=== PATIENT | male | born 1945 | race Caucasian/White ===

== ENCOUNTER → 2018-02-12 08:30 | Outpatient (CLI) | payer MEDICARE, OTHER, SELFPAY ==
--- NOTE | 2018-02-12 | ASPOS_PTH ---
PATIENT: LIZZETTE BURGER LOC: [facility] U#:[id number] AGE/SX: 79/M ROOM: RE02/12/[address]: Dr. Marito Estevez MD : 1945 BED: DIS: SPEC #: [id number] RECD: 02/12/18 12:09 STATUS: MARKUS JESUS #: [id number] RYLAND: 02/12/18 00:[address]: Marito Estevez DEPT: CYTOLOGY RECD BY: Jose Fuentes ENTERED: 02/12/18 12:09 SP TYPE: ASP HERE OTHR DR: Dr. Lisa Cardenas MD Tissues: Postauricular region Procedures: Special Stain Group II Surgery Specimen Level IV Diff Quik Stain (control) Cell Block Cytology Other Fine Needle Asp on Site HEADER OPERATION: FNA left post auricular mass PRE-OP DIAGNOSIS: Left post auricular mass TISSUE SUBMITTED: Left post auricular mass, smear and cell block for cytology DIAGNOSIS CYTOLOGY Left posterior auricular mass, FNA (smears and cell block): Negative for malignant cells. See cytology study and comment. SJ:francesca 02/13/18 COMMENT The specimen is evaluated at the time of FNA by Dr. Tirado. Immediate Evaluation: Negative for malignant cells. Fibrofatty tissue and rare macrophages present. Correlation with clinical, radiologic findings and appropriate follow up are necessary. Rebiopsy is suggested if clinically indicated. CYTOLOGY STUDY Slides are reviewed. The specimen is paucicellular and consists of a minute fragment of fibrofatty tissue and rare macrophages and lymphocytes. The cell block is acellular. CYTOLOGY GROSS Received is 0.1 ml of goetz fluid labeled with the patient's name, and designated left post auricular mass. Two imprints are made from the submitted fluid and the rest is added to CytoLyt for cell block preparation. Submitted for cytology study. / AM:francesca 02/12/18 TC: Cannot code CPT: 11429, 37391, 13695, 21543
== END ==
PROVIDERS: Family Provider Internal Medicine; PCP Internal Medicine; Visit Provider Otolaryngology
DX: H61.192 Noninfective disorders of pinna, left ear (principal)
CPT/HCPCS: 10021; 88161; 88305; 88313

== ENCOUNTER 2018-06-05 10:46 | Emergency (ER) | payer MEDICARE, OTHER, SELFPAY ==
[2018-06-05 10:47] VITALS: BP 142/79; PULSE 58; RESP 18; TEMP 36.5; O2SAT 96; BMI 34.4
[2018-06-05 10:57] VITALS: BP 135/97; PULSE 56; RESP 14; O2SAT 95
--- NOTE | 2018-06-05 11:37 | EKG12_ITS ---
Test Reason : CP Blood Pressure : / mmHG Vent. Rate : 055 BPM Atrial Rate : 055 BPM P-R Int : 158 ms QRS Dur : 102 ms QT Int : 428 ms P-R-T Axes : 040 -17 -07 degrees QTc Int : 409 ms Sinus bradycardia Otherwise normal ECG Confirmed by AMALIA RAMIREZ, YAMILE ([id number]), telegraph editor FELICE LERNER ([id number]) on 06/09/2018 3:21:26 PM Referred By: PETRONA Confirmed By:YAMILE HOLLAND MD
--- NOTE | 2018-06-05 11:37 | RAD_ITS ---
STUDY: X-RAY CHEST REASON FOR EXAM: Male, 72 years old. Chest pain for 4 days TECHNIQUE: Single AP portable view of the chest. COMPARISON: December 14, 2016 FINDINGS: There remains mild elevation the right hemidiaphragm, nonspecific and stable. Minimal hypoventilatory changes noted at the right lung base otherwise lungs are clear. There is no demonstrated pleural abnormality. Normal size heart. Normal mediastinum and jr. Normal visualized pulmonary arteries. Mild atherosclerosis of the aortic arch noted. Normal visualized thoracic spine. Normal visualized ribs, clavicles, and shoulders. There is no demonstrated abnormality of the visualized soft tissue structures of the upper abdomen. RAD/Chest 1 View (Portable) IMPRESSION: No acute intrathoracic process. Stable appearance of the chest. Electronically Signed: Zohra Rey MD at 12:41 EDT , Service support ,
--- NOTE | 2018-06-05 11:56 | ED.DCSUM_ITS ---
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 He also indicates he is burping quite a bit. Indicates he had a prior negative cardiac stress test echo and other cardiac tests he was told at one time he might require an ablation to control the tachycardia but since being on the flecainide is been controlled he has had no fever no cough no history of DC PE or DVT wanted to explain the patient's been under considerable stress recently because of the sale of the [employer] he has been eating and drinking well bowel bladder habits been normal review of systems otherwise negative Physical Examination: [] Vital signs are within normal range see the nursing chart he is awake and alert he is resting comforting the bed head neck chest unremarkable the lungs are clear the heart tones are normal the abdomen soft nontender upper lower extremities unremarkable pulses are symmetric neurologically he is awake moving all 4 Test Results: [] Emergency Department Course and Treatment: [] The patient's EKG shows a sinus rhythm nothing acute, all of his labs are generally unremarkable see those reports, his creatinine is about 1.4 he had creatinines in that range in the past, on reevaluation he is remained stable vital signs remained stable and we discussed inpatient versus outpatient management he indicates he is been admitted before he understands the concept of occult cardiac disease sudden etc. is in the room with him, however he does not wish to be admitted he would prefer to go home and be managed as an outpatient, I spoke with Dr. Anaya his retail customer service representative we discussed all the above in detail by Dr. Anaya reports the patient had a prior negative cardiac cath, and an negative prior cardiac stress test, Dr. Anaya asked the patient call for an appointment and he would see him for close outpatient follow-up and otherwise he is to continue his regimen and notify Dr. Anaya or return for any changes Treatment Plan: [] Disposition: [] Home stable Impression: [] Nonspecific sense of chest discomfort, history of PVCs, history of A. fib This note was generated with [employer] software. It may contain incorrect words, spelling, and punctuation that were not noted in review of the chart prior to signing ED Disposition - Plan for ED Patient: Chief Complaint: Chest Pain Referrals: Lisa Cardenas MD [Primary Care Provider] -
[2018-06-05] MEDS: Aspirin 81 MG TAB.CHEW 324 MG PO (11:57)
[2018-06-05 11:58] VITALS: BP 153/101; PULSE 61; RESP 24; O2SAT 94
[2018-06-05 12:02] LABS: Absolute Lymphocyte Count 1.27 X10^3/ul (0.83-4.51); Absolute Neutrophil Count 4.7 X10^3/uL (2.0-7.7); Basophil# 0.04 X10^3/uL; Basophil% 0.5 % (0-1); Eosinophil# 0.48 X10^3/uL; Eosinophils% 6.6 % (0-5); Hematocrit 41.9 % (40-54); Hemoglobin 13.2 g/dl (13.0-16.5); Lymphocyte # 1.27 X10^3/ul (4.0); Lymphocyte % 17.4 % (19-41); Mean Corp Hgb Conc 31.5 g/gl (32-36); Mean Corpuscular Hgb 29.3 pg (27.0-32.0); Mean Corpuscular Volume 92.9 fL (80-94); Mean Platelet Vol. 10.3 fl (6.2-12.0); Monocyte# 0.81 X10^3/uL; Monocyte% 11.1 % (0-10); Neutrophil % 64.4 % (47-70); Platelet Count 223 K/mm3 (150-450); RBC Distribution Width SD 47.6 fl (35.1-43.9); Red Blood Count 4.51 M/mm3 (4.6-6.2); White Blood Count 7.3 K/mm3 (4.4-11.0)
[2018-06-05 12:03] LABS: POSITIVE COUNT NO; POSITIVE DIFFERENTIAL NO; POSITIVE MORPHOLOGY NO
[2018-06-05 12:13] LABS: Anion Gap 5 (5-15); BUN 24 mg/dL (7-18); BUN/Creat Ratio 16.1 RATIO (10-20); Calcium,Total 9.2 mg/dL (8.5-10.1); Chloride 106 mmol/L (98-107); Creatinine, Serum 1.49 mg/dL (0.70-1.30); EST Glomerular Filtration Rate 50 mL/min (>60); Est Glom Filt Rate - Afr Amer 60 mL/min (>60); Estimated Creatinine Clearance 47.63 ml/min; Glucose 109 mg/dL (74-106); Potassium 4.2 mmol/L (3.5-5.1); Sodium Level 141 mmol/L (136-145)
--- NOTE | 2018-06-05 12:57 | ED.DEP ---
ED Disposition - Plan for ED Patient: Chief Complaint: Chest Pain Instructions: ED Chest Pain Atypical Unkn Cause Referrals: Lisa Cardenas MD [Primary Care Provider] - Additional Instructions: Please call Dr. Anaya for follow-up appointment return for change in symptoms
[2018-06-05 13:14] VITALS: BP 135/78; PULSE 56; RESP 19; O2SAT 93
== END 2018-06-05 13:24 | disposition home or self-care (01) ==
LOC: ED 11:59
PROVIDERS: Emergency Provider Emergency Medicine; Family Provider Internal Medicine; PCP Internal Medicine
DX: R07.89 Other chest pain (principal); I49.3 Ventricular premature depolarization; I48.91 Unspecified atrial fibrillation; Z79.899 Other long term (current) drug therapy
CPT/HCPCS: 71045; 80048; 84484; 85025; 93005; 99285; A4216; J2405

== ENCOUNTER 2018-10-02 16:50 | Emergency (ER) | payer MEDICARE, OTHER, SELFPAY ==
[2018-10-02 16:50] VITALS: BP 152/91; PULSE 61; RESP 14; TEMP 36.4; O2SAT 95; BMI 35.2
--- NOTE | 2018-10-02 19:05 | CT_ITS ---
STUDY: CT BRAIN WITHOUT CONTRAST REASON FOR EXAM: Male, 72 years old. Fall RADIATION DOSAGE (If Supplied By Facility): CTDIvol = ( 44.99 ) mGy, DLP = ( 815.79 ) mGycm TECHNIQUE: Transaxial CT imaging of the brain was performed without administration of intravenous contrast material. Individualized dose optimization techniques were used for this CT. COMPARISON: None. FINDINGS: Normal soft tissue structures. Normal calvarium. Normal size ventricles and extra-axial spaces for the patient's age. Bilateral white matter microangiopathic ischemic changes of the cerebral hemispheres. Possible old lacunar infarcts or prominent perivascular spaces of the basal ganglia. Normal thalami. Normal brainstem. Normal cerebellum. There is no intracranial hemorrhage. There are no findings of an acute ischemic infarction. Normal visualized paranasal sinuses. CT/Brain/Head without Contrast IMPRESSION: Age-related and chronic changes of the brain. Electronically Signed: John Campos DO at 20:24 EST Tel [phone], Service support ,
--- NOTE | 2018-10-02 19:05 | CT_ITS ---
STUDY: CT CERVICAL SPINE WITHOUT CONTRAST REASON FOR EXAM: Male, 72 years old. Fall. RADIATION DOSAGE (If Supplied By Facility): CTDIvol = ( 30.17 ) mGy, DLP = ( 741.38 ) mGycm TECHNIQUE: High resolution transaxial imaging was performed without contrast material. Sagittal and coronal images were reconstructed. Individualized dose optimization techniques were used for this CT. COMPARISON: None FINDINGS: Normal craniovertebral junction. There are degenerative changes of the anterior atlantoaxial articulation. Normal odontoid process. There is loss of the normal cervical lordosis. There is multilevel degenerative disc disease and facet hypertrophy. C2-3: There is facet hypertrophy associated with narrowing of the left intervertebral neuroforamina. C3-4: There is fusion of the vertebral bodies. There is a posterior disc osteophyte causing stenosis of the central canal and bilateral narrowing of the neuroforamina. C4-5: There is a posterior disc osteophyte causing stenosis of the central canal and bilateral narrowing of the neuroforamina. C5-6: There is a posterior disc osteophyte causing stenosis of the central canal and bilateral narrowing of the neuroforamina. C6-7: There is a posterior disc osteophyte causing stenosis of the central canal and bilateral narrowing of the neuroforamina. C7-T1: There is a posterior disc osteophyte causing stenosis of the central canal and bilateral narrowing of the neuroforamina. Normal visualized soft tissue structures. CT/Spine Cervical without Contras IMPRESSION: Multilevel degenerative changes, as described above. Electronically Signed: Trena Gallardo MD at 20:21 EST Tel , Service support ,
--- NOTE | 2018-10-02 19:10 | ED.DCSUM_ITS ---
- ER Visit Summary Date of Service: 10/02/18 Chief Complaint: Fall History of Present Illness: The patient is a 72 M presenting after fall x2. Patient had a fall 2 weeks ago at a gas station when he tripped over the gas hose and fell forward hitting his chin. He did not lose consciousness. 1 week ago he slipped on ice and fell hitting the back of his head. He did not lose consciousness with this fall either. He is not on anticoagulants. He complains of right rib pain. His was concerned today because he did not remember making his bed. They are currently staying with friends. has noticed other problems with memory over the past week. Denies numbness or weakness. Denies vision or speech changes. Denies other complaints. Physical Examination: Vitals are stable. Patient is afebrile. Alert no acute distress. HEENT exam is unremarkable. Neck is supple. Mild diffuse tenderness with no step-off Lungs are clear and equal bilaterally. Right lateral chest wall tenderness with no crepitus Heart is regular rate and rhythm. Abdomen is soft nontender nondistended. No rebound or guarding. Extremities are unremarkable. Skin is warm and dry. No focal neurologic deficit. NIH 0 Remainder of exam is unremarkable. Emergency Department Course and Treatment: CT head and neck show no acute process. Right rib series shows RIBS: Acute right fourth and fifth rib fractures. CHEST: No acute cardiopulmonary process. Patient is given an incentive spirometer. He declined pain medication. He is resting comfortably on reevaluation. He has no further symptoms. He is advised to follow-up with his primary care physician. Advised return to ED if worsening complaints. Disposition: Discharge home Impression: Closed head injury, right fourth and fifth rib fracture This note was generated with [employer] dictation software. It may contain incorrect words, spelling, and punctuation that were not noted in review of the chart prior to signing ED Disposition - Plan for ED Patient: Instructions: ED Concussion, ED Fx Rib Referrals: Lisa Cardenas MD [Primary Care Provider] -
[2018-10-02 19:28] VITALS: BP 150/90; PULSE 55; RESP 18; O2SAT 93
--- NOTE | 2018-10-02 19:50 | RAD_ITS ---
STUDY: X-RAY - UNILATERAL RIBS ( RIGHT ) WITH CHEST REASON FOR EXAM: Male, 72 years old. Fall TECHNIQUE - RIBS: 4 view(s) of the ribs. TECHNIQUE - CHEST: PA COMPARISON: June 05, 2018 FINDINGS - RIBS: There are acute right lateral third and fourth rib fractures. FINDINGS - CHEST: The lungs are clear and expanded. There is no demonstrated pleural abnormality. Normal size heart. Normal mediastinum and jr. Normal visualized pulmonary arteries. There is atherosclerotic calcification of the aortic arch. Normal visualized thoracic spine. There is no demonstrated abnormality of the visualized soft tissue structures of the upper abdomen. RAD/Ribs Uni Min 3V w/PA Chest IMPRESSION: RIBS: Acute right fourth and fifth rib fractures. CHEST: No acute cardiopulmonary process. Electronically Signed: Trena Gallardo MD at 20:34 EST Tel , Service support ,
[2018-10-02 20:59] VITALS: BP 176/102; PULSE 58; RESP 16; O2SAT 97
--- NOTE | 2018-10-02 20:59 | ED.DEP ---
ED Disposition - Plan for ED Patient: Instructions: ED Concussion, ED Fx Rib Referrals: Lisa Cardenas MD [Primary Care Provider] -
== END 2018-10-02 21:18 | disposition home or self-care (01) ==
LOC: ED 19:13
PROVIDERS: Emergency Provider Emergency Medicine; Family Provider Internal Medicine; PCP Internal Medicine
DX: S22.41XA Multiple fractures of ribs, right side, initial encounter for closed fracture (principal); S09.90XA Unspecified injury of head, initial encounter; E11.9 Type 2 diabetes mellitus without complications; I10 Essential (primary) hypertension; E78.00 Pure hypercholesterolemia, unspecified; K21.9 Gastro-esophageal reflux disease without esophagitis; I48.91 Unspecified atrial fibrillation; Z79.82 Long term (current) use of aspirin; Z79.84 Long term (current) use of oral hypoglycemic drugs; Z79.899 Other long term (current) drug therapy; W00.0XXA Fall on same level due to ice and snow, initial encounter; Y93.89 Activity, other specified; Y92.89 Other specified places as the place of occurrence of the external cause; Y99.8 Other external cause status
CPT/HCPCS: 70450; 71101; 72125; 99282

== ENCOUNTER → 2020-06-20 10:53 | Outpatient (CLI) | payer MEDICARE, OTHER, SELFPAY ==
--- NOTE | 2020-06-20 10:53 | LYMN_PTH ---
PATIENT: LIZZETTE BURGER LOC: [facility] U#:[id number] AGE/SX: 79/M ROOM: RE06/20/[address]: Dr. Marito Estevez MD : 1945 BED: DIS: SPEC #: [id number] RECD: 06/20/20 14:59 STATUS: MARKUS JESUS #: [id number] RYLAND: 06/20/20 10:[address]: Marito Estevez DEPT: SURGICAL PATHOLOGY RECD BY: Sudha Watkins ENTERED: 06/21/20 09:38 SP TYPE: LYMPH NODE OTHR DR: Dr. 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 SJ:francesca 06/22/20 COMMENT The specimen is evaluated at the time of touch imprint by Dr. Eason. Immediate Evaluation = Paucicellular specimen. Significant number of lymphocytes are not seen. Case has been reviewed in consultation with Dr. iTrado who concurs with the above diagnosis. IDC:AM MICROSCOPIC DESCRIPTION Slides are reviewed. GROSS DESCRIPTION Received in saline is one container labeled with the patient's name and designated excision left neck mass. The specimen consists of an ovoid piece of goetz soft tissue measuring 1 x 1 x 0.5 cm. A section is saved for flow cytometry study, if needed. Two touch imprints are prepared. The entire specimen is submitted in one cassette. / AC:francecsa 06/21/20 TC:1 CPT: 76119, 98462
== END ==
PROVIDERS: PCP Internal Medicine; Referring Provider Otolaryngology; Visit Provider Otolaryngology
DX: R22.1 Localized swelling, mass and lump, neck (principal)
CPT/HCPCS: 88304; 88305; 88313

== ENCOUNTER 2020-08-23 11:25 | Emergency (ER) | payer MEDICARE, OTHER, SELFPAY ==
[2020-08-23 11:26] VITALS: BP 102/41; PULSE 162; RESP 20; TEMP 36.4; O2SAT 96; BMI 34.0
--- NOTE | 2020-08-23 11:46 | EKG12_ITS ---
Test Reason : IRREGULAR RYTHMN Blood Pressure : / mmHG Vent. Rate : 161 BPM Atrial Rate : 138 BPM P-R Int : 000 ms QRS Dur : 088 ms QT Int : 298 ms P-R-T Axes : 000 006 -54 degrees QTc Int : 487 ms Supraventricular tachycardia Marked ST abnormality, possible inferolateral subendocardial injury Abnormal ECG Confirmed by TYRONE RAMIREZ, HARLEEN ([id number]), news editor ANTONIA CHEN ([id number]) on 08/29/2020 9:20:54 AM Referred By: SHAWN Confirmed By:MAMI HANSEN MD
--- NOTE | 2020-08-23 11:50 | RAD_ITS ---
STUDY: X-RAY CHEST REASON FOR EXAM: Male, 74 years old. CHEST PAIN TECHNIQUE: Single AP portable view of the chest. COMPARISON: None. FINDINGS: The lungs are clear and expanded. There is no demonstrated pleural abnormality. Normal size heart. Normal mediastinum and jr. Normal visualized pulmonary arteries. Normal visualized aortic arch and descending thoracic aorta. Normal visualized thoracic spine. There is degenerative osteoarthritis of the bilateral shoulders. There is no demonstrated abnormality of the visualized soft tissue structures of the upper abdomen. RAD/Chest 1 View (Portable) IMPRESSION: Normal x-ray examination of the chest. Electronically Signed: Tavares Fuentes, at 12:25 EST Tel , Service support ,
[2020-08-23 11:51] VITALS: BP 181/110; PULSE 78; RESP 22; O2SAT 92
--- NOTE | 2020-08-23 11:53 | ED.DCSUM_ITS ---
History of Present Illness Chief Complaint: Palpitations Informant: Patient Narrative: Patient is a 74-year-old male who presents to the emergency department for generally not feeling well and feeling gassy. He states that he was out walking around whenever this hit him. He had 2 episodes like this on [place] but they resolved after taking an extra dose of his flecainide. He does have a distant history of atrial fibrillation. Is not on any anticoagulation now. Is only on baby aspirin. No history of heart attacks, DVT/PE. Denies any recent illness. He does not have any chest pain, shortness of breath or heart palpitations. Denies any abdominal pain or nausea/vomiting. He denies smoking history. Past Medical History - Allergies and Home Meds Allergies/Adverse Reactions: Allergies naproxen [From Naprosyn] Adverse Reaction (Verified 08/23/20 11:26) Nausea Primary Care Physician: Lisa Cardenas MD [Primary Care Provider] - Prior records reviewed: Yes Past Medical History: - - Hypertension, hyperlipidemia, asthma, A. fib Surgical History: cataract, tonsillectomy, - - Surgery for anal fissure. Smoking Status: Never smoker - Family History Maternal Family History: Reports: No pertinent history Paternal Family History: Reports: No pertinent history Review of Systems All systems negative except as indicated General: Reports: Malaise. Denies: Chills, Fever, Sweats Eyes: Denies: Visual changes - bilaterally, Diplopia ENT: Denies: Rhinorrhea, Sore throat Cardiovascular: Denies: Chest pain, Palpitations Respiratory: Denies: Dyspnea, Cough, Dyspnea on exertion Gastrointestinal: Denies: Abdominal pain, Nausea, Vomiting, Diarrhea Musculoskeletal: Denies: Back pain, Extremity Pain Skin: Denies: Rash, Wounds Neurological: Denies: Headache, Weakness, Numbness Physical Exam Vital Signs/Narrative: Vital Signs Temp Pulse Resp BP Pulse Ox 08/23/20 11:51 78 22 H 181/110 H 92 08/23/20 11:26 97.5 F L 162 H 20 H 102/41 L 96 Inital Vital Signs reviewed: Yes - Severe tachycardia General: Well nourished, Well developed, - - He does appear in mild distress Head: Normocephalic, Atraumatic Eyes: Perrl, EOMI ENT: Moist mucous membranes, No rhinorrhea Neck: Supple, Nontender Cardiovascular: Regular rhythm, No murmurs, Tachycardia Respiratory: No distress, CTA bilaterally, Chest nontender Abdomen: Soft, Nontender, Nondistended, Normal bowel sounds Back: Nontender, Normal Inspection Extremities: Nontender, No edema. Negative for: Calf Tenderness Skin: Normal color, No rash Neurological: Alert, Oriented x3, Cranial nerves II-XII grossly intact, Normal Strength, Normal Sensation Psychological: Normal affect, Normal Mood Diagnostic/Tx/Re-eval - EKG Initial EKG Interpretation: - - Rate of 161 bpm and SVT. Normal intervals. Normal axis. No significant ST elevations or depressions. Follow-up EKG Interpretation: - - Rate of 76 bpm and normal sinus rhythm. Normal intervals. Normal axis. No ST elevations or depressions. No T wave abnormalities. - Medical Decision Making Patient presents to the emergency department for generally not feeling well and felt gassy that he could belch. Upon arrival to the emergency department he was found to have a heart rate in the 160s. He was also hypotensive with maps in the low 60s. We did initially attempt to perform a vagal maneuver with carotid massage. This did not make any difference. We did help patient up to pads for potential cardioversion if blood pressure continued to drop. Adenosine was getting ready to be pushed. Patient had normal saline starting to be instilled. At that time he did convert to a normal sinus rhythm and blood pressure actually became hypertensive at that point. Lab work sent off and repeat EKG obtained. Will check chest x-ray. Patient's lab work-up did not reveal a significant acute abnormality. His magnesium was mildly low so this was replaced. His creatinine appears to be at baseline. I did contact his marketing sales representative and they recommended increase his metoprolol from 25 mg daily to 25 mg twice daily. We are going to follow-up with him as an outpatient otherwise. He has only seen the patient one other time and was not exactly sure why the patient has been on flecainide this entire time. He does want him to continue his normal dose of this at this time though. Patient was observed on the monitor and did have some PACs but otherwise did not convert back out of sinus rhythm. His blood pressure has been stable. He does feel much better and is comfortable going home at this time. Will discharge home in stable condition. Strict return precautions were discussed with him. He understands and is agreeable this plan. All questions were answered. ED Disposition - Plan for ED Patient: Disposition: Home or Assisted Living Diagnosis: SVT (supraventricular tachycardia) Instructions: ED About Arrhythmias Prescriptions: Metoprolol Tartrate 25 mg PO BID 30 Days #60 tab Prescription Printed Referrals: Lisa Cardenas MD [Primary Care Provider] - Additional Instructions: Please call your marketing sales representative office today to schedule appointment within the next week. Also increase your metoprolol to 25 mg twice a day
--- NOTE | 2020-08-23 11:53 | EKG12_ITS ---
Test Reason : REPEAT Blood Pressure : / mmHG Vent. Rate : 076 BPM Atrial Rate : 076 BPM P-R Int : 164 ms QRS Dur : 094 ms QT Int : 384 ms P-R-T Axes : 035 -10 003 degrees QTc Int : 432 ms Normal sinus rhythm Normal ECG Confirmed by TYRONE RAMIREZ, HARLEEN ([id number]), mapping editor FELICE LERNER ([id number]) on 08/30/2020 4:13:51 PM Referred By: MAURICIO Confirmed By:MAMI HANSEN MD
[2020-08-23 11:56] LABS: Absolute Lymphocyte Count 1.37 X10^3/uL (0.83-4.51); Absolute Neutrophil Count 5.9 X10^3/uL (2.0-7.7); Basophil# 0.06 X10^3/uL; Basophil% 0.7 % (0-1); Eosinophil# 0.43 X10^3/uL; Hematocrit 50.4 % (40-54); Lymphocyte # 1.37 X10^3/ul (4.0); Lymphocyte % 15.8 % (19-41); Mean Corp Hgb Conc 31.7 g/dL (32-36); Mean Corpuscular Hgb 30.5 pg (27.0-32.0); Mean Platelet Vol. 10.9 fl (6.2-12.0); Monocyte# 0.91 X10^3/uL; Monocyte% 10.5 % (0-10); NRBC Flagged by Analyzer 0 % (0-5); Neutrophil # 5.88 X10^3/uL (2.7-7.7); Neutrophil % 67.8 % (47-70); Platelet Count 238 K/mm3 (150-450); RBC Distribution Width CV 13.9 % (11.6-14.6); Red Blood Count 5.25 M/mm3 (4.6-6.2); White Blood Count 8.7 K/mm3 (4.4-11.0)
[2020-08-23 12:11] LABS: Anion Gap 6 (5-15); BUN 21 mg/dL (7-18); BUN/Creat Ratio 13.3 RATIO (10-20); Calcium,Total 9.5 mg/dL (8.5-10.1); Chloride 105 mmol/L (98-107); Creatinine, Serum 1.58 mg/dL (0.70-1.30); EST Glomerular Filtration Rate 46 mL/min (>60); Est Glom Filt Rate - Afr Amer 56 mL/min (>60); Estimated Creatinine Clearance 42.26 ml/min; Glucose 154 mg/dL (74-106); Magnesium 1.5 mg/dL (1.6-2.6); Potassium 3.8 mmol/L (3.5-5.1); Sodium Level 139 mmol/L (136-145)
[2020-08-23] MEDS: 0.9% Normal Saline 1,000 ML 999 ML IV (12:30)
[2020-08-23 14:00] VITALS: BP 135/86; PULSE 66; RESP 18; O2SAT 96
[2020-08-23 15:00] VITALS: BP 136/92; PULSE 63
== END 2020-08-23 15:03 | disposition home or self-care (01) ==
PROVIDERS: Emergency Provider Emergency Medicine; PCP Internal Medicine
DX: I47.1 Supraventricular tachycardia (principal)
CPT/HCPCS: 71045; 80048; 83735; 84484; 85025; 93005; 99284; J7030; A4216; J0153

== ENCOUNTER 2021-08-25 09:49 | Emergency (ER) | payer MEDICARE, OTHER, SELFPAY ==
[2021-08-25] VITALS (11 sets, daily range): BP systolic 110–153; BP diastolic 60–104; PULSE 83–136; RESP 18–25; TEMP 36.6; O2SAT 92–95; BMI 37.1
--- NOTE | 2021-08-25 10:13 | EKG12_ITS ---
Test Reason : AFIB Blood Pressure : / mmHG Vent. Rate : 137 BPM Atrial Rate : 141 BPM P-R Int : 000 ms QRS Dur : 098 ms QT Int : 306 ms P-R-T Axes : 000 -07 -28 degrees QTc Int : 462 ms Atrial fibrillation with premature ventricular or aberrantly conducted complexes Nonspecific ST abnormality Abnormal ECG Confirmed by RIO RAMIREZ, CHATO ([id number]), state editor SHERRELL GRADY ([id number]) on 08/30/2021 9:55:45 AM Referred By: CESAR Confirmed By:CHATO PATE MD
[2021-08-25 10:23] LABS: Absolute Lymphocyte Count 1.58 X10^3/uL (0.83-4.51); Absolute Neutrophil Count 4.5 X10^3/uL (2.0-7.7); Basophil# 0.08 X10^3/uL; Basophil% 1.1 % (0-1); Eosinophil# 0.42 X10^3/uL; Eosinophils% 5.7 % (0-5); Hematocrit 47.4 % (40-54); Hemoglobin 15.6 g/dL (13.0-16.5); Lymphocyte # 1.58 X10^3/ul (0.83-4.51); Lymphocyte % 21.3 % (19-41); Mean Corp Hgb Conc 32.9 g/dL (32-36); Mean Corpuscular Hgb 30.8 pg (27.0-32.0); Mean Corpuscular Volume 93.5 fL (80-94); Mean Platelet Vol. 10.6 fl (6.2-12.0); Monocyte% 10.8 % (0-10); NRBC Flagged by Analyzer 0 % (0-5); Neutrophil # 4.54 X10^3/uL (2.7-7.7); Platelet Count 251 K/mm3 (150-450); RBC Distribution Width CV 13.2 % (11.6-14.6); Red Blood Count 5.07 M/mm3 (4.6-6.2); White Blood Count 7.4 K/mm3 (4.4-11.0)
[2021-08-25] MEDS: dilTIAZem 25 MG/5 ML Vial 10 MG IV BOLUS ×2 (10:33→12:05)
--- NOTE | 2021-08-25 10:33 | EDS_ITS ---
HPI History of Present Illness Chief Complaint: Palpitations Narrative Narrative: 75-year-old male with history of atrial fibrillation presenting with palpitations. He states this started about 7 AM. Patient states that he is on flecainide 50 mg, metoprolol tartrate 25 mg p.o. twice daily. He states that his arcgis developer told him in the past if he has breakthrough atrial fibrillation that he should take an extra dose of the flecainide which he did. His first dose was at about 8:00. A second dose was about 840. Patient denies any chest pain or shortness of breath. He has no leg swelling. He is not had fever, chills, cough. Patient states that he is not on anticoagulation for his atrial fibrillation. Patient relates that his last breakthrough was years ago and he states he was given magnesium. His arcgis developer stated that his magnesium was not low enough to cause of breakthrough atrial fibrillation however he does state that his heart rate got better with magnesium. Patient states that he is not anticoagulated with his atrial fibrillation. [facility] Medical History Afib Anal fissure Diabetes GERD (gastroesophageal reflux disease) High blood cholesterol Hypertension Home Medications Centrum Silver 1 ea PO DAILY 07/24/13 [History Last Taken 12/14/16 07:00] aspirin 81 mg PO DAILY@0800 07/24/13 [History Last Taken 12/14/16 07:00] lisinopril 20 mg PO DAILY 07/24/13 [History Last Taken 12/14/16 07:00] metformin 1,000 mg PO BIDCM 07/24/13 [History Last Taken 12/14/16 07:00] metoprolol tartrate 25 mg PO BID 07/24/13 [History Last Taken 12/14/16 07:00] tamsulosin 0.4 mg PO BID 07/24/13 [History Last Taken 12/14/16 07:00] biotin 5 mg PO DAILY 12/14/16 [History Last Taken Unknown] flecainide 50 mg PO BID 12/14/16 [History Last Taken Unknown] pravastatin [Pravachol] 40 mg PO QHS 12/14/16 [History Last Taken Unknown] pantoprazole 40 mg PO DAILY #30 tablet 12/15/16 [Rx Last Taken Unknown] coenzyme Q10 200 mg PO DAILY 10/02/18 [History Last Taken Unknown] apixaban [Eliquis] 5 mg PO BID #74 tab 08/25/21 [Rx Last Taken Unknown] fluticasone furoate-vilanterol [Breo Ellipta] 1 inh INHALATION DAILY 08/25/21 [History Last Taken Unknown] levalbuterol tartrate [Xopenex HFA] 1 puff INHALATION Q6H 08/25/21 [History Last Taken Unknown] magnesium oxide 400 mg PO BID #60 tab 08/25/21 [Rx Last Taken Unknown] metoprolol tartrate 75 mg PO BID #60 tab 08/25/21 [Rx Last Taken Unknown] Allergy/AdvReac Type Severity Reaction Status Date / Time naproxen [From Naprosyn] AdvReac Nausea Verified 08/25/21 09:57 Surgical History Hx of tonsillectomy Social History Smoking Status: Never smoker ROS ROS ED Constitutional Constitutional ED: Denies chills or fever(s) Eyes Eyes: Denies blurry vision or change in vision ENT ENT ED: Denies rhinorrhea or sore throat Cardiovascular Cardiovascular: Reports palpitations and racing heartbeat; Denies chest pain Respiratory/Chest Respiratory/Chest: Denies cough, dyspnea, dyspnea on exertion or sputum Gastrointestinal Gastrointestinal: Denies abdominal pain, nausea or vomiting Genitourinary Genitourinary ED: Denies dysuria Musculoskeletal Musculoskeletal: Denies arthralgias or myalgias Integumentary Denies Abrasions or rash Neurologic Neurologic: Denies headache(s) or paresthesias Psychiatric Psychiatric: Denies anxiety or depression EXAM Physical Exam Const Vital Signs: 08/25/21 09:51 08/25/21 10:05 08/25/21 10:36 Temperature 97.9 F Temperature Source Oral Pulse Rate 133 H Respiratory Rate 25 H Respiratory Effort Normal Non-Labored Respiratory Pattern Normal Blood Pressure 153/104 H Blood Pressure Mean 120 Pulse Ox 95 95 Oxygen Delivery Method Room Air Room Air 08/25/21 10:50 08/25/21 12:07 08/25/21 13:05 Temperature Temperature Source Pulse Rate 118 H 136 H 128 H Respiratory Rate 18 23 H 20 H Respiratory Effort Respiratory Pattern Blood Pressure 144/102 H 149/96 H 141/90 H Blood Pressure Mean 116 113 107 Pulse Ox 93 93 95 Oxygen Delivery Method Room Air Room Air Room Air 08/25/21 14:02 08/25/21 14:26 08/25/21 15:01 Temperature Temperature Source Pulse Rate 129 H 97 99 Respiratory Rate 18 19 H 18 Respiratory Effort Respiratory Pattern Blood Pressure 133/89 H 133/89 H 110/60 Blood Pressure Mean 103 103 76 Pulse Ox 94 93 94 Oxygen Delivery Method Room Air Room Air Room Air 08/25/21 16:01 08/25/21 17:22 08/25/21 17:53 Temperature Temperature Source Pulse Rate 83 120 H 113 H Respiratory Rate 24 H 21 H Respiratory Effort Respiratory Pattern Blood Pressure 126/76 H 115/95 H 115/82 H Blood Pressure Mean 92 101 Pulse Ox 92 94 94 Oxygen Delivery Method Room Air Room Air Positive well nourished General Appearance ED: NAD; Negative for pallor HEENT Reports moist mucous membranes normocephalic and atraumatic Eyes PERRL and EOMs intact bilaterally General Eye ED: Negative for pale conjunctiva or scleral icterus Neck no lymphadenopathy and supple Resp normal respiratory effort Effort and Inspection: respiratory distress Cardio Rate: tachycardic Rhythm: abnormal rhythm irregularly irregular GI normal to inspection, nondistended, normoactive bowel sounds Extremity General Extremety ED: Negative for edema or tenderness General Extremity: Negative for edema Neuro oriented x3 Sensorium / Orientation: awake and alert Psych mental status grossly normal Skin General Skin Exam: Negative for jaundice or pallor MDM MDM MDM Narrative Medical decision making narrative: At the time of my evaluation the patient is noted to have runs of sinus rhythm alternating with what looks like atrial fibrillation on the monitor. He has taken an extra dose of his flecainide prior to arrival and this is about 2 hours ago. The patient's states that his heart rate was around 180 at home and is now down to 1 15-1 30s. It does look as though the medication is possibly starting to work. I will give him 10 mg dose of Cardizem IV. Patient did not respond fully and was given a second dose of Cardizem 10 mg IV at which point his heart rate came down to 90. His lab work-up currently shows that his CBC and BMP are normal. High-sensitivity troponin is 17. BNP slightly elevated at 101.5 however chest x-ray my interpretation shows no acute cardiopulmonary process and there is no sign of CHF. Magnesium is normal at 1.9. Patient came tachycardic and was given a dose of Cardizem 20 mg IV. I spoke with Dr. Salter regarding his medications to try to get him home because I cannot contact his arcgis developer because they are not in office and there is nobody route contractor. She did recommend giving him 75 mg of metoprolol tartrate here in the ED. She also recommended giving him magnesium to the IV 4 g. Patient is also recommended to start 75 mg metoprolol tartrate twice daily as well as start Eliquis 5 mg p.o. twice daily. It is recommended that he hold his flecainide for now. He will follow-up with his arcgis developer on Saturday. His heart rate is now stable. All instructions discussed with family and him. They understand. They are given return precautions. Impression: 1. A. fib with RVR Lab Data Attestation: I reviewed the patient's lab results. Labs: Laboratory Results - last 24 hr 08/25/21 08/25/21 08/25/21 09:40 09:40 09:40 WBC 7.4 RBC 5.07 Hgb 15.6 Hct 47.4 MCV 93.5 MCH 30.8 MCHC 32.9 RDW Std Deviation 45.0 H RDW Coeff of Justice 13.2 Plt Count 251 MPV 10.6 Immature Gran % (Auto) 0.100 Neut % (Auto) 61.0 Lymph % (Auto) 21.3 [place] % (Auto) 10.8 H Eos % (Auto) 5.7 H Baso % (Auto) 1.1 H Absolute Neuts (auto) 4.5 Absolute Lymphs (auto) 1.58 Nucleated RBC % 0 Sodium 141 Potassium 3.8 Chloride 105 Carbon Dioxide 31.0 Anion Gap 5 BUN 21 H Creatinine 1.26 Estim Creat Clear Calc 52.21 Est GFR (MDRD) Af Amer 72 Est GFR (MDRD) Non-Af 60 BUN/Creatinine Ratio 16.7 Glucose 227 H Calcium 9.6 Magnesium Troponin I High Sens 17 B-Natriuretic Peptide 101.5 H 08/25/21 09:40 WBC RBC Hgb Hct MCV MCH MCHC RDW Std Deviation RDW Coeff of Justice Plt Count MPV Immature Gran % (Auto) Neut % (Auto) Lymph % (Auto) [place] % (Auto) Eos % (Auto) Baso % (Auto) Absolute Neuts (auto) Absolute Lymphs (auto) Nucleated RBC % Sodium Potassium Chloride Carbon Dioxide Anion Gap BUN Creatinine Estim Creat Clear Calc Est GFR (MDRD) Af Amer Est GFR (MDRD) Non-Af BUN/Creatinine Ratio Glucose Calcium Magnesium 1.9 Troponin I High Sens B-Natriuretic Peptide Radiography Diagnostic Testing: Clinical Impression(s) from Imaging Studies Chest X-Ray 08/25/21 10:34 IMPRESSION: Nonacute portable x-ray examination of the chest. Electronically Signed: Julius Hutson MD (Brooks) at 10:44 EST , Service support , Discharge Plan Triage Chief Complaint: Palpitations ED Provider: Jeff Jiménez Dx/Rx/DC Orders Instructions: ED AFIB Prescriptions: New metoprolol tartrate 75 mg tablet 75 mg PO BID Qty: 60 RF: 0 Eliquis 5 mg tablet 5 mg PO BID Qty: 74 RF: 0 magnesium oxide 400 mg magnesium tablet 400 mg PO BID Qty: 60 RF: 0 No Action lisinopril 20 MG tablet 20 mg PO DAILY RF: 0 tamsulosin 0.4 MG capsule 0.4 mg PO BID RF: 0 metformin 1,000 MG tablet 1,000 mg PO BIDCM RF: 0 metoprolol tartrate 50 MG tablet 25 mg PO BID RF: 0 aspirin 81 MG tablet,chewable 81 mg PO DAILY@0800 RF: 0 Centrum Silver 1 EACH tablet 1 ea PO DAILY RF: 0 biotin 5 MG capsule 5 mg PO DAILY RF: 0 flecainide 100 MG tablet 50 mg PO BID RF: 0 pravastatin [Pravachol] 20 MG tablet 40 mg PO QHS RF: 0 pantoprazole 40 MG tablet 40 mg PO DAILY Qty: 30 RF: 0 coenzyme Q10 50 MG tablet,chewable 200 mg PO DAILY RF: 0 levalbuterol tartrate [Xopenex HFA] 45 mcg/actuation Hfa Aerosol Inhaler 1 puff INHALATION Q6H RF: 0 Breo Ellipta 100-25 mcg/dose Blister With Device 1 inh INHALATION DAILY RF: 0 Primary Care Provider: Lisa Cardenas Referrals: Lisa Cardenas MD [Primary Care Provider] - Disposition Disposition: Home, Self Care Discharge Date/Time: 08/25/21 17:54
--- NOTE | 2021-08-25 10:34 | RAD_ITS ---
STUDY: X-RAY CHEST REASON FOR EXAM: Male, 75 years old. chest pain TECHNIQUE: AP COMPARISON: 08/23/2020 FINDINGS: Lungs are underexpanded with mild elevation of the right hemidiaphragm. No airspace consolidation. There is no demonstrated pleural abnormality. Normal size heart. Normal mediastinum and jr. Normal visualized pulmonary arteries. There is atherosclerotic calcification of the aortic arch with tortuosity. No acute bony process. There is no demonstrated abnormality of the visualized soft tissue structures of the upper abdomen. RAD/Chest 1 View (Portable) IMPRESSION: Nonacute portable x-ray examination of the chest. Electronically Signed: Julius Hutson MD (Brooks) at 10:44 EST , Service support ,
[2021-08-25 10:36] LABS: Anion Gap 5 (5-15); BUN 21 mg/dL (7-18); BUN/Creat Ratio 16.7 RATIO (10-20); Calcium,Total 9.6 mg/dL (8.5-10.1); Chloride 105 mmol/L (98-107); Creatinine, Serum 1.26 mg/dL (0.70-1.30); EST Glomerular Filtration Rate 60 mL/min (>60); Est Glom Filt Rate - Afr Amer 72 mL/min (>60); Estimated Creatinine Clearance 52.21 ml/min; Glucose 227 mg/dL (74-106); Potassium 3.8 mmol/L (3.5-5.1); Sodium Level 141 mmol/L (136-145); Troponin-I HS 17 pg/mL (3.0-78.0)
[2021-08-25 10:43] LABS: BNP,B-Type NATRIURETIC PEPTIDE 101.5 pg/mL (0-100)
[2021-08-25 11:09] LABS: Magnesium 1.9 mg/dL (1.6-2.6)
[2021-08-25] MEDS: dilTIAZem 25 MG/5 ML Vial 20 MG IV BOLUS (13:03)
[2021-08-25] MEDS: Metoprolol Tartrate 25 MG Tablet 75 MG PO (13:52)
[2021-08-25] MEDS: Magnesium Sulfate 4gm/100mL 4 GM/100 ML IV.SOLN. IV (13:53)
--- NOTE | 2021-08-25 16:13 | PCM.CONS.C ---
HPI Consult Data Date of Consult: 08/26/21 HPI Narrative HPI Narrative: LIZZETTE BURGER, is a 75 M who presents COUNT INCLUDES [facility] Medical History Afib Anal fissure Diabetes GERD (gastroesophageal reflux disease) High blood cholesterol Hypertension Home Medications Centrum Silver 1 ea PO DAILY 07/24/13 [History Last Taken 12/14/16 07:00] aspirin 81 mg PO DAILY@0800 07/24/13 [History Last Taken 12/14/16 07:00] lisinopril 20 mg PO DAILY 07/24/13 [History Last Taken 12/14/16 07:00] metformin 1,000 mg PO BIDCM 07/24/13 [History Last Taken 12/14/16 07:00] metoprolol tartrate 25 mg PO BID 07/24/13 [History Last Taken 12/14/16 07:00] tamsulosin 0.4 mg PO BID 07/24/13 [History Last Taken 12/14/16 07:00] biotin 5 mg PO DAILY 12/14/16 [History Last Taken Unknown] flecainide 50 mg PO BID 12/14/16 [History Last Taken Unknown] pravastatin [Pravachol] 40 mg PO QHS 12/14/16 [History Last Taken Unknown] pantoprazole 40 mg PO DAILY #30 tablet 12/15/16 [Rx Last Taken Unknown] coenzyme Q10 200 mg PO DAILY 10/02/18 [History Last Taken Unknown] apixaban [Eliquis] 5 mg PO BID #74 tab 08/25/21 [Rx Last Taken Unknown] fluticasone furoate-vilanterol [Breo Ellipta] 1 inh INHALATION DAILY 08/25/21 [History Last Taken Unknown] levalbuterol tartrate [Xopenex HFA] 1 puff INHALATION Q6H 08/25/21 [History Last Taken Unknown] magnesium oxide 400 mg PO BID #60 tab 08/25/21 [Rx Last Taken Unknown] metoprolol tartrate 75 mg PO BID #60 tab 08/25/21 [Rx Last Taken Unknown] Allergy/AdvReac Type Severity Reaction Status Date / Time naproxen [From Naprosyn] AdvReac Nausea Verified 08/25/21 09:57 Surgical History Hx of tonsillectomy Social History Smoking Status: Never smoker Objective Data Vital Signs: Vital Signs Temp Pulse Resp BP Pulse Ox 97.9 F 83 24 H 126/76 H 92 08/25/21 09:51 08/25/21 16:01 08/25/21 16:01 08/25/21 16:01 08/25/21 16:01 Oxygen Delivery Method Room Air Weight: 251 lb 8.759 oz Body Mass Index (BMI) 37.1 Lab / Micro Data Result Diagrams: 08/25/21 09:40 08/25/21 09:40 Labs: Laboratory Results - last 24 hr 08/25/21 09:40: WBC 7.4, RBC 5.07, Hgb 15.6, Hct 47.4, MCV 93.5, MCH 30.8, MCHC 32.9, RDW Std Deviation 45.0 H, RDW Coeff of Justice 13.2, Plt Count 251, MPV 10.6, Immature Gran % (Auto) 0.100, Neut % (Auto) 61.0, Lymph % (Auto) 21.3, [place] % (Auto) 10.8 H, Eos % (Auto) 5.7 H, Baso % (Auto) 1.1 H, Absolute Neuts (auto) 4.5, Absolute Lymphs (auto) 1.58, Nucleated RBC % 0 08/25/21 09:40: Sodium 141, Potassium 3.8, Chloride 105, Carbon Dioxide 31.0, Anion Gap 5, BUN 21 H, Creatinine 1.26, Estim Creat Clear Calc 52.21, Est GFR (MDRD) Af Amer 72, Est GFR (MDRD) Non-Af 60, BUN/Creatinine Ratio 16.7, Glucose 227 H, Calcium 9.6, Troponin I High Sens 17 08/25/21 09:40: B-Natriuretic Peptide 101.5 H 08/25/21 09:40: Magnesium 1.9 Cardiology Labs/Tests 08/25/21 09:40: WBC 7.4, RBC 5.07, Hgb 15.6, Hct 47.4, MCV 93.5, MCH 30.8, MCHC 32.9, Plt Count 251, MPV 10.6, Immature Gran % (Auto) 0.100, Neut % (Auto) 61.0, Lymph % (Auto) 21.3, [place] % (Auto) 10.8 H, Eos % (Auto) 5.7 H, Baso % (Auto) 1.1 H, Absolute Neuts (auto) 4.5, Nucleated RBC % 0 08/25/21 09:40: Sodium 141, Potassium 3.8, Chloride 105, Carbon Dioxide 31.0, Anion Gap 5, BUN 21 H, Creatinine 1.26, Est GFR (MDRD) Af Amer 72, Est GFR (MDRD) Non-Af 60, BUN/Creatinine Ratio 16.7, Glucose 227 H, Calcium 9.6 08/25/21 09:40: B-Natriuretic Peptide 101.5 H 08/25/21 09:40: Magnesium 1.9 Rhythm: EKG: ECHO: Stress Test: Cardiac Cath: PCI: CT Surgery: Holter monitor: EPS: PPM: CXR: Chest CT Scan: Radiography Diagnostic Testing: Radiology Impression Chest X-Ray 08/25/21 10:34 IMPRESSION: Nonacute portable x-ray examination of the chest. Electronically Signed: Julius Hutson MD (Brooks) at 10:44 EST , Service support ,
--- NOTE | 2021-08-25 16:23 | PCM.CONS.C ---
HPI Consult Data Date of Consult: 08/26/21 HPI Narrative HPI Narrative: LIZZETTE BURGER, is a 75 M who presents to the emergency department with symptomatic atrial fibrillation with rapid ventricular rate. He does have a history of atrial fibrillation dating back several years, with infrequent spells, and reports that the last symptomatic episode was in July 2020 at which time he came to the emergency department. Prior EKGs in the system have shown both atrial fibrillation with rapid ventricular rate as well as sinus rhythm and sinus bradycardia. He does not report any chest pressure tightness or heaviness no lightheadedness presyncope or syncope. No bleeding diathesis no recent travel or trauma no fever chills or cough no orthopnea PND or lower extremity edema. Based on his age of 75, hypertension and diabetes his [id number] score is 3. He remains on high risk medication flecainide. The emergency department MD felt that patient may have had sinus beats in between. The duration that I spent with him I did not see any sinus rhythm, and EKG shows atrial fibrillation with rapid ventricular rate. Laboratory data reviewed, magnesium is on the low side. Patient says that he was on anticoagulation which was discontinued because of the very infrequent nature of his atrial fibrillation. He does report diagnosis of TIA dating back several years. Details not available. On physical examination he is alert oriented x3 speaking in full sentences blood pressure is in the 1 teens systolic heart rate is anywhere between 80s and 110s. Patient has received 75 mg of p.o. metoprolol and some IV diltiazem in the emergency department. Oxygen saturation is 98% on room air I appreciate no jugular venous distention no carotid bruit lungs are clear heart sounds are irregularly irregular without murmur rub or gallop abdomen is soft and nontender extremities show no edema distal pulses are palpable 2+ out of 4 plus neurologically he has no gross cranial nerve deficits and moves all extremities. Skin shows no petechia or rash. Musculoskeletal no major deformities identified. Laboratory data reviewed. Chest x-ray reviewed. Assessment: 1. Symptomatic atrial fibrillation with rapid ventricular rate. Patient reports that he does have a watch that documents his heart rate, frequently heart rates are in the 60s to 80s range, today he noticed that his heart rate was in the 140s. 2. Chads 2 vascular score of at least 3 3. Patient remains on high risk medication flecainide 4. History of obstructive sleep apnea. 5. Increased BMI 6. Hypomagnesemia. 7. Nuclear perfusion imaging study Sethiscan Myoview 2017-no ischemia preserved LV systolic function 8. Prior Holter monitors have shown supraventricular and ventricular premature beats. Recommendations: 1. Extensive discussion of atrial fibrillation and management strategies. 2. Patient is recommended to be on anticoagulation, he does not report any bleeding diathesis. 3. Options of anticoagulation discussed-warfarin versus newer agents. We have opted for Eliquis. 4. Rationale for anticoagulation and the risk of bleeding with anticoagulation also discussed. 5. Would prefer to avoid hospitalization if rate can be controlled, close outpatient follow-up and additional work-up and treatment per primary manager biologics Dr. Mccullough. 6. Increase metoprolol titrate to 50 mg p.o. 3 times daily, hold if heart rate is less than or equal to 60 7. Hold flecainide 8. Will need additional cardiac work-up and close follow-up, with primary cardiology 9. Patient is encouraged to make an appointment early next week for cardiology follow-up 10. IV magnesium sulfate 4 g today 11. Magnesium oxide 400 mg p.o. twice daily, may cut back to 400 mg daily if diarrhea occurs. 12. If symptoms recur, patient is encouraged to reseek emergent medical attention. You for the opportunity to be involved in patient's care, please do not hesitate to call if further questions arise, Sincerely, Bharati Salter MD [facility] Medical History Afib Anal fissure Diabetes GERD (gastroesophageal reflux disease) High blood cholesterol Hypertension Home Medications Centrum Silver 1 ea PO DAILY 07/24/13 [History Last Taken 12/14/16 07:00] aspirin 81 mg PO DAILY@0800 07/24/13 [History Last Taken 12/14/16 07:00] lisinopril 20 mg PO DAILY 07/24/13 [History Last Taken 12/14/16 07:00] metformin 1,000 mg PO BIDCM 07/24/13 [History Last Taken 12/14/16 07:00] metoprolol tartrate 25 mg PO BID 07/24/13 [History Last Taken 12/14/16 07:00] tamsulosin 0.4 mg PO BID 07/24/13 [History Last Taken 12/14/16 07:00] biotin 5 mg PO DAILY 12/14/16 [History Last Taken Unknown] flecainide 50 mg PO BID 12/14/16 [History Last Taken Unknown] pravastatin [Pravachol] 40 mg PO QHS 12/14/16 [History Last Taken Unknown] pantoprazole 40 mg PO DAILY #30 tablet 12/15/16 [Rx Last Taken Unknown] coenzyme Q10 200 mg PO DAILY 10/02/18 [History Last Taken Unknown] apixaban [Eliquis] 5 mg PO BID #74 tab 08/25/21 [Rx Last Taken Unknown] fluticasone furoate-vilanterol [Breo Ellipta] 1 inh INHALATION DAILY 08/25/21 [History Last Taken Unknown] levalbuterol tartrate [Xopenex HFA] 1 puff INHALATION Q6H 08/25/21 [History Last Taken Unknown] magnesium oxide 400 mg PO BID #60 tab 08/25/21 [Rx Last Taken Unknown] metoprolol tartrate 75 mg PO BID #60 tab 08/25/21 [Rx Last Taken Unknown] Allergy/AdvReac Type Severity Reaction Status Date / Time naproxen [From Naprosyn] AdvReac Nausea Verified 08/25/21 09:57 Surgical History Hx of tonsillectomy Social History Smoking Status: Never smoker Risk Stratification Risk Stratification Applicable: No Charges/Coding Visit Charges Office Visits / Consults: 37091 OP Consult L4 Objective Data Vital Signs: Vital Signs Temp Pulse Resp BP Pulse Ox 97.9 F 83 24 H 126/76 H 92 08/25/21 09:51 08/25/21 16:01 08/25/21 16:01 08/25/21 16:01 08/25/21 16:01 Oxygen Delivery Method Room Air Weight: 251 lb 8.759 oz Body Mass Index (BMI) 37.1 Lab / Micro Data Result Diagrams: 08/25/21 09:40 08/25/21 09:40 Labs: Laboratory Results - last 24 hr 08/25/21 09:40: WBC 7.4, RBC 5.07, Hgb 15.6, Hct 47.4, MCV 93.5, MCH 30.8, MCHC 32.9, RDW Std Deviation 45.0 H, RDW Coeff of Justice 13.2, Plt Count 251, MPV 10.6, Immature Gran % (Auto) 0.100, Neut % (Auto) 61.0, Lymph % (Auto) 21.3, [place] % (Auto) 10.8 H, Eos % (Auto) 5.7 H, Baso % (Auto) 1.1 H, Absolute Neuts (auto) 4.5, Absolute Lymphs (auto) 1.58, Nucleated RBC % 0 08/25/21 09:40: Sodium 141, Potassium 3.8, Chloride 105, Carbon Dioxide 31.0, Anion Gap 5, BUN 21 H, Creatinine 1.26, Estim Creat Clear Calc 52.21, Est GFR (MDRD) Af Amer 72, Est GFR (MDRD) Non-Af 60, BUN/Creatinine Ratio 16.7, Glucose 227 H, Calcium 9.6, Troponin I High Sens 17 08/25/21 09:40: B-Natriuretic Peptide 101.5 H 08/25/21 09:40: Magnesium 1.9 Cardiology Labs/Tests 08/25/21 09:40: WBC 7.4, RBC 5.07, Hgb 15.6, Hct 47.4, MCV 93.5, MCH 30.8, MCHC 32.9, Plt Count 251, MPV 10.6, Immature Gran % (Auto) 0.100, Neut % (Auto) 61.0, Lymph % (Auto) 21.3, [place] % (Auto) 10.8 H, Eos % (Auto) 5.7 H, Baso % (Auto) 1.1 H, Absolute Neuts (auto) 4.5, Nucleated RBC % 0 08/25/21 09:40: Sodium 141, Potassium 3.8, Chloride 105, Carbon Dioxide 31.0, Anion Gap 5, BUN 21 H, Creatinine 1.26, Est GFR (MDRD) Af Amer 72, Est GFR (MDRD) Non-Af 60, BUN/Creatinine Ratio 16.7, Glucose 227 H, Calcium 9.6 08/25/21 09:40: B-Natriuretic Peptide 101.5 H 08/25/21 09:40: Magnesium 1.9 Rhythm: EKG: ECHO: Stress Test: Cardiac Cath: PCI: CT Surgery: Holter monitor: EPS: PPM: CXR: Chest CT Scan: Radiography Diagnostic Testing: Radiology Impression Chest X-Ray 08/25/21 10:34 IMPRESSION: Nonacute portable x-ray examination of the chest. Electronically Signed: Julius Hutson MD (Brooks) at 10:44 EST , Service support ,
[2021-08-25] MEDS: APIXABAN 5 MG TABLET PO (16:39)
== END 2021-08-25 17:54 | disposition home or self-care (01) ==
PROVIDERS: Emergency Provider Student in an Organized Health Care Education/Training Program; PCP Internal Medicine
DX: I48.20 Chronic atrial fibrillation, unspecified (principal); K21.9 Gastro-esophageal reflux disease without esophagitis; E11.9 Type 2 diabetes mellitus without complications; I10 Essential (primary) hypertension; Z79.51 Long term (current) use of inhaled steroids; Z79.82 Long term (current) use of aspirin; Z79.84 Long term (current) use of oral hypoglycemic drugs; Z79.899 Other long term (current) drug therapy
CPT/HCPCS: 71045; 80048; 83735; 83880; 84484; 85025; 93005; 96374; 96376; 99285; A4216

== ENCOUNTER 2022-07-02 16:21 | Emergency (ER) | payer MEDICARE, OTHER, SELFPAY ==
[2022-07-02 16:22] VITALS: BP 165/90; PULSE 57; RESP 18; TEMP 36.4; O2SAT 94; BMI 35.4
--- NOTE | 2022-07-02 16:34 | EKG12_ITS ---
Test Reason : CP Blood Pressure : / mmHG Vent. Rate : 059 BPM Atrial Rate : 059 BPM P-R Int : 162 ms QRS Dur : 096 ms QT Int : 406 ms P-R-T Axes : 050 -04 010 degrees QTc Int : 401 ms Sinus bradycardia with occasional Premature ventricular complexes Low voltage QRS (Limb Leads) Confirmed by RIO RAMIREZ, CHATO ([id number]), supervising film or videotape editor ANTONIA CHEN ([id number]) on 07/04/2022 11:08:13 AM Referred By: SHAWN Confirmed By:CHATO PATE MD
--- NOTE | 2022-07-02 16:45 | RAD_ITS ---
STUDY: XR Chest 1 View 07/02/2022 4:50 PM REASON FOR EXAM: Male, 76 years old. CHEST PAIN chest pain COMPARISON: 08/25/2021 TECHNIQUE: XR Chest 1 View FINDINGS: There is no demonstrated pleural abnormality. Normal heart size. Normal mediastinum. Normal jr. Prominent appearing increased interstitial lung markings. Normal visualized pulmonary arteries. There is atherosclerotic calcification of the aortic arch with tortuosity. There are diffuse degenerative changes of the visualized thoracic spine. There is degenerative osteoarthritis of the bilateral shoulders. There is no demonstrated abnormality of the visualized soft tissue structures of the upper abdomen. RAD/Chest 1 View (Portable) IMPRESSION: There are no acute findings. Electronically Signed: Chano Juarez MD at 17:04 EST ,
[2022-07-02 16:46] LABS: Absolute Lymphocyte Count 1.61 X10^3/uL (0.83-4.51); Absolute Neutrophil Count 5.1 X10^3/uL (2.0-7.7); Basophil# 0.06 X10^3/uL; Basophil% 0.7 % (0-1); Eosinophils% 6.2 % (0-5); Hematocrit 43.8 % (40-54); Hemoglobin 14.1 g/dL (13.0-16.5); Lymphocyte # 1.61 X10^3/ul (0.83-4.51); Mean Corp Hgb Conc 32.2 g/dL (32-36); Mean Corpuscular Hgb 30.2 pg (27.0-32.0); Mean Corpuscular Volume 93.8 fL (80-94); Mean Platelet Vol. 10.5 fl (6.2-12.0); Monocyte# 0.78 X10^3/uL; Monocyte% 9.7 % (0-10); NRBC Flagged by Analyzer 0 % (0-5); Neutrophil # 5.08 X10^3/uL (2.7-7.7); Neutrophil % 63.2 % (47-70); Platelet Count 194 K/mm3 (150-450); RBC Distribution Width CV 13.4 % (11.6-14.6); RBC Distribution Width SD 45.6 fl (35.1-43.9); Red Blood Count 4.67 M/mm3 (4.6-6.2); White Blood Count 8.1 K/mm3 (4.4-11.0)
[2022-07-02 17:04] LABS: Anion Gap 4 (5-15); BUN 21 mg/dL (7-18); BUN/Creat Ratio 15.9 RATIO (10-20); Calcium,Total 9.5 mg/dL (8.5-10.1); Chloride 108 mmol/L (98-107); Creatinine, Serum 1.32 mg/dL (0.70-1.30); EST Glomerular Filtration Rate 56 mL/min (>60); Est Glom Filt Rate - Afr Amer 68 mL/min (>60); Glucose 131 mg/dL (74-106); Potassium 4.3 mmol/L (3.5-5.1); Sodium Level 142 mmol/L (136-145); Troponin-I HS (w/2H Reflex) 20 pg/mL (3.0-78.0)
--- NOTE | 2022-07-02 17:32 | EDS_ITS ---
HPI History of Present Illness Chief Complaint: Chest Pain Narrative Narrative: Patient presenting with palpitations for the last couple of days. He states twice a day. He wears an apple watch and said his heart rate is only been in the 50s. He does not have any chest pain. He states he used to be on Eliquis but has been off this since August. Initially he was started on this in the hospital when he was out of rhythm. He followed up with Dr. Jiménez who recommended that he discontinue this. He states Dr. Jiménez told him that he would know if he was in A. fib because he has been it 4 times. If he has concern he is in A. fib he is to start his Eliquis again and make an ap pointment. Patient has not started his Eliquis because his heart rate has not been fast and he does not feel he is in atrial fibrillation. He is not describing any lightheaded or dizziness. Pain is not having chest pain. Does not feel short of breath. Of note patient COVID-positive on June 26. He states he is basically recovered from this. He was out walking the dog today without any difficulty. Patient states the biggest symptom he had was a cough. Does not describe any fever or chills. He does not have any nausea or vomiting. He states he feels otherwise well. [facility] Medical History Afib Anal fissure Diabetes GERD (gastroesophageal reflux disease) High blood cholesterol Hypertension Home Medications aspirin 81 mg chewable tablet 81 mg PO DAILY@0800 07/24/13 [History Last Taken 12/14/16 07:00] lisinopril 20 mg tablet 20 mg PO DAILY 07/24/13 [History Last Taken 12/14/16 07:00] metformin 1,000 mg tablet 1,000 mg PO BIDCM 07/24/13 [History Last Taken 12/14/16 07:00] metoprolol tartrate 50 mg tablet 25 mg PO BID 07/24/13 [History Last Taken 12/14/16 07:00] eewycizy-brx-sjdqc acid 0.4 mg-lycopene 300 mcg-lutein 250 mcg tablet (Centrum Silver) 1 ea PO DAILY 07/24/13 [History Last Taken 12/14/16 07:00] tamsulosin 0.4 mg capsule 0.4 mg PO BID 07/24/13 [History Last Taken 12/14/16 07:00] biotin 5 mg capsule 5 mg PO DAILY 12/14/16 [History Last Taken Unknown] flecainide 100 mg tablet 50 mg PO BID 12/14/16 [History Last Taken Unknown] pravastatin 20 mg tablet (Pravachol) 40 mg PO QHS 12/14/16 [History Last Taken Unknown] pantoprazole 40 mg tablet,delayed release 40 mg PO DAILY ##30 12/15/16 [Rx Last Taken Unknown] coenzyme Q10 50 mg chewable tablet 200 mg PO DAILY supplement 10/02/18 [History Last Taken Unknown] apixaban 5 mg tablet (Eliquis) 5 mg PO BID #74 tabs 08/25/21 [Rx Last Taken Unknown] fluticasone furoate 100 mcg-vilanterol 25 mcg/dose inhalation powder (Breo Ellipta) 1 inh inhalation DAILY 08/25/21 [History Last Taken Unknown] levalbuterol tartrate 45 mcg/actuation aerosol inhaler (Xopenex HFA) 1 puff inhalation Q6H 08/25/21 [History Last Taken Unknown] magnesium oxide 400 mg PO BID #60 tabs 08/25/21 [Rx Last Taken Unknown] metoprolol tartrate 75 mg tablet 75 mg PO BID #60 tabs 08/25/21 [Rx Last Taken Unknown] Allergy/AdvReac Type Severity Reaction Status Date / Time naproxen [From Naprosyn] AdvReac Nausea Verified 07/02/22 16:24 Surgical History Hx of tonsillectomy Social History Smoking Status: Never smoker ROS ROS ED Constitutional Constitutional ED: Denies chills or fever(s) Eyes Eyes: Denies change in vision or diplopia ENT ENT ED: Denies rhinorrhea or sore throat Cardiovascular Cardiovascular: Reports palpitations Respiratory/Chest Respiratory/Chest: Denies cough or dyspnea Gastrointestinal Gastrointestinal: Denies abdominal pain or constipation Genitourinary Genitourinary ED: Denies dysuria or hematuria Musculoskeletal Musculoskeletal: Denies arthralgias or back pain Integumentary Denies abscess or Abrasions Neurologic Neurologic: Denies headache(s) or paresthesias Psychiatric Psychiatric: Denies anxiety or depression EXAM Physical Exam Const Vital Signs: 07/02/22 16:22 07/02/22 16:28 07/02/22 16:42 Temperature 97.6 F L Temperature Source Temporal Pulse Rate 57 L Respiratory Rate 18 Respiratory Effort Normal Non-Labored Blood Pressure 165/90 H Blood Pressure Mean 115 Pulse Ox 94 Oxygen Delivery Method Room Air Room Air Positive well nourished General Appearance ED: NAD HEENT Reports moist mucous membranes Negative for trauma or tenderness Eyes Negative for PERRL or EOMs intact bilaterally Neck no lymphadenopathy and supple Chest Wall inspection of chest normal and palpation of chest normal Resp normal respiratory effort Cardio regular rate and regular rhythm GI normal to inspection, nondistended, normoactive bowel sounds Back/Spine no CVA tenderness Neuro oriented x3 and CN's II-XII intact bilaterally Motor Exam: strength 5/5 throughout Psych mental status grossly normal Skin no rashes or lesions noted General Skin Exam: elasticity normal MDM MDM MDM Narrative Medical decision making narrative: 76-year-old male presenting with palpitations. He is convinced he is has not been in A. fib as his heart rate is only been in the 50s. He has not restarted his Eliquis because of this. Patient denies any sort of chest pain or shortness of breath. Patient recovered from COVID was diagnosed on June 26. He states he feels well. He is eating and drinking normally. Is making normal urine and stool. He is able to go out and walk the dog today. He notes these palpitations come twice a day but his heart rate is never over 50s. CBC, BMP unremarkable. High-sensitivity troponin is 20 in comparison to his previous troponin of 17. His EKG on my interpretation is sinus bradycardia with a ventricular rate of 59 bpm without sign of ischemic change however there are PVCs noted. Patient counseled on findings. I recommend he speak with Dr. Jiménez about the need for anticoagulation as he does have significant risk factors with his atrial fibrillation and I think he would benefit Eliquis treatment. 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 Impression: 1. History of A. fib 2. Palpitations 3. History of COVID-19 Lab Data Labs: Laboratory Results - last 24 hr 07/02/22 07/02/22 16:30 16:30 WBC 8.1 RBC 4.67 Hgb 14.1 Hct 43.8 MCV 93.8 MCH 30.2 MCHC 32.2 RDW Std Deviation 45.6 H RDW Coeff of Justice 13.4 Plt Count 194 MPV 10.5 Immature Gran % (Auto) 0.200 Neut % (Auto) 63.2 Lymph % (Auto) 20.0 [place] % (Auto) 9.7 Eos % (Auto) 6.2 H Baso % (Auto) 0.7 Absolute Neuts (auto) 5.1 Absolute Lymphs (auto) 1.61 Nucleated RBC % 0 Sodium 142 Potassium 4.3 Chloride 108 H Carbon Dioxide 30.0 Anion Gap 4 L BUN 21 H Creatinine 1.32 H Estim Creat Clear Calc 49.10 Est GFR (MDRD) Af Amer 68 Est GFR (MDRD) Non-Af 56 L BUN/Creatinine Ratio 15.9 Glucose 131 H Calcium 9.5 Troponin I High Sens 20 Radiography Diagnostic Testing: Clinical Impression(s) from Imaging Studies Chest X-Ray 07/02/22 16:45 IMPRESSION: There are no acute findings. Electronically Signed: Chano Juarez MD at 17:04 EST Reading Location ID and State: [facility] / [place] , Service support , Discharge Plan Triage Chief Complaint: Chest Pain ED Provider: Jeff Jiménez Dx/Rx/DC Orders Instructions: ED Palpitations Prescriptions: No Action lisinopril 20 MG tablet 20 mg PO DAILY tamsulosin 0.4 MG capsule 0.4 mg PO BID metformin 1,000 MG tablet 1,000 mg PO BIDCM metoprolol tartrate 50 MG tablet 25 mg PO BID aspirin 81 MG tablet,chewable 81 mg PO DAILY@0800 Centrum Silver 1 EACH tablet 1 ea PO DAILY biotin 5 MG capsule 5 mg PO DAILY flecainide 100 MG tablet 50 mg PO BID pravastatin [Pravachol] 20 MG tablet 40 mg PO QHS pantoprazole 40 MG tablet 40 mg PO DAILY Qty: 30 0RF coenzyme Q10 50 MG tablet,chewable 200 mg PO DAILY levalbuterol tartrate [Xopenex HFA] 45 mcg/actuation Hfa Aerosol Inhaler 1 puff INHALATION Q6H Breo Ellipta 100-25 mcg/dose Blister With Device 1 inh INHALATION DAILY metoprolol tartrate 75 mg tablet 75 mg PO BID Qty: 60 0RF Eliquis 5 mg tablet 5 mg PO BID Qty: 74 0RF Rx Instructions: 10 mg twice a day for the first week. Then 5 mg twice a day. magnesium oxide 400 mg magnesium tablet 400 mg PO BID Qty: 60 0RF Primary Care Provider: Lisa Cardenas Referrals: Lisa Cardenas MD [Primary Care Provider] - Disposition Disposition: Home, Self Care
[2022-07-02 17:46] VITALS: BP 174/71; PULSE 63; RESP 16; O2SAT 96
[2022-07-02 18:44] LABS: Reflex Troponin-HS? (from REC) Y
== END 2022-07-02 17:47 | disposition home or self-care (01) ==
PROVIDERS: Emergency Provider Student in an Organized Health Care Education/Training Program; PCP Internal Medicine; Visit Provider Student in an Organized Health Care Education/Training Program
DX: R00.2 Palpitations (principal); Z86.16 Personal history of COVID-19
CPT/HCPCS: 71045; 80048; 84484; 85025; 93005; 99283; A4216

== ENCOUNTER 2022-07-08 14:28 | Emergency (ER) | payer MEDICARE, OTHER, SELFPAY ==
[2022-07-08] VITALS (11 sets, daily range): BP systolic 119–141; BP diastolic 81–101; PULSE 62–158; RESP 16–33; TEMP 36.3–36.6; O2SAT 91–95; BMI 35.1
--- NOTE | 2022-07-08 14:51 | EKG12_ITS ---
Test Reason : PALP Blood Pressure : / mmHG Vent. Rate : 138 BPM Atrial Rate : 000 BPM P-R Int : 000 ms QRS Dur : 098 ms QT Int : 274 ms P-R-T Axes : 000 010 -05 degrees QTc Int : 415 ms Atrial fibrillation with rapid ventricular response with premature ventricular or aberrantly conducte d complexes ST & T wave abnormality, consider inferior ischemia Abnormal ECG Confirmed by AMALIA RAMIREZ, YAMILE ([id number]), order editor ANTONIA CHEN ([id number]) on 07/10/2022 11:23:59 AM Referred By: YOU Confirmed By:YAMILE HOLLAND MD
--- NOTE | 2022-07-08 14:56 | EX.ED.DYSGE1 ---
HPI <MODESTO Denson - Last Filed: 07/08/22 20:15> History of Present Illness Chief Complaint: Palpitations Narrative Narrative: 76-year-old male with history of asthma, atrial fibrillation currently placed back on Eliquis 4 days ago, GERD presents to the emergency department with feeling of being in atrial fibrillation. Patient was resting at a birthday libertarian, when he developed palpitations roughly 45 minutes prior to arrival. Patient states that he can feel when he is in A. fib. He checks his watch that gives him a tracing, he was in normal sinus rhythm usually at a rate of 60-70 this morning. Patient was really placed back on his Eliquis and started Saturday evening with a total of 4 full days. Patient denies any chest pain or shortness of breath. Denies any lower extremity swelling. Patient states that he can just feel himself when he goes into atrial fibrillation. [facility] <MODESTO eDnson - Last Filed: 07/08/22 20:15> [facility] Medical History Afib Anal fissure Diabetes GERD (gastroesophageal reflux disease) High blood cholesterol Hypertension Home Medications aspirin 81 mg chewable tablet 81 mg PO DAILY@0800 07/24/13 [History Last Taken 12/14/16 07:00] lisinopril 20 mg tablet 20 mg PO DAILY 07/24/13 [History Last Taken 12/14/16 07:00] metformin 1,000 mg tablet 1,000 mg PO BIDCM 07/24/13 [History Last Taken 12/14/16 07:00] metoprolol tartrate 50 mg tablet 25 mg PO BID 07/24/13 [History Last Taken 12/14/16 07:00] vkrvkfne-vhx-lgcwc acid 0.4 mg-lycopene 300 mcg-lutein 250 mcg tablet (Centrum Silver) 1 ea PO DAILY 07/24/13 [History Last Taken 12/14/16 07:00] tamsulosin 0.4 mg capsule 0.4 mg PO BID 07/24/13 [History Last Taken 12/14/16 07:00] biotin 5 mg capsule 5 mg PO DAILY 12/14/16 [History Last Taken Unknown] flecainide 100 mg tablet 50 mg PO BID 12/14/16 [History Last Taken Unknown] pravastatin 20 mg tablet (Pravachol) 40 mg PO QHS 12/14/16 [History Last Taken Unknown] pantoprazole 40 mg tablet,delayed release 40 mg PO DAILY ##30 12/15/16 [Rx Last Taken Unknown] coenzyme Q10 50 mg chewable tablet 200 mg PO DAILY supplement 10/02/18 [History Last Taken Unknown] levalbuterol tartrate 45 mcg/actuation aerosol inhaler (Xopenex HFA) 1 puff inhalation Q6H PRN Wheezing 08/25/21 [History Last Taken Unknown] amlodipine 5 mg tablet 5 mg PO DAILY 07/08/22 [History Last Taken Unknown] apixaban 5 mg tablet (Eliquis) 10 mg PO BID 07/08/22 [History Last Taken Unknown] fluticasone furoate 200 mcg-vilanterol 25 mcg/dose inhalation powder (Breo Ellipta) 1 inh inhalation DAILY 07/08/22 [History Last Taken Unknown] magnesium oxide 400 mg PO DAILY 07/08/22 [History Last Taken Unknown] Allergy/AdvReac Type Severity Reaction Status Date / Time naproxen [From Naprosyn] AdvReac Nausea Verified 07/08/22 14:29 Surgical History Hx of tonsillectomy Social History Smoking Status: Never smoker ROS <MODESTO Denson - Last Filed: 07/08/22 20:15> ROS ED ROS Narrative Constitutional: Negative for fever, chills, weight loss, weakness Eyes: Negative for vision loss, vision change, double vision ENT: Negative for any sore throat, ear pain, congestion Cardiovascular: Negative for any chest pain, tightness. Positive for palpitations Respiratory: Negative for any cough, sputum production, hemoptysis, dyspnea, dyspnea on exertion, orthopnea Gastrointestinal: Negative for any abdominal pain, nausea, vomiting, diarrhea, constipation, blood in stool, blood in vomit : Negative for any urinary frequency, dysuria, retention, blood in urine Muscle skeletal: Negative for any muscle joint pain, stiffness, myalgias, arthralgias, neck pain, back pain Neurological: Negative for any headache, syncope, numbness or tingling, dizziness Skin: Negative for any rashes, lumps, itching, abrasions, lacerations Psychiatric: Negative for any depression, anxiety, stress, suicidal ideation, homicidal ideation Hematologic: Negative for any easy bruising, excessive bruising, easy bleeding Allergies: Negative for any eczema, hives, rash EXAM <Asim WilkinsonMODESTO tam - Last Filed: 07/08/22 20:15> Physical Exam Narrative Exam Narrative: Vital signs reviewed. Patient appears to be in atrial fibrillation, rate of 140. Patient appears to be in no respiratory distress, vital signs remained are stable. HEET: Head normocephalic atraumatic, TMs clear bilaterally. Posterior pharynx is clear, moist mucous membranes. Nares clear bilaterally. Neck: Supple with no lymphadenopathy or tenderness. No signs of meningismus, negative jolt sign. Cardiac: Irregular rate no murmurs gallops or rubs, equal peripheral pulses bilaterally. Respiratory: Lungs clear to auscultation bilaterally. No chest tenderness. Abdomen: Soft, nontender, nondistended. No abdominal bruit or pulsatile masses. No hepatosplenomegaly Extremities: No peripheral edema, no signs of gross trauma or deformity. Active full range of motion of all extremities. Neuro: Cranial nerves II through XII intact, no focal neurological deficits. Skin: Clean dry and intact with no rash, purpura, petechiae, vesicles or pustules. Backs/flank: No CVA tenderness, no midline spinal tenderness, no deformity. Psych: Normal mood and affect. No SI, HI or acute psychosis. Const Vital Signs: 07/08/22 16:30 07/08/22 19:12 07/08/22 19:37 Temperature Pulse Rate 117 H 66 Pulse Rate [1 (Initial Baseline)] 158 H Pulse Rate [2] 152 H Pulse Rate [3] 65 Respiratory Rate 22 H Respiratory Rate [1 (Initial Baseline)] 33 H Respiratory Rate [2] 24 H Respiratory Rate [3] 18 Blood Pressure 119/81 H 132/88 H Blood Pressure [1 (Initial Baseline)] 131/91 H Blood Pressure [2] 141/95 H Blood Pressure [3] 120/82 H Blood Pressure Mean 93 102 Pulse Ox 93 Oxygen Delivery Method Nasal Cannula Oxygen Delivery Method [1 (Initial Baseline)] Nasal Cannula Oxygen Delivery Method [2] Nasal Cannula Oxygen Delivery Method [3] Nasal Cannula Oxygen Flow Rate (L/min) 2 Oxygen Flow Rate (L/min) [1 (Initial Baseline)] 2 Oxygen Flow Rate (L/min) [2] 2 Oxygen Flow Rate (L/min) [3] 2 07/08/22 19:30 07/08/22 19:35 07/08/22 19:59 Temperature Pulse Rate Pulse Rate [1 (Initial Baseline)] Pulse Rate [2] Pulse Rate [3] Respiratory Rate Respiratory Rate [1 (Initial Baseline)] Respiratory Rate [2] Respiratory Rate [3] Blood Pressure Blood Pressure [1 (Initial Baseline)] Blood Pressure [2] Blood Pressure [3] Blood Pressure Mean Pulse Ox Oxygen Delivery Method Nasal Cannula Nasal Cannula Room Air Oxygen Delivery Method [1 (Initial Baseline)] Oxygen Delivery Method [2] Oxygen Delivery Method [3] Oxygen Flow Rate (L/min) 2 2 Oxygen Flow Rate (L/min) [1 (Initial Baseline)] Oxygen Flow Rate (L/min) [2] Oxygen Flow Rate (L/min) [3] 07/08/22 19:30 07/08/22 19:35 07/08/22 19:40 Temperature Pulse Rate 64 65 62 Pulse Rate [1 (Initial Baseline)] Pulse Rate [2] Pulse Rate [3] Respiratory Rate 21 H 23 H 18 Respiratory Rate [1 (Initial Baseline)] Respiratory Rate [2] Respiratory Rate [3] Blood Pressure 120/82 H 132/88 H 131/82 H Blood Pressure [1 (Initial Baseline)] Blood Pressure [2] Blood Pressure [3] Blood Pressure Mean Pulse Ox 92 93 93 Oxygen Delivery Method Nasal Cannula Nasal Cannula Oxygen Delivery Method [1 (Initial Baseline)] Oxygen Delivery Method [2] Oxygen Delivery Method [3] Oxygen Flow Rate (L/min) 2 2 Oxygen Flow Rate (L/min) [1 (Initial Baseline)] Oxygen Flow Rate (L/min) [2] Oxygen Flow Rate (L/min) [3] 07/08/22 19:15 07/08/22 20:26 Temperature 97.8 F Pulse Rate 154 H 65 Pulse Rate [1 (Initial Baseline)] Pulse Rate [2] Pulse Rate [3] Respiratory Rate 29 H 16 Respiratory Rate [1 (Initial Baseline)] Respiratory Rate [2] Respiratory Rate [3] Blood Pressure 135/84 H 127/99 H Blood Pressure [1 (Initial Baseline)] Blood Pressure [2] Blood Pressure [3] Blood Pressure Mean Pulse Ox 95 93 Oxygen Delivery Method Nasal Cannula Oxygen Delivery Method [1 (Initial Baseline)] Oxygen Delivery Method [2] Oxygen Delivery Method [3] Oxygen Flow Rate (L/min) 2 Oxygen Flow Rate (L/min) [1 (Initial Baseline)] Oxygen Flow Rate (L/min) [2] Oxygen Flow Rate (L/min) [3] <Dr. Darvin Meza MD - Last Filed: 07/09/22 16:09> Physical Exam Const Vital Signs: 07/08/22 16:30 07/08/22 19:12 07/08/22 19:37 Temperature Pulse Rate 117 H 66 Pulse Rate [1 (Initial Baseline)] 158 H Pulse Rate [2] 152 H Pulse Rate [3] 65 Respiratory Rate 22 H Respiratory Rate [1 (Initial Baseline)] 33 H Respiratory Rate [2] 24 H Respiratory Rate [3] 18 Blood Pressure 119/81 H 132/88 H Blood Pressure [1 (Initial Baseline)] 131/91 H Blood Pressure [2] 141/95 H Blood Pressure [3] 120/82 H Blood Pressure Mean 93 102 Pulse Ox 93 Oxygen Delivery Method Nasal Cannula Oxygen Delivery Method [1 (Initial Baseline)] Nasal Cannula Oxygen Delivery Method [2] Nasal Cannula Oxygen Delivery Method [3] Nasal Cannula Oxygen Flow Rate (L/min) 2 Oxygen Flow Rate (L/min) [1 (Initial Baseline)] 2 Oxygen Flow Rate (L/min) [2] 2 Oxygen Flow Rate (L/min) [3] 2 07/08/22 19:30 07/08/22 19:35 07/08/22 19:59 Temperature Pulse Rate Pulse Rate [1 (Initial Baseline)] Pulse Rate [2] Pulse Rate [3] Respiratory Rate Respiratory Rate [1 (Initial Baseline)] Respiratory Rate [2] Respiratory Rate [3] Blood Pressure Blood Pressure [1 (Initial Baseline)] Blood Pressure [2] Blood Pressure [3] Blood Pressure Mean Pulse Ox Oxygen Delivery Method Nasal Cannula Nasal Cannula Room Air Oxygen Delivery Method [1 (Initial Baseline)] Oxygen Delivery Method [2] Oxygen Delivery Method [3] Oxygen Flow Rate (L/min) 2 2 Oxygen Flow Rate (L/min) [1 (Initial Baseline)] Oxygen Flow Rate (L/min) [2] Oxygen Flow Rate (L/min) [3] 07/08/22 19:30 07/08/22 19:35 07/08/22 19:40 Temperature Pulse Rate 64 65 62 Pulse Rate [1 (Initial Baseline)] Pulse Rate [2] Pulse Rate [3] Respiratory Rate 21 H 23 H 18 Respiratory Rate [1 (Initial Baseline)] Respiratory Rate [2] Respiratory Rate [3] Blood Pressure 120/82 H 132/88 H 131/82 H Blood Pressure [1 (Initial Baseline)] Blood Pressure [2] Blood Pressure [3] Blood Pressure Mean Pulse Ox 92 93 93 Oxygen Delivery Method Nasal Cannula Nasal Cannula Oxygen Delivery Method [1 (Initial Baseline)] Oxygen Delivery Method [2] Oxygen Delivery Method [3] Oxygen Flow Rate (L/min) 2 2 Oxygen Flow Rate (L/min) [1 (Initial Baseline)] Oxygen Flow Rate (L/min) [2] Oxygen Flow Rate (L/min) [3] 07/08/22 19:15 07/08/22 20:26 Temperature 97.8 F Pulse Rate 154 H 65 Pulse Rate [1 (Initial Baseline)] Pulse Rate [2] Pulse Rate [3] Respiratory Rate 29 H 16 Respiratory Rate [1 (Initial Baseline)] Respiratory Rate [2] Respiratory Rate [3] Blood Pressure 135/84 H 127/99 H Blood Pressure [1 (Initial Baseline)] Blood Pressure [2] Blood Pressure [3] Blood Pressure Mean Pulse Ox 95 93 Oxygen Delivery Method Nasal Cannula Oxygen Delivery Method [1 (Initial Baseline)] Oxygen Delivery Method [2] Oxygen Delivery Method [3] Oxygen Flow Rate (L/min) 2 Oxygen Flow Rate (L/min) [1 (Initial Baseline)] Oxygen Flow Rate (L/min) [2] Oxygen Flow Rate (L/min) [3] <Dr. Tommy Caldwell, DO - Last Filed: 07/08/22 20:01> Physical Exam Const Vital Signs: 07/08/22 16:30 07/08/22 19:12 07/08/22 19:37 Temperature Pulse Rate 117 H 66 Pulse Rate [1 (Initial Baseline)] 158 H Pulse Rate [2] 152 H Pulse Rate [3] 65 Respiratory Rate 22 H Respiratory Rate [1 (Initial Baseline)] 33 H Respiratory Rate [2] 24 H Respiratory Rate [3] 18 Blood Pressure 119/81 H 132/88 H Blood Pressure [1 (Initial Baseline)] 131/91 H Blood Pressure [2] 141/95 H Blood Pressure [3] 120/82 H Blood Pressure Mean 93 102 Pulse Ox 93 Oxygen Delivery Method Nasal Cannula Oxygen Delivery Method [1 (Initial Baseline)] Nasal Cannula Oxygen Delivery Method [2] Nasal Cannula Oxygen Delivery Method [3] Nasal Cannula Oxygen Flow Rate (L/min) 2 Oxygen Flow Rate (L/min) [1 (Initial Baseline)] 2 Oxygen Flow Rate (L/min) [2] 2 Oxygen Flow Rate (L/min) [3] 2 07/08/22 19:30 07/08/22 19:35 07/08/22 19:59 Temperature Pulse Rate Pulse Rate [1 (Initial Baseline)] Pulse Rate [2] Pulse Rate [3] Respiratory Rate Respiratory Rate [1 (Initial Baseline)] Respiratory Rate [2] Respiratory Rate [3] Blood Pressure Blood Pressure [1 (Initial Baseline)] Blood Pressure [2] Blood Pressure [3] Blood Pressure Mean Pulse Ox Oxygen Delivery Method Nasal Cannula Nasal Cannula Room Air Oxygen Delivery Method [1 (Initial Baseline)] Oxygen Delivery Method [2] Oxygen Delivery Method [3] Oxygen Flow Rate (L/min) 2 2 Oxygen Flow Rate (L/min) [1 (Initial Baseline)] Oxygen Flow Rate (L/min) [2] Oxygen Flow Rate (L/min) [3] 07/08/22 19:30 07/08/22 19:35 07/08/22 19:40 Temperature Pulse Rate 64 65 62 Pulse Rate [1 (Initial Baseline)] Pulse Rate [2] Pulse Rate [3] Respiratory Rate 21 H 23 H 18 Respiratory Rate [1 (Initial Baseline)] Respiratory Rate [2] Respiratory Rate [3] Blood Pressure 120/82 H 132/88 H 131/82 H Blood Pressure [1 (Initial Baseline)] Blood Pressure [2] Blood Pressure [3] Blood Pressure Mean Pulse Ox 92 93 93 Oxygen Delivery Method Nasal Cannula Nasal Cannula Oxygen Delivery Method [1 (Initial Baseline)] Oxygen Delivery Method [2] Oxygen Delivery Method [3] Oxygen Flow Rate (L/min) 2 2 Oxygen Flow Rate (L/min) [1 (Initial Baseline)] Oxygen Flow Rate (L/min) [2] Oxygen Flow Rate (L/min) [3] 07/08/22 19:15 07/08/22 20:26 Temperature 97.8 F Pulse Rate 154 H 65 Pulse Rate [1 (Initial Baseline)] Pulse Rate [2] Pulse Rate [3] Respiratory Rate 29 H 16 Respiratory Rate [1 (Initial Baseline)] Respiratory Rate [2] Respiratory Rate [3] Blood Pressure 135/84 H 127/99 H Blood Pressure [1 (Initial Baseline)] Blood Pressure [2] Blood Pressure [3] Blood Pressure Mean Pulse Ox 95 93 Oxygen Delivery Method Nasal Cannula Oxygen Delivery Method [1 (Initial Baseline)] Oxygen Delivery Method [2] Oxygen Delivery Method [3] Oxygen Flow Rate (L/min) 2 Oxygen Flow Rate (L/min) [1 (Initial Baseline)] Oxygen Flow Rate (L/min) [2] Oxygen Flow Rate (L/min) [3] KIAN <MODESTO Denson - Last Filed: 07/08/22 20:15> [facility] Lab Data Labs: Laboratory Results - last 24 hr 07/08/22 07/08/22 16:04 17:09 Troponin I High Sens 23 B-Natriuretic Peptide 94.1 Radiography Diagnostic Testing: Clinical Impression(s) from Imaging Studies Chest X-Ray 07/08/22 15:45 IMPRESSION: No acute cardiopulmonary abnormality. Electronically Signed: Campos Blankenship MD at 15:54 EST , EKG Atrial fibrillation with rapid ventricular response: Attestation: I personally reviewed and interpreted this EKG as follows: Comments: Atrial fibrillation with rapid ventricular response, rate 138 bpm, QRS duration 98 ms, no acute ST elevation, no acute infarct noted. Treatment and Re-Evaluation Narrative: Patient arrives in no distress, patient presents the [place] apartment palpitations, concern for atrial fibrillation. Patient EKG does shows atrial fibrillation with rapid ventricular response, the rate was 139 at that time. Patient is bouncing anywhere between 1 20-1 40. Patient also had a pulse oxygenation around 90.Patient did have a cardiac work-up, patient is currently on Eliquis. He has been taking full 4 days of Eliquis, he is currently on the 10 mg twice a day. Because he did restart. Patient's laboratory values show normal CBC, patient had a creatinine of 1.34, this is chronic. Patient's initial troponin was 18, repeat was 23, this is negative. Patient was given 20 mg of Cardizem, this did not greatly improve his heart rate, he still was around 130. Patient's chest x-ray interpreted by ER physician shows no acute cardiopulmonary abnormality. I did speak with the patient's marriage counselor minister who recommended the patient receive Cardizem and will follow-up in the office. Due to the Cardizem not working, the patient being anticoagulated, the patient was cardioverted. Patient was cardioverted with procedural sedation, he was given 80 mg of IV propofol. Patient was shocked x1 with 200 J, patient responded well going immediately back to sinus rhythm. Patient vital signs remained stable, heart rate 65, patient's pulse ox today shows 94% room air. Patient feels much better, he is stable for discharge and will follow up with cardiology. Patient is happy with plan of care and given return precautions. <Dr. Darvin Meza MD - Last Filed: 07/09/22 16:09> [facility] Narrative Medical decision making narrative: Seen and evaluated independently and in conjunction with ICHTHYOLOGIST. Agree with notes above unless documented otherwise. Patient has an apple watch, he has been feeling PACs off and on for the past week so has been using his watch to do a 1-lead EKG/rhythm strip every day, which he did this morning showing a sinus rhythm, and subsequently flipped into A. fib and was symptomatic with it, which he usually is; the last time he did this was almost a year ago. He was off of anticoagulation due to high fall risk but restarted it incidentally 4 days ago. Has had no bleeding. No chest discomfort, near syncope, dyspnea, or any other symptoms or recent illness. On exam, heart is irregularly irregular and tachycardic, lungs are clear, he is well-appearing in no distress with no edema. Work-up negative. Patient ate a meal 3-4 hours ago, not appropriate for sedating for cardioversion right now even though otherwise, he is appropriate for cardioversion in general. Given this, we will give him Cardizem and monitor and further, and consider cardioversion if he does not convert or rate control after early 6 hours post p.o. Lab Data Attestation: I reviewed the patient's lab results. Labs: Laboratory Results - last 24 hr 07/08/22 07/08/22 16:04 17:09 Troponin I High Sens 23 B-Natriuretic Peptide 94.1 Radiography Diagnostic Testing: Clinical Impression(s) from Imaging Studies Chest X-Ray 07/08/22 15:45 IMPRESSION: No acute cardiopulmonary abnormality. Electronically Signed: Campos Blankenship MD at 15:54 EST , <Dr. Tommy Caldwell, DO - Last Filed: 07/08/22 20:01> MDM MDM Narrative Medical decision making narrative: Seen and evaluated independently and in conjunction with ICHTHYOLOGIST. Agree with notes above unless documented otherwise. Patient has an apple watch, he has been feeling PACs off and on for the past week so has been using his watch to do a 1-lead EKG/rhythm strip every day, which he did this morning showing a sinus rhythm, and subsequently flipped into A. fib and was symptomatic with it, which he usually is; the last time he did this was almost a year ago. He was off of anticoagulation due to high fall risk but restarted it incidentally 4 days ago. Has had no bleeding. No chest discomfort, near syncope, dyspnea, or any other symptoms or recent illness. On exam, heart is irregularly irregular and tachycardic, lungs are clear, he is well-appearing in no distress with no edema. Work-up negative. Patient ate a meal 3-4 hours ago, not appropriate for sedating for cardioversion right now even though otherwise, he is appropriate for cardioversion in general. Given this, we will give him Cardizem and monitor and further, and consider cardioversion if he does not convert or rate control after early 6 hours post p.o. Care of the patient was turned over to me. Patient remained in atrial fibrillation with rapid ventricular response despite Cardizem. I explained with the patient the procedure for cardioversion. Patient was informed he would be sedated for this. Patient was advised of the procedure. Patient was given the opportunity ask questions. Patient had no further questions. Patient signed informed consent. Patient was placed on continuous cardiac and pulse oximeter monitors. Patient was given a total dose of 80 mg of propofol. Patient was cardioverted with 200 J of synchronized cardioversion. Patient remained in a normal sinus rhythm after the procedure. Patient did have mild transient hypoxia into the mid 80s. This improved with oxygenation. Patient states he does have a history of sleep apnea. Patient felt better after the procedure. Patient was instructed to follow-up with his primary care physician and marriage counselor minister in 3 to 5 days. Patient understood and was agreeable with the plan. All questions were answered. Lab Data Labs: Laboratory Results - last 24 hr 07/08/22 07/08/22 16:04 17:09 Troponin I High Sens 23 B-Natriuretic Peptide 94.1 Radiography Diagnostic Testing: Clinical Impression(s) from Imaging Studies Chest X-Ray 07/08/22 15:45 IMPRESSION: No acute cardiopulmonary abnormality. Electronically Signed: Campos Blankenship MD at 15:54 EST , Discharge Plan Triage Chief Complaint: Palpitations ED Midlevel Provider: Asim Hendricks ED Provider: Darvin Meza Dx/Rx/DC Orders Clinical Impression: Atrial fibrillation with RVR, Anticoagulated Instructions: AFib Dc, AFib Prescriptions: No Action lisinopril 20 MG tablet 20 mg PO DAILY tamsulosin 0.4 MG capsule 0.4 mg PO BID metformin 1,000 MG tablet 1,000 mg PO BIDCM metoprolol tartrate 50 MG tablet 25 mg PO BID aspirin 81 MG tablet,chewable 81 mg PO DAILY@0800 Centrum Silver 1 EACH tablet 1 ea PO DAILY biotin 5 MG capsule 5 mg PO DAILY flecainide 100 MG tablet 50 mg PO BID pravastatin [Pravachol] 20 MG tablet 40 mg PO QHS pantoprazole 40 MG tablet 40 mg PO DAILY Qty: 30 0RF coenzyme Q10 50 MG tablet,chewable 200 mg PO DAILY levalbuterol tartrate [Xopenex HFA] 45 mcg/actuation Hfa Aerosol Inhaler 1 puff INHALATION Q6H PRN (Reason: Wheezing) amlodipine 5 mg tablet 5 mg PO DAILY fluticasone furoate-vilanterol [Breo Ellipta] 200-25 mcg/dose blister with device 1 inh INHALATION DAILY Label Comments: INHALE 1 INHALATION INSTRUCTED ONCE DAILY. RINSE MOUTH OUT AFTER USE. Eliquis 5 mg tablet 10 mg PO BID Rx Instructions: 10 mg twice a day for the first week. Then 5 mg twice a day. magnesium oxide 400 mg magnesium tablet 400 mg PO DAILY Primary Care Provider: Lisa Cardenas Referrals: Lisa Cardenas MD [Primary Care Provider] - Activity Restrictions/Additional Instructions: Follow-up with marriage counselor minister Disposition Disposition: Home, Self Care Discharge Date/Time: 07/08/22 20:28
[2022-07-08 15:07] LABS: Absolute Lymphocyte Count 1.51 X10^3/uL (0.83-4.51); Basophil# 0.06 X10^3/uL; Basophil% 0.7 % (0-1); Eosinophil# 0.34 X10^3/uL; Eosinophils% 3.9 % (0-5); Hematocrit 43.6 % (40-54); Hemoglobin 13.9 g/dL (13.0-16.5); Lymphocyte # 1.51 X10^3/ul (0.83-4.51); Lymphocyte % 17.5 % (19-41); Mean Corp Hgb Conc 31.9 g/dL (32-36); Mean Corpuscular Volume 94.2 fL (80-94); Mean Platelet Vol. 10.3 fl (6.2-12.0); Monocyte# 0.76 X10^3/uL; Monocyte% 8.8 % (0-10); NRBC Flagged by Analyzer 0 % (0-5); Neutrophil # 5.95 X10^3/uL (2.7-7.7); Neutrophil % 68.9 % (47-70); Platelet Count 247 K/mm3 (150-450); RBC Distribution Width CV 13.6 % (11.6-14.6); RBC Distribution Width SD 46.5 fl (35.1-43.9); Red Blood Count 4.63 M/mm3 (4.6-6.2); White Blood Count 8.6 K/mm3 (4.4-11.0)
[2022-07-08 15:16] LABS: International Normalized Ratio 1.2; Prothrombin Time (Protime)PT. 15.1 SECONDS (11.7-14.9)
--- NOTE | 2022-07-08 15:23 | NURSING ---
PAGED DR HILTON, CARDIOLOGY, [phone]
[2022-07-08 15:25] LABS: Anion Gap 7 (5-15); BUN 24 mg/dL (7-18); BUN/Creat Ratio 17.9 RATIO (10-20); Calcium,Total 9.7 mg/dL (8.5-10.1); Chloride 109 mmol/L (98-107); Creatinine, Serum 1.34 mg/dL (0.70-1.30); EST Glomerular Filtration Rate 55 mL/min (>60); Est Glom Filt Rate - Afr Amer 67 mL/min (>60); Estimated Creatinine Clearance 48.36 ml/min; Glucose 131 mg/dL (74-106); Potassium 3.9 mmol/L (3.5-5.1); Sodium Level 143 mmol/L (136-145); Troponin-I HS (w/2H Reflex) 18 pg/mL (3.0-78.0)
[2022-07-08 15:27] LABS: BNP,B-Type NATRIURETIC PEPTIDE 92.2 pg/mL (0-100)
--- NOTE | 2022-07-08 15:45 | RAD_ITS ---
EXAM: XR CHEST, 1 VIEW CLINICAL INDICATION: chest pain TECHNIQUE: Frontal view of the chest. This report was created using [employer] report generation technology. COMPARISON: XR Chest dated 07/02/2022 FINDINGS: LUNGS AND PLEURAL SPACES: Shallow inspiration. No pneumothorax. No effusion. HEART: Normal heart size. MEDIASTINUM: No mediastinal or hilar mass. BONES/JOINTS: No acute abnormality. SOFT TISSUES: Normal. RAD/Chest 1 View (Portable) IMPRESSION: No acute cardiopulmonary abnormality. Electronically Signed: Campos Blankenship MD at 15:54 EST ,
[2022-07-08] MEDS: dilTIAZem 25 MG/5 ML Vial 20 MG IV BOLUS (15:57)
[2022-07-08 16:37] LABS: BNP,B-Type NATRIURETIC PEPTIDE 94.1 pg/mL (0-100)
[2022-07-08 17:03] LABS: Reflex Troponin-HS? (from REC) Y
[2022-07-08 18:13] LABS: Troponin-I HS 23 pg/mL (3.0-78.0)
[2022-07-08] MEDS: Propofol 200 MG/20 ML Vial IV BOLUS (18:46)
== END 2022-07-08 20:28 | disposition home or self-care (01) ==
PROVIDERS: Nurse Practitioner; Emergency Provider Emergency Medicine; PCP Internal Medicine; Visit Provider Emergency Medicine
DX: I48.91 Unspecified atrial fibrillation (principal); E11.9 Type 2 diabetes mellitus without complications; I10 Essential (primary) hypertension; E78.00 Pure hypercholesterolemia, unspecified; K21.9 Gastro-esophageal reflux disease without esophagitis; Z79.01 Long term (current) use of anticoagulants; Z79.82 Long term (current) use of aspirin; Z79.899 Other long term (current) drug therapy; Z79.84 Long term (current) use of oral hypoglycemic drugs
CPT/HCPCS: 71045; 80048; 83880; 84484; 85025; 85610; 92960; 93005; 96374; 96375; 99152; 99284; A4216

== ENCOUNTER 2022-11-19 09:46 | Emergency (ER) | payer MEDICARE, OTHER, SELFPAY ==
[2022-11-19] VITALS (11 sets, daily range): BP systolic 94–137; BP diastolic 71–94; PULSE 60–128; RESP 10–24; TEMP 36.2; O2SAT 90–96; BMI 34.5
--- NOTE | 2022-11-19 09:57 | EKG12_ITS ---
Test Reason : PALP Blood Pressure : / mmHG Vent. Rate : 121 BPM Atrial Rate : 121 BPM P-R Int : 192 ms QRS Dur : 090 ms QT Int : 326 ms P-R-T Axes : 000 -27 002 degrees QTc Int : 462 ms Atrial flutter T wave abnormality, consider inferior ischemia Abnormal ECG Confirmed by AMALIA RAMIREZ, YAMILE ([id number]), senior technical editor ANTONIA CHEN ([id number]) on 11/21/2022 9:50:40 AM Referred By: RUSSELL/KEN Confirmed By:YAMILE HOLLAND MD
--- NOTE | 2022-11-19 09:57 | RAD_ITS ---
STUDY: X-RAY CHEST REASON FOR EXAM: Male, 77 years old. Chest pain TECHNIQUE: Frontal view of the chest COMPARISON: 07/08/2022 FINDINGS: The lungs are clear. There are no pleural effusions. There is no pneumothorax. The heart is normal in size. The visualized osseous structures are within normal limits. RAD/Chest 1 View (Portable) IMPRESSION: No acute thoracic pathology. Electronically Signed: Kodi Leon MD at 10:35 EDT ,
--- NOTE | 2022-11-19 10:15 | ED.VIS.CHEST ---
HPI History of Present Illness Chief Complaint: Palpitations Informant: patient Onset/Context/Timing Onset: Today and Yesterday Activity at onset: sudden Timing: Continuous Current Severity: Mild Maximum Severity: Mild Worsened By: Nothing Relieved By: Nothing Associated Symptoms: Positive for Palpitations; Negative for Nausea, Vomiting, Diaphoresis, Cough, Lightheadedness or Acid Reflux Narrative Narrative: 77-year-old male history of A-fib on beta-jose j and the blood thinner Eliquis. Also history of diabetes, hypertension. States that he has had palpitation increased heart rate since yesterday. He has an Apple Watch and said it was reading around 1 20-1 30 and thought it was A-fib. Denies any chest pain. No fever or chills. No vomiting or diarrhea. Similar episode about a month ago he came in emergency department was cardioverted at that time. Prior Similar Symptoms: Yes Recent Illness/Hospitalization: No CVD Risk Factors: Positive for Hypertension, Diabetes and Hypercholesterolemia PE Risk Factors: Negative for Recent Travel/Surgery, Recent Immobilization, Prior DVT or PE, Cancer or OCP + Smoking + >/=35 TAD Risk Factors: Negative for Marfan's Syndrome [facility] Medical History Afib Anal fissure Diabetes GERD (gastroesophageal reflux disease) High blood cholesterol Hypertension Home Medications aspirin 81 mg chewable tablet 81 mg PO DAILY@0800 07/24/13 [History Last Taken 12/14/16 07:00] lisinopril 20 mg tablet 20 mg PO DAILY 07/24/13 [History Last Taken 12/14/16 07:00] metformin 1,000 mg tablet 1,000 mg PO BIDCM 07/24/13 [History Last Taken 12/14/16 07:00] metoprolol tartrate 50 mg tablet 25 mg PO BID 07/24/13 [History Last Taken 12/14/16 07:00] vhydkulm-der-kyteb acid 0.4 mg-lycopene 300 mcg-lutein 250 mcg tablet (Centrum Silver) 1 ea PO DAILY 07/24/13 [History Last Taken 12/14/16 07:00] tamsulosin 0.4 mg capsule 0.8 mg PO DAILY 07/24/13 [History Last Taken 12/14/16 07:00] biotin 5 mg capsule 5 mg PO DAILY 12/14/16 [History Last Taken Unknown] flecainide 100 mg tablet 50 mg PO BID 12/14/16 [History Last Taken Unknown] pravastatin 20 mg tablet (Pravachol) 40 mg PO QHS 12/14/16 [History Last Taken Unknown] pantoprazole 40 mg tablet,delayed release 40 mg PO DAILY #30 TABLETS 12/15/16 [Rx Last Taken Unknown] coenzyme Q10 50 mg chewable tablet 200 mg PO DAILY supplement 10/02/18 [History Last Taken Unknown] levalbuterol tartrate 45 mcg/actuation aerosol inhaler (Xopenex HFA) 1 puff inhalation Q6H PRN Wheezing 08/25/21 [History Last Taken Unknown] amlodipine 5 mg tablet 5 mg PO DAILY 07/08/22 [History Last Taken Unknown] apixaban 5 mg tablet (Eliquis) 5 mg PO BID 07/08/22 [History Last Taken Unknown] magnesium oxide 400 mg PO DAILY 07/08/22 [History Last Taken Unknown] finasteride 5 mg tablet 5 mg PO DAILY 11/06/22 [History Last Taken Unknown] fluticasone fur. 100 mcg-umeclid 62.5 mcg-vilant 25 mcg inhalat.powder (Trelegy Ellipta) 1 inh inhalation DAILY 11/06/22 [History Last Taken Unknown] doxazosin 4 mg tablet (Cardura) 4 mg PO DAILY 11/19/22 [History Last Taken Unknown] Allergy/AdvReac Type Severity Reaction Status Date / Time adhesive AdvReac Rash Verified 11/19/22 09:50 naproxen [From Naprosyn] AdvReac Nausea Verified 11/19/22 09:50 dust mites Allergy Unknown Shortness Uncoded 11/19/22 09:50 of breath Family History Mother Colon cancer Hypertension Father Cancer prostate High cholesterol Hypertension Sister Breast cancer Surgical History Hx of colonoscopy Hx of tonsillectomy Social History Smoking Status: Never smoker ROS ROS ED ROS Narrative Palpitations. Accelerated heart rate. Review of Systems ROS Unobtainable: Denies due to encephalopathy Constitutional Constitutional ED: Denies chills, fever(s) or subjective Eyes Eyes: Reports none; Denies blurry vision ENT ENT ED: Denies ear pain, rhinorrhea or sore throat Cardiovascular Cardiovascular: Reports as per HPI, palpitations and racing heartbeat; Denies chest pain Respiratory/Chest Respiratory/Chest: Denies cough or dyspnea Gastrointestinal Gastrointestinal: Denies abdominal pain Genitourinary Genitourinary ED: Denies dysuria or hematuria Musculoskeletal Musculoskeletal: Denies arthralgias Integumentary Denies abscess Neurologic Neurologic: Denies headache(s) Psychiatric Psychiatric: Denies anxiety or depression Endocrine Endocrinology: Denies cold intolerance Hematologic/Lymphatic Hematologic/Lymphatic: Denies easy bleeding Allergic/Immunologic Allergic/Immunologic ED: Denies mouth swelling EXAM Physical Exam Narrative Exam Narrative: Well-appearing 77-year-old male. Vital signs are stable he is tachycardic on monitor 120 looks like atrial flutter. Pulse ox 95% on room air no signs hypoxia. Initial pressure 118/85. He does not look septic toxic or in any distress. at bedside. H EENT exam unremarkable. Lungs clear to auscultation. Heart tachycardic rate about 120. No murmur. Abdomen soft nontender. Moving all 4 extremities. Calves are nontender without edema or cords. Neurologically is awake and alert with no focal motor deficits. Const Vital Signs: 11/19/22 09:47 11/19/22 10:27 11/19/22 11:00 Temperature 97.1 F L Temperature Source Temporal Pulse Rate 121 H 128 H Pulse Rate [1 (Initial Baseline)] Pulse Rate [2] Pulse Rate [3] Respiratory Rate 16 24 H Respiratory Rate [1 (Initial Baseline)] Respiratory Rate [2] Respiratory Rate [3] Blood Pressure 118/85 H 111/72 Blood Pressure [1 (Initial Baseline)] Blood Pressure [2] Blood Pressure [3] Blood Pressure Mean 96 85 Pulse Ox 95 90 Oxygen Delivery Method Room Air Room Air Room Air Oxygen Delivery Method [1 (Initial Baseline)] Oxygen Delivery Method [2] Oxygen Delivery Method [3] Oxygen Flow Rate (L/min) Oxygen Flow Rate (L/min) [1 (Initial Baseline)] Oxygen Flow Rate (L/min) [2] 11/19/22 12:00 11/19/22 13:00 11/19/22 14:35 Temperature Temperature Source Pulse Rate 128 H 127 H Pulse Rate [1 (Initial Baseline)] Pulse Rate [2] Pulse Rate [3] Respiratory Rate 12 22 H Respiratory Rate [1 (Initial Baseline)] Respiratory Rate [2] Respiratory Rate [3] Blood Pressure 122/90 H 137/94 H Blood Pressure [1 (Initial Baseline)] Blood Pressure [2] Blood Pressure [3] Blood Pressure Mean 100 108 Pulse Ox 92 92 Oxygen Delivery Method Room Air Room Air Nasal Cannula Oxygen Delivery Method [1 (Initial Baseline)] Oxygen Delivery Method [2] Oxygen Delivery Method [3] Oxygen Flow Rate (L/min) 2 Oxygen Flow Rate (L/min) [1 (Initial Baseline)] Oxygen Flow Rate (L/min) [2] 11/19/22 13:36 11/19/22 14:22 11/19/22 14:30 Temperature Temperature Source Pulse Rate 123 H Pulse Rate [1 (Initial Baseline)] 111 H Pulse Rate [2] 63 Pulse Rate [3] 60 Respiratory Rate 20 H Respiratory Rate [1 (Initial Baseline)] 18 Respiratory Rate [2] 19 H Respiratory Rate [3] 20 H Blood Pressure 107/76 Blood Pressure [1 (Initial Baseline)] 106/87 H Blood Pressure [2] 120/84 H Blood Pressure [3] 110/77 Blood Pressure Mean Pulse Ox 91 Oxygen Delivery Method Room Air Nasal Cannula Oxygen Delivery Method [1 (Initial Baseline)] Nasal Cannula Oxygen Delivery Method [2] Non-Rebreather Oxygen Delivery Method [3] Non-Rebreather Oxygen Flow Rate (L/min) 5 Oxygen Flow Rate (L/min) [1 (Initial Baseline)] 5 Oxygen Flow Rate (L/min) [2] 15 11/19/22 14:40 11/19/22 14:55 Temperature Temperature Source Pulse Rate 61 Pulse Rate [1 (Initial Baseline)] Pulse Rate [2] Pulse Rate [3] Respiratory Rate 10 L Respiratory Rate [1 (Initial Baseline)] Respiratory Rate [2] Respiratory Rate [3] Blood Pressure 105/73 Blood Pressure [1 (Initial Baseline)] Blood Pressure [2] Blood Pressure [3] Blood Pressure Mean 83 Pulse Ox 93 Oxygen Delivery Method Room Air Room Air Oxygen Delivery Method [1 (Initial Baseline)] Oxygen Delivery Method [2] Oxygen Delivery Method [3] Oxygen Flow Rate (L/min) Oxygen Flow Rate (L/min) [1 (Initial Baseline)] Oxygen Flow Rate (L/min) [2] Positive well nourished and well developed; Negative for cachectic, contractures or unkempt General Appearance ED: well developed and NAD; Negative for unkempt, cachectic, contractures or pallor Nutritional Appearance: Negative for cachectic HEENT Reports moist mucous membranes normocephalic and atraumatic; Negative for trauma or tenderness Eyes PERRL and EOMs intact bilaterally General Eye ED: Negative for pale conjunctiva or scleral icterus Neck no lymphadenopathy, supple and no JVD General: Negative for tenderness Chest Wall inspection of chest normal and palpation of chest normal Chest: Negative for tenderness Resp normal respiratory effort and clear to auscultation bilaterally Effort and Inspection: Negative for respiratory distress Auscultation: Negative for rales, rhonchi or wheezes Cardio S1 normal heart sound, S2 normal heart sound and no murmurs; Negative for regular rate or regular rhythm Rate: tachycardic Rhythm: abnormal rhythm GI normal to inspection, nondistended, normoactive bowel sounds, soft to palpation, non-tender, non-distended and no masses Auscultation: Negative for hyperactive bowel sounds Palpation: Negative for splenomegaly Back/Spine no CVA tenderness and no thoracic nor lumbar tenderness General Back: Negative for CVA tenderness Cervical Spine: Negative for cervical spine tenderness Extremity normal to inspection General Extremety ED: Negative for edema General Extremity: Negative for edema Neuro oriented x3 and CN's II-XII intact bilaterally Sensorium / Orientation: awake, alert, oriented to person, oriented to place and oriented to time; Negative for confused or lethargic Motor Exam: strength 5/5 throughout Psych mental status grossly normal Appearance: Negative for unkempt Attitude: No agitated Mood & Affect: Negative for depressed, anxious or tearful Skin no rashes or lesions noted and no wounds General Skin Exam: Negative for jaundice or pallor Rashes: No rashes noted Trauma: Negative for abrasion or laceration MDM MDM MDM Narrative Medical decision making narrative: 77-year-old male with a tachycardia with a history of A-fib. On the EKG and monitor mostly atrial flutter around 120. Undergo cardiac work-up. He is on Eliquis has been taking it regularly. If we need to we may have to cardiovert him. He will initially be given a dose of Lopressor IV. Did not change his heart rate still in the mid 120s. Discussed with the patient and his he does not want additional medication at this time he would prefer to be cardioverted like he was several months ago. Patient last ate about 3 hours ago. He had cereal and a banana. He will be given propofol and cardioverted. Patient doing well at 2:48 PM. He has woken up because of sedation. His vital signs are stable. His pulse ox is 95% on oxygen. He will be observed and reevaluated for conscious sedation protocol. And when he is doing well and is calm completely out of sedation he will be discharged home. is currently present in the room. Repeat exam at 3:25 PM patient doing well. He and his are comfortable with him being discharged. His vital signs are stable. He is awake and alert. Acting appropriately. History & Record Review Discussion w/independent historian: Patient and Family Additional record(s) reviewed:: Prior inpatient record, Prior outpatient record, Prior ED visit and Prior labs Lab Data Attestation: I reviewed the patient's lab results. Lab results narrative: CBC normal. White count 8. H&H 14 and 45. Platelets 212. Electrolytes unremarkable gap of 2. BUN of 24 creatinine 1.37. Glucose 198. Troponin normal at 23. Chest x-ray chronic changes no acute process. Labs: Laboratory Results - last 24 hr 11/19/22 11/19/22 10:25 10:25 WBC 8.0 RBC 4.92 Hgb 14.6 Hct 45.6 MCV 92.7 MCH 29.7 MCHC 32.0 RDW Std Deviation 46.3 H RDW Coeff of Justice 13.6 Plt Count 212 MPV 10.4 Immature Gran % (Auto) 0.200 Neut % (Auto) 67.3 Lymph % (Auto) 14.3 L Ector % (Auto) 11.0 H Eos % (Auto) 6.2 H Baso % (Auto) 1.0 Absolute Neuts (auto) 5.4 Absolute Lymphs (auto) 1.15 Nucleated RBC % 0 Sodium 141 Potassium 4.2 Chloride 109 H Carbon Dioxide 30.0 Anion Gap 2 L BUN 24 H Creatinine 1.37 H Estim Creat Clear Calc 46.59 Est GFR (MDRD) Af Amer 65 Est GFR (MDRD) Non-Af 54 L BUN/Creatinine Ratio 17.5 Glucose 198 H Calcium 9.5 Troponin I High Sens 23 Radiography Chest X-Ray - ED: 1 View, Read by ED Physician, Read by Radiologist, Normal, Heart, Lungs, Mediastinum and Bony Structures Diagnostic Testing: Clinical Impression(s) from Imaging Studies Chest X-Ray 11/19/22 09:57 IMPRESSION: No acute thoracic pathology. Electronically Signed: Kodi Leon MD at 10:35 EDT , Chest x-ray, portable, single view interpreted both by myself and the radiologist shows no acute abnormality. Chronic changes. Normal cardiac silhouette. No fluid or effusions. Rhythm Strip Rhythm Strip: Atrial flutter Rate: 121 Ectopy: None EKG Initial EKG: Attestation: I personally reviewed and interpreted this EKG as follows: Interpretation: Atrial Flutter Comments: Atrial flutter at 121. No signs of VT or ischemia. Follow-up EKG: Attestation: I personally reviewed and interpreted this EKG as follows: Interpretation: Sinus Rhythm and No Acute Injury Pattern Comments: Post cardioversion patient has 6 normal sinus rhythm now rate is 62. He is out of A-fib. There is no acute signs of VT or ischemia. Prior EKG tracings: available for review Prior: Changed Procedures Procedural Sedation Procedural sedation for cardioversion:: Consent Signed: Yes Any Problems With Anesthesia: No You/Your family experience fever (hyperthermia) w/anesthesia: No Relationship: Patient was sedated using 60 mg IV of propofol. Under procedural sedation Sedation medication: Propofol Dose: 60 Mallampati Score: Class II ASA Classification: II Discharge Plan Triage Chief Complaint: Palpitations ED Provider: Ayo Holm Dx/Rx/DC Orders Clinical Impression: Atrial fibrillation with rapid ventricular response, History of cardioversion, Chronic anticoagulation, Diabetes Instructions: AFib Prescriptions: No Action finasteride 5 mg tablet 5 mg PO DAILY Trelegy Ellipta 100-62.5-25 mcg blister with device 1 inh inhalation DAILY lisinopril 20 MG tablet 20 mg PO DAILY tamsulosin 0.4 MG capsule 0.8 mg PO DAILY metformin 1,000 MG tablet 1,000 mg PO BIDCM metoprolol tartrate 50 MG tablet 25 mg PO BID aspirin 81 MG tablet,chewable 81 mg PO DAILY@0800 Centrum Silver 1 EACH tablet 1 ea PO DAILY biotin 5 MG capsule 5 mg PO DAILY flecainide 100 MG tablet 50 mg PO BID pravastatin [Pravachol] 20 MG tablet 40 mg PO QHS pantoprazole 40 MG tablet 40 mg PO DAILY Qty: 30 0RF coenzyme Q10 50 MG tablet,chewable 200 mg PO DAILY levalbuterol tartrate [Xopenex HFA] 45 mcg/actuation Hfa Aerosol Inhaler 1 puff INHALATION Q6H PRN (Reason: Wheezing) amlodipine 5 mg tablet 5 mg PO DAILY Eliquis 5 mg tablet 5 mg PO BID Rx Instructions: 10 mg twice a day for the first week. Then 5 mg twice a day. magnesium oxide 400 mg magnesium tablet 400 mg PO DAILY doxazosin [Cardura] 4 mg Tablet 4 mg PO DAILY Primary Care Provider: Lisa Cardenas Referrals: Lisa Cardenas MD [Primary Care Provider] - As Needed Activity Restrictions/Additional Instructions: No driving today. Follow-up with primary care provider Return if you have back in A-fib and have an accelerated heart rate. Disposition Disposition: Home, Self Care
[2022-11-19] MEDS: Metoprolol Tartrate 5 MG/5 ML Vial IV (10:27)
[2022-11-19 10:40] LABS: Absolute Lymphocyte Count 1.15 X10^3/uL (0.83-4.51); Absolute Neutrophil Count 5.4 X10^3/uL (2.0-7.7); Basophil# 0.08 X10^3/uL; Eosinophils% 6.2 % (0-5); Hematocrit 45.6 % (40-54); Hemoglobin 14.6 g/dL (13.0-16.5); Lymphocyte # 1.15 X10^3/ul (0.83-4.51); Lymphocyte % 14.3 % (19-41); Mean Corpuscular Hgb 29.7 pg (27.0-32.0); Mean Corpuscular Volume 92.7 fL (80-94); Mean Platelet Vol. 10.4 fl (6.2-12.0); Monocyte# 0.88 X10^3/uL; NRBC Flagged by Analyzer 0 % (0-5); Neutrophil % 67.3 % (47-70); Platelet Count 212 K/mm3 (150-450); RBC Distribution Width CV 13.6 % (11.6-14.6); RBC Distribution Width SD 46.3 fl (35.1-43.9); Red Blood Count 4.92 M/mm3 (4.6-6.2)
[2022-11-19 10:56] LABS: Anion Gap 2 (5-15); BUN 24 mg/dL (7-18); BUN/Creat Ratio 17.5 RATIO (10-20); Calcium,Total 9.5 mg/dL (8.5-10.1); Chloride 109 mmol/L (98-107); Creatinine, Serum 1.37 mg/dL (0.70-1.30); EST Glomerular Filtration Rate 54 mL/min (>60); Est Glom Filt Rate - Afr Amer 65 mL/min (>60); Estimated Creatinine Clearance 46.59 ml/min; Glucose 198 mg/dL (74-106); Potassium 4.2 mmol/L (3.5-5.1); Sodium Level 141 mmol/L (136-145); Troponin-I HS 23 pg/mL (3.0-78.0)
[2022-11-19] MEDS: Propofol 200 MG/20 ML Vial 60 MG IV BOLUS (14:21)
--- NOTE | 2022-11-19 14:30 | EKG12_ITS ---
Test Reason : REPEAT Blood Pressure : / mmHG Vent. Rate : 062 BPM Atrial Rate : 062 BPM P-R Int : 168 ms QRS Dur : 094 ms QT Int : 404 ms P-R-T Axes : 027 -20 -14 degrees QTc Int : 410 ms Normal sinus rhythm Nonspecific T wave abnormality Abnormal ECG Confirmed by AMALIA RAMIREZ, YAMILE ([id number]), newspaper editor ANTONIA CHEN ([id number]) on 11/21/2022 9:51:02 AM Referred By: MARGAUX Confirmed By:YAMILE HOLLAND MD
== END 2022-11-19 16:10 | disposition home or self-care (01) ==
PROVIDERS: Emergency Provider Emergency Medicine; PCP Internal Medicine; Visit Provider Emergency Medicine
DX: I48.91 Unspecified atrial fibrillation (principal); E11.9 Type 2 diabetes mellitus without complications; E78.00 Pure hypercholesterolemia, unspecified; I10 Essential (primary) hypertension; Z79.01 Long term (current) use of anticoagulants; Z79.82 Long term (current) use of aspirin; Z79.84 Long term (current) use of oral hypoglycemic drugs; Z79.899 Other long term (current) drug therapy
CPT/HCPCS: 71045; 80048; 84484; 85025; 93005; 96374; 99284; A4216

== ENCOUNTER 2022-12-21 05:52 | Day surgery (SDC) | payer MEDICARE, OTHER, SELFPAY ==
[2022-12-21] VITALS (12 sets, daily range): BP systolic 125–145; BP diastolic 66–83; PULSE 58–74; RESP 14–18; TEMP 36.4–37; O2SAT 91–94; BMI 34.4
[2022-12-21] MEDS: Lactated Ringers 1,000 ML 15 ML IV (06:31)
--- NOTE | 2022-12-21 06:53 | PCM.HP.BLA ---
History and Physical Date of Admission: 12/21/22 Visit Reasons:?COLONOSCOPY Chief Complaint: Chest pain Allergies adhesive Adverse Reaction (Verified 11/06/22 13:31) Rashnaproxen [From Naprosyn] Adverse Reaction (Verified 11/06/22 13:31) Nauseadust mites Allergy (Unknown, Uncoded 11/06/22 13:33) Shortness of breath PFSH Medical History?(Updated 11/06/22 @ 13:[address] Ronald Larsen MD) Afib Anal fissure Diabetes GERD (gastroesophageal reflux disease) High blood cholesterol Hypertension Surgical History?(Updated 11/06/22 @ 13:25 by Jud Gu) Hx of colonoscopy Hx of tonsillectomy Family History?(Updated 11/06/22 @ 13:27 by Jud Gu) Mother Colon cancer HypertensionFather Cancer ?? ? prostate High cholesterol HypertensionSister Breast cancer Social History? Smoking Status:? Never smoker HPI HPI HPI: He is [id number] gentleman.? He is here to discuss a colonoscopy.? He has a history of asthma and atrial fibrillation and gastroesophageal reflux disease.? As recently as July 08, 2022 he presented to the emergency room with palpitations was noted to be in atrial fibrillation RVR.? He underwent cardioversion.? Among his other medications he is maintained on apixaban and low-dose aspirin and pantoprazole 40 mg daily The patient has had a previous history colon polyp.? He has a family history of colon cancer in his mother and his sister and his father had prostate cancer.? He had previous polyps.? Most recent colonoscopy 2017. He has had long-term gastroesophageal reflux disease and heartburn and is on chronic Protonix.? He thinks possibly he had a very remote upper endoscopy but that was many years ago.? He denies bright red blood per rectum or melena.? No abdominal pain.? No unexpected weight loss. He does have chronic lower extremity swelling.? 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 He required cardioversion May 2022.? Subsequent to that he had some of his medications changed and he stopped drinking caffeine and has had no recurrences.? He does take his blood pressure at home.? Recently he had his amlodipine increased to 5 mg daily. ROS General General: No weight change, appetite, fatigue, colon cancer, breast cancer or weakness HEENT HEENT: No difficulty swallowing, eye injury, eye surgery, swollen glands or hoarseness Endo Endocrine: Yes diabetes mellitus; No thyroid disease, thyroid cancer, Hair loss, heat intolerance or cold intolerance Skin Skin: No rash or changing moles Breast Breast: No left breast lump, right breast lump, nipple discharge, breast pain, abnormal mammogram, abnormal US or breast enlargement Musc Musculoskeletal: Yes back problems; No arthritis, rheumatoid arthritis, gout or joint pain Cardio Cardiovascular: Yes heart disease, atrial fibrillation and high blood pressure; No murmur, pacemaker, heart attack, heart stent, palpitations, shortness of breat with exertion or chest pain Psych Psychiatric: No depression, anxiety or hearing voices Resp Respiratory: No shortness of breath, Yes sleep apnea, No cough, No COPD, Yes asthma, No emphysema and No wheezing Gastro Gastrointestinal: No abdominal pain, No nausea or vomiting, No diarrhea, No constipation, No blood in stool, Yes acid reflux, No hemorrhoids, No ulcers, No gallbladder problem and No black,tarry stools Ha Hematologic: Yes blood thinners, No blood disorders, No bleeding, No anemia and No blood clots Neuro Neurologic: No system reviewed and no additional complaints, except as documented, No as per HPI, No abnormal gait, No abnormal hearing, No abnormal movements, No abnormal speech, No behavioral changes, No burning sensations, No confusion, No convulsions, No disequilibrium, No dizziness, No localized weakness, No frequent falls, No headache(s), No lack of coordination, No loss of vision, No memory loss, No numbness, No other visual disturbances, No radicular pain, No restless legs, No sensory deficit, No syncope, No tingling, No tremor(s), No weakness and No other Exam Const General: cooperative, healthy appearing, comfortable and no acute distress Nutritional Appearance: obese HENPR Head: normal to inspection Eyes General: appearance normal, both eyes and all related structures Neck Neck: normal visual inspection Chest Chest palpation & inspection: normal inspection of the chest Resp Effort & Inspection: normal respiratory effort Auscultation: clear to auscultation bilaterally Cardio Rate: regular rate Rhythm: regular rhythm GI Inspection: normal to inspection Palpation: soft and no hepatosplenomegaly Auscultation: normal bowel sounds Other: No masses, no tenderness, no rebound or guarding Musc Cervical Spine: normal cervical lordosis Skin General: no rashes or lesions noted Neuro General: patient alert, patient awake and patient oriented x3 Extrem General: no calf tenderness Other: 1-2+ bilateral lower extremity pitting edema Psych Appearance: grossly normal Assessment and Plan Assessment and Plan (1) Personal history of colonic polyps: ?Status:?Acute (2) Family history of colon cancer in mother: ?Status:?Acute ? ? ? Orders: Orders Colonoscopy Today ? ? EGD Today ? ? Plan The patient has had chronic gastroesophageal reflux disease/heartburn and I recommend to him a esophagogastroduodenoscopy with biopsy Patient's had a personal history of colon polyps and a family history of colon cancer in his mother and sister.? I recommend a follow-up colonoscopy with possible biopsy or polypectomy as indicated.? We will have him hold his Eliquis 2 days preintervention. Because of his history of atrial fibrillation that required cardioversion we will use monitored anesthesia care.? He is aware of the technique, benefit, risks and complications and elects to schedule and proceed as noted. I appreciate the opportunity of assisting with the surgical care.? is Anju. Copy:MD Ronald Horvath M.D., F.A.C.S Patient has been cleared by cardiology to hold his anticoagulant Eliquis 2 days prior to intervention. Atrial fibrillation is controlled. History and physical has been reviewed. We will proceed with planned combined esophagogastroduodenoscopy because of reflux symptoms and colonoscopy because of personal history of colon polyps and family history of colon cancer. Ronlad Larsen M.D., F.A.C.S.
[2022-12-21 06:56] LABS: Bedside Glucose 136 mg/dL (74-106)
--- NOTE | 2022-12-21 07:00 | IMM_PTH ---
PATIENT: LIZZETTE BURGER LOC: EN U#:[id number] AGE/SX: 77/M ROOM: RE12/21/[address]: Dr. Ronald Larsen MD : 1945 BED: DIS: 12/21/2022 SPEC #: [id number] RECD: 12/21/22 14:41 STATUS: MARKUS REBrea #: [id number] [place]: 12/21/22 07:[address]: Ronald Larsen DEPT: IMMUNOHISTOCHEMISTRY RECD BY: Ana Hines ENTERED: 12/21/22 14:42 SP TYPE: IMMUNO OTHR DR: Dr. Lisa Cardenas MD Tissues: A - Stomach, NOS C - Esophagus, NOS Procedures: H Pylori (initial) P53 (initial) KI-67 (add) PHYSICIAN & INSTITUTION [place] [id number] SPECIMEN INFORMATION: Tissue Source: A ? Gastric antrum, C ? Distal esophagus Clinical Info: History of colonic polyps Specimen Number: [id number] A & C CPT code: 67531 x2, 17075 METHODOLOGY: Deparaffinized sections of prefer/formalin-fixed tissue or PAP/DQ stained slides are incubated with monoclonal/polyclonal antibodies/oligonucleotide probes. Localization is made via biotin free immunoperoxidase method. Appropriate controls are performed and reacted as expected. Results on target cell population are indicated in the following table: RESULTS: ANTIBODY / CLONE RESULT Block A H Pylori (polyclonal) negative Block C P53 (DO-7) negative, null pattern Ki-67 (30-9) positive, very low These tests were developed and their performance characteristics determined by [facility]. They may not have been cleared or approved by the U.S. Food and Drug Administration. The FDA has determined that such clearance or approval is not necessary. The above immunohistochemical/dualISH markers are ordered and reviewed by the Pathologist. INTERPRETATION: A. Gastric antrum, biopsy: Negative for Helicobacter pylori organisms. C. Distal esophagus, biopsy: Negative for dysplasia. SJ:francesca 12/25/2022
--- NOTE | 2022-12-21 07:00 | EGD_PTH ---
PATIENT: LIZZETTE BURGER LOC: EN U#:[id number] AGE/SX: 77/M ROOM: RE12/21/[address]: Dr. Ronald Larsen MD : 1945 BED: DIS: 12/21/2022 SPEC #: [id number] RECD: 12/21/22 13:25 STATUS: MRAKUS JESUS #: [id number] RY[place]: 12/21/22 07:[address]: Ronald Larsen DEPT: SURGICAL PATHOLOGY RECD BY: Maisha Ruiz ENTERED: 12/21/22 13:58 SP TYPE: EGD BIOPSY OT DR: Dr. Lisa Cardenas MD Tissues: A - Gastric mucous membrane B - Stomach, NOS C - Esophagus, NOS D - Ascending colon Procedures: Special Stain Group II Surgery Specimen Level IV Alcian Blue/PAS (control) HEADER OPERATION: Colonoscopy, EGD ([facility]) with biopsy, polypectomy, clip placement PRE-OP DIAGNOSIS: History of colonic polyps TISSUE SUBMITTED: A ? Gastric antrum biopsy, H. pylori and path, B ? Polyp greater curvature stomach biopsy, C ? Distal esophagus biopsy, E ? Polyp proximal ascending MICROSCOPIC DIAGNOSIS A. Gastric antrum, biopsy: Mild gastritis. See microscopic description and comment. B. Polyp greater curvature stomach, biopsy: Fundic gland polyp. C. Distal esophagus, biopsy: Fragments of gastroesophageal mucosa with focal intestinal metaplasia (goblet cell metaplasia), consistent with Cervantes's esophagus. Mild chronic inflammation. Negative for dysplasia. See comment. D. Polyp proximal ascending colon, polypectomy: Fragments of tubular adenoma. SJ:francesca 12/24/2022 COMMENT A. The results of immunohistochemistry for Helicobacter pylori will be reported separately ([id number]). C. Immunohistochemistry ([id number]) for P53 and Ki-67 will be performed and results will be reported separately. Alcian blue/PAS stain with matched control is used in the evaluation of the specimen. The specimen predominantly consists of squamous mucosa. MICROSCOPIC DESCRIPTION Slides are reviewed. A. The specimen shows fragments of gastric mucosa with chronic inflammatory cell infiltrates in the lamina propria consisting of lymphocytes and plasma cells, consistent with mild chronic gastritis. GROSS DESCRIPTION A - Received in fixative is one container labeled with the patient's name and designated biopsy gastric antrum. The specimen consists of one irregular fragment of light goetz soft tissue that measures 0.3 x 0.2 x 0.1 cm. The specimen is totally submitted in one cassette. B - Received in fixative is one container labeled with the patient's name and designated biopsy polyp greater curvature. The specimen consists of one irregular fragment of light goetz soft tissue that measures 0.4 x 0.3 x 0.2 cm. The specimen is totally submitted in one cassette. C - Received in fixative is one container labeled with the patient's name and designated biopsy distal esophagus. The specimen consists of multiple irregular fragments of light goetz soft tissue that in aggregate measure 0.8 x 0.3 x 0.1 cm. The specimen is totally submitted in one cassette. D - Received in fixative is one container labeled with the patient's name and designated polyp proximal ascending. The specimen consists of two irregular fragments of light goetz soft tissue that in aggregate measure 0.6 x 0.3 x 0.1 cm. The specimen is totally submitted in one cassette. / SJ:rg 12/21/2022 TC:3 CPT: 10314 x4, 81162
--- NOTE | 2022-12-21 07:58 | OP.EGD_ITS ---
Patient Name: Bill Reynoso Procedure Date: 12/21/2022 6:58 AM Date of : 1945 Age: 77 Procedure: Upper GI endoscopy Indications: Suspected esophageal reflux Providers: Ronald Larsen MD Referring MD: Ronald Larsen MD Medicines: See the Anesthesia note for documentation of the administered medications Complications: No immediate complications. Procedure: Pre-Anesthesia Assessment: - Prior to the procedure, a History and Physical was performed, and patient medications and allergies were reviewed. The patient's tolerance of previous anesthesia was also reviewed. The risks and benefits of the procedure and the sedation options and risks were discussed with the patient. All questions were answered, and informed consent was obtained. Prior Anticoagulants: The patient has taken Eliquis (apixaban), last dose was 2 days prior to procedure. ASA Grade Assessment: III - A patient with severe systemic disease. After reviewing the risks and benefits, the patient was deemed in satisfactory condition to undergo the procedure. After obtaining informed consent, the endoscope was passed under direct vision. Throughout the procedure, the patient's blood pressure, pulse, and oxygen saturations were monitored continuously. The Colonoscope was introduced through the mouth, and advanced to the second part of duodenum. The upper GI endoscopy was accomplished without difficulty. The patient tolerated the procedure well. Scope In: 7:07:57 AM Scope Out: 7:15:32 AM Total Procedure Duration Time 0 hours 7 minutes 35 seconds Findings: Esophagitis with no bleeding was found 40 cm from the incisors. Biopsies were taken with a cold forceps for histology. A small hiatal hernia was present. Diffuse mild inflammation characterized by erythema was found in the gastric antrum. Biopsies were taken with a cold forceps for histology. A few sessile polyps with no bleeding and no stigmata of recent bleeding were found on the greater curvature of the stomach. The polyp was removed with a cold biopsy forceps. Resection and retrieval were complete. The examined duodenum was normal. Impression: - Reflux esophagitis. Biopsied. - Small hiatal hernia. - Chronic gastritis. Biopsied. - A few gastric polyps. Resected and retrieved. - Normal examined duodenum. Recommendation: - Await pathology results. -Continue current medications. - Telephone my office for pathology results in 1 week. - Continue present medications. Procedure Code(s): --- Professional --- 43620, Esophagogastroduodenoscopy, flexible, transoral; with biopsy, single or multiple Diagnosis Code(s): --- Professional --- K21.0, Gastro-esophageal reflux disease with esophagitis K44.9, Diaphragmatic hernia without obstruction or gangrene K29.50, Unspecified chronic gastritis without bleeding K31.7, Polyp of stomach and duodenum CPT copyright 2017 [employer]. All rights reserved. The codes documented in this report are preliminary and upon global supply chain director review may be revised to meet current compliance requirements. Ronald Larsen MD 12/21/2022 7:58:35 AM This report has been signed electronically. Number of Addenda: 0 Note Initiated On: 12/21/2022 6:58 AM
--- NOTE | 2022-12-21 08:00 | OP.CCLET_ITS ---
12/21/2022 Lisa Cardenas [address] [id number] Re : Upper GI endoscopy procedure for Billjaz CatalanAngeles Dear Dr. Cardenas This procedure was performed on Wednesday, December 21, 2022. My impressions and recommendations are as follows: Impressions : - Reflux esophagitis. Biopsied. - Small hiatal hernia. - Chronic gastritis. Biopsied. - A few gastric polyps. Resected and retrieved. - Normal examined duodenum. Recommendations : - Await pathology results. -Continue current medications. - Telephone my office for pathology results in 1 week. - Continue present medications. My findings are described in the full procedure note, which is enclosed. If I can be of further assistance, please feel free to contact me at Doctor phone number(s): Work: . Sincerely, Ronald Larsen MD 12/21/2022 7:58:35 AM This report has been signed electronically.
--- NOTE | 2022-12-21 08:07 | OP.COLON_ITS ---
Patient Name: Bill Reynoso Procedure Date: 12/21/2022 7:16 AM Date of : 1945 Age: 77 Procedure: Colonoscopy Indications: High risk colon cancer surveillance: Personal history of colonic polyps Providers: Ronald Larsen MD Referring MD: Ronald Larsen MD Medicines: See the Anesthesia note for documentation of the administered medications Patient Profile: Last Colonoscopy: 2017. Complications: No immediate complications. Procedure: Pre-Anesthesia Assessment: - Prior to the procedure, a History and Physical was performed, and patient medications and allergies were reviewed. The patient's tolerance of previous anesthesia was also reviewed. The risks and benefits of the procedure and the sedation options and risks were discussed with the patient. All questions were answered, and informed consent was obtained. Prior Anticoagulants: The patient has taken Eliquis (apixaban), last dose was 2 days prior to procedure. ASA Grade Assessment: III - A patient with severe systemic disease. After reviewing the risks and benefits, the patient was deemed in satisfactory condition to undergo the procedure. After I obtained informed consent, the scope was passed under direct vision. Throughout the procedure, the patient's blood pressure, pulse, and oxygen saturations were monitored continuously. The Colonoscope was introduced through the anus and advanced to the cecum, identified by appendiceal orifice and ileocecal valve. The colonoscopy was technically difficult and complex due to a redundant colon, significant looping and a tortuous colon. Successful completion of the procedure was aided by applying abdominal pressure. The patient tolerated the procedure well. The quality of the bowel preparation was good. The ileocecal valve was photographed. Scope In: 7:17:51 AM Scope Withdrawal Time 0 hours 10 minutes 10 seconds Scope Out: 7:53:15 AM Total Procedure Duration Time 0 hours 35 minutes 24 seconds Findings: The digital rectal exam findings include non-thrombosed external hemorrhoids, non-thrombosed internal hemorrhoids and internal hemorrhoids that prolapse with straining, but spontaneously regress to the resting position (Grade II). A 7 mm polyp was found in the proximal ascending colon. The polyp was sessile. The polyp was removed with a hot snare. Resection and retrieval were complete. To prevent bleeding post-intervention, one hemostatic clip was successfully placed. There was no bleeding at the end of the procedure. A few diverticula were found in the sigmoid colon. The colon (entire examined portion) was significantly redundant. Advancing the scope required changing the patient to a supine position and using manual pressure. Impression: - Non-thrombosed external hemorrhoids, non-thrombosed internal hemorrhoids and internal hemorrhoids that prolapse with straining, but spontaneously regress to the resting position (Grade II) found on digital rectal exam. - One 7 mm polyp in the proximal ascending colon, removed with a hot snare. Resected and retrieved. Clip was placed. - Diverticulosis in the sigmoid colon. - Redundant colon. Recommendation: - Discharge patient to home. - Resume previous diet. - Continue present medications. - Repeat colonoscopy in 5 years for surveillance based on pathology results. - Telephone my office for pathology results in 1 week. Procedure Code(s): --- Professional --- 50155, Colonoscopy, flexible; with removal of tumor(s), polyp(s), or other lesion(s) by snare technique Diagnosis Code(s): --- Professional --- Z86.010, Personal history of colonic polyps K64.1, Second degree hemorrhoids K64.4, Residual hemorrhoidal skin tags D12.2, Benign neoplasm of ascending colon K57.30, Diverticulosis of large intestine without perforation or abscess without bleeding Q43.8, Other specified congenital malformations of intestine CPT copyright 2017 [employer]. All rights reserved. The codes documented in this report are preliminary and upon reconciling clerk review may be revised to meet current compliance requirements. Ronald Larsen MD 12/21/2022 8:06:51 AM This report has been signed electronically. Number of Addenda: 0 Note Initiated On: 12/21/2022 7:16 AM
--- NOTE | 2022-12-21 08:08 | OP.CCLET_ITS ---
12/21/2022 Lisa Cardenas [address] [id number] Re : Colonoscopy procedure for Bill Mishraler Dear Dr. Cardenas This procedure was performed on Wednesday, December 21, 2022. My impressions and recommendations are as follows: Impressions : - Non-thrombosed external hemorrhoids, non-thrombosed internal hemorrhoids and internal hemorrhoids that prolapse with straining, but spontaneously regress to the resting position (Grade II) found on digital rectal exam. - One 7 mm polyp in the proximal ascending colon, removed with a hot snare. Resected and retrieved. Clip was placed. - Diverticulosis in the sigmoid colon. - Redundant colon. Recommendations : - Discharge patient to home. - Resume previous diet. - Continue present medications. - Repeat colonoscopy in 5 years for surveillance based on pathology results. - Telephone my office for pathology results in 1 week. My findings are described in the full procedure note, which is enclosed. If I can be of further assistance, please feel free to contact me at Doctor phone number(s): Work: . Sincerely, Ronald Larsen MD 12/21/2022 8:06:51 AM This report has been signed electronically.
[2022-12-21] MEDS: Ipratropium/Albuterol Sulfate 3 ML AMPUL.NEB INHALATION (08:47)
== END 2022-12-21 09:51 | disposition home or self-care (01) ==
LOC: EN 05:52 → AC 06:26
PROVIDERS: PCP Internal Medicine; Referring Provider Surgery; Visit Provider Surgery
PROC: 0DJD8ZZ Inspection of Lower Intestinal Tract, Via Natural or Artificial Opening Endoscopic (ICD-10-PCS; CPT 45378; principal; 2022-12-21 06:55)
DX: D12.2 Benign neoplasm of ascending colon (principal); E11.9 Type 2 diabetes mellitus without complications; K64.1 Second degree hemorrhoids; K64.4 Residual hemorrhoidal skin tags; K22.70 Barrett's esophagus without dysplasia; Q43.8 Other specified congenital malformations of intestine; K29.50 Unspecified chronic gastritis without bleeding; K21.00 Gastro-esophageal reflux disease with esophagitis, without bleeding; K44.9 Diaphragmatic hernia without obstruction or gangrene; K31.7 Polyp of stomach and duodenum; E66.9 Obesity, unspecified; J45.909 Unspecified asthma, uncomplicated; E78.00 Pure hypercholesterolemia, unspecified; N40.0 Benign prostatic hyperplasia without lower urinary tract symptoms; I10 Essential (primary) hypertension; Z79.82 Long term (current) use of aspirin; Z79.899 Other long term (current) drug therapy; Z79.01 Long term (current) use of anticoagulants; Z79.84 Long term (current) use of oral hypoglycemic drugs; Z86.010 Personal history of colon polyps; Z80.0 Family history of malignant neoplasm of digestive organs; Z68.34 Body mass index [BMI] 34.0-34.9, adult
CPT/HCPCS: 45385; 43239; 82962; 88305; 88313; 88341; 88342; 94640; J7120; J2405

== ENCOUNTER 2023-10-20 10:33 | Emergency (ER) | payer MEDICARE, OTHER, SELFPAY ==
[2023-10-20 10:34] VITALS: BP 124/92; PULSE 81; RESP 18; TEMP 37.5; O2SAT 93; BMI 33.6
--- NOTE | 2023-10-20 10:46 | RAD_ITS ---
STUDY: X-RAY CHEST REASON FOR EXAM: Male, 77 years old. cough TECHNIQUE: Single AP portable view of the chest. COMPARISON: 11/19/2022 FINDINGS: Poor inspiration with some bibasilar atelectasis. 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 Normal size heart. Normal mediastinum and jr. Normal visualized pulmonary arteries. Normal visualized aortic arch and descending thoracic aorta. Normal visualized thoracic spine. Normal visualized ribs, clavicles, and shoulders. There is no demonstrated abnormality of the visualized soft tissue structures of the upper abdomen. RAD/Chest 1 View (Portable) IMPRESSION: Poor inspiration with some bibasilar atelectasis. Electronically Signed: Jose Guerrero MD at 11:22 EST ,
--- NOTE | 2023-10-20 10:48 | EDS_ITS ---
HPI History of Present Illness Chief Complaint: General Illness Narrative Narrative: 77-year-old male past medical history of diabetes, hypertension, started Jardiance recently over the last week presents with burning with urination, and chills that started today. While he started Jardiance, his blood sugars have been well-controlled around 120. He states he awoke this morning with chills. He has had a cough recently, but is almost chronic he states. He has had dysuria and burning at the beginning of urination, but denies any back pain/kidney pain. His states that she dipped his urine and was positive for nitrates. He states that everything was fine yesterday, but started getting the chills when he awoke this morning. [facility] Medical History Afib Alcohol use Anal fissure Asthma Back pain Bladder disease Cardiology follow-up encounter CPAP (continuous positive airway pressure) dependence Diabetes Dietary restriction Gastric reflux GERD (gastroesophageal reflux disease) High cholesterol History of cardioversion History of echocardiogram History of edema History of stress test Hypertension Injury of head and neck Prostate disease Wears glasses Wears hearing aid Home Medications aspirin 81 mg chewable tablet 81 mg PO DAILY@0800 07/24/13 [History Last Taken 12/18/22] metformin 1,000 mg tablet 500 mg PO BIDCM 07/24/13 [History Last Taken 12/14/16 07:00] metoprolol tartrate 50 mg tablet 25 mg PO BID 07/24/13 [History Last Taken 12/21/22] [id number]-kno-jjvgd acid 0.4 mg-lycopene 300 mcg-lutein 250 mcg tablet (Centrum Silver) 1 ea PO DAILY 07/24/13 [History Last Taken 12/14/16 07:00] tamsulosin 0.4 mg capsule 0.8 mg PO DAILY 07/24/13 [History Last Taken 12/21/22] biotin 5 mg capsule 5 mg PO DAILY 12/14/16 [History Last Taken Unknown] flecainide 100 mg tablet 50 mg PO BID 12/14/16 [History Last Taken 12/21/22] pravastatin 20 mg tablet (Pravachol) 40 mg PO QHS 12/14/16 [History Last Taken Unknown] coenzyme Q10 50 mg chewable tablet 200 mg PO DAILY supplement 10/02/18 [History Last Taken Unknown] levalbuterol tartrate 45 mcg/actuation aerosol inhaler (Xopenex HFA) 1 puff i nhalation Q6H PRN Wheezing 08/25/21 [History Last Taken Unknown] amlodipine 5 mg tablet 5 mg PO DAILY 07/08/22 [History Last Taken 12/21/22] apixaban 5 mg tablet (Eliquis) 5 mg PO BID 07/08/22 [History Last Taken 12/18/22] magnesium oxide 400 mg PO DAILY 07/08/22 [History Last Taken Unknown] finasteride 5 mg tablet 5 mg PO DAILY 11/06/22 [History Last Taken Unknown] fluticasone fur. 100 mcg-umeclid 62.5 mcg-vilant 25 mcg inhalat.powder (Trelegy Ellipta) 1 inh inhalation DAILY 11/06/22 [History Last Taken Unknown] doxazosin 4 mg tablet (Cardura) 4 mg PO QHS 11/19/22 [History Last Taken Unknown] pantoprazole 40 mg tablet,delayed release 40 mg PO BID 12/17/22 [History Last Taken 12/21/22] sucralfate 1 gram tablet (Carafate) 1 g PO BID #60 tabs 12/25/22 [Rx Last Taken Unknown] cephalexin 500 mg capsule 500 mg PO Q6 #40 CAPSULES 10/20/23 [Rx Last Taken Unknown] empagliflozin 10 mg tablet (Jardiance) 10 mg PO DAILY 10/20/23 [History Last Taken Unknown] losartan 100 mg tablet 100 mg PO DAILY 10/20/23 [History Last Taken Unknown] Allergy/AdvReac Type Severity Reaction Status Date / Time house dust mite Allergy Shortness Verified 10/20/23 10:34 of breath adhesive AdvReac Rash Verified 10/20/23 10:34 naproxen [From Naprosyn] AdvReac Nausea Verified 10/20/23 10:34 Family History Mother Colon cancer Hypertension Father Cancer prostate High cholesterol Hypertension Sister Breast cancer Surgical History Hx of colonoscopy Hx of esophagogastroduodenoscopy Hx of local excision of skin lesion Hx of tonsillectomy Social History Smoking Status: Never smoker ROS ROS ED ROS Narrative Constitutional: No fever, positive chills. HEENT: No sore throat. No neck pain. No loss of vision. No rhinorrhea. Cardiovascular: No chest pain. No palpitations. No pedal edema. Respiratory: Positive cough, no shortness of breath. Abdominal: No abdominal pain. No nausea. No vomiting. Genitourinary: Positive dysuria. No hematuria. Mild frequency. Musculoskeletal: No myalgias. No arthralgias. Neurologic: No headaches. No dizziness. No lightheadedness. Skin: No rash. No change in color. Psychiatric: No depression. No anxiety. EXAM Physical Exam Narrative Exam Narrative: Afebrile. Temperature 99.5 ?F vital signs noted. Nontoxic-appearing. HEENT: Normocephalic. Atraumatic. PERRL, EOMI. Neck soft and supple. No point tenderness or step off. Cardiovascular: Regular rate and rhythm. No murmurs, rubs, or gallops appreciated. Respiratory: No tachypnea. Lungs clear to auscultation bilaterally. Gastrointestinal: Abdomen soft, nontender, with normoactive bowel sounds. No rebound or guarding. No CVA tenderness to percussion. Neurological: Awake. Alert. Nonfocal, nonlateralizing. Skin: No rash. Normal color. No pallor. Musculoskeletal: No pedal edema. Full range of motion extremities. Const Vital Signs: 10/20/23 10:34 10/20/23 11:01 Temperature 99.5 F H Temperature Source Temporal Pulse Rate 81 Respiratory Rate 18 Respiratory Effort Normal Non-Labored Respiratory Pattern Normal Blood Pressure 124/92 H Blood Pressure Mean 102 Pulse Ox 93 Oxygen Delivery Method Room Air MDM MDM MDM Narrative Medical decision making narrative: In the differential diagnosis is COVID/influenza/RSV/urinary tract infection. Currently, I have low suspicion for sepsis as he is afebrile here and not tach ycardic. 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 Comprehensive workup was pursued. I do feel a chest x-ray is indicated and he will be swabbed for COVID. Will obtain baseline laboratories including CBC and CMP, along with urinalysis. I reviewed his laboratory work and he has slight elevation in his white count of 11.3 which I think is nonspecific, hemoglobin normal at 13.1, sodium is normal at 141, potassium normal at 3.9. BUN of 22 and creatinine 1.42 consistent with his chronic kidney disease. LFTs are grossly unremarkable. Urinalysis is positive for infection with positive nitrates and 50-100 WBCs. Urine culture was sent. Chest x-ray in 1 view interpreted by myself independently shows no evidence of pneumothorax or consolidation. I reviewed the radiology report which confirms my independent interpretation and comments on atelectasis. I do not feel that he needs pneumonia antibiotics. His respiratory swab is negative for COVID, influenza, and RSV. At this point in time, I do not feel he requires observation or admission. I feel his complicated UTI can be treated with cephalexin as there is resistance to Bactrim and the quinolones on the [facility] 2022 antibiogram. He was given his first dose here and a prescription written to take 4 times a day for the next 10 days. He will follow-up with his primary care provider regarding his diabetic medications. Return instructions to the emergency department were reviewed. Disposition is discharged home in s table condition. History & Record Review Discussion w/independent historian: Patient and Family (Spouse) Additional record(s) reviewed:: Prior ED visit Lab Data Attestation: I reviewed the patient's lab results. Labs: Laboratory Results - last 24 hr 10/20/23 10/20/23 10:40 10:51 WBC 11.3 H RBC 4.44 L Hgb 13.1 Hct 41.5 MCV 93.5 MCH 29.5 MCHC 31.6 L RDW Std Deviation 48.4 H RDW Coeff of Justice 14.1 Plt Count 192 MPV 10.5 Immature Gran % (Auto) 0.300 Neut % (Auto) 80.1 H Lymph % (Auto) 7.5 L [place] % (Auto) 9.4 Eos % (Auto) 2.3 Baso % (Auto) 0.4 Absolute Neuts (auto) 9.1 H Absolute Lymphs (auto) 0.85 Nucleated RBC % 0 Sodium 141 Potassium 3.9 Chloride 110 H Carbon Dioxide 27.0 Anion Gap 4 L BUN 22 H Creatinine 1.42 H Estim Creat Clear Calc 53.25 Est GFR (MDRD) Af Amer 62 Est GFR (MDRD) Non-Af 52 L BUN/Creatinine Ratio 15.5 Glucose 193 H Calcium 9.2 Total Bilirubin 0.70 AST 22 ALT 26 Alkaline Phosphatase 69 Total Protein 7.2 Albumin 3.8 Globulin 3.4 Albumin/Globulin Ratio 1.1 Urine Color Yellow Urine Clarity Sl. Cloudy Urine pH 7.0 Ur Specific [employer] [place] 1.005 Urine Protein 30 H Urine Glucose (UA) 1000 H Urine Ketones Negative Urine Occult Blood 25 H Urine Nitrite Positive H Urine Bilirubin Negative Urine Urobilinogen Normal Ur Leukocyte Esterase 500 H Urine RBC 0 SEEN Urine WBC 50-100 SEEN Ur Squamous Epith Cells 0 SEEN Urine Bacteria 2+ Urine Mucus 0 SEEN Radiography Diagnostic Testing: Clinical Impression(s) from Imaging Studies Chest X-Ray 10/20/23 10:46 IMPRESSION: Poor inspiration with some bibasilar atelectasis. Electronically Signed: Jose Guerrero MD at 11:22 EST , Discharge Plan Triage Chief Complaint: General Illness ED Provider: Cristian Matthews Dx/Rx/DC Orders Clinical Impression: Chills, Acute UTI Instructions: ED Bladder Infection, Male (Adult) Prescriptions: New cephalexin 500 mg capsule 500 mg PO Q6 Qty: 40 0RF No Action finasteride 5 mg tablet 5 mg PO DAILY Trelegy Ellipta 100-62.5-25 mcg blister with device 1 inh inhalation DAILY tamsulosin 0.4 MG capsule 0.8 mg PO DAILY metformin 1,000 MG tablet 500 mg PO BIDCM Patient Comments: 500 in AM , 1000 in evening metoprolol tartrate 50 MG tablet 25 mg PO BID aspirin 81 MG tablet,chewable 81 mg PO DAILY@0800 Centrum Silver 1 EACH tablet 1 ea PO DAILY biotin 5 MG capsule 5 mg PO DAILY flecainide 100 MG tablet 50 mg PO BID pravastatin [Pravachol] 20 MG tablet 40 mg PO QHS coenzyme Q10 50 MG tablet,chewable 200 mg PO DAILY levalbuterol tartrate [Xopenex HFA] 45 mcg/actuation Hfa Aerosol Inhaler 1 puff INHALATION Q6H PRN (Reason: Wheezing) amlodipine 5 mg tablet 5 mg PO DAILY Eliquis 5 mg tablet 5 mg PO BID Rx Instructions: 10 mg twice a day for the first week. Then 5 mg twice a day. magnesium oxide 400 mg magnesium tablet 400 mg PO DAILY pantoprazole 40 MG tablet,delayed release (DR/EC) 40 mg PO BID doxazosin [Cardura] 4 mg Tablet 4 mg PO QHS Jardiance 10 mg tablet 10 mg PO DAILY Patient Comments: TAKE 1 TABLET BY MOUTH ONCE DAILY IN THE MORNING losartan 100 mg tablet 100 mg PO DAILY Patient Comments: TAKE 1 TABLET BY MOUTH EVERY DAY sucralfate [Carafate] 1 gram tablet 1 g PO BID Qty: 60 3RF Primary Care Provider: Lisa Cardenas Referrals: Lisa Cardenas MD [Primary Care Provider] - 1-2 Days if not improving Activity Restrictions/Additional Instructions: Take all the antibiotic as directed. Return with sustained high fever, new or worsening symptoms. Follow-up with your primary care provider regarding your diabetic medications. Disposition Disposition: Home, Self Care Discharge Date/Time: 10/20/23 12:32
[2023-10-20] MEDS: 0.9% Normal Saline (1000mL) 1,000 ML 1000 ML IV (10:57)
[2023-10-20 10:58] LABS: Mucous, Urine 0 SEEN /hpf (<or=2+); Red Blood Cells-Urine 0 SEEN /hpf (0-5); Squamous Epithelial Cells - UA 0 SEEN /hpf (0-5)
[2023-10-20 10:59] LABS: Absolute Lymphocyte Count 0.85 X10^3/uL (0.83-4.51); Absolute Neutrophil Count 9.1 X10^3/uL (2.0-7.7); Basophil# 0.05 X10^3/uL; Basophil% 0.4 % (0-1); Eosinophil# 0.26 X10^3/uL; Eosinophils% 2.3 % (0-5); Hematocrit 41.5 % (40-54); Hemoglobin 13.1 g/dL (13.0-16.5); Lymphocyte # 0.85 X10^3/ul (0.83-4.51); Lymphocyte % 7.5 % (19-41); Mean Corp Hgb Conc 31.6 g/dL (32-36); Mean Corpuscular Hgb 29.5 pg (27.0-32.0); Mean Corpuscular Volume 93.5 fL (80-94); Mean Platelet Vol. 10.5 fl (6.2-12.0); Monocyte# 1.06 X10^3/uL; Monocyte% 9.4 % (0-10); NRBC Flagged by Analyzer 0 % (0-5); Neutrophil # 9.06 X10^3/uL (2.7-7.7); Neutrophil % 80.1 % (47-70); Platelet Count 192 K/mm3 (150-450); RBC Distribution Width CV 14.1 % (11.6-14.6); RBC Distribution Width SD 48.4 fl (35.1-43.9); Red Blood Count 4.44 M/mm3 (4.6-6.2); White Blood Count 11.3 K/mm3 (4.4-11.0)
[2023-10-20 11:09] LABS: Color, Urine Yellow (Yellow); Glucose, Dipstick 1000 mg/dl (Normal); Ketone-Dipstick Negative (Negative); Leukocyte Esterase-Dipstick 500 /ul (Negative); Nitrite-Dipstick Positive (Negative); Occult Blood-Urine 25 /ul (Negative); Protein-Dipstick 30 mg/dl (Negative); Specific Gravity, Urine 1.005 (1.002-1.030); Urine Bilirubin Dipstick Negative (Negative); Urine Clarity Sl. Cloudy (Clear); Urine Urobilinogen Normal (Normal)
[2023-10-20 11:11] LABS: Bacteria 2+ /hpf (None Seen); White Blood Cells 50-100 SEEN /hpf (0-5)
[2023-10-20 11:18] LABS: ALB/GLOB Ratio 1.1 RATIO (0.9-2.4); AST(SGOT) 22 U/L (15-37); Alanine Aminotransfer ALT/SGPT 26 U/L (16-61); Albumin, Serum 3.8 g/dL (3.2-5.0); Alkaline Phosphatase 69 U/L (45-117); Anion Gap 4 (5-15); BUN 22 mg/dL (7-18); BUN/Creat Ratio 15.5 RATIO (10-20); Calcium,Total 9.2 mg/dL (8.5-10.1); Chloride 110 mmol/L (98-107); Creatinine, Serum 1.42 mg/dL (0.70-1.30); EST Glomerular Filtration Rate 52 mL/min (>60); Est Glom Filt Rate - Afr Amer 62 mL/min (>60); Estimated Creatinine Clearance 53.25 ml/min; Globulin 3.4 g/dL (2.2-4.2); Glucose 193 mg/dL (74-106); Potassium 3.9 mmol/L (3.5-5.1); Protein, Total 7.2 g/dL (6.4-8.2); Sodium Level 141 mmol/L (136-145)
--- OUTSIDE RECORDS SUMMARY | 2023-10-20 11:28 | XMS RPT_ITS | CCD ---
Author Name Unknown Address [address] [place] [address] Organization [facility] Care Team Providers Care Superintendent Power Name Role Phone MARI, MATIAS Unavailable Unavailable MARI, MATIAS Unavailable Unavailable MARI, MATIAS Unavailable Unavailable [facility] Unavailable Unavailable MARI, MATIAS Unavailable Unavailable [facility] Unavailable Unavailable MATIAS GUERRA Unavailable Unavailable Carli Hilton MD Unavailable Theresa RAMIREZ, Jo Primary Care Provider aCrli Hilton MD Unavailable Theresa RAMIREZ, [place] Primary Care Provider Carli Hilton MD Unavailable Carli Hilton MD Unavailable Theresa RAMIREZ, [place] Primary Care Provider CARLI HILTON Attending Unavailable GANTA, JO Primary Care Unavailable Theresa RAMIREZ, [place] Primary Care Provider [phone] [place], JO Primary Care Unavailable DENNIS MADDOX Admitting Unavailable DENNIS MADDOX Attending Unavailable CYRIL FELIX Attending Unavailable GANTA, JO Primary Care Unavailable GANTA, JO Primary Care Unavailable KEIKO ALVARADO Attending Unavailable GANTA, JO Primary Care Unavailable CARLI HILTON Attending Unavailable GANTA, JO Primary Care Unavailable NAVEED TYLER Attending Unavailable GANTA, JO Primary Care Unavailable CRISTIAN CUEVAS Referring Unavailable GANTA, JO Primary Care Unavailable FITZ, LEIGHANN Referring Unavailable GANTA, JO Primary Care Unavailable DENNIS MADDOX Referring Unavailable GANTA, JO Primary Care Unavailable OLDER, LEIGHANN Referring Unavailable GANTA, JO Primary Care Unavailable GANTA, JO Primary Care Unavailable CARLI HILTON Attending Unavailable CARLI HILTON Referring Unavailable GANTA, JO Primary Care Unavailable CRISTIAN CUEVAS Attending Unavailable GANTA, JO Primary Care Unavailable OLDER, LEIGHANN Referring Unavailable GANTA, JO Primary Care Unavailable NAVEED TYLER Attending Unavailable GANTA, JO Primary Care Unavailable KANJ, SWAPNA H Referring Unavailable GANTA, JO Primary Care Unavailable MANDI WARD Attending Unavailable OLDERLEIGHANN Referring Unavailable GANTA, JO Primary Care Unavailable OLDERLEIGHANN Attending Unavailable GANTA, JO Primary Care Unavailable YANETKEVALICE M Attending Unavailable YANET, ALICE M Referring Unavailable GANTA, JO Primary Care Unavailable YANET ALICE M Referring Unavailable GANTA, JO Primary Care Unavailable OLDER, LEIGHANN Referring Unavailable GANTA, JO Primary Care Unavailable O'BASSAM, NAVIN Referring Unavailable GANTA, JO Primary Care Unavailable YANET, ALICE M Referring Unavailable GANTA, JO Primary Care Unavailable NAVEED TYLER Referring Unavailable GANTA, JO Primary Care Unavailable KANJ, MOHDANIEL H Attending Unavailable GANTA, JO Primary Care Unavailable MARIE, HAVEN A Referring Unavailable GANTA, JO Referring Unavailable GANTA, JO Primary Care Unavailable MARIE, HAVEN A Attending Unavailable GANTA, JO Primary Care Unavailable THUY VALENZUELA Referring Unavailable GANTA, JO Primary Care Unavailable YANETALICE Attending Unavailable THUY VALENZUELA Referring Unavailable GANTA, JO Primary Care Unavailable SOL CAPPS Attending Unavailable GANTA, JO Primary Care Unavailable DENNIS MADDOX Attending Unavailable GANTA, JO Primary Care Unavailable O'BASSAM, NAVIN Referring Unavailable GANTA, JO Primary Care Unavailable NAVEED TYLER Attending Unavailable GANTA, JO Primary Care Unavailable SHAISTA HOOKS Attending Unavailable GANTA, JO Primary Care Unavailable GANTA, JO Primary Care Unavailable OLDERLEIGHANN Attending Unavailable GANTA, JO Primary Care Unavailable OLDERLEIGHANN Referring Unavailable GANTA, JO Primary Care Unavailable OLDER, LEIGHANN Referring Unavailable GANTA, JO Primary Care Unavailable SOL CAPPS Referring Unavailable GANTA, JO Primary Care Unavailable DENNIS MADDOX Attending Unavailable GANTA, JO Primary Care Unavailable NAVEED TYLER Referring Unavailable GANTA, JO Primary Care Unavailable OLDERLEIGHANN Attending Unavailable GANTA, JO Primary [facility] Unavailable DENNIS MADDOX Attending Unavailable [facility] Primary [facility] Unavailable OLDER, LEIGHANN Referring Unavailable [facility] Primary Care Unavailable OLDER, LEIGHANN Attending Unavailable [facility] Primary [facility] Unavailable MANDI WARD Attending Unavailable OLDER, LEIGHANN Referring Unavailable [facility] Primary Care Unavailable OLDER, LEIGHANN Attending Unavailable [facility] Primary Care Unavailable NAVIN HERBERT Attending Unavailable [facility] Primary [facility] Unavailable ALICE HOLT Attending Unavailable ALICE HOLT Referring Unavailable [facility] Unavailable Allergies Allergy Classification Reported Allergen(s) Allergy Type Date of Onset Reaction(s) Facility (20 sources) Adhesive agent; Translations: [ADHESIVE] Propensity to adverse reactions (disorder) 0 Rash [facility] Repository (20 sources) House dust mite; Translations: [DUST MITES] Propensity to adverse reactions (disorder) 9 [facility] Repository (20 sources) naproxen; Translations: [NAPROXEN] Drug Allergy 5 GI Upset [facility] Repository (20 sources) Seasonal allergy; Translations: [SEASONAL ALLERGIES] Propensity to adverse reactions (disorder) 4 Other: See Comments [facility] Rep[facility] Medications Current Medications Medication Drug Class(es) Dates Sig (Normalized) Sig (Original) apixaban 5 mg oral tablet (20 sources) Factor Xa Inhibitor Start: 09-22-2021 End: 06-17-2024 take 1 tablet by mouth twice daily apixaban (ELIQUIS) 5 mg tab(s) Take 1 tablet by mouth twice daily. 180 tablet 3 06/18/2023 06/17/2024 Active Completed/Discontinued Medications Medication Drug Class(es) Dates Sig (Normalized) Sig (Original) acetaminophen 325 mg / oxyCODONE hydrochloride 5 mg oral tablet (17 sources) Opioid Agonist Start: 06-27-2023 take 1 tablet by mouth four times daily as needed for pain oxyCODONE-acetami nophen (PERCOCET) 5-325 mg tablet Indications: Right groin pain Take 1 tablet by mouth four times a day as needed for pain. 12 tablet 0 06/27/2023 Active Problems Active Problems Problem Classification Problem Date Documented Da te Episodic/Chronic Asthma (20 sources) Persistent asthma, well controlled; Translations: [Other asthma] Onset: 11-08-2011 Chronic Cancer of bladder (3 sources) Malignant tumor of urinary bladder; Translations: [Malignant neoplasm of bladder, unspecified] Onset: 12-27-2022 Chronic Cardiac dysrhythmias (20 sources) Paroxysmal atrial fibrillation; Translations: [Paroxysmal atrial fibrillation] Onset: 06-26-2017 06-26-2017 Chronic Chronic kidney disease (20 sources) Chronic kidney disease stage 3A ; Translations: [Stage 3a chronic kidney disease (HCC)] Onset: 12-27-2022 Chronic Chronic kidney disease (1 source) Chronic kidney disease; Translations: [Stage 3a chronic kidney disease (HCC)] Onset: 12-27-2022 Coronary atherosclerosis and other heart disease (20 sources) Coronary arteriosclerosis; Translations: [Atherosclerotic heart disease of [place] coronary artery without angina pectoris] Onset: 06-21-2023 06-21-2023 Chronic Deficiency and other anemia (3 sources) Anemia; Translations: [Anemia, unspecified] 07-08-2023 Episodic Deficiency and other anemia (1 source) Anemia, unspecified; Translations: [Anemia, unspecified type] Onset: 07-22-2023 Episodic Diabetes mellitus with complications (20 sources) Type 2 diabetes mellitus; Translations: [Type 2 diabetes mellitus with diabetic chronic kidney disease] Onset: 01-02-2023 Chronic Diabetes mellitus without complication (20 sources) Type 2 diabetes mellitus without complication; Translations: [Type 2 diabetes mellitus without complications] Onset: 06-26-2017 06-26-2017 Chronic Diabetes mellitus without complication (1 source) Diabetes mellitus without complication; Translations: [Type 2 diabetes mellitus with stage 3a chronic kidney disease, without long-term current use of insulin ([facility])] Onset: 01-02-2023 Diseases of white blood cells (1 source) 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; Translations: [Other eosinophilia] Chronic Disorders of lipid metabolism (20 sources) Hyperlipidemia; Translations: [Hyperlipidemia, unspecified] Onset: 11-28-2015 11-28-2015 Chronic Essential hypertension (20 sources) Essential hypertension; Translations: [Essential (primary) hypertension] Onset: 08-13-2020 08-13-2020 Chronic Fluid and electrolyte disorders (1 source) Sodium disorder; Translations: [Hyperosmolality and hypernatremia] Episodic Genitourinary symptoms and ill-defined conditions (18 sources) Deficient urine secretion; Translations: [Anuria and oliguria] Onset: 07-24-2023 Episodic Heart valve disorders (20 sources) Rheumatic mitral valve disease, unspecified; Translations: [Mitral valve disorders] 06-04-2005 Chronic Hyperplasia of prostate (20 sources) Benign prostatic hypertrophy with outflow obstruction; Translations: [Benign prostatic hyperplasia with lower urinary tract symptoms] Onset: 12-23-2022 Chronic Nutritional deficiencies (2 sources) Vitamin D deficiency; Translations: [Vitamin D deficiency, unspecified] Onset: 08-28-2023 08-28-2023 Chronic Osteoarthritis (1 source) Osteoarthritis of right knee joint; Translations: [Other unilateral secondary osteoarthritis of knee] 08-02-2023 Chronic Other bone disease and musculoskeletal deformities (1 source) Other specified disorders of bone density and structure, unspecified site; Translations: [Osteopenia, unspecified location] Onset: 09-06-2023 Episodic Other diseases of kidney and ureters (1 source) Abnormal renal function; Translations: [Disorder of kidney and ureter, unspecified] 10-09-2023 Episodic Other diseases of kidney and ureters (1 source) Disorder of kidney and ureter, unspecified; Translations: [Function kidney decreased] Onset: 10-09-2023 Episodic Other ear and sense organ disorders (20 sources) Sensorineural hearing loss, bilateral; Translations: [Sensorineural hearing loss, bilateral] Onset: 07-05-2017 07-05-2017 Chronic Other injuries and conditions due to external causes (5 sources) Allergic condition; Translations: [Allergy, unspecified, subsequent encounter] Episodic Other lower respiratory disease (1 source) Wheezing; Translations: [Wheezing] Episodic Other lower respiratory disease (1 source) Productive cough ; Translations: [Productive cough] Episodic Other lower respiratory disease (1 source) Dyspnea; Translations: [Dyspnea, unspecified] Episodic Other lower respiratory disease (1 source) Dyspnea, unspecified; Translations: [Dyspnea and respiratory abnormalities] Onset: 06-27-2023 Episodic Other lower respiratory disease (1 source) Other abnormalities of breathing; Translations: [Dyspnea and respiratory abnormalities] Onset: 06-27-2023 Episodic Other male genital disorders (3 sources) Male erectile dysfunction, unspecified; Translations: [Impotence of organic origin] Onset: 07-22-2023 07-08-2023 Chronic Other non-traumatic joint disorders (2 sources) Pain in right hip joint; Translations: [Pain in right hip] 05-16-2023 Episodic Other non-traumatic joint disorders (2 sources) Pain in right knee; Translations: [Pain in joint, lower leg] Onset: 08-02-2023 08-02-2023 Episodic Other nutritional; endocrine; and metabolic disorders (20 sources) Obese class I; Translations: [Obesity, unspecified] Onset: 04-03-2021 04-03-2021 Chronic Other nutritional; endocrine; and metabolic disorders (20 sources) Obese class II; Translations: [Obesity, unspecified] Onset: 12-04-2021 12-04-2021 Chronic Other nutritional; endocrine; and metabolic disorders (1 source) Aciduria; Translations: [Disorder of amino-acid metabolism, unspecified] Chronic Other screening for suspected conditions (not mental disorders or infectious disease) (2 sources) Computed tomography result abnormal; Translations: [Abnormal findings on diagnostic imaging of other specified body structures] Onset: 08-28-2023 08-28-2023 Chronic Other upper respiratory disease (20 sources) Allergic rhinitis due to house dust mite; Translations: [Other allergic rhinitis] Onset: 06-14-2022 Chronic Other upper respiratory infections (2 sources) Posterior rhinorrhea; Translations: [Postnasal drip] Episodic Residual codes; unclassified (20 sources) Obstructive sleep apnea syndrome; Translations: [Obstructive sleep apnea (adult) (pediatric)] Onset: 02-20-2012 Chronic Residual codes; unclassified (1 source) Obstructive sleep apnea (adult) (pediatric); Translations: [BROCK (obstructive sleep apnea)] Onset: 08-21-2021 Chronic Retinal detachments; defects; vascular occlusion; and retinopathy (20 sources) Central serous chorioretinopathy; 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, left eye] Onset: 08-03-2016 08-22-2021 Chronic Unclassified (1 source) Unknown / UNK(Unknown) Onset: 06-26-2017 Unclassified (1 source) Acute right-sided low back pain without sciatica; Translations: [Acute right-sided low back pain without sciatica] Onset: 05-06-2023 Viral infection (4 sources) Disease caused by 2019-nCoV; Translations: [COVID-19] Episodic Viral infection (1 source) COVID-19; Translations: [COVID-19 virus infection] Onset: 07-12-2023 Past or Other Problems Problem Classification Problem Date Documented Da te Episodic/Chronic Abdominal pain (10 sources) Right inguinal pain; Translations: [Right lower quadrant pain] Onset: 05-06-2023 05-16-2023 Episodic Allergic reactions (2 sources) Allergy to dust mite protein; Translations: [Other allergy status, other than to drugs and biological substances] Onset: 11-15-2022 Episodic Calculus of urinary tract (7 sources) Kidney stone; Translations: [Calculus of kidney] Onset: 05-06-2023 Episodic Immunizations and screening for infectious disease (3 sources) Needs influenza immunization; Translations: [Encounter for immunization] Onset: 05-29-2023 Episodic Nonspecific chest pain (20 sources) Chest pain; Translations: [Other chest pain] Onset: 08-29-2020 08-29-2020 Episodic Other diseases of kidney and ureters (20 sources) Acquired renal cystic disease; Translations: [Cyst of kidney, acquired] Onset: 11-22-2014 08-21-2021 Episodic Other diseases of kidney and ureters (1 source) Other obstructive and reflux uropathy; Translations: [BPH with urinary obstruction] Onset: 12-23-2022 Episodic Other diseases of kidney and ureters (1 source) Cyst of kidney, acquired; Translations: [Acquired cyst of kidney] Onset: 08-22-2021 Episodic Other lower respiratory disease (20 sources) Paralysis of diaphragm ; Translations: [Disorders of diaphragm] Onset: 08-03-2016 Episodic Other male genital disorders (20 sources) Pain in testicle; Translations: [Testicular pain, unspecified] Onset: 09-10-2016 09-10-2016 Episodic Other non-traumatic joint disorders (1 source) Pain in right hip; Translations: [Right hip pain] Onset: 05-16-2023 Episodic Other screening for suspected conditions (not mental disorders or infectious disease) (20 sources) Measurement finding; Translations: [Elevated prostate specific antigen [PSA]] Onset: 11-30-2015 11-30-2015 Episodic Spondylosis; intervertebral disc disorders; other back problems (20 sources) Cervical radiculopathy; Translations: [Radiculopathy, cervical region] Onset: 06-04-2014 06-04-2014 Episodic Results Test Name Value Interpretation Reference Range Facil ity Vital Signs Date Time Vital Sign Value Performing Clinician Vijay jenkins 10-09-2023 15:37-0500 Body weight 106.14 kg Leighann Older ELEVATOR TROUBLESHOOTER.HABILITATIVE INTERVENTIONIST Work Phone: [facility] 10-09-2023 15:37-0500 Diastolic blood pressure 78 mm[Hg] Leighann Older ELEVATOR TROUBLESHOOTER.HABILITATIVE INTERVENTIONIST Work Phone: [facility] 10-09-2023 15:37-0500 Heart rate 56 /min Leighann Older ELEVATOR TROUBLESHOOTER.HABILITATIVE INTERVENTIONIST Work Phone: [facility] 10-09-2023 15:37-0500 Respiratory rate 16 /min Leighann Older ELEVATOR TROUBLESHOOTER.HABILITATIVE INTERVENTIONIST Work Phone: [facility] 10-09-2023 15:37-0500 SaO2% (BldA) [Mass fraction] 92 % Leighann Older ELEVATOR TROUBLESHOOTER.HABILITATIVE INTERVENTIONIST Work Phone: [facility] 10-09-2023 15:37-0500 Systolic blood pressure 128 mm[Hg] Leighann Older ELEVATOR TROUBLESHOOTER.HABILITATIVE INTERVENTIONIST Work Phone: [facility] 08-28-2023 15:50-0500 Body weight 107.05 kg Leighann Older ELEVATOR TROUBLESHOOTER.HABILITATIVE INTERVENTIONIST Work Phone: [facility] 08-28-2023 15:50-0500 Diastolic blood pressure 62 mm[Hg] Leighann Older ELEVATOR TROUBLESHOOTER.HABILITATIVE INTERVENTIONIST Work Phone: [facility] 08-28-2023 15:50-0500 Heart rate 68 /min Leighann Older ELEVATOR TROUBLESHOOTER.HABILITATIVE INTERVENTIONIST Work Phone: [facility] 08-28-2023 15:50-0500 Respiratory rate 16 /min Leighann Older ELEVATOR TROUBLESHOOTER.HABILITATIVE INTERVENTIONIST Work Phone: [facility] 08-28-2023 15:50-0500 SaO2% (BldA) [Mass fraction] 93 % Leighann Older ELEVATOR TROUBLESHOOTER.HABILITATIVE INTERVENTIONIST Work Phone: [facility] 08-28-2023 15:50-0500 Systolic blood pressure 118 mm[Hg] Leighann Older ELEVATOR TROUBLESHOOTER.HABILITATIVE INTERVENTIONIST Work Phone: [facility] 07-29-2023 14:56-0500 Body weight 104.33 kg Carli Hilton MD Work Phone: [facility] 07-29-2023 14:56-0500 Diastolic blood pressure 83 mm[Hg] Carli Hilton MD Work Phone: [facility] 07-29-2023 14:56-0500 Heart rate 58 /min Carli Hilton MD Work Phone: [facility] 07-29-2023 14:56-0500 Respiratory rate 16 /min Carli Hilton MD Work Phone: [facility] 07-29-2023 14:56-0500 SaO2% (BldA) [Mass fraction] 94 % Carli Hilton MD Work Phone: [facility] 07-29-2023 14:56-0500 Systolic blood pressure 153 mm[Hg] Carli Hilton MD Work Phone: [facility] 07-08-2023 14:35-0500 Body height 176 cm Leighann Older ELEVATOR TROUBLESHOOTER.HABILITATIVE INTERVENTIONIST Work Phone: [facility] 07-08-2023 14:35-0500 Body weight 106.59 kg Leighann Older ELEVATOR TROUBLESHOOTER.HABILITATIVE INTERVENTIONIST Work Phone: [facility] 07-08-2023 14:35-0500 Diastolic blood pressure 82 mm[Hg] Leighann Older ELEVATOR TROUBLESHOOTER.HABILITATIVE INTERVENTIONIST Work Phone: [facility] 07-08-2023 14:35-0500 Heart rate 54 /min Leighann Older ELEVATOR TROUBLESHOOTER.HABILITATIVE INTERVENTIONIST Work Phone: [facility] 07-08-2023 14:35-0500 Respiratory rate 16 /min Leighann Older ELEVATOR TROUBLESHOOTER.HABILITATIVE INTERVENTIONIST Work Phone: [facility] 07-08-2023 14:35-0500 SaO2% (BldA) [Mass fraction] 95 % Leighann Older ELEVATOR TROUBLESHOOTER.HABILITATIVE INTERVENTIONIST Work Phone: [facility] 07-08-2023 14:35-0500 Systolic blood pressure 140 mm[Hg] Leighann Carmichael ELEVATOR TROUBLESHOOTER.HABILITATIVE INTERVENTIONIST Work Phone: [facility] 06-21-2023 14:37-0400 Body height 175.3 cm P[employer] Work Phone: [facility] 06-21-2023 14:37-0400 Body weight 106.59 kg [employer] Work Phone: [facility] 06-06-2023 14:37-0400 Body height 175.3 cm Dennis Maddox MD Work Phone: [facility] 06-06-2023 14:37-0400 Body temperature 97.59 [degF] Dennis Maddox MD Work Phone: [facility] 06-06-2023 14:37-0400 Body weight 106.78 kg Dennis Maddox MD Work Phone: [facility] 06-06-2023 14:37-0400 Diastolic blood pressure 72 mm[Hg] Dennis Maddox MD Work Phone: [facility] 06-06-2023 14:37-0400 Heart rate 60 /min Dennis Maddox MD Work Phone: [facility] 06-06-2023 14:37-0400 SaO2% (BldA) [Mass fraction] 95 % Dennis Maddox MD Work Phone: [facility] 06-06-2023 14:37-0400 Systolic blood pressure 140 mm[Hg] Dennis Maddox MD Work Phone: [facility] 05-29-2023 13:30-0400 Body weight 106.69 kg Sol Umana ELEVATOR TROUBLESHOOTER.HABILITATIVE INTERVENTIONIST Work Phone: [facility] 05-29-2023 13:30-0400 Diastolic blood pressure 58 mm[Hg] Sol Umana ELEVATOR TROUBLESHOOTER.HABILITATIVE INTERVENTIONIST Work Phone: [facility] 05-29-2023 13:30-0400 Heart rate 60 /min Sol Umana ELEVATOR TROUBLESHOOTER.HABILITATIVE INTERVENTIONIST Work Phone: [facility] 05-29-2023 13:30-0400 Respiratory rate 14 /min Sol Umana ELEVATOR TROUBLESHOOTER.HABILITATIVE INTERVENTIONIST Work Phone: [facility] 05-29-2023 13:30-0400 Systolic blood pressure 120 mm[Hg] Sol Umana ELEVATOR TROUBLESHOOTER.HABILITATIVE INTERVENTIONIST Work Phone: [facility] 05-08-2023 09:33-0400 Body weight 106.14 kg Alice Yanet PA-C Work Phone: [facility] 05-08-2023 09:33-0400 Diastolic blood pressure 82 mm[Hg] Alice Yanet PA-C Work Phone: [facility] 05-08-2023 09:33-0400 Heart rate 56 /min Alice Yanet PA-C Work Phone: [facility] 05-08-2023 09:33-0400 Respiratory rate 17 /min Alice Yanet PA-C Work Phone: [facility] 05-08-2023 09:33-0400 SaO2% (BldA) [Mass fraction] 95 % Alice Yanet PA-C Work Phone: [facility] 05-08-2023 09:33-0400 Systolic blood pressure 130 mm[Hg] Alice Yanet PA-C Work Phone: [facility] 05-08-2023 09:23-0400 Body weight 106.14 kg Pulm Wstr Work Phone: [facility] 05-03-2023 07:36-0400 Body weight 107.05 kg Leighann Older ELEVATOR TROUBLESHOOTER.HABILITATIVE INTERVENTIONIST Work Phone: [facility] 05-03-2023 07:36-0400 Diastolic blood pressure 80 mm[Hg] Leighann Older ELEVATOR TROUBLESHOOTER.HABILITATIVE INTERVENTIONIST Work Phone: [facility] 05-03-2023 07:36-0400 Heart rate 56 /min Leighann Older ELEVATOR TROUBLESHOOTER.HABILITATIVE INTERVENTIONIST Work Phone: [facility] 05-03-2023 07:36-0400 Respiratory rate 16 /min Leighann Older ELEVATOR TROUBLESHOOTER.HABILITATIVE INTERVENTIONIST Work Phone: [facility] 05-03-2023 07:36-0400 SaO2% (BldA) [Mass fraction] 94 % Leighann Older ELEVATOR TROUBLESHOOTER.HABILITATIVE INTERVENTIONIST Work Phone: [facility] 05-03-2023 07:36-0400 Systolic blood pressure 144 mm[Hg] Leighann Older ELEVATOR TROUBLESHOOTER.HABILITATIVE INTERVENTIONIST Work Phone: [facility] 03-06-2023 10:06-0400 Body weight 107.96 kg Alice Holt PA-C Work Phone: [facility] 01-28-2023 12:58-0400 Body weight 108.41 kg Carli Hilton MD Work Phone: [facility] 01-28-2023 12:58-0400 Diastolic blood pressure 68 mm[Hg] Carli Hilton MD Work Phone: [facility] 01-28-2023 12:58-0400 Heart rate 60 /min Carli Hilton MD Work Phone: [facility] 01-28-2023 12:58-0400 SaO2% (BldA) [Mass fraction] 94 % Carli Hilton MD Work Phone: [facility] 01-28-2023 12:58-0400 Systolic blood pressure 122 mm[Hg] Carli Hilton MD Work Phone: [facility] 01-02-2023 14:16-0400 Diastolic blood pressure 76 mm[Hg] Leighann Older ELEVATOR TROUBLESHOOTER.HABILITATIVE INTERVENTIONIST Work Phone: [facility] 01-02-2023 14:16-0400 Systolic blood pressure 120 mm[Hg] Leighann Older ELEVATOR TROUBLESHOOTER.HABILITATIVE INTERVENTIONIST Work Phone: [facility] 01-02-2023 13:57-0400 Body weight 108.86 kg Leighann Older ELEVATOR TROUBLESHOOTER.HABILITATIVE INTERVENTIONIST Work Phone: [facility] 01-02-2023 13:57-0400 Heart rate 56 /min Leighann Older ELEVATOR TROUBLESHOOTER.HABILITATIVE INTERVENTIONIST Work Phone: [facility] 01-02-2023 13:57-0400 Respiratory rate 16 /min Leighann Carmichael APRN.HABILITATIVE INTERVENTIONIST Work Phone: [facility] 11-15-2022 13:02-0400 Body weight 108.86 kg Alice Yanet PA-C Work Phone: [facility] 11-15-2022 13:02-0400 Diastolic blood pressure 90 mm[Hg] Alice Yanet PA-C Work Phone: [facility] 11-15-2022 13:02-0400 Heart rate 65 /min Alice Yanet PA-C Work Phone: [facility] 11-15-2022 13:02-0400 Respiratory rate 15 /min Alice Yanet PA-C Work Phone: [facility] 11-15-2022 13:02-0400 SaO2% (BldA) [Mass fraction] 94 % Alice Yanet PA-C Work Phone: [facility] 11-15-2022 13:02-0400 Systolic blood pressure 148 mm[Hg] Alice Yanet PA-C Work Phone: [facility] 11-15-2022 13:01-0400 Body weight 108.86 kg Pulm Wstr Work Phone: [facility] 10-31-2022 14:18-0500 Body weight 108.41 kg Haven Marie MD Work Phone: [facility] 10-31-2022 14:18-0500 Diastolic blood pressure 71 mm[Hg] Haven Marie MD Work Phone: [facility] 10-31-2022 14:18-0500 Heart rate 55 /min Haven Marie MD Work Phone: [facility] 10-31-2022 14:18-0500 SaO2% (BldA) [Mass fraction] 92 % Haven Marie MD Work Phone: [facility] 10-31-2022 14:18-0500 Systolic blood pressure 142 mm[Hg] Haven Marie MD Work Phone: [facility] 09-17-2022 13:46-0500 Body height 175.3 cm Thuy Valenzuela MD Work Phone: [facility] 09-17-2022 13:46-0500 Body weight 109.32 kg Thuy Valenzuela MD Work Phone: [facility] 09-17-2022 13:46-0500 Diastolic blood pressure 70 mm[Hg] Thuy Valenzuela MD Work Phone: [facility] 09-17-2022 13:46-0500 Heart rate 62 /min Thuy Valenzuela MD Work Phone: [facility] 09-17-2022 13:46-0500 Respiratory rate 14 /min Thuy Valenzuela MD Work Phone: [facility] 09-17-2022 13:46-0500 SaO2% (BldA) [Mass fraction] 95 % Thuy Valenzuela MD Work Phone: [facility] 09-17-2022 13:46-0500 Systolic blood pressure 128 mm[Hg] Thuy Valenzuela MD Work Phone: [facility] 08-02-2022 11:17-0500 Body weight 110.22 kg Haven Marie MD Work Phone: [facility] 08-02-2022 11:17-0500 Diastolic blood pressure 70 mm[Hg] Hvaen Marie MD Work Phone: [facility] 08-02-2022 11:17-0500 Heart rate 54 /min Haven Marie MD Work Phone: [facility] 08-02-2022 11:17-0500 SaO2% (BldA) [Mass fraction] 96 % Haven Marie MD Work Phone: [facility] 08-02-2022 11:17-0500 Systolic blood pressure 138 mm[Hg] Haven Marie MD Work Phone: [facility] 07-16-2022 15:07-0500 Body weight 110.22 kg Alyssia Ileana ELEVATOR TROUBLESHOOTER.HABILITATIVE INTERVENTIONIST Work Phone: [facility] 07-16-2022 15:07-0500 Diastolic blood pressure 80 mm[Hg] Alyssiajay jay Tejeda APRN.HABILITATIVE INTERVENTIONIST Work Phone: [facility] 07-16-2022 15:07-0500 Heart rate 58 /min Alyssiajay jay Tejeda APRN.HABILITATIVE INTERVENTIONIST Work Phone: [facility] 07-16-2022 15:07-0500 SaO2% (BldA) [Mass fraction] 93 % Alyssia Ileana HA.HABILITATIVE INTERVENTIONIST Work Phone: [facility] 07-16-2022 15:07-0500 Systolic blood pressure 124 mm[Hg] Alyssia Ileana HA.HABILITATIVE INTERVENTIONIST Work Phone: [facility] 06-14-2022 08:31-0400 Body height 175.3 cm Haven Marie MD Work Phone: [facility] 06-14-2022 08:31-0400 Body weight 110.68 kg Haven Marie MD Work Phone: [facility] 06-14-2022 08:31-0400 Diastolic blood pressure 78 mm[Hg] Haven Marie MD Work Phone: [facility] 06-14-2022 08:31-0400 Heart rate 57 /min Haven Marie MD Work Phone: [facility] 06-14-2022 08:31-0400 SaO2% (BldA) [Mass fraction] 94 % Haven Marie MD Work Phone: [facility] 06-14-2022 08:31-0400 Systolic blood pressure 160 mm[Hg] Haven Marie MD Work Phone: [facility] 05-03-2022 10:09-0400 Body weight 110.22 kg Alice Holt PA-C Work Phone: [facility] 05-03-2022 10:08-0400 Body weight 110.22 kg Respiratory Wstr Work Phone: [facility] 04-02-2022 13:53-0400 Body height 177.8 cm Alice Yanet PA-C Work Phone: [facility] 04-02-2022 13:53-0400 Body weight 108.86 kg Alice Yanet PA-C Work Phone: [facility] 04-02-2022 13:53-0400 Heart rate 63 /min Alice Yanet PA-C Work Phone: [facility] 04-02-2022 13:53-0400 Respiratory rate 12 /min Alice Yanet PA-C Work Phone: [facility] 04-02-2022 13:53-0400 SaO2% (BldA) [Mass fraction] 93 % Alice Yanet PA-C Work Phone: [facility] 01-02-2022 15:11-0400 Diastolic blood pressure 82 mm[Hg] Carli Hilton MD Work Phone: [facility] 01-02-2022 15:11-0400 Systolic blood pressure 148 mm[Hg] Carli Hilton MD Work Phone: [facility] 01-02-2022 14:52-0400 Body height 177.8 cm Carli Hilton MD Work Phone: [facility] 01-02-2022 14:52-0400 Body weight 110.68 kg Carli Hilton MD Work Phone: [facility] 01-02-2022 14:52-0400 Heart rate 58 /min Carli Hilton MD Work Phone: [facility] 01-02-2022 14:52-0400 SaO2% (BldA) [Mass fraction] 94 % Carli Hilton MD Work Phone: [facility] 01-01-2022 09:53-0400 Diastolic blood pressure 81 mm[Hg] Naveed Tyler MD Work Phone: [facility] 01-01-2022 09:53-0400 Heart rate 63 /min Naveed Tyler MD Work Phone: [facility] 01-01-2022 09:53-0400 Systolic blood pressure 156 mm[Hg] Naveed Tyler MD Work Phone: [facility] 12-04-2021 14:35-0400 Body weight 109.77 kg Lyle Nolasco MD Work Phone: [facility] Encounters Encounter Date Encounter Type Care Provider Facility Start: 10-15-2023 Refill Jo Rodgers Work Phone: [facility] Procedures Date Procedure Procedure Detail Performing Clinician Start: 10-10-2023 Echocardiography JO WOODS Start: 08-01-2023 Urnls dip stick/tabl et rgnt auto w/o microscopy Naveed Tyler MD Work Phone: Start: 05-29-2023 INFLUENZA VACCINE, P RSV FREE, AGE 65+ YR, HIGH DOSE, QUADRIVALENT (FLUZONE HIGH-DOSE) Sol Dong ELEVATOR TROUBLESHOOTER.HABILITATIVE INTERVENTIONIST Work Phone: Start: 05-22-2023 Us retroperitoneal r eal time w/image complete Navin PRICE-Lesly Work Phone: Start: 05-16-2023 Radex hip unilateral with pelvis 2-3 views Leighann Carmichael ELEVATOR TROUBLESHOOTER.HABILITATIVE INTERVENTIONIST Work Phone: Start: 05-08-2023 Nitric oxide gas determination Alice CRUZC Work Phone: Start: 05-03-2023 Urnls dip stick/tabl et rgnt auto w/o microscopy Leighann Carmichael ELEVATOR TROUBLESHOOTER.HABILITATIVE INTERVENTIONIST Work Phone: Start: 04-22-2023 HEARING TEST/AUDIOGRAM Mandi Yonis Ward ASHIA Work Phone: Start: 02-21-2023 Radiologic exam abdo men 3+ views Navin PRICE-Lesly Work Phone: Start: 01-08-2023 Us retroperitoneal r eal time w/image complete Naveed Tyler MD Work Phone: Start: 12-27-2022 Urnls dip stick/tabl et rgnt auto w/o microscopy Bulk Order Provider Start: 12-21-2022 Colonoscopy Naveed dos santos MD Work Phone: Start: 11-15-2022 Nitric oxide gas determination Thuy Valenzuela MD Work Phone: Start: 09-17-2022 Nitric oxide gas determination Thuy Valenzuela MD Work Phone: Start: 06-14-2022 ALLERGEN SKIN TEST-I NHALENT 18 Haven Marie MD Work Phone: Start: 06-14-2022 Intracutaneous tests w/allergenic extracts Haven Marie MD Work Phone: Start: 06-14-2022 INFLUENZA SEASONAL QUADRIVALENT HIGH DOSE AGE 65+ Haven Marie MD Work Phone: Start: 05-04-2022 Urnls dip stick/tabl et rgnt auto w/o microscopy Navin Herbert PA-C Work Phone: Start: 05-03-2022 Nitric oxide gas determination Alice Holt PA-C Work Phone: Start: 04-02-2022 Nitric oxide gas determination Alice Holt PA-C Work Phone: Start: 03-27-2022 Radiologic exam chest 2 views Leighann Carmichael APRN.HABILITATIVE INTERVENTIONIST Work Phone: Start: 03-22-2022 Us retroperitoneal r eal time w/image complete Naveed Tyler MD Work Phone: Start: 01-01-2022 Urnls dip stick/tabl et rgnt auto w/o microscopy Bulk Order Provider Start: 03-23-2021 Adult depression scr eening assessment Lyle Nolasco MD Work Phone: Start: 11-11-2017 Colonoscopy Lyle hansen MD Work Phone: Plan of Treatment Date Care Activity Detail Author Start: 12-22-2027 Colonoscopy COLONOSCOPY [facility] Start: 12-22-2027 COLORECTAL CANCER SCREENING COLORECTAL CANCER SCREENING [facility] Start: 12-22-2027 Screening for malignant neoplasm of colon [facility] Start: 10-14-2026 Urine microalbumin profile [facility] Start: 10-09-2024 Annual PCP Team Chronic Disease Visit Annual PCP Team Chronic Disease Visit [facility] Start: 10-09-2024 BP Controlled (<130/80) BP Controlled (<130/80) [facility] Start: 10-07-2024 Creatinine measurement Serum Creatinine [facility] Start: 08-29-2024 Screening for malignant neoplasm of colon Fecal Occult Blood [facility] Start: 08-28-2024 Annual PCP Team Chronic Disease Visit Annual PCP Team Chronic Disease Visit [facility] Start: 08-28-2024 BP Controlled (<130/80) BP Controlled (<130/80) [facility] Start: 08-28-2024 Complete blood count Hemoglobin/Hematocrit [facility] Start: 07-29-2024 Hepatitis B screening Urine Albumin:Creatinine Ratio [facility] Start: 07-22-2024 Hepatitis B surface antibody level LDL Cholesterol [facility] Start: 07-11-2024 End: 10-10-2024 Prostate specific Ag [Mass/volume] in Serum or Plasma PSA/PROSTSPECAG DIAG Lab Routine BPH with urinary obstruction Expected: 07/11/2024, Expires: 10/10/2024 [facility] Work Phone: Immunizations Immunization Date Immunization Notes Care Provider [place] 05-29-2023 influenza (HD-IIV4) vaccine, age 65+ yr, high dose, quadrivalent, PF (FLUZONE HIGH-DOSE) Sol Umana APRN.HABILITATIVE INTERVENTIONIST Work Phone: [facility] 06-14-2022 influenza, high-dose , quadrivalent vaccine (FLUZONE HIGH DOSE QUADRIVALENT) Haven Marie MD Work Phone: [facility] 06-14-2022 influenza virus vaccine, unspecified formulation Pulm Wstr Work Phone: [facility] 06-20-2021 influenza, high dose seasonal, preservative-free Lyle Nolasco MD Work Phone: [facility] Work Phone: 11-08-2020 COVID-19 vaccine, fu ll dose (MODERNA) Lyle Nolasco MD Work Phone: [facility] Work Phone: 10-11-2020 COVID-19 vaccine, fu ll dose (MODERNA) Lyle Nolasco MD Work Phone: [facility] Work Phone: 06-17-2020 influenza, high-dose , quadrivalent vaccine (FLUZONE HIGH DOSE QUADRIVALENT) Lyle Nolasco MD Work Phone: [facility] Work Phone: 07-06-2019 influenza, high dose seasonal, preservative-free Lyle Nolasco MD Work Phone: [facility] 06-05-2018 influenza, high dose seasonal, preservative-free Lyle Nolasco MD Work Phone: [facility] Work Phone: 06-26-2017 influenza, high dose seasonal, preservative-free Lyle Nolasco MD Work Phone: [facility] 10-14-2016 tetanus toxoid, redu edis diphtheria toxoid, and acellular pertussis vaccine, adsorbed Lyle Nolasco MD Work Phone: [facility] 05-18-2016 influenza, high dose edison, preservative-free Lyle Nolasco MD Work Phone: [facility] 02-03-2016 pneumococcal polysaccharide vaccine, 23 valent Lyle Nolasco MD Work Phone: [facility] Work Phone: 06-30-2015 influenza, high dose edison, preservative-free Lyle Nolasco MD Work Phone: [facility] Work Phone: 11-29-2014 pneumococcal conjuga te vaccine, 13 valent Lyle Nolasco MD Work Phone: [facility] 09-04-2014 pneumococcal polysaccharide vaccine, 23 valent Respiratory Wstr Work Phone: [facility] Work Phone: 06-10-2014 influenza, seasonal, injectable Lyle Nolasco MD Work Phone: [facility] Work Phone: 05-26-2013 influenza virus vaccine, unspecified formulation Lyle Nolasco MD Work Phone: [facility] 07-01-2012 influenza virus vaccine, unspecified formulation Lyle Nolasco MD Work Phone: [facility] 06-26-2011 influenza virus vaccine, unspecified formulation Lyle Nolasco MD Work Phone: [facility] 06-10-2010 influenza virus vaccine, unspecified formulation Lyle Nolasco MD Work Phone: [facility] Work Phone: 07-13-2009 influenza virus vaccine, unspecified formulation Lyle Nolasco MD Work Phone: [facility] Work Phone: 07-12-2009 zoster vaccine, live Lyle Nolasco MD Work Phone: [facility] 07-02-2008 influenza virus vaccine, unspecified formulation Lyle Nolasco MD Work Phone: [facility] Work Phone: 05-26-2008 tetanus and diphther ia toxoids, adsorbed, preservative free, for adult use (2 Lf of tetanus toxoid and 2 Lf of diphtheria toxoid) Lyle Nolasco MD Work Phone: [facility] Work Phone: 06-27-2007 influenza virus vaccine, unspecified formulation Lyle Nolasco MD Work Phone: [facility] 07-26-2006 influenza virus vaccine, unspecified formulation Lyle Nolasco MD Work Phone: [facility] 07-03-2005 influenza virus vaccine, unspecified formulation Lyle Nolasco MD Work Phone: [facility] Work Phone: 06-26-2004 pneumococcal polysaccharide vaccine, 23 valent Lyle Nolasco MD Work Phone: [facility] Work Phone: 10-25-1999 tetanus and diphther ia toxoids, not adsorbed, for adult use Lyle Nolasco MD Work Phone: [facility] Work Phone: Payers Date Payer Category Payer Private Health Insurance EHP AET NA EHP RETIREE OVER 65 / EHP CC Retiree Over 65 [id number] 2021-Present [address] [place] [address] EPO [id number] 2021 Private Health Insurance [id number] 2021 Unknown [id number] 2012 Medicare MEDICARE MEDICAR E A AND B [id number] 2012-Present [phone] [place] [address] Medicare [id number] 2012 Medicare MEDICARE MEDICAR E A AND B [id number] 2012-Present [phone] [place] [address] Medicare [id number] 2012 Medicare [id number] Medicare [id number] Social History Date Type Detail Facility Start: 04-02-2022 Tobacco smoking stat [facility] Never smoked tobacco [facility] Work Phone: Start: 12-04-2021 End: 09-25-2023 Alcohol intake Current drinker of alcohol (finding) [facility] Start: 03-23-2021 History SDOH Alcohol Frequency 3 [facility] Start: 03-23-2021 End: 06-28-2022 History SDOH Alcohol Std Drinks 1 [facility] Start: 03-29-2021 History SDOH Alcohol Comment once every 2 weeks [facility] Start: 03-23-2021 End: 06-28-2022 History SDOH Social Connections Phone 2 [facility] Start: 03-23-2021 History SDOH Social Connections Get Together 98 [facility] Start: 03-23-2021 History SDOH Financial 5 [facility] Start: 03-23-2021 Education 19 [facility] Start: 07-26-2016 End: 04-02-2022 Tobacco Comment No one in household smokes. [facility] Start: 1945 Sex Assigned At Not on file [facility] Start: 11-25-2021 End: 07-20-2022 Exposure to SARS-CoV-2 (event) Not sure [facility] Start: 02-26-2022 End: 03-21-2022 Exposure to SARS-CoV-2 (event) Unable to assess [facility] Work Phone: Start: 04-02-2022 Tobacco use and exposure Smoke less tobacco non-user [facility] Start: 03-23-2021 End: 12-27-2022 History of Social function [facility] Start: 03-23-2021 End: 12-27-2022 Social connection and isolation panel [facility] How often do you get together with friends or relatives? Patient refused [facility] Do you belong to any clubs or organizations such as zoroastrian groups, unions, fraternal or athletic groups, or school groups? No [facility] Are you now , , , , never or living with a partner? [facility] How often to you hav e a drink containing alcohol? 2-4 times a month [facility] How many standard dr inks containing alcohol do you have on a typical day? 1 or 2 [facility] How often do you hav e 6 or more drinks on 1 occasion? Never [facility] Do you feel stress - tense, restless, nervous, or anxious, or unable to sleep at night because your mind is troubled all the time - these days [OSQ] Only a little [facility] (I/We) worried wheth er (my/our) food would run out before (I/we) got money to buy more. Never true [facility] Start: 02-13-2021 Gender identity Identifies as male gender (finding) [facility] Medical Equipment Procedure Code Equipment Code Equipment Origin al Text Equipment Identifier Dates Start: 07-02-2016 End: 10-15-2023 Clinical Notes 08-06-2014 to 10-15-2023 Telephone Encounter - Anju Ellis LPN - 10/15/2023 4:53 PM ESTTelephone Encounter - Kimberley Bella - 10/15/2023 3:36 PM ESTPatient InstructionsLeighann Carmichael APRN.HABILITATIVE INTERVENTIONIST - 10/09/2023 3:51 PM EST Note Date & Type Note Facility 10-15-2023 Miscellaneous Notes Patient has been identified by name and date of : No Patient phones for refill(s): Requested Prescriptions Pending Prescriptions Disp Refills Lancets lancets 100 Each 11 Sig: Test blood sugar(s) once times daily. Dx: Type 2 DM - Controlled E11.9 Insulin: No Date of last office visit in primary care: 10/09/2023 Date of next office visit in primary care: 11/20/2023 Please advise. Thank you. Anju Ellis LPN. Patient has been identified by name and date of : Yes Requested Prescriptions Pending Prescriptions Disp Refills Lancets lancets 100 Each 11 Sig: Test blood sugar(s) once times daily. Dx: Type 2 DM - Controlled E11.9 Insulin: No RX INSTRUCTIONS: Patient aware RX will be sent to pharmacy. No need to notify patient. Kimberley Mast\ documented in this encounter [facility] 10-09-2023 Note [facility] 10-09-2023 Leighann Gomez APRN.HABILITATIVE INTERVENTIONIST - 10/09/2023 3:58 PM EST Once jardiance is started. Start decreasing amount of metformin. Take 2 pills in Am and 1 in PM. After a few weeks, if blood sugar controlled you can decrease to 1 tablet twice a day. documented in this encounter [facility] 10-09-2023 History of Present illness Narrative CC: Patient presents with: Recheck: Follow up bloodwork HPI Bill Reynoso is a 77 year old male who presents today for follow up. DIABETES MELLITUS: Mr. Reynoso denies excessive thirst or increased frequency of urination, chest pain or dyspnea , numbness, tingling or pain in extremities, new or unusual visual symptoms, low sugar/hypoglycemic reactions, weight loss/gain, lightheadedness/dizziness, and bowel changes/loose stools. Follows a diabetic diet most of the time. He is compliant with medication(s) and is tolerating med(s) without any side effects. He reports checking his glucose on a once a day schedule with sugars in the fasting 90s-120s range. Patient's last HgA1C was Hemoglobin A1C (%) Date Value 10/07/2023 6.8 07/04/2023 7.0 03/21/2021 6.9 09/29/2020 6.9 Hemoglobin A1C (POCT) (%) Date Value 09/22/2021 6.6 ) Last Ophthalmology exam was within the past 12 months CKD: GFR with recent decrease. Patient avoids ibuprofen, advil, aleve, or motrin. 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 Elevated prostate specific antigen (PSA) 11/22/2014 Family history of malignant neoplasm of gastrointestinal tract History of tear of ACL (anterior cruciate ligament) 1989 right knee Internal hemorrhoids without mention of complication Mitral valve disorders(424.0) Obstructive sleep apnea CPAP Other symptoms involving digestive system(787.99) Personal history of colonic polyps Colon polyps Snoring Unspecified essential hypertension PAST SURGICAL HISTORY Procedure Laterality Date ADENOIDECTOMY PRIMARY <AGE 14 Adenoidectomy CARDIOVERSION June 2021 CATARACT EXTRACTION HX Bilateral COLONOSCOPY FLX DX W/COLLJ SPEC WHEN PFRMD 12/21/2002 Colonoscopy COLONOSCOPY FLX DX W/COLLJ SPEC WHEN PFRMD 05/08/2007 Colonoscopy COLONOSCOPY FLX DX W/COLLJ SPEC WHEN PFRMD 06/05/2010 COLONOSCOPY FLX DX W/COLLJ SPEC WHEN PFRMD 09/07/2013 Repeat 4 years for screening COLONOSCOPY FLX DX W/COLLJ SPEC WHEN PFRMD 11/11/2017 Colonoscopy ESOPHAGOGASTRODUODENOSCOPY TRANSORAL DIAGNOSTIC 05/08/2007 EGD PAST SURGICAL HISTORY OF anal fissurectomy PAST SURGICAL HISTORY OF 2019 cyst removed behind left ear PAST SURGICAL HISTORY OF 06/2022 cardioversion REMV CATARACT EXTRACAP,INSERT LENS SIGMOIDOSCOPY FLX DX W/COLLJ SPEC BR/WA IF PFRMD 08/01/2004 Sigmoidoscopy TONSILLECTOMY PRIMARY/SECONDARY <AGE 14 Tonsillectomy ALLERGIES Adhesive, Dust Mites, and Naprosyn [Naproxen] MEDICATIONS metFORMIN ER (GLUCOPHAGE XR) 500 mg 24 hr tablet TAKE 2 TABLETS BY MOUTH TWICE DAILY BEFORE MEALS. pravastatin (PRAVACHOL) 40 mg tablet Take 1 tablet by mouth daily at bedtime. metoprolol succinate ER (TOPROL XL) 25 mg 24 hr tablet Take 0.5 tablets by mouth once daily. blood sugar diagnostic (ACCU-CHEK GUIDE TEST STRIPS) test strip Check blood sugar once daily. DX: E11.22 Insulin: No piufejbnqdk-pbcagrops-gnymfbqj (TRELEGY ELLIPTA) 200-62.5-25 mcg inhalation powder Inhale 1 Puff as instructed once daily. losartan (COZAAR) 100 mg tablet Take 1 tablet by mouth once daily. Tadalafil (CIALIS) 10 mg tablet Take 1 tablet by mouth once daily as needed. Take 1-2 hours before sexual activity. oxyCODONE-acetaminophen (PERCOCET) 5-325 mg tablet Take 1 tablet by mouth four times a day as needed for pain. (Patient not taking: Reported on 09/25/2023) apixaban (ELIQUIS) 5 mg tab(s) Take 1 tablet by mouth twice daily. sucralfate (CARAFATE) 1 gram tablet Take 1 tablet by mouth two times a day. pantoprazole DR (PROTONIX) 40 mg tablet Take 1 tablet by mouth twice daily. flecainide (TAMBOCOR) 100 mg tablet TAKE ONE TABLET BY MOUTH TWICE DAILY tamsulosin (FLOMAX) 0.4 mg TAKE 2 CAPSULES BY MOUTH EVERY DAY 1/2 HOUR AFTER SAME MEAL EVERY DAY- MAXIMUM 0.8MG DAILY finasteride (PROSCAR) 5 mg tablet Take 1 tablet by mouth once daily. amLODIPine (NORVASC) 5 mg tablet Take 1 tablet by mouth once daily. levalbuterol tartrate HFA (XOPENEX HFA) 45 mcg/actuation inhaler Inhale 1-2 Puffs as instructed every 4 hours as needed for wheezing/shortness of breath. doxazosin (CARDURA) 4 mg tablet Take 1 tablet by mouth once daily. Lancing Device with Lancets (ACCU-CHEK MULTICLIX LANCET) 1 Each once daily. Blood Glucose Control High and Low (ACCU-CHEK GUIDE L1-L2 CTRL HAYDE) soln 1 Each as needed. Lancets lancets Test blood sugar(s) once times daily. Dx: Type 2 DM - Controlled E11.9 Insulin: No CPAP AutoPAP 12-20 cmH2O, nasal mask, humidity, filters. Lifetime supplies. Dx: 327.23. Fax compliance rpt to [facility] in 6 weeks. magnesium oxide (MAG-OXIDE ORAL) Take 400 mg by mouth once daily. BIOTIN ORAL Take by mouth. (Patient not taking: Reported on 09/25/2023) COQ10, LIPOSOMAL UBIQUINOL, ORAL Take by mouth once daily. Take for two weeks then restart statin. multivitamins w-minerals/lut(CENTRUM SILVER TAB) Take one(1) tablet daily. ASPIRIN 81 MG TAB Take by mouth once daily. FAMILY HISTORY Problem Relation Age of Onset Colon Cancer Mother Hypertension Mother Cancer Father Prostate Hypertension Father Colon Cancer Sister Breast Cancer Sister Clotting Disorder No Family History Anesthesia Problems No Family History Malig Hyperthermia No Family History Social History Tobacco Use Smoking status: Never Smokeless tobacco: Never Tobacco comments: No one in household smokes. Vaping Use Vaping Use: Never used Substance Use Topics Alcohol use: Yes Alcohol/week: 1.0 - 2.0 standard drink of alcohol Types: 1 - 2 Cans of Beer (12oz) per week Comment: once every 2 weeks Drug use: No PHYSICAL EXAM BP 128/78 Pulse (!) 56 Resp 16 Wt 106.1 kg (234 lb) SpO2 92% BMI 34.56 kg/m General Appearance: well appearing, in no acute distress, alert Lungs: Lungs clear to auscultation. No wheezing, rhonchi, rales. Heart: RRR without murmur, gallop, or rubs. No ectopy Health maintenance reviewed with patient: Advance Directive Discussion due on 08/26/2023 Covid-19 Vaccine( season) due on 05/29/2024 BP Controlled (<130/80) due on 01/03/2024 HbA1C due on 04/06/2024 Dilated Retinal Exam due on 05/22/2024 Diabetic Foot Exam due on 07/08/2024 LDL Cholesterol due on 07/22/2024 Urine Albumin:Creatinine Ratio due on 07/29/2024 Annual PCP Team Chronic Disease Visit due on 08/28/2024 Hemoglobin/Hematocrit due on 08/28/2024 Serum Creatinine due on 10/07/2024 DTaP,Tdap,Td Vaccine(2 - Td or Tdap) due on 10/14/2026 Colorectal Cancer Screening due on 12/22/2027 Spirometry Completed Influenza Vaccine Completed Depression Assessment Completed RSV Vaccine Completed Hepatitis C Screening Completed Shingrix Vaccine Completed Pneumococcal Vaccine: 65+ Completed DATA REVIEWED: Most recent labs ASSESSMENT/PLAN: 1. Controlled type 2 diabetes mellitus without complication, without long-term current use of insulin (HCC) - ICD9: 250.00, ICD10: E11.9 (primary diagnosis) - Controlled with kidney function need to decrease metformin and adding jardiance - follow up in 4-6 weeks. - Blood glucose monitoring on a once daily schedule - Counseled on healthy diet and regular exercise - Discussed need for and benefit of weight loss. BMI 34.56 kg/(m^2) 2. Function kidney decreased - ICD9: 593.9, ICD10: N28.9 As above - CBC + DIFF - BASIC METABOLIC PNL 3. Anemia, unspecified type - ICD9: 285.9, ICD10: D64.9 - previously anemic after hernia repair, asymptomatic but would like to check it again. - CBC + DIFF - BASIC METABOLIC PNL Prescription instructions reviewed with patient as applicable. Potential red flag symptoms discussed with the patient. Reviewed appropriate action plan to take if red flag symptoms occur. Patient agreeable to treatment plan. Leighann Carmichael APRN.CNP documented in this encounter [facility] 09-25-2023 Note [facility] 09-25-2023 Miscellaneous Notes Pharmacist Refill Authorization Review Name: Bill Reynoso Date: 09/25/2023 Time: 12:14 PM Refill authorization request(s) received and reviewed under effective consult agreement. Upon review, did confirm that an active patient-provider relationship exists and that the prescriber is a participating physician under the consult agreement. Last office visit in this department: 08/28/2023 Leighann Carmichael APRN.CNP Last [facility] health visit in this department: 06/28/2022 Leighann Carmichael APRN.CNP Next appointment in this department: 10/09/2023 Leighann Carmichael APRN.CNP The medication(s) fall under the following categories: Category 3: Medication(s) does not qualify for pharmacist renewal due to needing a physician consult and review. Renewal request sent to provider for review. Requested Prescriptions Pending Prescriptions Disp Refills metFORMIN ER (GLUCOPHAGE XR) 500 mg 24 hr tablet 360 tablet 3 Sig: TAKE 2 TABLETS BY MOUTH TWICE DAILY BEFORE MEALS. Number of refills approved in this encounter: 0 Number of refills forwarded to provider for review: 1 Number of refills denied in this encounter: 0 Quique Green RPh documented in this encounter [facility] 09-02-2023 Note HNO ID: [id number] Author: LEIGHANN CARMICHAEL APRN.CNP Service: ? Author Type: Nurse Practitioner Type: Progress Notes Filed: 09/02/2023 12:08 Note Text: See telephone encounter Leighann Carmichael APRN.CNP [facility] 09-02-2023 Note [facility] 08-28-2023 Note [facility] 08-28-2023 Instructions Leighann Carmichael APRN.CNP - 08/28/2023 4:33 PM EST BONE MINERAL DENSITY PATIENT INSTRUCTIONS ======== Bone mineral density testing measures the amount of calcium in certain parts of your bones. This information determines how strong your bones are. The test is used to detect osteoporosis, a disease in which the bone's mineral content and density are low, increasing a person's risk of fractures. The lumbar spine (lower back) and the hip are the skeletal sites usually examined. For the test, remember that: 1. You cannot take this test if you are . 2. Eat a normal diet on the day of the test. 3. Take your medications as you normally would. 4. DO NOT take calcium supplements (such as Tums) for 24 hours before the test. 5. On the day of the test, leave valuables (jewelry or credit cards) at home. 6. The test should be performed prior to oral, rectal or IV contrast studies, or at least 7 days after any of these studies. For the test, you may be asked to wear a hospital gown. You will lie on your back, on a padded table, in a comfortable position. Generally, you can resume your usual activities immediately. documented in this encounter [facility] 08-28-2023 History of Present illness Narrative CC: Patient presents with: Recheck: Follow up, review labs HPI Bill Reynoso is a 77 year old male who presents today for routine follow up and lab review. HTN, a-fib: Mr. Reynoso indicates that he is feeling well and denies any symptoms referable to elevated blood pressure. Specifically denies headache, chest pain, palpitations, dyspnea, and peripheral edema. Patient denies any side effects of his medication(s) and is compliant with their regimen. He does check BP's away from this office with average BP's in the 140s-150s/70s range. Bill works out regularly 7 times per week with walking the dog 3-4 times a dayh. He watches his diet for sodium, low fat and low cholesterol most of the time. Last 3 Encounter BP Readings: Date: BP: 08/28/2023 118/62 07/29/2023 153/83 07/08/2023 140/82 DIABETES MELLITUS: Mr. Reynoso denies chest pain or dyspnea , numbness, tingling or pain in extremities, new or unusual visual symptoms, low sugar/hypoglycemic reactions, weight loss/gain, lightheadedness/dizziness, and bowel changes/loose stools. Follows a diabetic diet most of the time but did not follow during the holidays He is compliant with medication(s) and is tolerating med(s) without any side effects. He reports checking his glucose on a infrequent to not at all basis schedule. Patient's last HgA1C was Hemoglobin A1C (%) Date Value 07/04/2023 7.0 12/31/2022 6.9 03/21/2021 6.9 09/29/2020 6.9 Hemoglobin A1C (POCT) (%) Date Value 09/22/2021 6.6 ) Last Ophthalmology exam was within the past 6 months. Does have elevated albumin and creatinine ratio over the past 12 months. Sees multiple urologists for various urinary concerns but does not see nephrology. Consult was placed prior to this encounter. Erectile dysfuntion. Taking Cialis but still only having a partial erection which will only last for 30 minutes. Would like a consult to see a urologist that specializes in ED. Also post hernia surgery a few months back, has had ongoing anemia. reports that there was a previous report of osteopenia in a diagnostic study years ago that has not been worked up. With reviewing past studies, 2018 CT of chest showed osteopenia of the spine with no further workup with bone density. No recent fractures, last had rib fractures with fall in 2019. 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 Elevated prostate specific antigen (PSA) 11/22/2014 Family history of malignant neoplasm of gastrointestinal tract History of tear of ACL (anterior cruciate ligament) 1989 right knee Internal hemorrhoids without mention of complication Mitral valve disorders(424.0) Obstructive sleep apnea CPAP Other symptoms involving digestive system(787.99) Personal history of colonic polyps Colon polyps Snoring Unspecified essential hypertension PAST SURGICAL HISTORY Procedure Laterality Date ADENOIDECTOMY PRIMARY <AGE 14 Adenoidectomy CARDIOVERSION June 2021 CATARACT EXTRACTION HX Bilateral COLONOSCOPY FLX DX W/COLLJ SPEC WHEN PFRMD 12/21/2002 Colonoscopy COLONOSCOPY FLX DX W/COLLJ SPEC WHEN PFRMD 05/08/2007 Colonoscopy COLONOSCOPY FLX DX W/COLLJ SPEC WHEN PFRMD 06/05/2010 COLONOSCOPY FLX DX W/COLLJ SPEC WHEN PFRMD 09/07/2013 Repeat 4 years for screening COLONOSCOPY FLX DX W/COLLJ SPEC WHEN PFRMD 11/11/2017 Colonoscopy ESOPHAGOGASTRODUODENOSCOPY TRANSORAL DIAGNOSTIC 05/08/2007 EGD PAST SURGICAL HISTORY OF anal fissurectomy PAST SURGICAL HISTORY OF 2019 cyst removed behind left ear PAST SURGICAL HISTORY OF 06/2022 cardioversion REMV CATARACT EXTRACAP,INSERT LENS SIGMOIDOSCOPY FLX DX W/COLLJ SPEC BR/WA IF PFRMD 08/01/2004 Sigmoidoscopy TONSILLECTOMY PRIMARY/SECONDARY <AGE 14 Tonsillectomy ALLERGIES Adhesive, Dust Mites, and Naprosyn [Naproxen] MEDICATIONS losartan (COZAAR) 100 mg tablet Take 1 tablet by mouth once daily. Tadalafil (CIALIS) 10 mg tablet Take 1 tablet by mouth once daily as needed. Take 1-2 hours before sexual activity. metoprolol succinate ER (TOPROL XL) 25 mg 24 hr tablet Take 0.5 tablets by mouth two times a day. oxyCODONE-acetaminophen (PERCOCET) 5-325 mg tablet Take 1 tablet by mouth four times a day as needed for pain. (Patient not taking: Reported on 08/02/2023) apixaban (ELIQUIS) 5 mg tab(s) Take 1 tablet by mouth twice daily. sucralfate (CARAFATE) 1 gram tablet Take 1 tablet by mouth two times a day. pravastatin (PRAVACHOL) 40 mg tablet Take 1 tablet by mouth daily at bedtime. pantoprazole DR (PROTONIX) 40 mg tablet Take 1 tablet by mouth twice daily. flecainide (TAMBOCOR) 100 mg tablet TAKE ONE TABLET BY MOUTH TWICE DAILY tamsulosin (FLOMAX) 0.4 mg TAKE 2 CAPSULES BY MOUTH EVERY DAY 1/2 HOUR AFTER SAME MEAL EVERY DAY- MAXIMUM 0.8MG DAILY finasteride (PROSCAR) 5 mg tablet Take 1 tablet by mouth once daily. amLODIPine (NORVASC) 5 mg tablet Take 1 tablet by mouth once daily. levalbuterol tartrate HFA (XOPENEX HFA) 45 mcg/actuation inhaler Inhale 1-2 Puffs as instructed every 4 hours as needed for wheezing/shortness of breath. doxazosin (CARDURA) 4 mg tablet Take 1 tablet by mouth once daily. blood sugar diagnostic (ACCU-CHEK GUIDE TEST STRIPS) test strip Use as instructed Lancing Device with Lancets (ACCU-CHEK MULTICLIX LANCET) 1 Each once daily. Blood Glucose Control High and Low (ACCU-CHEK GUIDE L1-L2 CTRL HAYDE) soln 1 Each as needed. metFORMIN ER (GLUCOPHAGE XR) 500 mg 24 hr tablet TAKE 2 TABLETS BY MOUTH TWICE DAILY BEFORE MEALS. Lancets lancets Test blood sugar(s) once times daily. Dx: Type 2 DM - Controlled E11.9 Insulin: No nqsiutuwymt-uqnnzuuar-kwtlrkds (TRELEGY ELLIPTA) 200-62.5-25 mcg inhalation powder Inhale 1 Puff as instructed once daily. CPAP AutoPAP 12-20 cmH2O, nasal mask, humidity, filters. Lifetime supplies. Dx: 327.23. Fax compliance rpt to [facility] in 6 weeks. magnesium oxide (MAG-OXIDE ORAL) Take 400 mg by mouth once daily. BIOTIN ORAL Take by mouth. COQ10, LIPOSOMAL UBIQUINOL, ORAL Take by mouth once daily. Take for two weeks then restart statin. multivitamins w-minerals/lut(CENTRUM SILVER TAB) Take one(1) tablet daily. ASPIRIN 81 MG TAB Take by mouth once daily. FAMILY HISTORY Problem Relation Age of Onset Colon Cancer Mother Hypertension Mother Cancer Father Prostate Hypertension Father Colon Cancer Sister Breast Cancer Sister Clotting Disorder No Family History Anesthesia Problems No Family History Malig Hyperthermia No Family History Social History Tobacco Use Smoking status: Never Smokeless tobacco: Never Tobacco comments: No one in household smokes. Vaping Use Vaping Use: Never used Substance Use Topics Alcohol use: Yes Alcohol/week: 1.0 - 2.0 standard drink of alcohol Types: 1 - 2 Cans of Beer (12oz) per week Comment: once every 2 weeks Drug use: No PHYSICAL EXAM BP 118/62 Pulse 68 Resp 16 Wt 107 kg (236 lb) SpO2 93% BMI 34.56 kg/m General Appearance: well appearing, in no acute distress, alert Pysch: mood and affect broad and appropriate Eyes: conjunctiva pink and moist, no icterus, sclera white, non-injected Lungs: Lungs clear to auscultation. No wheezing, rhonchi, rales. Heart: RRR without murmur, gallop, or rubs. No ectopy Health maintenance reviewed with patient: Advance Directive Discussion due on 08/26/2023 Depression Assessment due on 08/26/2023 Covid-19 Vaccine( season) due on 05/29/2024 HbA1C due on 01/02/2024 BP Controlled (<130/80) due on 01/03/2024 Dilated Retinal Exam due on 05/22/2024 Serum Creatinine due on 07/04/2024 Diabetic Foot Exam due on 07/08/2024 Annual PCP Team Chronic Disease Visit due on 07/08/2024 LDL Cholesterol due on 07/22/2024 Urine Albumin:Creatinine Ratio due on 07/29/2024 DTaP,Tdap,Td Vaccine(2 - Td or Tdap) due on 10/14/2026 Colorectal Cancer Screening due on 12/22/2027 Spirometry Completed Influenza Vaccine Completed RSV Vaccine Completed Hepatitis C Screening Completed Shingrix Vaccine Completed Pneumococcal Vaccine: 65+ Completed DATA REVIEWED: Most recent labs ASSESSMENT/PLAN: 1. Essential hypertension - ICD9: 401.9, ICD10: I10 (primary diagnosis) - Controlled - Continue current medications - Recommend home blood pressure monitoring, to bring results to next visit - Encouraged sodium restriction, DASH or Mediterranean diet - Recommend regular aerobic exercise - BASIC METABOLIC PNL 2. CKD stage G2/A2, GFR 60-89 and albumin creatinine ratio 30-299 mg/g - ICD9: 585.2, ICD10: N18.2 - eGFR: 62 Stable - need to get diabetes better controlled Nephrology consult placed previously - CBC + DIFF - BASIC METABOLIC PNL 3. Controlled type 2 diabetes mellitus without complication, without long-term current use of insulin (HCC) - ICD9: 250.00, ICD10: E11.9 - Worsening control - patient feels his diet could improve to help control his blood sugar - Continue current medications - Counseled on healthy diet and regular exercise - Discussed need for and benefit of weight loss. BMI 34.56 kg/(m^2) - HGB A1C - BASIC METABOLIC PNL 4. Anemia, unspecified type - ICD9: 285.9, ICD10: D64.9 - will recheck - stool for occult blood ordered previously - CBC + DIFF 5. PAF (paroxysmal atrial fibrillation) (HCC) - ICD9: 427.31, ICD10: I48.0 Asymptomatic - continue with medications and recommendations by cardiology 6. Erectile dysfunction, unspecified erectile dysfunction type - ICD9: 607.84, ICD10: N52.9 - CONSULT TO UROLOGY 7. Abnormal CT scan - ICD9: 793.99, ICD10: R93.89 Will further evaluate with bone density scan - DXA - VFA ASSESS ONLY 8. Encounter for screening for osteoporosis - ICD9: V82.81, ICD10: Z13.820 - DXA - VFA ASSESS ONLY 9. Vitamin D deficiency - ICD9: 268.9, ICD10: E55.9 - VITAMIN D 25 HYDROXY Prescription instructions reviewed with patient as applicable. Potential red flag symptoms discussed with the patient. Reviewed appropriate action plan to take if red flag symptoms occur. Patient agreeable to treatment plan. Leighann Carmichael APRN.KATERINA documented in this encounter [facility] 08-02-2023 Note [facility] 08-02-2023 Note [facility] 08-02-2023 Note [facility] 08-02-2023 History of Present illness Narrative Images from the original note were not included. SERVICE DATE: August 02, 2023 PCP: Jo Woods MD Patient was self-referred. Subjective Patient ID: Gurinder is a 77 year old male. Chief Complaint: Patient presents with: Right Knee Pain: Right knee pain Right knee pain started acutely about 3 weeks ago when he was walking and felt a pop in the knee followed by sharp pain. He states that the pain has improved over the past week but thought it would be best to come in for a checkup. He has ACL deficiency in the right knee and medial compartment arthritis. PAIN EVALUATION 08/02/2023 1031 Pain Level: -- 8/10 at its worse Pain Location: Knee-Right Description: Aching Duration Amount of Time: 3 Duration Units: Weeks Frequency: Continuous Intervention/Comfort measure: Relaxation;Reposition HPI TREATMENTS PRIOR TO INITIAL CONSULT: Review of Systems ACTIVE PROBLEM LIST Mitral Valve Disorders(424.0) Paf (Paroxysmal Atrial Fibrillation) (Hcc) Essential Hypertension Type 2 Diabetes Mellitus With Stage 3a Chronic Kidney Disease, Without Long-Term Current Use of Insulin (Hcc) Asthma Brock (Obstructive Sleep Apnea) Cervical Radiculopathy Acquired Cyst of Kidney Hyperlipidemia Rising Psa Level Hemidiaphragm 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 Testicular Pain Sensorineural Hearing Loss (Snhl) of Both Ears Special Screening for Malignant Neoplasms, Colon Pvc (Premature Ventricular Contraction) Other Chest Pain Obesity, Class I, Bmi 30-34.9 Obesity, Class II, Bmi 35-39.9 Allergic Rhinitis Due to Dust Mite Bph With Urinary Obstruction Stage 3a Chronic Kidney Disease (Hcc) Coronary Artery Disease Involving [place] Coronary Artery of [place] Heart Without Angina Pectoris Asymptomatic Microscopic Hematuria 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 Elevated prostate specific antigen (PSA) 11/22/2014 Family history of malignant neoplasm of gastrointestinal tract History of tear of ACL (anterior cruciate ligament) 1989 right knee Internal hemorrhoids without mention of complication Mitral valve disorders(424.0) Obstructive sleep apnea CPAP Other symptoms involving digestive system(787.99) Personal history of colonic polyps Colon polyps Snoring Unspecified essential hypertension PAST SURGICAL HISTORY Procedure Laterality Date ADENOIDECTOMY PRIMARY <AGE 14 Adenoidectomy CARDIOVERSION June 2021 CATARACT EXTRACTION HX Bilateral COLONOSCOPY FLX DX W/COLLJ SPEC WHEN PFRMD 12/21/2002 Colonoscopy COLONOSCOPY FLX DX W/COLLJ SPEC WHEN PFRMD 05/08/2007 Colonoscopy COLONOSCOPY FLX DX W/COLLJ SPEC WHEN PFRMD 06/05/2010 COLONOSCOPY FLX DX W/COLLJ SPEC WHEN PFRMD 09/07/2013 Repeat 4 years for screening COLONOSCOPY FLX DX W/COLLJ SPEC WHEN PFRMD 11/11/2017 Colonoscopy ESOPHAGOGASTRODUODENOSCOPY TRANSORAL DIAGNOSTIC 05/08/2007 EGD PAST SURGICAL HISTORY OF anal fissurectomy PAST SURGICAL HISTORY OF 2019 cyst removed behind left ear PAST SURGICAL HISTORY OF 06/2022 cardioversion REMV CATARACT EXTRACAP,INSERT LENS SIGMOIDOSCOPY FLX DX W/COLLJ SPEC BR/WA IF PFRMD 08/01/2004 Sigmoidoscopy TONSILLECTOMY PRIMARY/SECONDARY <AGE 14 Tonsillectomy FAMILY HISTORY Problem Relation Age of Onset Colon Cancer Mother Hypertension Mother Cancer Father Prostate Hypertension Father Colon Cancer Sister Breast Cancer Sister Clotting Disorder No Family History Anesthesia Problems No Family History Malig Hyperthermia No Family History Social History Tobacco Use Smoking status: Never Smokeless tobacco: Never Tobacco comments: No one in household smokes. Vaping Use Vaping Use: Never used Substance Use Topics Alcohol use: Yes Alcohol/week: 1.0 - 2.0 standard drink of alcohol Types: 1 - 2 Cans of Beer (12oz) per week Comment: once every 2 weeks Drug use: No ALLERGIES Allergen Reactions Adhesive Rash Dust Mites Naprosyn [Naproxen] GI Upset MEDICATIONS: losartan (COZAAR) 100 mg tablet Take 1 tablet by mouth once daily. Tadalafil (CIALIS) 10 mg tablet Take 1 tablet by mouth once daily as needed. Take 1-2 hours before sexual activity. metoprolol succinate ER (TOPROL XL) 25 mg 24 hr tablet Take 0.5 tablets by mouth two times a day. apixaban (ELIQUIS) 5 mg tab(s) Take 1 tablet by mouth twice daily. sucralfate (CARAFATE) 1 gram tablet Take 1 tablet by mouth two times a day. pravastatin (PRAVACHOL) 40 mg tablet Take 1 tablet by mouth daily at bedtime. pantoprazole DR (PROTONIX) 40 mg tablet Take 1 tablet by mouth twice daily. flecainide (TAMBOCOR) 100 mg tablet TAKE ONE TABLET BY MOUTH TWICE DAILY tamsulosin (FLOMAX) 0.4 mg TAKE 2 CAPSULES BY MOUTH EVERY DAY 1/2 HOUR AFTER SAME MEAL EVERY DAY- MAXIMUM 0.8MG DAILY finasteride (PROSCAR) 5 mg tablet Take 1 tablet by mouth once daily. amLODIPine (NORVASC) 5 mg tablet Take 1 tablet by mouth once daily. levalbuterol tartrate HFA (XOPENEX HFA) 45 mcg/actuation inhaler Inhale 1-2 Puffs as instructed every 4 hours as needed for wheezing/shortness of breath. doxazosin (CARDURA) 4 mg tablet Take 1 tablet by mouth once daily. blood sugar diagnostic (ACCU-CHEK GUIDE TEST STRIPS) test strip Use as instructed Lancing Device with Lancets (ACCU-CHEK MULTICLIX LANCET) 1 Each once daily. Blood Glucose Control High and Low (ACCU-CHEK GUIDE L1-L2 CTRL HAYDE) soln 1 Each as needed. metFORMIN ER (GLUCOPHAGE XR) 500 mg 24 hr tablet TAKE 2 TABLETS BY MOUTH TWICE DAILY BEFORE MEALS. Lancets lancets Test blood sugar(s) once times daily. Dx: Type 2 DM - Controlled E11.9 Insulin: No ebkfwjivvep-kzpdgrrwv-irdhctxn (TRELEGY ELLIPTA) 200-62.5-25 mcg inhalation powder Inhale 1 Puff as instructed once daily. CPAP AutoPAP 12-20 cmH2O, nasal mask, humidity, filters. Lifetime supplies. Dx: 327.23. Fax compliance rpt to [facility] in 6 weeks. magnesium oxide (MAG-OXIDE ORAL) Take 400 mg by mouth once daily. BIOTIN ORAL Take by mouth. COQ10, LIPOSOMAL UBIQUINOL, ORAL Take by mouth once daily. Take for two weeks then restart statin. multivitamins w-minerals/lut(CENTRUM SILVER TAB) Take one(1) tablet daily. ASPIRIN 81 MG TAB Take by mouth once daily. oxyCODONE-acetaminophen (PERCOCET) 5-325 mg tablet Take 1 tablet by mouth four times a day as needed for pain. (Patient not taking: Reported on 08/02/2023) Allergies, medications, past surgical history, family history and past medical history were reviewed per this encounter. Objective Ortho Exam Alert, pleasant, no acute distress. Right knee shows no significant effusion. There is tenderness over the medial joint line with palpation. There is no pain or laxity with stress to the medial collateral ligament. There is crepitus and mild pain with Radha's test. Assessment/Plan ASSESSMENT Diagnosis No diagnosis found. Osteoarthritis right knee-cute exacerbation ACL deficiency right knee No orders found for this visit on 08/02/23. PLAN Symptoms are improving. We discussed treatment options including Pedro Luis wrap, alternating ice and heat, he is not a candidate for oral anti-inflammatory medication due to being on Eliquis and having kidney disorder, but he may try topical treatment with Voltaren gel for short periods of time if needed. FOLLOW-UP: No follow-ups on file. SIGNATURE: Cristian Choe DO PATIENT NAME: Bill Reynoso DATE: August 02, 2023 TIME: 10:56 AM Patient presents with: Right Knee Pain: Right knee pain Xray completed 08/02/2023 Patient states he was climbing a ladder about 2-3 weeks ago and felt a pop in his right knee. This knee has had a previous injury years ago with an ACL tear that was not treated. Patient has had pain in the knee ever since and has needed to use a cane occasionally for ambulation. Has been using an PEDRO LUIS wrap for stability when walking. AMB ROOMING INTAKE FLOWSHEET DATA Pain Pain Level: (810 at its worse) Pain Location: Knee-Right Description: Aching Duration Amount of Time: 3 Duration Units: Weeks Frequency: Continuous Intervention/Comfort measure: Relaxation, Reposition Makeda Pride RN documented in this encounter [facility] 08-02-2023 History of Present illness Narrative Radiology Service Progress Note PATIENT NAME: Bill Reynoso DATE OF SERVICE: August 02, 2023 TIME: 10:22 AM PATIENT IDENTITY VERIFICATION COMPLETED USING TWO (2) IDENTIFIERS: Name and Date of confirmed by patient verbally. FALL SCREENING: Has the patient had 2 falls in the last year or 1 fall with injury or currently using an Ambulatory Assistive Device (Walker, Cane, Wheelchair, Crutches, etc.)? No PATIENT GENDER DATA: Male PATIENT RELEVANT IMPLANT DATA REVIEWED: Not Applicable RADIOLOGY DEPARTMENT: General X-ray: Exam(s) Completed: Lower Extremity X-Ray(s): Knee, AP / Lat / Tunne / Merchant Right and Wt. Bearing PERIPHERAL IV DATA: Not applicable SIGNED BY: RT Olvin(R) August 02, 2023 10:22 AM documented in this encounter [facility] 08-01-2023 Note [facility] 08-01-2023 History of Present illness Narrative UNIVERSAL PROTOCOL / SAFETY CHECKLIST Procedure to be Performed: cystoscopy Sign In: A Moment of CARE was completed. Personnel directly involved with the procedure wore the appropriate PPE (Personal Protective Equipment). Patient/Surrogate Stated/Verified: PATIENT VERIFIED(optional for EMERGENT procedures): Patient name, Date of , Relevant allergies, and The intended procedure Time Out Communication: Intended patient and procedure match the source documents. Consent documented and matches the intended procedure. Correct side/site marked and visible. Fire risk assessed and interventions discussed. No implant(s) inserted. Sign Out: SIGN OUT (optional for EMERGENT procedures): All specimen containers correctly labeled. 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 Pt had pancreatitis, had imaging, CT showed pancreatitis resolved MRI 04/07: 1.3 hemorrhagic cyst R upper pole, B2F, 1.2 cm B2F, hemorrhagic cyst upper pole on L too I reviwed and cysts are complex but not susp RCC, agree with B2f Voids well on flomax, Afib (no AC), HTN, DM, Mitral valve hypertrophy, sleep apnea, anal fistula, CAD On LD ASA, COPD UA negative WE advised bmp and dedicated renal CT in 6 mo 11/06: CT with 1 cm B2 lesions in each kidney, no change, I reviewed agreed, we see in 12 mo with US Will stay on flomax, PCP follows for psa, cult neg 12/06: nocturia, we will soon to check PVR, consider adding proscar 01/06: apparently US shows mass R upper pole up to 2 cm, we see with CT in February or April 01: SCr 1.43, eGFR 49, CT all stable, B2 cysts, we see in 12 mo with bmp and US 11/07: CXR neg, US all stable, no change cysts, psa 1.32 12/09: US all stable or improved, no susp lesions, SCr 1.38, eGFR 51, psa 1.64, shelley fine, we see 2 yrs with PSA and SHELLEY 10/12: mild orchalgia, US testes neg, althouh B varicoceles, will Rx NSAI, RTC 2 yrs with US kidneys and psa 02/10, doing well, no testicular pain, shelley fine, psa 1.69, US neg 09/14: psa 1.91, shelley fine, UA neg, some LUTS, will go to flomax 0.8, we will see 12 mo with psa and US 08/14: US with mildly complex cysts, min change, 09/29/20 US fine 01/13: psa 1.79, 23% free, US 10/16, fine, all stable, increased LUTS, we put on proscar, shelley fine, PVR 8 cc Now on proscar and flomax BID, we see 12 mo with psa, reassess LUTS then 01/14, on proscar and flomax 0.8, SHELLEY fine, UA fine, PVR 78, RTC 12 mo with psa and US 03/16: US fine, some calcified cysts in kidneys and some stones in kidney, to see endourol team 12/27/22, LUTS despite flomax x 2 and proscar, will have him see bph team, consider MIS turp, pvr 64, psa 0.83 01/15: US fine, some mildly complex cysts that are stasble, small, < 2 cm 07/18: psa 1.59, mostly stable, US fine, shelley fine, UA with AMH, >25r, no W we see 12 mo with psa and shelley Recent hematuria, hx stones, for csyto, US was fine The above represents a brief summary of the patient's history as of the last clinic visit or hospitalization. Interim history: Recent radiographic studies: 06/27/2023 CXR: no abnormality Recent labs: 07/04/2023 Creatinine: 1.21, eGFR: 62 Clinical status: no change, stable Voiding status and ROS: voids well, no gross hematuria Reason for today's visit: Cysto The procedure, office cystoscopy, and risks including but not limited to bleeding and infection, were reviewed and all questions were answered. Potential benefits such as defining disease status was discussed. Alternatives reviewed. My role as the physician performing the proceedure was reviewed. In short, we discussed P/R/B/A/P, in detail, all questions answered. Patient wishes to proceed. Disease Specificity: Acuity: Chronic Anatomic Site: Kidney, Laterality: N/A Underlying Condition/Causal Agent: Primary Associated Conditions/Manifestations: N/A No change ROS or PE: no change, stable Voids: see above Cystoscopy - Normal Urethra - Normal Prostate: Moderate lateral lobes VN: open Urothelium: Normal, no evidence of tumor, CIS stone, foreign body, diverticuli, etc. Trabeculation: mild Inflammation: mild Ureteral Orifices: Normal, clear efflux bilaterally Trigone: Normal Preoperative diagnosis: hematuria Postoperative diagnosis: Same Procedure: Flexible cystoscopy Surgeon: Dr. Tyler Anesthesia: Anestacon Procedure: The patient was taken to the cystoscopy suite and placed in the dorsal lithotomy position. He was then prepped and draped in the usual manner. Lidocaine gel was placed per urethra for local anasthesia. The patient received appropriate periprocedure antibiotics. Cystoscopy was then performed using a flexible cystoscope. Sterile technique was maintained throughout. Please refer to above for specific findings during this part of the procedure. After carefully and atraumatically inspecting the urethra, prostate, VN, bladder, and UO's, the cystoscope was removed. The patient tolerated the procedure well and there were no complications. He was take for recovery in good condition. Findings: see above Complications: None EBL: None Disposition: cysto fine, few very, very small bladder stones, will observe RTC 12 mo psa as planned Naveed Tyler MD Scribe Attestation: By signing my name below, Kenneth Schmidt, attest that this documentation has been prepared under the direction and in the presence of Dr. Naveed Tyler MD. Electronically Signed:malia Rod, August 01, 2023 10:32 AM Provider Attestation: Naveed Schmidt MD, personally performed the services described in this documentation. All medical record entries made by the scribe were at my direction and in my presence. I have reviewed the chart and discharge instructions (if applicable) and agree that the record reflects my personal performance and is accurate and complete. Naveed Tyler MD August 01, 2023 2:24 PM documented in this encounter [facility] 08-01-2023 Nurse Note Actual procedure/procedure scheduled: Yes Performing provider/scheduled provider: Yes Patient was roomed in: Q9- 10 [employer] Grower offered:Patient declines Patient arrived in the room at: 1405 Patient ready for procedure: 1420 The procedure started at ( Time Only): 1420 The procedure ended at: 1422 Was the procedure delayed: No The patient left the procedure room at: 1430 Patience Vazquez RN PRE PROCEDURE ASSESSMENT- Cysto Procedure Indication: Cystoscopy Latex Allergy: No Allergies reviewed and updated. Yes Pre-Procedure Vital Signs: BP: 181/86 Pulse: 67 Heart valve replacement: No Joint replacement: No Back Office UA otained: yes PROCEDURE PREP-Cysto Patient ID with two(2)identifiers verified by: Patience Vzaquez RN Pre-Procedure Antibiotics: None taken at home nor prior to procedure Patient Prep: Betadine Scrub to perineum and placement of Sterile Drape. COMPLETED Anesthetic Given:10 cc 2% Lidocaine jelly Patience Vazquez RN UNIVERSAL PROTOCOL / SAFETY CHECKLIST Procedure to be performed: Cystoscopy Sign in Communication: Completed Time Out: Team Confirms the Correct Patient, Correct Procedure, Correct Site and Site Marking, Correct Position (if applicable). Sign Out Discussion: Completed Patience Vazquez RN POST PROCEDURE NURSE ASSESSMENT Present along with physician during procedure exam. Patience Vazquez RN Instruction sheet given and reviewed and patient verbalizes understanding: yes Post Procedure Antibiotic: none Current pain intensity is 0 on a 0-10 pain scale. Patience Vazquez RN AMBULATORY PATIENT EDUCATION THE FOLLOWING WAS EVALUATED Motivation To Learn: Interested Family/Significant Other Support: High - Very involved in pt care Cognitive Ability: Alert/Oriented Method of Instruction: Individual instruction Written instruction - handouts Verbal instruction The Following Influencing Factors Were Barriers To This Education Session: None The Following Physical Limitations Were Barriers To This Education Session: None Instruction Provided To: Patient Pedodontist Present: not applicable Discipline: Nursing Learning Topic: SURVIVAL SKILLS: Complication Prevention Symptom Management Patient Evaluation: Verbalizes understanding: Yes Supplemental Material Given: Written Material Instructed By Patience Vazquez RN In Department Urology. documented in this encounter [facility] 07-29-2023 Note [facility] 07-29-2023 History of Present illness Narrative Images from the original note were not included. [facility] SECTION OF REGIONAL CARDIOLOGY Cardiology ([facility]) [address] [facility] [id number] OUTPATIENT VISIT DATE 07/29/2023 PRIMARY CARE PHYSICIAN: JO WOODS MD [address] [place] [address] HISTORY OF PRESENT ILLNESS: Mr. Reynoso is a 77 year old gentleman with a history of paroxysmal atrial fibrillation, hypertension, dyslipidemia, diabetes ([id number]), obstructive sleep apnea and chronic kidney disease who is here for follow-up. Since his last visit, he reports only having 1 episode of atrial fibrillation which lasted approximately 10 minutes. He has not had symptoms of chest pain or pressure. He denies symptoms concerning for CHF including PND, orthopnea, or lower extremity edema. 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 Elevated prostate specific antigen (PSA) 11/22/2014 Family history of malignant neoplasm of gastrointestinal tract History of tear of ACL (anterior cruciate ligament) 1989 right knee Internal hemorrhoids without mention of complication Mitral valve disorders(424.0) Obstructive sleep apnea CPAP Other symptoms involving digestive system(787.99) Personal history of colonic polyps Colon polyps Snoring Unspecified essential hypertension PAST SURGICAL HISTORY Procedure Laterality Date ADENOIDECTOMY PRIMARY <AGE 14 Adenoidectomy CARDIOVERSION June 2021 CATARACT EXTRACTION HX Bilateral COLONOSCOPY FLX DX W/COLLJ SPEC WHEN PFRMD 12/21/2002 Colonoscopy COLONOSCOPY FLX DX W/COLLJ SPEC WHEN PFRMD 05/08/2007 Colonoscopy COLONOSCOPY FLX DX W/COLLJ SPEC WHEN PFRMD 06/05/2010 COLONOSCOPY FLX DX W/COLLJ SPEC WHEN PFRMD 09/07/2013 Repeat 4 years for screening COLONOSCOPY FLX DX W/COLLJ SPEC WHEN PFRMD 11/11/2017 Colonoscopy ESOPHAGOGASTRODUODENOSCOPY TRANSORAL DIAGNOSTIC 05/08/2007 EGD PAST SURGICAL HISTORY OF anal fissurectomy PAST SURGICAL HISTORY OF 2019 cyst removed behind left ear PAST SURGICAL HISTORY OF 06/2022 cardioversion REMV CATARACT EXTRACAP,INSERT LENS SIGMOIDOSCOPY FLX DX W/COLLJ SPEC BR/WA IF PFRMD 08/01/2004 Sigmoidoscopy TONSILLECTOMY PRIMARY/SECONDARY <AGE 14 Tonsillectomy SOCIAL HISTORY Social History Tobacco Use Smoking status: Never Smokeless tobacco: Never Tobacco comments: No one in household smokes. Vaping Use Vaping Use: Never used Substance Use Topics Alcohol use: Yes Alcohol/week: 1.0 - 2.0 standard drink of alcohol Types: 1 - 2 Cans of Beer (12oz) per week Comment: once every 2 weeks Drug use: No FAMILY HISTORY Problem Relation Age of Onset Colon Cancer Mother Hypertension Mother Cancer Father Prostate Hypertension Father Colon Cancer Sister Breast Cancer Sister Clotting Disorder No Family History Anesthesia Problems No Family History Malig Hyperthermia No Family History ALLERGIES: ALLERGIES Allergen Reactions Adhesive Rash Dust Mites Naprosyn [Naproxen] GI Upset MEDICATIONS: Tadalafil (CIALIS) 10 mg tablet^Take 1 tablet by mouth once daily as needed. Take 1-2 hours before sexual activity.^Disp: 15 tablet^Rfl: 1 metoprolol succinate ER (TOPROL XL) 25 mg 24 hr tablet^Take 0.5 tablets by mouth two times a day.^Disp: ^Rfl: 0 oxyCODONE-acetaminophen (PERCOCET) 5-325 mg tablet^Take 1 tablet by mouth four times a day as needed for pain.^Disp: 12 tablet^Rfl: 0 apixaban (ELIQUIS) 5 mg tab(s)^Take 1 tablet by mouth twice daily.^Disp: 180 tablet^Rfl: 3 sucralfate (CARAFATE) 1 gram tablet^Take 1 tablet by mouth two times a day.^Disp: 60 tablet^Rfl: 5 pravastatin (PRAVACHOL) 40 mg tablet^Take 1 tablet by mouth daily at bedtime.^Disp: 90 tablet^Rfl: [address] (PROTONIX) 40 mg tablet^Take 1 tablet by mouth twice daily.^Disp: 180 tablet^Rfl: 3 flecainide (TAMBOCOR) 100 mg tablet^TAKE ONE TABLET BY MOUTH TWICE DAILY^Disp: 180 tablet^Rfl: 3 tamsulosin (FLOMAX) 0.4 mg^TAKE 2 CAPSULES BY MOUTH EVERY DAY 1/2 HOUR AFTER SAME MEAL EVERY DAY- MAXIMUM 0.8MG DAILY^Disp: 180 capsule^Rfl: 3 finasteride (PROSCAR) 5 mg tablet^Take 1 tablet by mouth once daily.^Disp: 90 tablet^Rfl: 3 amLODIPine (NORVASC) 5 mg tablet^Take 1 tablet by mouth once daily.^Disp: 90 tablet^Rfl: 3 levalbuterol tartrate HFA (XOPENEX HFA) 45 mcg/actuation inhaler^Inhale 1-2 Puffs as instructed every 4 hours as needed for wheezing/shortness of breath.^Disp: 15 g^Rfl: 11 doxazosin (CARDURA) 4 mg tablet^Take 1 tablet by mouth once daily.^Disp: 90 tablet^Rfl: 3 lisinopril (ZESTRIL) 20 mg tablet^Take 1 tablet by mouth once daily.^Disp: 90 tablet^Rfl: 3 blood sugar diagnostic (ACCU-CHEK GUIDE TEST STRIPS) test strip^Use as instructed^Disp: 100 Strip^Rfl: 3 Lancing Device with Lancets (ACCU-CHEK MULTICLIX LANCET)^1 Each once daily.^Disp: 100 Each^Rfl: 3 Blood Glucose Control High and Low (ACCU-CHEK GUIDE L1-L2 CTRL HAYDE) soln^1 Each as needed.^Disp: 1 Each^Rfl: 3 metFORMIN ER (GLUCOPHAGE XR) 500 mg 24 hr tablet^TAKE 2 TABLETS BY MOUTH TWICE DAILY BEFORE MEALS.^Disp: 360 tablet^Rfl: 3 Lancets lancets^Test blood sugar(s) once times daily. Dx: Type 2 DM - Controlled E11.9 Insulin: No^Disp: 100 Each^Rfl: 11 ufzgfddszks-krofkdxct-exgjigjl (TRELEGY ELLIPTA) 200-62.5-25 mcg inhalation powder^Inhale 1 Puff as instructed once daily.^Disp: 180 Each^Rfl: 3 CPAP^AutoPAP 12-20 cmH2O, nasal mask, humidity, filters. Lifetime supplies. Dx: 327.23. Fax compliance rpt to [facility] in 6 weeks.^Disp: 1 Each^Rfl: 1 magnesium oxide (MAG-OXIDE ORAL)^Take 400 mg by mouth once daily.^Disp: ^Rfl: BIOTIN ORAL^Take by mouth.^Disp: ^Rfl: COQ10, LIPOSOMAL UBIQUINOL, ORAL^Take by mouth once daily. Take for two weeks then restart statin.^Disp: ^Rfl: multivitamins w-minerals/lut(CENTRUM SILVER TAB)^Take one(1) tablet daily.^Disp: ^Rfl: 0 ASPIRIN 81 MG TAB^Take by mouth once daily.^Disp: ^Rfl: 0 REVIEW OF SYSTEMS: Review of Systems Constitutional: Negative for chills, fever, malaise/fatigue and weight loss. HENT: Negative for hearing loss and sore throat. Eyes: Negative for blurred vision and double vision. Respiratory: Negative. Cardiovascular: Negative. Gastrointestinal: Negative. Genitourinary: Negative for dysuria, frequency, hematuria and urgency. Musculoskeletal: Negative. Skin: Negative. Neurological: Negative for dizziness, seizures, loss of consciousness, weakness and headaches. Endo/Heme/Allergies: Negative for environmental allergies. Does not bruise/bleed easily. Psychiatric/Behavioral: Negative for depression. PHYSICAL EXAMINATION: BP 153/83 (BP Site: Right Arm, BP Position: Sitting, BP Cuff Size: Large Adult) Pulse (!) 58 Resp 16 Wt 104.3 kg (230 lb) SpO2 94% BMI 33.68 kg/m General: Pleasant gentleman sitting appears comfortable and in no apparent distress. HEENT: Carotid upstrokes are brisk bilateral without bruits. No JVD appreciated. Pulmonary: Lungs are clear no rales, wheezes, rhonchi. Cardiovascular: Normal S1-S2 with a regular rate and rhythm. No murmurs, rubs, or gallops appreciated. Extremities: Warm, well-perfused, 1-2+ nonpitting edema lower extremities bilaterally CARDIOVASCULAR MEDICINE TESTING: Treadmill Myoview Stress 09/12/20 STRESS ECG SUMMARY: The patient's resting heart rate was 71 bpm and blood pressure was 160/92 mmHg. The patient exercised according to the Modified Mo protocol. Total exercise time was 14 minutes and 50 seconds. The maximum heart rate was 133 bpm, which is 90% predicted for age. METs achieved was 10.4. The double product achieved was 15858. Peak heart rate was 133 bpm and peak blood pressure was 180/98 mmHg. CONCLUSIONS: 1. SPECT Perfusion Study: Normal. 2. There is no scintigraphic evidence for inducible ischemia. 3. No evidence of scarred myocardium. 4. Left ventricle is normal in size. The left ventricle systolic function is normal. 5. Right ventricle is normal in size. 6. This is a low risk scan. Gated Stress FBP LVEF % 58 Zio Patch Monitor 08/29/20-09/12/20 Preliminary Findings Patient had a min HR of 43 bpm, max HR of 174 bpm, and avg HR of 56 bpm. Predominant underlying rhythm was Sinus Rhythm. 31 Supraventricular Tachycardiaruns occurred, the run with the fastest interval lasting 13 beats with a max rate of174 bpm, the longest lasting 20 beats with an avg rate of 112 bpm. Some episodesof Supraventricular Tachycardia may be possible Atrial Tachycardia with variableblock. Idioventricular Rhythm was present. Isolated SVEs were rare (<1.0%), SVECouplets were rare (<1.0%), and SVE Triplets were rare (<1.0%). Isolated VEs wereoccasional (3.3%, 38863), VE Couplets were rare (<1.0%, 2532), and VE Triplets were rare (<1.0%, 16). Ventricular Bigeminy and Trigeminy were present. Echocardiogram 04/05/2022: - Technically difficult exam due to body habitus. - Exam indication: Shortness of Breath - The left ventricle is normal in size. Left ventricular systolic function is normal. EF = 65 5% (2D biplane) Grade I left ventricular diastolic dysfunction. - The right ventricle is normal in size. Right ventricular systolic function is normal. - The left atrial cavity is moderately dilated. - There are no significant valvular abnormalities. - The visualized aorta is dilated with a maximal dimension of 4.1 cm. - Exam was compared with the prior echocardiographic exam performed on 04/26/2017. Echocardiogram 04/26/17: CONCLUSIONS: - Technically difficult exam due to body habitus. - Exam indication: Atrial fibrillation - The left ventricle is normal in size. There is moderate concentric left ventricular hypertrophy. Left ventricular systolic function is normal. EF = 60 5% (visual est.) Grade I left ventricular diastolic dysfunction. - The right ventricle is normal in size. Right ventricular systolic function is normal. - The left atrial cavity is moderately dilated. - Mild MR - Moderate AV sclerosis. - Exam was compared with the prior CC echocardiographic exam performed on 04/19/2015 (Stress). No significant change. IMPRESSION: Mr. Reynoso is a 77 year old gentleman with a history of paroxysmal atrial fibrillation who has been maintained on flecainide for many years. Recent episode of breakthrough atrial fibrillation likely secondary to his noncompliance with CPAP. He is also treated for hypertension and dyslipidemia. He presents to the office for earlier follow-up due to the development of lower extremity edema on increased dose of amlodipine only. PLAN AND RECOMMENDATIONS: 1. PAF (paroxysmal atrial fibrillation) ([facility]) - ICD9: 427.31, ICD10: I48.0 (primary diagnosis) Doing well on current dose of flecainide. He is maintained on Eliquis for stroke risk reduction. He has follow-up with electrophysiology in August 27. Essential hypertension - ICD9: 401.9, ICD10: I10 Not optimally controlled on current regimen. We will stop lisinopril and start losartan 100 mg daily. 3. Mixed hyperlipidemia - ICD9: 272.2, ICD10: E78.2 Maintained on pravastatin 40 mg daily. Fasting blood work from June 2023 was reviewed. LDL cholesterol 65 mg/dL 4. PVC (premature ventricular contraction) - ICD9: 427.69, ICD10: I49.3 Carli Hilton MD documented in this encounter [facility] 07-29-2023 Instructions Carli Hilton MD - 07/29/2023 3:11 PM EST We are changing the Lisinopril to Losartan 100 mg once per day documented in this encounter [facility] 07-25-2023 Miscellaneous Notes Pt called. Instructed to come in at 3pm. Cely Ferrera RN Patient called stating that his grandchild has a [facility] program on 07/29/2023 and it conflicts with his scheduled appointment with Dr. Hilton. Patient is wondering if there are any earlier time slots or if he could come early? He needs to be done by 4pm. Makeda Pride RN documented in this encounter [facility] 07-24-2023 Note [facility] 07-13-2023 Note [facility] 07-13-2023 History of Present illness Narrative Telemedicine Evaluation for COVID-19 Infection MyChart Zoom Video Visit was used for evaluation of this patient. I have communicated my name and active licensure. The patient's identity and physical location were verified at the time of this visit. Either the patient or their legal outside industrial sales representative has been informed of the risks and benefits of -- and alternatives to -- treatment through a remote evaluation and consents to proceed with the evaluation remotely. SUBJECTIVE Bill Reynoso is a 77 year old male who presents with 2 days of symptoms that are stable. Symptoms include: Fever (?100.4F): No or Chills: Yes feels feverish Cough: Yes Shortness of breath: No or Difficulty breathing: No Fatigue: Yes Muscle aches: No Headache: No New loss of smell or taste: No Sore throat: Yes Nasal congestion: No or Rhinorrhea: No Nausea: No or Vomiting: No Diarrhea: No OTC meds/remedies that patient has tried: fluids, rest. High risk category assessment Age > 60 years old Exposures: Sick contacts? Yes Family or close contacts with confirmed/probable COVID-19 in last 14 days? Yes OBJECTIVE Reported tactile temp. Couldn't find thermometer at home VIDEO EXAM GENERAL: Ill-appearing, but non-toxic HEENT: no conjunctival injection, pupils equal, moist mucous membranes, pharyngeal erythema noted, sinuses non-tender to self-palpation, no cervical adenopathy by self-palpation, and no exudates, uvula is midline PULMONARY: breathing comfortably on room air , no coughing noted, and no wheezing noted ASSESSMENT/PLAN (U07.1) COVID-19 virus infection (primary encounter diagnosis) 2 days of symptoms; tested positive for covid-19 this morning Pt. Has tactile temp, stable and in NAD Appears to be mildcovid-19 illness She has been vaccinated against covid-19 x 4 Risk factors for progression to severe illness includes advanced age, asthma, CAD, HTN Covid-19 pt. Information and isolation guidelines provided. Outpatient treatment options discussed Risks/benefits of treatment discussed Pt. Would like to proceed with molnupiravir and symptomatic management Follow up with PCP for persistent, worsening or new symptoms - Discussed symptom monitoring and supportive care - Red flag symptoms requiring follow up discussed Molnupiravir Eligibility and Patient Discussion [facility] Formulary Restriction Criteria: Adult outpatients 18 years and older with ALL of the following: [x] Patient has symptoms for 5 days or less [x] Not requiring hospitalization at any time for management of COVID-19 [x] Not requiring supplemental oxygen or a change in baseline supplemental oxygen [x] Not utilized for pre-exposure or post-exposure prophylaxis for prevention of COVID-19 [x] Patient is not or lactating [x] Meeting at least one of the criteria for high risk of progression to severe COVID-19: [x] Age over 65 years [] Cancer [] Chronic kidney disease [] Chronic liver disease [] Chronic lung diseases, including cystic fibrosis [] Dementia or other neurological conditions [] Diabetes (type 1 or type 2) [] Disabilities, including Down syndrome and neurodevelopmental disorders [] Heart conditions [] HIV infection [] Immunocompromised state [] Mental health conditions [] Medical related technological dependence (tracheostomy, gastrostomy, or positive pressure ventilation (not related to COVID) [] Overweight and obesity (BMI greater or equal to 25 for adults) [] Physical inactivity [] Sickle cell disease or thalassemia [] Smoking, current or former [] Solid organ or blood stem cell transplant [] Stroke or cerebrovascular disease [] Substance use disorders [] Tuberculosis [] People from racial and ethnic minority groups Criteria above are met: Yes Date of Symptom Onset: 07/11/23 Tested positive for covid today Patient received COVID vaccine: Yes / status reviewed: Females: [] Patient is not currently and there is no possibility the patient could be (select one of the following): [] test does not need to be confirmed in patients who have undergone permanent sterilization, are currently using an intrauterine system or contraceptive implant, or in whom is not possible. [] Patients not meeting conditions above: assess whether the patient is based on the first day of the last menstrual period in individuals who have regular menstrual cycles, is using reliable method of contraception correctly and consistently or have had a negative test [] A test is recommended if the individual has irregular menstrual cycles, is unsure of the first day of the last menstrual period or is not using effective contraception correctly and consistently [] Patient is not currently . is not recommended during treatment and for four days after final dose of molnupiravir. [] Females have been advised to use a reliable method of contraception correctly and consistently for the duration of treatment and for four days after the last dose of molnupiravir Males: [x] Sexually active male with partner(s) of childbearing potential has been advised to use a reliable method of contraception correctly and consistently for intercourse for the duration of treatment and for three months after the last dose of molnupiravir I have discussed the use of the investigational therapeutic, molnupiravir, for the treatment of mild to moderate COVID-19 and its use under Emergency Use Authorization with the patient. The patient was informed that molnupiravir is not an FDA approved drug and that it is authorized for use under this Emergency Use Authorization. The patient was also informed of the significant known benefits and potential risks of molnupiravir, and the extent to which such potential risks and benefits are unknown. The patient was informed that there is mandatory reporting of all medication errors and serious adverse events potentially related to molnupiravir treatment within 7 calendar days from the onset of the event and that events up to 28 days after completion of therapy need to be reported. The discussion included alternatives to receiving molnupiravir, including clinical trials, and potential the risks and benefits of those alternatives. The patient was provided electronically with the Fact Sheet for Patients, Parents and Caregivers . The patient was also instructed that in addition to the treatment with molnupiravir, he/she should continue to self-isolate and use infection control measures (e.g., wear mask, isolate, social distance, avoid sharing personal items, clean and disinfect high touch surfaces, and frequent handwashing) according to CDC guidelines. The patient stated understanding and gave verbal consent to proceeding with molnupiravir treatment. Shaista Hooks APRN.CNP July 13, 2023 12:31 PM This patient encounter involved the screening or treatment of novel coronavirus infection (COVID-19). documented in this encounter [facility] 07-13-2023 Instructions Shaista Hooks APRN.CNP - 07/13/2023 12:27 PM EST Beginning Home Isolation Isolation is used to separate people infected with SARS-CoV-2, the virus that causes COVID-19, from people who are not infected. People who are in isolation should stay home until it s safe for them to be around others. In the home, anyone sick or infected should separate themselves from others by staying in a specific sick room or area and using a separate bathroom (if available). Isolation or Quarantine: What's the difference? Quarantine keeps someone who might have been exposed to the virus away from others. Isolation keeps someone who is infected with the virus away from others, even in their home. Who needs to isolate People who have COVID-19 People who have symptoms of COVID-19 and are able to recover at home People who have no symptoms (are asymptomatic) but have tested positive for infection with SARS-CoV-2 Steps to take Stay home except to get medical care Monitor your symptoms. Stay in a separate room from other household members, if possible Use a separate bathroom, if possible Avoid contact with other members of the household and pets Don t share personal household items, like cups, towels, and utensils Wear a mask when around other people, if you are able to When to seek emergency medical attention Look for emergency warning signs* for COVID-19. If someone is showing any of these signs, seek emergency medical care immediately: Trouble breathing Persistent pain or pressure in the chest New confusion Inability to wake or stay awake Bluish lips or face *This list is not all possible symptoms. Please call your medical provider for any other symptoms that are severe or concerning to you. Call 911 or call ahead to your local emergency facility: Notify the fluoroscope operator that you are seeking care for someone who has or may have COVID-19. Ending Home Isolation - When you can be around others after you had or likely had COVID-19 When you can be around others after you had or likely had COVID-19 If You Test Positive for COVID-19 (Isolation) Everyone, regardless of vaccination status: Stay home for 5 days. Note: Day 0 is your first day of symptoms or the date of collection of a positive viral test if no symptoms. Day 1 is the first full day after symptoms developed or test specimen was collected. If you have no symptoms or your symptoms are resolving after 5 days, you can leave your house. Continue to wear a mask around others for 5 additional days. If you have a fever, continue to stay home until your fever resolves, even if it is longer than 5 days. If You Were Exposed to Someone with COVID-19 (Quarantine) If you: 1. Have been boosted OR 2. Completed the primary series of Pfizer or Moderna vaccine within the last 6 months OR 3. Completed the primary series of J&J vaccine within the last 2 months THEN: 1. Wear a mask around others for 10 days. 2. Test on day 5, if possible. If you develop symptoms get a test and stay home. If You Were Exposed to Someone with COVID-19 (Quarantine) If you: 1. Completed the primary series of Pfizer or Moderna vaccine over 6 months ago and are not boosted OR 2. Completed the primary series of J&J over 2 months ago and are not boosted OR 3. Are unvaccinated THEN: 1. Stay home for 5 days. After that continue to wear a mask around others for 5 additional days. 2. If you can't quarantine you must wear a mask for 10 days. 3. Test on day 5 if possible. If you develop symptoms get a test and stay home. I had COVID-19 or I tested positive for COVID-19 and I have a weakened immune system If you have a weakened immune system (immunocompromised) due to a health condition or medication, you might need to stay home and isolate longer than 10 days. Talk to your healthcare provider for more information. Your doctor may work with an infectious disease expert at your local health department to determine when you can be around others. How to Manage Common Symptoms Associated with COVID for Adults Fever- Fever is a temperature over 100.4 F and can occur when the body is fighting an infection. To help treat a fever: Drink plenty of fluids and stay well hydrated. Eat small amounts of easy to digest food. Rest. Your body needs rest to recover, but getting up and moving around the house frequently is a good idea. You should try to continue doing your normal daily activities (bathing, toileting, grooming, cooking), though you will probably feel tired, and need to rest often. Avoid any heavy activity or exercise, as this will increase your body temperature. Dress in light clothing and stay covered in a light sheet. Keep the room temperature cool. Take a slightly warm (not cold or cool) bath, or apply damp washcloths to the forehead and wrists. Cough- Cough is a common symptom associated with COVID and can be bothersome. To help treat a cough: Stay well hydrated. Try warm water or tea with lemon and/or honey to help soothe the cough. Use a humidifier to add moisture to the air. Try a product with menthol, like a cough drop or a rub for your chest such as Vicks, which can help reduce cough. Try cough drops. Avoid smoking and other strong odors or perfumes. Try breathing exercises to keep your lungs open and clear. Take a big deep breath through your nose and hold for 5 seconds before slowly releasing. Repeat frequently, while you are awake. Congestion- Runny nose or nasal congestion can occur with COVID. Treatment can help relieve symptoms: Try OTC nasal saline spray, or nasal saline rinse to relieve mucus congestion. Nasal strips can help keep nasal passages open, to increase airflow. Elevating your head with an extra pillow in bed can help reduce congestion. Using a humidifier can increase moisture in the air, and make breathing easier. Sore Throat- Another common symptom with COVID, can be managed at home by: Stay well hydrated. Gargle with salt water - mix teaspoon salt with 1 cup of warm water and gargle. This helps to loosen mucus in the back of the throat and may reduce discomfort. Try ice chips, popsicles or lozenges to soothe the throat. Nausea/Vomiting/Diarrhea- These are common symptoms, and staying hydrated is most important. If you are nauseous or vomiting, start with small sips of water every 10-15 minutes and increase as tolerated. You can try sucking an ice cube too. If tolerating, you can try pedialyte or Gatorade, or flat sprite or yossi-anastacio. Start slowly and increase as you are able to. Instead of meals, try smaller, more frequent snacks. Try eating bland foods like crackers, toast, rice, and applesauce. Avoid spicy, greasy or fried foods and dairy containing foods. Even if you aren't feeling hungry due to lack of smell or taste, it is important to try to take in some food when you are able. After drinking and eating, rest in an upright position for up to two hours as needed to help decrease nauseous feelings. Try closing your eyes, avoid moving and watching TV. Avoid strong odors that can make you feel more nauseated. When to seek emergency medical attention Look for emergency warning signs for COVID-19. If having any of these symptoms, seek emergency medical care immediately: Trouble breathing Persistent pain or pressure in the chest New confusion Inability to wake or stay awake Bluish lips or face *This list is not all possible symptoms. Please call your medical provider for any other symptoms that are severe or concerning to you. Fact Sheet for Patients And Caregivers Emergency Use Authorization (EUA) Of LAGEVRIO (molnupiravir) capsules For Coronavirus Disease 2019 (COVID-19) What is the most important information I should know about LAGEVRIO? LAGEVRIO may cause serious side effects, including: LAGEVRIO may cause harm to your unborn baby. It is not known if LAGEVRIO will harm your baby if you take LAGEVRIO during . LAGEVRIO is not recommended for use in . LAGEVRIO has not been studied in . LAGEVRIO was studied in animals only. When LAGEVRIO was given to animals, LAGEVRIO caused harm to their unborn babies. You and your healthcare provider may decide that you should take LAGEVRIO during if there are no other COVID-19 treatment options approved or authorized by the FDA that are accessible or clinically appropriate for you. If you and your healthcare provider decide that you should take LAGEVRIO during , you and your healthcare provider should discuss the known and potential benefits and the potential risks of taking LAGEVRIO during . For individuals who are able to become : You should use a reliable method of control (contraception) consistently and correctly during treatment with LAGEVRIO and for 4 days after the last dose of LAGEVRIO. Talk to your healthcare provider about reliable control methods. Before starting treatment with LAGEVRIO your healthcare provider may do a test to see if you are before starting treatment with LAGEVRIO. Tell your healthcare provider right away if you become or think you may be during treatment with LAGEVRIO. Registry: There is a registry for individuals who take LAGEVRIO during . The purpose of this program is to collect information about the health of you and your baby. If you are or become during treatment with LAGEVRIO, you are encouraged to report your use of LAGEVRIO during to this registry at https://covid-pr.Enuygun.com.Medalogix or . For individuals who are sexually active with partners who are able to become : It is not known if LAGEVRIO can affect sperm. While the risk is regarded as low, animal studies to fully assess the potential for LAGEVRIO to affect the babies of males treated with LAGEVRIO have not been completed. A reliable method of control (contraception) should be used consistently and correctly during treatment with LAGEVRIO and for at least 3 months after the last dose. The risk to sperm beyond 3 months is not known. Studies to understand the risk to sperm beyond 3 months are ongoing. Talk to your healthcare provider about reliable control methods. Talk to your healthcare provider if you have questions or concerns about how LAGEVRIO may affect sperm. You are being given this fact sheet because your healthcare provider believes it is necessary to provide you with LAGEVRIO for the treatment of adults with a current diagnosis of mild-tomoderate coronavirus disease 2019 (COVID-19) who are at high risk for progression to severe COVID-19, including hospitalization or , and for whom other COVID-19 treatment options approved or authorized by the FDA are not accessible or clinically appropriate. The [place] Food and Drug Administration (FDA) has issued an Emergency Use Authorization (EUA) to make LAGEVRIO available during the COVID-19 pandemic (for more details about an EUA please see What is an Emergency Use Authorization? at the end of this document). LAGEVRIO is not an FDA-approved medicine in the [place]. Read this Fact Sheet for information about LAGEVRIO. Talk to your healthcare provider about your options if you have any questions. It is your choice to take LAGEVRIO. What is COVID-19? COVID-19 is caused by a virus called a coronavirus. You can get COVID-19 through close contact with another person who has the virus. COVID-19 illnesses have ranged from very squr-dc-yszatj, including illness resulting in . While information so far suggests that most COVID-19 illness is mild, serious illness can happen and may cause some of your other medical conditions to become worse. Older people and people of all ages with severe, long lasting (chronic) medical conditions like heart disease, lung disease and diabetes, for example seem to be at higher risk of being hospitalized for COVID-19. What is LAGEVRIO? LAGEVRIO is an investigational medicine used to treat adults with a current diagnosis of mild to moderate COVID-19: who are at high risk for progression to severe COVID-19 including hospitalization or , and for whom other COVID-19 treatment options approved or authorized by the FDA are not accessible or clinically appropriate. The FDA has authorized the emergency use of LAGEVRIO for the treatment of mild-tomoderate COVID-19 in adults under an EUA. For more information on EUA, see the What is an Emergency Use Authorization (EUA)? section at the end of this Fact Sheet. LAGEVRIO is not authorized: for use in people less than 18 years of age. for prevention of COVID-19. for people needing hospitalization for COVID-19. for use for longer than 5 consecutive days. What should I tell my healthcare provider before I take LAGEVRIO? Tell your healthcare provider if you: have any allergies are or plan to breastfeed have any serious illnesses Take any medicines including prescription, eiol-gus-akjktif medicines, vitamins, and herbal products. How do I take LAGEVRIO? Take LAGEVRIO exactly as your healthcare provider tells you to take it. Take 4 capsules of LAGEVRIO every 12 hours (for example, at 8 am and at 8 pm) Take LAGEVRIO for 5 days. It is important that you complete the full 5 days of treatment with LAGEVRIO. Do not stop taking LAGEVRIO before you complete the full 5 days of treatment, even if you feel better. Take LAGEVRIO with or without food. You should stay in isolation for as long as your healthcare provider tells you to. Talk to your healthcare provider if you are not sure about how to properly isolate while you have COVID-19. Swallow LAGEVRIO capsules whole. Do not open, break, or crush the capsules. If you cannot swallow capsules whole, tell your healthcare provider. If your healthcare provider prescribes LAGEVRIO and tells you to take or give a dose through a nasogastric (NG) or orogastric (OG) tube, follow the instructions below: How to take or give a dose of LAGEVRIO through a nasogastric (NG) or orogastric (OG) feeding tube. You must have an NG or OG that is size 12 [place] (FR) or larger. If you miss a dose of LAGEVRIO: If it has been less than 10 hours since the missed dose, take it as soon as you remember. If it has been more than 10 hours since the missed dose, skip the missed dose and take your dose at the next scheduled time. Do not double the dose of LAGEVRIO to make up for a missed dose. How to take or give a dose of LAGEVRIO through a nasogastric (NG) or orogastric (OG) feeding tube: Wash your hands well with soap and water. Gather the supplies you will need to take or give the prescribed dose of LAGEVRIO. 4 LAGEVRIO capsules 1 liquid measuring cup with mL markings to measure 40 mL of room temperature water 1 clean container with a lid 1 catheter tip syringe. Your healthcare provider should tell you what size catheter tip syringe you will need to take or give a dose of LAGEVRIO. Place the needed supplies on a clean work surface. Follow your healthcare provider s instructions on how to flush the NG or OG feeding tube. Flush the NG or OG feeding tube with 5 mL of water before taking or giving a dose of LAGEVRIO. Carefully open 4 LAGEVRIO capsules, one at a time, and empty the contents into a clean container. Use the liquid measuring cup to measure 40 mL of room temperature water and add to the container containing the capsule contents. Place the lid on the container. Shake to mix the capsule contents and water well for 3 minutes. The capsule contents may not dissolve completely. Remove the lid from the container and draw up all the LAGEVRIO and water mixture into a catheter tip syringe. Give all of the mixture right away through the NG or OG feeding tube. Do not keep the mixture for future use. If any capsule contents are left in the container: Add 10 mL of water to the container, and mix to loosen any capsule contents that are left in the container. Use the catheter tip syringe to draw up all of the mixture in the container. Give the mixture through the NG or OG feeding tube. Repeat this process as needed until you no longer see any capsule contents left in the container or catheter tip syringe. Use the same catheter tip syringe to flush the NG or OG feeding tube 2 times with 5 mL of water (10mL total). Rinse the container, lid and catheter tip syringe well with clean water after use. Place on a clean paper towel until next use. What are the important possible side effects of LAGEVRIO? See, What is the most important information I should know about LAGEVRIO? Allergic Reactions. Allergic reactions can happen in people taking LAGEVRIO, even after only 1 dose. Stop taking LAGEVRIO and call your healthcare provider right away if you get any of the following symptoms of an allergic reaction: hives rapid heartbeat trouble swallowing or breathing swelling of the mouth, lips, or face throat tightness hoarseness skin rash The most common side effects of LAGEVRIO are: diarrhea nausea dizziness These are not all the possible side effects of LAGEVRIO. Not many people have taken LAGEVRIO. Serious and unexpected side effects may happen. This medicine is still being studied, so it is possible that all of the risks are not known at this time. What other treatment choices are there? Veklury (remdesivir) is FDA-approved as an intravenous (IV) infusion for the treatment of mildto-moderate COVID-19 in certain adults and children. Talk with your doctor to see if Veklury is appropriate for you. Like LAGEVRIO, FDA may also allow for the emergency use of other medicines to treat people with COVID-19. Go to https://www.fda.gov/emergency-pre hfohqpful-juf-demptolt/mcm-legalr vtqdjtazi-qri-enkthv-framework/em zqlzruo-fpo-jhcnnbpwhhrbn for more information. It is your choice to be treated or not to be treated with LAGEVRIO. Should you decide not to take it, it will not change your standard medical care. What if I am ? is not recommended during treatment with LAGEVRIO and for 4 days after the last dose of LAGEVRIO. If you are or plan to breastfeed, talk to your healthcare provider about your options and specific situation before taking LAGEVRIO. How do I report side effects with LAGEVRIO? Contact your healthcare provider if you have any side effects that bother you or do not go away. Report side effects to FDA MedWatch at www.fda.gov/medwatch or call 2-514-MOR-1144 (1261.651.8847). How should I store LAGEVRIO? Store LAGEVRIO capsules at room temperature between 68 F to 77 F (20 C to 25 C). Keep LAGEVRIO and all medicines out of the reach of children. How can I learn more about COVID-19? Ask your healthcare provider. Visit www.cdc.gov/COVID19 Contact your local or state public health department. Call [employer] at (toll free in the [place] Visit www.molnupiravir.Medalogix What Is an Emergency Use Authorization (EUA)? The [place] FDA has made LAGEVRIO available under an emergency access mechanism called an Emergency Use Authorization (EUA) The EUA is supported by a [employer] and Human Service ([facility]) declaration that circumstances exist to justify emergency use of drugs and biological products during the COVID-19 pandemic. LAGEVRIO for the treatment of adults with a current diagnosis of jqwo-gs-sswmgmys COVID-19 who are at high risk for progression to severe COVID-19, including hospitalization or , and for whom alternative COVID-19 treatment options approved or authorized by FDA are not accessible or clinically appropriate, has not undergone the same type of review as an FDAapproved product. In issuing an EUA under the COVID-19 public health emergency, the FDA has determined, among other things, that based on the total amount of scientific evidence available including data from adequate and well-controlled clinical trials, if available, it is reasonable to believe that the product may be effective for diagnosing, treating, or preventing COVID-19, or a serious or life-threatening disease or condition caused by COVID-19; that the known and potential benefits of the product, when used to diagnose, treat, or prevent such disease or condition, outweigh the known and potential risks of such product; and that there are no adequate, approved, and available alternatives. All of these criteria must be met to allow for the product to be used in the treatment of patients during the COVID-19 pandemic. The EUA for LAGEVRIO is in effect for the duration of the COVID-19 declaration justifying emergency use of LAGEVRIO, unless terminated or revoked (after which LAGEVRIO may no longer be used under the EUA). Jaren. for: [employer] [place] [address], [facility] For patent information: [email or web address] Copyright [employer] [place], [place], [place] and its affiliates. All rights reserved. [id number] Revised: September 2022 documented in this encounter [facility] 07-12-2023 Note HNO ID: [id number] Author: Shaista Hooks APRN.CNP Service: ? Author Type: Nurse Practitioner Type: Progress Notes Filed: 07/12/2023 11:00 AM Note Text: Pt. Not in WR Notification and links sent. Appointment cancelled. Shaista Hooks APRN.CNP [facility] 07-12-2023 Instructions Shaista Hooks APRN.CNP - 07/12/2023 10:57 AM EST Beginning Home Isolation Isolation is used to separate people infected with SARS-CoV-2, the virus that causes COVID-19, from people who are not infected. People who are in isolation should stay home until it s safe for them to be around others. In the home, anyone sick or infected should separate themselves from others by staying in a specific sick room or area and using a separate bathroom (if available). Isolation or Quarantine: What's the difference? Quarantine keeps someone who might have been exposed to the virus away from others. Isolation keeps someone who is infected with the virus away from others, even in their home. Who needs to isolate People who have COVID-19 People who have symptoms of COVID-19 and are able to recover at home People who have no symptoms (are asymptomatic) but have tested positive for infection with SARS-CoV-2 Steps to take Stay home except to get medical care Monitor your symptoms. Stay in a separate room from other household members, if possible Use a separate bathroom, if possible Avoid contact with other members of the household and pets Don t share personal household items, like cups, towels, and utensils Wear a mask when around other people, if you are able to When to seek emergency medical attention Look for emergency warning signs* for COVID-19. If someone is showing any of these signs, seek emergency medical care immediately: Trouble breathing Persistent pain or pressure in the chest New confusion Inability to wake or stay awake Bluish lips or face *This list is not all possible symptoms. Please call your medical provider for any other symptoms that are severe or concerning to you. Call 911 or call ahead to your local emergency facility: Notify the fluoroscope operator that you are seeking care for someone who has or may have COVID-19. Ending Home Isolation - When you can be around others after you had or likely had COVID-19 When you can be around others after you had or likely had COVID-19 If You Test Positive for COVID-19 (Isolation) Everyone, regardless of vaccination status: Stay home for 5 days. Note: Day 0 is your first day of symptoms or the date of collection of a positive viral test if no symptoms. Day 1 is the first full day after symptoms developed or test specimen was collected. If you have no symptoms or your symptoms are resolving after 5 days, you can leave your house. Continue to wear a mask around others for 5 additional days. If you have a fever, continue to stay home until your fever resolves, even if it is longer than 5 days. If You Were Exposed to Someone with COVID-19 (Quarantine) If you: 1. Have been boosted OR 2. Completed the primary series of Pfizer or Moderna vaccine within the last 6 months OR 3. Completed the primary series of J&J vaccine within the last 2 months THEN: 1. Wear a mask around others for 10 days. 2. Test on day 5, if possible. If you develop symptoms get a test and stay home. If You Were Exposed to Someone with COVID-19 (Quarantine) If you: 1. Completed the primary series of Pfizer or Moderna vaccine over 6 months ago and are not boosted OR 2. Completed the primary series of J&J over 2 months ago and are not boosted OR 3. Are unvaccinated THEN: 1. Stay home for 5 days. After that continue to wear a mask around others for 5 additional days. 2. If you can't quarantine you must wear a mask for 10 days. 3. Test on day 5 if possible. If you develop symptoms get a test and stay home. I had COVID-19 or I tested positive for COVID-19 and I have a weakened immune system If you have a weakened immune system (immunocompromised) due to a health condition or medication, you might need to stay home and isolate longer than 10 days. Talk to your healthcare provider for more information. Your doctor may work with an infectious disease expert at your local health department to determine when you can be around others. How to Manage Common Symptoms Associated with COVID for Adults Fever- Fever is a temperature over 100.4 F and can occur when the body is fighting an infection. To help treat a fever: Drink plenty of fluids and stay well hydrated. Eat small amounts of easy to digest food. Rest. Your body needs rest to recover, but getting up and moving around the house frequently is a good idea. You should try to continue doing your normal daily activities (bathing, toileting, grooming, cooking), though you will probably feel tired, and need to rest often. Avoid any heavy activity or exercise, as this will increase your body temperature. Dress in light clothing and stay covered in a light sheet. Keep the room temperature cool. Take a slightly warm (not cold or cool) bath, or apply damp washcloths to the forehead and wrists. Cough- Cough is a common symptom associated with COVID and can be bothersome. To help treat a cough: Stay well hydrated. Try warm water or tea with lemon and/or honey to help soothe the cough. Use a humidifier to add moisture to the air. Try a product with menthol, like a cough drop or a rub for your chest such as Vicks, which can help reduce cough. Try cough drops. Avoid smoking and other strong odors or perfumes. Try breathing exercises to keep your lungs open and clear. Take a big deep breath through your nose and hold for 5 seconds before slowly releasing. Repeat frequently, while you are awake. Congestion- Runny nose or nasal congestion can occur with COVID. Treatment can help relieve symptoms: Try OTC nasal saline spray, or nasal saline rinse to relieve mucus congestion. Nasal strips can help keep nasal passages open, to increase airflow. Elevating your head with an extra pillow in bed can help reduce congestion. Using a humidifier can increase moisture in the air, and make breathing easier. Sore Throat- Another common symptom with COVID, can be managed at home by: Stay well hydrated. Gargle with salt water - mix teaspoon salt with 1 cup of warm water and gargle. This helps to loosen mucus in the back of the throat and may reduce discomfort. Try ice chips, popsicles or lozenges to soothe the throat. Nausea/Vomiting/Diarrhea- These are common symptoms, and staying hydrated is most important. If you are nauseous or vomiting, start with small sips of water every 10-15 minutes and increase as tolerated. You can try sucking an ice cube too. If tolerating, you can try pedialyte or Gatorade, or flat sprite or yossi-anastacio. Start slowly and increase as you are able to. Instead of meals, try smaller, more frequent snacks. Try eating bland foods like crackers, toast, rice, and applesauce. Avoid spicy, greasy or fried foods and dairy containing foods. Even if you aren't feeling hungry due to lack of smell or taste, it is important to try to take in some food when you are able. After drinking and eating, rest in an upright position for up to two hours as needed to help decrease nauseous feelings. Try closing your eyes, avoid moving and watching TV. Avoid strong odors that can make you feel more nauseated. When to seek emergency medical attention Look for emergency warning signs for COVID-19. If having any of these symptoms, seek emergency medical care immediately: Trouble breathing Persistent pain or pressure in the chest New confusion Inability to wake or stay awake Bluish lips or face *This list is not all possible symptoms. Please call your medical provider for any other symptoms that are severe or concerning to you. documented in this encounter [facility] 07-12-2023 History of Present illness Narrative Pt. Not in WR Notification and links sent. Appointment cancelled. Shaista Hooks APRN.CNP documented in this encounter [facility] 07-12-2023 Miscellaneous Notes Prescription sent. Can review further at follow up appointment. Leighann Carmichael APRN.CNP Pt returned call and given Leighann Carmichael's information and recommendations. Pt uses [facility]. Pharmacy changed for pended med. Left message on Anju's VM to return call. Please let patient know I have heard back from his direct marketing manager and I am prescribing cialis as discussed in appointment. He does need to verify with his surgeon that there is no limitation post surgery. Where does he want the Cialis sent to? 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 Pt had pancreatitis, had imaging, CT showed pancreatitis resolved MRI 04/07: 1.3 hemorrhagic cyst R upper pole, B2F, 1.2 cm B2F, hemorrhagic cyst upper pole on L too I reviwed and cysts are complex but not susp RCC, agree with B2f Voids well on flomax, Afib (no AC), HTN, DM, Mitral valve hypertrophy, sleep apnea, anal fistula, CAD On LD ASA, COPD UA negative WE advised bmp and dedicated renal CT in 6 mo 11/06: CT with 1 cm B2 lesions in each kidney, no change, I reviewed agreed, we see in 12 mo with US Will stay on flomax, PCP follows for psa, cult neg 12/06: nocturia, we will soon to check PVR, consider adding proscar 01/06: apparently US shows mass R upper pole up to 2 cm, we see with CT in February or April 01: SCr 1.43, eGFR 49, CT all stable, B2 cysts, we see in 12 mo with bmp and US 11/07: CXR neg, US all stable, no change cysts, psa 1.32 12/09: US all stable or improved, no susp lesions, SCr 1.38, eGFR 51, psa 1.64, shelley fine, we see 2 yrs with PSA and SHELLEY 10/12: mild orchalgia, US testes neg, althouh B varicoceles, will Rx NSAI, RTC 2 yrs with US kidneys and psa 02/10, doing well, no testicular pain, shelley fine, psa 1.69, US neg 09/14: psa 1.91, shelley fine, UA neg, some LUTS, will go to flomax 0.8, we will see 12 mo with psa and US 08/14: US with mildly complex cysts, min change, 09/29/20 US fine 01/13: psa 1.79, 23% free, US 10/16, fine, all stable, increased LUTS, we put on proscar, shelley fine, PVR 8 cc Now on proscar and flomax BID, we see 12 mo with psa, reassess LUTS then 01/14, on proscar and flomax 0.8, SHELLEY fine, UA fine, PVR 78, RTC 12 mo with psa and US 03/16: US fine, some calcified cysts in kidneys and some stones in kidney, to see endourol team 12/27/22, LUTS despite flomax x 2 and proscar, will have him see bph team, consider MIS turp, pvr 64, psa 0.83 01/15: US fine, some mildly complex cysts that are stasble, small, < 2 cm We see 6 mo with psa Hx complex cyst, B2F, Hx LUTS on proscar and flomax, was to see BPH colleagues about this For psa and follouwp The above represents a brief summary of the patient's history as of the last clinic visit or hospitalization. Interim history: Recent radiographic studies: RBUS 05/22/2023 bilateral cysts Recent labs: see below Clinical status: stable, no change Voiding status and ROS: voids well, no gross hematuria Reason for today's visit: follow up ASSESSMENT & PLAN I saw and examined in detail, and discussed with MS, and agree with essential components of Hx, PE and A/P. Briefly, This is a 77 year old male who presented today in the clinic for follow up of: Hx complex cyst, B2F, Hx LUTS on proscar and flomax, was to see BPH colleagues about this US shows stable cysts PSA stable at 1.59. SHELLEY today not suspicious Plan: I spent a total of 25 minutes on the date of the service which included preparing to see the patient, [id number] patient care, completing clinical documentation, performing a medically appropriate examination, and counseling and educating the patient/family/caregiver. Will continue to monitor, psa and shelley are stable, and US fine RTC in 12 months with PSA Naveed Tyler MD DATA REVIEW IMAGING RBUS 05/22/2023 bilateral cysts LABS Creatinine Date Value Ref Range Status 07/04/2023 1.21 0.73 - 1.22 mg/dL Final 05/06/2023 1.18 0.73 - 1.22 mg/dL Final 12/31/2022 1.23 (H) 0.73 - 1.22 mg/dL Final 09/17/2022 1.26 (H) 0.73 - 1.22 mg/dL Final PSA (ng/mL) Date Value 07/04/2023 1.59 12/31/2022 0.83 03/27/2022 0.74 12/29/2020 1.79 09/24/2019 1.91 02/19/2018 1.69 12/08/2015 1.64 PSA Screening (ng/mL) Date Value 03/14/2022 1.03 = PAST MEDICAL HISTORY/COMORBIDITIES = 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 Elevated prostate specific antigen (PSA) 11/22/2014 Family history of malignant neoplasm of gastrointestinal tract History of tear of ACL (anterior cruciate ligament) 1989 right knee Internal hemorrhoids without mention of complication Mitral valve disorders(424.0) Obstructive sleep apnea CPAP Other symptoms involving digestive system(787.99) Personal history of colonic polyps Colon polyps Snoring Unspecified essential hypertension PAST SURGICAL HISTORY Procedure Laterality Date ADENOIDECTOMY PRIMARY <AGE 14 Adenoidectomy CARDIOVERSION June 2021 CATARACT EXTRACTION HX Bilateral COLONOSCOPY FLX DX W/COLLJ SPEC WHEN PFRMD 12/21/2002 Colonoscopy COLONOSCOPY FLX DX W/COLLJ SPEC WHEN PFRMD 05/08/2007 Colonoscopy COLONOSCOPY FLX DX W/COLLJ SPEC WHEN PFRMD 06/05/2010 COLONOSCOPY FLX DX W/COLLJ SPEC WHEN PFRMD 09/07/2013 Repeat 4 years for screening COLONOSCOPY FLX DX W/COLLJ SPEC WHEN PFRMD 11/11/2017 Colonoscopy ESOPHAGOGASTRODUODENOSCOPY TRANSORAL DIAGNOSTIC 05/08/2007 EGD PAST SURGICAL HISTORY OF anal fissurectomy PAST SURGICAL HISTORY OF 2018 cyst removed behind left ear PAST SURGICAL HISTORY OF 06/2022 cardioversion REMV CATARACT EXTRACAP,INSERT LENS SIGMOIDOSCOPY FLX DX W/COLLJ SPEC BR/WA IF PFRMD 08/01/2004 Sigmoidoscopy TONSILLECTOMY PRIMARY/SECONDARY <AGE 14 Tonsillectomy REVIEW OF SYSTEMS CONSTITUTIONAL: No fevers, chills, nightsweats, unintended weight loss GI: No dysphagia/odynophagia, problematic reflux, constipation, diarrhea, changes in stool habits, hematochezia, melena. : No new urinary complaints, including dysuria, gross hematuria or pyuria. INTEGUMENTARY: No new skin changes (rash, new or changing mole, new growth) All other systems were reviewed and are negative. PHYSICAL EXAM General: Well appearing, alert, in no acute distress, well-hydrated, well nourished ENT: Moist mucous membranes. Cardiovascular: Well perfused Respiratory: No respiratory distress Abdomen: Non-distended Skin: Skin color, texture, turgor normal, no suspicious rashes or lesions Neurological: Normal speech. Extremities: Extremities normal. No deformities, edema, or skin discoloration SHELLEY: not suspicious documented in this encounter [facility] documented in this encounter [facility] History of Present illness Narrative* Dennis Maddox MD - 07/10/2023 5:40 AM EST FOLLOW UP VISIT - HERNIA NAME: Bill Reynoso CLINIC NO.: [id number] DATE OF SERVICE: 07/09/2023 : 1945 REFERRING PHYSICIAN: Jo Woods MD Bill is a patient I am following for a right inguinal hernia. I performed a open right inguinal hernia repair with mesh on June 27, 2023. The patient currently notes mild incisional pulling after climbing a step ladder. his appetite has been good. he denies fever, chills or abdominal pain. he does note some improving incisional discomfort. he notes no bulges at the operative site VITALS: There were no vitals taken for this visit. On examination, the abdomen is benign. The incision is healing well without signs of infection or inflammation. There are no signs of recurrent hernia formation. Assessment IMPRESSION: status post open right inguinal hernia repair with mesh PLAN: If the patient notes any problems, he should contact me immediately. he may return to his regular activities as tolerated, with the exception of no lifting greater than 20 pounds for the next 6 weeks. Diagnoses: (R10.31) Right groin pain (primary encounter diagnosis) Return to Clinic: The patient is instructed to follow-up with me as needed. Dennis Maddox MD [facility] History of Present illness Narrative* Leighann Carmichael APRN.HABILITATIVE INTERVENTIONIST - 07/08/2023 2:48 PM EST CC: Patient presents with: F/U 6 months HPI Bill Reynoso is a 77 year old male who presents today for routine follow up. HTN HLD and A-fib: Mr. Reynoso indicates that he is feeling well and denies any symptoms referable to elevated blood pressure. Specifically denies headache, chest pain, palpitations, dyspnea, and peripheral edema. Patient denies any side effects of his medication(s) and is compliant with their regimen but did not increase his doxazosin as previously instructed. He does check BP's away from thisoffice with average BP's in the 140s/80s range. Bill works out regularly 7 times per week with walking. He watches his diet for sodium, low fat and low cholesterol most of the time. Last 3 Encounter BP Readings: Date: BP: 07/08/2023 140/82 06/27/2023 94/53 06/21/2023 106/61 Had hernia surgery 11 days ago and has had notable low heart rate was holding metoprolol after surgery but needing parameters. Was also anemic post surgery. DIABETES MELLITUS: Mr. Reynoso denies excessive thirst or increased frequency of urination, chestpain or dyspnea , numbness, tingling or pain in extremities, new or unusual visual symptoms, low sugar/hypoglycemic reactions, weight loss/gain, lightheadedness/dizziness, and bowel changes/loose stools. Follows a diabetic diet some of the time. He is compliant with medication(s) and is tolerating med(s) without any side effects. He reports checking his glucose on a infrequent to not at all basisschedule. Patient's last HgA1C was Hemoglobin A1C (%) Date Value 07/04/2023 7.0 12/31/2022 6.9 03/21/2021 6.9 09/29/2020 6.9 Hemoglobin A1C (POCT) (%) Date Value 09/22/2021 6.6 ) Was on ED medicine, rody, 20 years ago. Has noticed over the last few years is having difficulty getting an erection. Does not have a morning erection either. REVIEW OF SYSTEMS General: no fevers, no chills, no night sweats, no recurrent infections, no change in appetite, no change in energy, and no significant changes in weight Respiratory: no cough, no wheezing, no shortness of breath, no hemoptysis Cardiovascular: no chest pain, no chest pressure, no palpitations, and no swelling GI: No nausea, vomiting, or diarrhea Endocrine: no fatigue, no polyuria, no polyphagia, and no polydipsia Neurologic: No headache, weakness, numbness, tingling, dizziness, memory loss, syncope. 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 Elevated prostate specific antigen (PSA) 11/22/2014 Family history of malignant neoplasm of gastrointestinal tract History of tear of ACL (anterior cruciate ligament) 1989 right knee Internal hemorrhoids without mention of complication Mitral valve disorders(424.0) Obstructive sleep apnea CPAP Other symptoms involving digestive system(787.99) Personal history of colonic polyps Colon polyps Snoring Unspecified essential hypertension PAST SURGICAL HISTORY Procedure Laterality Date ADENOIDECTOMY PRIMARY <AGE 14 Adenoidectomy CARDIOVERSION June 2021 CATARACT EXTRACTION HX Bilateral COLONOSCOPY FLX DX W/COLLJ SPEC WHEN PFRMD 12/21/2002 Colonoscopy COLONOSCOPY FLX DX W/COLLJ SPEC WHEN PFRMD 05/08/2007 Colonoscopy COLONOSCOPY FLX DX W/COLLJ SPEC WHEN PFRMD 06/05/2010 COLONOSCOPY FLX DX W/COLLJ SPEC WHEN PFRMD 09/07/2013 Repeat 4 years for screening COLONOSCOPY FLX DX W/COLLJ SPEC WHEN PFRMD 11/11/2017 Colonoscopy ESOPHAGOGASTRODUODENOSCOPY TRANSORAL DIAGNOSTIC 05/08/2007 EGD PAST SURGICAL HISTORY OF anal fissurectomy PAST SURGICAL HISTORY OF 2019 cyst removed behind left ear PAST SURGICAL HISTORY OF 06/2022 cardioversion REMV CATARACT EXTRACAP,INSERT LENS SIGMOIDOSCOPY FLX DX W/COLLJ SPEC BR/WA IF PFRMD 08/01/2004 Sigmoidoscopy TONSILLECTOMY PRIMARY/SECONDARY <AGE 14 Tonsillectomy ALLERGIES Adhesive, Dust Mites, and Naprosyn [Naproxen] MEDICATIONS apixaban (ELIQUIS) 5 mg tab(s) Take 1 tablet by mouth twice daily. sucralfate (CARAFATE) 1 gram tablet Take 1 tablet by mouth two times a day. pravastatin (PRAVACHOL) 40 mg tablet Take 1 tablet by mouth daily at bedtime. pantoprazole DR (PROTONIX) 40 mg tablet Take 1 tablet by mouth twice daily. flecainide (TAMBOCOR) 100 mg tablet TAKE ONE TABLET BY MOUTH TWICE DAILY tamsulosin (FLOMAX) 0.4 mg TAKE 2 CAPSULES BY MOUTH EVERY DAY 1/2 HOUR AFTER SAME MEAL EVERY DAY- MAXIMUM 0.8MG DAILY finasteride (PROSCAR) 5 mg tablet Take 1 tablet by mouth once daily. amLODIPine (NORVASC) 5 mg tablet Take 1 tablet by mouth once daily. levalbuterol tartrate HFA (XOPENEX HFA) 45 mcg/actuation inhaler Inhale 1-2 Puffs as instructed every 4 hours as needed for wheezing/shortness of breath. doxazosin (CARDURA) 4 mg tablet Take 1 tablet by mouth once daily. lisinopril (ZESTRIL) 20 mg tablet Take 1 tablet by mouth once daily. metoprolol succinate ER (TOPROL XL) 25 mg 24 hr tablet Take 1 tablet by mouth twice daily. blood sugar diagnostic (ACCU-CHEK GUIDE TEST STRIPS) test strip Use as instructed Lancing Device with Lancets (ACCU-CHEK MULTICLIX LANCET) 1 Each once daily. Blood Glucose Control High and Low (ACCU-CHEK GUIDE L1-L2 CTRL HAYDE) soln 1 Each as needed. metFORMIN ER (GLUCOPHAGE XR) 500 mg 24 hr tablet TAKE 2 TABLETS BY MOUTH TWICE DAILY BEFORE MEALS. Lancets lancets Test blood sugar(s) once times daily. Dx: Type 2 DM - Controlled E11.9 Insulin: No caodhunzfoo-tjfbwjlwe-wssgqpmr (TRELEGY ELLIPTA) 200-62.5-25 mcg inhalation powder Inhale 1 Puff asinstructed once daily. CPAP AutoPAP 12-20 cmH2O, nasal mask, humidity, filters. Lifetime supplies. Dx: 327.23. Fax compliance rpt to [place] in 6 weeks. magnesium oxide (MAG-OXIDE ORAL) Take 400 mg by mouth once daily. BIOTIN ORAL Take by mouth. COQ10, LIPOSOMAL UBIQUINOL, ORAL Take by mouth once daily. Take for two weeks then restart statin. multivitamins w-minerals/lut(CENTRUM SILVER TAB) Take one(1) tablet daily. ASPIRIN 81 MG TAB Take by mouth once daily. oxyCODONE-acetaminophen (PERCOCET) 5-325 mg tablet Take 1 tablet by mouth four times a day as needed for pain. (Patient not taking: Reported on 07/08/2023) FAMILY HISTORY Problem Relation Age of Onset Colon Cancer Mother Hypertension Mother Cancer Father Prostate Hypertension Father Colon Cancer Sister Breast Cancer Sister Clotting Disorder No Family History Anesthesia Problems No Family History Malig Hyperthermia No Family History Social History Tobacco Use Smoking status: Never Smokeless tobacco: Never Tobacco comments: No one in household smokes. Vaping Use Vaping Use: Never used Substance Use Topics Alcohol use: Yes Alcohol/week: 2.5 - 5.0 standard drinks of alcohol Types: 1 - 2 Cans of Beer (12oz) per week Comment: once every 2 weeks Drug use: No PHYSICAL EXAM BP 140/82 (BP Site: Left Arm, BP Position: Sitting, BP Cuff Size: Regular Adult) Pulse (!) 54 Resp 16 Ht 176 cm (5' 9.29 ) Wt 106.6 kg (235 lb) SpO2 95% BMI 34.41 kg/m General Appearance: well appearing, in no acute distress, alert Pysch: mood and affect broad and appropriate Skin: Skin color, texture, turgor normal for age; Eyes: conjunctiva pink and moist, no icterus, sclera white, non-injected Lungs: Lungs clear to auscultation. No wheezing, rhonchi, rales. Heart: RRR without murmur, gallop, or rubs. No ectopy Abdomen: Abdomen soft, non-tender. Bowel sounds normal. No masses, organomegaly Extremities: No deformities, edema, skin discoloration, clubbing or cyanosis. Good capillary refill. Feet:Shoes and socks removed, No deformities, ulcers, calluses, normal distal pulses, sensitive to 10 gm monofilament, and vibratory perception normal Health maintenance reviewed with patient: Hepatitis B Vaccine(1 of 3 - Risk 3-dose series) Never done RSV Vaccine(1 - 1-dose 60+ series) Never done Dilated Retinal Exam due on 02/23/2023 Urine Albumin:Creatinine Ratio due on 03/14/2023 Diabetic Foot Exam due on 03/21/2023 LDL Cholesterol due on 03/27/2023 Covid-19 Vaccine( season) due on 05/29/2024 HbA1C due on 01/02/2024 BP Controlled (<130/80) due on 01/03/2024 Serum Creatinine due on 07/04/2024 Annual PCP Team Chronic Disease Visit due on 07/08/2024 DTaP,Tdap,Td Vaccine(2 - Td or Tdap) due on 10/14/2026 Colorectal Cancer Screening due on 12/22/2027 Spirometry Completed Influenza Vaccine Completed Advance Directive Discussion Completed Depression Assessment Completed Hepatitis C Screening Completed Shingrix Vaccine Completed Pneumococcal Vaccine: 65+ Completed DATA REVIEWED: Most recent labs ASSESSMENT/PLAN: 1. Type 2 diabetes mellitus with stage 3a chronic kidney disease, without long- term current use of insulin (HCC) - ICD9: 250.40, 585.3, ICD10: E11.22, N18.31 (primary diagnosis) - Worsening control - Continue current medications - no med changes at this time, patient to work on diet and healthy lifestyle changes. If no improvement at next check will need to make medication changes - Blood glucose monitoring on a once daily schedule - Counseled on healthy diet and regular exercise - Discussed need for and benefit of weight loss. BMI 34.41 kg/(m^2) - eGFR: 62 Stable - Counseled on avoiding NSAIDs, adequate hydration - ALBUMIN/CREAT RATIO RND UR 2. PAF (paroxysmal atrial fibrillation) (HCC) - ICD9: 427.31, ICD10: I48.0 - controlled and asymptomatic - continue with current medications and recommendations by cardiology - METOPROLOL SUCCINATE ER 25 MG TABLET,EXTENDED RELEASE 24 HR - TSH BLD 3. Essential hypertension - ICD9: 401.9, ICD10: I10 - Uncontrolled - Continue current medications - increase doxazosin as previously instructed and follow up in 4 weeks for re-evaluation - Recommend home blood pressure monitoring, to bring results to next visit - Encouraged sodium restriction, DASH or Mediterranean diet - Recommend regular aerobic exercise 4. Hyperlipidemia, unspecified hyperlipidemia type - ICD9: 272.4, ICD10: E78.5 - Control undetermined, due for labs - Continue current medications - Counseled on healthy diet and regular exercise - Discussed need for and benefit of weight loss. BMI 34.41 kg/(m^2) - LIPID PANEL BASIC 5. Erectile dysfunction, unspecified erectile dysfunction type - ICD9: 607.84, ICD10: N52.9 - reaching out to cardiology prior to starting cialis. Also evaluating for other cause. - TESTOSTERONE, FREE AND TOTAL - TSH BLD 6. Anemia, unspecified type - ICD9: 285.9, ICD10: D64.9 - CBC + DIFF Prescription instructions reviewed with patient as applicable. Potential red flag symptoms discussed with the patient. Reviewed appropriate action plan to take if red flag symptoms occur. Patient agreeable to treatment plan. Leighann Carmichael APRN.CNP [facility] History of Present illness Narrative* Dennis Maddox MD - 06/26/2023 1:07 PM EDT Patient noted persistent pain and bulge while I was out of town requested to be scheduled for surgery. The patient was scheduled for surgery on June 27, 2023. He called earlier this week as he wasgiven different recommendations for holding his Eliquis. Cardiology recommended 2 days, anesthesia 3 days. The patient took one of his 2 doses on Saturday and is not planning to take his doses for the next 2 days. I discussed with the patient I am comfortable following his hernia surgery. He initially planned for office visit but due to the fact that I was running late he just requested that I call him to havethis above discussion. documented in this encounterOhio[facility]23 Miscellaneous Notes* Telephone Encounter - Argelia Argueta RN - 06/25/2023 3:33 PM EDT Spoke with patient aware per Dr Hilton to hold Eliquis 48 hrs. Argelia Argueta RN Pacc resource nurse documented in this encounterOhio[facility]2023 Instructions* Patient Instructions* Jesika Carmona APRN.CNP - 06/21/2023 2:53 PM EDT PATIENT PREOPERATIVE INSTRUCTIONS Dennis Maddox MD has scheduled you for your procedure at this surgery center: [facility]: [phone] -- [address] [place] [id number]. Please read below carefully for your personalized instructions. Dietary Restrictions: - No solid food after midnight. - You may have 12 ounces of clear liquids (water, clear juices such as apple juice or gatorade, carbonated beverages, clear tea, black coffee, jello) until 2 hours before scheduled arrival at facility. Medications: Unless instructed differently below, stay on all of your medications until your surgery. If you start any new medications after today's visit, please contact your surgeon. Pre-Surgery Med Instructions Medication Instructions apixaban (ELIQUIS) 5 mg tab(s) Stop 3 days before surgery (will talk to direct marketing manager) sucralfate (CARAFATE) 1 gram tablet Do not take the day of surgery pravastatin (PRAVACHOL) 40 mg tablet Take normal dose at bedtime day prior to surgery. pantoprazole DR (PROTONIX) 40 mg tablet Take the day of surgery with a small sip of water flecainide (TAMBOCOR) 100 mg tablet Take the day of surgery with a small sip of water tamsulosin (FLOMAX) 0.4 mg Take the day of surgery with a small sip of water finasteride (PROSCAR) 5 mg tablet Take the day of surgery with a small sip of water amLODIPine (NORVASC) 5 mg tablet Take the day of surgery with a small sip of water. levalbuterol tartrate HFA (XOPENEX HFA) 45 mcg/actuation inhaler May continue medication until surgery. doxazosin (CARDURA) 4 mg tablet Take normal dose at bedtime day prior to surgery. lisinopril (ZESTRIL) 20 mg tablet Do not take for 24 hours prior to surgery metoprolol succinate ER (TOPROL XL) 25 mg 24 hr tablet Take the day of surgery with a small sip of water metFORMIN ER (GLUCOPHAGE XR) 500 mg 24 hr tablet Do not take the day of surgery oatmmnvklyh-wmmlrnxih-luqwfxam (TRELEGY ELLIPTA) 200-62.5-25 mcg inhalation powder May continue medication until surgery. magnesium oxide (MAG-OXIDE ORAL) Do not take the day of surgery BIOTIN ORAL Stop 7 days before surgery COQ10, LIPOSOMAL UBIQUINOL, ORAL Stop 7 days before surgery multivitamins w-minerals/lut(CENTRUM SILVER TAB) Stop 7 days before surgery ASPIRIN 81 MG TAB Stop 7 days before surgery If you take any medications for erectile dysfunction-Cialis (Tadalafil), Levitra, Staxyn (Vardenafil) Viagra (Sildenenafil please do not take these for 48 hours before surgery. If you start any new medications after today's visit, please contact the surgeon's office. Blood Thinning Medications: - Stop NSAIDS (Ibuprofen, Advil, Aleve, Motrin, Celebrex, Mobic, etc.) 7 days before surgery, as directed by your surgeon. - Stop Aspirin 7 days before surgery, as directed by your surgeon. - Do NOT stop aspirin or other anticoagulants without consulting with your direct marketing manager or prescribing physician. - Stop Vitamin E, ALL multi-vitamins, herbals and dietary supplements 7 days before surgery. - Stop Eliquis 3 days before surgery (will talk to direct marketing manager) Important Reminders: - If you use CPAP/BIPAP, bring the machine with you to the surgery center. - Candy, mints, and tobacco products are NOT permitted the morning of surgery. - Hearing aids, dentures and glasses may be worn the morning of surgery. - NO jewelry, body piercings, makeup, hairpins or contacts are to be worn the day of surgery. If you develop symptoms such as a fever, cold, or flu, or have other changes to your health within TWO DAYS of scheduled surgery or the morning of surgery, please contact the surgery center above. Personal Belongings: -Please have photo ID and insurance cards. -If you do not have a copy of advance directives on file with us, please bring a copy with you on the day of surgery. - Leave ALL valuables and money at home or with family members. For Outpatient Procedures: - YOU MUST HAVE A RESPONSIBLE SERVICE DELIVERY SUPERVISOR TAKE YOU HOME. A BOILER HOUSE MECHANIC OR THERMOCOUPLE TESTER CANNOT BE MADE A RESPONSIBLE SERVICE DELIVERY SUPERVISOR. - We recommend that a responsible person stays with you overnight to take care of you. - You cannot stay in a hotel alone after outpatient surgery. You will not be permitted to have yoursurgery, if you do not have someone to take care of you. Arrival Time for Surgery: - The Surgery Center or hospital where you are having surgery will call the afternoon before surgery (or Saturday for Saturday surgery) with a scheduled arrival time. - If you have not heard by 4 pm, please contact the surgery center above. Please be aware that emergency situations arise, which may delay or change your surgical time. If this happens, we will notify you as soon as possible and regret any inconvenience. If you already have an Advance Directive, please fax a copy to [phone] or email to for it to be added to your chart. If you do not have an Advance Directive, you can find the appropriate form and more information at [email or web address]. We recommend that youcomplete the Advance Directive form found on the website and bring it with you the day of your surgery. It can be witnessed and scanned into your chart that day. Jesika Carmona APRN.CNP documented in this encounterOhio[facility]2023 History and physical note * Jesika Carmona APRN.CNP - 06/21/2023 2:40 PM EDT SERVICE DATE: 06/21/2023 SERVICE TIME: 2:32 PM This is a virtual visit using [employer] Video Visit. It required patient- provider interaction for the medical decision making as documented below. I have communicated my name and active licensure. The patient's identity and physical location wereverified at the time of this visit. Either the patient or their legal outside industrial sales representative has been informed of the risks and benefits of and alternatives to treatment through a remote evaluation and consents to proceed with the evaluation remotely. Surgeon: Dennis Maddox MD Type of surgery: REPAIR INITIAL INGUINAL HERNIA = OR > AGE 5 REDUCIBLE VELMA APPROACH WITH MESH (right) Patient scheduled for surgery on 06/27/23 [facility] 5' 9 [pt reported[ (1.75m) Wt 235 lb (106.6kg) BMI 34.69 kg/(m^2). CC: Patient presents with: Anesthesia Consult HPI: Bill Reynoso is a 77 year old year old MALE with recent CPE completed on 06/06/23 located in [facility] by Dr. Dennis Maddox. Encounter reviewed with patient. Patient denies changes. PAST MEDICAL HISTORY Diagnosis Date Anal fistula Arrhythmia Asthma Atrial fibrillation (HCC) Benign neoplasm of colon Coronary artery disease Diabetes mellitus Diaphragm paralysis Disorder of eye movements [facility] left eye Elevated prostate specific antigen (PSA) 11/22/2014 Family history of malignant neoplasm of gastrointestinal tract History of tear of ACL (anterior cruciate ligament) 1989 right knee Internal hemorrhoids without mention of complication Mitral valve disorders(424.0) Obstructive sleep apnea CPAP Other symptoms involving digestive system(787.99) Personal history of colonic polyps Colon polyps Snoring Unspecified essential hypertension PAST SURGICAL HISTORY Procedure Laterality Date ADENOIDECTOMY PRIMARY <AGE 14 Adenoidectomy CARDIOVERSION June 2021 CATARACT EXTRACTION HX Bilateral COLONOSCOPY FLX DX W/COLLJ SPEC WHEN PFRMD 12/21/2002 Colonoscopy COLONOSCOPY FLX DX W/COLLJ SPEC WHEN PFRMD 05/08/2007 Colonoscopy COLONOSCOPY FLX DX W/COLLJ SPEC WHEN PFRMD 06/05/2010 COLONOSCOPY FLX DX W/COLLJ SPEC WHEN PFRMD 09/07/2013 Repeat 4 years for screening COLONOSCOPY FLX DX W/COLLJ SPEC WHEN PFRMD 11/11/2017 Colonoscopy ESOPHAGOGASTRODUODENOSCOPY TRANSORAL DIAGNOSTIC 05/08/2007 EGD PAST SURGICAL HISTORY OF anal fissurectomy PAST SURGICAL HISTORY OF 2019 cyst removed behind left ear REMV CATARACT EXTRACAP,INSERT LENS SIGMOIDOSCOPY FLX DX W/COLLJ SPEC BR/WA IF PFRMD 08/01/2004 Sigmoidoscopy TONSILLECTOMY PRIMARY/SECONDARY <AGE 14 Tonsillectomy FAMILY HISTORY Problem Relation Age of Onset Colon Cancer Mother Hypertension Mother Cancer Father Prostate Hypertension Father Colon Cancer Sister Breast Cancer Sister Social History Tobacco Use Smoking status: Never Smokeless tobacco: Never Tobacco comments: No one in household smokes. Vaping Use Vaping Use: Never used Substance Use Topics Alcohol use: Yes Alcohol/week: 2.5 - 5.0 standard drinks of alcohol Types: 1 - 2 Cans of Beer (12oz) per week Comment: once every 2 weeks Drug use: No apixaban (ELIQUIS) 5 mg tab(s)^Take 1 tablet by mouth twice daily.^Disp: 180 tablet^Rfl: 3 sucralfate (CARAFATE) 1 gram tablet^Take 1 tablet by mouth two times a day.^Disp: 60 tablet^Rfl: 5 pravastatin (PRAVACHOL) 40 mg tablet^Take 1 tablet by mouth daily at bedtime.^Disp: 90 tablet^Rfl: [address] (PROTONIX) 40 mg tablet^Take 1 tablet by mouth twice daily.^Disp: 180 tablet^Rfl: 3 flecainide (TAMBOCOR) 100 mg tablet^TAKE ONE TABLET BY MOUTH TWICE DAILY^Disp: 180 tablet^Rfl: 3 tamsulosin (FLOMAX) 0.4 mg^TAKE 2 CAPSULES BY MOUTH EVERY DAY 1/2 HOUR AFTER SAME MEAL EVERY DAY- MAXIMUM 0.8MG DAILY^Disp: 180 capsule^Rfl: 3 finasteride (PROSCAR) 5 mg tablet^Take 1 tablet by mouth once daily.^Disp: 90 tablet^Rfl: 3 amLODIPine (NORVASC) 5 mg tablet^Take 1 tablet by mouth once daily.^Disp: 90 tablet^Rfl: 3 levalbuterol tartrate HFA (XOPENEX HFA) 45 mcg/actuation inhaler^Inhale 1-2 Puffs as instructed every 4 hours as needed for wheezing/shortness of breath.^Disp: 15 g^Rfl: 11 doxazosin (CARDURA) 4 mg tablet^Take 1 tablet by mouth once daily.^Disp: 90 tablet^Rfl: 3 lisinopril (ZESTRIL) 20 mg tablet^Take 1 tablet by mouth once daily.^Disp: 90 tablet^Rfl: 3 metoprolol succinate ER (TOPROL XL) 25 mg 24 hr tablet^Take 1 tablet by mouth twice daily.^Disp: 180 tablet^Rfl: 3 metFORMIN ER (GLUCOPHAGE XR) 500 mg 24 hr tablet^TAKE 2 TABLETS BY MOUTH TWICE DAILY BEFORE MEALS.^Disp: 360 tablet^Rfl: 3 kfjultxoxqw-hseixrhxp-vcxtrjvk (TRELEGY ELLIPTA) 200-62.5-25 mcg inhalation powder^Inhale 1 Puff asinstructed once daily.^Disp: 180 Each^Rfl: 3 magnesium oxide (MAG-OXIDE ORAL)^Take 400 mg by mouth once daily.^Disp: ^Rfl: BIOTIN ORAL^Take by mouth.^Disp: ^Rfl: COQ10, LIPOSOMAL UBIQUINOL, ORAL^Take by mouth once daily. Take for two weeks then restart statin.^Disp: ^Rfl: multivitamins w-minerals/lut(CENTRUM SILVER TAB)^Take one(1) tablet daily.^Disp: ^Rfl: 0 ASPIRIN 81 MG TAB^Take by mouth once daily.^Disp: ^Rfl: 0 blood sugar diagnostic (ACCU-CHEK GUIDE TEST STRIPS) test strip^Use as instructed^Disp: 100 Strip^Rfl: 3 Lancing Device with Lancets (ACCU-CHEK MULTICLIX LANCET)^1 Each once daily.^Disp: 100 Each^Rfl: 3 Blood Glucose Control High and Low (ACCU-CHEK GUIDE L1-L2 CTRL HAYDE) soln^1 Each as needed.^Disp: 1 Each^Rfl: 3 Lancets lancets^Test blood sugar(s) once times daily. Dx: Type 2 DM - Controlled E11.9 Insulin: No^Disp: 100 Each^Rfl: 11 CPAP^AutoPAP 12-20 cmH2O, nasal mask, humidity, filters. Lifetime supplies. Dx: 327.23. 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 Hilton last OV 01/28/23 GI: No nausea, vomiting, or diarrhea +GERD : No history of dysuria, frequency or incontinence +kidney stones +CKD +BPH +kidney cysts, following with urology MUSCULOSKELETAL: Negative for joint pain or swelling, back pain or muscle pain SKIN: Negative for lesions, rash, and itching PSYCH: Negative for sleep disturbance, mood disorder and recent psychosocial stressors HEMATOLOGY/LYMPHOLOGY: Negative for prolonged bleeding, bruising easily or swollen nodes +Eliquis for afib +aspirin ENDOCRINE: Negative for cold or heat intolerance, polyuria, polydipsia and goiter +DM +prednisone in mid April for back pain NEURO: No history of headaches, syncope, paralysis, seizures or tremors VIDEO EXAM: (if completed, performed via video enabled technology) GENERAL: alert and appropriate, in no distress, well-hydrated, well nourished, and happy, smiling, interactive HEAD: normocephalic, no abnormality or lesion noted EYES: no injection and visual acuity is grossly normal EARS: hearing grossly normal OROPHARYNX: moist mucus membranes NECK: full ROM, no cervical LNs noted RESPIRATORY: breathing non-labored CHEST: equal chest rise with normal respiratory effort HEART: Capillary refill < 3 seconds in BL upper extremities NEUROLOGIC: no obvious deficit Laboratory and Testing: Lab Value Units Date High Low HB 14.3 g/dL 05/06/2023 17.0 13.0 HCT 43.8 % 05/06/2023 51.0 39.0 WBC 7.44 k/uL 05/06/2023 11.00 3.70 PLT 198 k/uL 05/06/2023 400 150 NA 143 mmol/L 05/06/2023 144 136 K 4.3 mmol/L 05/06/2023 5.1 3.7 GLUC 101 mg/dL 05/06/2023 99 74 BUN 21 mg/dL 05/06/2023 24 9 CREAT 1.18 mg/dL 05/06/2023 1.22 0.73 PTSEC No results within date range. INR No results within date range. APTT No results within date range. ALT 27 U/L 05/06/2023 54 10 AST 30 U/L 05/06/2023 40 14 TBILI 0.5 mg/dL 05/06/2023 1.3 0.2 TSH No results within date range. Lab Value Units Date High Low HCGQT No results within date range. UHCG No results within date range. HCG, BODY* No results within date range. Lab Value Units Date High Low ABORHD No results within date range. ABSCREEN No results within date range. Hemoglobin A1C (%) Date Value 12/31/2022 6.9 09/17/2022 7.2 03/14/2022 6.9 03/21/2021 6.9 09/29/2020 6.9 09/05/2020 7.1 02/23/2020 6.9 07/04/2019 7.2 Hemoglobin A1C (POCT) (%) Date Value 09/22/2021 6.6 EKG READING: Most recent EKG 09/18/21 SINUS BRADYCARDIA OTHERWISE NORMAL ECG Confirmed by JEROME TEAGUE D.O. ([id number]) on 09/28/2021 3:17:18 PM OTHER TESTS: Most recent echocardiogram: 04/05/22 CONCLUSIONS: - Technically difficult exam due to body habitus. - Exam indication: Shortness of Breath - The left ventricle is normal in size. Left ventricular systolic function is normal. EF = 65 5% (2D biplane) Grade I left ventricular diastolic dysfunction. - The right ventricle is normal in size. Right ventricular systolic function is normal. - The left atrial cavity is moderately dilated. - There are no significant valvular abnormalities. - The visualized aorta is dilated with a maximal dimension of 4.1 cm. - Exam was compared with the prior echocardiographic exam performed on 04/26/2017. Stress Test 09/12/20 CONCLUSIONS: 1. SPECT Perfusion Study: Normal. 2. There is no scintigraphic evidence for inducible ischemia. 3. No evidence of scarred myocardium. 4. Left ventricle is normal in size. The left ventricle systolic function is normal. 5. Right ventricle is normal in size. 6. This is a low risk scan. Gated Stress FBP LVEF % 58 METS: Climb a flight of stairs or walk up a hill (5.50 METs) Patient denies any chest pain or undue shortness of breath with the above physical activity. Does gardening/walking dog several times daily with no CP or SOB ASSESSMENT: Asthma Assessment: Follows with anjana urbina and uses rescue inhaler as needed, last used last week. Respirations easy and unlabored during P[facility] video visit. Essential hypertension Assessment: On lisinopril, amlodipine, and metoprolol Follows with PCP/cardiology Last 3 Encounter BP Readings: Date: BP: 06/06/2023 140/72 05/29/2023 120/58 05/08/2023 130/82 Hyperlipidemia Assessment: Controlled on statin, follows with PCP/cardiology Obesity, Class I, BMI 30-34.9 Assessment: Body mass index is 34.7 kg/m . BROCK (obstructive sleep apnea) Assessment: Pt reports compliance with CPAP PAF (paroxysmal atrial fibrillation) ([facility]) Assessment: Follows with direct marketing manager, Dr. Hilton, last OV 01/28/23. Reports compliance to medication: flecainide, metoprolol, Eliquis. On OAC: Eliquis. Denies any dizziness, syncope, palpitations, CP, SOB. Ejection Fraction - Result: 65 % Date: 04/05/2022 Time: 08:58:54 Stage 3a chronic kidney disease (HCC) Assessment: Follows with nephrology/urology. BMP Latest Ref Rng & Units 05/06/2023 12/31/2022 09/17/2022 GLUCOSE 74 - 99 mg/dL 101(H) 127(H) 108(H) BUN 9 - 24 mg/dL 21 22 21 CREATININE 0.73 - 1.22 mg/dL 1.18 1.23(H) 1.26(H) SODIUM 136 - 144 mmol/L 143 143 142 POTASSIUM 3.7 - 5.1 mmol/L 4.3 4.2 4.5 CHLORIDE 97 - 105 mmol/L 108(H) 104 104 CO2 22 - 30 mmol/L 26 29 30 ANION GAP 9 - 18 mmol/L 9 10 8(L) CALCIUM, TOTAL 8.5 - 10.2 mg/dL 9.2 10.1 9.5 eGFR >=60 mL/min/1.73m 64 61 60 EGFR- - - - - EGFR-ALL OTHER RACES . - - - Type 2 diabetes mellitus with stage 3a chronic kidney disease, without long-term current use of insulin (HCC) Assessment: Reports compliance to medication: metformin. Following with PCP. Encouraged lifestyle modifications. Hemoglobin A1C (%) Date Value 12/31/2022 6.9 09/17/2022 7.2 03/21/2021 6.9 09/29/2020 6.9 Hemoglobin A1C (POCT) (%) Date Value 09/22/2021 6.6 Coronary artery disease involving osage coronary artery of osage heart without angina pectoris Assessment: Denies any new or worsening cardiac symptoms. Follows with direct marketing manager, Dr. Hilton, last OV 01/28/23. Reports compliance to medication: metoprolol, statin, aspirin. No stents. Recent cardiac testing: most recent EKG shows sinus melvi, echo 04/16 shows EF 65%. Ejection Fraction - Result: 65 % Date: 04/05/2022 Time: 08:58:54 ANESTHESIA FINDINGS: Intubation History: No history of difficult intubation Significant Anesthesia Considerations: Slow emergence Airway Exam: General: Normal appearance Mallampati Score is CLASS II ULBT: Class II - Lower incisors can bite the upper lip below the rachana line Neck: Normal appearance and function, Distance from hyoid to mentum during neck extension is at least 3 finger breaths Mouth: Normal tongue size and Mouth opening greater than 2 finger breaths Dentition: Intact and Caps/crowns Airway History: No abnormal airway history STOP BANG Score: BROCK uses CPAP/BiPAP PLAN This patient is optimally prepared for surgery pending Eliquis holding instructions from direct marketing manager. Telephone encounter sent. CONSULTS: Patient does not require consults for optimization at this time. The Following Tests/Procedures Have Been Initiated: EKG not indicated per P[facility] protocol CBC, CMP from 05/06/23 reviewed/accepted Planned Anesthetic: Per anesthesia choice Instructions Given to Patient: Patient given verbal instructions and voices comprehension and compliance. Copy sent electronically via My Chart, email, or mobile device. I spent more than 21-40 minutes [id number] with the patient and over half the time was devoted tocounseling and/or coordination of care. This is a virtual visit. It required patient-provider interaction for the medical decision making as documented above. SIGNATURE: Jesika Carmona APRN.CNP PATIENT NAME: Bill Reynoso DATE: June 21, 2023 TIME: 2:32 PM documented in this encounterOhiohealth [facility]2023 Miscellaneous Notes* Telephone Encounter - Jesika Carmona APRN.CNP - 06/21/2023 12:01 PM EDT Good afternoon, Patient is scheduled for PACC later this afternoon prior to upcoming hernia repair scheduled 06/27/[address] Maddox at [place]. Can patient hold his Eliquis 3 days pre-op per PACC guidelines? Thank you for your time, Jesika Carmona CNP documented in this encounterOhiohealth Grady [facility] Hospital10-24-2023 Miscellaneous Notes* Telephone Encounter - Nasima Richardson RN - 06/18/2023 11:16 AM EDT Patient calls requesting refills on medication. Medication was previously ordered by Dr. Larsen after colonoscopy and EGD done at the end of November. Date of last office: 05/03/2023 Date of next office visit: 07/08/2023 Requested Prescriptions Pending Prescriptions Disp Refills sucralfate (CARAFATE) 1 gram tablet 60 tablet 5 Sig: Take 1 tablet by mouth two times a day. Date of Last Labs: 05/06/2023 Please advise. Thank you. Nasima Richardson RN. documented in this encounterOhiohealth Grady [facility] Hospital10-23-2023 Miscellaneous Notes* Telephone Encounter - Stephanie Betancourt RPh - 06/17/2023 11:14 AM EDT Pharmacist Refill Authorization Review Name: Bill Reynoso Date: 06/17/2023 Time: 11:14 AM Refill authorization request(s) received and reviewed under effective consult agreement. Upon review, could not confirm that the prescriber is a participating physician under the consult agreement. Refill request requires review by a participating provider. Stephanie Betancourt RPh documented in this encounterOhiohealth Grady [facility] Hospital10-23-2023 Miscellaneous Notes* Telephone Encounter - Stephanie Betancourt RPh - 06/17/2023 11:10 AM EDT Pharmacist Refill Authorization Review Name: Bill Reynoso Date: 06/17/2023 Time: 11:12 AM Refill authorization request(s) received and reviewed under effective consult agreement. Upon review, did confirm that an active patient-provider relationship exists and that the prescriber is a participating physician under the consult agreement. Last office visit in this department: 05/03/2023 Leighann Carmichael APRN.CNP Last distance health visit in this department: 06/28/2022 Leighann Carmichael APRN.CNP Next appointment in this department: 07/08/2023 Leighann Carmichael APRN.CNP The medication(s) fall under the following categories: Category 2: Medication(s) qualifies for limited renewal due to Labs needed--last drawn March 2022 . Prescription(s) issued as below. Requested Prescriptions Signed Prescriptions Disp Refills pravastatin (PRAVACHOL) 40 mg tablet 90 tablet 0 Sig: Take 1 tablet by mouth daily at bedtime. Authorizing Provider: LEIGHANN CARMICHAEL Ordering User: STEPHANIE BETANCOURT Number of refills approved in this encounter: 1 Number of refills forwarded to provider for review: 0 Number of refills denied in this encounter: 0 Stephanie Betancourt RPh documented in this encounterOhiohealth Grady [facility]10-14-2023 NoteHNO ID: [id number] Author: Note, Interface Service: ? Author Type: ? Type: Progress Notes Filed: 06/08/2023 2:59 AM Note Text: Epic Scheduled Downtime: 06/08/2023 1:00:00 AM to 06/08/2023 1:28:00 AMCleveland Clinic Euclid [id number] NoteSamaritan Hospital10-13-2023 History of Present illness Narrative* Dennis Maddox MD - 06/07/2023 7:12 AM EDT HISTORY AND PHYSICAL Bill Nelson [place] 1945 REFERRING PHYSICIAN: Self CHIEF COMPLAINT: Consult (Groin pain) HPI: Bill is a 77 year old male with a complaint of right inguinal pain. He notes lower back and right lower quadrant pain after being physically active cleaning and moving items at his daughter's house. He denies noting any bulges. He notes now worse discomfort bending over. He denies radicular/sciatic pain He present to the ER with these complaints on May 06. ST scan was obtained which demonstrated: IMPRESSION: 3 mm calculus left base of the bladder. No hydronephrosis. He was told this could be due to the renal stone. My review of the imaging demonstrated either a right cord lipoma or a smaller occult indirect hernia The patient notes no symptoms of bowel obstruction and denies nausea or vomiting. The patient was seen by his primary care physician who felt the patient has a hernia. Bill was referred for evaluation and treatment. The patient is being seen by me today at the request of Sol Umana my opinion and advice regarding possible right inguinal hernia. 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 Elevated prostate specific antigen (PSA) 11/22/2014 Family history of malignant neoplasm of gastrointestinal tract History of tear of ACL (anterior cruciate ligament) 1989 right knee Internal hemorrhoids without mention of complication Mitral valve disorders(424.0) Obstructive sleep apnea CPAP Other symptoms involving digestive system(787.99) Personal history of colonic polyps Colon polyps Snoring Unspecified essential hypertension PAST SURGICAL HISTORY Procedure Laterality Date ADENOIDECTOMY PRIMARY <AGE 14 Adenoidectomy CARDIOVERSION June 2021 CATARACT EXTRACTION HX Bilateral COLONOSCOPY FLX DX W/COLLJ SPEC WHEN PFRMD 12/21/2002 Colonoscopy COLONOSCOPY FLX DX W/COLLJ SPEC WHEN PFRMD 05/08/2007 Colonoscopy COLONOSCOPY FLX DX W/COLLJ SPEC WHEN PFRMD 06/05/2010 COLONOSCOPY FLX DX W/COLLJ SPEC WHEN PFRMD 09/07/2013 Repeat 4 years for screening COLONOSCOPY FLX DX W/COLLJ SPEC WHEN PFRMD 11/11/2017 Colonoscopy ESOPHAGOGASTRODUODENOSCOPY TRANSORAL DIAGNOSTIC 05/08/2007 EGD PAST SURGICAL HISTORY OF anal fissurectomy PAST SURGICAL HISTORY OF 2019 cyst removed behind left ear REMV CATARACT EXTRACAP,INSERT LENS SIGMOIDOSCOPY FLX DX W/COLLJ SPEC BR/WA IF PFRMD 08/01/2004 Sigmoidoscopy TONSILLECTOMY PRIMARY/SECONDARY <AGE 14 Tonsillectomy Current Outpatient Medications Medication Sig amLODIPine (NORVASC) 5 mg tablet Take 1 tablet by mouth once daily. apixaban (ELIQUIS) 5 mg tab(s) Take 1 tablet by mouth twice daily. ASPIRIN 81 MG TAB Take by mouth once daily. BIOTIN ORAL Take by mouth. Blood Glucose Control High and Low (ACCU-CHEK GUIDE L1-L2 CTRL HAYDE) soln 1 Each as needed. blood sugar diagnostic (ACCU-CHEK GUIDE TEST STRIPS) test strip Use as instructed COQ10, LIPOSOMAL UBIQUINOL, ORAL Take by mouth once daily. Take for two weeks then restart statin. CPAP AutoPAP 12-20 cmH2O, nasal mask, humidity, filters. Lifetime supplies. Dx: 327.23. Fax compliance rpt to [facility] in 6 weeks. doxazosin (CARDURA) 4 mg tablet Take 1 tablet by mouth once daily. finasteride (PROSCAR) 5 mg tablet Take 1 tablet by mouth once daily. flecainide (TAMBOCOR) 100 mg tablet TAKE ONE TABLET BY MOUTH TWICE DAILY dmdxgzuqogs-alulejyzw-cklyaqng (TRELEGY ELLIPTA) 200-62.5-25 mcg inhalation powder Inhale 1 Puff asinstructed once daily. Lancets lancets Test blood sugar(s) once times daily. Dx: Type 2 DM - Controlled E11.9 Insulin: No Lancing Device with Lancets (ACCU-CHEK MULTICLIX LANCET) 1 Each once daily. levalbuterol tartrate HFA (XOPENEX HFA) 45 mcg/actuation inhaler Inhale 1-2 Puffs as instructed every 4 hours as needed for wheezing/shortness of breath. lisinopril (ZESTRIL) 20 mg tablet Take 1 tablet by mouth once daily. magnesium oxide (MAG-OXIDE ORAL) Take 400 mg by mouth once daily. metFORMIN ER (GLUCOPHAGE XR) 500 mg 24 hr tablet TAKE 2 TABLETS BY MOUTH TWICE DAILY BEFORE MEALS. metoprolol succinate ER (TOPROL XL) 25 mg 24 hr tablet Take 1 tablet by mouth twice daily. multivitamins w-minerals/lut(CENTRUM SILVER TAB) Take one(1) tablet daily. pantoprazole DR (PROTONIX) 40 mg tablet Take 1 tablet by mouth twice daily. pravastatin (PRAVACHOL) 40 mg tablet Take 1 tablet by mouth daily at bedtime. sucralfate (CARAFATE) 1 gram tablet Take 1 g by mouth twice daily. tamsulosin (FLOMAX) 0.4 mg TAKE 2 CAPSULES BY MOUTH EVERY DAY 1/2 HOUR AFTER SAME MEAL EVERY DAY- MAXIMUM 0.8MG DAILY Current Facility-Administered Medications Medication Dose Route Frequency perflutren lipid microspheres 1.3 mL in NaCl (PF) 0.9% 10 mL injection (DEFINITY) INTRAVENOUS DIRECTED PRN sodium chloride 0.9 % (flush) 10 mL (BD POSIFLUSH) 10 mL INTRAVENOUS DIRECTED PRN ALLERGIES: Adhesive, Dust Mites, and Naprosyn [Naproxen] PERSONAL HISTORY: Social History Tobacco Use Smoking status: Never Smokeless tobacco: Never Tobacco comments: No one in household smokes. Vaping Use Vaping Use: Never used Substance Use Topics Alcohol use: Yes Alcohol/week: 2.5 - 5.0 standard drinks of alcohol Types: 1 - 2 Cans of Beer (12oz) per week Comment: once every 2 weeks Drug use: No FAMILY HISTORY: FAMILY HISTORY Problem Relation Age of Onset Colon Cancer Mother Hypertension Mother Cancer Father Prostate Hypertension Father Colon Cancer Sister Breast Cancer Sister REVIEW OF SYMPTOMS: The review of systems data was entered by the nurse and reviewed by me Nursing Notes: Isabella Valenzuela LPN 06/06/2023 2:45 PM Signed REVIEW OF SYSTEMS: General: The patient denies fatigue, denies weight loss, denies weight gain, denies feeling hot, and denies feelings of cold. Eyes: The patient denies glaucoma, denies eye injury/surgery, wears glasses or contacts. Ear/Nose/Throat: The patient denies allergies, denies hayfever, denies ear infections, and denies bloody noses. Cardiovascular: The patient denies chest pain, NOTES heart disease, NOTES high blood pressure,denies cardiac stent, denies prior heart attack, NOTES irregular heart beat, denies high cholesterol, denies poor circulation, denies heart failure, other cardiac issues, denies claudication, denies cold feet, denies peripheral arterial stent. Respiratory: The patient denies tuberculosis, NOTES pneumonia, NOTES frequent cough, denies pulmonary embolism, NOTES shortness of breath, and denies coughing up blood, NOTES asthma Gastrointestinal: The patient denies difficulty swallowing, NOTES acid reflux, denies ulcers, denies vomiting, denies jaundice/hepatitis, denies gallbladder problems, denies black or tarry stools, denies hemorrhoids, denies bleeding from rectum, denies diverticulitis, denies constipation, denies diarrhea, denies loss of stool control, and denies hernias. Kidney/Bladder: The patient NOTES kidney stones, denies urine infections, and denies bloody urine. Skin: The patient denies a history of skin cancer, denies bleeding/changing moles, and denies a history of skin rash. Neurologic: The patient denies a history of epilepsy/convulsions, denies headaches, denies head/spinal injuries, and denies stroke/TIA. Psychiatric: The patient denies psychiatric medications, denies depression, and denies voices, denies substance abuse. Endocrine: The patient denies thyroid disorders, NOTES diabetes, and denies hormonal problems. Hematologic: The patient denies a history of bruising, denies bleeding, and denies anemia, denies blood clots. Infections: The patient denies a history of measles and mumps, denies rheumatic fever, and denies sexually transmitted diseases. Musculoskeletal: The patient denies back pain/injury, NOTES back problems, NOTES sciatica, denies knee/foot trouble, denies arthritis, or denies gout. When was patient's last Mammogram screening? N/a Last Colonoscopy: 2021 Isabella Valenzuela LPN PHYSICAL EXAMINATION: General: The patient is 77 year old male, well nourished, well hydrated in no acute distress. The patient is oriented to time, place, and person. VITALS: Blood pressure 140/72, pulse 60, temperature 36.4 C (97.6 F), height 175.3 cm (5' 9 ), weight 106.8 kg (235 lb 6.4 oz), SpO2 95 %. Body mass index is 34.76 kg/m . HEENT: Normal cephalic, ataumatic, pupils are equally round, sclera are anicteric, mucous membranesare moist, oropharynx is clear. Neck has no masses, asymmetry or lymphadenopathy. Thyroid is unremarkable. Respiratory: Clear to auscultation and percussion. Normal respiratory excursion and pattern. Cardiac: Examination is regular rate and rhythm. Abdominal exam: Soft, nontender, with no palpable masses. No hepatosplenomegaly. No obviously clinically palpable hernias. Rectal exam: exam deferred Extremities: no clubbing, cyanosis or edema. No adenopathy. Other: LABORATORY VALUES: As Noted RADIOLOGIC STUDIES: As Noted Assessment IMPRESSION: Right groin pain, questionable small right inguinal hernia PLAN: I have asked the patient to assess for bulge in the area and come back for repeat examination in a few weeks. If we can prove hernia or his symptoms persist, my plan is to perform a open right inguinal hernia repair with mesh. The planned surgical procedure was discussed extensively with the patient. The risks, benefits, anticipated outcomes and possible complications were mentioned. Bill collier thatall hernia repair surgery has a chance of recurrence and/or chronic post operative pain. My staff has also explained the procedure in understandable terms and the patient was given the option to takeprinted material concerning the planned procedure. The patient had the opportunity to ask questionsconcerning the planned procedure. The patient freely consents to the planned procedure. Diagnoses: (R10.31) Right groin pain (primary encounter diagnosis) Anticipated CPT Code: open right inguinal hernia repair with mesh - [id number] Anticipated Anesthetic: MAC with local Patient weight: Blood pressure 140/72, pulse 60, temperature 36.4 C (97.6 F), height 175.3 cm (5' 9 ), weight 106.8 kg (235 lb 6.4 oz), SpO2 95 %. BMI: Body mass index is 34.76 kg/m . 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 Dennis Maddox MD documented in this encounterOhiohealth [facility]ady [facility]10-12-2023 Nurse Note* Isabella Valenzuela LPN - 06/06/2023 2:41 PM EDT REVIEW OF SYSTEMS: General: The patient denies fatigue, denies weight loss, denies weight gain, denies feeling hot, and denies feelings of cold. Eyes: The patient denies glaucoma, denies eye injury/surgery, wears glasses or contacts. Ear/Nose/Throat: The patient denies allergies, denies hayfever, denies ear infections, and denies bloody noses. Cardiovascular: The patient denies chest pain, NOTES heart disease, NOTES high blood pressure,denies cardiac stent, denies prior heart attack, NOTES irregular heart beat, denies high cholesterol, denies poor circulation, denies heart failure, other cardiac issues, denies claudication, denies cold feet, denies peripheral arterial stent. Respiratory: The patient denies tuberculosis, NOTES pneumonia, NOTES frequent cough, denies pulmonary embolism, NOTES shortness of breath, and denies coughing up blood, NOTES asthma Gastrointestinal: The patient denies difficulty swallowing, NOTES acid reflux, denies ulcers, denies vomiting, denies jaundice/hepatitis, denies gallbladder problems, denies black or tarry stools, denies hemorrhoids, denies bleeding from rectum, denies diverticulitis, denies constipation, denies diarrhea, denies loss of stool control, and denies hernias. Kidney/Bladder: The patient NOTES kidney stones, denies urine infections, and denies bloody urine. Skin: The patient denies a history of skin cancer, denies bleeding/changing moles, and denies a history of skin rash. Neurologic: The patient denies a history of epilepsy/convulsions, denies headaches, denies head/spinal injuries, and denies stroke/TIA. Psychiatric: The patient denies psychiatric medications, denies depression, and denies voices, denies substance abuse. Endocrine: The patient denies thyroid disorders, NOTES diabetes, and denies hormonal problems. Hematologic: The patient denies a history of bruising, denies bleeding, and denies anemia, denies blood clots. Infections: The patient denies a history of measles and mumps, denies rheumatic fever, and denies sexually transmitted diseases. Musculoskeletal: The patient denies back pain/injury, NOTES back problems, NOTES sciatica, denies knee/foot trouble, denies arthritis, or denies gout. When was patient's last Mammogram screening? N/a Last Colonoscopy: 2021 Isabella Valenzuela LPN documented in this encounterOhiohealth Grady [facility]10-05-2023 Miscellaneous Notes* Telephone Encounter - Abdulaziz Chand - 05/30/2023 10:40 AM EDT Pt is scheduled for their MSK US on 06/17 at [facility]. * Telephone Encounter - Oriana Blankenship PCNA - 05/30/2023 8:59 AM EDT Visit Type: ANY MSK Visit Length: 45, 50 OR 60 MINUTES Order Name/Protocol: US HIP RT; MEDIAL-EVAL FOR SOURCE OF RT INGUINAL PAIN. POSSIBLE MSK ISSUE Preferred Provider: N/A Comment: Please ask if the patient has ever had any prior surgery to their RT groin. If so, upgradethe visit type to an MSK1 and notate the surgical hx in the Appointment Note. Also, do not link [employer] to the appointment. An order correction was routed and is forthcoming. Location: Depending on the surgical hx, this patient can have this exam performed at any of our three locations. Slot held: N/A documented in this encounterOhiohealth Grady [facility] Hospital10-04-2023 NoteSam[facility]itan Hospital10-04-2023 Nurse Note* Marielos Santiago LPN - 05/29/2023 2:55 PM EDT Pt received flu vaccine in office today as ordered. Tolerated well. documented in this encounterOhiohealth Grady [facility] Hospital10-04-2023 History of Present illness Narrative* Sol Umana APRN.HABILITATIVE INTERVENTIONIST - 05/29/2023 2:11 PM EDT Chief Complaint Patient presents with: pain in rt groin HPI Bill Reynoso is a 77 year old male who presents here today for Above Complaints.. Gurinder is an established patient of Dr. Theresa MD. He is a new patient to me today. Concerns today... R groin pain -- X 1 month. Started with lower back and groin pain. Assumed MSK and/or sciatica pain initially. Back pain has resolved and now just groin pain. Pain worse with bending at the hips, either bending over or sitting. [facility] ED visit on 05/06 d/t these symptoms. Dx with kidney stone in bladder from CT abd/pelvis. Has been following up with urology -- urology believes kidney stone is not causing his groin pain. No concern for prostatitis from uruology per pt and . Made appointment to see general surgery next week d/t concern for hernia. X-ray hip on 05/[address] abd/pelvis in ER on 05/06 show no mass or hernia. UA 05/06 unremarkable. US kidney/bladder on 05/22 Pt denies any n/v/d/c, abd pain, or blood in stool or urine. Past medical history, appointments, medications, allergies reviewed. 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 Elevated prostate specific antigen (PSA) 11/22/2014 Family history of malignant neoplasm of gastrointestinal tract History of tear of ACL (anterior cruciate ligament) 1989 right knee Internal hemorrhoids without mention of complication Mitral valve disorders(424.0) Obstructive sleep apnea CPAP Other symptoms involving digestive system(787.99) Personal history of colonic polyps Colon polyps Snoring Unspecified essential hypertension Previous Surgical History PAST SURGICAL HISTORY Procedure Laterality Date ADENOIDECTOMY PRIMARY <AGE 14 Adenoidectomy CARDIOVERSION June 2021 CATARACT EXTRACTION HX Bilateral COLONOSCOPY FLX DX W/COLLJ SPEC WHEN PFRMD 12/21/2002 Colonoscopy COLONOSCOPY FLX DX W/COLLJ SPEC WHEN PFRMD 05/08/2007 Colonoscopy COLONOSCOPY FLX DX W/COLLJ SPEC WHEN PFRMD 06/05/2010 COLONOSCOPY FLX DX W/COLLJ SPEC WHEN PFRMD 09/07/2013 Repeat 4 years for screening COLONOSCOPY FLX DX W/COLLJ SPEC WHEN PFRMD 11/11/2017 Colonoscopy ESOPHAGOGASTRODUODENOSCOPY TRANSORAL DIAGNOSTIC 05/08/2007 EGD PAST SURGICAL HISTORY OF anal fissurectomy PAST SURGICAL HISTORY OF 2019 cyst removed behind left ear REMV CATARACT EXTRACAP,INSERT LENS SIGMOIDOSCOPY FLX DX W/COLLJ SPEC BR/WA IF PFRMD 08/01/2004 Sigmoidoscopy TONSILLECTOMY PRIMARY/SECONDARY <AGE 14 Tonsillectomy Family History FAMILY HISTORY Problem Relation Age of Onset Colon Cancer Mother Hypertension Mother Cancer Father Prostate Hypertension Father Colon Cancer Sister Breast Cancer Sister Patient Allergies ALLERGIES Allergen Reactions Adhesive Rash Dust Mites Naprosyn [Naproxen] GI Upset Current Medications Current Outpatient Medications on File Prior to Visit Medication Sig pantoprazole DR (PROTONIX) 40 mg tablet Take 1 tablet by mouth twice daily. flecainide (TAMBOCOR) 100 mg tablet TAKE ONE TABLET BY MOUTH TWICE DAILY sucralfate (CARAFATE) 1 gram tablet Take 1 g by mouth twice daily. tamsulosin (FLOMAX) 0.4 mg TAKE 2 CAPSULES BY MOUTH EVERY DAY 1/2 HOUR AFTER SAME MEAL EVERY DAY- MAXIMUM 0.8MG DAILY finasteride (PROSCAR) 5 mg tablet Take 1 tablet by mouth once daily. amLODIPine (NORVASC) 5 mg tablet Take 1 tablet by mouth once daily. levalbuterol tartrate HFA (XOPENEX HFA) 45 mcg/actuation inhaler Inhale 1-2 Puffs as instructed every 4 hours as needed for wheezing/shortness of breath. doxazosin (CARDURA) 4 mg tablet Take 1 tablet by mouth once daily. lisinopril (ZESTRIL) 20 mg tablet Take 1 tablet by mouth once daily. metoprolol succinate ER (TOPROL XL) 25 mg 24 hr tablet Take 1 tablet by mouth twice daily. blood sugar diagnostic (ACCU-CHEK GUIDE TEST STRIPS) test strip Use as instructed Lancing Device with Lancets (ACCU-CHEK MULTICLIX LANCET) 1 Each once daily. Blood Glucose Control High and Low (ACCU-CHEK GUIDE L1-L2 CTRL HAYDE) soln 1 Each as needed. metFORMIN ER (GLUCOPHAGE XR) 500 mg 24 hr tablet TAKE 2 TABLETS BY MOUTH TWICE DAILY BEFORE MEALS. Lancets lancets Test blood sugar(s) once times daily. Dx: Type 2 DM - Controlled E11.9 Insulin: No fquzjdpmgio-vyncwfxad-hicjomau (TRELEGY ELLIPTA) 200-62.5-25 mcg inhalation powder Inhale 1 Puff asinstructed once daily. apixaban (ELIQUIS) 5 mg tab(s) Take 1 tablet by mouth twice daily. pravastatin (PRAVACHOL) 40 mg tablet Take 1 tablet by mouth daily at bedtime. CPAP AutoPAP 12-20 cmH2O, nasal mask, humidity, filters. Lifetime supplies. Dx: 327.23. Fax compliance rpt to [facility] in 6 weeks. magnesium oxide (MAG-OXIDE ORAL) Take 400 mg by mouth once daily. BIOTIN ORAL Take by mouth. COQ10, LIPOSOMAL UBIQUINOL, ORAL Take by mouth once daily. Take for two weeks then restart statin. multivitamins w-minerals/lut(CENTRUM SILVER TAB) Take one(1) tablet daily. ASPIRIN 81 MG TAB Take by mouth once daily. Current Facility-Administered Medications on File Prior to Visit Medication perflutren lipid microspheres 1.3 mL in NaCl (PF) 0.9% 10 mL injection (DEFINITY) sodium chloride 0.9 % (flush) 10 mL (BD POSIFLUSH) Social History Social History Tobacco Use Smoking status: Never Smokeless tobacco: Never Tobacco comments: No one in household smokes. Vaping Use Vaping Use: Never used Substance Use Topics Alcohol use: Yes Alcohol/week: 2.5 - 5.0 standard drinks of alcohol Types: 1 - 2 Cans of Beer (12oz) per week Comment: once every 2 weeks Drug use: No REVIEW OF SYSTEMS: as above Reviewed relevant PMHx, PSHx, Social Hx, current medications and allergies. Review of Symptoms REVIEW OF SYSTEMS See HPI. EXAM: BP 120/58 (BP Site: Left Arm, BP Position: Sitting, BP Cuff Size: Large Adult) Pulse 60 Resp 14 Wt 106.7 kg (235 lb 3.2 oz) BMI 34.73 kg/m General Appearance: Well appearing, alert, in no acute distress, well-hydrated, well nourished.. Skin: Skin color, texture, turgor normal, no suspicious rashes or lesions. Head: Normocephalic, no masses, lesions, tenderness or abnormalities. Abdomen: Normal abdominal exam, Abdomen soft, non-tender. Bowel sounds normal. No masses, organomegaly, Negative CVA tenderness. Extremities: No deformities, edema, skin discoloration, clubbing or cyanosis. Good capillary refill. . Musculoskeletal: No joint swelling, deformity, or tenderness. Peripheral Pulses: Normal. Neurologic: Gait normal. Reflexes normal and symmetric. Sensation grossly intact.. Health Maintenance List Hepatitis B Vaccine(1 of 3 - Risk 3-dose series) Never done Shingrix Vaccine(2 of 3) due on 09/06/2009 Dilated Retinal Exam due on 02/23/2023 Urine Albumin:Creatinine Ratio due on 03/14/2023 Diabetic Foot Exam due on 03/21/2023 LDL Cholesterol due on 03/27/2023 Influenza Vaccine(1) due on 04/26/2023 Covid-19 Vaccine(6 - Moderna series) due on 05/29/2024 HbA1C due on 07/03/2023 Serum Creatinine due on 05/06/2024 Annual PCP Team Chronic Disease Visit due on 05/29/2024 BP Controlled (<130/80) due on 05/29/2024 DTaP,Tdap,Td Vaccine(2 - Td or Tdap) due on 10/14/2026 Colorectal Cancer Screening due on 12/22/2027 Spirometry Completed Advance Directive Discussion Completed Depression Assessment Completed Hepatitis C Screening Completed Pneumococcal Vaccine: 65+ Completed ASSESSMENT/PLAN: 1. Right inguinal pain - ICD9: 789.03, ICD10: R10.31 (primary diagnosis) Spoke with LELAND Lawton (PCP team) about plan of care. Leighann agrees with likely MSK in nature. Ordered US of pelvis/groin to further investigate prior to general surgery appointment. Discussed no concern of hernia from assessment or CT scan and unlikely diagnosis. Pt wants to continue with self-made gen surg consult as scheduled. - US PELVIS LTD 2. Encounter for immunization - ICD9: V03.89, ICD10: Z23 - INFLUENZA VACCINE, PRSV FREE, AGE 65+ YR, HIGH DOSE, QUADRIVALENT (FLUZONE HIGH-DOSE) RTO as needed. Prescription instructions reviewed with patient as applicable. Potential red flag symptoms discussed with the patient. Reviewed appropriate action plan to take if red flag symptoms occur. Patient agreeable to treatment plan. Sol Capps APRN.HABILITATIVE INTERVENTIONIST [address] [place] [address] documented in this encounterOhiohealth Grady [facility]09-29-2023 Miscellaneous Notes* Telephone Encounter - Ashlee Mathias - 05/24/2023 9:29 AM EDT Patients called and asked if Navin has reviewed the results of the US, please advise documented in this encounterOhiohealth Grady [facility]09-27-2023 Note[facility]-27-2023 History of Present illness Narrative* Alyssia Benitez RDMS - 05/22/2023 2:30 PM EDT Radiology Service Progress Note PATIENT NAME: Bill Reynoso DATE OF SERVICE: May 22, 2023 TIME: 3:13 PM PATIENT IDENTITY VERIFICATION COMPLETED USING TWO (2) IDENTIFIERS: Name and Date of confirmedby patient verbally. FALL SCREENING: Has the patient had 2 falls in the last year or 1 fall with injury or currently using an Ambulatory Assistive Device (Walker, Cane, Wheelchair, Crutches, etc.)? No PATIENT GENDER DATA: Male PATIENT RELEVANT IMPLANT DATA REVIEWED: Not Applicable RADIOLOGY DEPARTMENT: Ultrasound PERIPHERAL IV DATA: Not applicable SIGNED BY: Alyssia Benitez RDMS RVT May 22, 2023 3:13 PM documented in this encounterOhiohealth Grady [facility]09-21-2023 NoteSam[facility]09-21-2023 History of Present illness Narrative* Anaid Hensley RT(R) - 05/16/2023 2:30 PM EDT Radiology Service Progress Note PATIENT NAME: Bill Reynoso DATE OF SERVICE: May 16, 2023 TIME: 2:29 PM PATIENT IDENTITY VERIFICATION COMPLETED USING TWO (2) IDENTIFIERS: Name and Date of confirmedby patient verbally. FALL SCREENING: Has the patient had 2 falls in the last year or 1 fall with injury or currently using an Ambulatory Assistive Device (Walker, Cane, Wheelchair, Crutches, etc.)? No PATIENT GENDER DATA: Male PATIENT RELEVANT IMPLANT DATA REVIEWED: Yes RADIOLOGY DEPARTMENT: General X-ray: Exam(s) Completed: Pelvis X-Ray: Pelvis with Hip Right PERIPHERAL IV DATA: Not applicable SIGNED BY: RT Mckenna(R) May 16, 2023 2:29 PM documented in this encounterOhiohealth Grady [facility]09-21-2023 Miscellaneous Notes* Telephone Encounter - Leighann Carmichael APRN.CNP - 05/16/2023 9:20 AM EDT As the back has improved with the steroids but groin pain continuing, I agree groin pain is from the kidney stone. I did order xray as requested. Thank you Leighann Carmichael APRN.CNP * Telephone Encounter - Pedro Pablo Ma Lisseth - 05/15/2023 2:51 PM EDT Spoke with Anju, patient has 2 doses of prednisone left, patient states he didn't think it helped much. Back pain has improved but groin is still bothersome. Patient is also passing a kidney stone so possibly pain is originating from that? is asking for x ray of the hip just for documentati on. * Telephone Encounter - Leighann Carmichael APRN.CNP - 05/15/2023 2:09 PM EDT If pain is still present, we need to get an xray. How is he feeling? Thank you Leighann Carmichael APRN.CNP * Telephone Encounter - Nicki Rascon Ma - 05/10/2023 3:43 PM EDT Pt notified. He states he will keep watch on the glucose and heart. He is having right hip and groin pain. He is asking if he should get xray for the hip? Nicki Rascon Ma * Telephone Encounter - Leighann Carmichael APRN.CNP - 05/10/2023 3:26 PM EDT Yes I can but want him to closely monitor his glucose as this can increase it greatly. Prednisone can irritate your heart rhythm so need to closely monitor this as well. Also, I am ordering the last dosage of prednisone he had as I am assuming her tolerated it so hopefully won't have any cardiac side effects. I sent to [facility]. Thank you Leighann Carmichael APRN.CNP * Telephone Encounter - Ankita Leslie RN - 05/10/2023 9:27 AM EDT Patient calls to ask if provider would consider a short supply of prednisone for right back/hip/groin pain as discussed at appointment on 05/03 per patient. Patient reports no improvement in pain. ER on 05/06/[address] of abdomen was done 3 mm calculus left base of bladder noted. No hydronephrosis. Pharmacy is [facility]. Ankita Leslie RN documented in this encounterOhiohealth Grady [facility]09-13-2023 Note[facility]09-13-2023 NoteSam[facility]09-13-2023 NoteSam[facility]09-13-2023 History of Present illness Narrative* Alice Holt PA-C - 05/08/2023 9:30 AM EDT Images from the original note were not included. Patient: Bill Reynoso PCP: Jo Woods MD CC: follow up HPI: Bill Reynoso 77 year old obese male non-smoker with PMH significant for AF, CAD, BROCK on CPAP, HLD, GERD, DM, HTN and asthma. Current therapy with Trelegy ellipta 1 inhalation daily and Xopenex as needed. 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 States when he awakes he has to blow his nose several times. Flonase doesn't seem to make a difference. 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 No wheezing. Some SCHAEFER, but it does not limit his activities. He walks dogs nightly approximately 5 blocks. 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 Elevated prostate specific antigen (PSA) 11/22/2014 Family history of malignant neoplasm of gastrointestinal tract History of tear of ACL (anterior cruciate ligament) 1989 right knee Internal hemorrhoids without mention of complication Mitral valve disorders(424.0) Obstructive sleep apnea CPAP Other symptoms involving digestive system(787.99) Personal history of colonic polyps Colon polyps Snoring Unspecified essential hypertension Allergies: Adhesive Rash Dust Mites Naprosyn [Naproxen] GI Upset tiZANidine (ZANAFLEX) 4 mg tablet^Take 1 tablet by mouth every 8 hours as needed (muscle spasms).^Disp: 15 tablet^Rfl: [address] (PROTONIX) 40 mg tablet^Take 1 tablet by mouth twice daily.^Disp: 180 tablet^Rfl: 3 flecainide (TAMBOCOR) 100 mg tablet^TAKE ONE TABLET BY MOUTH TWICE DAILY^Disp: 180 tablet^Rfl: 3 sucralfate (CARAFATE) 1 gram tablet^Take 1 g by mouth twice daily.^Disp: ^Rfl: tamsulosin (FLOMAX) 0.4 mg^TAKE 2 CAPSULES BY MOUTH EVERY DAY 1/2 HOUR AFTER SAME MEAL EVERY DAY- MAXIMUM 0.8MG DAILY^Disp: 180 capsule^Rfl: 3 finasteride (PROSCAR) 5 mg tablet^Take 1 tablet by mouth once daily.^Disp: 90 tablet^Rfl: 3 amLODIPine (NORVASC) 5 mg tablet^Take 1 tablet by mouth once daily.^Disp: 90 tablet^Rfl: 3 fluticasone (FLONASE) 50 mcg/actuation nasal spray^Use 1 Ilfeld in each nostril once daily.^Disp: 16mL^Rfl: 5 (Patient taking differently: Use 1 Ilfeld in each nostril once daily as needed for cold/allergy symptoms.) levalbuterol tartrate HFA (XOPENEX HFA) 45 mcg/actuation inhaler^Inhale 1-2 Puffs as instructed every 4 hours as needed for wheezing/shortness of breath.^Disp: 15 g^Rfl: 11 doxazosin (CARDURA) 4 mg tablet^Take 1 tablet by mouth once daily.^Disp: 90 tablet^Rfl: 3 lisinopril (ZESTRIL) 20 mg tablet^Take 1 tablet by mouth once daily.^Disp: 90 tablet^Rfl: 3 metoprolol succinate ER (TOPROL XL) 25 mg 24 hr tablet^Take 1 tablet by mouth twice daily.^Disp: 180 tablet^Rfl: 3 blood sugar diagnostic (ACCU-CHEK GUIDE TEST STRIPS) test strip^Use as instructed^Disp: 100 Strip^Rfl: 3 Lancing Device with Lancets (ACCU-CHEK MULTICLIX LANCET)^1 Each once daily.^Disp: 100 Each^Rfl: 3 Blood Glucose Control High and Low (ACCU-CHEK GUIDE L1-L2 CTRL HAYDE) soln^1 Each as needed.^Disp: 1 Each^Rfl: 3 metFORMIN ER (GLUCOPHAGE XR) 500 mg 24 hr tablet^TAKE 2 TABLETS BY MOUTH TWICE DAILY BEFORE MEALS.^Disp: 360 tablet^Rfl: 3 Lancets lancets^Test blood sugar(s) once times daily. Dx: Type 2 DM - Controlled E11.9 Insulin: No^Disp: 100 Each^Rfl: 11 afmxehriqmo-aifxygkzo-qpwubvna (TRELEGY ELLIPTA) 200-62.5-25 mcg inhalation powder^Inhale 1 Puff asinstructed once daily.^Disp: 180 Each^Rfl: 3 apixaban (ELIQUIS) 5 mg tab(s)^Take 1 tablet by mouth twice daily.^Disp: 180 tablet^Rfl: 3 pravastatin (PRAVACHOL) 40 mg tablet^Take 1 tablet by mouth daily at bedtime.^Disp: 90 tablet^Rfl: 3 CPAP^AutoPAP 12-20 cmH2O, nasal mask, humidity, filters. Lifetime supplies. Dx: 896.23. Fax compliance rpt to [place] in 6 weeks.^Disp: 1 Each^Rfl: 1 magnesium oxide (MAG-OXIDE ORAL)^Take 400 mg by mouth once daily.^Disp: ^Rfl: BIOTIN ORAL^Take by mouth.^Disp: ^Rfl: COQ10, LIPOSOMAL UBIQUINOL, ORAL^Take by mouth once daily. Take for two weeks then restart statin.^Disp: ^Rfl: multivitamins w-minerals/lut(CENTRUM SILVER TAB)^Take one(1) tablet daily.^Disp: ^Rfl: 0 ASPIRIN 81 MG TAB^Take by mouth once daily.^Disp: ^Rfl: 0 Social History Tobacco Use Smoking status: Never Smokeless tobacco: Never Tobacco comments: No one in household smokes. Vaping Use Vaping Use: Never used Substance Use Topics Alcohol use: Yes Alcohol/week: 2.5 - 5.0 standard drinks of alcohol Types: 1 - 2 Cans of Beer (12oz) per week Comment: once every 2 weeks Drug use: No Family History Problem Relation Age of Onset Colon Cancer Mother Hypertension Mother Cancer Father Prostate Hypertension Father Colon Cancer Sister Breast Cancer Sister PAST SURGICAL HISTORY Procedure Laterality Date ADENOIDECTOMY PRIMARY <AGE 14 Adenoidectomy CARDIOVERSION June 2021 CATARACT EXTRACTION HX Bilateral COLONOSCOPY FLX DX W/COLLJ SPEC WHEN PFRMD 12/21/2002 Colonoscopy COLONOSCOPY FLX DX W/COLLJ SPEC WHEN PFRMD 05/08/2007 Colonoscopy COLONOSCOPY FLX DX W/COLLJ SPEC WHEN PFRMD 06/05/2010 COLONOSCOPY FLX DX W/COLLJ SPEC WHEN PFRMD 09/07/2013 Repeat 4 years for screening COLONOSCOPY FLX DX W/COLLJ SPEC WHEN PFRMD 11/11/2017 Colonoscopy ESOPHAGOGASTRODUODENOSCOPY TRANSORAL DIAGNOSTIC 05/08/2007 EGD PAST SURGICAL HISTORY OF anal fissurectomy PAST SURGICAL HISTORY OF 2019 cyst removed behind left ear REMV CATARACT EXTRACAP,INSERT LENS SIGMOIDOSCOPY FLX DX W/COLLJ SPEC BR/WA IF PFRMD 08/01/2004 Sigmoidoscopy TONSILLECTOMY PRIMARY/SECONDARY <AGE 14 Tonsillectomy I reviewed the past medical history, family history, social history and surgical history with changes noted above and updated in EMR. IMMUNIZATIONS Prevnar - 02/03/2016, 09/04/2014, 06/26/2004 Pneumovax 23 - 02/03/2016, 09/04/2014, 06/26/2014 Influenza - 06/14/2022 COVID-19 - 06/20/2022, 12/11/2021, 06/27/2021, 11/08/2020, 10/11/2020 ROS: General: No fevers, chills or night sweats. No unintended weight loss. Eyes, Ears, nose, throat: See HPI. Vision stable. Cardiac: No angina, edema, orthopnea. Resp: See HPI. GI: No heartburn, dysphagia. Musculoskeletal: No pain. Neuro: No headache, focal weakness, tremor. Skin: No rash. Otherwise negative. PHYSICAL EXAMINATION: BP 130/82 Pulse (!) 56 Resp 17 Wt 106.1 kg (234 lb) SpO2 95% BMI 34.56 kg/m Gen: No acute distress. Cooperative with examination. HEENT: Normocephalic. Sclera, conjunctiva clear. Oral hygeine and dentition good. No thrush. Resp: No stridor, accessory respiratory muscle use, supra-sternal or intercostal retractions. No wheezes, crackles. CV: Regular rythm. Heart tones normal. Radial pulses normal. Abd: Non distended. MSK: No kyphoscoliosis. Ext: Warm and well perfused. No clubbing, cyanosis, edema. Skin: No rash, ecchymoses. Neuro: Mental status normal. Affect normal. No tremor. DATA: DATA: IMPRESSION: Spirometry shows no obstruction.The reduced FVC suggests restriction. Recommend lung volumes if clinically indicated. Electronically Signed On 04-02-2022 16:21:29 EDT by Alexa Chino MD Exhaled nitric oxide (Dipesh), 05/08/2023: 20 (normal < 20). Test Date Oral Exhaled Nitric Oxide (ppb) 03/06/2023 23.0 11/15/2022 44.0 (A) 09/17/2022 24.0 05/03/2022 34.0 04/02/2022 68.0 (A) 09/17/2019 6.0 ASSESSMENT/PLAN: 1. Moderate persistent asthma without complication - ICD9: 493.90, ICD10: J45.40 (primary diagnosis) Normal Dipesh today. Continue Trelegy daily. Rinse mouth after each use to help prevent oral thrush. Xopenex HFA inhaler, 2 inhalations 10-15 minutes prior to activities associated with shortness of breath, and as needed for rescue relief of shortness of breath or wheezing, up to 4 times daily. 2. Allergy, subsequent encounter - ICD9: V58.89, ICD10: T78.40XD Discontinue Flonase secondary to ocular serous retinopathy and patient does not feel it is beneficial. Start OTC antihistamine. Dust mite precautions. Portions of this documentation were copied and pasted from previous office visit notes in order to provide a cohesive continuity of the history. The note has been reviewed and edited and updated as necessary. Alice Holt PA-C documented in this encounterOhiohealth Grady [facility]09-13-2023 Nurse Note* Dafne Fritz LPN - 05/08/2023 9:24 AM EDT Intake information documented in the prior visit with GURJIT De La Paz today. documented in this encounterOhiohealth Grady [facility] Hospital09-13-2023 Procedure note* Megha Black RPFT - 05/08/2023 9:24 AM EDTAssociated Order(s): NITRIC OXIDE, EXHALED RESPIRATORY THERAPY ORAL EXHALED NITRIC OXIDE SERVICE DATE: 05/08/2023 SERVICE TIME: 9:24 AM Oral Exhaled Nitric Oxide measurement: 20.0 (ppb) Normal: Adult 5-20 ppb, pediatric (<12 years) 5-15 ppb High Normal / Increased: Adult 20-35 ppb, pediatric (<12 years) 15-25 ppb Moderately raised exhaled Nitric Oxide may indicate underlying inflammation, but note that: Cold and influenza can raise exhaled Nitric Oxide and some patients have higher baseline exhaled Nitric Oxide levels than others. High: Adult >35 ppb, pediatric (<12 years) >25 ppb Indicative of ongoing eosinophilic inflammation. Symptomatic patient likely to respond to steroids. Possible causes (if already on steroids): Poor compliance, recent allergen exposure, steroid dose inadequate, and steroid resistance. Note that not all patients with high exhaled nitric oxide levels display symptoms. Oral Exhaled Nitric Oxide measurement (Previous Encounters) Test Date Oral Exhaled Nitric Oxide (ppb) 05/08/2023 20.0 03/06/2023 23.0 11/15/2022 44.0 (A) 09/17/2022 24.0 05/03/2022 34.0 04/02/2022 68.0 (A) 09/17/2019 6.0 NAME: GURJIT De La Paz PATIENT NAME: Bill Reynoso DATE: May 08, 2023 TIME: 9:24 AM documented in this encounterOhiohealth Grady [facility]09-13-2023 History of Present illness Narrative* Megha Black RPFT - 05/08/2023 9:21 AM EDT PULM FUNCTION SMARTBLOCK: Provider: Alice Holt PA-C Assisting Tech: Megha Black RPFT Exhaled Nitric Oxide: 1 documented in this encounterOhiohealth Grady [facility] Hospital09-11-2023 Miscellaneous Notes* Telephone Encounter - Leighann Carmichael APRN.CNP - 05/06/2023 3:56 PM EDT Noted and I agree. With his recent noted kidney stones, ER is best option for STAT imaging. Thank you Leighann Carmichael APRN.CNP * Telephone Encounter - Rachna Fernandez LPN - 05/06/2023 10:06 AM EDT Patient calling he said his right groin pain has intensified today. Patient said he is in [place] today and plans to go to [facility] ER for evaluation. Aware note is being sent to INTAKE ASSESSOR with update. documented in this encounterOhiohealth Grady [facility] Hospital09-08-2023 NoteSam[facility]09-08-2023 History of Present illness Narrative* Leighann Carmichael APRN.CNP - 05/03/2023 7:45 AM EDT CC: Patient presents with: Back Pain: Low back pain, hip pain x 4 days HPI Bill Reynoso is a 77 year old male who presents with low back pain. Woke up Saturday with pain to right lower back that radiates into groin. States he had been moving around objects at home prior to this. Describes as an ache and worsens with taking steps. Tylenol does help. Seemed better this morning but when he started walking the pain started again. Has a history of severe back spasms. Denies any injury, weakness, numbness, abdominal pain, N/V/D, blood in urine, or saddle anesthesia. Associated symptoms include none. History of small right sided kidney stone he has been seeing urology for without any concerns. Denies difficulty urinating, abdominal pain, blood in urine, or change in urination. REVIEW OF SYSTEMS General: no fevers, no chills, no night sweats, no recurrent infections, no change in appetite, no change in energy, and no significant changes in weight Respiratory: See HPI, Negative for Cough, Hemoptysis, Wheezing or Shortness of Breath Cardiovascular: Negative for: no chest pain, no chest pressure, no palpitations, and no swelling Skin: Negative for lesions, rash, and itching 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 Elevated prostate specific antigen (PSA) 11/22/2014 Family history of malignant neoplasm of gastrointestinal tract History of tear of ACL (anterior cruciate ligament) 1989 right knee Internal hemorrhoids without mention of complication Mitral valve disorders(424.0) Obstructive sleep apnea CPAP Other symptoms involving digestive system(787.99) Personal history of colonic polyps Colon polyps Snoring Unspecified essential hypertension PAST SURGICAL HISTORY Procedure Laterality Date ADENOIDECTOMY PRIMARY <AGE 14 Adenoidectomy CARDIOVERSION June 2021 CATARACT EXTRACTION HX Bilateral COLONOSCOPY FLX DX W/COLLJ SPEC WHEN PFRMD 12/21/2002 Colonoscopy COLONOSCOPY FLX DX W/COLLJ SPEC WHEN PFRMD 05/08/2007 Colonoscopy COLONOSCOPY FLX DX W/COLLJ SPEC WHEN PFRMD 06/05/2010 COLONOSCOPY FLX DX W/COLLJ SPEC WHEN PFRMD 09/07/2013 Repeat 4 years for screening COLONOSCOPY FLX DX W/COLLJ SPEC WHEN PFRMD 11/11/2017 Colonoscopy ESOPHAGOGASTRODUODENOSCOPY TRANSORAL DIAGNOSTIC 05/08/2007 EGD PAST SURGICAL HISTORY OF anal fissurectomy PAST SURGICAL HISTORY OF 2019 cyst removed behind left ear REMV CATARACT EXTRACAP,INSERT LENS SIGMOIDOSCOPY FLX DX W/COLLJ SPEC BR/WA IF PFRMD 08/01/2004 Sigmoidoscopy TONSILLECTOMY PRIMARY/SECONDARY <AGE 14 Tonsillectomy ALLERGIES Adhesive, Dust Mites, and Naprosyn [Naproxen] MEDICATIONS pantoprazole DR (PROTONIX) 40 mg tablet^Take 1 tablet by mouth twice daily.^Disp: 180 tablet^Rfl: 3 flecainide (TAMBOCOR) 100 mg tablet^TAKE ONE TABLET BY MOUTH TWICE DAILY^Disp: 180 tablet^Rfl: 3 sucralfate (CARAFATE) 1 gram tablet^Take 1 g by mouth twice daily.^Disp: ^Rfl: tamsulosin (FLOMAX) 0.4 mg^TAKE 2 CAPSULES BY MOUTH EVERY DAY 1/2 HOUR AFTER SAME MEAL EVERY DAY- MAXIMUM 0.8MG DAILY^Disp: 180 capsule^Rfl: 3 finasteride (PROSCAR) 5 mg tablet^Take 1 tablet by mouth once daily.^Disp: 90 tablet^Rfl: 3 amLODIPine (NORVASC) 5 mg tablet^Take 1 tablet by mouth once daily.^Disp: 90 tablet^Rfl: 3 fluticasone (FLONASE) 50 mcg/actuation nasal spray^Use 1 Ilfeld in each nostril once daily.^Disp: 16mL^Rfl: 5 (Patient taking differently: Use 1 Ilfeld in each nostril once daily as needed for cold/allergy symptoms.) levalbuterol tartrate HFA (XOPENEX HFA) 45 mcg/actuation inhaler^Inhale 1-2 Puffs as instructed every 4 hours as needed for wheezing/shortness of breath.^Disp: 15 g^Rfl: 11 doxazosin (CARDURA) 4 mg tablet^Take 1 tablet by mouth once daily.^Disp: 90 tablet^Rfl: 3 lisinopril (ZESTRIL) 20 mg tablet^Take 1 tablet by mouth once daily.^Disp: 90 tablet^Rfl: 3 metoprolol succinate ER (TOPROL XL) 25 mg 24 hr tablet^Take 1 tablet by mouth twice daily.^Disp: 180 tablet^Rfl: 3 blood sugar diagnostic (ACCU-CHEK GUIDE TEST STRIPS) test strip^Use as instructed^Disp: 100 Strip^Rfl: 3 Lancing Device with Lancets (ACCU-CHEK MULTICLIX LANCET)^1 Each once daily.^Disp: 100 Each^Rfl: 3 Blood Glucose Control High and Low (ACCU-CHEK GUIDE L1-L2 CTRL HAYDE) soln^1 Each as needed.^Disp: 1 Each^Rfl: 3 metFORMIN ER (GLUCOPHAGE XR) 500 mg 24 hr tablet^TAKE 2 TABLETS BY MOUTH TWICE DAILY BEFORE MEALS.^Disp: 360 tablet^Rfl: 3 Lancets lancets^Test blood sugar(s) once times daily. Dx: Type 2 DM - Controlled E11.9 Insulin: No^Disp: 100 Each^Rfl: 11 fjelrezisji-apjsazcfb-nwmtgzfx (TRELEGY ELLIPTA) 200-62.5-25 mcg inhalation powder^Inhale 1 Puff asinstructed once daily.^Disp: 180 Each^Rfl: 3 apixaban (ELIQUIS) 5 mg tab(s)^Take 1 tablet by mouth twice daily.^Disp: 180 tablet^Rfl: 3 pravastatin (PRAVACHOL) 40 mg tablet^Take 1 tablet by mouth daily at bedtime.^Disp: 90 tablet^Rfl: 3 CPAP^AutoPAP 12-20 cmH2O, nasal mask, humidity, filters. Lifetime supplies. Dx: 327.23. Fax compliance rpt to [place] in 6 weeks.^Disp: 1 Each^Rfl: 1 magnesium oxide (MAG-OXIDE ORAL)^Take 400 mg by mouth once daily.^Disp: ^Rfl: BIOTIN ORAL^Take by mouth.^Disp: ^Rfl: COQ10, LIPOSOMAL UBIQUINOL, ORAL^Take by mouth once daily. Take for two weeks then restart statin.^Disp: ^Rfl: multivitamins w-minerals/lut(CENTRUM SILVER TAB)^Take one(1) tablet daily.^Disp: ^Rfl: 0 ASPIRIN 81 MG TAB^Take by mouth once daily.^Disp: ^Rfl: 0 FAMILY HISTORY Problem Relation Age of Onset Colon Cancer Mother Hypertension Mother Cancer Father Prostate Hypertension Father Colon Cancer Sister Breast Cancer Sister Social History Tobacco Use Smoking status: Never Smokeless tobacco: Never Tobacco comments: No one in household smokes. Vaping Use Vaping Use: Never used Substance Use Topics Alcohol use: Yes Alcohol/week: 2.5 - 5.0 standard drinks of alcohol Types: 1 - 2 Cans of Beer (12oz) per week Comment: once every 2 weeks Drug use: No PHYSICAL EXAM BP 144/80 Pulse (!) 56 Resp 16 Wt 107 kg (236 lb) SpO2 94% BMI 34.85 kg/m General Appearance: well appearing, in no acute distress, alert Skin: Skin color, texture, turgor normal for age; Back: normal to inspection. nontender with palpation of spine or with palpation of paraspinal muscles. ROM: full ROM with reported pain mainly with flexion . Reflexes:2+. Muscle strength: 5/5 bilaterally. SLR: Supine - Right Negative, Left Negative Seated - Right Negative, Left Negative. Lungs: Lungs clear to auscultation. No wheezing, rhonchi, rales. Heart: RRR without murmur, gallop, or rubs. No ectopy Abdomen: Abdomen soft, non-tender. Bowel sounds normal. No masses, organomegaly, Negative CVA tenderness Extremities: No deformities, edema, skin discoloration, clubbing or cyanosis. Good capillary refill. Musculoskeletal: No joint swelling, deformity, or tenderness ASSESSMENT/PLAN: 1. Acute right-sided low back pain without sciatica - ICD9: 724.2, ICD10: M54.50 (primary diagnosis) - probable muscle strain, with history of renal disease and diabetes will not treat with NSAID or steroid at this time. - with history of kidney stones did test urine. Trace blood found but can be inaccurate finding on dip so sent for further evaluation. If no improvement in pain and blood noted on microanalysis will need further imaging - also has history of bladder cancer but no pain to bones, abnormal changes in weight at this time.If pain continues imaging may be indicated -Tizandine as ordered and low back exercises as discussed - if no improvement over the next 5-7 days follow back up and my trial small amount of prednisone and order physical therapy No alarm symptoms or exam findings. Also discussed non-medication measures with ice, heat, - go to ER for any increase pain, weakness, loss of bowel or bladder control, numbness, or any other urgent concerns. - UA DIP, URINE (POC) - URINALYSIS, WITH MICROSCOPIC 2. Hematuria, unspecified type - ICD9: 599.70, ICD10: R31.9 - with history of kidney stones - urine dip performed showing trace amount of blood, will evaluate further as this may not be accurate - URINALYSIS, WITH MICROSCOPIC - URINE CULTURE Prescription instructions reviewed with patient as applicable. Potential red flag symptoms discussed with the patient. Reviewed appropriate action plan to take if red flag symptoms occur. Patient agreeable to treatment plan. Leighann Carmichael APRN.CNP documented in this encounterOhio[facility]08-28-2023 [facility]-2023 Note[facility]08-28-2023 History of Present illness Narrative* Mandi Ward AUD - 04/22/2023 1:44 PM EDT Head [facility] Ne[facility] [place] HEARING AID CHECK Name: Bill Reynoso CCF#: [id number] Date of Service: 04/22/2023 Date of : 1945 Age: [age] year old DEVICE INFORMATION RIGHT: ReSound LINX 3D 761 SN:[id number] Special Effects Makeup Artist/Dome: tulip, 1MP LEFT: ReSound LINX 3D 761 SN: [id number] Special Effects Makeup Artist/Dome: tulip, 1MP BATTERY: 312 (brown) Fitting Date: 03/05/2018 Repair Warranty Expiration Date: 2 years Loss/Damage Expiration Date: 2 years Fitting Contract Assistant: Ofe Lamas MA, CCC-A Wax Traps: GN ReSound WaxFilter (stick) Retention: Yes Remote Support Activated: No Phone Connectivity: Yes Lambert Connectivity: Yes SUBJECTIVE ASSESSMENT Bill Reynoso, was seen today for a hearing aid check of the above device(s). Patient reportedthat he can hear sounds with his devices but speech is not clear. DEVICE CHECK Initial listening check and visual inspection revealed devices to be weak but functional. Next, thedevice(s) were cleaned and checked. The domes, wax guards, and retention lines were changed. Device(s) were brushed/vacuumed and devices run through the drying chamber. Listening check revealed improved function of the device(s). Device(s) were returned to patient who reported satisfaction with sound quality. PROGRAMMING The device(s) were programmed accordingly to address the outcome measures and patient's comments. Fitting Formula: Audiogram+ Acclimatization: 100% Volume Control: Yes Feedback Rotary Adjuster: Completed previously. Data Logging: N/a Additional programming included: Verification completed to NAL-NL2 fitting rationale. Hearing Aid Programs P1 All Around Patient was satisfied with the sound quality and fit of the devices today. VERIFICATION - REAL EAR MEASURES Measurements to account for unique size and shape of the patient's ears in hearing aid programming included: Real Ear verification. Adjustments were made based on measurement of soft (55 dB HL), medium (65 dB HL), and loud (75 dB HL) speech, as well as maximum permissible output (MPO), to ensure the most appropriate amplification is being provided. Speech Intelligibility Index (SII) Verified at 10% adaptation level using NAL-NL2 targets. RIGHT Meeting targets from 250--3000 Hz LEFT Meeting targets from 250-4000 Hz UNAIDED AIDED UNAIDED AIDED Soft (55 dB HL) 53 63 49 62 Average (65 dB HL) 61 71 64 74 Loud (75 dB HL) 69 74 74 79 The results indicated the patient will have increased access to the sounds of speech and language when using these devices. COUNSELING Device counseling was provided covering the following points: demonstrating local truck driver apps 2. Discussed age of devices and replacing them if a repair is needed. At this time devices are functioning well and we will continue to use as is. FINANCIAL COMPONENT Patient patient's insurance will be billed $100 for today's appointment fee. RECOMMENDATIONS * Use of hearing device(s) during all waking hours except when activities preclude device safety. * Schedule a hearing aid check annually or sooner if concerns arise. * Return for re-evaluation as medically indicated or sooner if change is noted. Ashia Avila, [facility] Clinical and Senior Hearing Implant Contract Assistant documented in this encounterOhiohealth Grady [facility]08-28-2023 History of Present illness Narrative* Mandi Ward AUD - 04/22/2023 1:09 PM EDT Head and Neck [place] AUDIOLOGIC EVALUATION REPORT Name: Bill Reynoso CC#: [id number] Date of Service: 04/22/2023 Date of : 1945 Age: [age] year old Referred by: Self Referred for: Evaluation of suspected change in hearing, tinnitus, or balance. Referral documented: No referral on file Patient's major complaints: Hearing loss: Noticing that with his hearing aid the volume is improved but not the clarity of speech. Tinnitus: denied Ear pain: denied Aural fullness: denied Otorrhea: denied History of ear infections: denied History of otologic surgeries: Had a bump behind his left ear removed approximately 2 years ago-benign. 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 Use lawn equipment (now use hearing protection). History of chemotherapy or radiation: denied History of head trauma: Hx of [id number] on ice, hit head no change in hearing noted. Bill Nelson Angeles was seen for a recheck audiologic evaluation. See SmartForm Audiogram for additional reported history and symptoms. Risk of Falls Documentation for over 65 years old: No history of falls reported so minimal to no risk IMPRESSIONS RIGHT EAR: Sensorineural hearing loss LEFT EAR: Sensorineural hearing loss Comparison of today's results with previous test results (07/05/2017): Today's results suggest a decrease in the right ear, Today's results reveal no significant change in the left ear AUDIOLOGIC EVALUATION Following is a brief interpretation of the obtained findings from the audiologic evaluation. Refer to the Auditory Test Record for complete audiometric results. The patient was counseled about the test findings and appropriate audiologic recommendations were made. SUMMARY: Audiogram can be viewed under Forms/Audiology/SmartForm. OTOSCOPY RIGHT EAR: Otoscopic inspection revealed ear canal was clear with an identifiable cone of light. LEFT EAR: Otoscopic inspection revealed ear canal was clear with an identifiable cone of light. TYMPANOMETRY Description of procedure: This test is an objective evaluation of middle ear function. CPT code: 07412 RIGHT EAR: Did not test. LEFT EAR: Did not test. ACOUSTIC REFLEXES Description of procedure: This test is an objective measure of auditory and facial nerve pathways. CPT code: 49856, 04308 RIGHT EAR PROBE EAR: (ipsi right stimulus ear; contralateral left stimulus ear): Acoustic Reflex Pattern Did not test Acoustic Reflex Decay (left stimulus ear): Did not test. LEFT EAR PROBE EAR: (ipsi left stimulus ear; contralateral right stimulus ear): Acoustic Reflex Pattern Did not test Acoustic Reflex Decay (right stimulus ear):Did not test. PURE TONE AUDIOMETRY AND SPEECH TESTING Description of procedure: This test is an objective evaluation hearing sensitivity via air and boneconduction and speech recognition testing. CPT code:20476 RIGHT EAR: Hearing Sensitivity: Essentially WNL through 1500 Hz sloping mild to severe SNHL Word Recognition Score: Excellent (90-100%). WRS is consistent with hearing sensitivity. Words werepresented at 65 dB HL is above (greater than or equal to 60 dB HL) intensity level for average conversational speech. The NU-6 Ordered by Difficulty Word List (10 words) was used for testing. LEFT EAR: Hearing Sensitivity: Mild SNHL rising to WNL at 1000 & 1500 Hz sloping mild to moderately severe SNHL Word Recognition Score: Excellent (90-100%). WRS is consistent with hearing sensitivity. Words werepresented at 65 dB HL which is above (greater than or equal to 60 dB HL) intensity level for average conversational speech. The NU-6 Ordered by Difficulty Word List (10 words) was used for testing. RECOMMENDATIONS * Continue medical follow-up with Jo Woods MD as needed. * The patient was counseled regarding the need to continue to monitor hearing and have regular hearing assessments. * The patient was counseled about hearing conservation and use of noise protectors. Information about hearing protection devices was provided to the patient. * The patient was counseled regarding effective communication strategies to enhance communication ability. * Continue consistent use of hearing aid technology during all waking hours. * Recommend continue with plans for a hearing aid check today following audiogram for maintenance and potential programming needs. Ashia Avila, [facility]-A Clinical and Senior Hearing Implant Contract Assistant FARRELL Abbrev- iation Definition Degree of hearing sensitivity dB range WNL within normal limits WNL 0 - 20 SNHL sensorineural hearing loss Mild 20-40 CHL conductive hearing loss Moderate 40-55 MHL mixed hearing loss Moderately-Severe 55-70 WRS word recognition score Severe 70-90 ME middle ear Profound 90 + TM tympanic membrane documented in this encounterOhiohealth [facility]ady [facility]07-12-2023 NoteSam[facility]07-12-2023 NoteSam[facility] Hospital07-12-2023 NoteSamaritan Hospital07-12-2023 History of Present illness Narrative* Alice Holt PA-C - 03/06/2023 10:30 AM EDT Images from the original note were not included. Patient: Bill Reynoso PCP: Jo Woods MD CC: asthma follow-up HPI: Bill Reynoso 77 year old obese male non-smoker with PMH significant for AF, CAD, BROCK on CPAP, HLD, GERD, DM, HTN and asthma. Current therapy with Trelegy ellipta 1 inhalation daily with Xopenex as needed. Previously on Singulair, but discontinued because he did not feel it made any difference in symptoms. Patient was previously evaluated by Dr. Marie, allergy, and instructed to take OTCanti-histamine and Flonase nasal spray on a regular basis. To follow- up as needed. Today, he reports no significant cough or sputum production. Occasional wheezing and SCHAEFER. Walks dogs nightly approximately 5 blocks. Exhaled nitric oxide improved today. Recent EGD at [facility] [place] demons trated reflux esophagitis, hiatal hernia, chronic gastritis and a few gastric polyps (I do not havepathology reports) and patient was continued on PPI and Sucralfate added twice daily. Denies refluxsymptoms. 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 Elevated prostate specific antigen (PSA) 11/22/2014 Family history of malignant neoplasm of gastrointestinal tract History of tear of ACL (anterior cruciate ligament) 1989 right knee Internal hemorrhoids without mention of complication Mitral valve disorders(424.0) Obstructive sleep apnea CPAP Other symptoms involving digestive system(787.99) Personal history of colonic polyps Colon polyps Snoring Unspecified essential hypertension Allergies: Adhesive Rash Dust Mites Naprosyn [Naproxen] GI Upset pantoprazole DR (PROTONIX) 40 mg tablet^Take 1 tablet by mouth twice daily.^Disp: 180 tablet^Rfl: 3 flecainide (TAMBOCOR) 100 mg tablet^TAKE ONE TABLET BY MOUTH TWICE DAILY^Disp: 180 tablet^Rfl: 3 sucralfate (CARAFATE) 1 gram tablet^Take 1 g by mouth twice daily.^Disp: ^Rfl: tamsulosin (FLOMAX) 0.4 mg^TAKE 2 CAPSULES BY MOUTH EVERY DAY 1/2 HOUR AFTER SAME MEAL EVERY DAY- MAXIMUM 0.8MG DAILY^Disp: 180 capsule^Rfl: 3 finasteride (PROSCAR) 5 mg tablet^Take 1 tablet by mouth once daily.^Disp: 90 tablet^Rfl: 3 amLODIPine (NORVASC) 5 mg tablet^Take 1 tablet by mouth once daily.^Disp: 90 tablet^Rfl: 3 fluticasone (FLONASE) 50 mcg/actuation nasal spray^Use 1 Ilfeld in each nostril once daily.^Disp: 16mL^Rfl: 5 (Patient taking differently: Use 1 Ilfeld in each nostril once daily as needed for cold/allergy symptoms.) levalbuterol tartrate HFA (XOPENEX HFA) 45 mcg/actuation inhaler^Inhale 1-2 Puffs as instructed every 4 hours as needed for wheezing/shortness of breath.^Disp: 15 g^Rfl: 11 doxazosin (CARDURA) 4 mg tablet^Take 1 tablet by mouth once daily.^Disp: 90 tablet^Rfl: 3 lisinopril (ZESTRIL) 20 mg tablet^Take 1 tablet by mouth once daily.^Disp: 90 tablet^Rfl: 3 metoprolol succinate ER (TOPROL XL) 25 mg 24 hr tablet^Take 1 tablet by mouth twice daily.^Disp: 180 tablet^Rfl: 3 blood sugar diagnostic (ACCU-CHEK GUIDE TEST STRIPS) test strip^Use as instructed^Disp: 100 Strip^Rfl: 3 Lancing Device with Lancets (ACCU-CHEK MULTICLIX LANCET)^1 Each once daily.^Disp: 100 Each^Rfl: 3 Blood Glucose Control High and Low (ACCU-CHEK GUIDE L1-L2 CTRL HAYDE) soln^1 Each as needed.^Disp: 1 Each^Rfl: 3 metFORMIN ER (GLUCOPHAGE XR) 500 mg 24 hr tablet^TAKE 2 TABLETS BY MOUTH TWICE DAILY BEFORE MEALS.^Disp: 360 tablet^Rfl: 3 Lancets lancets^Test blood sugar(s) once times daily. Dx: Type 2 DM - Controlled E11.9 Insulin: No^Disp: 100 Each^Rfl: 11 pnyfsvvpabl-rcjapogkz-gursjbtu (TRELEGY ELLIPTA) 200-62.5-25 mcg inhalation powder^Inhale 1 Puff asinstructed once daily.^Disp: 180 Each^Rfl: 3 apixaban (ELIQUIS) 5 mg tab(s)^Take 1 tablet by mouth twice daily.^Disp: 180 tablet^Rfl: 3 pravastatin (PRAVACHOL) 40 mg tablet^Take 1 tablet by mouth daily at bedtime.^Disp: 90 tablet^Rfl: 3 CPAP^AutoPAP 12-20 cmH2O, nasal mask, humidity, filters. Lifetime supplies. Dx: 327.23. Fax compliance rpt to [facility] in 6 weeks.^Disp: 1 Each^Rfl: 1 magnesium oxide (MAG-OXIDE ORAL)^Take 400 mg by mouth once daily.^Disp: ^Rfl: BIOTIN ORAL^Take by mouth.^Disp: ^Rfl: COQ10, LIPOSOMAL UBIQUINOL, ORAL^Take by mouth once daily. Take for two weeks then restart statin.^Disp: ^Rfl: multivitamins w-minerals/lut(CENTRUM SILVER TAB)^Take one(1) tablet daily.^Disp: ^Rfl: 0 ASPIRIN 81 MG TAB^Take by mouth once daily.^Disp: ^Rfl: 0 Social History Tobacco Use Smoking status: Never Smokeless tobacco: Never Tobacco comments: No one in household smokes. Vaping Use Vaping Use: Never used Substance Use Topics Alcohol use: Yes Alcohol/week: 2.5 - 5.0 standard drinks of alcohol Types: 1 - 2 Cans of Beer (12oz) per week Comment: once every 2 weeks Drug use: No Family History Problem Relation Age of Onset Colon Cancer Mother Hypertension Mother Cancer Father Prostate Hypertension Father Colon Cancer Sister Breast Cancer Sister PAST SURGICAL HISTORY Procedure Laterality Date ADENOIDECTOMY PRIMARY <AGE 14 Adenoidectomy CARDIOVERSION June 2021 CATARACT EXTRACTION HX Bilateral COLONOSCOPY FLX DX W/COLLJ SPEC WHEN PFRMD 12/21/2002 Colonoscopy COLONOSCOPY FLX DX W/COLLJ SPEC WHEN PFRMD 05/08/2007 Colonoscopy COLONOSCOPY FLX DX W/COLLJ SPEC WHEN PFRMD 06/05/2010 COLONOSCOPY FLX DX W/COLLJ SPEC WHEN PFRMD 09/07/2013 Repeat 4 years for screening COLONOSCOPY FLX DX W/COLLJ SPEC WHEN PFRMD 11/11/2017 Colonoscopy ESOPHAGOGASTRODUODENOSCOPY TRANSORAL DIAGNOSTIC 05/08/2007 EGD PAST SURGICAL HISTORY OF anal fissurectomy PAST SURGICAL HISTORY OF 2019 cyst removed behind left ear REMV CATARACT EXTRACAP,INSERT LENS SIGMOIDOSCOPY FLX DX W/COLLJ SPEC BR/WA IF PFRMD 08/01/2004 Sigmoidoscopy TONSILLECTOMY PRIMARY/SECONDARY <AGE 14 Tonsillectomy I reviewed the past medical history, family history, social history and surgical history with changes noted above and updated in EMR. IMMUNIZATIONS Prevnar - 02/03/2016, 09/04/2014, 06/26/2004 Pneumovax 23 - 02/03/2016, 09/04/2014, 06/26/2014 Influenza - 06/14/2022 COVID-19 - 06/20/2022, 12/11/2021, 06/27/2021, 11/08/2020, 10/11/2020 ROS: General: No fevers, chills or night sweats. Appetite good. No unintended weight loss. Eyes, Ears, nose, throat: No post nasal drip, rhinorrhea, purulent nasal discharge, epistaxis. No hoarseness. Vision stable. Cardiac: No angina, edema, orthopnea. Resp: See HPI. GI: No heartburn, dysphagia. Musculoskeletal: No pain. Neuro: No headache, focal weakness, tremor. Skin: No rash. Otherwise negative. PHYSICAL EXAMINATION: BP (P) 120/82 Pulse (!) (P) 57 Resp (P) 17 Wt 108 kg (238 lb) SpO2 (P) 95% BMI 35.15 kg/m Gen: No acute distress. Cooperative with examination. HEENT: Normocephalic. Sclera, conjunctiva clear. Oral hygeine and dentition good. No thrush. Resp: No stridor, accessory respiratory muscle use, supra-sternal or intercostal retractions. No wheezes, crackles. CV: Regular rythm. Heart tones normal. Radial pulses normal. Abd: Non distended. MSK: No kyphoscoliosis. Ext: Warm and well perfused. No clubbing, cyanosis. Trace bilateral edema. Skin: No rash, ecchymoses. Neuro: Mental status normal. Affect normal. No tremor. DATA: IMPRESSION: Spirometry shows no obstruction.The reduced FVC suggests restriction. Recommend lung volumes if clinically indicated. Electronically Signed On 04-02-2022 16:21:29 EDT by Alexa Chino MD Exhaled nitric oxide (Dipesh), 03/06/2023: 23 (normal < 20). Test Date Oral Exhaled Nitric Oxide (ppb) 11/15/2022 44.0 (A) 09/17/2022 24.0 05/03/2022 34.0 04/02/2022 68.0 (A) 09/17/2019 6.0 ASSESSMENT/PLAN: 1. Moderate persistent asthma without complication - ICD9: 493.90, ICD10: J45.40 (primary diagnosis) Improved nitric oxide today. Continue Trelegy Ellipta daily. Rinse mouth after each use to help prevent oral thrush. Xopenex HFA inhaler, 2 inhalations 10-15 minutes prior to activities associated with shortness of breath, and as needed for rescue relief of shortness of breath or wheezing, up to 4 times daily. - NITRIC OXIDE, EXHALED 2. Allergy, subsequent encounter - ICD9: V58.89, ICD10: T78.40XD Flonase daily. OTC antihistamine as needed. Dust mite precautions. Portions of this documentation were copied and pasted from previous office visit notes in order to provide a cohesive continuity of the history. The note has been reviewed and edited and updated as necessary. Alice Holt PA-C documented in this encounterOhiohealth [facility]ady [facility]06-30-2023 NoteSam[facility] Hospital06-30-2023 Instructions* Patient Instructions* Navin Herbert PA-C - 02/22/2023 11:24 AM EDT documented in this encounterOhiohealth Grady [facility] Hospital06-30-2023 History of Present illness Narrative* Navin Herbert PA-C - 02/22/2023 11:07 AM EDT Images from the original note were not included. Chief complaint: Kidney stones Bill Reynoso is a 77 year old male who presents today for kidney stone management and prevention counseling. Interval hx 05/04/22 Patient was referred by Dr. Tyler, who is following for complex renal cyst(s), due to bilateral renal stones that have been noted on various imaging studies. He does not recall having any stone passage, although the measurements appear to be smaller than previously. Patient currently: no fever, no chills, no nausea, no vomiting, no gross hematuria, and no renal colic Plan was: - Reviewed US scan(s) - bilateral renal stones, nonobstructing. - Discussed surgical and nonsurgical management options, including ESWL, URS, and observation. - Patient chooses to proceed with observation. - Patient is interested in dietary analysis from 24 hour urine test. Litholink kit ordered and willbe sent to house. Interval hx 07/20/22 Patient returns to clinic with , having completed 24-hour urine collection. - Emphasis on increasing fluid intake, decreasing sodium, decreasing animal flesh proteins, and decreasing high-oxalate foods and eat alongside calcium-rich foods - New Litholink, US and KUB in about 6 months to monitor Interval hx February 22, 2023 Patient returns to clinic having completed new Litholink and KUB/US demonstrating only small right kidney stone (left does not appear to be present). He has unintentionally been decreasing his sodiumintake. There is no height or weight on file to calculate BMI. 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 Elevated prostate specific antigen (PSA) 11/22/2014 Family history of malignant neoplasm of gastrointestinal tract History of tear of ACL (anterior cruciate ligament) 1989 right knee Internal hemorrhoids without mention of complication Mitral valve disorders(424.0) Obstructive sleep apnea CPAP Other symptoms involving digestive system(787.99) Personal history of colonic polyps Colon polyps Snoring Unspecified essential hypertension PAST SURGICAL HISTORY Procedure Laterality Date ADENOIDECTOMY PRIMARY <AGE 14 Adenoidectomy CARDIOVERSION June 2021 CATARACT EXTRACTION HX Bilateral COLONOSCOPY FLX DX W/COLLJ SPEC WHEN PFRMD 12/21/2002 Colonoscopy COLONOSCOPY FLX DX W/COLLJ SPEC WHEN PFRMD 05/08/2007 Colonoscopy COLONOSCOPY FLX DX W/COLLJ SPEC WHEN PFRMD 06/05/2010 COLONOSCOPY FLX DX W/COLLJ SPEC WHEN PFRMD 09/07/2013 Repeat 4 years for screening COLONOSCOPY FLX DX W/COLLJ SPEC WHEN PFRMD 11/11/2017 Colonoscopy ESOPHAGOGASTRODUODENOSCOPY TRANSORAL DIAGNOSTIC 05/08/2007 EGD PAST SURGICAL HISTORY OF anal fissurectomy PAST SURGICAL HISTORY OF 2019 cyst removed behind left ear REMV CATARACT EXTRACAP,INSERT LENS SIGMOIDOSCOPY FLX DX W/COLLJ SPEC BR/WA IF PFRMD 08/01/2004 Sigmoidoscopy TONSILLECTOMY PRIMARY/SECONDARY <AGE 14 Tonsillectomy Family History Problem Relation Age of Onset Colon Cancer Mother Hypertension Mother Cancer Father Prostate Hypertension Father Colon Cancer Sister Breast Cancer Sister Social History Tobacco Use Smoking status: Never Smokeless tobacco: Never Tobacco comments: No one in household smokes. Vaping Use Vaping Use: Never used Substance Use Topics Alcohol use: Yes Alcohol/week: 2.5 - 5.0 standard drinks Types: 1 - 2 Cans of Beer (12oz) per week Comment: once every 2 weeks Drug use: No Current Outpatient Medications on File Prior to Visit Medication Sig pantoprazole DR (PROTONIX) 40 mg tablet Take 1 tablet by mouth twice daily. flecainide (TAMBOCOR) 100 mg tablet TAKE ONE TABLET BY MOUTH TWICE DAILY sucralfate (CARAFATE) 1 gram tablet Take 1 g by mouth twice daily. tamsulosin (FLOMAX) 0.4 mg TAKE 2 CAPSULES BY MOUTH EVERY DAY 1/2 HOUR AFTER SAME MEAL EVERY DAY- MAXIMUM 0.8MG DAILY finasteride (PROSCAR) 5 mg tablet Take 1 tablet by mouth once daily. amLODIPine (NORVASC) 5 mg tablet Take 1 tablet by mouth once daily. fluticasone (FLONASE) 50 mcg/actuation nasal spray Use 1 Ilfeld in each nostril once daily. (Patienttaking differently: Use 1 Ilfeld in each nostril once daily as needed for cold/allergy symptoms.) levalbuterol tartrate HFA (XOPENEX HFA) 45 mcg/actuation inhaler Inhale 1-2 Puffs as instructed every 4 hours as needed for wheezing/shortness of breath. doxazosin (CARDURA) 4 mg tablet Take 1 tablet by mouth once daily. lisinopril (ZESTRIL) 20 mg tablet Take 1 tablet by mouth once daily. metoprolol succinate ER (TOPROL XL) 25 mg 24 hr tablet Take 1 tablet by mouth twice daily. blood sugar diagnostic (ACCU-CHEK GUIDE TEST STRIPS) test strip Use as instructed Lancing Device with Lancets (ACCU-CHEK MULTICLIX LANCET) 1 Each once daily. Blood Glucose Control High and Low (ACCU-CHEK GUIDE L1-L2 CTRL HAYDE) soln 1 Each as needed. Lancets lancets Test blood sugar(s) once times daily. Dx: Type 2 DM - Controlled E11.9 Insulin: No uujiikmtvju-qakwtgsnu-jxcsspxs (TRELEGY ELLIPTA) 200-62.5-25 mcg inhalation powder Inhale 1 Puff asinstructed once daily. apixaban (ELIQUIS) 5 mg tab(s) Take 1 tablet by mouth twice daily. pravastatin (PRAVACHOL) 40 mg tablet Take 1 tablet by mouth daily at bedtime. CPAP AutoPAP 12-20 cmH2O, nasal mask, humidity, filters. Lifetime supplies. Dx: 327.23. Fax compliance rpt to [facility] in 6 weeks. magnesium oxide (MAG-OXIDE ORAL) Take 400 mg by mouth once daily. BIOTIN ORAL Take by mouth. COQ10, LIPOSOMAL UBIQUINOL, ORAL Take by mouth once daily. Take for two weeks then restart statin. multivitamins w-minerals/lut(CENTRUM SILVER TAB) Take one(1) tablet daily. ASPIRIN 81 MG TAB Take by mouth once daily. metFORMIN ER (GLUCOPHAGE XR) 500 mg 24 hr tablet TAKE 2 TABLETS BY MOUTH TWICE DAILY BEFORE MEALS. Current Facility-Administered Medications on File Prior to Visit Medication perflutren lipid microspheres 1.3 mL in NaCl (PF) 0.9% 10 mL injection (DEFINITY) sodium chloride 0.9 % (flush) 10 mL (BD POSIFLUSH) ALLERGIES Allergen Reactions Adhesive Rash Dust Mites Naprosyn [Naproxen] GI Upset Appointment on 12/31/2022 Component Date Value Ref Range Status Hemoglobin A1C 12/31/2022 6.9 (A) 4.3 - 5.6 % Final [place] Diabetes Association guidelines indicate that patients with HgbA1c in the range 5.7-6.4% are at increased risk for development of diabetes, and intervention by lifestyle modification may be beneficial. HgbA1c greater or equal to 6.5% is considered diagnostic of diabetes. Estimated Average Glucose 12/31/2022 151 mg/dL Final eAG: (Estimated average glucose) is a calculated value from HgbA1c and is outside industrial sales representative of the average blood glucose level in the last 2-3 month period. Glucose 12/31/2022 127 (A) 74 - 99 mg/dL Final The [place] Diabetes Association (ADA) provides guidance for cutoff values for fasting glucose andrandom glucose. The ADA defines fasting as no caloric intake for at least 8 hours. Fasting plasma glucose results between 100 to 125 mg/dL indicate increased risk for diabetes (prediabetes). Fasting plasma glucose results greater than or equal to 126 mg/dL meet the criteria for diagnosis of diabetes. In the absence of unequivocal hyperglycemia, results should be confirmed by repeat testing. In a patient with classic symptoms of hyperglycemia or hyperglycemic crisis, random plasma glucose results greater than or equal to 200 mg/dL meet the criteria for diagnosis of diabetes. Reference: Standards of Medical Care in Diabetes 2016, [place] Diabetes Association. Diabetes Care. 2016.39(Suppl 1). BUN 12/31/2022 22 9 - 24 mg/dL Final Creatinine 12/31/2022 1.23 (A) 0.73 - 1.22 mg/dL Final Sodium 12/31/2022 143 136 - 144 mmol/L Final Potassium 12/31/2022 4.2 3.7 - 5.1 mmol/L Final Chloride 12/31/2022 104 97 - 105 mmol/L Final CO2 12/31/2022 29 22 - 30 mmol/L Final Anion Gap 12/31/2022 10 9 - 18 mmol/L Final Calcium, Total 12/31/2022 10.1 8.5 - 10.2 mg/dL Final Estimated Glomerular Filtration Ra* 12/31/2022 61 >=60 mL/min/1.73m Final Estimated Glomerular Filtration Rate (eGFR) is calculated using the 2020 CKD-EPI creatinine equation. This equation utilizes serum creatinine, sex, and age as parameters. The creatinine assay has traceable calibration to isotope dilution- mass spectrometry. Refer to KDIGO guidelines for clinical interpretation. In patients with unstable renal function, e.g. those with acute kidney injury, the eGFRmay not accurately reflect actual GFR. PSA 12/31/2022 0.83 <2.60 ng/mL Final Total PSA test methodology used is the Electrochemiluminescence Immunoassay by [employer]. Total PSA values by differing methodologies cannot be interchanged. Images: US 01/08/23: Right Kidney: -Renal length: 10.7 cm -Parenchyma: Normal echogenicity and thickness. -Collecting system: No hydronephrosis. -Calculus: 4 mm upper pole calculus -Lesion: Multiple cysts are again seen. This includes simple cysts measuring up to 3.1 cm upper pole and a mildly complex partially calcified cystic lesion measuring up to 1.6 cm which appears similar to prior study. Left Kidney: -Renal length: 11.4 cm -Parenchyma: Normal echogenicity and thickness. -Collecting system: No hydronephrosis. -Calculus: None -Lesion: Multiple cystic lesions are again seen. Simple cyst measures up to 2.6 cm RIGHT upper pole and mildly complex cyst measuring up to 1.1 cm with associated calcification is similar to prior study. Bladder: Mild diffuse urinary bladder wall thickening. 62 cc prevoid volume and 38 cc post void volume. The prostate gland is enlarged. Stone Panel/ [facility]: Assessment/Plan: N20.0 Nephrolithiasis (primary encounter diagnosis) R34 Urine volume deficient R82.992 Hyperoxaluria E72.9 Aciduria (HCC) - Emphasis on increasing fluid intake, increasing dietary citrus, decreasing high-oxalate foods andpair with calcium-rich foods, and maintaining lower sodium intake - New US and in about 1 year Reviewed recent 24 hour urine study and discussed strategies for stone prevention. Low urine volume - Recommend increasing your fluid intake to 2.5-3 L/day or 80- 100 fluid oz/day. Not only increase fluids during the day but also drink 1-2 glasses of water before bed, get up at least once through the night to urinate, and then drink another glass of water before returning to sleep. Hyperoxaluria - Recommend a low oxalate diet, adding calcium rich foods at each meal and add a vitamin B6 50-100 mg supplement daily. General stone prevention guidelines: Fluid intake - #1 reason why people form stones - not enough fluid! Recommend increasing water/fluid intake (2.5-3 L/day or 80-100 fluid oz/day), including nighttime hydration. We recommend emptying your bladder and drinking 1-2 glasses of water prior to bed, then getting up at least once during the night to empty your bladder again and drinking 1 more glass of water before returning to bed. All fluids count but water is best. [place] intake - Recommend increasing dietary citrate intake. Adding more fruits & vegetables toyour diet; in particular citrus fruits (anna/limes/lemonade/melons/tomatoes). One can add 4 oz oflemon juice diluted in 32 oz of water daily to start. If diet changes are too difficult we can presc ribe a medication, potassium citrate, that can help increase your citrate levels. Sodium intake - Recommend a low sodium diet <2000mg/d. Read food labels, choose low sodium options, avoid canned, frozen or boxed meals, eat more fresh foods, and possibly add a fish oil supplement daily (2000mg/d) Calcium intake - Recommend 2-3 servings of calcium per day. Not advisable for stone patients to restrict calcium intake as it is very important for good bone, muscle, and tissue health. Decrease soft drinks (has phosphoric acid). Protein intake: about 1 g of protein per kilo body weight per day. Patients with high urine oxalate: avoid spinach, nuts, seeds, potatoes. Foods like banana, avocado,soybean, addie, cereals are good for you. Drink enough fluids each day. If you are not producing enough urine, your health care provider will recommend you drink at least 3 liters of liquid each day. This equals about 3 quarts (about ten 10-ounce glasses). This is a great way to lower your risk of forming new stones. Remember to drink more to replace fluids lost when you sweat from exercise or in hot weather. All fluids count toward your fluid intake. But it's best to drink mostly no-calorie or low-calorie drinks. This may mean limiting sugar-sweetened or alcoholicdrinks. Knowing how much you drink during the day can help you understand how much you need to drink to produce 2.5 liters of urine. Use a household measuring cup to measure how much liquid you drink for a day or two. Drink from bottles or cans with the fluid ounces listed on the label. Keep a log, and addup the ounces at the end of the day or 24-hour period. Use this total to be sure you are reaching your daily target urine amount of at least 85 ounces (2.5 liters) of urine daily. Health care providers recommend people who form cystine stones drink more liquid than other stone formers. Usually 4 liters of liquid is advised to reduce cystine levels in your urine. Reduce the amount of salt in your diet. This tip is for people with high sodium intake and high urine calcium or cystine. Sodium can cause both urine calcium and cystine to be too high. Your health care provider may advise you to avoid foods that have a lot of salt. The Centers for Disease Control (CDC) and other health groups advise noteating more than 2,300 mg of salt per day. The following foods are high in salt and should be eatenin moderation: Cheese (all types) Most frozen foods and meats, including salty cured meats, deli meats (cold cuts), hot dogs, bratwurst and sausages Canned soups and vegetables Breads, bagels, rolls and baked goods Salty snacks, like chips and pretzels Bottled salad dressings and certain breakfast cereals Pickles and olives Casseroles, other mixed foods, pizza and lasagna Canned and bottled sauces Certain condiments, table salt and some spice blends Eat the recommended amount of calcium. If you take calcium supplements, make sure you aren't getting too much calcium. On the other hand make sure you aren't getting too little calcium either. Talk with your health care provider or dietitian about whether you need supplements. Good sources of calcium to choose from often are those low in salt. Eating calcium-rich foods or beverages with meals every day is a good habit. There are many non-dairy sources of calcium, such as calcium-fortified non-dairy milks. There are good choices, especially if you avoid dairy. You can usually get enough calcium from your diet without supplements if you eat [id number] servings of calcium-rich food. Many foods and beverages have calcium in them. Some foods and beverages that might be easy to include on a daily basis with meals are: Table of Foods Rich in Calcium Eat plenty of fruits and vegetables. Eating at least five servings of fruits and vegetables daily is recommended for all people who formkidney stones. Eating fruits and vegetables give you potassium, fiber, magnesium, antioxidants, phytate and citrate, all of which may help keep stones from forming. A serving means one piece of fruit or one potato or one cup of raw vegetables. For cooked vegetables, a serving is cup. If you are worried you may not be eating the right amount of fruits and vegetables, talk to your health care provider about what will be best for you. Eat foods with low oxalate levels. This recommendation is for patients with high urine oxalate. Eating calcium-rich foods (see table above) with meals can often control the oxalate level in your urine. Urinary oxalate is controlled because eating calcium lowers the oxalate level in your body. But if doing that does not control your urine oxalate, you may be asked to eat less of certain high-oxalate foods. Nearly all plant foods have oxalate, but a few foods contain a lot of it. These include spinach, rhubarb and almonds. It is usually not necessary to completely stop eating foods that contain oxalate. This needs to be determined individually and depends on why your oxalate levels are high in the first place. Eat less meat. If you make cystine or calcium oxalate stones and your urine uric acid is high, your health care provider may tell you to eat less animal protein. If your health care provider thinks your diet is increasing your risk for stones, he or she will tell you to eat less meat, fish, seafood, poultry, pork, briscoe, mutton and game meat than you eat now. This might mean eating these foods once or twice rather than two or three times a day, fewer times during the week, or eating smaller portions when you do eat them. The amount to limit depends on how much you eat now and how much your diet is affecting your uric acid levels. https://www.urologyhealth.org/urology-a-z/k/kidney-stones#Prevention%20of%20Futu re%20Stones RTC in 12 months w/ new and US. I spent a total of 20 minutes on the date of the service which included preparing to see the patient, [id number] patient care, completing clinical documentation, obtaining and/or reviewing separately obtained history, counseling and educating the patient/family/caregiver, ordering medications, dash ts, or procedures, and communicating results to the patient/family/caregiver. Navin Herbert PA-C documented in this encounterOhio[facility]29-[facility] History of Present illness Narrative* Little Cadet, RT(R) - 02/21/2023 10:00 AM EDT Radiology Service Progress Note PATIENT NAME: Bill Reynoso DATE OF SERVICE: February 21, 2023 TIME: 10:28 AM PATIENT IDENTITY VERIFICATION COMPLETED USING TWO (2) IDENTIFIERS: Name and Date of confirmedby patient verbally. FALL SCREENING: Has the patient had 2 falls in the last year or 1 fall with injury or currently using an Ambulatory Assistive Device (Walker, Cane, Wheelchair, Crutches, etc.)? No PATIENT GENDER DATA: Male PATIENT RELEVANT IMPLANT DATA REVIEWED: Not Applicable RADIOLOGY DEPARTMENT: General X-ray: Exam(s) Completed: Abdomen X-Ray: Abdomen with Obliques PERIPHERAL IV DATA: Not applicable SIGNED BY: RT Olvin(R) February 21, 2023 10:28 AM documented in this encounterOhiohealth [facility]06-05-2023 Note[facility]06-05-2023 Instructions* Patient Instructions* Carli Hilton MD - 01/28/2023 1:24 PM EDT We are increasing the Flecainide to 100 mg two times per day documented in this encounterOhiohealth [facility]06-05-2023 History of Present illness Narrative* Carli Hilton MD - 01/28/2023 1:00 PM EDT Images from the original note were not included. [facility] CARDIOLOGY Cardiology ([facility]) [address] [id number] OUTPATIENT VISIT DATE 01/28/2023 PRIMARY CARE PHYSICIAN: JO WOODS MD [address] [place] [address] HISTORY OF PRESENT ILLNESS: Mr. Reynoso is a 76 year old gentleman with a history of paroxysmal atrial fibrillation, hypertension, dyslipidemia, diabetes (wkd-jzeeoii-jocmryvut), obstructive sleep apnea and chronic kidney disease with a baseline creatinine 1.6 who is here for follow-up. He was seen at [facility] [place] in October for recurrent atrial flutter. He underwent cardioversion in the emergency room. He wasdischarged home. Since then, he has not had recurrent episodes of A- fib or flutter. He has mild shortness of breath on exertion which is unchanged from prior. He has not had symptoms concerning for CHF including PND, orthopnea, or lower extremity edema. He has had no further palpitations, lightheadedness, dizziness, or syncope. 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 Elevated prostate specific antigen (PSA) 11/22/2014 Family history of malignant neoplasm of gastrointestinal tract History of tear of ACL (anterior cruciate ligament) 1989 right knee Internal hemorrhoids without mention of complication Mitral valve disorders(424.0) Obstructive sleep apnea CPAP Other symptoms involving digestive system(787.99) Personal history of colonic polyps Colon polyps Snoring Unspecified essential hypertension PAST SURGICAL HISTORY Procedure Laterality Date ADENOIDECTOMY PRIMARY <AGE 14 Adenoidectomy CARDIOVERSION June 2021 CATARACT EXTRACTION HX Bilateral COLONOSCOPY FLX DX W/COLLJ SPEC WHEN PFRMD 12/21/2002 Colonoscopy COLONOSCOPY FLX DX W/COLLJ SPEC WHEN PFRMD 05/08/2007 Colonoscopy COLONOSCOPY FLX DX W/COLLJ SPEC WHEN PFRMD 06/05/2010 COLONOSCOPY FLX DX W/COLLJ SPEC WHEN PFRMD 09/07/2013 Repeat 4 years for screening COLONOSCOPY FLX DX W/COLLJ SPEC WHEN PFRMD 11/11/2017 Colonoscopy ESOPHAGOGASTRODUODENOSCOPY TRANSORAL DIAGNOSTIC 05/08/2007 EGD PAST SURGICAL HISTORY OF anal fissurectomy PAST SURGICAL HISTORY OF 2019 cyst removed behind left ear REMV CATARACT EXTRACAP,INSERT LENS SIGMOIDOSCOPY FLX DX W/COLLJ SPEC BR/WA IF PFRMD 08/01/2004 Sigmoidoscopy TONSILLECTOMY PRIMARY/SECONDARY <AGE 14 Tonsillectomy SOCIAL HISTORY Social History Tobacco Use Smoking status: Never Smokeless tobacco: Never Tobacco comments: No one in household smokes. Vaping Use Vaping Use: Never used Substance Use Topics Alcohol use: Yes Alcohol/week: 2.5 - 5.0 standard drinks Types: 1 - 2 Cans of Beer (12oz) per week Comment: once every 2 weeks Drug use: No FAMILY HISTORY Problem Relation Age of Onset Colon Cancer Mother Hypertension Mother Cancer Father Prostate Hypertension Father Colon Cancer Sister Breast Cancer Sister ALLERGIES: ALLERGIES Allergen Reactions Adhesive Rash Dust Mites Naprosyn [Naproxen] GI Upset MEDICATIONS: sucralfate (CARAFATE) 1 gram tablet^Take 1 g by mouth twice daily.^Disp: ^Rfl: tamsulosin (FLOMAX) 0.4 mg^TAKE 2 CAPSULES BY MOUTH EVERY DAY 1/2 HOUR AFTER SAME MEAL EVERY DAY- MAXIMUM 0.8MG DAILY^Disp: 180 capsule^Rfl: 3 finasteride (PROSCAR) 5 mg tablet^Take 1 tablet by mouth once daily.^Disp: 90 tablet^Rfl: [address] (PROTONIX) 40 mg tablet^Take 1 tablet by mouth once daily.^Disp: 180 tablet^Rfl: 3 (Patient taking differently: Take 40 mg by mouth twice daily.) amLODIPine (NORVASC) 5 mg tablet^Take 1 tablet by mouth once daily.^Disp: 90 tablet^Rfl: 3 fluticasone (FLONASE) 50 mcg/actuation nasal spray^Use 1 [place] in each nostril once daily.^Disp: 16mL^Rfl: 5 levalbuterol tartrate HFA (XOPENEX HFA) 45 mcg/actuation inhaler^Inhale 1-2 Puffs as instructed every 4 hours as needed for wheezing/shortness of breath.^Disp: 15 g^Rfl: 11 doxazosin (CARDURA) 4 mg tablet^Take 1 tablet by mouth once daily.^Disp: 90 tablet^Rfl: 3 lisinopril (ZESTRIL) 20 mg tablet^Take 1 tablet by mouth once daily.^Disp: 90 tablet^Rfl: 3 metoprolol succinate ER (TOPROL XL) 25 mg 24 hr tablet^Take 1 tablet by mouth twice daily.^Disp: 180 tablet^Rfl: 3 blood sugar diagnostic (ACCU-CHEK GUIDE TEST STRIPS) test strip^Use as instructed^Disp: 100 Strip^Rfl: 3 Lancing Device with Lancets (ACCU-CHEK MULTICLIX LANCET)^1 Each once daily.^Disp: 100 Each^Rfl: 3 Blood Glucose Control High and Low (ACCU-CHEK GUIDE L1-L2 CTRL HAYDE) soln^1 Each as needed.^Disp: 1 Each^Rfl: 3 metFORMIN ER (GLUCOPHAGE XR) 500 mg 24 hr tablet^TAKE 2 TABLETS BY MOUTH TWICE DAILY BEFORE MEALS.^Disp: 360 tablet^Rfl: 3 Lancets lancets^Test blood sugar(s) once times daily. Dx: Type 2 DM - Controlled E11.9 Insulin: No^Disp: 100 Each^Rfl: 11 wypsdqeykar-kwrputths-ooorcblw (TRELEGY ELLIPTA) 200-62.5-25 mcg inhalation powder^Inhale 1 Puff asinstructed once daily.^Disp: 180 Each^Rfl: 3 apixaban (ELIQUIS) 5 mg tab(s)^Take 1 tablet by mouth twice daily.^Disp: 180 tablet^Rfl: 3 flecainide (TAMBOCOR) 100 mg tablet^TAKE 1/2 TABLET BY MOUTH TWICE DAILY^Disp: 90 tablet^Rfl: 3 pravastatin (PRAVACHOL) 40 mg tablet^Take 1 tablet by mouth daily at bedtime.^Disp: 90 tablet^Rfl: 3 CPAP^AutoPAP 12-20 cmH2O, nasal mask, humidity, filters. Lifetime supplies. Dx: 327.23. Fax compliance rpt to [facility] in 6 weeks.^Disp: 1 Each^Rfl: 1 magnesium oxide (MAG-OXIDE ORAL)^Take 400 mg by mouth twice daily.^Disp: ^Rfl: BIOTIN ORAL^Take by mouth.^Disp: ^Rfl: COQ10, LIPOSOMAL UBIQUINOL, ORAL^Take by mouth once daily. Take for two weeks then restart statin.^Disp: ^Rfl: multivitamins w-minerals/lut(CENTRUM SILVER TAB)^Take one(1) tablet daily.^Disp: ^Rfl: 0 ASPIRIN 81 MG TAB^Take by mouth once daily.^Disp: ^Rfl: 0 REVIEW OF SYSTEMS: Review of Systems Constitutional: Negative for chills, fever, malaise/fatigue and weight loss. HENT: Negative for hearing loss and sore throat. Eyes: Negative for blurred vision and double vision. Respiratory: Negative. Cardiovascular: Negative. Gastrointestinal: Negative. Genitourinary: Negative for dysuria, frequency, hematuria and urgency. Musculoskeletal: Negative. Skin: Negative. Neurological: Negative for dizziness, seizures, loss of consciousness, weakness and headaches. Endo/Heme/Allergies: Negative for environmental allergies. Does not bruise/bleed easily. Psychiatric/Behavioral: Negative for depression. PHYSICAL EXAMINATION: BP 122/68 (BP Site: Right Arm, BP Position: Sitting, BP Cuff Size: Regular Adult) Pulse 60 Wt 108.4 kg (239 lb) SpO2 94% BMI 35.29 kg/m General: Pleasant gentleman sitting appears comfortable and in no apparent distress. HEENT: Carotid upstrokes are brisk bilateral without bruits. No JVD appreciated. Pulmonary: Lungs are clear no rales, wheezes, rhonchi. Cardiovascular: Normal S1-S2 with a regular rate and rhythm. No murmurs, rubs, or gallops appreciated. Extremities: Warm, well-perfused, 1-2+ nonpitting edema lower extremities bilaterally CARDIOVASCULAR MEDICINE TESTING: Treadmill Myoview Stress 09/12/20 STRESS ECG SUMMARY: The patient's resting heart rate was 71 bpm and blood pressure was 160/92 mmHg. The patient exercised according to the Modified Mo protocol. Total exercise time was 14 minutes and 50 seconds. The maximum heart rate was 133 bpm, which is 90%predicted for age. METs achieved was 10.4. The double product achieved was [address]. Peak heart rate was 133 bpm and peak blood pressure was 180/98 mmHg. CONCLUSIONS: 1. SPECT Perfusion Study: Normal. 2. There is no scintigraphic evidence for inducible ischemia. 3. No evidence of scarred myocardium. 4. Left ventricle is normal in size. The left ventricle systolic function is normal. 5. Right ventricle is normal in size. 6. This is a low risk scan. Gated Stress FBP LVEF % 58 Zio Patch Monitor 08/29/20-09/12/20 Preliminary Findings Patient had a min HR of 43 bpm, max HR of 174 bpm, and avg HR of 56 bpm. Predominant underlying rhythm was Sinus Rhythm. 31 Supraventricular Tachycardiaruns occurred, the run with the fastest interval lasting 13 beats with a max rate of174 bpm, the longest lasting 20 beats with an avg rate of 112 bpm. Some episodesof Supraventricular Tachycardia may be possible Atrial Ta chycardia with variableblock. Idioventricular Rhythm was present. Isolated SVEs were rare (<1.0%), SVECouplets were rare (<1.0%), and SVE Triplets were rare (<1.0%). Isolated VEs wereoccasional (3.3%, [id number]), VE Couplets were rare (<1.0%, 2532), and VE Triplets were rare (<1.0%, 16). Ventricular Bigeminy and Trigeminy were present. Echocardiogram 04/05/2022: - Technically difficult exam due to body habitus. - Exam indication: Shortness of Breath - The left ventricle is normal in size. Left ventricular systolic function is normal. EF = 65 5% (2D biplane) Grade I left ventricular diastolic dysfunction. - The right ventricle is normal in size. Right ventricular systolic function is normal. - The left atrial cavity is moderately dilated. - There are no significant valvular abnormalities. - The visualized aorta is dilated with a maximal dimension of 4.1 cm. - Exam was compared with the prior CC echocardiographic exam performed on 04/26/2017. Echocardiogram 04/26/17: CONCLUSIONS: - Technically difficult exam due to body habitus. - Exam indication: Atrial fibrillation - The left ventricle is normal in size. There is moderate concentric left ventricular hypertrophy. Left ventricular systolic function is normal. EF = 60 5% (visual est.) Grade I left ventricular diastolic dysfunction. - The right ventricle is normal in size. Right ventricular systolic function is normal. - The left atrial cavity is moderately dilated. - Mild MR - Moderate AV sclerosis. - Exam was compared with the prior CC echocardiographic exam performed on 04/19/2015 (Stress). No significant change. IMPRESSION: Mr. Reynoso is a 77 year old gentleman with a history of paroxysmal atrial fibrillation who has been maintained on flecainide for many years. Recent episode of breakthrough atrial fibrillation likely secondary to his noncompliance with CPAP. He is also treated for hypertension and dyslipidemia. He presents to the office for earlier follow-up due to the development of lower extremity edema on increased dose of amlodipine only. PLAN AND RECOMMENDATIONS: 1. PAF (paroxysmal atrial fibrillation) ([facility]) - ICD9: 427.31, ICD10: I48.0 (primary diagnosis) Patient had followed with electrophysiology in the past, Dr Conroy. He would like to go to the [facility] for repeat evaluation. Consultation was placed. In the meantime, I have increased his flecainide to 100 mg twice daily. Side effects were reviewed with the patient. He is maintained on Eliquis for stroke risk reduction. - FLECAINIDE 100 MG TABLET - CONSULT TO ELECTROPHYSIOLOGY 2. Essential hypertension - ICD9: 401.9, ICD10: I10 Improved control on current regimen. 3. Hyperlipidemia, unspecified hyperlipidemia type - ICD9: 272.4, ICD10: E78.5 Maintained on pravastatin 40 mg daily. Repeat fasting blood work has been ordered. 4. PVC (premature ventricular contraction) - ICD9: 427.69, ICD10: I49.3 Carli Hilton MD documented in this encounterOhiohealth [facility]05-24-2023 [facility]05-24-2023 [facility]05-16-2023 Note[facility]05-16-2023 History of Present illness Narrative* Cornelia Edwards RDMS - 01/08/2023 11:30 AM EDT Radiology Service Progress Note PATIENT NAME: Bill Reynoso DATE OF SERVICE: January 08, 2023 TIME: 1:12 PM PATIENT IDENTITY VERIFICATION COMPLETED USING TWO (2) IDENTIFIERS: Name and Date of confirmedby patient verbally. FALL SCREENING: Has the patient had 2 falls in the last year or 1 fall with injury or currently using an Ambulatory Assistive Device (Walker, Cane, Wheelchair, Crutches, etc.)? No PATIENT GENDER DATA: Male PATIENT RELEVANT IMPLANT DATA REVIEWED: Not Applicable RADIOLOGY DEPARTMENT: Ultrasound PERIPHERAL IV DATA: Not applicable SIGNED BY: Cornelia Edwadrs RDMS January 08, 2023 1:12 PM documented in this encounterOhiohealth [facility]-10-[facility]23 [facility] History of Present illness Narrative* Leihgann Carmichael, LELAND.HABILITATIVE INTERVENTIONIST - 01/02/2023 2:03 PM EDT CC: Patient presents with: Recheck: 3 month DM follow up HPI Bill Reynoso is a 77 year old male who presents today for diabetic follow up. DIABETES MELLITUS: Mr. Reynoso denies excessive thirst or increased frequency of urination, chestpain or dyspnea , numbness, tingling or pain in extremities, new or unusual visual symptoms, low sugar/hypoglycemic reactions, weight loss/gain, lightheadedness/dizziness, and bowel changes/loose stools. Follows a diabetic diet generally not very much. He is compliant with medication(s) and is tolerating med(s) without any side effects. He reports checking his glucose on a once a day schedule with sugars in the fasting 90s-140s range. Patient's last HgA1C was Hemoglobin A1C (%) Date Value 12/31/2022 6.9 09/17/2022 7.2 03/21/2021 6.9 09/29/2020 6.9 Hemoglobin A1C (POCT) (%) Date Value 09/22/2021 6.6 ) Last Ophthalmology exam was within the past 12 months. Has an appointment with retina specialist next month HTN and A-fib: Mr. Reynoso indicates that he is feeling well and denies any symptoms referable toelevated blood pressure. Specifically denies headache, chest pain, palpitations, dyspnea, and peripheral edema. Patient denies any side effects of his medication(s) and is compliant with their regimen. He does check BP's away from this office with average BP's in the 130s-160s/70s-80s range. Billworks out regularly 7 times per week with walking. He watches his diet for sodium, low fat and low cholesterol generally not very much. Last 3 Encounter BP Readings: Date: BP: 01/02/2023 130/72 120/76 11/15/2022 148/90 10/31/2022 142/71 Sees cardiology in a few weeks for routine follow up. Last cardioversion was in october. REVIEW OF SYSTEMS General: no fevers, no chills, no night sweats, no recurrent infections, no change in appetite, no change in energy, and no significant changes in weight Respiratory: no cough, no wheezing, no shortness of breath, no hemoptysis Cardiovascular: no chest pain, no chest pressure, no palpitations, and no swelling Endocrine: no polyuria, no polyphagia, and no polydipsia Neurologic: No headache, weakness, dizziness, memory loss, syncope. 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 Elevated prostate specific antigen (PSA) 11/22/2014 Family history of malignant neoplasm of gastrointestinal tract History of tear of ACL (anterior cruciate ligament) 1989 right knee Internal hemorrhoids without mention of complication Mitral valve disorders(424.0) Obstructive sleep apnea CPAP Other symptoms involving digestive system(787.99) Personal history of colonic polyps Colon polyps Snoring Unspecified essential hypertension PAST SURGICAL HISTORY Procedure Laterality Date ADENOIDECTOMY PRIMARY <AGE 14 Adenoidectomy CARDIOVERSION June 2021 CATARACT EXTRACTION HX Bilateral COLONOSCOPY FLX DX W/COLLJ SPEC WHEN PFRMD 12/21/2002 Colonoscopy COLONOSCOPY FLX DX W/COLLJ SPEC WHEN PFRMD 05/08/2007 Colonoscopy COLONOSCOPY FLX DX W/COLLJ SPEC WHEN PFRMD 06/05/2010 COLONOSCOPY FLX DX W/COLLJ SPEC WHEN PFRMD 09/07/2013 Repeat 4 years for screening COLONOSCOPY FLX DX W/COLLJ SPEC WHEN PFRMD 11/11/2017 Colonoscopy ESOPHAGOGASTRODUODENOSCOPY TRANSORAL DIAGNOSTIC 05/08/2007 EGD PAST SURGICAL HISTORY OF anal fissurectomy PAST SURGICAL HISTORY OF 2019 cyst removed behind left ear REMV CATARACT EXTRACAP,INSERT LENS SIGMOIDOSCOPY FLX DX W/COLLJ SPEC BR/WA IF PFRMD 08/01/2004 Sigmoidoscopy TONSILLECTOMY PRIMARY/SECONDARY <AGE 14 Tonsillectomy ALLERGIES Adhesive, Dust Mites, and Naprosyn [Naproxen] MEDICATIONS amLODIPine (NORVASC) 5 mg tablet^Take 1 tablet by mouth once daily.^Disp: 90 tablet^Rfl: 3 fluticasone (FLONASE) 50 mcg/actuation nasal spray^Use 1 Ilfeld in each nostril once daily.^Disp: 16mL^Rfl: 5 levalbuterol tartrate HFA (XOPENEX HFA) 45 mcg/actuation inhaler^Inhale 1-2 Puffs as instructed every 4 hours as needed for wheezing/shortness of breath.^Disp: 15 g^Rfl: 11 lisinopril (ZESTRIL) 20 mg tablet^Take 1 tablet by mouth once daily.^Disp: 90 tablet^Rfl: 3 metoprolol succinate ER (TOPROL XL) 25 mg 24 hr tablet^Take 1 tablet by mouth twice daily.^Disp: 180 tablet^Rfl: 3 metFORMIN ER (GLUCOPHAGE XR) 500 mg 24 hr tablet^TAKE 2 TABLETS BY MOUTH TWICE DAILY BEFORE MEALS.^Disp: 360 tablet^Rfl: 3 qevxjtbadyq-xbiedsorh-qfjoqllc (TRELEGY ELLIPTA) 200-62.5-25 mcg inhalation powder^Inhale 1 Puff asinstructed once daily.^Disp: 180 Each^Rfl: [address] (PROTONIX) 40 mg tablet^Take 40 mg by mouth once daily.^Disp: ^Rfl: apixaban (ELIQUIS) 5 mg tab(s)^Take 1 tablet by mouth twice daily.^Disp: 180 tablet^Rfl: 3 flecainide (TAMBOCOR) 100 mg tablet^TAKE 1/2 TABLET BY MOUTH TWICE DAILY^Disp: 90 tablet^Rfl: 3 pravastatin (PRAVACHOL) 40 mg tablet^Take 1 tablet by mouth daily at bedtime.^Disp: 90 tablet^Rfl: 3 tamsulosin (FLOMAX) 0.4 mg^TAKE 2 CAPSULES BY MOUTH EVERY DAY 1/2 HOUR AFTER SAME MEAL EVERY DAY- MAXIMUM 0.8MG DAILY^Disp: 60 capsule^Rfl: 11 finasteride (PROSCAR) 5 mg tablet^Take 1 tablet by mouth once daily.^Disp: 90 tablet^Rfl: 3 magnesium oxide (MAG-OXIDE ORAL)^Take 400 mg by mouth twice daily.^Disp: ^Rfl: BIOTIN ORAL^Take by mouth.^Disp: ^Rfl: COQ10, LIPOSOMAL UBIQUINOL, ORAL^Take by mouth once daily. Take for two weeks then restart statin.^Disp: ^Rfl: multivitamins w-minerals/lut(CENTRUM SILVER TAB)^Take one(1) tablet daily.^Disp: ^Rfl: 0 ASPIRIN 81 MG TAB^Take by mouth once daily.^Disp: ^Rfl: 0 doxazosin (CARDURA) 4 mg tablet^Take 1 tablet by mouth once daily.^Disp: 90 tablet^Rfl: 3 blood sugar diagnostic (ACCU-CHEK GUIDE TEST STRIPS) test strip^Use as instructed^Disp: 100 Strip^Rfl: 3 Lancing Device with Lancets (ACCU-CHEK MULTICLIX LANCET)^1 Each once daily.^Disp: 100 Each^Rfl: 3 Blood Glucose Control High and Low (ACCU-CHEK GUIDE L1-L2 CTRL HAYDE) soln^1 Each as needed.^Disp: 1 Each^Rfl: 3 Lancets lancets^Test blood sugar(s) once times daily. Dx: Type 2 DM - Controlled E11.9 Insulin: No^Disp: 100 Each^Rfl: 11 CPAP^AutoPAP 12-20 cmH2O, nasal mask, humidity, filters. Lifetime supplies. Dx: 327.23. Fax compliance rpt to [facility] in 6 weeks.^Disp: 1 Each^Rfl: 1 FAMILY HISTORY Problem Relation Age of Onset Colon Cancer Mother Hypertension Mother Cancer Father Prostate Hypertension Father Colon Cancer Sister Breast Cancer Sister Social History Tobacco Use Smoking status: Never Smokeless tobacco: Never Tobacco comments: No one in household smokes. Vaping Use Vaping Use: Never used Substance Use Topics Alcohol use: Yes Alcohol/week: 2.5 - 5.0 standard drinks Types: 1 - 2 Cans of Beer (12oz) per week Comment: once every 2 weeks Drug use: No PHYSICAL EXAM BP 120/76 Pulse (!) 56 Resp 16 Wt 108.9 kg (240 lb) BMI 35.44 kg/m General Appearance: well appearing, in no acute distress, alert Skin: Skin color, texture, turgor normal for age; Eyes: conjunctiva pink and moist, no icterus, sclera white, non-injected Neck: Thyroid normal size and symmetric without palpable nodules, Neck supple, No adenopathy Lymph nodes: No cervical lymphadenopathy and No supraclavicular lymphadenopathy Lungs: Lungs clear to auscultation. No wheezing, rhonchi, rales. Heart: RRR without murmur, gallop, or rubs. No ectopy Health maintenance reviewed with patient: BP CONTROLLED (<130/80) due on 09/06/2021 DEPRESSION ASSESSMENT Never done SHINGRIX VACCINE(2 of 3) due on 03/21/2023 DILATED RETINAL EXAM due on 02/23/2023 URINE ALBUMIN:CREATININE RATIO due on 03/14/2023 DIABETIC FOOT EXAM due on 03/21/2023 LDL CHOLESTEROL due on 03/27/2023 HBA1C due on 07/03/2023 ANNUAL PCP TEAM CHRONIC DISEASE VISIT due on 10/03/2023 SERUM CREATININE due on 01/01/2024 DTAP,TDAP,TD(2 - Td or Tdap) due on 10/14/2026 COLORECTAL CANCER SCREENING due on 12/22/2027 SPIROMETRY Completed INFLUENZA Completed ADVANCE DIRECTIVE DISCUSSION Completed HEPATITIS C SCREENING Completed COVID-19 VACCINE Completed PNEUMOCOCCAL: 65+ Completed DATA REVIEWED: Most recent labs ASSESSMENT/PLAN: 1. Type 2 diabetes mellitus with stage 3a chronic kidney disease, without long- term current use of insulin (HCC) - ICD9: 250.40, 585.3, ICD10: E11.22, N18.31 (primary diagnosis) - Controlled - Continue current medications - Counseled on healthy diet and regular exercise - Discussed need for and benefit of weight loss. BMI 35.44 kg/(m^2) [facility] - eGFR: Stable - Counseled on avoiding regular use of NSAIDs, adequate hydration, potential risk of IV dye - Recommend maintaining blood pressure under 130/80 - Labs ordered: - COMP METABOLIC PANEL - CBC + DIFF - HGB A1C 2. Stage 3a chronic kidney disease (HCC) - ICD9: 585.3, ICD10: N18.31 As above - COMP METABOLIC PANEL - CBC + DIFF 3. Essential hypertension - ICD9: 401.9, ICD10: I10 - good control - Continue current medication(s) - Encouraged dietary sodium restriction/DASH diet - Recommended regular aerobic exercise. - Recommend home blood pressure monitoring, to bring results in on next visit - Goal of BP <130/80 - COMP METABOLIC PANEL - CBC + DIFF - follow up in 6 months 4. PAF (paroxysmal atrial fibrillation) (HCC) - ICD9: 427.31, ICD10: I48.0 - controlled at this time. Regular rhythm in visit - on eliquis for DVT prophylaxis and metoprolol for rate control - continue with current medications and treatment as ordered by cardiology 5. Hyperlipidemia, unspecified hyperlipidemia type - ICD9: 272.4, ICD10: E78.5 - to be determined upon return of lab results - Continue current medication. - Encouraged following a low fat, low cholesterol diet. - Discussed the benefits of regular aerobic exercise and weight loss. - LIPID PANEL BASIC - COMP METABOLIC PANEL Prescription instructions reviewed with patient as applicable. Potential red flag symptoms discussed with the patient. Reviewed appropriate action plan to take if red flag symptoms occur. Patient agreeable to treatment plan. Leighann Carmichael APRN.CNP documented in this encounterOhio[facility]05-10-2023 Evaluation note* Diagnosis Type 2 diabetes mellitus with stage 3a chronic kidney disease, without long-term current use of insulin (HCC)- Primary Stage 3a chronic kidney disease (HCC) Essential hypertension Unspecified essential hypertension PAF (paroxysmal atrial fibrillation) (HCC) Atrial fibrillation Hyperlipidemia, unspecified hyperlipidemia type documented in this encounter [facility]05-04-2023 [facility]05-04-2023 History of Present illness Narrative* Naveed Tyler MD - 12/27/2022 9:00 AM EDT 12/27/22 77 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, 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67, M, [place], [place], 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 Pt had pancreatitis, had imaging, CT showed pancreatitis resolved MRI 04/07: 1.3 hemorrhagic cyst R upper pole, B2F, 1.2 cm B2F, hemorrhagic cyst upper pole on L too I reviwed and cysts are complex but not susp RCC, agree with B2f Voids well on flomax, Afib (no AC), HTN, DM, Mitral valve hypertrophy, sleep apnea, anal fistula, CAD On LD ASA, COPD UA negative WE advised bmp and dedicated renal CT in 6 mo 11/06: CT with 1 cm B2 lesions in each kidney, no change, I reviewed agreed, we see in 12 mo with US Will stay on flomax, PCP follows for psa, cult neg 12/06: nocturia, we will soon to check PVR, consider adding proscar 01/06: apparently US shows mass R upper pole up to 2 cm, we see with CT in February or April 01: SCr 1.43, eGFR 49, CT all stable, B2 cysts, we see in 12 mo with bmp and US 11/07: CXR neg, US all stable, no change cysts, psa 1.32 12/09: US all stable or improved, no susp lesions, SCr 1.38, eGFR 51, psa 1.64, shelley fine, we see 2 yrs with PSA and SHELLEY 10/12: mild orchalgia, US testes neg, althouh B varicoceles, will Rx NSAI, RTC 2 yrs with US kidneysand psa 02/10, doing well, no testicular pain, shelley fine, psa 1.69, US neg 09/14: psa 1.91, shelley fine, UA neg, some LUTS, will go to flomax 0.8, we will see 12 mo with psa and US 08/14: US with mildly complex cysts, min change, 09/29/20 US fine 01/13: psa 1.79, 23% free, US 10/16, fine, all stable, increased LUTS, we put on proscar, shelley fine, PVR 8 cc Now on proscar and flomax BID, we see 12 mo with psa, reassess LUTS then 01/14, on proscar and flomax 0.8, SHELLEY fine, UA fine, PVR 78, RTC 12 mo with psa and US 03/16: US fine, some calcified cysts in kidneys and some stones in kidney, to see endourol team Hx LUTs, on proscar and flomax, hx stones kidney, hx cyst in kidney (B2f) For followup, probably should consider PSA The above represents a brief summary of the patient's history as of the last clinic visit or hospitalization. Interim history: Recent radiographic studies: none recent Recent labs: none recent Clinical status: had cardioverson for a-fib in 06/2022 and 10/2022, on Eliquis Voiding status and ROS: has LUTS, on Flomax and Proscar, notes slow stream, and intermittent stream, patient states that symptoms have worsened over the past two months, no gross hematuria Reason for today's visit: follow up ASSESSMENT & PLAN I saw and examined in detail, and discussed with MS, and agree with essential components of Hx, PE and A/P. Briefly, This is a 77 year old male who presented today in the clinic for follow up of: Hx LUTs, on proscar and flomax, hx stones kidney, hx cyst in kidney (B2f) BPH symptoms have worsened over the last two months. On proscar and Flomax. UA pending. Last PSA 9 months ago was 0.74, stable. SHELLEY today fine Needs US for history of B2f, Scr stable at 1.26 Also, history of stones, no recent episodes or flares, follows with our stones team Plan: I spent a total of 25 minutes on the date of the service which included preparing to see the patient, [id number] patient care, completing clinical documentation, performing a medically appropriate examination, and counseling and educating the patient/family/caregiver. Check PVR, this was 64 cc Check PSA today, to have done soon ,shelley delvin Needs US for further assessment of kidney cyst Advised continue follow up with stones team Advised to see our BPH team, Alexander Gill, etc, might need to consider MIS turp RTC with me 6 mo with psa too Naveed Tyler MD DATA REVIEW LABS Creatinine Date Value Ref Range Status 09/17/2022 1.26 (H) 0.73 - 1.22 mg/dL Final 03/27/2022 1.29 (H) 0.73 - 1.22 mg/dL Final 09/18/2021 1.29 (H) 0.73 - 1.22 mg/dL Final 09/02/2020 1.25 (H) 0.73 - 1.22 mg/dL Final PSA (ng/mL) Date Value 03/27/2022 0.74 12/29/2020 1.79 09/24/2019 1.91 02/19/2018 1.69 12/08/2015 1.64 PSA Screening (ng/mL) Date Value 03/14/2022 1.03 PAST MEDICAL HISTORY/COMORBIDITIES 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 Elevated prostate specific antigen (PSA) 11/22/2014 Family history of malignant neoplasm of gastrointestinal tract History of tear of ACL (anterior cruciate ligament) 1989 right knee Internal hemorrhoids without mention of complication Mitral valve disorders(424.0) Obstructive sleep apnea CPAP Other symptoms involving digestive system(787.99) Personal history of colonic polyps Colon polyps Snoring Unspecified essential hypertension PAST SURGICAL HISTORY Procedure Laterality Date ADENOIDECTOMY PRIMARY <AGE 14 Adenoidectomy CARDIOVERSION June 2021 CATARACT EXTRACTION HX Bilateral COLONOSCOPY FLX DX W/COLLJ SPEC WHEN PFRMD 12/21/2002 Colonoscopy COLONOSCOPY FLX DX W/COLLJ SPEC WHEN PFRMD 05/08/2007 Colonoscopy COLONOSCOPY FLX DX W/COLLJ SPEC WHEN PFRMD 06/05/2010 COLONOSCOPY FLX DX W/COLLJ SPEC WHEN PFRMD 09/07/2013 Repeat 4 years for screening COLONOSCOPY FLX DX W/COLLJ SPEC WHEN PFRMD 11/11/2017 Colonoscopy ESOPHAGOGASTRODUODENOSCOPY TRANSORAL DIAGNOSTIC 05/08/2007 EGD PAST SURGICAL HISTORY OF anal fissurectomy PAST SURGICAL HISTORY OF 2019 cyst removed behind left ear REMV CATARACT EXTRACAP,INSERT LENS SIGMOIDOSCOPY FLX DX W/COLLJ SPEC BR/WA IF PFRMD 08/01/2004 Sigmoidoscopy TONSILLECTOMY PRIMARY/SECONDARY <AGE 14 Tonsillectomy No changes. REVIEW OF SYSTEMS CONSTITUTIONAL: No fevers, chills, nightsweats, unintended weight loss GI: No dysphagia/odynophagia, problematic reflux, constipation, diarrhea, changes in stool habits, hematochezia, melena. : see HPI INTEGUMENTARY: No new skin changes (rash, new or changing mole, new growth) All other systems were reviewed and are negative. PHYSICAL EXAM General: Well appearing, alert, in no acute distress, well-hydrated, well nourished ENT: Moist mucous membranes. Cardiovascular: Well perfused Respiratory: No respiratory distress Abdomen: Non-distended Skin: Skin color, texture, turgor normal, no suspicious rashes or lesions Neurological: Normal speech. Extremities: Extremities normal. No deformities, edema, or skin discoloration SHELLEY: no nodules, no firmness, no asymmetry Scribe Attestation: By signing my name below, Nasima Schmidt, attest that this documentation has been prepared under thedirection and in the presence of Dr. Naveed Tyler MD. Electronically Signed:malia Harris, December 27, 2022 9:02 AM Provider Attestation: Naveed Schmidt MD, personally performed the services described in this documentation. All medical record entries made by the pradipibe were at my direction and in my presence. I have reviewed thechart and discharge instructions (if applicable) and agree that the record reflects my personal perf ormance and is accurate and complete. Naveed Tyler MD December 27, 2022 9:31 AM documented in this encounterOhiohealth [facility]04-14-2023 Miscellaneous Notes* Telephone Encounter - Dafne Lam PEREZ - 12/07/2022 12:30 PM EDT Patient phones requesting refills as follows: Requested Prescriptions Pending Prescriptions Disp Refills fluticasone (FLONASE) 50 mcg/actuation nasal spray 16 mL 5 Sig: Use 1 Ilfeld in each nostril once daily. Please review and advise. Dafne Fritz LPN documented in this encounterOhiohealth [facility]03-23-2023 [facility]-2023 [facility]-2023 [facility]03-23-2023 History of Present illness Narrative* Alice Holt PA-C - 11/15/2022 1:30 PM EDT Patient: Bill Reynoso PCP: Jo Woods MD CC: asthma HPI: Bill Reynoso 77 year old obese male non-smoker with PMH significant for AF, CAD, BROCK on CPAP, HLD, GERD, DM, HTN and asthma. Was evaluated by Dr. Marie, allergy, and allergy skin testing positive for dust mites. Dust mite precautions instituted in home. Current therapy with Trelegy 200 and as needed Xopenex. Discontinued Singulair- patient did not notice improvement in symptoms. Continues with Flonase nasal spray and OTC antihistamines. Has had intermittent eosinophilia. Most recent outside CBC with diff showed normal eosinophil count at 3.9%. Today, patient reports he has been feeling well. Claims to be consistently compliant with prescribed maintenance Rx Trelegy. Rarely requires rescue bronchodilator use. Morning cough productive of goetz sputum. No hemoptysis. Occasional epistaxis. No chest pain. No nocturnal awakenings. Frequent wheezing after walking dog. Walks dog about 5 blocks every night. No dyspnea. Lower extremity edema, stable. Concerned with high dose steroids. Has central cirrous of left eye, which has worsened. Consistently wearing CPAP with all sleep. 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 Elevated prostate specific antigen (PSA) 11/22/2014 Family history of malignant neoplasm of gastrointestinal tract History of tear of ACL (anterior cruciate ligament) 1989 right knee Internal hemorrhoids without mention of complication Mitral valve disorders(424.0) Obstructive sleep apnea CPAP Other symptoms involving digestive system(787.99) Personal history of colonic polyps Colon polyps Snoring Unspecified essential hypertension Allergies: Adhesive Rash Dust Mites Naprosyn [Naproxen] GI Upset doxazosin (CARDURA) 4 mg tablet^Take 1 tablet by mouth once daily.^Disp: 90 tablet^Rfl: 3 lisinopril (ZESTRIL, PRINIVIL) 20 mg tablet^Take 1 tablet by mouth once daily.^Disp: 90 tablet^Rfl:3 metoprolol succinate ER (TOPROL XL) 25 mg 24 hr tablet^Take 1 tablet by mouth twice daily.^Disp: 180 tablet^Rfl: 3 blood sugar diagnostic (ACCU-CHEK GUIDE TEST STRIPS) test strip^Use as instructed^Disp: 100 Strip^Rfl: 3 Lancing Device with Lancets (ACCU-CHEK MULTICLIX LANCET)^1 Each once daily.^Disp: 100 Each^Rfl: 3 Blood Glucose Control High and Low (ACCU-CHEK GUIDE L1-L2 CTRL HAYDE) soln^1 Each as needed.^Disp: 1 Each^Rfl: 3 metFORMIN ER (GLUCOPHAGE XR) 500 mg 24 hr tablet^TAKE 2 TABLETS BY MOUTH TWICE DAILY BEFORE MEALS.^Disp: 360 tablet^Rfl: 3 Lancets lancets^Test blood sugar(s) once times daily. Dx: Type 2 DM - Controlled E11.9 Insulin: No^Disp: 100 Each^Rfl: 11 jcikwhejola-xriuyeqoh-smnatwbj (TRELEGY ELLIPTA) 200-62.5-25 mcg inhalation powder^Inhale 1 Puff asinstructed once daily.^Disp: 180 Each^Rfl: [address] (PROTONIX) 40 mg tablet^Take 40 mg by mouth once daily.^Disp: ^Rfl: apixaban (ELIQUIS) 5 mg tab(s)^Take 1 tablet by mouth twice daily.^Disp: 180 tablet^Rfl: 3 flecainide (TAMBOCOR) 100 mg tablet^TAKE 1/2 TABLET BY MOUTH TWICE DAILY^Disp: 90 tablet^Rfl: 3 fluticasone (FLONASE) 50 mcg/actuation nasal spray^SPRAY 1 SPRAY INTO EACH NOSTRIL EVERY DAY^Disp: 16 mL^Rfl: 5 (Patient taking differently: As needed) pravastatin (PRAVACHOL) 40 mg tablet^Take 1 tablet by mouth daily at bedtime.^Disp: 90 tablet^Rfl: 3 levalbuterol tartrate HFA (XOPENEX HFA) 45 mcg/actuation inhaler^Inhale 1-2 Puffs as instructed every 4 hours as needed for wheezing/shortness of breath.^Disp: 1 Inhaler^Rfl: 2 tamsulosin (FLOMAX) 0.4 mg^TAKE 2 CAPSULES BY MOUTH EVERY DAY 1/2 HOUR AFTER SAME MEAL EVERY DAY- MAXIMUM 0.8MG DAILY^Disp: 60 capsule^Rfl: 11 finasteride (PROSCAR) 5 mg tablet^Take 1 tablet by mouth once daily.^Disp: 90 tablet^Rfl: 3 amLODIPine (NORVASC) 5 mg tablet^Take 1 tablet by mouth once daily.^Disp: 90 tablet^Rfl: 3 CPAP^AutoPAP 12-20 cmH2O, nasal mask, humidity, filters. Lifetime supplies. Dx: 327.23. Fax compliance rpt to [facility] in 6 weeks.^Disp: 1 Each^Rfl: 1 magnesium oxide (MAG-OXIDE ORAL)^Take 400 mg by mouth twice daily.^Disp: ^Rfl: BIOTIN ORAL^Take by mouth.^Disp: ^Rfl: COQ10, LIPOSOMAL UBIQUINOL, ORAL^Take by mouth once daily. Take for two weeks then restart statin.^Disp: ^Rfl: multivitamins w-minerals/lut(CENTRUM SILVER TAB)^Take one(1) tablet daily.^Disp: ^Rfl: 0 ASPIRIN 81 MG TAB^Take by mouth once daily.^Disp: ^Rfl: 0 Social History Tobacco Use Smoking status: Never Smokeless tobacco: Never Tobacco comments: No one in household smokes. Vaping Use Vaping Use: Never used Substance Use Topics Alcohol use: Yes Alcohol/week: 2.5 - 5.0 standard drinks Types: 1 - 2 Cans of Beer (12oz) per week Comment: once every 2 weeks Drug use: No Family History Problem Relation Age of Onset Colon Cancer Mother Hypertension Mother Cancer Father Prostate Hypertension Father Colon Cancer Sister Breast Cancer Sister PAST SURGICAL HISTORY Procedure Laterality Date ADENOIDECTOMY PRIMARY <AGE 14 Adenoidectomy CARDIOVERSION June 2021 CATARACT EXTRACTION HX Bilateral COLONOSCOPY FLX DX W/COLLJ SPEC WHEN PFRMD 12/21/2002 Colonoscopy COLONOSCOPY FLX DX W/COLLJ SPEC WHEN PFRMD 05/08/2007 Colonoscopy COLONOSCOPY FLX DX W/COLLJ SPEC WHEN PFRMD 06/05/2010 COLONOSCOPY FLX DX W/COLLJ SPEC WHEN PFRMD 09/07/2013 Repeat 4 years for screening COLONOSCOPY FLX DX W/COLLJ SPEC WHEN PFRMD 11/11/2017 Colonoscopy ESOPHAGOGASTRODUODENOSCOPY TRANSORAL DIAGNOSTIC 05/08/2007 EGD PAST SURGICAL HISTORY OF anal fissurectomy PAST SURGICAL HISTORY OF 2019 cyst removed behind left ear REMV CATARACT EXTRACAP,INSERT LENS SIGMOIDOSCOPY FLX DX W/COLLJ SPEC BR/WA IF PFRMD 08/01/2004 Sigmoidoscopy TONSILLECTOMY PRIMARY/SECONDARY <AGE 14 Tonsillectomy I reviewed the past medical history, family history, social history and surgical history with changes noted above and updated in EMR. IMMUNIZATIONS Prevnar - 02/03/2016, 09/04/2014, 06/26/2004 Pneumovax 23 - 02/03/2016, 09/04/2014, 06/26/2014 Influenza - 06/14/2022 COVID-19 - 06/20/2022, 12/11/2021, 06/27/2021, 11/08/2020, 10/11/2020 ROS: General: Generally feels well. No fevers, chills or night sweats. Appetite good. Eyes, Ears, nose, throat: No post nasal drip, rhinorrhea, purulent nasal discharge, epistaxis. No hoarseness. Vision stable. Cardiac: No angina, edema, orthopnea. Resp: See HPI. GI: No heartburn, dysphagia. Musculoskeletal: No pain. Neuro: No headache, focal weakness, tremor. Skin: No rash. Otherwise negative. PHYSICAL EXAMINATION: BP 148/90 Pulse 65 Resp 15 Wt 108.9 kg (240 lb) SpO2 94% BMI 35.44 kg/m Gen: No acute distress. Cooperative with examination. HEENT: Normocephalic. Sclera, conjunctiva clear. Oral hygeine and dentition good. No thrush. Resp: No stridor, accessory respiratory muscle use, supra-sternal or intercostal retractions. No wheezes, crackles. CV: Regular rythm. Heart tones normal. Radial pulses normal. Abd: Non distended. MSK: No kyphoscoliosis. Ext: Warm and well perfused. No clubbing, cyanosis. Trace bilateral lower extremity edema. Skin: No rash, ecchymoses. Neuro: Mental status normal. Affect normal. No tremor. DATA: Exhaled nitric oxide (Dipesh), 11/15/2022: 44 (normal < 20). Test Date Oral Exhaled Nitric Oxide (ppb) 11/15/2022 44.0 (A) 09/17/2022 24.0 05/03/2022 34.0 04/02/2022 68.0 (A) 09/17/2019 6.0 PFT, 04/02/2022 IMPRESSION: Spirometry shows no obstruction.The reduced FVC suggests restriction. Recommend lung volumes if clinically indicated. Electronically Signed On 04-02-2022 16:21:29 EDT by Alexa Chino MD CXR, 03/27/2022 IMPRESSION: Stable chest. No acute cardiopulmonary process. COMPARISON: Comparison is made to prior chest radiograph dated 04 March 2020, 09 April 2019 and 12 August 2018. RESULT: Lines, tubes, and devices: None. 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 Lingular and bibasilar fibrotic scarring is stable. There is no focal consolidation or acute pleural process. There is no vascular redistribution to suggest pulmonary edema. Cardiomediastinal silhouette: Unchanged cardiomediastinal silhouette with mildly enlarged cardiac silhouette and calcified unfolded descending thoracic aorta. Bones/soft tissues: The bony structures are intact with degenerative change. No bony destructive process noted. Echocardiogram, 04/05/2022 CONCLUSIONS: - Technically difficult exam due to body habitus. - Exam indication: Shortness of Breath - The left ventricle is normal in size. Left ventricular systolic function is normal. EF = 65 5% (2D biplane) Grade I left ventricular diastolic dysfunction. - The right ventricle is normal in size. Right ventricular systolic function is normal. - The left atrial cavity is moderately dilated. - There are no significant valvular abnormalities. - The visualized aorta is dilated with a maximal dimension of 4.1 cm. - Exam was compared with the prior echocardiographic exam performed on 04/26/2017. SSMENT/PLAN: 1. Moderate persistent asthma without complication - ICD9: 493.90, ICD10: J45.40 (primary diagnosis) Symptomatically doing well, however, increased nitric oxide today. Will hold off decreasing maintenance therapy at this time. Xopenex HFA inhaler, 2 inhalations 10-15 minutes prior to activities associated with shortness of breath, and as needed for rescue relief of shortness of breath or wheezing, up to 4 times daily. - LEVALBUTEROL HFA 45 MCG/ACTUATION AEROSOL INHALER - NITRIC OXIDE, EXHALED 2. House dust mite allergy - ICD9: V15.09, ICD10: Z91.09 Patient and are following dust mite precautions. Alice Holt PA-C documented in this encounterOhiohealth [facility]03-23-2023 Procedure note* Megha Black RPLEONCIO - 11/15/2022 1:02 PM EDTAssociated Order(s): NITRIC OXIDE, EXHALED RESPIRATORY THERAPY ORAL EXHALED NITRIC OXIDE SERVICE DATE: 11/15/2022 SERVICE TIME: 1:02 PM Oral Exhaled Nitric Oxide measurement: 44.0 (ppb) (A) Normal: Adult 5-20 ppb, pediatric (<12 years) 5-15 ppb High Normal / Increased: Adult 20-35 ppb, pediatric (<12 years) 15-25 ppb Moderately raised exhaled Nitric Oxide may indicate underlying inflammation, but note that: Cold and influenza can raise exhaled Nitric Oxide and some patients have higher baseline exhaled Nitric Oxide levels than others. High: Adult >35 ppb, pediatric (<12 years) >25 ppb Indicative of ongoing eosinophilic inflammation. Symptomatic patient likely to respond to steroids. Possible causes (if already on steroids): Poor compliance, recent allergen exposure, steroid dose inadequate, and steroid resistance. Note that not all patients with high exhaled nitric oxide levels display symptoms. Oral Exhaled Nitric Oxide measurement (Previous Encounters) Test Date Oral Exhaled Nitric Oxide (ppb) 11/15/2022 44.0 (A) 09/17/2022 24.0 05/03/2022 34.0 04/02/2022 68.0 (A) 09/17/2019 6.0 NAME: GURJIT De La Paz PATIENT NAME: Bill Reynoso DATE: November 15, 2022 TIME: 1:02 PM documented in this encounterOhiohealth Grady [facility]03-23-2023 History of Present illness Narrative* GURJIT De La Paz - 11/15/2022 12:55 PM EDT PULM FUNCTION SMARTBLOCK: Provider: Thuy Valenzuela MD Assisting Tech: GURJIT De La Paz Exhaled Nitric Oxide: 1 documented in this encounterOhiohealth [facility]ady [facility]03-08-2023 [facility] History of Present illness Narrative* Haven Marie MD - 10/31/2022 2:30 PM EST Bill Reynoso is a 76 year old male with a history of allergic rhinitis (dust mites), moderatepersistent asthma, GERD and obstructive sleep apnea on BiPAP who presents for a follow-up visit. His last visit was 08/02/2022. His asthma symptoms have improved significantly since his last visit. He notes cough upon awakeningin the morning. He notes mild wheezing a few days per week. Denies significant chest tightness and shortness of breath. Denies treatment with systemic corticosteroids, ER visits or hospitalizations for respiratory symptoms. He discontinued use of Singulair as he found this medication ineffective. Repeat FeNO was 24 PPB on September 17, 2022. He complains of rhinorrhea worse in the mornings. He has not been using fluticasone nasal spray. He continues Protonix 40 mg daily with good control of his GERD symptoms. Dust mite precautions are in place in the home. Patient is scheduled for a follow-up visit in pulmonary medicine with a repeat FeNO on November 15, 2022. (From initial visit on 06/14/22 This is a consultation requested by Alice Holt PA-C for an allergy and immunology evaluation.My final recommendations will be communicated back to the requesting healthcare provider(s) by way of shared medical record or via [place] mail. Bill Reynoso is a 76 year old male who presents with a few month history of increased nasal and asthma symptoms. He complains of cough productive of yellow-green sputum. Cough is worse upon awakening in the morning. Also complains of wheezing. Some shortness of breath when walking his dog outdoors. Nocturnal awakenings due to respiratory symptoms 1-2 nights in the past month. Using Xopenex 1-2 times per day for acute symptoms. He uses Breo Ellipta 100-25 and Singulair daily. Denies treatment with systemic steroids for respiratory symptoms. No emergency room visits or hospitalizations for respiratory symptoms. Cold temperatures are a trigger to symptoms. C/o sneezing and clear rhinorrhea. Symptoms are perennial. He is using Flonase 1 spray to each nostril at bedtime and Singulair +/- relief. Allergy skin tests completed in this office in 2008 were positive to dust mites on intradermal testing. No prior subcutaneous allergy immunotherapy. On May 03, 2022, FeNO was 34 PPB. Spirometry, FEV1 and FVC were reduced with a normal FEV1/FVCratio. Absolute eosinophil count was 650. IgE was 460. Allergen [place] panel was negative. He has a history of obstructive sleep apnea for which he is on AutoPap. He takes Protonix 40 mg daily with good control of his GERD symptoms. Dust mite precautions are in place in the home. Denies a history of recurring or chronic rhinosinusitis. History of nasal fracture in 1971. No prior nasal or sinus surgery. In 2010, CT sinus showed rightward nasal septal deviation. Paranasal sinuses were clear.) REVIEW OF SYSTEMS: Negative for fevers, chills, night sweats and unintentional weight loss. All other review of systems negative except for those listed above. 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 Elevated prostate specific antigen (PSA) 11/22/2014 Family history of malignant neoplasm of gastrointestinal tract History of tear of ACL (anterior cruciate ligament) 1989 right knee Internal hemorrhoids without mention of complication Mitral valve disorders(424.0) Obstructive sleep apnea CPAP Other symptoms involving digestive system(787.99) Personal history of colonic polyps Colon polyps Snoring Unspecified essential hypertension MEDICATIONS: doxazosin (CARDURA) 4 mg tablet^Take 1 tablet by mouth once daily.^Disp: 90 tablet^Rfl: 3 lisinopril (ZESTRIL, PRINIVIL) 20 mg tablet^Take 1 tablet by mouth once daily.^Disp: 90 tablet^Rfl:3 metoprolol succinate ER (TOPROL XL) 25 mg 24 hr tablet^Take 1 tablet by mouth twice daily.^Disp: 180 tablet^Rfl: 3 blood sugar diagnostic (ACCU-CHEK GUIDE TEST STRIPS) test strip^Use as instructed^Disp: 100 Strip^Rfl: 3 Lancing Device with Lancets (ACCU-CHEK MULTICLIX LANCET)^1 Each once daily.^Disp: 100 Each^Rfl: 3 Blood Glucose Control High and Low (ACCU-CHEK GUIDE L1-L2 CTRL HAYDE) soln^1 Each as needed.^Disp: 1 Each^Rfl: 3 metFORMIN ER (GLUCOPHAGE XR) 500 mg 24 hr tablet^TAKE 2 TABLETS BY MOUTH TWICE DAILY BEFORE MEALS.^Disp: 360 tablet^Rfl: 3 Lancets lancets^Test blood sugar(s) once times daily. Dx: Type 2 DM - Controlled E11.9 Insulin: No^Disp: 100 Each^Rfl: 11 iczlxmzbjar-jgofwpnqv-unwwdzhw (TRELEGY ELLIPTA) 200-62.5-25 mcg inhalation powder^Inhale 1 Puff asinstructed once daily.^Disp: 180 Each^Rfl: [address] (PROTONIX) 40 mg tablet^Take 40 mg by mouth once daily.^Disp: ^Rfl: apixaban (ELIQUIS) 5 mg tab(s)^Take 1 tablet by mouth twice daily.^Disp: 180 tablet^Rfl: 3 flecainide (TAMBOCOR) 100 mg tablet^TAKE 1/2 TABLET BY MOUTH TWICE DAILY^Disp: 90 tablet^Rfl: 3 fluticasone (FLONASE) 50 mcg/actuation nasal spray^SPRAY 1 SPRAY INTO EACH NOSTRIL EVERY DAY^Disp: 16 mL^Rfl: 5 (Patient taking differently: As needed) pravastatin (PRAVACHOL) 40 mg tablet^Take 1 tablet by mouth daily at bedtime.^Disp: 90 tablet^Rfl: 3 levalbuterol tartrate HFA (XOPENEX HFA) 45 mcg/actuation inhaler^Inhale 1-2 Puffs as instructed every 4 hours as needed for wheezing/shortness of breath.^Disp: 1 Inhaler^Rfl: 2 tamsulosin (FLOMAX) 0.4 mg^TAKE 2 CAPSULES BY MOUTH EVERY DAY 1/2 HOUR AFTER SAME MEAL EVERY DAY- MAXIMUM 0.8MG DAILY^Disp: 60 capsule^Rfl: 11 finasteride (PROSCAR) 5 mg tablet^Take 1 tablet by mouth once daily.^Disp: 90 tablet^Rfl: 3 amLODIPine (NORVASC) 5 mg tablet^Take 1 tablet by mouth once daily.^Disp: 90 tablet^Rfl: 3 CPAP^AutoPAP 12-20 cmH2O, nasal mask, humidity, filters. Lifetime supplies. Dx: 314.23. Fax compliance rpt to [place] in 6 weeks.^Disp: 1 Each^Rfl: 1 magnesium oxide (MAG-OXIDE ORAL)^Take 400 mg by mouth twice daily.^Disp: ^Rfl: BIOTIN ORAL^Take by mouth.^Disp: ^Rfl: COQ10, LIPOSOMAL UBIQUINOL, ORAL^Take by mouth once daily. Take for two weeks then restart statin.^Disp: ^Rfl: multivitamins w-minerals/lut(CENTRUM SILVER TAB)^Take one(1) tablet daily.^Disp: ^Rfl: 0 ASPIRIN 81 MG TAB^Take by mouth once daily.^Disp: ^Rfl: 0 ALLERGIES: Allergies As of Date: 10/31/2022 Allergen Noted Reaction ADHESIVE 03/21/2010 Rash DUST MITES 05/04/2009 NAPROSYN [NAPROXEN] 06/04/2005 GI Upset Fully Assessed 10/03/2022 PAST SURGICAL HISTORY Procedure Laterality Date ADENOIDECTOMY PRIMARY <AGE 14 Adenoidectomy CARDIOVERSION June 2021 CATARACT EXTRACTION HX Bilateral COLONOSCOPY FLX DX W/COLLJ SPEC WHEN PFRMD 12/21/2002 Colonoscopy COLONOSCOPY FLX DX W/COLLJ SPEC WHEN PFRMD 05/08/2007 Colonoscopy COLONOSCOPY FLX DX W/COLLJ SPEC WHEN PFRMD 06/05/2010 COLONOSCOPY FLX DX W/COLLJ SPEC WHEN PFRMD 09/07/2013 Repeat 4 years for screening COLONOSCOPY FLX DX W/COLLJ SPEC WHEN PFRMD 11/11/2017 Colonoscopy ESOPHAGOGASTRODUODENOSCOPY TRANSORAL DIAGNOSTIC 05/08/2007 EGD PAST SURGICAL HISTORY OF anal fissurectomy PAST SURGICAL HISTORY OF 2019 cyst removed behind left ear REMV CATARACT EXTRACAP,INSERT LENS SIGMOIDOSCOPY FLX DX W/COLLJ SPEC BR/WA IF PFRMD 08/01/2004 Sigmoidoscopy TONSILLECTOMY PRIMARY/SECONDARY <AGE 14 Tonsillectomy FAMILY HISTORY: Allergic rhinitis:yes: daughter. Asthma: yes: daughter. Eczema: no. Cystic fibrosis: no. Immunodeficiency: no. 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 ENVIRONMENTAL HISTORY: Lives in a house Age of home: 18 months Heating: gas Woodburning fireplace in the home: no Air conditioning: Central air Basement: Dry basement Naomi: Qggp-dt-[id number] carpeting Dust mite controls: Dust mite controls are already in place. Pets in the home: 1 dogs Outdoor animals: There are no outdoor animals Tobacco smoke: No exposure in the home. Physical Exam: GENERAL APPEARANCE:Well appearing, alert, in no acute distress, well-hydrated, well nourished. HEENT: NCAT. EYES: conjunctiva and sclera normal. EARS: External ears normal. Canals clear. TM's normal. NOSE/SINUS: Nares normal. Septum midline. Mucosa normal. No drainage or sinus tenderness. THROAT: no erythema NECK:neck supple, no adenopathy HEART:RRR with normal S1 and S2 ,no murmurs, no gallops, no rubs LUNGS: Clear to auscultation bilaterally, no wheezing, rales or rhonchi EXTREMITIES:Extremities normal, No deformities, No skin discoloration, and No edema SKIN: Skin color, texture, turgor normal. No rashes or lesions. ALLERGY SKIN TESTS on 06/14/22: Negative on prick testing. Positive to dust mites on intradermal testing. ASSESSMENT/PLAN: 1.) Moderate persistent asthma Continue Trelegy Ellipta 200-62.5-25 1 inhalation once a day on a regular basis. Rinse mouth out after use. Continue Xopenex HFA inhaler with spacer 2 puffs every 4 hours as needed Continue to follow-up with pulmonary medicine. 2.) Allergic Rhinitis Aggressive environmental controls Dust mite precautions have been instituted in the home. Recommend that he use fluticasone nasal spray 1 to 2 sprays each nostril once daily on a regular basis. The patient may also take gsve-gvu-idkxuem loratidine (Claritin) 10 mg, cetirizine (Zyrtec) 10 mg, levocetirizine (xyzal) 5 mg OR fexofenadine (Leah) 180 mg once daily as needed for itching, sneezing or runny nose. 3.) Discussed medication dosage, usage, side effects, and goals of treatment in detail. 4.) Follow-up in PRN - patient will return sooner should new symptoms or problems arise. Haven Marie MD documented in this encounterOhiohealth [facility]03-08-2023 Nurse Note* Brittany Degroot RN - 10/31/2022 2:16 PM EST Patient using Trelegy inhaler Patient using xopenex about once a week. Has occasional wheezing when going outside in cold. Had Dipesh 09-17-22 with pulmonary. He has been using flonase. documented in this encounterOhiohealth [facility]02-14-2023 History of Present illness Narrative* Mimi Carson MA - 10/09/2022 10:58 AM EST POPULATION HEALTH NAVIGATION OUTREACH Action/FYI NO ANSWER MYCHART ANNUAL MEDICARE WELLNESS BP CONTROLLED (<130/80) due on 09/06/2021 COLORECTAL CANCER SCREENING due on 11/11/2022 Patient Identified by Name and : NO Outreach Outcome/Action Unable to reach patient: Phone number not valid / voicemail full [place] [employer] message sent Did you use a PCP flex slot to schedule this appointment? N/A Reason for Outreach Care Gap or Scheduling/Wellness visits Payer: Payor: MEDICARE / Plan: MEDICARE A AND B / Product Type: Medicare / Care Gap Reviewed:: Annual Wellness visit Controlling Blood Pressure Colorectal Cancer Screening Reminder: Reminder note to check Health Maintenance for items below Health Maintenance items due: BP CONTROLLED (<130/80) due on 09/06/2021 DEPRESSION ASSESSMENT Never done COLORECTAL CANCER SCREENING due on 11/11/2022 Navigation Signature: Mimi Carson MA October 09, 2022 10:58 AM documented in this encounterOhiohealth [facility]01-23-2023 Miscellaneous Notes* Telephone Encounter - Giselle Gomez LPN - 09/17/2022 7:34 PM EST Patient has been identified by name and date of : Yes Patient phones for refill(s): Requested Prescriptions Pending Prescriptions Disp Refills metFORMIN ER (GLUCOPHAGE XR) 500 mg 24 hr tablet 360 tablet 3 Sig: TAKE 2 TABLETS BY MOUTH TWICE DAILY BEFORE MEALS. Date of last office visit in primary care: 06/28/2022 6 month follow-up: 09/21/2022 Last 2 Encounter Wt Readings: Date: Wt: 09/17/2022 109.3 kg (241 lb) 09/07/2022 112.4 kg (247 lb 12.8 oz) Previous labs/tests for medication: Diabetes: Hemoglobin A1C (%) Date Value 03/14/2022 6.9 03/21/2021 6.9 09/29/2020 6.9 Hemoglobin A1C (POCT) (%) Date Value 09/22/2021 6.6 Please advise. Thank you. Giselle Gomez LPN documented in this encounterOhiohealth [facility]ady [facility]01-23-2023 Procedure note* GURJIT De La Paz - 09/17/2022 2:39 PM ESTAssociated Order(s): NITRIC OXIDE, EXHALED RESPIRATORY THERAPY ORAL EXHALED NITRIC OXIDE SERVICE DATE: 09/17/2022 SERVICE TIME: 2:39 PM Oral Exhaled Nitric Oxide measurement: 24.0 (ppb) Normal: Adult 5-20 ppb, pediatric (<12 years) 5-15 ppb High Normal / Increased: Adult 20-35 ppb, pediatric (<12 years) 15-25 ppb Moderately raised exhaled Nitric Oxide may indicate underlying inflammation, but note that: Cold and influenza can raise exhaled Nitric Oxide and some patients have higher baseline exhaled Nitric Oxide levels than others. High: Adult >35 ppb, pediatric (<12 years) >25 ppb Indicative of ongoing eosinophilic inflammation. Symptomatic patient likely to respond to steroids. Possible causes (if already on steroids): Poor compliance, recent allergen exposure, steroid dose inadequate, and steroid resistance. Note that not all patients with high exhaled nitric oxide levels display symptoms. Oral Exhaled Nitric Oxide measurement (Previous Encounters) Test Date Oral Exhaled Nitric Oxide (ppb) 09/17/2022 24.0 05/03/2022 34.0 04/02/2022 68.0 (A) 09/17/2019 6.0 NAME: GURJIT De La Paz PATIENT NAME: Bill Reynoso DATE: September 17, 2022 TIME: 2:39 PM documented in this encounterOhiohealth [facility]ady [facility]01-23-2023 History of Present illness Narrative* GURJIT De La Paz - 09/17/2022 2:38 PM EST PULM FUNCTION SMARTBLOCK: Provider: Thuy Valenzuela MD Assisting Tech: GURJIT De La Paz Exhaled Nitric Oxide: 1 documented in this encounterOhiohealth Grady [facility]01-23-2023 History of Present illness Narrative* Thuy Valenzuela MD - 09/17/2022 2:15 PM EST Images from the original note were not included. . Respiratory [place] Note Patient name: Bill Reynoso PCP: Jo Woods MD CC: Asthma HPI: Bill Reynoso 76 year old obese male non-smoker with PMH significant for AF, CAD, BROCK on CPAP, HLD, HTN and asthma, former patient of Dr. Nolasco, new to me. Current therapy with Trelegy Ellipta , albuterol as needed and Flonase nasal spray. At [facility] with OMEGA, started Singulair and orderedallergy evaluation. Negative rxn to common inhalants and common environmental allergens. Dr. Marie increased dose of Breo Ellipta to 200 ug, and continued Singulair. Still using albuterol several times a day so took a burst of steroids which completely resolved his symptoms and was well for 6 weeks.At [facility] with adz worker, changed inhaled therapy to Trelegy Ellipta and Singulair discontinued. He con tinues to have intermittent SCHAEFER and wheezing. No cough, chest pain or sputum production. No nocturnal awakenings due to asthma. Using his rescue inhaler 2-3 times a week. No obvious trigger for his asthma. Concerned about use of oral and high dose inhaled steroids since visual problem has worsened,central cirrous of left eye. Exhaled nitric oxide is better today. Recent outside CBC with differential showed normal eosinophil count at 3.9%. DATA: SERVICE DATE: 09/17/2022 SERVICE TIME: 2:39 PM Oral Exhaled Nitric Oxide measurement: 24.0 (ppb) SERVICE DATE: 05/03/2022 SERVICE TIME: 10:09 AM Oral Exhaled Nitric Oxide measurement: 34.0 (ppb) Labs: Component Ref Range & Units 4 mo ago IgE <114.0 kU/l 460.0 High Component Ref Range & Units 4 mo ago (05/03/22) Abs Eosin <0.46 k/uL 0.65 High ALLERGENS Control Negative 50%Glycerin/50%Cocas W = 0 mm F = 0 mm Cat Hair 10,000 BAU/ml W = 0 mm F = 0 mm Dog Epithelia 1:20 W = 0 mm F = 0 mm Cockroach Mix 1:20 W = 0 mm F = 0 mm Mite Df 10,000 AU/ml W = 0 mm F = 0 mm Mite Dp 10,000 AU/ml W = 0 mm F = 0 mm Alternaria Alternata 1:10 W = 0 mm F = 0 mm Aspergillus Fumigatus 1:20 W = 0 mm F = 0 mm Cladosporium sphaerospermum 1:20 W = 0 mm F = 0 mm Birch Mix 1:20 W = 0 mm F = 0 mm Maple Mix 1:20 W = 0 mm F = 0 mm Elm , Scottish 1:20 W = 0 mm F = 0 mm [place], Shagbark 1:20 W = 0 mm F = 0 mm [place], Black 1:20 W = 0 mm F = 0 mm Perennial [place] 100,00 BAU/ml W = 0 mm F = 0 mm [place] 100,000 BAU/ml W = 0 mm F = 0 mm Lambs Quarter 1:20 W = 0 mm F = 0 mm Marshelder Burweed 1:20 W = 0 mm F = 0 mm Ragweed Mix 1:20 W = 0 mm F = 0 mm Histamine, positive control (Histamine base 6mg/ml) W = 6 mm F = 10 mm INTRADERMAL MIXES Control Negative - HSA I D: W = 0 mm F = 0 mm Cat Hair 100 BAU/ml I D: W = 0 mm F = 0 mm Dog Epithelia 1:250 I D: W = 0 mm F = 0 mm Mite DF 30 AU/ml I D: W = 6 mm F = 6 mm Mite DP 30 AU/ml I D: W = 7 mm F = 10 mm Tree Mix, Eastern Tree 8 1:500 I D: W = 5 mm F = 5 mm Grasses Mix, K-O-T 1000 BAU/ml I D: W = 0 mm F = 0 mm Special Grass Mix 1000 BAU/ml I D: W = 0 mm F = 0 mm Ragweed Mix 1:500 I D: W = 0 mm F = 0 mm Special [place] Mix 1:500 I D: W = 0 mm F = 0 mm Histamine positive control (Histamine base 0.1mg/ml) I D: W = 10 mm F = 25 mm Imaging / Diagnostic Studies: DATE OF EXAM: Mar 27 2022 8:04AM [id number] - XR CHEST 2V FRONTAL/LAT / PROCEDURE REASON: multiple diagnoses CLINICAL HISTORY: Wheezing. Productive cough MQ: [id number] EXAM DATE/TIME: 03/27/2022 8:04 AM COMPARISON: Comparison is made to prior chest radiograph dated 04 March 2020, 09 April 2019 and 12 August 2018. RESULT: Lines, tubes, and devices: None. 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 Lingular and bibasilar fibrotic scarring is stable. There is no focal consolidation or acute pleural process. There is no vascular redistribution to suggest pulmonary edema. Cardiomediastinal silhouette: Unchanged cardiomediastinal silhouette with mildly enlarged cardiac silhouette and calcified unfolded descending thoracic aorta. Bones/soft tissues: The bony structures are intact with degenerative change. No bony destructive process noted. IMPRESSION: Stable chest. No acute cardiopulmonary process. I personally reviewed the images which shows eventration of diaphragm and old granulomatous disease. 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 Elevated prostate specific antigen (PSA) 11/22/2014 Family history of malignant neoplasm of gastrointestinal tract History of tear of ACL (anterior cruciate ligament) 1989 right knee Internal hemorrhoids without mention of complication Mitral valve disorders(424.0) Obstructive sleep apnea CPAP Other symptoms involving digestive system(787.99) Personal history of colonic polyps Colon polyps Snoring Unspecified essential hypertension ALLERGIES Allergen Reactions Adhesive Rash Dust Mites Naprosyn [Naproxen] GI Upset kagzqqtjnph-adozmjvkc-niwnbzbm (TRELEGY ELLIPTA) 200-62.5-25 mcg inhalation powder^Inhale 1 Puff asinstructed once daily.^Disp: 180 Each^Rfl: [address] (PROTONIX) 40 mg tablet^Take 40 mg by mouth once daily.^Disp: ^Rfl: apixaban (ELIQUIS) 5 mg tab(s)^Take 1 tablet by mouth twice daily.^Disp: 180 tablet^Rfl: 3 flecainide (TAMBOCOR) 100 mg tablet^TAKE 1/2 TABLET BY MOUTH TWICE DAILY^Disp: 90 tablet^Rfl: 3 fluticasone (FLONASE) 50 mcg/actuation nasal spray^SPRAY 1 SPRAY INTO EACH NOSTRIL EVERY DAY^Disp: 16 mL^Rfl: 5 (Patient taking differently: As needed) pravastatin (PRAVACHOL) 40 mg tablet^Take 1 tablet by mouth daily at bedtime.^Disp: 90 tablet^Rfl: 3 levalbuterol tartrate HFA (XOPENEX HFA) 45 mcg/actuation inhaler^Inhale 1-2 Puffs as instructed every 4 hours as needed for wheezing/shortness of breath.^Disp: 1 Inhaler^Rfl: 2 tamsulosin (FLOMAX) 0.4 mg^TAKE 2 CAPSULES BY MOUTH EVERY DAY 1/2 HOUR AFTER SAME MEAL EVERY DAY- MAXIMUM 0.8MG DAILY^Disp: 60 capsule^Rfl: 11 finasteride (PROSCAR) 5 mg tablet^Take 1 tablet by mouth once daily.^Disp: 90 tablet^Rfl: 3 amLODIPine (NORVASC) 5 mg tablet^Take 1 tablet by mouth once daily.^Disp: 90 tablet^Rfl: 3 doxazosin (CARDURA) 2 mg tablet^Take 1 tablet by mouth once daily.^Disp: 90 tablet^Rfl: 3 lisinopril (ZESTRIL, PRINIVIL) 20 mg tablet^Take 1 tablet by mouth once daily.^Disp: 90 tablet^Rfl:3 metoprolol succinate ER (TOPROL XL) 25 mg 24 hr tablet^Take 1 tablet by mouth twice daily.^Disp: 180 tablet^Rfl: 3 magnesium oxide (MAG-OXIDE ORAL)^Take 400 mg by mouth twice daily.^Disp: ^Rfl: metFORMIN ER (GLUCOPHAGE XR) 500 mg 24 hr tablet^TAKE 2 TABLETS BY MOUTH TWICE DAILY BEFORE MEALS.^Disp: 360 tablet^Rfl: 3 BIOTIN ORAL^Take by mouth.^Disp: ^Rfl: COQ10, LIPOSOMAL UBIQUINOL, ORAL^Take by mouth once daily. Take for two weeks then restart statin.^Disp: ^Rfl: multivitamins w-minerals/lut(CENTRUM SILVER TAB)^Take one(1) tablet daily.^Disp: ^Rfl: 0 ASPIRIN 81 MG TAB^Take by mouth once daily.^Disp: ^Rfl: 0 Lancets lancets^Test blood sugar(s) once times daily. Dx: Type 2 DM - Controlled E11.9 Insulin: No^Disp: 100 Each^Rfl: 11 CPAP^AutoPAP 12-20 cmH2O, nasal mask, humidity, filters. Lifetime supplies. Dx: 327.23. Fax compliance rpt to [place] in 6 weeks.^Disp: 1 Each^Rfl: 1 Social History Tobacco Use Smoking status: Never Smokeless tobacco: Never Tobacco comments: No one in household smokes. 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 FAMILY HISTORY Problem Relation Age of Onset Colon Cancer Mother Hypertension Mother Cancer Father Prostate Hypertension Father Colon Cancer Sister Breast Cancer Sister PAST SURGICAL HISTORY Procedure Laterality Date ADENOIDECTOMY PRIMARY <AGE 14 Adenoidectomy CARDIOVERSION June 2021 CATARACT EXTRACTION HX Bilateral COLONOSCOPY FLX DX W/COLLJ SPEC WHEN PFRMD 12/21/2002 Colonoscopy COLONOSCOPY FLX DX W/COLLJ SPEC WHEN PFRMD 05/08/2007 Colonoscopy COLONOSCOPY FLX DX W/COLLJ SPEC WHEN PFRMD 06/05/2010 COLONOSCOPY FLX DX W/COLLJ SPEC WHEN PFRMD 09/07/2013 Repeat 4 years for screening COLONOSCOPY FLX DX W/COLLJ SPEC WHEN PFRMD 11/11/2017 Colonoscopy ESOPHAGOGASTRODUODENOSCOPY TRANSORAL DIAGNOSTIC 05/08/2007 EGD PAST SURGICAL HISTORY OF anal fissurectomy PAST SURGICAL HISTORY OF 2019 cyst removed behind left ear REMV CATARACT EXTRACAP,INSERT LENS SIGMOIDOSCOPY FLX DX W/COLLJ SPEC BR/WA IF PFRMD 08/01/2004 Sigmoidoscopy TONSILLECTOMY PRIMARY/SECONDARY <AGE 14 Tonsillectomy PMH, Social history, family history and surgical history reviewed and updated in EMR REVIEW OF SYSTEMS: CONSTITUTIONAL: No fevers, chills, nightsweats, unintended weight loss HEENT: Some nasal congestion/sinus symptoms, sneezing EYES: Blurred vision CARDIOVASCULAR: No chest pain, palpitations, orthopnea, PND. Chronic edema PULM: See HPI GI: No dysphagia/odynophagia, problematic reflux INTEGUMENTARY: No new skin changes or rashes PHYSICAL EXAMINATION: BP 128/70 Pulse 62 Resp 14 Ht 5' 9 (1.75m) Wt 241 lb (109.3kg) SpO2 95% BMI 35.57 kg/(m^2). General Appearance: Obese male, NAD Skin: Skin color, texture, turgor normal, no suspicious rashes or lesions. Head: Normocephalic, no masses, lesions, tenderness or abnormalities. Eyes: Sclera, conjunctiva normal Oropharynx: No oral lesions, no thrush, no cobblestoning Neck: No JVD, no masses Lungs: not labored, normal to percussion, no wheezes or crackles Heart: RRR, no murmur. Extremities: Pitting LE edema, no clubbing Assessment/Plan: 1. Moderate persistent asthma, uncomplicated -Symptoms improved as well as exhaled nitric oxide level -Would continue high-dose Trelegy Ellipta at this point. Hold on starting biologic for his asthma -Exhaled nitric oxide level at next visit. If symptomatically continues to do well then consider decreasing dose of inhaled corticosteroid 2. Eosinophilia -Intermittent eosinophilia. No obvious allergic trigger -See #1 Thuy Valenzuela MD Respiratory [place] documented in this encounterOhio[facility] History of Present illness Narrative* Deloris Salmon [facility] - 08/02/2022 4:55 PM EST Refill Authorization Consent Bill Catalanetler was encountered by text or mychart message to obtain consent for pharmacist managed refill authorization. Patient gives consent to the authorization of prescriptions by a pharmacist. Deloris Salmon [facility] 08/02/2022 documented in this encounterOhiohealth [facility]12-08-2022 History of Present illness Narrative* Haven Marie MD - 08/02/2022 11:30 AM EST Bill Nelson Angeles is a 77 year old male with a history of allergic rhinitis (dust mites), moderatepersistent asthma, GERD and obstructive sleep apnea on BiPAP who presents for a follow-up visit. His last visit was June 14, 2022. A 5-day course of prednisone 40 mg daily was prescribed at that time. Also, Breo Ellipta 200-25 was prescribed to replace 100-25. His symptoms improved significantly up until 1 week ago. During the past week, he has noted chest congestion and some wheezing particularly upon awakening in the morning. Also notes increased asthma symptoms when walking outdoors in cold temperatures. Over the past week, he has been using Xopenex at least once per day for acute symptoms. Denies nocturnal awakenings due to respiratory symptoms. Denies treatment with systemic corticosteroids, ER visits or hospitalizations for respiratory symptoms Complains of sneezing and rhinorrhea. Using fluticasone nasal spray 1 spray each nostril once daily. He continues Protonix 40 mg daily with good control of his GERD symptoms. Dust mite precautions are in place in the home. Patient is scheduled for a follow-up visit in pulmonary medicine on September 17, 2022. (From initial visit on 06/14/22 This is a consultation requested by Alice Holt PA-C for an allergy and immunology evaluation.My final recommendations will be communicated back to the requesting healthcare provider(s) by way of shared medical record or via [place] mail. Bill Reynoso is a 76 year old male who presents with a few month history of increased nasal and asthma symptoms. He complains of cough productive of yellow-green sputum. Cough is worse upon awakening in the morning. Also complains of wheezing. Some shortness of breath when walking his dog outdoors. Nocturnal awakenings due to respiratory symptoms 1-2 nights in the past month. Using Xopenex 1-2 times per day for acute symptoms. He uses Breo Ellipta 100-25 and Singulair daily. Denies treatment with systemic steroids for respiratory symptoms. No emergency room visits or hospitalizations for respiratory symptoms. Cold temperatures are a trigger to symptoms. C/o sneezing and clear rhinorrhea. Symptoms are perennial. He is using Flonase 1 spray to each nostril at bedtime and Singulair +/- relief. Allergy skin tests completed in this office in 2008 were positive to dust mites on intradermal testing. No prior subcutaneous allergy immunotherapy. On May 03, 2022, FeNO was 34 PPB. Spirometry, FEV1 and FVC were reduced with a normal FEV1/FVCratio. Absolute eosinophil count was 650. IgE was 460. Allergen [place] panel was negative. He has a history of obstructive sleep apnea for which he is on AutoPap. He takes Protonix 40 mg daily with good control of his GERD symptoms. Dust mite precautions are in place in the home. Denies a history of recurring or chronic rhinosinusitis. History of nasal fracture in 1971. No prior nasal or sinus surgery. In 2010, CT sinus showed rightward nasal septal deviation. Paranasal sinuses were clear.) REVIEW OF SYSTEMS: Negative for fevers, chills, night sweats and unintentional weight loss. All other review of systems negative except for those listed above. PAST MEDICAL HISTORY Diagnosis Date Anal fistula Arrhythmia Asthma Atrial fibrillation (HCC) Benign neoplasm of colon Cancer (HCC) Coronary artery disease Diabetes mellitus Diaphragm paralysis Elevated prostate specific antigen (PSA) 11/22/2014 Family history of malignant neoplasm of gastrointestinal tract History of tear of ACL (anterior cruciate ligament) 1989 right knee Internal hemorrhoids without mention of complication Mitral valve disorders(424.0) Obstructive sleep apnea Other and unspecified hyperlipidemia Other symptoms involving digestive system(787.99) Personal history of colonic polyps Personal history of colonic polyps Colon polyps Snoring Unspecified essential hypertension MEDICATIONS: pantoprazole DR (PROTONIX) 40 mg tablet^Take 40 mg by mouth once daily.^Disp: ^Rfl: apixaban (ELIQUIS) 5 mg tab(s)^Take 1 tablet by mouth twice daily.^Disp: 180 tablet^Rfl: 3 ondansetron (ZOFRAN) 4 mg tablet^Take 1 tablet by mouth every 8 hours as needed for nausea/vomiting.^Disp: 30 tablet^Rfl: 2 (Patient not taking: Reported on 07/20/2022) DM-GG/aazgohd-AH-legzqtysovodm (CORICIDIN HBP DAY-NIGHT) 10-200 mg(dy)/2 -15-500 mg(nt) TCSq^Per box instructions^Disp: ^Rfl: (Patient not taking: Reported on 07/20/2022) flecainide (TAMBOCOR) 100 mg tablet^TAKE 1/2 TABLET BY MOUTH TWICE DAILY^Disp: 90 tablet^Rfl: 3 blood sugar diagnostic (ACCU-CHEK THIAGO PLUS TEST STRP) test strip^Test blood sugar once daily^Disp: 100 Strip^Rfl: 3 Blood-Glucose Meter (ACCU-CHEK THIAGO PLUS METER)^1 Each once daily.^Disp: 1 Each^Rfl: 0 Blood Glucose Control High and Low (ACCU-CHEK THIAGO CONTROL SOLN) soln^Test controls as needed. Dx:Type 2 DM - Controlled E11.9^Disp: 1 Each^Rfl: 3 fluticasone-vilanterol (BREO ELLIPTA) 200-25 mcg/dose inhaler^Inhale 1 Inhalation as instructed once daily. Rinse mouth out after use.^Disp: 3 Each^Rfl: 3 fluticasone (FLONASE) 50 mcg/actuation nasal spray^SPRAY 1 SPRAY INTO EACH NOSTRIL EVERY DAY^Disp: 16 mL^Rfl: 5 pravastatin (PRAVACHOL) 40 mg tablet^Take 1 tablet by mouth daily at bedtime.^Disp: 90 tablet^Rfl: 3 montelukast (SINGULAIR) 10 mg tablet^Take 1 tablet by mouth daily at bedtime.^Disp: 30 tablet^Rfl: 5 levalbuterol tartrate HFA (XOPENEX HFA) 45 mcg/actuation inhaler^Inhale 1-2 Puffs as instructed every 4 hours as needed for wheezing/shortness of breath.^Disp: 1 Inhaler^Rfl: 2 tamsulosin (FLOMAX) 0.4 mg^TAKE 2 CAPSULES BY MOUTH EVERY DAY 1/2 HOUR AFTER SAME MEAL EVERY DAY- MAXIMUM 0.8MG DAILY^Disp: 60 capsule^Rfl: 11 finasteride (PROSCAR) 5 mg tablet^Take 1 tablet by mouth once daily.^Disp: 90 tablet^Rfl: 3 amLODIPine (NORVASC) 5 mg tablet^Take 1 tablet by mouth once daily.^Disp: 90 tablet^Rfl: 3 doxazosin (CARDURA) 2 mg tablet^Take 1 tablet by mouth once daily.^Disp: 90 tablet^Rfl: 3 lisinopril (ZESTRIL, PRINIVIL) 20 mg tablet^Take 1 tablet by mouth once daily.^Disp: 90 tablet^Rfl:3 metoprolol succinate ER (TOPROL XL) 25 mg 24 hr tablet^Take 1 tablet by mouth twice daily.^Disp: 180 tablet^Rfl: 3 CPAP^AutoPAP 12-20 cmH2O, nasal mask, humidity, filters. Lifetime supplies. Dx: 327.23. Fax compliance rpt to [place] in 6 weeks.^Disp: 1 Each^Rfl: 1 magnesium oxide (MAG-OXIDE ORAL)^Take 400 mg by mouth twice daily.^Disp: ^Rfl: metFORMIN ER (GLUCOPHAGE XR) 500 mg 24 hr tablet^TAKE 2 TABLETS BY MOUTH TWICE DAILY BEFORE MEALS.^Disp: 360 tablet^Rfl: 3 BIOTIN ORAL^Take by mouth.^Disp: ^Rfl: COQ10, LIPOSOMAL UBIQUINOL, ORAL^Take by mouth once daily. Take for two weeks then restart statin.^Disp: ^Rfl: multivitamins w-minerals/lut(CENTRUM SILVER TAB)^Take one(1) tablet daily.^Disp: ^Rfl: 0 ASPIRIN 81 MG TAB^Take by mouth once daily.^Disp: ^Rfl: 0 ALLERGIES: Allergies As of Date: 08/02/2022 Allergen Noted Reaction ADHESIVE 03/21/2010 Rash DUST MITES 05/04/2009 NAPROSYN [NAPROXEN] 06/04/2005 GI Upset Fully Assessed 07/20/2022 PAST SURGICAL HISTORY Procedure Laterality Date ADENOIDECTOMY PRIMARY <AGE 14 Adenoidectomy CATARACT EXTRACTION HX Bilateral COLONOSCOPY FLX DX W/COLLJ SPEC WHEN PFRMD 12/21/2002 Colonoscopy COLONOSCOPY FLX DX W/COLLJ SPEC WHEN PFRMD 05/08/2007 Colonoscopy COLONOSCOPY FLX DX W/COLLJ SPEC WHEN PFRMD 06/05/2010 COLONOSCOPY FLX DX W/COLLJ SPEC WHEN PFRMD 09/07/2013 Repeat 4 years for screening COLONOSCOPY FLX DX W/COLLJ SPEC WHEN PFRMD 11/11/2017 Colonoscopy ESOPHAGOGASTRODUODENOSCOPY TRANSORAL DIAGNOSTIC 05/08/2007 EGD PAST SURGICAL HISTORY OF anal fissurectomy PAST SURGICAL HISTORY OF 2019 cyst removed behind left ear REMV CATARACT EXTRACAP,INSERT LENS SIGMOIDOSCOPY FLX DX W/COLLJ SPEC BR/WA IF PFRMD 08/01/2004 Sigmoidoscopy TONSILLECTOMY PRIMARY/SECONDARY <AGE 14 Tonsillectomy FAMILY HISTORY: Allergic rhinitis:yes: daughter. Asthma: yes: daughter. Eczema: no. Cystic fibrosis: no. Immunodeficiency: no. 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 ENVIRONMENTAL HISTORY: Lives in a house Age of home: 18 months Heating: gas Woodburning fireplace in the home: no Air conditioning: Central air Basement: Dry basement Naomi: Szfz-ow-vzbs carpeting Dust mite controls: Dust mite controls are already in place. Pets in the home: 1 dogs Outdoor animals: There are no outdoor animals Tobacco smoke: No exposure in the home. Physical Exam: GENERAL APPEARANCE:Well appearing, alert, in no acute distress, well-hydrated, well nourished. HEENT: NCAT. EYES: conjunctiva and sclera normal. EARS: External ears normal. Canals clear. TM's normal. NOSE/SINUS: Nares normal. Septum midline. Mucosa normal. No drainage or sinus tenderness. THROAT: no erythema NECK:neck supple, no adenopathy HEART:RRR with normal S1 and S2 ,no murmurs, no gallops, no rubs LUNGS: Clear to auscultation bilaterally, no wheezing, rales or rhonchi EXTREMITIES:Extremities normal, No deformities, No skin discoloration, and No edema SKIN: Skin color, texture, turgor normal. No rashes or lesions. ALLERGY SKIN TESTS on 06/14/22: Negative on prick testing. Positive to dust mites on intradermal testing. ASSESSMENT/PLAN: 1.) Moderate persistent asthma Change from Breo Ellipta 200-25 to Trelegy Ellipta 200-62.5-25 1 inhalation once a day on a regularbasis. Rinse mouth out after use. Continue Singulair 10 mg at bedtime Continue Xopenex HFA inhaler with spacer 2 puffs every 4 hours as needed Depending on clinical course, treatment a biologic may be considered. 2.) Allergic Rhinitis Aggressive environmental controls Dust mite precautions have been instituted in the home. Increase fluticasone nasal spray to 2 sprays each nostril once daily The patient may also take jcdl-pbu-wstvxln loratidine (Claritin) 10 mg, cetirizine (Zyrtec) 10 mg, levocetirizine (xyzal) 5 mg OR fexofenadine (Leah) 180 mg once daily as needed for itching, sneezing or runny nose. 2.) Discussed medication dosage, usage, side effects, and goals of treatment in detail. 3.) Follow-up in 2-3 months with repeat FeNO - patient will return sooner should new symptoms or problems arise. Haven Marie MD documented in this encounterOhio[facility]12-[facility]-2022 Nurse Note* Brittany Degroot RN - 08/02/2022 11:20 AM EST Patient took course of prednisone in May at last OV. C/o congestion in throat and wheezing in the AM over last week. Using Xopenex once daily. Using Breo and singulair as prescribed. Flonase 1 spray to each side once daily. Seeing Dr. [facility]uel[facility] in [facility] in August. documented in this encounterOhio[facility]12-05-2022 History of Present illness Narrative* Tigistcholo Meadows, AUD - 07/30/2022 3:59 PM EST Head and Neck [place] HEARING AID CHECK Name: Bill Reynoso CCF#: [id number] Date of Service: 07/30/2022 Date of : 1945 Age: [age] year old RIGHT: ReSound LINX 3D 761 SN:[id number] Special Effects Makeup Artist/Dome: tulip, 1MP LEFT: ReSound LINX 3D 761 SN: [id number] Special Effects Makeup Artist/Dome: tulip, 1MP Bill Reynoso was seen today for a routine hearing aid check. He reported he hasn't consistentlyworn his hearing aids; the last time was likely in 2019. The hearing aids seem to fall out of his ears and are a hassle with masks/glasses. He is interested in starting to wear them again. Devices were cleaned and checked: Initial listening check revealed devices were in good working condition. Microphones and receivers were vacuumed, domes/wax traps were changed, battery contacts werecleaned and devices were placed in the drying chamber for a cycle. Final listening check revealed adequate function of the devices. Receivers were changed from 2LP to 1MP on both hearing aids and tulip domes were placed on the hearing aids. The medium domes were too small, but patient has tried large open domes in the past without success. The hearing aids were then programmed to his iPhone and the ReSound lambert was installed. All settings were updated in the software and patient was informed of volume control on the hearing aids. Patient's insurance will be charged $50 for today's appointment. Recommendations: * Use of hearing devices during all waking hours except when activities preclude device safety. * Schedule a hearing aid check in 6 months or sooner if concerns arise. * Monitor hearing sensitivity annually or sooner if a change in hearing is noted. Ashia Mahoney Clinical Contract Assistant documented in this encounterOhiohealth [facility]11-25-2022 History of Present illness Narrative* Navin Herbert PA-C - 07/20/2022 2:00 PM EST Images from the original note were not included. Chief complaint: Kidney stones Bill Reynoso is a 76 year old male who presents today for kidney stone management and prevention counseling. Interval hx 05/04/22 Patient was referred by Dr. Tyler, who is following for complex renal cyst(s), due to bilateral renal stones that have been noted on various imaging studies. He does not recall having any stone passage, although the measurements appear to be smaller than previously. Patient currently: no fever, no chills, no nausea, no vomiting, no gross hematuria, and no renal colic Plan was: - Reviewed US scan(s) - bilateral renal stones, nonobstructing. - Discussed surgical and nonsurgical management options, including ESWL, URS, and observation. - Patient chooses to proceed with observation. - Patient is interested in dietary analysis from 24 hour urine test. Litholink kit ordered and willbe sent to house. Interval hx 07/20/22 Patient returns to clinic with , having completed 24-hour urine collection. There is no height or weight on file to calculate BMI. PAST MEDICAL HISTORY Diagnosis Date Anal fistula Arrhythmia Asthma Atrial fibrillation (HCC) Benign neoplasm of colon Cancer (HCC) Coronary artery disease Diabetes mellitus Diaphragm paralysis Elevated prostate specific antigen (PSA) 11/22/2014 Family history of malignant neoplasm of gastrointestinal tract History of tear of ACL (anterior cruciate ligament) 1989 right knee Internal hemorrhoids without mention of complication Mitral valve disorders(424.0) Obstructive sleep apnea Other and unspecified hyperlipidemia Other symptoms involving digestive system(787.99) Personal history of colonic polyps Personal history of colonic polyps Colon polyps Snoring Unspecified essential hypertension PAST SURGICAL HISTORY Procedure Laterality Date ADENOIDECTOMY PRIMARY <AGE 14 Adenoidectomy CATARACT EXTRACTION HX Bilateral COLONOSCOPY FLX DX W/COLLJ SPEC WHEN PFRMD 12/21/2002 Colonoscopy COLONOSCOPY FLX DX W/COLLJ SPEC WHEN PFRMD 05/08/2007 Colonoscopy COLONOSCOPY FLX DX W/COLLJ SPEC WHEN PFRMD 06/05/2010 COLONOSCOPY FLX DX W/COLLJ SPEC WHEN PFRMD 09/07/2013 Repeat 4 years for screening COLONOSCOPY FLX DX W/COLLJ SPEC WHEN PFRMD 11/11/2017 Colonoscopy ESOPHAGOGASTRODUODENOSCOPY TRANSORAL DIAGNOSTIC 05/08/2007 EGD PAST SURGICAL HISTORY OF anal fissurectomy PAST SURGICAL HISTORY OF 2019 cyst removed behind left ear REMV CATARACT EXTRACAP,INSERT LENS SIGMOIDOSCOPY FLX DX W/COLLJ SPEC BR/WA IF PFRMD 08/01/2004 Sigmoidoscopy TONSILLECTOMY PRIMARY/SECONDARY <AGE 14 Tonsillectomy Family History Problem Relation Age of Onset Colon Cancer Mother Hypertension Mother Cancer Father Prostate Hypertension Father Colon Cancer Sister Breast Cancer Sister Social History Tobacco Use Smoking status: Never Smokeless tobacco: Never Tobacco comments: No one in household smokes. Vaping Use Vaping Use: Never used Substance Use Topics Alcohol use: Yes Alcohol/week: 2.5 - 5.0 standard drinks Types: 1 - 2 Cans of Beer (12oz) per week Comment: once every 2 weeks Drug use: No Current Outpatient Medications on File Prior to Visit Medication Sig pantoprazole DR (PROTONIX) 40 mg tablet Take 40 mg by mouth once daily. apixaban (ELIQUIS) 5 mg tab(s) Take 1 tablet by mouth twice daily. ondansetron (ZOFRAN) 4 mg tablet Take 1 tablet by mouth every 8 hours as needed for nausea/vomiting. DM-GG/hvxwcey-PM-rfjggbyuzevfc (CORICIDIN HBP DAY-NIGHT) 10-200 mg(dy)/2 -15-500 mg(nt) TCSq Per box instructions flecainide (TAMBOCOR) 100 mg tablet TAKE 1/2 TABLET BY MOUTH TWICE DAILY blood sugar diagnostic (ACCU-CHEK THIAGO PLUS TEST STRP) test strip Test blood sugar once daily Blood-Glucose Meter (ACCU-CHEK THIAGO PLUS METER) 1 Each once daily. Blood Glucose Control High and Low (ACCU-CHEK THIAGO CONTROL SOLN) soln Test controls as needed. Dx:Type 2 DM - Controlled E11.9 fluticasone-vilanterol (BREO ELLIPTA) 200-25 mcg/dose inhaler Inhale 1 Inhalation as instructed once daily. Rinse mouth out after use. fluticasone (FLONASE) 50 mcg/actuation nasal spray SPRAY 1 SPRAY INTO EACH NOSTRIL EVERY DAY pravastatin (PRAVACHOL) 40 mg tablet Take 1 tablet by mouth daily at bedtime. montelukast (SINGULAIR) 10 mg tablet Take 1 tablet by mouth daily at bedtime. levalbuterol tartrate HFA (XOPENEX HFA) 45 mcg/actuation inhaler Inhale 1-2 Puffs as instructed every 4 hours as needed for wheezing/shortness of breath. tamsulosin (FLOMAX) 0.4 mg TAKE 2 CAPSULES BY MOUTH EVERY DAY 1/2 HOUR AFTER SAME MEAL EVERY DAY- MAXIMUM 0.8MG DAILY finasteride (PROSCAR) 5 mg tablet Take 1 tablet by mouth once daily. amLODIPine (NORVASC) 5 mg tablet Take 1 tablet by mouth once daily. doxazosin (CARDURA) 2 mg tablet Take 1 tablet by mouth once daily. lisinopril (ZESTRIL, PRINIVIL) 20 mg tablet Take 1 tablet by mouth once daily. metoprolol succinate ER (TOPROL XL) 25 mg 24 hr tablet Take 1 tablet by mouth twice daily. CPAP AutoPAP 12-20 cmH2O, nasal mask, humidity, filters. Lifetime supplies. Dx: 327.23. Fax compliance rpt to [facility] in 6 weeks. magnesium oxide (MAG-OXIDE ORAL) Take 400 mg by mouth twice daily. metFORMIN ER (GLUCOPHAGE XR) 500 mg 24 hr tablet TAKE 2 TABLETS BY MOUTH TWICE DAILY BEFORE MEALS. BIOTIN ORAL Take by mouth. COQ10, LIPOSOMAL UBIQUINOL, ORAL Take by mouth once daily. Take for two weeks then restart statin. multivitamins w-minerals/lut(CENTRUM SILVER TAB) Take one(1) tablet daily. ASPIRIN 81 MG TAB Take by mouth once daily. Current Facility-Administered Medications on File Prior to Visit Medication perflutren lipid microspheres 1.3 mL in NaCl (PF) 0.9% 10 mL injection (DEFINITY) sodium chloride 0.9 % (flush) 10 mL (BD POSIFLUSH) ALLERGIES Allergen Reactions Adhesive Rash Dust Mites Naprosyn [Naproxen] GI Upset Office Visit on 05/04/2022 Component Date Value Ref Range Status GLUCOSE UA (POCT) 05/04/2022 Negative Negative mg/dL Final BILIRUBIN UA (POCT) 05/04/2022 Negative Negative Final KETONE UA (POCT) 05/04/2022 Negative Negative mg/dL Final SPECIFIC GRAVITY UA (POCT) 05/04/2022 1.020 1.005 - 1.030 Final HEMOGLOBIN/BLOOD UA (POCT) 05/04/2022 Negative Negative Final PH UA (POCT) 05/04/2022 7.0 4.5 - 8.0 Final PROTEIN UA (POCT) 05/04/2022 30 (A) Negative mg/dL Final UROBILINOGEN UA (POCT) 05/04/2022 0.2 Normal E.U./dL Final NITRITE UA (POCT) 05/04/2022 Negative Negative Final LEUKOCYTES UA (POCT) 05/04/2022 Negative Negative Final COLOR UA (POCT) 05/04/2022 Yellow Final CLARITY UA (POCT) 05/04/2022 Clear Final Stone Panel/ [facility]: 24-Hour Diet Recall: B'fast: Cereal, banana, milk Lunch: ham and cheese sandwich or soup, salad, leftovers Dinner: Pizza, pasta Fluids: + water, + decaf coffee, + V8, + soda, + milk Assessment/Plan: N20.0 Nephrolithiasis (primary encounter diagnosis) R34 Urine volume deficient R82.992 Hyperoxaluria E87.0 Hypernatriuria R82.993 Hyperuricosuria - Emphasis on increasing fluid intake, decreasing sodium, decreasing animal flesh proteins, and decreasing high-oxalate foods and eat alongside calcium-rich foods - New [facility], [place] and [facility] in about 6 months to monitor Reviewed recent 24 hour urine study and discussed strategies for stone prevention. Low urine volume - Recommend increasing your fluid intake to 2.5-3 L/day or 80- 100 fluid oz/day. Not only increase fluids during the day but also drink 1-2 glasses of water before bed, get up at least once through the night to urinate, and then drink another glass of water before returning to sleep. Hyperoxaluria - Recommend a low oxalate diet, adding calcium rich foods at each meal and add a vitamin B6 50-100 mg supplement daily. Hypercalciuria - Recommend a low sodium diet <2000mg/d. Read food labels, choose low sodium options, avoid canned, frozen or boxed meals, eat more fresh foods, and add a fish oil supplement (2000 mg) daily. Hyperuricosuria - Recommend decreasing your 'flesh protein' intake (fish, chicken, beef, and pork).Decreasing portion sizes and frequency during the day can help reduce uric acid levels. A portion size is 4-6 oz/day or about the size of a deck of cards. General stone prevention guidelines: Fluid intake - #1 reason why people form stones - not enough fluid! Recommend increasing water/fluid intake (2.5-3 L/day or 80-100 fluid oz/day), including nighttime hydration. We recommend emptying your bladder and drinking 1-2 glasses of water prior to bed, then getting up at least once during the night to empty your bladder again and drinking 1 more glass of water before returning to bed. All fluids count but water is best. [place] intake - Recommend increasing dietary citrate intake. Adding more fruits & vegetables toyour diet; in particular citrus fruits (anna/limes/lemonade/melons/tomatoes). One can add 4 oz oflemon juice diluted in 32 oz of water daily to start. If diet changes are too difficult we can presc ribe a medication, potassium citrate, that can help increase your citrate levels. Sodium intake - Recommend a low sodium diet <2000mg/d. Read food labels, choose low sodium options, avoid canned, frozen or boxed meals, eat more fresh foods, and possibly add a fish oil supplement daily (2000mg/d) Calcium intake - Recommend 2-3 servings of calcium per day. Not advisable for stone patients to restrict calcium intake as it is very important for good bone, muscle, and tissue health. RTC in 6 months w/ new LL and imaging. I spent a total of 20 minutes on the date of the service which included preparing to see the patient, [id number] patient care, completing clinical documentation, obtaining and/or reviewing separately obtained history, counseling and educating the patient/family/caregiver, ordering medications, dash ts, or procedures, and communicating results to the patient/family/caregiver. Navin Herbert PA-C documented in this encounterOhiohealth [facility]11-21-2022 Instructions* Patient Instructions* Alyssia Tejeda APRN.HABILITATIVE INTERVENTIONIST - 07/16/2022 3:27 PM EST Atrial Fibrillation What is atrial fibrillation? Atrial fibrillation (also called A-fib) is a fast or irregular heartbeat that starts in the upper chambers of the heart. The abnormal heartbeat affects the ability of the heart to pump blood to the rest of the body. What is the cause? An electrical signal in your heart starts each heartbeat, causing the heart muscle to squeeze (contract). Normally, this signal starts in the upper right chamber of the heart (the right atrium) at a place called the sinus node. The signal then follows normal pathways to the upper left atrium and tothe lower chambers of the heart (the ventricles). When you have atrial fibrillation, electrical signals don t start in the normal place in the right atrium and don t travel normally. This can cause the upper chambers of the heart (atria) to beat very fast and not in a normal pattern. Common causes of heart rhythm problems are conditions that damage the heart, like coronary artery disease, heart attack, or heart failure. Problems with the heart valves are another common cause. The heart has 4 valves that open and closewith each heartbeat to help blood flow in the right direction through the heart. Other causes of atrial fibrillation include: Health problems, such as a stroke, lung disease, diabetes, overactive thyroid gland, or high blood pressure Abuse of alcohol or drugs, such as cocaine Sometimes no cause can be found. What are the symptoms? Some people don t have any symptoms. When atrial fibrillation does cause symptoms, the most common ones are: Feeling like your heart is beating too fast or too hard or skipping beats or fluttering Feeling tired or weak all the time Symptoms that are more serious include: Chest pain Trouble breathing Lightheadedness or dizziness Confusion How is it diagnosed? Your healthcare provider will ask about your symptoms and medical history and examine you. Tests may include: An ECG (also called an EKG), which measures and records your heartbeat. You may have an ECG while you are resting or while you exercise on a treadmill. You may also be asked to wear a small portable ECG monitor for a few days or sometimes a couple weeks. Blood tests An echocardiogram, which uses sound waves (ultrasound) to show the structures of the heart, like the valves How is it treated? The goal of treatment is to help the heart keep a normal rhythm. Your treatment depends on the cause of the atrial fibrillation, how often you have symptoms, and the severity of your symptoms. If you have no symptoms, or your symptoms are fairly mild, you may not need treatment. For some people atrial fibrillation lasts just a short time and the heart goes back to a normal rhythm on its own. If you keep having spells of atrial fibrillation, treatment may help keep you from having so manyspells. If a health problem like a leaky heart valve is causing the atrial fibrillation, treating the health problem may also treat the fast or irregular heartbeat. Other possible treatments are: Medicine: Your provider may prescribe medicine to slow or restore a normal heart rate and rhythm. You may also need medicine to prevent blood clots because when the heart beats irregularly, some of the blood can stay in the upper chambers too long. This makes it easier for blood clots to form, increasing your risk of having a stroke or heart attack. Electrical cardioversion: First, you will be given medicine called anesthesia to keep you from feeling pain during the procedure. Then your chest will be given an electrical shock. The electrical shock should make your heart start beating normally again. You may need medicine to keep your heart rhythm normal after this procedure. Ablation: Ablation is a procedure that uses a small tube called a catheter to deliver energy to theinside of the heart. The energy (usually radio waves) scars small areas of heart tissue. The scars block abnormal electrical pathways and help you have a normal heart rhythm. With some types of ablation treatment, you will also need a pacemaker. A pacemaker is an electronic device put under the skin of your chest to help control the heartbeat. How can I take care of myself? Take your medicines as prescribed. Keep your appointments for follow-up blood tests. Make sure your healthcare provider knows about changes in your diet or medical condition. Your provider also needs to know about all prescription and nonprescription medicines, herbs, or supplements that you are taking. Some medicines may interact with your heart medicine or increase your risk for atrial fibrillation. If you want to drink alcohol, ask your provider how much is safe for you to drink. Follow your healthcare provider's instructions. Ask your provider: ?How and when you will hear your test results ?How long it will take to recover ?What activities you should avoid and when you can return to your normal activities ?How to take care of yourself at home ?What symptoms or problems you should watch for and what to do if you have them Make sure you know when you should come back for a checkup. How can I help prevent atrial fibrillation? The best prevention is to have a heart-healthy lifestyle. Keep a healthy weight. Eat a healthy diet that is low in sodium and saturated and trans fat. Stay fit with the right kind of exercise for you. Decrease stress. Don t smoke. Limit your use of alcohol. If you have heart disease or high blood pressure, follow your healthcare provider's instructions for treatment. Developed by [employer]. Published by [employer]. Copyright 2014 [employer] and/or one of its subsidiaries. All rights reserved. documented in this encounterOhiohealth Grady [facility]11-21-2022 History of Present illness Narrative* Alyssia Tejeda APRN.CNP - 07/16/2022 3:00 PM EST Chief Complaint Patient presents with: ED Follow-up History of Present Illness: Bill Reynoso is a 76 year old male who presents for routine follow up. He has a PMhx of PAF, HTN, HLD, DM2, BROCK, CKD. He is known to Dr. Hilton, last seen in office on 01/02/2022. His accompanies him for his office visit today. He explains he tested positive for COVID on June 26. He then developed palpitations on June 30 and went to the ER was found to have a normal rhythm. He then was at a family gathering on November 13 was noted to have an elevated heart rate 140s he again presented to the ER and was found to be in A. fib and underwent a cardioversion. He was restarted on Eliquis for stroke risk reduction. He is maintained on flecainide. He states he has been doing well s tatus post cardioversion without a symptomatic recurrence of A. fib. He is able to monitor his rhythm with an apple watch and strips are presented in office today which appear that he is maintaining a normal sinus rhythm. He denies any other cardiac complaints. He walks daily with his dog and is considering joining a gym for resistance training. We reviewed cardiac risk factors and modifications.He reports taking medications as prescribed. He has been seen in consultation by EP physician at [facility]. PAST MEDICAL HISTORY Diagnosis Date Anal fistula Arrhythmia Asthma Atrial fibrillation (HCC) Benign neoplasm of colon Cancer (HCC) Coronary artery disease Diabetes mellitus Diaphragm paralysis Elevated prostate specific antigen (PSA) 11/22/2014 Family history of malignant neoplasm of gastrointestinal tract History of tear of ACL (anterior cruciate ligament) 1989 right knee Internal hemorrhoids without mention of complication Mitral valve disorders(424.0) Obstructive sleep apnea Other and unspecified hyperlipidemia Other symptoms involving digestive system(787.99) Personal history of colonic polyps Personal history of colonic polyps Colon polyps Snoring Unspecified essential hypertension PAST SURGICAL HISTORY Procedure Laterality Date ADENOIDECTOMY PRIMARY <AGE 14 Adenoidectomy CATARACT EXTRACTION HX Bilateral COLONOSCOPY FLX DX W/COLLJ SPEC WHEN PFRMD 12/21/2002 Colonoscopy COLONOSCOPY FLX DX W/COLLJ SPEC WHEN PFRMD 05/08/2007 Colonoscopy COLONOSCOPY FLX DX W/COLLJ SPEC WHEN PFRMD 06/05/2010 COLONOSCOPY FLX DX W/COLLJ SPEC WHEN PFRMD 09/07/2013 Repeat 4 years for screening COLONOSCOPY FLX DX W/COLLJ SPEC WHEN PFRMD 11/11/2017 Colonoscopy ESOPHAGOGASTRODUODENOSCOPY TRANSORAL DIAGNOSTIC 05/08/2007 EGD PAST SURGICAL HISTORY OF anal fissurectomy PAST SURGICAL HISTORY OF 2019 cyst removed behind left ear REMV CATARACT EXTRACAP,INSERT LENS SIGMOIDOSCOPY FLX DX W/COLLJ SPEC BR/WA IF PFRMD 08/01/2004 Sigmoidoscopy TONSILLECTOMY PRIMARY/SECONDARY <AGE 14 Tonsillectomy FAMILY HISTORY Problem Relation Age of Onset Colon Cancer Mother Hypertension Mother Cancer Father Prostate Hypertension Father Colon Cancer Sister Breast Cancer Sister Social History Tobacco Use Smoking status: Never Smokeless tobacco: Never Tobacco comments: No one in household smokes. Vaping Use Vaping Use: Never used Substance Use Topics Alcohol use: Yes Alcohol/week: 2.5 - 5.0 standard drinks Types: 1 - 2 Cans of Beer (12oz) per week Comment: once every 2 weeks Drug use: No ALLERGIES Allergen Reactions Adhesive Rash Dust Mites Naprosyn [Naproxen] GI Upset Medications: Current Outpatient Medications Medication Sig Dispense Refill pantoprazole DR (PROTONIX) 40 mg tablet Take 40 mg by mouth once daily. ondansetron (ZOFRAN) 4 mg tablet Take 1 tablet by mouth every 8 hours as needed for nausea/vomiting. 30 tablet 2 DM-GG/aakvecp-DU-qtuskdwtxfpro (CORICIDIN HBP DAY-NIGHT) 10-200 mg(dy)/2 -15-500 mg(nt) TCSq Per box instructions flecainide (TAMBOCOR) 100 mg tablet TAKE 1/2 TABLET BY MOUTH TWICE DAILY 90 tablet 3 blood sugar diagnostic (ACCU-CHEK THIAGO PLUS TEST STRP) test strip Test blood sugar once daily 100 Strip 3 Blood-Glucose Meter (ACCU-CHEK THIAGO PLUS METER) 1 Each once daily. 1 Each 0 Blood Glucose Control High and Low (ACCU-CHEK THIAGO CONTROL SOLN) soln Test controls as needed. Dx:Type 2 DM - Controlled E11.9 1 Each 3 fluticasone-vilanterol (BREO ELLIPTA) 200-25 mcg/dose inhaler Inhale 1 Inhalation as instructed once daily. Rinse mouth out after use. 3 Each 3 fluticasone (FLONASE) 50 mcg/actuation nasal spray SPRAY 1 SPRAY INTO EACH NOSTRIL EVERY DAY 16 mL 5 pravastatin (PRAVACHOL) 40 mg tablet Take 1 tablet by mouth daily at bedtime. 90 tablet 3 montelukast (SINGULAIR) 10 mg tablet Take 1 tablet by mouth daily at bedtime. 30 tablet 5 levalbuterol tartrate HFA (XOPENEX HFA) 45 mcg/actuation inhaler Inhale 1-2 Puffs as instructed every 4 hours as needed for wheezing/shortness of breath. 1 Inhaler 2 tamsulosin (FLOMAX) 0.4 mg TAKE 2 CAPSULES BY MOUTH EVERY DAY 1/2 HOUR AFTER SAME MEAL EVERY DAY- MAXIMUM 0.8MG DAILY 60 capsule 11 finasteride (PROSCAR) 5 mg tablet Take 1 tablet by mouth once daily. 90 tablet 3 amLODIPine (NORVASC) 5 mg tablet Take 1 tablet by mouth once daily. 90 tablet 3 doxazosin (CARDURA) 2 mg tablet Take 1 tablet by mouth once daily. 90 tablet 3 lisinopril (ZESTRIL, PRINIVIL) 20 mg tablet Take 1 tablet by mouth once daily. 90 tablet 3 metoprolol succinate ER (TOPROL XL) 25 mg 24 hr tablet Take 1 tablet by mouth twice daily. 180 tablet 3 CPAP AutoPAP 12-20 cmH2O, nasal mask, humidity, filters. Lifetime supplies. Dx: 327.23. Fax compliance rpt to [facility] in 6 weeks. 1 Each 1 magnesium oxide (MAG-OXIDE ORAL) Take 400 mg by mouth twice daily. metFORMIN ER (GLUCOPHAGE XR) 500 mg 24 hr tablet TAKE 2 TABLETS BY MOUTH TWICE DAILY BEFORE MEALS. 360 tablet 3 BIOTIN ORAL Take by mouth. COQ10, LIPOSOMAL UBIQUINOL, ORAL Take by mouth once daily. Take for two weeks then restart statin. multivitamins w-minerals/lut(CENTRUM SILVER TAB) Take one(1) tablet daily. 0 ASPIRIN 81 MG TAB Take by mouth once daily. 0 apixaban (ELIQUIS) 5 mg tab(s) Take 1 tablet by mouth twice daily. 180 tablet 3 Current Facility-Administered Medications Medication Dose Route Frequency Provider Last Rate Last Admin perflutren lipid microspheres 1.3 mL in NaCl (PF) 0.9% 10 mL injection (DEFINITY) INTRAVENOUS DIRECTED PRN Alice Holt PA-C sodium chloride 0.9 % (flush) 10 mL (BD POSIFLUSH) 10 mL INTRAVENOUS DIRECTED PRN Alice Holt PA-C Review of Systems Constitutional: Negative for chills, diaphoresis, fever, malaise/fatigue and weight loss. HENT: Negative for congestion, ear pain, nosebleeds, sinus pain and sore throat. Eyes: Negative for pain. Respiratory: Negative for cough, shortness of breath and wheezing. Cardiovascular: Negative for chest pain, palpitations and leg swelling. Gastrointestinal: Negative for abdominal pain, blood in stool and melena. Genitourinary: Negative for hematuria. Musculoskeletal: Negative for falls. Neurological: Negative for dizziness, tingling, sensory change, speech change, focal weakness, lossof consciousness, weakness and headaches. Endo/Heme/Allergies: Does not bruise/bleed easily. Psychiatric/Behavioral: Negative for depression, memory loss and suicidal ideas. The patient is notnervous/anxious and does not have insomnia. Physical Examination: Vitals:BP 124/80 Pulse 58 Wt 243 lb (110.2kg) SpO2 93% Last 2 Encounter Wt Readings: Date: Wt: 06/14/2022 244 lb (110.7 kg) 05/03/2022 243 lb (110.2 kg) Physical Exam HENT: Head: Normocephalic. Eyes: Pupils: Pupils are equal, round, and reactive to light. Cardiovascular: Rate and Rhythm: Normal rate and regular rhythm. Pulses: Radial pulses are 2+ on the right side and 2+ on the left side. Dorsalis pedis pulses are 2+ on the right side and 2+ on the left side. Heart sounds: Normal heart sounds, S1 normal and S2 normal. Pulmonary: Effort: Pulmonary effort is normal. No accessory muscle usage or respiratory distress. Breath sounds: Normal breath sounds. Abdominal: General: Bowel sounds are normal. Palpations: Abdomen is soft. Musculoskeletal: General: Normal range of motion. Cervical back: Normal range of motion. Right lower leg: No edema. Left lower leg: No edema. Skin: General: Skin is warm and dry. Neurological: Mental Status: He is alert and oriented to person, place, and time. Gait: Gait is intact. Psychiatric: Mood and Affect: Affect normal. Cognition and Memory: Memory normal. Judgment: Judgment normal. Most Recent Cardiac Testing Treadmill Myoview Stress 09/12/20 STRESS ECG SUMMARY: The patient's resting heart rate was 71 bpm and blood pressure was 160/92 mmHg. The patient exercised according to the Modified Mo protocol. Total exercise time was 14 minutes and 50 seconds. The maximum heart rate was 133 bpm, which is 90%predicted for age. METs achieved was 10.4. The double product achieved was [address]. Peak heart rate was 133 bpm and peak blood pressure was 180/98 mmHg. CONCLUSIONS: 1. SPECT Perfusion Study: Normal. 2. There is no scintigraphic evidence for inducible ischemia. 3. No evidence of scarred myocardium. 4. Left ventricle is normal in size. The left ventricle systolic function is normal. 5. Right ventricle is normal in size. 6. This is a low risk scan. Gated Stress FBP LVEF % 58 Zio Patch Monitor 08/29/20-09/12/20 Preliminary Findings Patient had a min HR of 43 bpm, max HR of 174 bpm, and avg HR of 56 bpm. Predominant underlying rhythm was Sinus Rhythm. 31 Supraventricular Tachycardiaruns occurred, the run with the fastest interval lasting 13 beats with a max rate of174 bpm, the longest lasting 20 beats with an avg rate of 112 bpm. Some episodesof Supraventricular Tachycardia may be possible Atrial Ta chycardia with variableblock. Idioventricular Rhythm was present. Isolated SVEs were rare (<1.0%), SVECouplets were rare (<1.0%), and SVE Triplets were rare (<1.0%). Isolated VEs wereoccasional (3.3%, 04171), VE Couplets were rare (<1.0%, 2532), and VE Triplets were rare (<1.0%, 16). Ventricular Bigeminy and Trigeminy were present. Echocardiogram 04/26/17: CONCLUSIONS: - Technically difficult exam due to body habitus. - Exam indication: Atrial fibrillation - The left ventricle is normal in size. There is moderate concentric left ventricular hypertrophy. Left ventricular systolic function is normal. EF = 60 5% (visual est.) Grade I left ventricular diastolic dysfunction. - The right ventricle is normal in size. Right ventricular systolic function is normal. - The left atrial cavity is moderately dilated. - Mild MR - Moderate AV sclerosis. - Exam was compared with the prior echocardiographic exam performed on 04/19/2015 (Stress). No significant change. Assessment and Plan: PAF -longstanding hx dating back 25 years. Has rare occurrences. in July 2021 after not wearing CPAP for a week and most recently again earlier June shortly after testing positive for COVID. recent event July 08 requiring cardioversion in ER. Has maintained a normal rhythm since without symptomatic recurrence. He is able to monitor his HR and rhythm at home -rate controlled today in office, continue flecainide -CHADSVASC elevated, continue Eliquis 5 mg twice daily -follow up with EP (already established) if recurrences continue and want to consider other antiarrythmic therapies or ablation HTN -124/80 -Continue current medication(s) -Encouraged dietary sodium restriction/DASH diet -Recommended regular aerobic exercise. -Recommend home blood pressure monitoring, to bring results in on next visit -Discussed need and benefit for weight loss. -Goal of BP <130/80 HLD -lipid panel 03/2022 LDL 67 -continue pravastatin DM2 -A1C 02/2022 6.9 -metformin BROCK -CPAP compliant Obesity -lifestyle modifications -encouraged a heart healthy diet, routine exercise and weight loss Follow up with Dr. Hilton in 6 months. Patient to call with any issues or concerns prior to then. Electronically signed by Alyssia Tejeda APRN.CNP on July 16, 2022, 12:44 PM documented in this encounterOhiohealth [facility]11-14-2022 Miscellaneous Notes* Telephone Encounter - Kimberley Lundy RN - 07/09/2022 10:43 AM EST Called and spoke to , Anju. Verified started Eliquis on Saturday. States sent a [employer] messageas well to provider. * Telephone Encounter - Shaunna Anglin LPN - 07/09/2022 10:05 AM EST Anju patient's called with update on patient, went to [facility] ER yesterday with A fib, was cardioverted, successfully and started xeralto again on Saturday07/04/22. Anju will send EKG via [employer] to know if patient should be doing anything else? Patient has appointment on Saturday07/16/22.Thank you. documented in this encounterOhiohealth [facility]ady [facility]11-03-2022 History of Present illness Narrative* Leighann Carmichael APRN.CNP - 06/28/2022 2:02 PM EDT This Team Access Model visit is a virtual encounter. It required patient- provider interaction for the medical decision making as documented below. Patient agrees to the visit: Yes Patient Location: [place] CC: Patient presents with: COVID HPI Bill Reynoso is a 76 year old male who is contacted today for a virtual visit. This is an established patient of Dr. Jo Woods MD. Patient is positive for COVID and was started on molnupiravir on 06/26. Has been taking as prescribed. Patient feels symptoms are improving today, but still with nagging cough sometimes productive of clear sputum. This cough is less severe and frequent, but is using benzonatate 3 times a day except only needing it once today. Pulse ox is now 93-94%. Had been having shortness of breath with exertion which is also improving. Worse day was Saturday with pulse ox in the upper 80s, chills, nausea, and just felt terrible. Today denies fever, chills, wheezing, dizziness, headaches, sore throat, sinus pressure, nausea, vomiting, fatigue, Has not needed xopenex at all this week. REVIEW OF SYSTEMS General: no fevers, no chills, no night sweats, no recurrent infections, no change in appetite, no change in energy, and no significant changes in weight Respiratory: no wheezing, no shortness of breath, no hemoptysis Cardiovascular: no chest pain, no chest pressure, no palpitations, and no swelling Neurologic: No headache, weakness, numbness, tingling,dizziness, syncope. PAST MEDICAL HISTORY Diagnosis Date Anal fistula Arrhythmia Asthma Atrial fibrillation (HCC) Benign neoplasm of colon Cancer (HCC) Coronary artery disease Diabetes mellitus Diaphragm paralysis Elevated prostate specific antigen (PSA) 11/22/2014 Family history of malignant neoplasm of gastrointestinal tract History of tear of ACL (anterior cruciate ligament) 1989 right knee Internal hemorrhoids without mention of complication Mitral valve disorders(424.0) Obstructive sleep apnea Other and unspecified hyperlipidemia Other symptoms involving digestive system(787.99) Personal history of colonic polyps Personal history of colonic polyps Colon polyps Snoring Unspecified essential hypertension PAST SURGICAL HISTORY Procedure Laterality Date ADENOIDECTOMY PRIMARY <AGE 14 Adenoidectomy CATARACT EXTRACTION HX Bilateral COLONOSCOPY FLX DX W/COLLJ SPEC WHEN PFRMD 12/21/2002 Colonoscopy COLONOSCOPY FLX DX W/COLLJ SPEC WHEN PFRMD 05/08/2007 Colonoscopy COLONOSCOPY FLX DX W/COLLJ SPEC WHEN PFRMD 06/05/2010 COLONOSCOPY FLX DX W/COLLJ SPEC WHEN PFRMD 09/07/2013 Repeat 4 years for screening COLONOSCOPY FLX DX W/COLLJ SPEC WHEN PFRMD 11/11/2017 Colonoscopy ESOPHAGOGASTRODUODENOSCOPY TRANSORAL DIAGNOSTIC 05/08/2007 EGD PAST SURGICAL HISTORY OF anal fissurectomy PAST SURGICAL HISTORY OF 2019 cyst removed behind left ear REMV CATARACT EXTRACAP,INSERT LENS SIGMOIDOSCOPY FLX DX W/COLLJ SPEC BR/WA IF PFRMD 08/01/2004 Sigmoidoscopy TONSILLECTOMY PRIMARY/SECONDARY <AGE 14 Tonsillectomy ALLERGIES Adhesive, Dust Mites, and Naprosyn [Naproxen] MEDICATIONS ondansetron (ZOFRAN) 4 mg tablet^Take 1 tablet by mouth every 8 hours as needed for nausea/vomiting.^Disp: 30 tablet^Rfl: 2 molnupiravir 200 mg capsule^Take 4 capsules by mouth twice daily for 5 days.^Disp: 40 capsule^Rfl: 0 fluticasone (FLONASE) 50 mcg/actuation nasal spray^Use 1 Ilfeld in each nostril daily at bedtime for10 days.^Disp: 9.9 mL^Rfl: 0 benzonatate (TESSALON PERLES) 100 mg capsule^Take 1-2 capsules by mouth three times daily as neededfor cough for up to 10 days.^Disp: 40 capsule^Rfl: 0 DM-GG/lzmlbik-WM-exdotunxpowwy (CORICIDIN HBP DAY-NIGHT) 10-200 mg(dy)/2 -15-500 mg(nt) TCSq^Per box instructions^Disp: ^Rfl: flecainide (TAMBOCOR) 100 mg tablet^TAKE 1/2 TABLET BY MOUTH TWICE DAILY^Disp: 90 tablet^Rfl: 3 blood sugar diagnostic (ACCU-CHEK THIAGO PLUS TEST STRP) test strip^Test blood sugar once daily^Disp: 100 Strip^Rfl: 3 Blood-Glucose Meter (ACCU-CHEK THIAGO PLUS METER)^1 Each once daily.^Disp: 1 Each^Rfl: 0 Blood Glucose Control High and Low (ACCU-CHEK THIAGO CONTROL SOLN) soln^Test controls as needed. Dx:Type 2 DM - Controlled E11.9^Disp: 1 Each^Rfl: 3 fluticasone-vilanterol (BREO ELLIPTA) 200-25 mcg/dose inhaler^Inhale 1 Inhalation as instructed once daily. Rinse mouth out after use.^Disp: 3 Each^Rfl: 3 fluticasone (FLONASE) 50 mcg/actuation nasal spray^SPRAY 1 SPRAY INTO EACH NOSTRIL EVERY DAY^Disp: 16 mL^Rfl: 5 pravastatin (PRAVACHOL) 40 mg tablet^Take 1 tablet by mouth daily at bedtime.^Disp: 90 tablet^Rfl: 3 montelukast (SINGULAIR) 10 mg tablet^Take 1 tablet by mouth daily at bedtime.^Disp: 30 tablet^Rfl: 5 levalbuterol tartrate HFA (XOPENEX HFA) 45 mcg/actuation inhaler^Inhale 1-2 Puffs as instructed every 4 hours as needed for wheezing/shortness of breath.^Disp: 1 Inhaler^Rfl: 2 tamsulosin (FLOMAX) 0.4 mg^TAKE 2 CAPSULES BY MOUTH EVERY DAY 1/2 HOUR AFTER SAME MEAL EVERY DAY- MAXIMUM 0.8MG DAILY^Disp: 60 capsule^Rfl: 11 finasteride (PROSCAR) 5 mg tablet^Take 1 tablet by mouth once daily.^Disp: 90 tablet^Rfl: 3 amLODIPine (NORVASC) 5 mg tablet^Take 1 tablet by mouth once daily.^Disp: 90 tablet^Rfl: 3 doxazosin (CARDURA) 2 mg tablet^Take 1 tablet by mouth once daily.^Disp: 90 tablet^Rfl: 3 lisinopril (ZESTRIL, PRINIVIL) 20 mg tablet^Take 1 tablet by mouth once daily.^Disp: 90 tablet^Rfl:3 metoprolol succinate ER (TOPROL XL) 25 mg 24 hr tablet^Take 1 tablet by mouth twice daily.^Disp: 180 tablet^Rfl: 3 CPAP^AutoPAP 12-20 cmH2O, nasal mask, humidity, filters. Lifetime supplies. Dx: 327.23. Fax compliance rpt to [facility] in 6 weeks.^Disp: 1 Each^Rfl: 1 magnesium oxide (MAG-OXIDE ORAL)^Take 400 mg by mouth twice daily.^Disp: ^Rfl: metFORMIN ER (GLUCOPHAGE XR) 500 mg 24 hr tablet^TAKE 2 TABLETS BY MOUTH TWICE DAILY BEFORE MEALS.^Disp: 360 tablet^Rfl: 3 BIOTIN ORAL^Take by mouth.^Disp: ^Rfl: COQ10, LIPOSOMAL UBIQUINOL, ORAL^Take by mouth once daily. Take for two weeks then restart statin.^Disp: ^Rfl: multivitamins w-minerals/lut(CENTRUM SILVER TAB)^Take one(1) tablet daily.^Disp: ^Rfl: 0 ASPIRIN 81 MG TAB^Take by mouth once daily.^Disp: ^Rfl: 0 FAMILY HISTORY Problem Relation Age of Onset Colon Cancer Mother Hypertension Mother Cancer Father Prostate Hypertension Father Colon Cancer Sister Breast Cancer Sister Social History Tobacco Use Smoking status: Never Smokeless tobacco: Never Tobacco comments: No one in household smokes. Vaping Use Vaping Use: Never used Substance Use Topics Alcohol use: Yes Alcohol/week: 2.5 - 5.0 standard drinks Types: 1 - 2 Cans of Beer (12oz) per week Comment: once every 2 weeks Drug use: No EXAM: Virtual visit completed using video, limited exam completed. GENERAL: alert and appropriate, in no distress, well-hydrated, well nourished, and happy, smiling, interactive RESPIRATORY: breathing non-labored CHEST: equal chest rise with normal respiratory effort ASSESSMENT/PLAN: 1. COVID - ICD9: 079.89, ICD10: U07.1 - much improvement on anti-viral, continue with regimen until completed - follow up if cough does not continue to improve or any other symptoms return or for any new symptoms - go to ER for shortness of breath, pulse ox less than 92%, chest pain, or any other urgent concern. Prescription instructions reviewed with patient as applicable. Potential red flag symptoms discussed with the patient. Reviewed appropriate action plan to take if red flag symptoms occur. Patient agreeable to treatment plan. During this patient visit I have spent approximately 15 minutes in counseling regarding treatment options, medications, and coordinating care. Leighann Carmichael APRN.CNP documented in this encounter[facility] Miscellaneous Notes* Telephone Encounter - Lisseth Chamorro Ma - 06/28/2022 11:17 AM EDT Patient scheduled for VV today. * Telephone Encounter - Leighann Carmichael APRN.CNP - 06/28/2022 10:19 AM EDT Currently we usually only do the monoclonal antibodies if paxlovid is not indicated, but we can further discuss this at appointment. How is his pulse ox today? How is he feeling? Thank you Leighann Carmichael APRN.KATERINA * Telephone Encounter - Ankita Leslie RN - 06/28/2022 9:57 AM EDT calls in to ask about below. Scheduled a VV for tomorrow with Leighann per request to discuss.Saturday would be last day patient could receive infusion per . Ankita Leslie RN * Telephone Encounter - Rachna Fernandez LPN - 06/27/2022 2:17 PM EDT Patient Anju calling asking her should have Monoclonal antibodies are not? The providerhe had his express care on line visit with yesterday said he should have it. Patient is taking oralantiviral rx right now. She is concerned with his SPO2 has been 88% to 89% on room air, he was siting in a recliner resting, he is not short of breath, he has cough, no fever. Please advise documented in this encounterOhio[facility]11-[facility]-2022 Instructions* Patient Instructions* Fatmata Espinsoa APRN.CNP - 06/26/2022 10:54 AM EDT Fact Sheet for Patients And Caregivers Emergency Use Authorization (EUA) Of Molnupiravir For Coronavirus Disease 2019 (COVID-19) What is the most important information I should know about molnupiravir? Molnupiravir may cause serious side effects, including: Molnupiravir may cause harm to your unborn baby. It is not known if molnupiravir will harm your baby if you take molnupiravir during . Molnupiravir is not recommended for use in . Molnupiravir has not been studied in . Molnupiravir was studied in animals only. When molnupiravir was given to animals, molnupiravir caused harm to their unborn babies. You and your healthcare provider may decide that you should take molnupiravir during if there are no other COVID-19 treatment options authorized by the FDA that are accessible or clinicallyappropriate for you. If you and your healthcare provider decide that you should take molnupiravir during , you and your healthcare provider should discuss the known and potential benefits and the potential risksof taking molnupiravir during . For individuals who are able to become : You should use a reliable method of control (contraception) consistently and correctly duringtreatment with molnupiravir and for 4 days after the last dose of molnupiravir. Talk to your healthcare provider about reliable control methods. Before starting treatment with molnupiravir your healthcare provider may do a test to seeif you are before starting treatment with molnupiravir. Tell your healthcare provider right away if you become or think you may be duringtreatment with molnupiravir. Surveillance Program: There is a surveillance program for individuals who take molnupiravir during . The purpose of this program is to collect information about the health of you and your baby. Talk to your healthcare provider about how to take part in this program. If you take molnupiravir during and you agree to participate in the surveillance program and allow your healthcare provider to share your information with [employer],then your healthcare provider will report your use of molnupiravir during to [employer]. by calling or Pregnancyreporting.AudioBeta. For individuals who are sexually active with partners who are able to become : It is not known if molnupiravir can affect sperm. While the risk is regarded as low, animal studies to fully assess the potential for molnupiravir to affect the babies of males treated with molnupiravir have not been completed. A reliable method of control (contraception) should be used consistently and correctly during treatment with molnupiravir and for at least 3 months after thelast dose. The risk to sperm beyond 3 months is not known. Studies to understand the risk to sperm beyond 3 months are ongoing. Talk to your healthcare provider about reliable control methods. Talk to your healthcare provider if you have questions or concerns about how molnupiravir may affectsperm. You are being given this fact sheet because your healthcare provider believes it is necessary to provide you with molnupiravir for the treatment of adults with zmqz-lh-ejsqlmyw coronavirus disease 2019 (COVID-19) with positive results of direct SARS-CoV-2 viral testing, and who are at high risk forprogressing to severe COVID-19 including hospitalization or , and for whom other COVID-19 treatment options authorized by the FDA are not accessible or clinically appropriate. The U.S. Food and Drug Administration (FDA) has issued an Emergency Use Authorization (EUA) to makemolnupiravir available during the COVID-19 pandemic (for more details about an EUA please see What is an Emergency Use Authorization? at the end of this document). Molnupiravir is not an FDA-approved medicine in the [place]. Read this Fact Sheet for information about molnupiravir. Talk to your healthcare provider about your options if you have any questions. It is your choice to take molnupiravir. What is COVID-19? COVID-19 is caused by a virus called a coronavirus. You can get COVID-19 through close contact withanother person who has the virus. COVID-19 illnesses have ranged from very jaoz-oi-cbmmni, including illness resulting in . While information so far suggests that most COVID-19 illness is mild, serious illness can happen and maycause some of your other medical conditions to become worse. Older people and people of all ages with severe, long lasting (chronic) medical conditions like heart disease, lung disease and diabetes, for example seem to be at higher risk of being hospitalized for COVID-19. What is molnupiravir? Molnupiravir is an investigational medicine used to treat ddxu-zf-fnhxjlne COVID-19 in adults: with positive results of direct SARS-CoV-2 viral testing, and who are at high risk for progressing to severe COVID-19 including hospitalization or , and for whom other COVID-19 treatment optionsauthorized by the FDA are not accessible or clinically appropriate. The FDA has authorized the emergency use of molnupiravir for the treatment of mild-tomoderate COVID-19 in adults under an EUA. For more information on EUA, see the What is an Emergency Use Authorization (EUA)? section at the end of this Fact Sheet. Molnupiravir is not authorized: for use in people less than 18 years of age. for prevention of COVID-19. for people needing hospitalization for COVID-19. for use for longer than 5 consecutive days. What should I tell my healthcare provider before I take molnupiravir? Tell your healthcare provider if you: Have any allergies Are or plan to breastfeed Have any serious illnesses Are taking any medicines (prescription, mxtj-ycn-sggtnim, vitamins, or herbal products). How do I take molnupiravir? Take molnupiravir exactly as your healthcare provider tells you to take it. Take 4 capsules of molnupiravir every 12 hours (for example, at 8 am and at 8 pm) Take molnupiravir for 5 days. It is important that you complete the full 5 days of treatment with molnupiravir. Do not stop taking molnupiravir before you complete the full 5 days of treatment, even if you feel better. Take molnupiravir with or without food. You should stay in isolation for as long as your healthcare provider tells you to. Talk to your healthcare provider if you are not sure about how to properly isolate while you have COVID-19. Swallow molnupiravir capsules whole. Do not open, break, or crush the capsules. If you cannot swallow capsules whole, tell your healthcare provider. What to do if you miss a dose: If it has been less than 10 hours since the missed dose, take it as soon as you remember If it has been more than 10 hours since the missed dose, skip the missed dose and take your dose atthe next scheduled time. Do not double the dose of molnupiravir to make up for a missed dose. What are the important possible side effects of molnupiravir? Possible side effects of molnupiravir are: See, What is the most important information I should know about molnupiravir? diarrhea nausea dizziness These are not all the possible side effects of molnupiravir. Not many people have taken molnupiravir. Serious and unexpected side effects may happen. This medicine is still being studied,so it is possible that all of the risks are not known at this time. What other treatment choices are there? Like molnupiravir, FDA may allow for the emergency use of other medicines to treat people with COVID-19. Go to https://www.fda.gov/jgnucstlw-tbxiskxnlmla-pmb-response/zrq-nrqnipcsjybgaar-jmz- policy-framework/vpekabvir-rfl-dpjufsnqysiei for more information. It is your choice to be treated or not to be treated with molnupiravir. Should you decide not to take it, it will not change your standard medical care. What if I am ? is not recommended during treatment with molnupiravir and for 4 days after the last dose of molnupiravir. If you are or plan to breastfeed, talk to your healthcare provider about your options and specific situation before taking molnupiravir. How do I report side effects with molnupiravir? Contact your healthcare provider if you have any side effects that bother you or do not go away. Report side effects to FDA MedWatch at www.fda.gov/medwatch or call 2-000-CWQ-1231 ( ). How should I store molnupiravir? Store molnupiravir capsules at room temperature between 68 F to 77 F (20 C to 25 C). Keep molnupiravir and all medicines out of the reach of children and pets. How can I learn more about COVID-19? Ask your healthcare provider. Visit www.cdc.gov/COVID19 Contact your local or state public health department. Call [employer] at (toll free in the [place] Visit www.3dim What Is an Emergency Use Authorization (EUA)? The [place] FDA has made molnupiravir available under an emergency access mechanism called an Emergency Use Authorization (EUA) The EUA is supported by a [employer] Operator of Health and Human Service (HHS) declaration that circumstances exist to justify emergency use of drugs and biological products during the COVID-19 pandemic. Molnupiravir for the treatment of lxac-on-zeumxsma COVID-19 in adults with positive results of direct SARS-CoV-2 viral testing, who are at high risk for progression to severe COVID-19, including hospitalization or , and for whom alternative COVID-19 treatment options authorized by FDA are not accessible or clinically appropriate, has not undergone the same type of review as an FDA- approved product. In issuing an EUA under the COVID-19 public health emergency, the FDA has determined, among other things, that based on the total amount of scientific evidence available including data from adequate and well-controlled clinical trials, if available, it is reasonable to believe that the product may be effective for diagnosing, treating, or preventing COVID-19, or a serious or life-threatening disease or condition caused by COVID19; that the known and potential benefits of the product, when used to diagnose, treat, or prevent such disease or condition, outweigh the known and potential risks of such product; and that there are no adequate, approved, and available alternatives. All of these criteria must be met to allow for the product to be used in the treatment of patients during the COVID-19 pandemic. The EUA for molnupiravir is in effect for the duration of the COVID-19declaration justifying emergency use of molnupiravir, unless terminated or revoked (after which molnupiravir may no longer be used under the EUA). For patent information: www.AudioBeta/research/patent Copyright 2020 [employer] [place], [place] and its affiliates. All rights reserved. [id number] Issued: 08/17/2021 documented in this encounter[facility] History of Present illness Narrative* Fatmata Espinosa APRN.CNP - 06/26/2022 10:47 AM EDT Telemedicine Evaluation for COVID-19 Infection [employer] was used for evaluation of this patient. Location of patient: [facility] Bill Reynoso is a 76 year old male who presents with POSITIVE COVID TEST 06/26/2022 COVID SXS STARTED:06/24/2022 SXS INCLUDE:cough, some PND (not new) Denies sinus congestion, fever chills or body aches OTC meds/remedies that patient has tried: nothing COVID test: YES COVID VACCINE yes High risk category assessment Age > 60 years old Asthma Exposures: Sick contacts? Yes Contact with anyone confirmed or probable COVID-19 infection in the last 14 days? Yes Family with confirmed COVID-19 infection? Yes Traveled or resided in an area with sustained or ongoing community transmission of COVID-19? No OBJECTIVE VIDEO EXAM (if available) GENERAL APPEARANCE Alert, oriented, pleasant, in NAD :Yes Ill appearing :No Lethargic appearing :No HEENT: Eyes: Sclera clear :Yes Conjunctiva without erythema :Yes Frontal sinus tenderness by self palpation;No Maxillary sinus tenderness by self palpation :No Ears: Tragus / outer ear tenderness by self palpation :No Tender cervical adenopathy by self palpation :No Oropharynx: normal, no erythema PULMONARY Respiratory distress :No Coughing noted: when prompted Audible wheezing noted: No, hx of asthma, denies any worse ciara tightness. Has not used inhaler yet ASSESSMENT/PLAN ASSESSMENT/PLAN: 1. COVID-19 virus infection - ICD9: 079.89, ICD10: U07.1 Drug interaction w/ paxlovid so offered molnipuvir - MOLNUPIRAVIR 200 MG CAPSULE (EUA) - FLUTICASONE PROPIONATE 50 MCG/ACTUATION NASAL SPRAY,SUSPENSION - BENZONATATE 100 MG CAPSULE - CORICIDIN HBP DAY-NIGHT 10-200 MG(DAY)/2-15-500 MG(NT) TABLET,CAPSULE - options discussed; s/e discussed; contraindications discussed; fact sheet attached - labs: <60 Orders Placed This Encounter molnupiravir 200 mg capsule Sig: Take 4 capsules by mouth twice daily for 5 days. Dispense: 40 capsule Refill: 0 Order Specific Question: Prior to the patient receiving molnupiravir, patient has been given the Fact Sheet for Patients and Parents/Caregivers. Answer: Yes Order Specific Question: Patient is within 5 days of symptom onset. . Answer: Yes Order Specific Question: Patient has a positive COVID-19 test (PCR or antigen) to document current infection. Answer: Yes Order Specific Question: In the event of a severe adverse reaction or medication error, provider agrees to complete MedWatch forms per EUA reporting requirements. Answer: Yes Order Specific Question: Completed contraceptive/prophylactic counseling for males who are sexuallyactive with partners of child bearing age OR females with reproductive potential per EUA fact sheetguidance. Answer: Yes fluticasone (FLONASE) 50 mcg/actuation nasal spray Sig: Use 1 Ilfeld in each nostril daily at bedtime for 10 days. Dispense: 9.9 mL Refill: 0 benzonatate (TESSALON PERLES) 100 mg capsule Sig: Take 1-2 capsules by mouth three times daily as needed for cough for up to 10 days. Dispense: 40 capsule Refill: 0 DM-GG/tlomssj-YK-tzgqytcpfnbrp (CORICIDIN HBP DAY-NIGHT) 10-200 mg(dy)/2 -15-500 mg(nt) TCSq Sig: Per box instructions - Reviewed OTC medications and supplements to help w/ sxs - Encouraged good hydration, handwashing and use of humidified air - Encouraged REST - Discussed symptom monitoring and supportive care - Red flag symptoms requiring follow up discussed - All questions answered Fatmata Espinosa CNP If you let us know who your primary care provider is, we will send them a notification of today's visit through our electronic medical records system. Since not all providers have access to our notifications, we strongly encourage you to share the following record of today's visit with your primarycare provider at your next visit. This will help in providing you the best care. If you do not have an established Primary Care physician and would like to continue care with a [facility] physician, please ask your provider to place a Establish PrimaryCare order. Use [employer]Files to manage your care, wherever you are, 24/7, on your mobile device or computer. [employer] connects you to [facility] so you can access all your health information in one place and also schedule and request virtual appointments with primary care providers. Molnupiravir Eligibility and Patient Discussion [facility] Formulary Restriction Criteria: Adult outpatients 18 years and older with ALL of the following: [x] Patient has positive SARS-COV-2 viral test (PCR or antigen test) during current illness [x] Patient has symptoms for 5 days or less [x] Not requiring hospitalization at any time for management of COVID-19 [x] Not requiring supplemental oxygen or a change in baseline supplemental oxygen [x] Not utilized for pre-exposure or post-exposure prophylaxis for prevention of COVID-19 [x] Patient is not or lactating [x] Meeting at least one of the criteria for high risk of progression to severe COVID-19: [x] Age over 65 years [] Cancer [] Chronic kidney disease [] Chronic liver disease [x] Chronic lung diseases, including cystic fibrosis [] Dementia or other neurological conditions [] Diabetes (type 1 or type 2) [] Disabilities, including Down syndrome and neurodevelopmental disorders [] Heart conditions [] HIV infection [] Immunocompromised state [] Mental health conditions [] Medical related technological dependence (tracheostomy, gastrostomy, or positive pressure ventilation (not related to COVID) [] Overweight and obesity (BMI greater or equal to 25 for adults) [] Physical inactivity [] Sickle cell disease or thalassemia [] Smoking, current or former [] Solid organ or blood stem cell transplant [] Stroke or cerebrovascular disease [] Substance use disorders [] Tuberculosis [] People from racial and ethnic minority groups Criteria above are met: Yes Date of Positive Test:06/26/2022 Date of Symptom Onset: 06/24/2022 Patient received COVID vaccine: Yes / status reviewed: Females: [] Patient is not currently and there is no possibility the patient could be (select one of the following): [] test does not need to be confirmed in patients who have undergone permanent sterilization, are currently using an intrauterine system or contraceptive implant, or in whom is not possible. [] Patients not meeting conditions above: assess whether the patient is based on the firstday of the last menstrual period in individuals who have regular menstrual cycles, is using reliable method of contraception correctly and consistently or have had a negative test [] A test is recommended if the individual has irregular menstrual cycles, is unsure of the first day of the last menstrual period or is not using effective contraception correctly and consistently [] Patient is not currently . is not recommended during treatment and for four days after final dose of molnupiravir. [] Females have been advised to use a reliable method of contraception correctly and consistently for the duration of treatment and for four days after the last dose of molnupiravir Males: [x] Sexually active male with partner(s) of childbearing potential has been advised to use a reliable method of contraception correctly and consistently for intercourse for the duration of treatment and for three months after the last dose of molnupiravir I have discussed the use of the investigational therapeutic, molnupiravir, for the treatment of mild to moderate COVID-19 and its use under Emergency Use Authorization with the patient. The patient was informed that molnupiravir is not an FDA approved drug and that it is authorized for use under this Emergency Use Authorization. The patient was also informed of the significant knownbenefits and potential risks of molnupiravir, and the extent to which such potential risks and benefits are unknown. The patient was informed that there is mandatory reporting of all medication errors and serious adverse events potentially related to molnupiravir treatment within 7 calendar days from the onset of the event and that events up to 28 days after completion of therapy need to be reported. The discussion included alternatives to receiving molnupiravir, including clinical trials, and potential the risks and benefits of those alternatives. The patient was provided electronically withthe Fact Sheet for Patients, Parents and Caregivers . The patient was also instructed that in addition to the treatment with molnupiravir, he/she should continue to self-isolate and use infection control measures (e.g., wear mask, isolate, social distance, avoid sharing personal items, clean and disinfect high touch surfaces, and frequent handwashing) according to CDC guidelines. The patient stated understanding and gave verbal consent to proceeding with molnupiravir treatment. Fatmata Espinosa APRN.CNP June 26, 2022 10:56 AM documented in this encounterOhiohealth [facility]10-28-2022 Miscellaneous Notes* Telephone Encounter - Zulema Mike LPN - 06/22/2022 8:05 AM EDT Patient has been identified by name and date of : Yes Pharmacy phones for refill(s): Requested Prescriptions Pending Prescriptions Disp Refills flecainide (TAMBOCOR) 100 mg tablet 90 tablet 3 Sig: TAKE 1/2 TABLET BY MOUTH TWICE DAILY Date of last office visit in primary care: 7 Last 2 Encounter Wt Readings:722 next apt 09/21/22 Date: Wt: 06/14/2022 110.7 kg (244 lb) 05/03/2022 110.2 kg (243 lb) Previous labs/tests for medication: Not applicable Thank you. Zulema Mike LPN documented in this encounterOhiohealth [facility]10-21-2022 Miscellaneous Notes* Telephone Encounter - Zulema Mike LPN - 06/15/2022 11:24 AM EDT Need a DX code and how many times pt test to run thru part B insurance. Patient has been identified by name and date of : Yes Pharmacy phones for refill(s): Requested Prescriptions Pending Prescriptions Disp Refills ACCU-CHEK GUIDE GLUCOSE METER [Pharmacy Med Name: ACCU-CHEK GUIDE MONITOR SYSTEM] 0 Sig: EVERY DAY Date of last office visit in primary care: 03/21/22 next apt 09/21/22 Last 2 Encounter Wt Readings: Date: Wt: 06/14/2022 110.7 kg (244 lb) 05/03/2022 110.2 kg (243 lb) Previous labs/tests for medication: Diabetes: Hemoglobin A1C (%) Date Value 03/14/2022 6.9 03/21/2021 6.9 09/29/2020 6.9 Hemoglobin A1C (POCT) (%) Date Value 09/22/2021 6.6 Thank you. Zulema Mike LPN documented in this encounterOhio[facility]10-20-2022 Instructions* Patient Instructions* Haven Marie MD - 06/14/2022 9:20 AM EDT You are allergic to dust mites Take prednisone 40 mg once a day for 5 days Changed to Breo Ellipta 200-25 1 inhalation once daily. Rinse mouth out after use Continue montelukast/Singulair 10 mg at bedtime Continue Xopenex HFA inhaler 2 puffs every 4 hours as needed. Change from fluticasone nasal spray/Flonase to triamcinolone/Nasacort. Use 2 sprays to each nostrilonce a day every day on a regular You may also take [id number] loratidine (Claritin) 10 mg, cetirizine (Zyrtec) 10 mg, levocetirizine (xyzal) 5 mg OR fexofenadine (Leah) 180 mg once daily as needed for itching, sneezing or runny nose. documented in this encounterOhiohealth [facility]10-20-2022 Nurse Note* Brittany Degroot RN - 06/14/2022 8:26 AM EDT Patient c/o coughing with sputum in the morning, runny nose, sneezing, wheezing. Worse in the AM. Started in early Summer. Symptoms are worsening. Using Breo and levalbuterol, as well as Singulair. Uses Flonase consistently. Denies antihistamine use. documented in this encounterOhiohealth [facility]10-20-2022 History of Present illness Narrative* Haven Marie MD - 06/14/2022 8:20 AM EDT This is a consultation requested by Alice Holt PA-C for an allergy and immunology evaluation.My final recommendations will be communicated back to the requesting healthcare provider(s) by way of shared medical record or via [place] mail. Bill Reynoso is a 76 year old male who presents with a few month history of increased nasal and asthma symptoms. He complains of cough productive of yellow-green sputum. Cough is worse upon awakening in the morning. Also complains of wheezing. Some shortness of breath when walking his dog outdoors. Nocturnal awakenings due to respiratory symptoms 1-2 nights in the past month. Using Xopenex 1-2 times per day for acute symptoms. He uses Breo Ellipta 100-25 and Singulair daily. Denies treatment with systemic steroids for respiratory symptoms. No emergency room visits or hospitalizations for respiratory symptoms. Cold temperatures are a trigger to symptoms. C/o sneezing and clear rhinorrhea. Symptoms are perennial. He is using Flonase 1 spray to each nostril at bedtime and Singulair +/- relief. Allergy skin tests completed in this office in 2008 were positive to dust mites on intradermal testing. No prior subcutaneous allergy immunotherapy. On May 03, 2022, FeNO was 34 PPB. Spirometry, FEV1 and FVC were reduced with a normal FEV1/FVCratio. Absolute eosinophil count was 650. IgE was 460. Allergen [place] panel was negative. He has a history of obstructive sleep apnea for which he is on AutoPap. He takes Protonix 40 mg daily with good control of his GERD symptoms. Dust mite precautions are in place in the home. Denies a history of recurring or chronic rhinosinusitis. History of nasal fracture in 1971. No prior nasal or sinus surgery. In 2010, CT sinus showed rightward nasal septal deviation. Paranasal sinuses were clear. REVIEW OF SYSTEMS: SINUSITIS: The patient does not suffer from frequent sinopulmonary infections. ASTHMA: See [place] ECZEMA: The patient has no history of eczema. URTICARIA:The patient does not have a history of urticaria and/or angioedema. GERD: See [place] INSECT STING: The patient does not have a history of systemic reaction to insect sting. FOOD ALLERGY:The patient denies history of food allergy. LATEX: The patient does not have a history of adverse reaction to latex. All other review of systems negative except for those listed above. PAST MEDICAL HISTORY Diagnosis Date Anal fistula Arrhythmia Asthma Atrial fibrillation (HCC) Benign neoplasm of colon Cancer (HCC) Coronary artery disease Diabetes mellitus Diaphragm paralysis Elevated prostate specific antigen (PSA) 11/22/2014 Family history of malignant neoplasm of gastrointestinal tract History of tear of ACL (anterior cruciate ligament) 1989 right knee Internal hemorrhoids without mention of complication Mitral valve disorders(424.0) Obstructive sleep apnea Other and unspecified hyperlipidemia Other symptoms involving digestive system(787.99) Personal history of colonic polyps Personal history of colonic polyps Colon polyps Snoring Unspecified essential hypertension MEDICATIONS: fluticasone (FLONASE) 50 mcg/actuation nasal spray^SPRAY 1 SPRAY INTO EACH NOSTRIL EVERY DAY^Disp: 16 mL^Rfl: 5 pravastatin (PRAVACHOL) 40 mg tablet^Take 1 tablet by mouth daily at bedtime.^Disp: 90 tablet^Rfl: 3 montelukast (SINGULAIR) 10 mg tablet^Take 1 tablet by mouth daily at bedtime.^Disp: 30 tablet^Rfl: 5 levalbuterol tartrate HFA (XOPENEX HFA) 45 mcg/actuation inhaler^Inhale 1-2 Puffs as instructed every 4 hours as needed for wheezing/shortness of breath.^Disp: 1 Inhaler^Rfl: 2 blood sugar diagnostic (ACCU-CHEK THIAGO PLUS TEST STRP) test strip^Test blood sugar once daily^Disp: 100 Strip^Rfl: 3 Blood Glucose Control High and Low (ACCU-CHEK THIAGO CONTROL SOLN) soln^Test controls as needed. Dx:Type 2 DM - Controlled E11.9^Disp: 1 Each^Rfl: 3 Blood-Glucose Meter (ACCU-CHEK THIAGO PLUS METER)^1 Each once daily.^Disp: 1 Each^Rfl: 0 tamsulosin (FLOMAX) 0.4 mg^TAKE 2 CAPSULES BY MOUTH EVERY DAY 1/2 HOUR AFTER SAME MEAL EVERY DAY- MAXIMUM 0.8MG DAILY^Disp: 60 capsule^Rfl: 11 fluticasone-vilanterol (BREO ELLIPTA) 100-25 mcg/dose inhaler^Inhale 1 Inhalation as instructed once daily.^Disp: 180 Each^Rfl: 3 finasteride (PROSCAR) 5 mg tablet^Take 1 tablet by mouth once daily.^Disp: 90 tablet^Rfl: 3 amLODIPine (NORVASC) 5 mg tablet^Take 1 tablet by mouth once daily.^Disp: 90 tablet^Rfl: 3 doxazosin (CARDURA) 2 mg tablet^Take 1 tablet by mouth once daily.^Disp: 90 tablet^Rfl: 3 lisinopril (ZESTRIL, PRINIVIL) 20 mg tablet^Take 1 tablet by mouth once daily.^Disp: 90 tablet^Rfl:3 metoprolol succinate ER (TOPROL XL) 25 mg 24 hr tablet^Take 1 tablet by mouth twice daily.^Disp: 180 tablet^Rfl: 3 CPAP^AutoPAP 12-20 cmH2O, nasal mask, humidity, filters. Lifetime supplies. Dx: 327.23. Fax compliance rpt to [facility] in 6 weeks.^Disp: 1 Each^Rfl: 1 magnesium oxide (MAG-OXIDE ORAL)^Take 400 mg by mouth twice daily.^Disp: ^Rfl: metFORMIN ER (GLUCOPHAGE XR) 500 mg 24 hr tablet^TAKE 2 TABLETS BY MOUTH TWICE DAILY BEFORE MEALS.^Disp: 360 tablet^Rfl: 3 flecainide (TAMBOCOR) 100 mg tablet^TAKE 1/2 TABLET BY MOUTH TWICE DAILY^Disp: 90 tablet^Rfl: 3 BIOTIN ORAL^Take by mouth.^Disp: ^Rfl: COQ10, LIPOSOMAL UBIQUINOL, ORAL^Take by mouth once daily. Take for two weeks then restart statin.^Disp: ^Rfl: multivitamins w-minerals/lut(CENTRUM SILVER TAB)^Take one(1) tablet daily.^Disp: ^Rfl: 0 ASPIRIN 81 MG TAB^Take one (1) tablet daily .^Disp: ^Rfl: 0 ALLERGIES: Allergies As of Date: 06/14/2022 Allergen Noted Reaction ADHESIVE 03/21/2010 Rash SEASONAL ALLERGIES 01/14/2014 Other: See Comments DUST MITES 05/04/2009 NAPROSYN [NAPROXEN] 06/04/2005 GI Upset Fully Assessed 05/04/2022 PAST SURGICAL HISTORY Procedure Laterality Date ADENOIDECTOMY PRIMARY <AGE 14 Adenoidectomy CATARACT EXTRACTION HX Bilateral COLONOSCOPY FLX DX W/COLLJ SPEC WHEN PFRMD 12/21/2002 Colonoscopy COLONOSCOPY FLX DX W/COLLJ SPEC WHEN PFRMD 05/08/2007 Colonoscopy COLONOSCOPY FLX DX W/COLLJ SPEC WHEN PFRMD 06/05/2010 COLONOSCOPY FLX DX W/COLLJ SPEC WHEN PFRMD 09/07/2013 Repeat 4 years for screening COLONOSCOPY FLX DX W/COLLJ SPEC WHEN PFRMD 11/11/2017 Colonoscopy ESOPHAGOGASTRODUODENOSCOPY TRANSORAL DIAGNOSTIC 05/08/2007 EGD PAST SURGICAL HISTORY OF anal fissurectomy REMV CATARACT EXTRACAP,INSERT LENS SIGMOIDOSCOPY FLX DX W/COLLJ SPEC BR/WA IF PFRMD 08/01/2004 Sigmoidoscopy TONSILLECTOMY PRIMARY/SECONDARY <AGE 14 Tonsillectomy FAMILY HISTORY: Allergic rhinitis:yes: daughter. Asthma: yes: daughter. Eczema: no. Cystic fibrosis: no. Immunodeficiency: no. 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 ENVIRONMENTAL HISTORY: Lives in a house Age of home: 18 months Heating: gas Woodburning fireplace in the home: no Air conditioning: Central air Basement: Dry basement Naomi: [id number]-[id number] carpeting Dust mite controls: Dust mite controls are already in place. Pets in the home: 1 dogs Outdoor animals: There are no outdoor animals Tobacco smoke: No exposure in the home. Physical Exam: GENERAL APPEARANCE:Well appearing, alert, in no acute distress, well-hydrated, well nourished. HEENT: NCAT. EYES: conjunctiva and sclera normal. EARS: External ears normal. Canals clear. TM's normal. NOSE/SINUS: Nares normal. Septum midline. Mucosa normal. No drainage or sinus tenderness. THROAT: no erythema NECK:neck supple, no adenopathy HEART:RRR with normal S1 and S2 ,no murmurs, no gallops, no rubs LUNGS: Expiratory wheezing on forced exhalation, no rales or rhonchi ABDOMEN:soft, nontender, nondistended, without organomegaly or palpable masses EXTREMITIES:Extremities normal, No deformities, No skin discoloration, and No edema SKIN: Skin color, texture, turgor normal. No rashes or lesions. ALLERGY SKIN TESTS:Negative on prick testing. Positive to dust mites on intradermal testing. ASSESSMENT/PLAN: 1.) Moderate persistent asthma, poorly controlled: Take prednisone 40 mg once daily for 5 days Change from Breo Ellipta 100-25 to Breo Ellipta 200-25. Use 1 inhalation once a day on a regular basis. Rinse mouth out after use. Continue Singulair 10 mg at bedtime Continue Xopenex HFA inhaler with spacer 2 puffs every 4 hours as needed Depending on clinical course, treatment with a LAMA or a biologic may be considered. 2.) Allergic Rhinitis Aggressive environmental controls Dust mite precautions have been instituted in the home. Start Nasacort 2 sprays each nostril once daily The patient may also take ftwl-zty-marjmrr loratidine (Claritin) 10 mg, cetirizine (Zyrtec) 10 mg, levocetirizine (xyzal) 5 mg OR fexofenadine (Leah) 180 mg once daily as needed for itching, sneezing or runny nose. 2.) Discussed medication dosage, usage, side effects, and goals of treatment in detail. 3.) Follow-up in 6 weeks - patient will return sooner should new symptoms or problems arise. Haven Marie MD documented in this encounterOhio[facility]09-16-2022 Miscellaneous Notes* Telephone Encounter - Yonis Leija RN - 05/11/2022 12:52 PM EDT Patient has been identified by name and date of : Yes Patient phones for refill(s): Requested Prescriptions Pending Prescriptions Disp Refills pravastatin (PRAVACHOL) 40 mg tablet 90 tablet 3 Sig: Take 1 tablet by mouth daily at bedtime. Date of last office visit with pcp: 03-21-22. Next appt: 09-21-22 This Rx does not appear as sent to pharmacy on med list. Last 2 Encounter Wt Readings: Date: Wt: 05/03/2022 110.2 kg (243 lb) 05/03/2022 110.2 kg (243 lb) Previous labs/tests for medication: Cholesterol: HDL Cholesterol (mg/dL) Date Value 03/27/2022 52 09/18/2021 58 LDL Cholesterol (mg/dL) Date Value 03/27/2022 67 09/18/2021 67 ALT (U/L) Date Value 09/18/2021 17 Non HDL Cholesterol (mg/dL) Date Value 03/27/2022 82 09/18/2021 82 Please advise. Thank you. Yonis Leija RN' documented in this encounterOhiohealth [facility]09-09-2022 History of Present illness Narrative* Navin Herbert PA-C - 05/04/2022 11:11 AM EDT UROLOGY HISTORY & PHYSICAL EXAM SERVICE DATE: 05/04/2022 REFERRING PROVIDER: Naveed Tyler [address] [facility] [id number] PCP: Jo Woods MD SUBJECTIVE CHIEF COMPLAINT: kidney stones HISTORY OF PRESENT ILLNESS: Mr. Reynoso is a 76 year old male who presents for stone consult, is present. Patient was referred by Dr. Tyler, who is following for complex renal cyst(s), due to bilateral renal stones that have been noted on various imaging studies. He does not recall having any stone passage, although the measurements appear to be smaller than previously. Patient currently: no fever, no chills, no nausea, no vomiting, no gross hematuria, and no renal colic PAST MEDICAL HISTORY Diagnosis Date Anal fistula Arrhythmia Asthma Atrial fibrillation (HCC) Benign neoplasm of colon Cancer (HCC) Coronary artery disease Diabetes mellitus Diaphragm paralysis Elevated prostate specific antigen (PSA) 11/22/2014 Family history of malignant neoplasm of gastrointestinal tract History of tear of ACL (anterior cruciate ligament) 1989 right knee Internal hemorrhoids without mention of complication Mitral valve disorders(424.0) Obstructive sleep apnea Other and unspecified hyperlipidemia Other symptoms involving digestive system(787.99) Personal history of colonic polyps Personal history of colonic polyps Colon polyps Snoring Unspecified essential hypertension PAST SURGICAL HISTORY Procedure Laterality Date ADENOIDECTOMY PRIMARY <AGE 14 Adenoidectomy CATARACT EXTRACTION HX Bilateral COLONOSCOPY FLX DX W/COLLJ SPEC WHEN PFRMD 12/21/2002 Colonoscopy COLONOSCOPY FLX DX W/COLLJ SPEC WHEN PFRMD 05/08/2007 Colonoscopy COLONOSCOPY FLX DX W/COLLJ SPEC WHEN PFRMD 06/05/2010 COLONOSCOPY FLX DX W/COLLJ SPEC WHEN PFRMD 09/07/2013 Repeat 4 years for screening COLONOSCOPY FLX DX W/COLLJ SPEC WHEN PFRMD 11/11/2017 Colonoscopy ESOPHAGOGASTRODUODENOSCOPY TRANSORAL DIAGNOSTIC 05/08/2007 EGD PAST SURGICAL HISTORY OF anal fissurectomy REMV CATARACT EXTRACAP,INSERT LENS SIGMOIDOSCOPY FLX DX W/COLLJ SPEC BR/WA IF PFRMD 08/01/2004 Sigmoidoscopy TONSILLECTOMY PRIMARY/SECONDARY <AGE 14 Tonsillectomy FAMILY HISTORY Problem Relation Age of Onset Colon Cancer Mother Hypertension Mother Cancer Father Prostate Hypertension Father Colon Cancer Sister Breast Cancer Sister Social History Tobacco Use Smoking status: Never Smokeless tobacco: Never Tobacco comments: No one in household smokes. Vaping Use Vaping Use: Never used Substance Use Topics Alcohol use: Yes Alcohol/week: 2.5 - 5.0 standard drinks Types: 1 - 2 Cans of Beer (12oz) per week Comment: once every 2 weeks Drug use: No Current Outpatient Medications Medication Sig montelukast (SINGULAIR) 10 mg tablet Take 1 tablet by mouth daily at bedtime. fluticasone (FLONASE) 50 mcg/actuation nasal spray Use 1 [place] in each nostril once daily. levalbuterol tartrate HFA (XOPENEX HFA) 45 mcg/actuation inhaler Inhale 1-2 Puffs as instructed every 4 hours as needed for wheezing/shortness of breath. blood sugar diagnostic (ACCU-CHEK THIAGO PLUS TEST STRP) test strip Test blood sugar once daily Blood Glucose Control High and Low (ACCU-CHEK THIAGO CONTROL SOLN) soln Test controls as needed. Dx:Type 2 DM - Controlled E11.9 Blood-Glucose Meter (ACCU-CHEK THIAGO PLUS METER) 1 Each once daily. pravastatin (PRAVACHOL) 40 mg tablet Take 1 tablet by mouth daily at bedtime. tamsulosin (FLOMAX) 0.4 mg TAKE 2 CAPSULES BY MOUTH EVERY DAY 1/2 HOUR AFTER SAME MEAL EVERY DAY- MAXIMUM 0.8MG DAILY fluticasone-vilanterol (BREO ELLIPTA) 100-25 mcg/dose inhaler Inhale 1 Inhalation as instructed once daily. finasteride (PROSCAR) 5 mg tablet Take 1 tablet by mouth once daily. amLODIPine (NORVASC) 5 mg tablet Take 1 tablet by mouth once daily. doxazosin (CARDURA) 2 mg tablet Take 1 tablet by mouth once daily. lisinopril (ZESTRIL, PRINIVIL) 20 mg tablet Take 1 tablet by mouth once daily. metoprolol succinate ER (TOPROL XL) 25 mg 24 hr tablet Take 1 tablet by mouth twice daily. CPAP AutoPAP 12-20 cmH2O, nasal mask, humidity, filters. Lifetime supplies. Dx: 327.23. Fax compliance rpt to [facility] in 6 weeks. magnesium oxide (MAG-OXIDE ORAL) Take 400 mg by mouth twice daily. metFORMIN ER (GLUCOPHAGE XR) 500 mg 24 hr tablet TAKE 2 TABLETS BY MOUTH TWICE DAILY BEFORE MEALS. flecainide (TAMBOCOR) 100 mg tablet TAKE 1/2 TABLET BY MOUTH TWICE DAILY BIOTIN ORAL Take by mouth. COQ10, LIPOSOMAL UBIQUINOL, ORAL Take by mouth once daily. Take for two weeks then restart statin. multivitamins w-minerals/lut(CENTRUM SILVER TAB) Take one(1) tablet daily. ASPIRIN 81 MG TAB Take one (1) tablet daily . Current Facility-Administered Medications Medication Dose Route Frequency perflutren lipid microspheres 1.3 mL in NaCl (PF) 0.9% 10 mL injection (DEFINITY) INTRAVENOUS DIRECTED PRN sodium chloride 0.9 % (flush) 10 mL (BD POSIFLUSH) 10 mL INTRAVENOUS DIRECTED PRN ALLERGIES: ALLERGIES Allergen Reactions Adhesive Rash Seasonal Allergies Other: See Comments Sneezing and runny nose Dust Mites Naprosyn [Naproxen] GI Upset LABS: UA: Specific [place], Ur Date Value Ref Range Status 01/01/2022 1.019 1.005 - 1.030 Final Glucose, Urine Date Value Ref Range Status 01/01/2022 Negative Negative Final Bilirubin, Urine Date Value Ref Range Status 01/01/2022 Negative Negative Final Ketones, Urine Date Value Ref Range Status 01/01/2022 Negative Negative Final Hemoglobin/Blood,Ur Date Value Ref Range Status 01/01/2022 Negative Negative Final Protein, Urine Date Value Ref Range Status 01/01/2022 1+ (A) Negative Final Nitrites Date Value Ref Range Status 01/01/2022 Negative Negative Final WBC, Urine Date Value Ref Range Status 01/02/2017 0-5 0 - 5 /HPF Final Appointment on 05/03/2022 Component Date Value Ref Range Status Abs Eosin 05/03/2022 0.65 (A) <0.46 k/uL Final Glucose (mg/dL) Date Value 03/27/2022 149 (H) BUN (mg/dL) Date Value 03/27/2022 24 Creatinine (mg/dL) Date Value 03/27/2022 1.29 (H) Sodium (mmol/L) Date Value 03/27/2022 141 Potassium (mmol/L) Date Value 03/27/2022 4.3 Chloride (mmol/L) Date Value 03/27/2022 103 CO2 (mmol/L) Date Value 03/27/2022 26 Protein, Total (g/dL) Date Value 09/18/2021 6.4 Albumin (g/dL) Date Value 09/18/2021 4.1 Calcium, Total (mg/dL) Date Value 03/27/2022 9.3 Alkaline Phosphatase (U/L) Date Value 09/18/2021 57 Bilirubin, Total (mg/dL) Date Value 09/18/2021 0.5 AST (U/L) Date Value 09/18/2021 21 ALT (U/L) Date Value 09/18/2021 17 PT INR (no units) Date Value 09/06/2014 1.0 IMAGING: [facility] 03/22/22: Right Kidney: -Renal length: 10.9 cm -Parenchyma: Normal parenchymal echogenicity. Normal parenchymal thickness. -Collecting system: No hydronephrosis. -Calculus: There appears be a 6 mm calculus in the upper pole. -Lesion: Multiple cysts are visualized, measuring 2.0 x 1.5 x 1.5 cm (mid), 1.1 x 0.8 x 1 5 cm (inferior, with calcification) and 1.4 x 1.1 x 1.0 cm (superior). Left Kidney: -Renal length: 11.6 cm -Parenchyma: Normal parenchymal echogenicity. Normal parenchymal thickness. -Collecting system: No hydronephrosis. -Calculus: There appears be a 4 mm calculus in the interpolar kidney. -Lesion: Multiple cysts are visualized, measuring 2.8 x 2.1 x 2.3 cm (upper pole) and 1.4 x 1.1 x 1.3 cm (inferior, with calcification). Bladder: Partially decompressed. Prevoid volume 83 cc and postvoid volume 31 cc. Others: The prostate is enlarged. REVIEW OF SYSTEMS: GENERAL: No weight loss, malaise or fevers. HEENT: Negative for frequent or significant headaches, No changes in hearing or vision, no nose bleeds or other nasal problems NECK: Negative for goiter, pain or significant neck swelling RESPIRATORY: + BROCK. Negative for cough, hemoptysis, wheezing, COPD, dyspnea or shortness of breath CARDIOVASCULAR: + HTN, HLD, PAF. Negative for chest pain, leg swelling, CHF or palpitations GI: No nausea, vomiting, or diarrhea : No history of dysuria, frequency or incontinence MUSCULOSKELETAL: Negative for joint pain or swelling, back pain or muscle pain SKIN: Negative for lesions, rash, and itching. HEMATOLOGY/LYMPHOLOGY: Negative for prolonged bleeding, bruising easily or swollen nodes. ENDOCRINE: + T2DM. Negative for cold or heat intolerance, polyuria or polydipsia. NEURO: No history of headaches, syncope, paralysis, seizures or tremors The remainder of the review of systems is negative. There were no vitals taken for this visit. There is no height or weight on file to calculate BMI. PHYSICAL EXAMINATION: General appearance: Obese, Well appearing, alert, in no acute distress, and well-hydrated, well nourished ASSESSMENT: Z13.89 Screening for genitourinary condition (primary encounter diagnosis) N20.0 Nephrolithiasis PLAN: - Reviewed US scan(s) - bilateral renal stones, nonobstructing - Discussed surgical and nonsurgical management options, including ESWL, URS, and observation - Patient chooses to proceed with observation - Patient is interested in dietary analysis from 24 hour urine test. Litholink kit ordered and willbe sent to house. - Reviewed general stone prevention guidelines: Proper daytime & night time hydration. We recommend 2.5 - 3 L (80 - 100 oz) of fluid daily. Low sodium diet; < 2000 mg/day. Good fruit & vegetable intake; 5 a day for good citrate intake. Adequate calcium intake; 2-3 servings daily. RTC in 6 weeks with Litholink. I spent a total of 20 minutes on the date of the service which included preparing to see the patient, [id number] patient care, completing clinical documentation, obtaining and/or reviewing separately obtained history, counseling and educating the patient/family/caregiver, ordering medications, dash ts, or procedures, and communicating results to the patient/family/caregiver. Navin Herbert PA-C documented in this encounterOhiohealth [facility]09-08-2022 History of Present illness Narrative* Alice Holt PA-C - 05/03/2022 10:30 AM EDT [facility] [place], 05/03/2022: Name: Bill Reynoso : 1945 The patient is here today with Anju, spouse, who attends the entire visit, exam and discussion. HPI: Bill Reynoso is a 76 yo male never smoker with PMH significant for A Fib, CAD, DM, mitral valve disorder, BROCK on CPAP, hyperlipidemia, HTN, and asthma. The patient is here for follow up of asthma. Since the last Pulmonary Clinic visit 04/02/2022, the patient admits to compliance with prescribed maintenance Rx: Breo 1 inhalation daily and Flonase. There have been no ED visit(s) for the management of asthma exacerbation. No hospitalization(s) for management of asthma exacerbation. Has used no prednisone for the management of exacerbation. Typically does not use rescue bronchodilator. No nocturnal awakenings per month with asthma symptoms, however, notes that he is wheezing at night. Morning cough productive of clear sputum. Exertional dyspnea with bending over. Notices increased allergy symptoms with mowing yard and walking dogs outside. Consistently compliant with CPAP. No disruption in taste or voice associated with use of inhaled corticosteroid. No tremor, palpitations, or muscle cramping associated with bronchodilator inhalation. PMH: Updated with patient today. FAMH: Updated with patient today. SOCH: Updated with patient today. ROS: General: Generally feels well. Appetite good. Eyes, Ears, nose, throat: Post nasal drip, rhinorrhea. No purulent nasal discharge, epistaxis. No hoarseness. Vision stable. Cardiac: No angina, edema, orthopnea. Resp: See HPI. GI: No heartburn, dysphagia. Musculoskeletal: No pain. Neuro: No headache, focal weakness,tremor. Skin: No rash. Otherwise negative. IMMUNIZATIONS Prevnar 13 - 11/29/2014 Pneumovax 23 - 02/03/2016, 09/04/2014, 06/26/2004 Influenza - 06/20/2021 COVID-19 - 11/08/2020, 10/11/2020 Allergies were verified and updated, and medications were reconciled with the patient at this visit. PHYSICAL EXAMINATION: BP (P) 136/86 Pulse (P) 64 Resp (P) 18 Wt 110.2 kg (243 lb) SpO2 (P) 98% BMI 34.87 kg/m Gen: No acute distress. Cooperative with examination. ENT: Nares clear. Oral hygeine good. Pharynx clear. Resp: No stridor, accessory respiratory muscle use. No crackles, wheezes. CV: Regular rythm. Heart tones normal. Radial pulses normal. Abd: Non distended. MSK: No kyphoscoliosis. Ext: Warm and well perfused. No cyanosis. Skin: No rash, eczema, urticaria. Neuro: Mental status normal. No tremor. DATA REVIEW: PFT, 04/02/2022 IMPRESSION: Spirometry shows no obstruction.The reduced FVC suggests restriction. Recommend lung volumes if clinically indicated. Electronically Signed On 04-02-2022 16:21:29 EDT by Alexa Chino MD Exhaled nitric oxide (Dipesh), 05/03/2022: 34 04/02/2022: 68 09/17/2019: 6(normal < 20). CXR, 03/27/2022 IMPRESSION: Stable chest. No acute cardiopulmonary process. EXAM DATE/TIME: 03/27/2022 8:04 AM COMPARISON: Comparison is made to prior chest radiograph dated 04 March 2020, 09 April 2019 and 12 August 2018. RESULT: Lines, tubes, and devices: None. 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 Lingular and bibasilar fibrotic scarring is stable. There is no focal consolidation or acute pleural process. There is no vascular redistribution to suggest pulmonary edema. Cardiomediastinal silhouette: Unchanged cardiomediastinal silhouette with mildly enlarged cardiac silhouette and calcified unfolded descending thoracic aorta. Bones/soft tissues: The bony structures are intact with degenerative change. No bony destructive process noted. Echocardiogram. 04/05/2022 CONCLUSIONS: - Technically difficult exam due to body habitus. - Exam indication: Shortness of Breath - The left ventricle is normal in size. Left ventricular systolic function is normal. EF = 65 5% (2D biplane) Grade I left ventricular diastolic dysfunction. - The right ventricle is normal in size. Right ventricular systolic function is normal. - The left atrial cavity is moderately dilated. - There are no significant valvular abnormalities. - The visualized aorta is dilated with a maximal dimension of 4.1 cm. - Exam was compared with the prior echocardiographic exam performed on 04/26/2017. SSMENT/PLAN: 1. Asthma, late onset, severe persistent, uncomplicated - ICD9: 493.10, ICD10: J45.50 (primary diagnosis) Improved nitric oxide today, but still elevated. Continue Breo 1 inhalation daily. Rinse mouth after each use to help prevent oral thrush. Flonase nasal spray. Start Singulair 1 tablet nightly. Discussed risks and side effects. Check IgE, eosinophil and allergy screen. - IGE BLD - EOSINOPHIL ABS COUNT - [facility] [place] 10 MG TABLET - NITRIC OXIDE, EXHALED 2. BROCK (obstructive sleep apnea) - ICD9: 327.23, ICD10: G47.33 Continue PAP therapy. 3. Allergy, subsequent encounter - ICD9: V58.89, ICD10: T78.40XD See #1. - IGE BLD - EOSINOPHIL ABS COUNT - [facility] [place] 10 MG TABLET - NITRIC OXIDE, EXHALED 4. 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 Alice Holt PA-C documented in this encounterOhiohealth Grady [facility]09-08-2022 Nurse Note* Dafne Fritz LPN - 05/03/2022 10:09 AM EDT Intake information documented in the prior visit with GURJIT De La Paz today. documented in this encounterOhiohealth Grady [facility]09-08-2022 Procedure note* GURJIT De La Paz - 05/03/2022 10:09 AM EDTAssociated Order(s): NITRIC OXIDE, EXHALED RESPIRATORY THERAPY ORAL EXHALED NITRIC OXIDE SERVICE DATE: 05/03/2022 SERVICE TIME: 10:09 AM Oral Exhaled Nitric Oxide measurement: 34.0 (ppb) Normal: Adult 5-20 ppb, pediatric (<12 years) 5-15 ppb High Normal / Increased: Adult 20-35 ppb, pediatric (<12 years) 15-25 ppb Moderately raised exhaled Nitric Oxide may indicate underlying inflammation, but note that: Cold and influenza can raise exhaled Nitric Oxide and some patients have higher baseline exhaled Nitric Oxide levels than others. High: Adult >35 ppb, pediatric (<12 years) >25 ppb Indicative of ongoing eosinophilic inflammation. Symptomatic patient likely to respond to steroids. Possible causes (if already on steroids): Poor compliance, recent allergen exposure, steroid dose inadequate, and steroid resistance. Note that not all patients with high exhaled nitric oxide levels display symptoms. Oral Exhaled Nitric Oxide measurement (Previous Encounters) Test Date Oral Exhaled Nitric Oxide (ppb) 05/03/2022 34.0 04/02/2022 68.0 (A) 09/17/2019 6.0 NAME: GURJIT De La Paz PATIENT NAME: Bill Reynoso DATE: May 03, 2022 TIME: 10:09 AM documented in this encounterOhiohealth [facility]ady [facility]09-08-2022 History of Present illness Narrative* GURJIT De La Paz - 05/03/2022 10:08 AM EDT PULM FUNCTION SMARTBLOCK: Provider: Alice Holt PA-C Assisting Tech: GURJIT De La Paz Exhaled Nitric Oxide: 1 documented in this encounterOhiohealth Grady [facility]08-08-2022 History of Present illness Narrative* Alice Holt PA-C - 04/02/2022 2:30 PM EDT [facility] [place], 04/02/2022: Name: Bill Reynoso : 1945 The patient is here today by himself. HPI: Bill Reynoso is a 76 yo male never smoker with PMH significant for A Fib, CAD, DM, mitral valve disorder, BROCK on CPAP, hyperlipidemia, HTN, and asthma. The patient is here for follow up of asthma. Since the last Pulmonary Clinic visit 12/04/2021, the patient admits to compliance with prescribed maintenance Rx: Breo. There have been no ED visit(s) for the management of asthma exacerbation. No hospitalization(s) for management of asthma exacerbation. Has used no prednisone for the management of exacerbation. Over the weekend used a couple of times rescue bronchodilator use, with some relief. No nocturnal awakenings per month with asthma symptoms. Morning cough with brownish/green sputum. No hemoptysis. Chest tightness, primarily in the morning. Audible wheezing from spouse and previous providers. Notes dyspnea with talking or bending over. No issues with climbing stairs or working in the yard. No lower extremity edema. Sleeps in a sleep number bed, increased to 4-5 inches with 1 pillow. No disruption in taste or voice associated with use of inhaled corticosteroid. No tremor, palpitations, or muscle cramping associated with bronchodilator inhalation. Consistently compliant with CPAP. Just recently received device from being recalled. PMH: Updated with patient today. FAMH: Updated with patient today. SOCH: Updated with patient today. IMMUNIZATIONS Prevnar - 11/29/2014 Pneumovax - 02/03/2016, 09/04/2014, 06/26/2004 Influenza - 06/20/2021 COVID-19 - 11/08/2020, 10/11/2020 ROS: General: Generally feels well. Appetite good. Eyes, Ears, nose, throat: Post nasal drip, rhinorrhea. No purulent nasal discharge, epistaxis. No hoarseness. Vision stable. Cardiac: No angina. See HPI. Resp: See HPI. GI: No heartburn, dysphagia. Musculoskeletal: No pain. Neuro: No headache, focal weakness, tremor. Skin: No rash. Otherwise negative. Allergies were verified and updated, and medications were reconciled with the patient at this visit. PHYSICAL EXAMINATION: BP (P) 128/78 Pulse 63 Resp 12 Ht 177.8 cm (5' 10 ) Wt 108.9 kg (240 lb) SpO2 93% BMI 34.44 kg/m Gen: No acute distress. Cooperative with examination. ENT: Nares clear. Oral hygeine good. Pharynx clear. No sign of oral thrush. Resp: No stridor, accessory respiratory muscle use. No crackles, wheezes. CV: Regular rythm. Heart tones normal. Radial pulses normal. Abd: Non distended. MSK: No kyphoscoliosis. Ext: Warm and well perfused. No cyanosis. Skin: No rash, eczema, urticaria. Neuro: Mental status normal. No tremor. DATA REVIEW: DATE: 04/02/2022 09/17/2019 10/21/2015 FVC 2.10, 51% 2.78, 66% 2.40, 53% FEV1 1.75, 57% 2.35, 74% 1.94, 57% FEV1/FVC 0.83 0.84 0.81 Exhaled nitric oxide (Dipesh), 04/02/2022: 68 (normal < 20). 11/25/2015: 13 11/06/2011 Methacholine Inhalation Challenge: 34% drop in FEV1 at level 5, reverses with inhaled bronchodilator. CXR, 03/27/2022 IMPRESSION: Stable chest. No acute cardiopulmonary process. EXAM DATE/TIME: 03/27/2022 8:04 AM COMPARISON: Comparison is made to prior chest radiograph dated 04 March 2020, 09 April 2019 and 12 August 2018. RESULT: Lines, tubes, and devices: None. 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 Lingular and bibasilar fibrotic scarring is stable. There is no focal consolidation or acute pleural process. There is no vascular redistribution to suggest pulmonary edema. Cardiomediastinal silhouette: Unchanged cardiomediastinal silhouette with mildly enlarged cardiac silhouette and calcified unfolded descending thoracic aorta. Bones/soft tissues: The bony structures are intact with degenerative change. No bony destructive process noted. ASSESSMENT/PLAN: 1. Asthma, late onset, severe persistent, uncomplicated - ICD9: 493.10, ICD10: J45.50 (primary diagnosis) Moderate persistent Asthma less than well controlled. - Continue Breo 1 inhalation daily. Rinse mouth after each use to help prevent oral thrush. - Begin steriod nasal spray Flonase QHS - Albuterol MDI 2 puffs with spacer prn and before exertional activities - Avoidance of triggers recommended - Flu shot in the fall recommended - NITRIC OXIDE, EXHALED 2. BROCK (obstructive sleep apnea) - ICD9: 327.23, ICD10: G47.33 Continue to wear CPAP with all sleep. 3. Allergy, subsequent encounter - ICD9: V58.89, ICD10: T78.40XD See #1. - FLUTICASONE PROPIONATE 50 MCG/ACTUATION NASAL SPRAY,SUSPENSION 4. Post-nasal drip - ICD9: 784.91, ICD10: R09.82 See #1 - FLUTICASONE PROPIONATE 50 MCG/ACTUATION NASAL SPRAY,SUSPENSION 5. Dyspnea and respiratory abnormalities - ICD9: 786.09, ICD10: R06.00, R06.89 Last echo in 2017. Will obtain updated echo. - ECHO - PERFLUTREN LIPID MICROSPHERES 1.1 MG/ML INJECTION IN NS 10 ML - SODIUM CHLORIDE 0.9 % (FLUSH) INJECTION SYRINGE 6. 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 Alice Holt PA-C documented in this encounterOhiohealth [facility]08-08-2022 Nurse Note* Dafne Fritz LPN - 04/02/2022 1:53 PM EDT Intake information documented in the prior visit with GURJIT De La Paz today. documented in this encounterOhiohealth Grady [facility]08-02-2022 History of Present illness Narrative* RT Jay(Erlin) - 03/27/2022 8:00 AM EDT Radiology Service Progress Note PATIENT NAME: Bill Reynoso DATE OF SERVICE: March 27, 2022 TIME: 7:57 AM PATIENT IDENTITY VERIFICATION COMPLETED USING TWO (2) IDENTIFIERS: Name and Date of confirmedby patient verbally. FALL SCREENING: Has the patient had 2 falls in the last year or 1 fall with injury or currently using an Ambulatory Assistive Device (Walker, Cane, Wheelchair, Crutches, etc.)? No PATIENT GENDER DATA: Male PATIENT RELEVANT IMPLANT DATA REVIEWED: Not Applicable RADIOLOGY DEPARTMENT: General X-ray: Exam(s) Completed: Chest X-Ray PERIPHERAL IV DATA: Not applicable SIGNED BY: RT Jay(R) March 27, 2022 7:57 AM documented in this encounterOhiohealth Grady [facility]07-29-2022 Miscellaneous Notes* Telephone Encounter - ALBERT Moran - 03/23/2022 2:39 PM EDT Called patient to discuss US results, US shows bilateral renal calculi, Dr. Tyler recommends patient to see our stones team. Airam Cardenas PA-C documented in this encounterOhiohealth Grady [facility]07-28-2022 History of Present illness Narrative* RT Hillary(R) - 03/22/2022 11:30 AM EDT Radiology Service Progress Note PATIENT NAME: Bill Reynoso DATE OF SERVICE: March 22, 2022 TIME: 12:02 PM PATIENT IDENTITY VERIFICATION COMPLETED USING TWO (2) IDENTIFIERS: Name and Date of confirmedby patient verbally. FALL SCREENING: Has the patient had 2 falls in the last year or 1 fall with injury or currently using an Ambulatory Assistive Device (Walker, Cane, Wheelchair, Crutches, etc.)? No PATIENT GENDER DATA: Male PATIENT RELEVANT IMPLANT DATA REVIEWED: Not Applicable RADIOLOGY DEPARTMENT: Ultrasound PERIPHERAL IV DATA: Not applicable SIGNED BY: RT Hillary(R) March 22, 2022 12:02 PM documented in this encounterOhiohealth Grady [facility]07-19-2022 Miscellaneous Notes* Telephone Encounter - Anju Velazquez LPN - 03/13/2022 5:04 PM EDT Noted. Anju Velazquez LPN * Telephone Encounter - Jo Woods MD - 03/13/2022 4:55 PM EDT ordered * Telephone Encounter - Anju Velazquez LPN - 03/13/2022 9:12 AM EDT Patient is needing new lab orders: PSA,Hem A1C, Albumin/creat ratio urine Patient will be in tomorrow morning to complete Orders pending documented in this encounterOhiohealth Grady [facility] Hospital07-18-2022 Miscellaneous Notes* Telephone Encounter - Anju Velazquez LPN - 03/12/2022 12:55 PM EDT Patient has been identified by name and date of : Yes Patient phones for refill(s): Pending Prescriptions Disp Refills PRAVASTATIN 40 MG TABLET 90 tablet 3 Sig: Take 1 tablet by mouth daily at bedtime. MEETA: No Date of last office visit in primary care: 10/16/21 Last 2 Encounter Wt Readings: Date: Wt: 01/02/2022 110.7 kg (244 lb) 12/04/2021 109.8 kg (242 lb) Previous labs/tests for medication: Cholesterol: HDL Cholesterol (mg/dL) Date Value 09/18/2021 58 LDL Cholesterol (mg/dL) Date Value 09/18/2021 67 ALT (U/L) Date Value 09/18/2021 17 Non HDL Cholesterol (mg/dL) Date Value 09/18/2021 82 Please advise. Thank you. Anju Velazquez LPN documented in this encounterOhiohealth Grady [facility]06-02-2022 Miscellaneous Notes* Telephone Encounter - Maria Del Carmen Duron LPN - 01/25/2022 1:02 PM EDT Patient's request for medication is as follows: Pending Prescriptions Disp Refills BREO ELLIPTA 100 MCG-25 MCG/DOSE POWDER FOR INHALATION 180 Each 3 Sig: INHALE ONE INHALATION BY MOUTH INSTRUCTED ONCE DAILY MEETA: No RUBI: 12/04/2021 Please approve the above prescription(s) to electronically send to pharmacy. Maria Del Carmen Duron LPN documented in this encounterOhiohealth Grady [facility]05-17-2022 Miscellaneous Notes* Telephone Encounter - Fiona Crockett LPN - 01/09/2022 2:25 PM EDT Patient has been identified by name and date of : Yes Pharmacy phones for refill(s): Pending Prescriptions Disp Refills FINASTERIDE 5 MG TABLET 90 tablet 3 Sig: Take 1 tablet by mouth once daily. MEETA: No Date of last office visit in primary care: 09/22/21 Please advise. Thank you. Fiona Crockett LPN documented in this encounterOhiohealth Grady [facility] Hospital05-10-2022 NoteHNO ID: [id number] Author: Carli Hilton MD Service: ? Author Type: Physician Type: Progress Notes Filed: 01/02/2022 5:18 PM Note Text: [facility] Cardiology ([facility] [address] [facility] [id number] OUTPATIENT VISIT DATE 01/02/2022 PRIMARY CARE PHYSICIAN: JO WOODS MD [address] [place] [address] HISTORY OF PRESENT ILLNESS: Mr. Reynoso is a 76 year old gentleman with a history of paroxysmal atrial fibrillation, hypertension, dyslipidemia, diabetes ([id number]), obstructive sleep apnea and chronic kidney disease with a baseline creatinine 1.6 who is here for follow-up after medication adjustment. He was started on increased dose of amlodipine 10 mg daily. Unfortunately, he developed swelling in his lower extremities. He has not had symptoms of atrial fibrillation since his last office visit. He has had a fall resulting in significant bruising in his right upper extremity. He has been compliant with his CPAP for his obstructive sleep apnea. He has not had symptoms concerning for CHF including PND or orthopnea. PAST MEDICAL HISTORY Diagnosis Date - Anal fistula - Arrhythmia - Asthma - Atrial fibrillation (HCC) - Benign neoplasm of colon - Cancer (HCC) - Coronary artery disease - Diabetes mellitus - Diaphragm paralysis - Elevated prostate specific antigen (PSA) 11/22/2014 - Family history of malignant neoplasm of gastrointestinal tract - History of tear of ACL (anterior cruciate ligament) 1990 right knee - Internal hemorrhoids without mention of complication - Mitral valve disorders(424.0) - Obstructive sleep apnea - Other and unspecified hyperlipidemia - Other symptoms involving digestive system(787.99) - Personal history of colonic polyps - Personal history of colonic polyps Colon polyps - Snoring - Type II or unspecified type diabetes mellitus without mention of complication, not stated as uncontrolled - Unspecified essential hypertension PAST SURGICAL HISTORY Procedure Laterality Date - ADENOIDECTOMY PRIMARY Adenoidectomy - CATARACT EXTRACTION HX Bilateral - COLONOSCOPY FLX DX W/COLLJ SPEC WHEN PFRMD 12/21/2002 Colonoscopy - COLONOSCOPY FLX DX W/COLLJ SPEC WHEN PFRMD 05/08/2007 Colonoscopy - COLONOSCOPY FLX DX W/COLLJ SPEC WHEN PFRMD 06/05/2010 - COLONOSCOPY FLX DX W/COLLJ SPEC WHEN PFRMD 09/07/2013 Repeat 4 years for screening - COLONOSCOPY FLX DX W/COLLJ SPEC WHEN PFRMD 11/11/2017 Colonoscopy - ESOPHAGOGASTRODUODENOSCOPY TRANSORAL DIAGNOSTIC 05/08/2007 EGD - PAST SURGICAL HISTORY OF anal fissurectomy - REMV CATARACT EXTRACAP,INSERT LENS - SIGMOIDOSCOPY FLX DX W/COLLJ SPEC BR/WA IF PFRMD 08/01/2004 Sigmoidoscopy - TONSILLECTOMY PRIMARY/SECONDARY Tonsillectomy SOCIAL HISTORY Social History Tobacco Use - Smoking status: Never Smoker - Smokeless tobacco: Never Used - Tobacco comment: No one in household smokes. Vaping Use - Vaping Use: Never used Substance Use Topics - Alcohol use: Yes Alcohol/week: 2.5 - 5.0 standard drinks Types: 1 - 2 Cans of Beer (12oz) per week Comment: once every 2 weeks - Drug use: No FAMILY HISTORY Problem Relation Age of Onset - Colon Cancer Mother - Hypertension Mother - Cancer Father Prostate - Hypertension Father - Colon Cancer Sister - Breast Cancer Sister ALLERGIES: ALLERGIES Allergen Reactions - Adhesive Rash - Seasonal Allergies Other: See Comments Sneezing and runny nose - Dust Mites - Naprosyn [Naproxen] GI Upset MEDICATIONS: amLODIPine (NORVASC) 5 mg tablet Take 1 tablet by mouth once daily. lisinopril (ZESTRIL, PRINIVIL) 20 mg tablet Take 1 tablet by mouth once daily. metoprolol succinate ER (TOPROL XL) 25 mg 24 hr tablet Take 1 tablet by mouth twice daily. CPAP AutoPAP 12-20 cmH2O, nasal mask, humidity, filters. Lifetime supplies. Dx: 327.23. Fax compliance rpt to [facility] in 6 weeks. blood sugar diagnostic (ACCU-CHEK THIAGO PLUS TEST STRP) test strip Test blood sugar once daily magnesium oxide (MAG-OXIDE ORAL) Take 400 mg by mouth twice daily. finasteride (PROSCAR) 5 mg tablet Take 1 tablet by mouth once daily. metFORMIN ER (GLUCOPHAGE XR) 500 mg 24 hr tablet TAKE 2 TABLETS BY MOUTH TWICE DAILY BEFORE MEALS. flecainide (TAMBOCOR) 100 mg tablet TAKE 1/2 TABLET BY MOUTH TWICE DAILY pravastatin (PRAVACHOL) 40 mg tablet Take 1 tablet by mouth daily at bedtime. albuterol HFA (VENTOLIN HFA) 90 mcg/actuation inhaler Inhale 2 Puffs as instructed every 4 hours as needed for wheezing/shortness of breath. tamsulosin (FLOMAX) 0.4 mg TAKE 2 CAPSULES BY MOUTH EVERY DAY 1/2 HOUR AFTER SAME MEAL EVERY DAY- MAXIMUM 0.8MG DAILY fluticasone-vilanterol (BREO ELLIPTA) 100-25 mcg/dose inhaler INHALE ONE INHALATION BY MOUTH INSTRUCTED ONCE DAILY BIOTIN ORAL Take by mouth. (more content not included)...[facility]05-10-2022 Instructions* Patient Instructions* Carli Hilton MD - 01/02/2022 3:19 PM EDT We are decreasing the Amlodipine to 5 mg We are starting you on Doxazosin 1mg at bedtime for one month then increase to 2 mg at bedtime We are stopping the Eliquis documented in this encounterOhiohealth Grady [facility] Hospital05-10-2022 History of Present illness Narrative* Carli Hilton MD - 01/02/2022 3:00 PM EDT Images from the original note were not included. [facility] SE[facility] OF [facility] Cardiology ([facility])) [address] [id number] OUTPATIENT VISIT DATE 01/02/2022 PRIMARY CARE PHYSICIAN: JO WOODS MD [address] [place] [address] HISTORY OF PRESENT ILLNESS: Mr. Reynoso is a 76 year old gentleman with a history of paroxysmal atrial fibrillation, hypertension, dyslipidemia, diabetes ([id number]), obstructive sleep apnea and chronic kidney disease with a baseline creatinine 1.6 who is here for follow-up after medication adjustment. He was started on increased dose of amlodipine 10 mg daily. Unfortunately, he developed swelling in his lowerextremities. He has not had symptoms of atrial fibrillation since his last office visit. He has hada fall resulting in significant bruising in his right upper extremity. He has been compliant with his CPAP for his obstructive sleep apnea. He has not had symptoms concerning for CHF including PND or orthopnea. PAST MEDICAL HISTORY Diagnosis Date Anal fistula Arrhythmia Asthma Atrial fibrillation (HCC) Benign neoplasm of colon Cancer (HCC) Coronary artery disease Diabetes mellitus Diaphragm paralysis Elevated prostate specific antigen (PSA) 11/22/2014 Family history of malignant neoplasm of gastrointestinal tract History of tear of ACL (anterior cruciate ligament) 1989 right knee Internal hemorrhoids without mention of complication Mitral valve disorders(424.0) Obstructive sleep apnea Other and unspecified hyperlipidemia Other symptoms involving digestive system(787.99) Personal history of colonic polyps Personal history of colonic polyps Colon polyps Snoring Type II or unspecified type diabetes mellitus without mention of complication, not stated as uncontrolled Unspecified essential hypertension PAST SURGICAL HISTORY Procedure Laterality Date ADENOIDECTOMY PRIMARY <AGE 14 Adenoidectomy CATARACT EXTRACTION HX Bilateral COLONOSCOPY FLX DX W/COLLJ SPEC WHEN PFRMD 12/21/2002 Colonoscopy COLONOSCOPY FLX DX W/COLLJ SPEC WHEN PFRMD 05/08/2007 Colonoscopy COLONOSCOPY FLX DX W/COLLJ SPEC WHEN PFRMD 06/05/2010 COLONOSCOPY FLX DX W/COLLJ SPEC WHEN PFRMD 09/07/2013 Repeat 4 years for screening COLONOSCOPY FLX DX W/COLLJ SPEC WHEN PFRMD 11/11/2017 Colonoscopy ESOPHAGOGASTRODUODENOSCOPY TRANSORAL DIAGNOSTIC 05/08/2007 EGD PAST SURGICAL HISTORY OF anal fissurectomy REMV CATARACT EXTRACAP,INSERT LENS SIGMOIDOSCOPY FLX DX W/COLLJ SPEC BR/WA IF PFRMD 08/01/2004 Sigmoidoscopy TONSILLECTOMY PRIMARY/SECONDARY <AGE 14 Tonsillectomy SOCIAL HISTORY Social History Tobacco Use Smoking status: Never Smoker Smokeless tobacco: Never Used Tobacco comment: No one in household smokes. Vaping Use Vaping Use: Never used Substance Use Topics Alcohol use: Yes Alcohol/week: 2.5 - 5.0 standard drinks Types: 1 - 2 Cans of Beer (12oz) per week Comment: once every 2 weeks Drug use: No FAMILY HISTORY Problem Relation Age of Onset Colon Cancer Mother Hypertension Mother Cancer Father Prostate Hypertension Father Colon Cancer Sister Breast Cancer Sister ALLERGIES: ALLERGIES Allergen Reactions Adhesive Rash Seasonal Allergies Other: See Comments Sneezing and runny nose Dust Mites Naprosyn [Naproxen] GI Upset MEDICATIONS: amLODIPine (NORVASC) 5 mg tablet Take 1 tablet by mouth once daily. lisinopril (ZESTRIL, PRINIVIL) 20 mg tablet Take 1 tablet by mouth once daily. metoprolol succinate ER (TOPROL XL) 25 mg 24 hr tablet Take 1 tablet by mouth twice daily. CPAP AutoPAP 12-20 cmH2O, nasal mask, humidity, filters. Lifetime supplies. Dx: 327.23. Fax compliance rpt to [place] in 6 weeks. blood sugar diagnostic (ACCU-CHEK THIAGO PLUS TEST STRP) test strip Test blood sugar once daily magnesium oxide (MAG-OXIDE ORAL) Take 400 mg by mouth twice daily. finasteride (PROSCAR) 5 mg tablet Take 1 tablet by mouth once daily. metFORMIN ER (GLUCOPHAGE XR) 500 mg 24 hr tablet TAKE 2 TABLETS BY MOUTH TWICE DAILY BEFORE MEALS. flecainide (TAMBOCOR) 100 mg tablet TAKE 1/2 TABLET BY MOUTH TWICE DAILY pravastatin (PRAVACHOL) 40 mg tablet Take 1 tablet by mouth daily at bedtime. albuterol HFA (VENTOLIN HFA) 90 mcg/actuation inhaler Inhale 2 Puffs as instructed every 4 hours asneeded for wheezing/shortness of breath. tamsulosin (FLOMAX) 0.4 mg TAKE 2 CAPSULES BY MOUTH EVERY DAY 1/2 HOUR AFTER SAME MEAL EVERY DAY- MAXIMUM 0.8MG DAILY fluticasone-vilanterol (BREO ELLIPTA) 100-25 mcg/dose inhaler INHALE ONE INHALATION BY MOUTH INSTRUCTED ONCE DAILY BIOTIN ORAL Take by mouth. COQ10, LIPOSOMAL UBIQUINOL, ORAL Take by mouth once daily. Take for two weeks then restart statin. multivitamins w-minerals/lut(CENTRUM SILVER TAB) Take one(1) tablet daily. ASPIRIN 81 MG TAB Take one (1) tablet daily . doxazosin (CARDURA) 1 mg tablet Take 1 tablet by mouth daily at bedtime. [START ON 02/02/2022] doxazosin (CARDURA) 2 mg tablet Take 1 tablet by mouth once daily. REVIEW OF SYSTEMS: Review of Systems Constitutional: Negative for chills, fever, malaise/fatigue and weight loss. HENT: Negative for hearing loss and sore throat. Eyes: Negative for blurred vision and double vision. Respiratory: Negative. Cardiovascular: Negative. Gastrointestinal: Negative. Genitourinary: Negative for dysuria, frequency, hematuria and urgency. Musculoskeletal: Negative. Skin: Negative. Neurological: Negative for dizziness, seizures, loss of consciousness, weakness and headaches. Endo/Heme/Allergies: Negative for environmental allergies. Does not bruise/bleed easily. Psychiatric/Behavioral: Negative for depression. PHYSICAL EXAMINATION: BP 148/82 (BP Site: Left Arm, BP Position: Sitting, BP Cuff Size: Large Adult) Pulse (!) 58 Ht 5' 10 (1.778 m) Wt 244 lb (110.7 kg) SpO2 94% BMI 35.01 kg/m General: Pleasant gentleman sitting appears comfortable and in no apparent distress. HEENT: Carotid upstrokes are brisk bilateral without bruits. No JVD appreciated. Pulmonary: Lungs are clear no rales, wheezes, rhonchi. Cardiovascular: Normal S1-S2 with a regular rate and rhythm. No murmurs, rubs, or gallops appreciated. Extremities: Warm, well-perfused, 1-2+ nonpitting edema lower extremities bilaterally CARDIOVASCULAR MEDICINE TESTING: Treadmill Myoview Stress 09/12/20 STRESS ECG SUMMARY: The patient's resting heart rate was 71 bpm and blood pressure was 160/92 mmHg. The patient exercised according to the Modified Mo protocol. Total exercise time was 14 minutes and 50 seconds. The maximum heart rate was 133 bpm, which is 90%predicted for age. METs achieved was 10.4. The double product achieved was [address]. Peak heart rate was 133 bpm and peak blood pressure was 180/98 mmHg. CONCLUSIONS: 1. SPECT Perfusion Study: Normal. 2. There is no scintigraphic evidence for inducible ischemia. 3. No evidence of scarred myocardium. 4. Left ventricle is normal in size. The left ventricle systolic function is normal. 5. Right ventricle is normal in size. 6. This is a low risk scan. Gated Stress FBP LVEF % 58 Zio Patch Monitor 08/29/20-09/12/20 Preliminary Findings Patient had a min HR of 43 bpm, max HR of 174 bpm, and avg HR of 56 bpm. Predominant underlying rhythm was Sinus Rhythm. 31 Supraventricular Tachycardiaruns occurred, the run with the fastest interval lasting 13 beats with a max rate of174 bpm, the longest lasting 20 beats with an avg rate of 112 bpm. Some episodesof Supraventricular Tachycardia may be possible Atrial Ta chycardia with variableblock. Idioventricular Rhythm was present. Isolated SVEs were rare (<1.0%), SVECouplets were rare (<1.0%), and SVE Triplets were rare (<1.0%). Isolated VEs wereoccasional (3.3%, 56481), VE Couplets were rare (<1.0%, 2532), and VE Triplets were rare (<1.0%, 16). Ventricular Bigeminy and Trigeminy were present. Echocardiogram 04/26/17: CONCLUSIONS: - Technically difficult exam due to body habitus. - Exam indication: Atrial fibrillation - The left ventricle is normal in size. There is moderate concentric left ventricular hypertrophy. Left ventricular systolic function is normal. EF = 60 5% (visual est.) Grade I left ventricular diastolic dysfunction. - The right ventricle is normal in size. Right ventricular systolic function is normal. - The left atrial cavity is moderately dilated. - Mild MR - Moderate AV sclerosis. - Exam was compared with the prior echocardiographic exam performed on 04/19/2015 (Stress). No significant change. IMPRESSION: Mr. Reynoso is a 76 year old gentleman with a history of paroxysmal atrial fibrillation who has been maintained on flecainide for many years. Recent episode of breakthrough atrial fibrillation likely secondary to his noncompliance with CPAP. He is also treated for hypertension and dyslipidemia. He presents to the office for earlier follow-up due to the development of lower extremity edema on increased dose of amlodipine only. PLAN AND RECOMMENDATIONS: 1. PAF (paroxysmal atrial fibrillation) (HCC) - ICD9: 427.31, ICD10: I48.0 (primary diagnosis) Patient has symptomatic paroxysmal atrial fibrillation. He has not had recurrent symptoms since he has been compliant with his CPAP. We discussed risks and benefits of being on Eliquis. Patient like to go off Eliquis. If he has recurrent atrial fibrillation we will consider reinitiation of anticoagulation therapy. He will resume aspirin 81 mg daily. 2. PVC (premature ventricular contraction) - ICD9: 427.69, ICD10: I49.3 3. Essential hypertension - ICD9: 401.9, ICD10: I10 Plan to decrease the dose of amlodipine to 5 mg daily. Initiation of treatment with doxazosin. We will start 1 mg nightly for 1 month and then increase to 2 mg nightly. Plan to titrate as needed for control of his hypertension. Risks and benefits of treatment were discussed with the patient and hiswife Immunocal. - AMLODIPINE 5 MG TABLET - DOXAZOSIN 1 MG TABLET - DOXAZOSIN 2 MG TABLET 4. Hyperlipidemia, unspecified hyperlipidemia type - ICD9: 272.4, ICD10: E78.5 Maintained on pravastatin 40 mg daily. Fasting blood work from August 2019 was reviewed. LDL cholesterol 67 mg/dL 5. BROCK (obstructive sleep apnea) - ICD9: 327.23, ICD10: G47.33 Carli Hilton MD documented in this encounterOhio[facility]05-10-2022 Nurse Note* Gillian Bowens MA - 01/02/2022 2:53 PM EDT No concerns today. 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 Pt had pancreatitis, had imaging, CT showed pancreatitis resolved MRI 04/07: 1.3 hemorrhagic cysto R upper pole, B2F, 1.2 cm B2F, hemorrhagic cyst upper pole on L too I reviwed and cysts are complex but not susp RCC, agree with B2f Voids well on flomax, Afib (no AC), HTN, DM, Mitral valve hypertrophy, sleep apnea, anal fistula, CAD On LD ASA, COPD 11/06: CT with 1 cm B2 lesions in each kidney, no change, I reviewed agreed, we see in 12 mo with US Will stay on flomax, PCP follows for psa, cult neg 12/06: consider adding proscar 01/06: apparently US shows mass R upper pole up to 2 cm, we see with CT in February or April 01: SCr 1.43, eGFR 49, CT all stable, B2 cysts, we see in 12 mo with bmp and US 12/09: US all stable or improved, no susp lesions, SCr 1.38, eGFR 51, psa 1.64, shelley fine, we see 2 yrs with 10/12: mild orchalgia, US testes neg, althouh B varicoceles, will Rx NSAI, RTC 2 yrs with US kidneysand psa 02/10, doing well, no testicular pain, shelley fine, psa 1.69, US neg 10/15: increased LUTS with decreased flow, feelings of incomplete emptying, and urgency Advised double dose of flomax to 0.8, renal US with mildly complex R renal cyst increased in size to 2.3 cm, b/l renal calculi, BPH and bladder wall thickening, PVR 63 cc, no hydro 02/13: renal US 09/29/20 with b/l nonobs renal calcifications, R renal cysts, enlarged prostate. PSA 1.79, 23% free (12/29/20) The above represents a brief summary of the patient's history as of the last clinic visit or hospitalization. Interim history: Recent radiographic studies: None Recent Recent labs: 01/13 PSA: 1.79, 09/16 Scr 1.29, eGFR >60 Clinical status: stable, no change, doing better Voiding status and ROS: voids well, no gross hematuria Recently having bad odor but non related to the Hygine On Eliquis for A-fib Reason for today's visit: f/u Renal Cysts and Bad odor ASSESSMENT & PLAN I saw and examined in detail, and discussed with resident, and agree with essential components of Hx, PE and A/P. Briefly, This is a 76 year old male who presented today in the clinic for follow up of: renal cysts SHELLEY fine On Flomax 0.8 and Finasteride On Eliquis for A-fib SHELLEY fine Plan: I spent a total of minutes on the date of the service which included preparing to see the patient, [id number] patient care, completing clinical documentation and counseling and educating the patient/family/caregiver. Check PVR, 76 cc Having PV dribbling, small amounts, we discussed to some extnet age related RTC 12 mo with repeat PSA and US Double Voiding was advised Naveed Tyler MD DATA REVIEW IMAGING None Recent LABS PSA (ng/mL) Date Value 12/29/2020 1.79 09/24/2019 1.91 02/19/2018 1.69 12/08/2015 1.64 Creatinine Date Value Ref Range Status 09/18/2021 1.29 (H) 0.73 - 1.22 mg/dL Final 09/02/2020 1.25 (H) 0.73 - 1.22 mg/dL Final 03/04/2020 1.63 (H) 0.73 - 1.22 mg/dL Final 02/23/2020 1.43 (H) 0.73 - 1.22 mg/dL Final PAST MEDICAL HISTORY/COMORBIDITIES PAST MEDICAL HISTORY Diagnosis Date Anal fistula Arrhythmia Asthma Atrial fibrillation (HCC) Benign neoplasm of colon Cancer (HCC) Coronary artery disease Diabetes mellitus Diaphragm paralysis Elevated prostate specific antigen (PSA) 11/22/2014 Family history of malignant neoplasm of gastrointestinal tract History of tear of ACL (anterior cruciate ligament) 1989 right knee Internal hemorrhoids without mention of complication Mitral valve disorders(424.0) Obstructive sleep apnea Other and unspecified hyperlipidemia Other symptoms involving digestive system(787.99) Personal history of colonic polyps Personal history of colonic polyps Colon polyps Snoring Type II or unspecified type diabetes mellitus without mention of complication, not stated as uncontrolled Unspecified essential hypertension PAST SURGICAL HISTORY Procedure Laterality Date ADENOIDECTOMY PRIMARY <AGE 14 Adenoidectomy CATARACT EXTRACTION HX Bilateral COLONOSCOPY FLX DX W/COLLJ SPEC WHEN PFRMD 12/21/2002 Colonoscopy COLONOSCOPY FLX DX W/COLLJ SPEC WHEN PFRMD 05/08/2007 Colonoscopy COLONOSCOPY FLX DX W/COLLJ SPEC WHEN PFRMD 06/05/2010 COLONOSCOPY FLX DX W/COLLJ SPEC WHEN PFRMD 09/07/2013 Repeat 4 years for screening COLONOSCOPY FLX DX W/COLLJ SPEC WHEN PFRMD 11/11/2017 Colonoscopy ESOPHAGOGASTRODUODENOSCOPY TRANSORAL DIAGNOSTIC 05/08/2007 EGD PAST SURGICAL HISTORY OF anal fissurectomy REMV CATARACT EXTRACAP,INSERT LENS SIGMOIDOSCOPY FLX DX W/COLLJ SPEC BR/WA IF PFRMD 08/01/2004 Sigmoidoscopy TONSILLECTOMY PRIMARY/SECONDARY <AGE 14 Tonsillectomy Current Outpatient Medications Medication Sig lisinopril (ZESTRIL, PRINIVIL) 20 mg tablet Take 1 tablet by mouth once daily. metoprolol succinate ER (TOPROL XL) 25 mg 24 hr tablet Take 1 tablet by mouth twice daily. amLODIPine (NORVASC) 10 mg tablet Take 1 tablet by mouth once daily. CPAP AutoPAP 12-20 cmH2O, nasal mask, humidity, filters. Lifetime supplies. Dx: 327.23. Fax compliance rpt to [facility] in 6 weeks. blood sugar diagnostic (ACCU-CHEK THIAGO PLUS TEST STRP) test strip Test blood sugar once daily apixaban (ELIQUIS) 5 mg tab(s) Take 1 tablet by mouth twice daily. magnesium oxide (MAG-OXIDE ORAL) Take 400 mg by mouth twice daily. finasteride (PROSCAR) 5 mg tablet Take 1 tablet by mouth once daily. metFORMIN ER (GLUCOPHAGE XR) 500 mg 24 hr tablet TAKE 2 TABLETS BY MOUTH TWICE DAILY BEFORE MEALS. flecainide (TAMBOCOR) 100 mg tablet TAKE 1/2 TABLET BY MOUTH TWICE DAILY pravastatin (PRAVACHOL) 40 mg tablet Take 1 tablet by mouth daily at bedtime. albuterol HFA (VENTOLIN HFA) 90 mcg/actuation inhaler Inhale 2 Puffs as instructed every 4 hours asneeded for wheezing/shortness of breath. tamsulosin (FLOMAX) 0.4 mg TAKE 2 CAPSULES BY MOUTH EVERY DAY 1/2 HOUR AFTER SAME MEAL EVERY DAY- MAXIMUM 0.8MG DAILY fluticasone-vilanterol (BREO ELLIPTA) 100-25 mcg/dose inhaler INHALE ONE INHALATION BY MOUTH INSTRUCTED ONCE DAILY BIOTIN ORAL Take by mouth. COQ10, LIPOSOMAL UBIQUINOL, ORAL Take by mouth once daily. Take for two weeks then restart statin. multivitamins w-minerals/lut(CENTRUM SILVER TAB) Take one(1) tablet daily. ASPIRIN 81 MG TAB Take one (1) tablet daily . No current facility-administered medications for this visit. No changes. REVIEW OF SYSTEMS CONSTITUTIONAL: No fevers, chills, nightsweats, unintended weight loss GI: No dysphagia/odynophagia, problematic reflux, constipation, diarrhea, changes in stool habits, hematochezia, melena. : No new urinary complaints, including dysuria, gross hematuria or pyuria. INTEGUMENTARY: No new skin changes (rash, new or changing mole, new growth) All other systems were reviewed and are negative. PHYSICAL EXAM General: Well appearing, alert, in no acute distress, well-hydrated, well nourished ENT: Moist mucous membranes. Cardiovascular: Well perfused Respiratory: No respiratory distress Abdomen: Non-distended GENITOURINARY: No testicular mass or tenderness, varicocele, penile lesions, urethral mass. and No urethra or vulva mass/lesion. Normal cervical/vaginal speculum exam. No uterine/adnexal mass. No cystocele/rectocele/prolapse. Skin: Skin color, texture, turgor normal, no suspicious rashes or lesions Neurological: Normal speech. Extremities: Extremities normal. No deformities, edema, or skin discoloration SHELLEY: Normal Scribe Attestation: By signing my name below, I, Efrain Mckeon, attest that this documentation has been prepared under the direction and in the presence of Dr. Naveed Tyler MD. Electronically Signed:malia Perez, January 01, 2022 8:30 AM Provider Attestation: I, Naveed Tyler MD, personally performed the services described in this documentation. All medical record entries made by the pradipibxiomara were at my direction and in my presence. I have reviewed thechart and discharge instructions (if applicable) and agree that the record reflects my personal perf ormance and is accurate and complete. Naveed Tyler MD January 01, 2022 10:18 AM documented in this encounterOhio[facility]04-11-2022 Instructions* Patient Instructions* Lyle Nolasco MD - 12/04/2021 3:27 PM EDT MEDICAL DECISION MAKING: Asthma, persistent, well controlled. 1. I reviewed the pathophysiology of asthma, 06/2019 DON guidelines for evaluation and management,and mechanisms of action and side effects of medical therapy (ICS, bronchodilators) with the patient. 2. No change in maintenance Rx, Breo 1 inhalation once daily. 4. Continue Albuterol HFA inhaler, 2 inhalations as needed for rescue relief of shortness of breathor wheezing, up to 4 times daily. Check canister label for expiration date. 5. Annual Influenza vaccination and Pneumococcal vaccinations consistent with current recommendations and repeat is not indicated. 6. Pursuing COVID vaccination through local Health Department. Re-assess in 12 months. Sooner if needed. Obstructive sleep apnea. Discussed relationship of atrial fibrillation and untreated obstructive sleep apnea. 1. I offered to facilitate alternate DME provider. Patient will explore first. I am retiring from the staff of [facility] and the practice of Medicine on February 22, 2022, after 41 years of service to my patients. It has been my privilege to provide you with Pulmonary consultation and care for the time we have known each other. Please feel confident that my colleagues are well equipped to provide ongoing care in the future: Anshul Valenzuela MD and Alice Holt PA-C. Lyle Nolasco MD, [facility] Respiratory [facility] [address] [place] [id number] P: [phone] F: [phone] [email or web address] documented in this encounterOhiohealth [facility]04-11-2022 History of Present illness Narrative* Lyle Nolasco MD - 12/04/2021 3:02 PM EDT [facility] [place], 12/04/2021: Name: Bill Reynoso : 1945 INTERVAL HISTORY: The patient is here for follow up of asthma. Since the last Pulmonary Clinic visit, the patient admits to consistent compliance with prescribed maintenance Breo. There have been no ED visits, hospitalizations or prednisone prescribed for the management of exacerbation. Has never used rescue Albuterol. No nocturnal awakenings per month with asthma symptoms. No cough or sputum to speak of. No wheezing. Exertional dyspnea is stable, and he manages activities of daily living and home/outdoor activitieswith pace. Stopped using CPAP concerned about recall, then shortly thereafter developed atrial fibrillation, so resumed use of CPAP. No disruption in taste or voice associated with use of inhaled corticosteroid. No tremor, palpitations, or muscle cramping associated with bronchodilator inhalation. Problem list, PMH, PSH, FAMH, SOCH: Reviewed with patient today, and updated accordingly. Immunizations reviewed today. Allergies reviewed and updated, and medications reconciled today. PHYSICAL EXAMINATION: BP (P) 130/74 Pulse (!) (P) 53 Resp (P) 17 Wt 109.8 kg (242 lb) SpO2 (P) 97% BMI 35.74 kg/m Gen: No acute distress. Cooperative with examination. ENT: Nares clear. Oral hygeine good. Pharynx clear. Resp: No stridor, accessory respiratory muscle use. No crackles, wheezes. Diminished breath sounds at right base. CV: Regular rythm. Heart tones normal. Radial pulses normal. Abd: Not distended. MSK: No kyphoscoliosis. Ext: Warm and well perfused. No cyanosis or edema. Skin: No rash, eczema, urticaria. Neuro: Mental status normal. No tremor. DATA REVIEW: No new testing today. MEDICAL DECISION MAKING: Asthma, persistent, well controlled. 1. I reviewed the pathophysiology of asthma, 06/2019 DON guidelines for evaluation and management,and mechanisms of action and side effects of medical therapy (ICS, bronchodilators) with the patient. 2. No change in maintenance Rx, Breo 1 inhalation once daily. 4. Continue Albuterol HFA inhaler, 2 inhalations as needed for rescue relief of shortness of breathor wheezing, up to 4 times daily. Check canister label for expiration date. 5. Annual Influenza vaccination and Pneumococcal vaccinations consistent with current recommendations and repeat is not indicated. 6. Pursuing COVID vaccination through local Health Department. Re-assess in 12 months. Sooner if needed. Obstructive sleep apnea. Discussed relationship of atrial fibrillation and untreated obstructive sleep apnea. 1. I offered to facilitate alternate DME provider. Patient will explore first. I addressed the questions of the patient, and he expressed understanding and acceptance of my answers. Lyle Nolasco MD, [facility] Res[facility] [address] [place] [id number] P: [phone] F: [phone] documented in this encounterOhiohealth [facility]12-12-2014 History of Past illness Narrative* Problem Noted Date Resolved Date DM type 2 (diabetes mellitus, type 2) 08/06/2014 04/02/2016 Acquired renal cyst 05/18/2013 04/02/2016 Sleep apnea 07/01/2012 03/29/2015 Acute low back pain 10/24/2010 03/29/2015 Cyst of bone 06/02/2010 03/29/2015 SVT (supraventricular tachycardia) 01/06/2010 08/03/2016 Other and unspecified disc disorder of cervical region 11/14/2009 08/03/2016 Cyst 05/27/2009 03/29/2015 Other benign neoplasm of con nective and other soft tissue of unspecified site 04/01/2009 04/02/2016 TELANG///CAPILLARY DIS NEC/NOS 09/09/2008 0 03/29/2015 Unspecified hypertrophic and atrophic condition of skin 09/09/2008 04/02/2016 Actinic keratosis 07/02/2008 03/29/2015 Seborrheic Keratosis 07/02/2008 03/29/2015 SOLAR LENGINES///DYSCHROMIA OTHER 07/02/2008 03/22/2014 Other chronic dermatitis due to solar radiation 07/02/2008 03/29/2015 Iron deficiency anemia, unspecified 10/16/2007 04/02/2016 Anemia, unspecified 10/16/2007 03/29/2015 Hemorrhage of gastrointestinal tract, unspecifie d 05/08/2007 03/29/2015 Acute gastritis without mention of hemorrhage 04/02/2016 Anal fissure 05/08/2007 04/02/2016 Special screening for malignant neoplasms, colon 05/08/2007 03/29/2015 Ingrowing nail 10/15/2006 03/29/2015 Other acquired deformity of toe 10/15/2006 03/29/2015 Sciatica 07/25/2006 08/03/2016 Anal fistula 04/02/2016 Internal hemorrhoids without mention of complica tion 03/29/2015 Other symptoms involving digestive system(787.99 ) 03/29/2015 PMH - PAST MEDICAL HISTORY OF Overview: RIGHT KNEE ACL DEFICIENT -CHRONIC documented as of this encounter (statuses as of 12/11/2021) [facility]12-12-2014 History of Past illness Narrative* Problem Noted Date Resolved Date DM type 2 (diabetes mellitus, type 2) 08/06/2014 04/02/2016 Acquired renal cyst 05/18/2013 04/02/2016 Sleep apnea 07/01/2012 03/29/2015 Acute low back pain 10/24/2010 03/29/2015 Cyst of bone 06/02/2010 03/29/2015 SVT (supraventricular tachycardia) 01/06/2010 08/03/2016 Other and unspecified disc disorder of cervical region 11/14/2009 08/03/2016 Cyst 05/27/2009 03/29/2015 Other benign neoplasm of con nective and other soft tissue of unspecified site 04/01/2009 04/02/2016 TELANG///CAPILLARY DIS NEC/NOS 09/09/2008 0 03/29/2015 Unspecified hypertrophic and atrophic condition of skin 09/09/2008 04/02/2016 Actinic keratosis 07/02/2008 03/29/2015 Seborrheic Keratosis 07/02/2008 03/29/2015 SOLAR LENGINES///DYSCHROMIA OTHER 07/02/2008 03/22/2014 Other chronic dermatitis due to solar radiation 07/02/2008 03/29/2015 Iron deficiency anemia, unspecified 10/16/2007 04/02/2016 Anemia, unspecified 10/16/2007 03/29/2015 Hemorrhage of gastrointestinal tract, unspecifie d 05/08/2007 03/29/2015 Acute gastritis without mention of hemorrhage 04/02/2016 Anal fissure 05/08/2007 04/02/2016 Special screening for malignant neoplasms, colon 05/08/2007 03/29/2015 Ingrowing nail 10/15/2006 03/29/2015 Other acquired deformity of toe 10/15/2006 03/29/2015 Sciatica 07/25/2006 08/03/2016 Anal fistula 04/02/2016 Internal hemorrhoids without mention of complica tion 03/29/2015 Other symptoms involving digestive system(787.99 ) 03/29/2015 PMH - PAST MEDICAL HISTORY OF Overview: RIGHT KNEE ACL DEFICIENT -CHRONIC documented as of this encounter (statuses as of 01/01/2022) [facility]12-12-[facility] History of Past illness Narrative* Problem Noted Date Resolved Date DM type 2 (diabetes mellitus, type 2) 08/06/2014 04/02/2016 Acquired renal cyst 05/18/2013 04/02/2016 Sleep apnea 07/01/2012 03/29/2015 Acute low back pain 10/24/2010 03/29/2015 Cyst of bone 06/02/2010 03/29/2015 SVT (supraventricular tachycardia) 01/06/2010 08/03/2016 Other and unspecified disc disorder of cervical region 11/14/2009 08/03/2016 Cyst 05/27/2009 03/29/2015 Other benign neoplasm of con nective and other soft tissue of unspecified site 04/01/2009 04/02/2016 TELANG///CAPILLARY DIS NEC/NOS 09/09/2008 0 03/29/2015 Unspecified hypertrophic and atrophic condition of skin 09/09/2008 04/02/2016 Actinic keratosis 07/02/2008 03/29/2015 Seborrheic Keratosis 07/02/2008 03/29/2015 SOLAR LENGINES///DYSCHROMIA OTHER 07/02/2008 03/22/2014 Other chronic dermatitis due to solar radiation 07/02/2008 03/29/2015 Iron deficiency anemia, unspecified 10/16/2007 04/02/2016 Anemia, unspecified 10/16/2007 03/29/2015 Hemorrhage of gastrointestinal tract, unspecifie d 05/08/2007 03/29/2015 Acute gastritis without mention of hemorrhage 04/02/2016 Anal fissure 05/08/2007 04/02/2016 Special screening for malignant neoplasms, colon 05/08/2007 03/29/2015 Ingrowing nail 10/15/2006 03/29/2015 Other acquired deformity of toe 10/15/2006 03/29/2015 Sciatica 07/25/2006 08/03/2016 Anal fistula 04/02/2016 Internal hemorrhoids without mention of complica tion 03/29/2015 Other symptoms involving digestive system(787.99 ) 03/29/2015 PMH - PAST MEDICAL HISTORY OF Overview: RIGHT KNEE ACL DEFICIENT -CHRONIC documented as of this encounter (statuses as of 01/02/2022) [facility]12-12-[facility] History of Past illness Narrative* Problem Noted Date Resolved Date DM type 2 (diabetes mellitus, type 2) 08/06/2014 04/02/2016 Acquired renal cyst 05/18/2013 04/02/2016 Sleep apnea 07/01/2012 03/29/2015 Acute low back pain 10/24/2010 03/29/2015 Cyst of bone 06/02/2010 03/29/2015 SVT (supraventricular tachycardia) 01/06/2010 08/03/2016 Other and unspecified disc disorder of cervical region 11/14/2009 08/03/2016 Cyst 05/27/2009 03/29/2015 Other benign neoplasm of con nective and other soft tissue of unspecified site 04/01/2009 04/02/2016 TELANG///CAPILLARY DIS NEC/NOS 09/09/2008 0 03/29/2015 Unspecified hypertrophic and atrophic condition of skin 09/09/2008 04/02/2016 Actinic keratosis 07/02/2008 03/29/2015 Seborrheic Keratosis 07/02/2008 03/29/2015 SOLAR LENGINES///DYSCHROMIA OTHER 07/02/2008 03/22/2014 Other chronic dermatitis due to solar radiation 07/02/2008 03/29/2015 Iron deficiency anemia, unspecified 10/16/2007 04/02/2016 Anemia, unspecified 10/16/2007 03/29/2015 Hemorrhage of gastrointestinal tract, unspecifie d 05/08/2007 03/29/2015 Acute gastritis without mention of hemorrhage 04/02/2016 Anal fissure 05/08/2007 04/02/2016 Special screening for malignant neoplasms, colon 05/08/2007 03/29/2015 Ingrowing nail 10/15/2006 03/29/2015 Other acquired deformity of toe 10/15/2006 03/29/2015 Sciatica 07/25/2006 08/03/2016 Anal fistula 04/02/2016 Internal hemorrhoids without mention of complica tion 03/29/2015 Other symptoms involving digestive system(787.99 ) 03/29/2015 PMH - PAST MEDICAL HISTORY OF Overview: RIGHT KNEE ACL DEFICIENT -CHRONIC documented as of this encounter (statuses as of 01/02/2022) [facility]12-12-[facility] History of Past illness Narrative* Problem Noted Date Resolved Date DM type 2 (diabetes mellitus, type 2) 08/06/2014 04/02/2016 Acquired renal cyst 05/18/2013 04/02/2016 Sleep apnea 07/01/2012 03/29/2015 Acute low back pain 10/24/2010 03/29/2015 Cyst of bone 06/02/2010 03/29/2015 SVT (supraventricular tachycardia) 01/06/2010 08/03/2016 Other and unspecified disc disorder of cervical region 11/14/2009 08/03/2016 Cyst 05/27/2009 03/29/2015 Other benign neoplasm of con nective and other soft tissue of unspecified site 04/01/2009 04/02/2016 TELANG///CAPILLARY DIS NEC/NOS 09/09/2008 0 03/29/2015 Unspecified hypertrophic and atrophic condition of skin 09/09/2008 04/02/2016 Actinic keratosis 07/02/2008 03/29/2015 Seborrheic Keratosis 07/02/2008 03/29/2015 SOLAR LENGINES///DYSCHROMIA OTHER 07/02/2008 03/22/2014 Other chronic dermatitis due to solar radiation 07/02/2008 03/29/2015 Iron deficiency anemia, unspecified 10/16/2007 04/02/2016 Anemia, unspecified 10/16/2007 03/29/2015 Hemorrhage of gastrointestinal tract, unspecifie d 05/08/2007 03/29/2015 Acute gastritis without mention of hemorrhage 04/02/2016 Anal fissure 05/08/2007 04/02/2016 Special screening for malignant neoplasms, colon 05/08/2007 03/29/2015 Ingrowing nail 10/15/2006 03/29/2015 Other acquired deformity of toe 10/15/2006 03/29/2015 Sciatica 07/25/2006 08/03/2016 Anal fistula 04/02/2016 Internal hemorrhoids without mention of complica tion 03/29/2015 Other symptoms involving digestive system(787.99 ) 03/29/2015 PMH - PAST MEDICAL HISTORY OF Overview: RIGHT KNEE ACL DEFICIENT -CHRONIC documented as of this encounter (statuses as of 01/04/2022) [facility]12-12-[facility] History of Past illness Narrative* Problem Noted Date Resolved Date DM type 2 (diabetes mellitus, type 2) 08/06/2014 04/02/2016 Acquired renal cyst 05/18/2013 04/02/2016 Sleep apnea 07/01/2012 03/29/2015 Acute low back pain 10/24/2010 03/29/2015 Cyst of bone 06/02/2010 03/29/2015 SVT (supraventricular tachycardia) 01/06/2010 08/03/2016 Other and unspecified disc disorder of cervical region 11/14/2009 08/03/2016 Cyst 05/27/2009 03/29/2015 Other benign neoplasm of con nective and other soft tissue of unspecified site 04/01/2009 04/02/2016 TELANG///CAPILLARY DIS NEC/NOS 09/09/2008 0 03/29/2015 Unspecified hypertrophic and atrophic condition of skin 09/09/2008 04/02/2016 Actinic keratosis 07/02/2008 03/29/2015 Seborrheic Keratosis 07/02/2008 03/29/2015 SOLAR LENGINES///DYSCHROMIA OTHER 07/02/2008 03/22/2014 Other chronic dermatitis due to solar radiation 07/02/2008 03/29/2015 Iron deficiency anemia, unspecified 10/16/2007 04/02/2016 Anemia, unspecified 10/16/2007 03/29/2015 Hemorrhage of gastrointestinal tract, unspecifie d 05/08/2007 03/29/2015 Acute gastritis without mention of hemorrhage 04/02/2016 Anal fissure 05/08/2007 04/02/2016 Special screening for malignant neoplasms, colon 05/08/2007 03/29/2015 Ingrowing nail 10/15/2006 03/29/2015 Other acquired deformity of toe 10/15/2006 03/29/2015 Sciatica 07/25/2006 08/03/2016 Anal fistula 04/02/2016 Internal hemorrhoids without mention of complica tion 03/29/2015 Other symptoms involving digestive system(787.99 ) 03/29/2015 PMH - PAST MEDICAL HISTORY OF Overview: RIGHT KNEE ACL DEFICIENT -CHRONIC documented as of this encounter (statuses as of 01/10/2022) [facility]12-12[facility] History of Past illness Narrative* Problem Noted Date Resolved Date DM type 2 (diabetes mellitus, type 2) 08/06/2014 04/02/2016 Acquired renal cyst 05/18/2013 04/02/2016 Sleep apnea 07/01/2012 03/29/2015 Acute low back pain 10/24/2010 03/29/2015 Cyst of bone 06/02/2010 03/29/2015 SVT (supraventricular tachycardia) 01/06/2010 08/03/2016 Other and unspecified disc disorder of cervical region 11/14/2009 08/03/2016 Cyst 05/27/2009 03/29/2015 Other benign neoplasm of con nective and other soft tissue of unspecified site 04/01/2009 04/02/2016 TELANG///CAPILLARY DIS NEC/NOS 09/09/2008 0 03/29/2015 Unspecified hypertrophic and atrophic condition of skin 09/09/2008 04/02/2016 Actinic keratosis 07/02/2008 03/29/2015 Seborrheic Keratosis 07/02/2008 03/29/2015 SOLAR LENGINES///DYSCHROMIA OTHER 07/02/2008 03/22/2014 Other chronic dermatitis due to solar radiation 07/02/2008 03/29/2015 Iron deficiency anemia, unspecified 10/16/2007 04/02/2016 Anemia, unspecified 10/16/2007 03/29/2015 Hemorrhage of gastrointestinal tract, unspecifie d 05/08/2007 03/29/2015 Acute gastritis without mention of hemorrhage 04/02/2016 Anal fissure 05/08/2007 04/02/2016 Special screening for malignant neoplasms, colon 05/08/2007 03/29/2015 Ingrowing nail 10/15/2006 03/29/2015 Other acquired deformity of toe 10/15/2006 03/29/2015 Sciatica 07/25/2006 08/03/2016 Anal fistula 04/02/2016 Internal hemorrhoids without mention of complica tion 03/29/2015 Other symptoms involving digestive system(787.99 ) 03/29/2015 PMH - PAST MEDICAL HISTORY OF Overview: RIGHT KNEE ACL DEFICIENT -CHRONIC documented as of this encounter (statuses as of 01/25/2022) [facility]12-12-[facility] History of Past illness Narrative* Problem Noted Date Resolved Date DM type 2 (diabetes mellitus, type 2) 08/06/2014 04/02/2016 Acquired renal cyst 05/18/2013 04/02/2016 Sleep apnea 07/01/2012 03/29/2015 Acute low back pain 10/24/2010 03/29/2015 Cyst of bone 06/02/2010 03/29/2015 SVT (supraventricular tachycardia) 01/06/2010 08/03/2016 Other and unspecified disc disorder of cervical region 11/14/2009 08/03/2016 Cyst 05/27/2009 03/29/2015 Other benign neoplasm of con nective and other soft tissue of unspecified site 04/01/2009 04/02/2016 TELANG///CAPILLARY DIS NEC/NOS 09/09/2008 0 03/29/2015 Unspecified hypertrophic and atrophic condition of skin 09/09/2008 04/02/2016 Actinic keratosis 07/02/2008 03/29/2015 Seborrheic Keratosis 07/02/2008 03/29/2015 SOLAR LENGINES///DYSCHROMIA OTHER 07/02/2008 03/22/2014 Other chronic dermatitis due to solar radiation 07/02/2008 03/29/2015 Iron deficiency anemia, unspecified 10/16/2007 04/02/2016 Anemia, unspecified 10/16/2007 03/29/2015 Hemorrhage of gastrointestinal tract, unspecifie d 05/08/2007 03/29/2015 Acute gastritis without mention of hemorrhage 04/02/2016 Anal fissure 05/08/2007 04/02/2016 Special screening for malignant neoplasms, colon 05/08/2007 03/29/2015 Ingrowing nail 10/15/2006 03/29/2015 Other acquired deformity of toe 10/15/2006 03/29/2015 Sciatica 07/25/2006 08/03/2016 Anal fistula 04/02/2016 Internal hemorrhoids without mention of complica tion 03/29/2015 Other symptoms involving digestive system(787.99 ) 03/29/2015 PMH - PAST MEDICAL HISTORY OF Overview: RIGHT KNEE ACL DEFICIENT -CHRONIC documented as of this encounter (statuses as of 03/09/2022) [facility]12-12[facility] History of Past illness Narrative* Problem Noted Date Resolved Date DM type 2 (diabetes mellitus, type 2) 08/06/2014 04/02/2016 Acquired renal cyst 05/18/2013 04/02/2016 Sleep apnea 07/01/2012 03/29/2015 Acute low back pain 10/24/2010 03/29/2015 Cyst of bone 06/02/2010 03/29/2015 SVT (supraventricular tachycardia) 01/06/2010 08/03/2016 Other and unspecified disc disorder of cervical region 11/14/2009 08/03/2016 Cyst 05/27/2009 03/29/2015 Other benign neoplasm of con nective and other soft tissue of unspecified site 04/01/2009 04/02/2016 TELANG///CAPILLARY DIS NEC/NOS 09/09/2008 0 03/29/2015 Unspecified hypertrophic and atrophic condition of skin 09/09/2008 04/02/2016 Actinic keratosis 07/02/2008 03/29/2015 Seborrheic Keratosis 07/02/2008 03/29/2015 SOLAR LENGINES///DYSCHROMIA OTHER 07/02/2008 03/22/2014 Other chronic dermatitis due to solar radiation 07/02/2008 03/29/2015 Iron deficiency anemia, unspecified 10/16/2007 04/02/2016 Anemia, unspecified 10/16/2007 03/29/2015 Hemorrhage of gastrointestinal tract, unspecifie d 05/08/2007 03/29/2015 Acute gastritis without mention of hemorrhage 04/02/2016 Anal fissure 05/08/2007 04/02/2016 Special screening for malignant neoplasms, colon 05/08/2007 03/29/2015 Ingrowing nail 10/15/2006 03/29/2015 Other acquired deformity of toe 10/15/2006 03/29/2015 Sciatica 07/25/2006 08/03/2016 Anal fistula 04/02/2016 Internal hemorrhoids without mention of complica tion 03/29/2015 Other symptoms involving digestive system(787.99 ) 03/29/2015 PMH - PAST MEDICAL HISTORY OF Overview: RIGHT KNEE ACL DEFICIENT -CHRONIC documented as of this encounter (statuses as of 03/12/2022) [facility]12-12[facility] History of Past illness Narrative* Problem Noted Date Resolved Date DM type 2 (diabetes mellitus, type 2) 08/06/2014 04/02/2016 Acquired renal cyst 05/18/2013 04/02/2016 Sleep apnea 07/01/2012 03/29/2015 Acute low back pain 10/24/2010 03/29/2015 Cyst of bone 06/02/2010 03/29/2015 SVT (supraventricular tachycardia) 01/06/2010 08/03/2016 Other and unspecified disc disorder of cervical region 11/14/2009 08/03/2016 Cyst 05/27/2009 03/29/2015 Other benign neoplasm of con nective and other soft tissue of unspecified site 04/01/2009 04/02/2016 TELANG///CAPILLARY DIS NEC/NOS 09/09/2008 0 03/29/2015 Unspecified hypertrophic and atrophic condition of skin 09/09/2008 04/02/2016 Actinic keratosis 07/02/2008 03/29/2015 Seborrheic Keratosis 07/02/2008 03/29/2015 SOLAR LENGINES///DYSCHROMIA OTHER 07/02/2008 03/22/2014 Other chronic dermatitis due to solar radiation 07/02/2008 03/29/2015 Iron deficiency anemia, unspecified 10/16/2007 04/02/2016 Anemia, unspecified 10/16/2007 03/29/2015 Hemorrhage of gastrointestinal tract, unspecifie d 05/08/2007 03/29/2015 Acute gastritis without mention of hemorrhage 04/02/2016 Anal fissure 05/08/2007 04/02/2016 Special screening for malignant neoplasms, colon 05/08/2007 03/29/2015 Ingrowing nail 10/15/2006 03/29/2015 Other acquired deformity of toe 10/15/2006 03/29/2015 Sciatica 07/25/2006 08/03/2016 Anal fistula 04/02/2016 Internal hemorrhoids without mention of complica tion 03/29/2015 Other symptoms involving digestive system(787.99 ) 03/29/2015 PMH - PAST MEDICAL HISTORY OF Overview: RIGHT KNEE ACL DEFICIENT -CHRONIC documented as of this encounter (statuses as of 03/13/2022) [facility]12[facility] History of Past illness Narrative* Problem Noted Date Resolved Date DM type 2 (diabetes mellitus, type 2) 08/06/2014 04/02/2016 Acquired renal cyst 05/18/2013 04/02/2016 Sleep apnea 07/01/2012 03/29/2015 Acute low back pain 10/24/2010 03/29/2015 Cyst of bone 06/02/2010 03/29/2015 SVT (supraventricular tachycardia) 01/06/2010 08/03/2016 Other and unspecified disc disorder of cervical region 11/14/2009 08/03/2016 Cyst 05/27/2009 03/29/2015 Other benign neoplasm of con nective and other soft tissue of unspecified site 04/01/2009 04/02/2016 TELANG///CAPILLARY DIS NEC/NOS 09/09/2008 0 03/29/2015 Unspecified hypertrophic and atrophic condition of skin 09/09/2008 04/02/2016 Actinic keratosis 07/02/2008 03/29/2015 Seborrheic Keratosis 07/02/2008 03/29/2015 SOLAR LENGINES///DYSCHROMIA OTHER 07/02/2008 03/22/2014 Other chronic dermatitis due to solar radiation 07/02/2008 03/29/2015 Iron deficiency anemia, unspecified 10/16/2007 04/02/2016 Anemia, unspecified 10/16/2007 03/29/2015 Hemorrhage of gastrointestinal tract, unspecifie d 05/08/2007 03/29/2015 Acute gastritis without mention of hemorrhage 04/02/2016 Anal fissure 05/08/2007 04/02/2016 Special screening for malignant neoplasms, colon 05/08/2007 03/29/2015 Ingrowing nail 10/15/2006 03/29/2015 Other acquired deformity of toe 10/15/2006 03/29/2015 Sciatica 07/25/2006 08/03/2016 Anal fistula 04/02/2016 Internal hemorrhoids without mention of complica tion 03/29/2015 Other symptoms involving digestive system(787.99 ) 03/29/2015 PMH - PAST MEDICAL HISTORY OF Overview: RIGHT KNEE ACL DEFICIENT -CHRONIC documented as of this encounter (statuses as of 03/23/2022) [facility]12[facility] History of Past illness Narrative* Problem Noted Date Resolved Date DM type 2 (diabetes mellitus, type 2) 08/06/2014 04/02/2016 Acquired renal cyst 05/18/2013 04/02/2016 Sleep apnea 07/01/2012 03/29/2015 Acute low back pain 10/24/2010 03/29/2015 Cyst of bone 06/02/2010 03/29/2015 SVT (supraventricular tachycardia) 01/06/2010 08/03/2016 Other and unspecified disc disorder of cervical region 11/14/2009 08/03/2016 Cyst 05/27/2009 03/29/2015 Other benign neoplasm of con nective and other soft tissue of unspecified site 04/01/2009 04/02/2016 TELANG///CAPILLARY DIS NEC/NOS 09/09/2008 0 03/29/2015 Unspecified hypertrophic and atrophic condition of skin 09/09/2008 04/02/2016 Actinic keratosis 07/02/2008 03/29/2015 Seborrheic Keratosis 07/02/2008 03/29/2015 SOLAR LENGINES///DYSCHROMIA OTHER 07/02/2008 03/22/2014 Other chronic dermatitis due to solar radiation 07/02/2008 03/29/2015 Iron deficiency anemia, unspecified 10/16/2007 04/02/2016 Anemia, unspecified 10/16/2007 03/29/2015 Hemorrhage of gastrointestinal tract, unspecifie d 05/08/2007 03/29/2015 Acute gastritis without mention of hemorrhage 04/02/2016 Anal fissure 05/08/2007 04/02/2016 Special screening for malignant neoplasms, colon 05/08/2007 03/29/2015 Ingrowing nail 10/15/2006 03/29/2015 Other acquired deformity of toe 10/15/2006 03/29/2015 Sciatica 07/25/2006 08/03/2016 Anal fistula 04/02/2016 Internal hemorrhoids without mention of complica tion 03/29/2015 Other symptoms involving digestive system(787.99 ) 03/29/2015 PMH - PAST MEDICAL HISTORY OF Overview: RIGHT KNEE ACL DEFICIENT -CHRONIC documented as of this encounter (statuses as of 03/23/2022) [facility] History of Past illness Narrative* Problem Noted Date Resolved Date DM type 2 (diabetes mellitus, type 2) 08/06/2014 04/02/2016 Acquired renal cyst 05/18/2013 04/02/2016 Sleep apnea 07/01/2012 03/29/2015 Acute low back pain 10/24/2010 03/29/2015 Cyst of bone 06/02/2010 03/29/2015 SVT (supraventricular tachycardia) 01/06/2010 08/03/2016 Other and unspecified disc disorder of cervical region 11/14/2009 08/03/2016 Cyst 05/27/2009 03/29/2015 Other benign neoplasm of con nective and other soft tissue of unspecified site 04/01/2009 04/02/2016 TELANG///CAPILLARY DIS NEC/NOS 09/09/2008 0 03/29/2015 Unspecified hypertrophic and atrophic condition of skin 09/09/2008 04/02/2016 Actinic keratosis 07/02/2008 03/29/2015 Seborrheic Keratosis 07/02/2008 03/29/2015 SOLAR LENGINES///DYSCHROMIA OTHER 07/02/2008 03/22/2014 Other chronic dermatitis due to solar radiation 07/02/2008 03/29/2015 Iron deficiency anemia, unspecified 10/16/2007 04/02/2016 Anemia, unspecified 10/16/2007 03/29/2015 Hemorrhage of gastrointestinal tract, unspecifie d 05/08/2007 03/29/2015 Acute gastritis without mention of hemorrhage 04/02/2016 Anal fissure 05/08/2007 04/02/2016 Special screening for malignant neoplasms, colon 05/08/2007 03/29/2015 Ingrowing nail 10/15/2006 03/29/2015 Other acquired deformity of toe 10/15/2006 03/29/2015 Sciatica 07/25/2006 08/03/2016 Anal fistula 04/02/2016 Internal hemorrhoids without mention of complica tion 03/29/2015 Other symptoms involving digestive system(787.99 ) 03/29/2015 PMH - PAST MEDICAL HISTORY OF Overview: RIGHT KNEE ACL DEFICIENT -CHRONIC documented as of this encounter (statuses as of 03/25/2022) [facility] History of Past illness Narrative* Problem Noted Date Resolved Date DM type 2 (diabetes mellitus, type 2) 08/06/2014 04/02/2016 Acquired renal cyst 05/18/2013 04/02/2016 Sleep apnea 07/01/2012 03/29/2015 Acute low back pain 10/24/2010 03/29/2015 Cyst of bone 06/02/2010 03/29/2015 SVT (supraventricular tachycardia) 01/06/2010 08/03/2016 Other and unspecified disc disorder of cervical region 11/14/2009 08/03/2016 Cyst 05/27/2009 03/29/2015 Other benign neoplasm of con nective and other soft tissue of unspecified site 04/01/2009 04/02/2016 TELANG///CAPILLARY DIS NEC/NOS 09/09/2008 0 03/29/2015 Unspecified hypertrophic and atrophic condition of skin 09/09/2008 04/02/2016 Actinic keratosis 07/02/2008 03/29/2015 Seborrheic Keratosis 07/02/2008 03/29/2015 SOLAR LENGINES///DYSCHROMIA OTHER 07/02/2008 03/22/2014 Other chronic dermatitis due to solar radiation 07/02/2008 03/29/2015 Iron deficiency anemia, unspecified 10/16/2007 04/02/2016 Anemia, unspecified 10/16/2007 03/29/2015 Hemorrhage of gastrointestinal tract, unspecifie d 05/08/2007 03/29/2015 Acute gastritis without mention of hemorrhage 04/02/2016 Anal fissure 05/08/2007 04/02/2016 Special screening for malignant neoplasms, colon 05/08/2007 03/29/2015 Ingrowing nail 10/15/2006 03/29/2015 Other acquired deformity of toe 10/15/2006 03/29/2015 Sciatica 07/25/2006 08/03/2016 Anal fistula 04/02/2016 Internal hemorrhoids without mention of complica tion 03/29/2015 Other symptoms involving digestive system(787.99 ) 03/29/2015 PMH - PAST MEDICAL HISTORY OF Overview: RIGHT KNEE ACL DEFICIENT -CHRONIC documented as of this encounter (statuses as of 03/28/2022) [facility] History of Past illness Narrative* Problem Noted Date Resolved Date DM type 2 (diabetes mellitus, type 2) 08/06/2014 04/02/2016 Acquired renal cyst 05/18/2013 04/02/2016 Sleep apnea 07/01/2012 03/29/2015 Acute low back pain 10/24/2010 03/29/2015 Cyst of bone 06/02/2010 03/29/2015 SVT (supraventricular tachycardia) 01/06/2010 08/03/2016 Other and unspecified disc disorder of cervical region 11/14/2009 08/03/2016 Cyst 05/27/2009 03/29/2015 Other benign neoplasm of con nective and other soft tissue of unspecified site 04/01/2009 04/02/2016 TELANG///CAPILLARY DIS NEC/NOS 09/09/2008 0 03/29/2015 Unspecified hypertrophic and atrophic condition of skin 09/09/2008 04/02/2016 Actinic keratosis 07/02/2008 03/29/2015 Seborrheic Keratosis 07/02/2008 03/29/2015 SOLAR LENGINES///DYSCHROMIA OTHER 07/02/2008 03/22/2014 Other chronic dermatitis due to solar radiation 07/02/2008 03/29/2015 Iron deficiency anemia, unspecified 10/16/2007 04/02/2016 Anemia, unspecified 10/16/2007 03/29/2015 Hemorrhage of gastrointestinal tract, unspecifie d 05/08/2007 03/29/2015 Acute gastritis without mention of hemorrhage 04/02/2016 Anal fissure 05/08/2007 04/02/2016 Special screening for malignant neoplasms, colon 05/08/2007 03/29/2015 Ingrowing nail 10/15/2006 03/29/2015 Other acquired deformity of toe 10/15/2006 03/29/2015 Sciatica 07/25/2006 08/03/2016 Anal fistula 04/02/2016 Internal hemorrhoids without mention of complica tion 03/29/2015 Other symptoms involving digestive system(787.99 ) 03/29/2015 PMH - PAST MEDICAL HISTORY OF Overview: RIGHT KNEE ACL DEFICIENT -CHRONIC documented as of this encounter (statuses as of 04/02/2022) [facility]12-12-2014 History of Past illness Narrative* Problem Noted Date Resolved Date DM type 2 (diabetes mellitus, type 2) 08/06/2014 04/02/2016 Acquired renal cyst 05/18/2013 04/02/2016 Sleep apnea 07/01/2012 03/29/2015 Acute low back pain 10/24/2010 03/29/2015 Cyst of bone 06/02/2010 03/29/2015 SVT (supraventricular tachycardia) 01/06/2010 08/03/2016 Other and unspecified disc disorder of cervical region 11/14/2009 08/03/2016 Cyst 05/27/2009 03/29/2015 Other benign neoplasm of con nective and other soft tissue of unspecified site 04/01/2009 04/02/2016 TELANG///CAPILLARY DIS NEC/NOS 09/09/2008 0 03/29/2015 Unspecified hypertrophic and atrophic condition of skin 09/09/2008 04/02/2016 Actinic keratosis 07/02/2008 03/29/2015 Seborrheic Keratosis 07/02/2008 03/29/2015 SOLAR LENGINES///DYSCHROMIA OTHER 07/02/2008 03/22/2014 Other chronic dermatitis due to solar radiation 07/02/2008 03/29/2015 Iron deficiency anemia, unspecified 10/16/2007 04/02/2016 Anemia, unspecified 10/16/2007 03/29/2015 Hemorrhage of gastrointestinal tract, unspecifie d 05/08/2007 03/29/2015 Acute gastritis without mention of hemorrhage 04/02/2016 Anal fissure 05/08/2007 04/02/2016 Special screening for malignant neoplasms, colon 05/08/2007 03/29/2015 Ingrowing nail 10/15/2006 03/29/2015 Other acquired deformity of toe 10/15/2006 03/29/2015 Sciatica 07/25/2006 08/03/2016 Anal fistula 04/02/2016 Internal hemorrhoids without mention of complica tion 03/29/2015 Other symptoms involving digestive system(787.99 ) 03/29/2015 PMH - PAST MEDICAL HISTORY OF Overview: RIGHT KNEE ACL DEFICIENT -CHRONIC documented as of this encounter (statuses as of 04/02/2022) [facility]12-12[facility] History of Past illness Narrative* Problem Noted Date Resolved Date DM type 2 (diabetes mellitus, type 2) 08/06/2014 04/02/2016 Acquired renal cyst 05/18/2013 04/02/2016 Sleep apnea 07/01/2012 03/29/2015 Acute low back pain 10/24/2010 03/29/2015 Cyst of bone 06/02/2010 03/29/2015 SVT (supraventricular tachycardia) 01/06/2010 08/03/2016 Other and unspecified disc disorder of cervical region 11/14/2009 08/03/2016 Cyst 05/27/2009 03/29/2015 Other benign neoplasm of con nective and other soft tissue of unspecified site 04/01/2009 04/02/2016 TELANG///CAPILLARY DIS NEC/NOS 09/09/2008 0 03/29/2015 Unspecified hypertrophic and atrophic condition of skin 09/09/2008 04/02/2016 Actinic keratosis 07/02/2008 03/29/2015 Seborrheic Keratosis 07/02/2008 03/29/2015 SOLAR LENGINES///DYSCHROMIA OTHER 07/02/2008 03/22/2014 Other chronic dermatitis due to solar radiation 07/02/2008 03/29/2015 Iron deficiency anemia, unspecified 10/16/2007 04/02/2016 Anemia, unspecified 10/16/2007 03/29/2015 Hemorrhage of gastrointestinal tract, unspecifie d 05/08/2007 03/29/2015 Acute gastritis without mention of hemorrhage 04/02/2016 Anal fissure 05/08/2007 04/02/2016 Special screening for malignant neoplasms, colon 05/08/2007 03/29/2015 Ingrowing nail 10/15/2006 03/29/2015 Other acquired deformity of toe 10/15/2006 03/29/2015 Sciatica 07/25/2006 08/03/2016 Anal fistula 04/02/2016 Internal hemorrhoids without mention of complica tion 03/29/2015 Other symptoms involving digestive system(787.99 ) 03/29/2015 PMH - PAST MEDICAL HISTORY OF Overview: RIGHT KNEE ACL DEFICIENT -CHRONIC documented as of this encounter (statuses as of 04/25/2022) [facility]12-[facility] History of Past illness Narrative* Problem Noted Date Resolved Date DM type 2 (diabetes mellitus, type 2) 08/06/2014 04/02/2016 Acquired renal cyst 05/18/2013 04/02/2016 Sleep apnea 07/01/2012 03/29/2015 Acute low back pain 10/24/2010 03/29/2015 Cyst of bone 06/02/2010 03/29/2015 SVT (supraventricular tachycardia) 01/06/2010 08/03/2016 Other and unspecified disc disorder of cervical region 11/14/2009 08/03/2016 Cyst 05/27/2009 03/29/2015 Other benign neoplasm of con nective and other soft tissue of unspecified site 04/01/2009 04/02/2016 TELANG///CAPILLARY DIS NEC/NOS 09/09/2008 0 03/29/2015 Unspecified hypertrophic and atrophic condition of skin 09/09/2008 04/02/2016 Actinic keratosis 07/02/2008 03/29/2015 Seborrheic Keratosis 07/02/2008 03/29/2015 SOLAR LENGINES///DYSCHROMIA OTHER 07/02/2008 03/22/2014 Other chronic dermatitis due to solar radiation 07/02/2008 03/29/2015 Iron deficiency anemia, unspecified 10/16/2007 04/02/2016 Anemia, unspecified 10/16/2007 03/29/2015 Hemorrhage of gastrointestinal tract, unspecifie d 05/08/2007 03/29/2015 Acute gastritis without mention of hemorrhage 04/02/2016 Anal fissure 05/08/2007 04/02/2016 Special screening for malignant neoplasms, colon 05/08/2007 03/29/2015 Ingrowing nail 10/15/2006 03/29/2015 Other acquired deformity of toe 10/15/2006 03/29/2015 Sciatica 07/25/2006 08/03/2016 Anal fistula 04/02/2016 Internal hemorrhoids without mention of complica tion 03/29/2015 Other symptoms involving digestive system(787.99 ) 03/29/2015 PMH - PAST MEDICAL HISTORY OF Overview: RIGHT KNEE ACL DEFICIENT -CHRONIC documented as of this encounter (statuses as of 05/03/2022) [facility]12-12-[facility] History of Past illness Narrative* Problem Noted Date Resolved Date DM type 2 (diabetes mellitus, type 2) 08/06/2014 04/02/2016 Acquired renal cyst 05/18/2013 04/02/2016 Sleep apnea 07/01/2012 03/29/2015 Acute low back pain 10/24/2010 03/29/2015 Cyst of bone 06/02/2010 03/29/2015 SVT (supraventricular tachycardia) 01/06/2010 08/03/2016 Other and unspecified disc disorder of cervical region 11/14/2009 08/03/2016 Cyst 05/27/2009 03/29/2015 Other benign neoplasm of con nective and other soft tissue of unspecified site 04/01/2009 04/02/2016 TELANG///CAPILLARY DIS NEC/NOS 09/09/2008 0 03/29/2015 Unspecified hypertrophic and atrophic condition of skin 09/09/2008 04/02/2016 Actinic keratosis 07/02/2008 03/29/2015 Seborrheic Keratosis 07/02/2008 03/29/2015 SOLAR LENGINES///DYSCHROMIA OTHER 07/02/2008 03/22/2014 Other chronic dermatitis due to solar radiation 07/02/2008 03/29/2015 Iron deficiency anemia, unspecified 10/16/2007 04/02/2016 Anemia, unspecified 10/16/2007 03/29/2015 Hemorrhage of gastrointestinal tract, unspecifie d 05/08/2007 03/29/2015 Acute gastritis without mention of hemorrhage 04/02/2016 Anal fissure 05/08/2007 04/02/2016 Special screening for malignant neoplasms, colon 05/08/2007 03/29/2015 Ingrowing nail 10/15/2006 03/29/2015 Other acquired deformity of toe 10/15/2006 03/29/2015 Sciatica 07/25/2006 08/03/2016 Anal fistula 04/02/2016 Internal hemorrhoids without mention of complica tion 03/29/2015 Other symptoms involving digestive system(787.99 ) 03/29/2015 PMH - PAST MEDICAL HISTORY OF Overview: RIGHT KNEE ACL DEFICIENT -CHRONIC documented as of this encounter (statuses as of 05/03/2022) [facility]12-12[facility] History of Past illness Narrative* Problem Noted Date Resolved Date DM type 2 (diabetes mellitus, type 2) 08/06/2014 04/02/2016 Acquired renal cyst 05/18/2013 04/02/2016 Sleep apnea 07/01/2012 03/29/2015 Acute low back pain 10/24/2010 03/29/2015 Cyst of bone 06/02/2010 03/29/2015 SVT (supraventricular tachycardia) 01/06/2010 08/03/2016 Other and unspecified disc disorder of cervical region 11/14/2009 08/03/2016 Cyst 05/27/2009 03/29/2015 Other benign neoplasm of con nective and other soft tissue of unspecified site 04/01/2009 04/02/2016 TELANG///CAPILLARY DIS NEC/NOS 09/09/2008 0 03/29/2015 Unspecified hypertrophic and atrophic condition of skin 09/09/2008 04/02/2016 Actinic keratosis 07/02/2008 03/29/2015 Seborrheic Keratosis 07/02/2008 03/29/2015 SOLAR LENGINES///DYSCHROMIA OTHER 07/02/2008 03/22/2014 Other chronic dermatitis due to solar radiation 07/02/2008 03/29/2015 Iron deficiency anemia, unspecified 10/16/2007 04/02/2016 Anemia, unspecified 10/16/2007 03/29/2015 Hemorrhage of gastrointestinal tract, unspecifie d 05/08/2007 03/29/2015 Acute gastritis without mention of hemorrhage 04/02/2016 Anal fissure 05/08/2007 04/02/2016 Special screening for malignant neoplasms, colon 05/08/2007 03/29/2015 Ingrowing nail 10/15/2006 03/29/2015 Other acquired deformity of toe 10/15/2006 03/29/2015 Sciatica 07/25/2006 08/03/2016 Anal fistula 04/02/2016 Internal hemorrhoids without mention of complica tion 03/29/2015 Other symptoms involving digestive system(787.99 ) 03/29/2015 PMH - PAST MEDICAL HISTORY OF Overview: RIGHT KNEE ACL DEFICIENT -CHRONIC documented as of this encounter (statuses as of 05/04/2022) [facility]12[facility] History of Past illness Narrative* Problem Noted Date Resolved Date DM type 2 (diabetes mellitus, type 2) 08/06/2014 04/02/2016 Acquired renal cyst 05/18/2013 04/02/2016 Sleep apnea 07/01/2012 03/29/2015 Acute low back pain 10/24/2010 03/29/2015 Cyst of bone 06/02/2010 03/29/2015 SVT (supraventricular tachycardia) 01/06/2010 08/03/2016 Other and unspecified disc disorder of cervical region 11/14/2009 08/03/2016 Cyst 05/27/2009 03/29/2015 Other benign neoplasm of con nective and other soft tissue of unspecified site 04/01/2009 04/02/2016 TELANG///CAPILLARY DIS NEC/NOS 09/09/2008 0 03/29/2015 Unspecified hypertrophic and atrophic condition of skin 09/09/2008 04/02/2016 Actinic keratosis 07/02/2008 03/29/2015 Seborrheic Keratosis 07/02/2008 03/29/2015 SOLAR LENGINES///DYSCHROMIA OTHER 07/02/2008 03/22/2014 Other chronic dermatitis due to solar radiation 07/02/2008 03/29/2015 Iron deficiency anemia, unspecified 10/16/2007 04/02/2016 Anemia, unspecified 10/16/2007 03/29/2015 Hemorrhage of gastrointestinal tract, unspecifie d 05/08/2007 03/29/2015 Acute gastritis without mention of hemorrhage 04/02/2016 Anal fissure 05/08/2007 04/02/2016 Special screening for malignant neoplasms, colon 05/08/2007 03/29/2015 Ingrowing nail 10/15/2006 03/29/2015 Other acquired deformity of toe 10/15/2006 03/29/2015 Sciatica 07/25/2006 08/03/2016 Anal fistula 04/02/2016 Internal hemorrhoids without mention of complica tion 03/29/2015 Other symptoms involving digestive system(787.99 ) 03/29/2015 PMH - PAST MEDICAL HISTORY OF Overview: RIGHT KNEE ACL DEFICIENT -CHRONIC documented as of this encounter (statuses as of 05/11/2022) [facility]12-12[facility] History of Past illness Narrative* Problem Noted Date Resolved Date DM type 2 (diabetes mellitus, type 2) 08/06/2014 04/02/2016 Acquired renal cyst 05/18/2013 04/02/2016 Sleep apnea 07/01/2012 03/29/2015 Acute low back pain 10/24/2010 03/29/2015 Cyst of bone 06/02/2010 03/29/2015 SVT (supraventricular tachycardia) 01/06/2010 08/03/2016 Other and unspecified disc disorder of cervical region 11/14/2009 08/03/2016 Cyst 05/27/2009 03/29/2015 Other benign neoplasm of con nective and other soft tissue of unspecified site 04/01/2009 04/02/2016 TELANG///CAPILLARY DIS NEC/NOS 09/09/2008 0 03/29/2015 Unspecified hypertrophic and atrophic condition of skin 09/09/2008 04/02/2016 Actinic keratosis 07/02/2008 03/29/2015 Seborrheic Keratosis 07/02/2008 03/29/2015 SOLAR LENGINES///DYSCHROMIA OTHER 07/02/2008 03/22/2014 Other chronic dermatitis due to solar radiation 07/02/2008 03/29/2015 Iron deficiency anemia, unspecified 10/16/2007 04/02/2016 Anemia, unspecified 10/16/2007 03/29/2015 Hemorrhage of gastrointestinal tract, unspecifie d 05/08/2007 03/29/2015 Acute gastritis without mention of hemorrhage 04/02/2016 Anal fissure 05/08/2007 04/02/2016 Special screening for malignant neoplasms, colon 05/08/2007 03/29/2015 Ingrowing nail 10/15/2006 03/29/2015 Other acquired deformity of toe 10/15/2006 03/29/2015 Sciatica 07/25/2006 08/03/2016 Anal fistula 04/02/2016 Internal hemorrhoids without mention of complica tion 03/29/2015 Other symptoms involving digestive system(787.99 ) 03/29/2015 PMH - PAST MEDICAL HISTORY OF Overview: RIGHT KNEE ACL DEFICIENT -CHRONIC documented as of this encounter (statuses as of 06/15/2022) [facility]12-[facility] History of Past illness Narrative* Problem Noted Date Resolved Date DM type 2 (diabetes mellitus, type 2) 08/06/2014 04/02/2016 Acquired renal cyst 05/18/2013 04/02/2016 Sleep apnea 07/01/2012 03/29/2015 Acute low back pain 10/24/2010 03/29/2015 Cyst of bone 06/02/2010 03/29/2015 SVT (supraventricular tachycardia) 01/06/2010 08/03/2016 Other and unspecified disc disorder of cervical region 11/14/2009 08/03/2016 Cyst 05/27/2009 03/29/2015 Other benign neoplasm of con nective and other soft tissue of unspecified site 04/01/2009 04/02/2016 TELANG///CAPILLARY DIS NEC/NOS 09/09/2008 0 03/29/2015 Unspecified hypertrophic and atrophic condition of skin 09/09/2008 04/02/2016 Actinic keratosis 07/02/2008 03/29/2015 Seborrheic Keratosis 07/02/2008 03/29/2015 SOLAR LENGINES///DYSCHROMIA OTHER 07/02/2008 03/22/2014 Other chronic dermatitis due to solar radiation 07/02/2008 03/29/2015 Iron deficiency anemia, unspecified 10/16/2007 04/02/2016 Anemia, unspecified 10/16/2007 03/29/2015 Hemorrhage of gastrointestinal tract, unspecifie d 05/08/2007 03/29/2015 Acute gastritis without mention of hemorrhage 04/02/2016 Anal fissure 05/08/2007 04/02/2016 Special screening for malignant neoplasms, colon 05/08/2007 03/29/2015 Ingrowing nail 10/15/2006 03/29/2015 Other acquired deformity of toe 10/15/2006 03/29/2015 Sciatica 07/25/2006 08/03/2016 Anal fistula 04/02/2016 Internal hemorrhoids without mention of complica tion 03/29/2015 Other symptoms involving digestive system(787.99 ) 03/29/2015 PMH - PAST MEDICAL HISTORY OF Overview: RIGHT KNEE ACL DEFICIENT -CHRONIC documented as of this encounter (statuses as of 06/15/2022) [facility]12[facility] History of Past illness Narrative* Problem Noted Date Resolved Date DM type 2 (diabetes mellitus, type 2) 08/06/2014 04/02/2016 Acquired renal cyst 05/18/2013 04/02/2016 Sleep apnea 07/01/2012 03/29/2015 Acute low back pain 10/24/2010 03/29/2015 Cyst of bone 06/02/2010 03/29/2015 SVT (supraventricular tachycardia) 01/06/2010 08/03/2016 Other and unspecified disc disorder of cervical region 11/14/2009 08/03/2016 Cyst 05/27/2009 03/29/2015 Other benign neoplasm of con nective and other soft tissue of unspecified site 04/01/2009 04/02/2016 TELANG///CAPILLARY DIS NEC/NOS 09/09/2008 0 03/29/2015 Unspecified hypertrophic and atrophic condition of skin 09/09/2008 04/02/2016 Actinic keratosis 07/02/2008 03/29/2015 Seborrheic Keratosis 07/02/2008 03/29/2015 SOLAR LENGINES///DYSCHROMIA OTHER 07/02/2008 03/22/2014 Other chronic dermatitis due to solar radiation 07/02/2008 03/29/2015 Iron deficiency anemia, unspecified 10/16/2007 04/02/2016 Anemia, unspecified 10/16/2007 03/29/2015 Hemorrhage of gastrointestinal tract, unspecifie d 05/08/2007 03/29/2015 Acute gastritis without mention of hemorrhage 04/02/2016 Anal fissure 05/08/2007 04/02/2016 Special screening for malignant neoplasms, colon 05/08/2007 03/29/2015 Ingrowing nail 10/15/2006 03/29/2015 Other acquired deformity of toe 10/15/2006 03/29/2015 Sciatica 07/25/2006 08/03/2016 Anal fistula 04/02/2016 Internal hemorrhoids without mention of complica tion 03/29/2015 Other symptoms involving digestive system(787.99 ) 03/29/2015 PMH - PAST MEDICAL HISTORY OF Overview: RIGHT KNEE ACL DEFICIENT -CHRONIC documented as of this encounter (statuses as of 06/22/2022) [facility]12[facility] History of Past illness Narrative* Problem Noted Date Resolved Date DM type 2 (diabetes mellitus, type 2) 08/06/2014 04/02/2016 Acquired renal cyst 05/18/2013 04/02/2016 Sleep apnea 07/01/2012 03/29/2015 Acute low back pain 10/24/2010 03/29/2015 Cyst of bone 06/02/2010 03/29/2015 SVT (supraventricular tachycardia) 01/06/2010 08/03/2016 Other and unspecified disc disorder of cervical region 11/14/2009 08/03/2016 Cyst 05/27/2009 03/29/2015 Other benign neoplasm of con nective and other soft tissue of unspecified site 04/01/2009 04/02/2016 TELANG///CAPILLARY DIS NEC/NOS 09/09/2008 0 03/29/2015 Unspecified hypertrophic and atrophic condition of skin 09/09/2008 04/02/2016 Actinic keratosis 07/02/2008 03/29/2015 Seborrheic Keratosis 07/02/2008 03/29/2015 SOLAR LENGINES///DYSCHROMIA OTHER 07/02/2008 03/22/2014 Other chronic dermatitis due to solar radiation 07/02/2008 03/29/2015 Iron deficiency anemia, unspecified 10/16/2007 04/02/2016 Anemia, unspecified 10/16/2007 03/29/2015 Hemorrhage of gastrointestinal tract, unspecifie d 05/08/2007 03/29/2015 Acute gastritis without mention of hemorrhage 04/02/2016 Anal fissure 05/08/2007 04/02/2016 Special screening for malignant neoplasms, colon 05/08/2007 03/29/2015 Ingrowing nail 10/15/2006 03/29/2015 Other acquired deformity of toe 10/15/2006 03/29/2015 Sciatica 07/25/2006 08/03/2016 Anal fistula 04/02/2016 Internal hemorrhoids without mention of complica tion 03/29/2015 Other symptoms involving digestive system(787.99 ) 03/29/2015 PMH - PAST MEDICAL HISTORY OF Overview: RIGHT KNEE ACL DEFICIENT -CHRONIC documented as of this encounter (statuses as of 06/26/2022) [facility]12[facility] History of Past illness Narrative* Problem Noted Date Resolved Date DM type 2 (diabetes mellitus, type 2) 08/06/2014 04/02/2016 Acquired renal cyst 05/18/2013 04/02/2016 Sleep apnea 07/01/2012 03/29/2015 Acute low back pain 10/24/2010 03/29/2015 Cyst of bone 06/02/2010 03/29/2015 SVT (supraventricular tachycardia) 01/06/2010 08/03/2016 Other and unspecified disc disorder of cervical region 11/14/2009 08/03/2016 Cyst 05/27/2009 03/29/2015 Other benign neoplasm of con nective and other soft tissue of unspecified site 04/01/2009 04/02/2016 TELANG///CAPILLARY DIS NEC/NOS 09/09/2008 0 03/29/2015 Unspecified hypertrophic and atrophic condition of skin 09/09/2008 04/02/2016 Actinic keratosis 07/02/2008 03/29/2015 Seborrheic Keratosis 07/02/2008 03/29/2015 SOLAR LENGINES///DYSCHROMIA OTHER 07/02/2008 03/22/2014 Other chronic dermatitis due to solar radiation 07/02/2008 03/29/2015 Iron deficiency anemia, unspecified 10/16/2007 04/02/2016 Anemia, unspecified 10/16/2007 03/29/2015 Hemorrhage of gastrointestinal tract, unspecifie d 05/08/2007 03/29/2015 Acute gastritis without mention of hemorrhage 04/02/2016 Anal fissure 05/08/2007 04/02/2016 Special screening for malignant neoplasms, colon 05/08/2007 03/29/2015 Ingrowing nail 10/15/2006 03/29/2015 Other acquired deformity of toe 10/15/2006 03/29/2015 Sciatica 07/25/2006 08/03/2016 Anal fistula 04/02/2016 Internal hemorrhoids without mention of complica tion 03/29/2015 Other symptoms involving digestive system(787.99 ) 03/29/2015 PMH - PAST MEDICAL HISTORY OF Overview: RIGHT KNEE ACL DEFICIENT -CHRONIC documented as of this encounter (statuses as of 06/28/2022) [facility] History of Past illness Narrative* Problem Noted Date Resolved Date DM type 2 (diabetes mellitus, type 2) 08/06/2014 04/02/2016 Acquired renal cyst 05/18/2013 04/02/2016 Sleep apnea 07/01/2012 03/29/2015 Acute low back pain 10/24/2010 03/29/2015 Cyst of bone 06/02/2010 03/29/2015 SVT (supraventricular tachycardia) 01/06/2010 08/03/2016 Other and unspecified disc disorder of cervical region 11/14/2009 08/03/2016 Cyst 05/27/2009 03/29/2015 Other benign neoplasm of con nective and other soft tissue of unspecified site 04/01/2009 04/02/2016 TELANG///CAPILLARY DIS NEC/NOS 09/09/2008 0 03/29/2015 Unspecified hypertrophic and atrophic condition of skin 09/09/2008 04/02/2016 Actinic keratosis 07/02/2008 03/29/2015 Seborrheic Keratosis 07/02/2008 03/29/2015 SOLAR LENGINES///DYSCHROMIA OTHER 07/02/2008 03/22/2014 Other chronic dermatitis due to solar radiation 07/02/2008 03/29/2015 Iron deficiency anemia, unspecified 10/16/2007 04/02/2016 Anemia, unspecified 10/16/2007 03/29/2015 Hemorrhage of gastrointestinal tract, unspecifie d 05/08/2007 03/29/2015 Acute gastritis without mention of hemorrhage 04/02/2016 Anal fissure 05/08/2007 04/02/2016 Special screening for malignant neoplasms, colon 05/08/2007 03/29/2015 Ingrowing nail 10/15/2006 03/29/2015 Other acquired deformity of toe 10/15/2006 03/29/2015 Sciatica 07/25/2006 08/03/2016 Anal fistula 04/02/2016 Internal hemorrhoids without mention of complica tion 03/29/2015 Other symptoms involving digestive system(787.99 ) 03/29/2015 PMH - PAST MEDICAL HISTORY OF Overview: RIGHT KNEE ACL DEFICIENT -CHRONIC documented as of this encounter (statuses as of 06/28/2022) [facility] History of Past illness Narrative* Problem Noted Date Resolved Date DM type 2 (diabetes mellitus, type 2) 08/06/2014 04/02/2016 Acquired renal cyst 05/18/2013 04/02/2016 Sleep apnea 07/01/2012 03/29/2015 Acute low back pain 10/24/2010 03/29/2015 Cyst of bone 06/02/2010 03/29/2015 SVT (supraventricular tachycardia) 01/06/2010 08/03/2016 Other and unspecified disc disorder of cervical region 11/14/2009 08/03/2016 Cyst 05/27/2009 03/29/2015 Other benign neoplasm of con nective and other soft tissue of unspecified site 04/01/2009 04/02/2016 TELANG///CAPILLARY DIS NEC/NOS 09/09/2008 0 03/29/2015 Unspecified hypertrophic and atrophic condition of skin 09/09/2008 04/02/2016 Actinic keratosis 07/02/2008 03/29/2015 Seborrheic Keratosis 07/02/2008 03/29/2015 SOLAR LENGINES///DYSCHROMIA OTHER 07/02/2008 03/22/2014 Other chronic dermatitis due to solar radiation 07/02/2008 03/29/2015 Iron deficiency anemia, unspecified 10/16/2007 04/02/2016 Anemia, unspecified 10/16/2007 03/29/2015 Hemorrhage of gastrointestinal tract, unspecifie d 05/08/2007 03/29/2015 Acute gastritis without mention of hemorrhage 04/02/2016 Anal fissure 05/08/2007 04/02/2016 Special screening for malignant neoplasms, colon 05/08/2007 03/29/2015 Ingrowing nail 10/15/2006 03/29/2015 Other acquired deformity of toe 10/15/2006 03/29/2015 Sciatica 07/25/2006 08/03/2016 Anal fistula 04/02/2016 Internal hemorrhoids without mention of complica tion 03/29/2015 Other symptoms involving digestive system(787.99 ) 03/29/2015 PMH - PAST MEDICAL HISTORY OF Overview: RIGHT KNEE ACL DEFICIENT -CHRONIC documented as of this encounter (statuses as of 07/17/2022) [facility] History of Past illness Narrative* Problem Noted Date Resolved Date DM type 2 (diabetes mellitus, type 2) 08/06/2014 04/02/2016 Acquired renal cyst 05/18/2013 04/02/2016 Sleep apnea 07/01/2012 03/29/2015 Acute low back pain 10/24/2010 03/29/2015 Cyst of bone 06/02/2010 03/29/2015 SVT (supraventricular tachycardia) 01/06/2010 08/03/2016 Other and unspecified disc disorder of cervical region 11/14/2009 08/03/2016 Cyst 05/27/2009 03/29/2015 Other benign neoplasm of con nective and other soft tissue of unspecified site 04/01/2009 04/02/2016 TELANG///CAPILLARY DIS NEC/NOS 09/09/2008 0 03/29/2015 Unspecified hypertrophic and atrophic condition of skin 09/09/2008 04/02/2016 Actinic keratosis 07/02/2008 03/29/2015 Seborrheic Keratosis 07/02/2008 03/29/2015 SOLAR LENGINES///DYSCHROMIA OTHER 07/02/2008 03/22/2014 Other chronic dermatitis due to solar radiation 07/02/2008 03/29/2015 Iron deficiency anemia, unspecified 10/16/2007 04/02/2016 Anemia, unspecified 10/16/2007 03/29/2015 Hemorrhage of gastrointestinal tract, unspecifie d 05/08/2007 03/29/2015 Acute gastritis without mention of hemorrhage 04/02/2016 Anal fissure 05/08/2007 04/02/2016 Special screening for malignant neoplasms, colon 05/08/2007 03/29/2015 Ingrowing nail 10/15/2006 03/29/2015 Other acquired deformity of toe 10/15/2006 03/29/2015 Sciatica 07/25/2006 08/03/2016 Anal fistula 04/02/2016 Internal hemorrhoids without mention of complica tion 03/29/2015 Other symptoms involving digestive system(787.99 ) 03/29/2015 PMH - PAST MEDICAL HISTORY OF Overview: RIGHT KNEE ACL DEFICIENT -CHRONIC documented as of this encounter (statuses as of 07/20/2022) [facility] History of Past illness Narrative* Problem Noted Date Resolved Date DM type 2 (diabetes mellitus, type 2) 08/06/2014 04/02/2016 Acquired renal cyst 05/18/2013 04/02/2016 Sleep apnea 07/01/2012 03/29/2015 Acute low back pain 10/24/2010 03/29/2015 Cyst of bone 06/02/2010 03/29/2015 SVT (supraventricular tachycardia) 01/06/2010 08/03/2016 Other and unspecified disc disorder of cervical region 11/14/2009 08/03/2016 Cyst 05/27/2009 03/29/2015 Other benign neoplasm of con nective and other soft tissue of unspecified site 04/01/2009 04/02/2016 TELANG///CAPILLARY DIS NEC/NOS 09/09/2008 0 03/29/2015 Unspecified hypertrophic and atrophic condition of skin 09/09/2008 04/02/2016 Actinic keratosis 07/02/2008 03/29/2015 Seborrheic Keratosis 07/02/2008 03/29/2015 SOLAR LENGINES///DYSCHROMIA OTHER 07/02/2008 03/22/2014 Other chronic dermatitis due to solar radiation 07/02/2008 03/29/2015 Iron deficiency anemia, unspecified 10/16/2007 04/02/2016 Anemia, unspecified 10/16/2007 03/29/2015 Hemorrhage of gastrointestinal tract, unspecifie d 05/08/2007 03/29/2015 Acute gastritis without mention of hemorrhage 04/02/2016 Anal fissure 05/08/2007 04/02/2016 Special screening for malignant neoplasms, colon 05/08/2007 03/29/2015 Ingrowing nail 10/15/2006 03/29/2015 Other acquired deformity of toe 10/15/2006 03/29/2015 Sciatica 07/25/2006 08/03/2016 Anal fistula 04/02/2016 Internal hemorrhoids without mention of complica tion 03/29/2015 Other symptoms involving digestive system(787.99 ) 03/29/2015 PMH - PAST MEDICAL HISTORY OF Overview: RIGHT KNEE ACL DEFICIENT -CHRONIC documented as of this encounter (statuses as of 07/30/2022) [facility]12-12-2014 History of Past illness Narrative* Problem Noted Date Resolved Date DM type 2 (diabetes mellitus, type 2) 08/06/2014 04/02/2016 Acquired renal cyst 05/18/2013 04/02/2016 Sleep apnea 07/01/2012 03/29/2015 Acute low back pain 10/24/2010 03/29/2015 Cyst of bone 06/02/2010 03/29/2015 SVT (supraventricular tachycardia) 01/06/2010 08/03/2016 Other and unspecified disc disorder of cervical region 11/14/2009 08/03/2016 Cyst 05/27/2009 03/29/2015 Other benign neoplasm of con nective and other soft tissue of unspecified site 04/01/2009 04/02/2016 TELANG///CAPILLARY DIS NEC/NOS 09/09/2008 0 03/29/2015 Unspecified hypertrophic and atrophic condition of skin 09/09/2008 04/02/2016 Actinic keratosis 07/02/2008 03/29/2015 Seborrheic Keratosis 07/02/2008 03/29/2015 SOLAR LENGINES///DYSCHROMIA OTHER 07/02/2008 03/22/2014 Other chronic dermatitis due to solar radiation 07/02/2008 03/29/2015 Iron deficiency anemia, unspecified 10/16/2007 04/02/2016 Anemia, unspecified 10/16/2007 03/29/2015 Hemorrhage of gastrointestinal tract, unspecifie d 05/08/2007 03/29/2015 Acute gastritis without mention of hemorrhage 04/02/2016 Anal fissure 05/08/2007 04/02/2016 Special screening for malignant neoplasms, colon 05/08/2007 03/29/2015 Ingrowing nail 10/15/2006 03/29/2015 Other acquired deformity of toe 10/15/2006 03/29/2015 Sciatica 07/25/2006 08/03/2016 Anal fistula 04/02/2016 Internal hemorrhoids without mention of complica tion 03/29/2015 Other symptoms involving digestive system(787.99 ) 03/29/2015 PMH - PAST MEDICAL HISTORY OF Overview: RIGHT KNEE ACL DEFICIENT -CHRONIC documented as of this encounter (statuses as of 08/02/2022) [facility]12-12-2014 History of Past illness Narrative* Problem Noted Date Resolved Date DM type 2 (diabetes mellitus, type 2) 08/06/2014 04/02/2016 Acquired renal cyst 05/18/2013 04/02/2016 Sleep apnea 07/01/2012 03/29/2015 Acute low back pain 10/24/2010 03/29/2015 Cyst of bone 06/02/2010 03/29/2015 SVT (supraventricular tachycardia) 01/06/2010 08/03/2016 Other and unspecified disc disorder of cervical region 11/14/2009 08/03/2016 Cyst 05/27/2009 03/29/2015 Other benign neoplasm of con nective and other soft tissue of unspecified site 04/01/2009 04/02/2016 TELANG///CAPILLARY DIS NEC/NOS 09/09/2008 0 03/29/2015 Unspecified hypertrophic and atrophic condition of skin 09/09/2008 04/02/2016 Actinic keratosis 07/02/2008 03/29/2015 Seborrheic Keratosis 07/02/2008 03/29/2015 SOLAR LENGINES///DYSCHROMIA OTHER 07/02/2008 03/22/2014 Other chronic dermatitis due to solar radiation 07/02/2008 03/29/2015 Iron deficiency anemia, unspecified 10/16/2007 04/02/2016 Anemia, unspecified 10/16/2007 03/29/2015 Hemorrhage of gastrointestinal tract, unspecifie d 05/08/2007 03/29/2015 Acute gastritis without mention of hemorrhage 04/02/2016 Anal fissure 05/08/2007 04/02/2016 Special screening for malignant neoplasms, colon 05/08/2007 03/29/2015 Ingrowing nail 10/15/2006 03/29/2015 Other acquired deformity of toe 10/15/2006 03/29/2015 Sciatica 07/25/2006 08/03/2016 Anal fistula 04/02/2016 Internal hemorrhoids without mention of complica tion 03/29/2015 Other symptoms involving digestive system(787.99 ) 03/29/2015 PMH - PAST MEDICAL HISTORY OF Overview: RIGHT KNEE ACL DEFICIENT -CHRONIC documented as of this encounter (statuses as of 08/03/2022) [facility]12-12-[facility] History of Past illness Narrative* Problem Noted Date Resolved Date DM type 2 (diabetes mellitus, type 2) 08/06/2014 04/02/2016 Acquired renal cyst 05/18/2013 04/02/2016 Sleep apnea 07/01/2012 03/29/2015 Acute low back pain 10/24/2010 03/29/2015 Cyst of bone 06/02/2010 03/29/2015 SVT (supraventricular tachycardia) 01/06/2010 08/03/2016 Other and unspecified disc disorder of cervical region 11/14/2009 08/03/2016 Cyst 05/27/2009 03/29/2015 Other benign neoplasm of con nective and other soft tissue of unspecified site 04/01/2009 04/02/2016 TELANG///CAPILLARY DIS NEC/NOS 09/09/2008 0 03/29/2015 Unspecified hypertrophic and atrophic condition of skin 09/09/2008 04/02/2016 Actinic keratosis 07/02/2008 03/29/2015 Seborrheic Keratosis 07/02/2008 03/29/2015 SOLAR LENGINES///DYSCHROMIA OTHER 07/02/2008 03/22/2014 Other chronic dermatitis due to solar radiation 07/02/2008 03/29/2015 Iron deficiency anemia, unspecified 10/16/2007 04/02/2016 Anemia, unspecified 10/16/2007 03/29/2015 Hemorrhage of gastrointestinal tract, unspecifie d 05/08/2007 03/29/2015 Acute gastritis without mention of hemorrhage 04/02/2016 Anal fissure 05/08/2007 04/02/2016 Special screening for malignant neoplasms, colon 05/08/2007 03/29/2015 Ingrowing nail 10/15/2006 03/29/2015 Other acquired deformity of toe 10/15/2006 03/29/2015 Sciatica 07/25/2006 08/03/2016 Anal fistula 04/02/2016 Internal hemorrhoids without mention of complica tion 03/29/2015 Other symptoms involving digestive system(787.99 ) 03/29/2015 PMH - PAST MEDICAL HISTORY OF Overview: RIGHT KNEE ACL DEFICIENT -CHRONIC documented as of this encounter (statuses as of 08/05/2022) [facility]12-12-[facility] History of Past illness Narrative* Problem Noted Date Resolved Date DM type 2 (diabetes mellitus, type 2) 08/06/2014 04/02/2016 Acquired renal cyst 05/18/2013 04/02/2016 Sleep apnea 07/01/2012 03/29/2015 Acute low back pain 10/24/2010 03/29/2015 Cyst of bone 06/02/2010 03/29/2015 SVT (supraventricular tachycardia) 01/06/2010 08/03/2016 Other and unspecified disc disorder of cervical region 11/14/2009 08/03/2016 Cyst 05/27/2009 03/29/2015 Other benign neoplasm of con nective and other soft tissue of unspecified site 04/01/2009 04/02/2016 TELANG///CAPILLARY DIS NEC/NOS 09/09/2008 0 03/29/2015 Unspecified hypertrophic and atrophic condition of skin 09/09/2008 04/02/2016 Actinic keratosis 07/02/2008 03/29/2015 Seborrheic Keratosis 07/02/2008 03/29/2015 SOLAR LENGINES///DYSCHROMIA OTHER 07/02/2008 03/22/2014 Other chronic dermatitis due to solar radiation 07/02/2008 03/29/2015 Iron deficiency anemia, unspecified 10/16/2007 04/02/2016 Anemia, unspecified 10/16/2007 03/29/2015 Hemorrhage of gastrointestinal tract, unspecifie d 05/08/2007 03/29/2015 Acute gastritis without mention of hemorrhage 04/02/2016 Anal fissure 05/08/2007 04/02/2016 Special screening for malignant neoplasms, colon 05/08/2007 03/29/2015 Ingrowing nail 10/15/2006 03/29/2015 Other acquired deformity of toe 10/15/2006 03/29/2015 Sciatica 07/25/2006 08/03/2016 Anal fistula 04/02/2016 Internal hemorrhoids without mention of complica tion 03/29/2015 Other symptoms involving digestive system(787.99 ) 03/29/2015 PMH - PAST MEDICAL HISTORY OF Overview: RIGHT KNEE ACL DEFICIENT -CHRONIC documented as of this encounter (statuses as of 09/07/2022) [facility]12-12-[facility] History of Past illness Narrative* Problem Noted Date Resolved Date DM type 2 (diabetes mellitus, type 2) 08/06/2014 04/02/2016 Acquired renal cyst 05/18/2013 04/02/2016 Sleep apnea 07/01/2012 03/29/2015 Acute low back pain 10/24/2010 03/29/2015 Cyst of bone 06/02/2010 03/29/2015 SVT (supraventricular tachycardia) 01/06/2010 08/03/2016 Other and unspecified disc disorder of cervical region 11/14/2009 08/03/2016 Cyst 05/27/2009 03/29/2015 Other benign neoplasm of con nective and other soft tissue of unspecified site 04/01/2009 04/02/2016 TELANG///CAPILLARY DIS NEC/NOS 09/09/2008 0 03/29/2015 Unspecified hypertrophic and atrophic condition of skin 09/09/2008 04/02/2016 Actinic keratosis 07/02/2008 03/29/2015 Seborrheic Keratosis 07/02/2008 03/29/2015 SOLAR LENGINES///DYSCHROMIA OTHER 07/02/2008 03/22/2014 Other chronic dermatitis due to solar radiation 07/02/2008 03/29/2015 Iron deficiency anemia, unspecified 10/16/2007 04/02/2016 Anemia, unspecified 10/16/2007 03/29/2015 Hemorrhage of gastrointestinal tract, unspecifie d 05/08/2007 03/29/2015 Acute gastritis without mention of hemorrhage 04/02/2016 Anal fissure 05/08/2007 04/02/2016 Special screening for malignant neoplasms, colon 05/08/2007 03/29/2015 Ingrowing nail 10/15/2006 03/29/2015 Other acquired deformity of toe 10/15/2006 03/29/2015 Sciatica 07/25/2006 08/03/2016 Anal fistula 04/02/2016 Internal hemorrhoids without mention of complica tion 03/29/2015 Other symptoms involving digestive system(787.99 ) 03/29/2015 PMH - PAST MEDICAL HISTORY OF Overview: RIGHT KNEE ACL DEFICIENT -CHRONIC documented as of this encounter (statuses as of 09/12/2022) [facility]12-12-[facility] History of Past illness Narrative* Problem Noted Date Resolved Date DM type 2 (diabetes mellitus, type 2) 08/06/2014 04/02/2016 Acquired renal cyst 05/18/2013 04/02/2016 Sleep apnea 07/01/2012 03/29/2015 Acute low back pain 10/24/2010 03/29/2015 Cyst of bone 06/02/2010 03/29/2015 SVT (supraventricular tachycardia) 01/06/2010 08/03/2016 Other and unspecified disc disorder of cervical region 11/14/2009 08/03/2016 Cyst 05/27/2009 03/29/2015 Other benign neoplasm of con nective and other soft tissue of unspecified site 04/01/2009 04/02/2016 TELANG///CAPILLARY DIS NEC/NOS 09/09/2008 0 03/29/2015 Unspecified hypertrophic and atrophic condition of skin 09/09/2008 04/02/2016 Actinic keratosis 07/02/2008 03/29/2015 Seborrheic Keratosis 07/02/2008 03/29/2015 SOLAR LENGINES///DYSCHROMIA OTHER 07/02/2008 03/22/2014 Other chronic dermatitis due to solar radiation 07/02/2008 03/29/2015 Iron deficiency anemia, unspecified 10/16/2007 04/02/2016 Anemia, unspecified 10/16/2007 03/29/2015 Hemorrhage of gastrointestinal tract, unspecifie d 05/08/2007 03/29/2015 Acute gastritis without mention of hemorrhage 04/02/2016 Anal fissure 05/08/2007 04/02/2016 Special screening for malignant neoplasms, colon 05/08/2007 03/29/2015 Ingrowing nail 10/15/2006 03/29/2015 Other acquired deformity of toe 10/15/2006 03/29/2015 Sciatica 07/25/2006 08/03/2016 Anal fistula 04/02/2016 Internal hemorrhoids without mention of complica tion 03/29/2015 Other symptoms involving digestive system(787.99 ) 03/29/2015 PMH - PAST MEDICAL HISTORY OF Overview: RIGHT KNEE ACL DEFICIENT -CHRONIC documented as of this encounter (statuses as of 09/17/2022) [facility]12-12-[facility] History of Past illness Narrative* Problem Noted Date Resolved Date DM type 2 (diabetes mellitus, type 2) 08/06/2014 04/02/2016 Acquired renal cyst 05/18/2013 04/02/2016 Sleep apnea 07/01/2012 03/29/2015 Acute low back pain 10/24/2010 03/29/2015 Cyst of bone 06/02/2010 03/29/2015 SVT (supraventricular tachycardia) 01/06/2010 08/03/2016 Other and unspecified disc disorder of cervical region 11/14/2009 08/03/2016 Cyst 05/27/2009 03/29/2015 Other benign neoplasm of con nective and other soft tissue of unspecified site 04/01/2009 04/02/2016 TELANG///CAPILLARY DIS NEC/NOS 09/09/2008 0 03/29/2015 Unspecified hypertrophic and atrophic condition of skin 09/09/2008 04/02/2016 Actinic keratosis 07/02/2008 03/29/2015 Seborrheic Keratosis 07/02/2008 03/29/2015 SOLAR LENGINES///DYSCHROMIA OTHER 07/02/2008 03/22/2014 Other chronic dermatitis due to solar radiation 07/02/2008 03/29/2015 Iron deficiency anemia, unspecified 10/16/2007 04/02/2016 Anemia, unspecified 10/16/2007 03/29/2015 Hemorrhage of gastrointestinal tract, unspecifie d 05/08/2007 03/29/2015 Acute gastritis without mention of hemorrhage 04/02/2016 Anal fissure 05/08/2007 04/02/2016 Special screening for malignant neoplasms, colon 05/08/2007 03/29/2015 Ingrowing nail 10/15/2006 03/29/2015 Other acquired deformity of toe 10/15/2006 03/29/2015 Sciatica 07/25/2006 08/03/2016 Anal fistula 04/02/2016 Internal hemorrhoids without mention of complica tion 03/29/2015 Other symptoms involving digestive system(787.99 ) 03/29/2015 PMH - PAST MEDICAL HISTORY OF Overview: RIGHT KNEE ACL DEFICIENT -CHRONIC documented as of this encounter (statuses as of 09/18/2022) [facility]12-12-[facility] History of Past illness Narrative* Problem Noted Date Resolved Date DM type 2 (diabetes mellitus, type 2) 08/06/2014 04/02/2016 Acquired renal cyst 05/18/2013 04/02/2016 Sleep apnea 07/01/2012 03/29/2015 Acute low back pain 10/24/2010 03/29/2015 Cyst of bone 06/02/2010 03/29/2015 SVT (supraventricular tachycardia) 01/06/2010 08/03/2016 Other and unspecified disc disorder of cervical region 11/14/2009 08/03/2016 Cyst 05/27/2009 03/29/2015 Other benign neoplasm of con nective and other soft tissue of unspecified site 04/01/2009 04/02/2016 TELANG///CAPILLARY DIS NEC/NOS 09/09/2008 0 03/29/2015 Unspecified hypertrophic and atrophic condition of skin 09/09/2008 04/02/2016 Actinic keratosis 07/02/2008 03/29/2015 Seborrheic Keratosis 07/02/2008 03/29/2015 SOLAR LENGINES///DYSCHROMIA OTHER 07/02/2008 03/22/2014 Other chronic dermatitis due to solar radiation 07/02/2008 03/29/2015 Iron deficiency anemia, unspecified 10/16/2007 04/02/2016 Anemia, unspecified 10/16/2007 03/29/2015 Hemorrhage of gastrointestinal tract, unspecifie d 05/08/2007 03/29/2015 Acute gastritis without mention of hemorrhage 04/02/2016 Anal fissure 05/08/2007 04/02/2016 Special screening for malignant neoplasms, colon 05/08/2007 03/29/2015 Ingrowing nail 10/15/2006 03/29/2015 Other acquired deformity of toe 10/15/2006 03/29/2015 Sciatica 07/25/2006 08/03/2016 Anal fistula 04/02/2016 Internal hemorrhoids without mention of complica tion 03/29/2015 Other symptoms involving digestive system(787.99 ) 03/29/2015 PMH - PAST MEDICAL HISTORY OF Overview: RIGHT KNEE ACL DEFICIENT -CHRONIC documented as of this encounter (statuses as of 09/18/2022) [facility]12-12[facility] History of Past illness Narrative* Problem Noted Date Resolved Date DM type 2 (diabetes mellitus, type 2) 08/06/2014 04/02/2016 Acquired renal cyst 05/18/2013 04/02/2016 Sleep apnea 07/01/2012 03/29/2015 Acute low back pain 10/24/2010 03/29/2015 Cyst of bone 06/02/2010 03/29/2015 SVT (supraventricular tachycardia) 01/06/2010 08/03/2016 Other and unspecified disc disorder of cervical region 11/14/2009 08/03/2016 Cyst 05/27/2009 03/29/2015 Other benign neoplasm of con nective and other soft tissue of unspecified site 04/01/2009 04/02/2016 TELANG///CAPILLARY DIS NEC/NOS 09/09/2008 0 03/29/2015 Unspecified hypertrophic and atrophic condition of skin 09/09/2008 04/02/2016 Actinic keratosis 07/02/2008 03/29/2015 Seborrheic Keratosis 07/02/2008 03/29/2015 SOLAR LENGINES///DYSCHROMIA OTHER 07/02/2008 03/22/2014 Other chronic dermatitis due to solar radiation 07/02/2008 03/29/2015 Iron deficiency anemia, unspecified 10/16/2007 04/02/2016 Anemia, unspecified 10/16/2007 03/29/2015 Hemorrhage of gastrointestinal tract, unspecifie d 05/08/2007 03/29/2015 Acute gastritis without mention of hemorrhage 04/02/2016 Anal fissure 05/08/2007 04/02/2016 Special screening for malignant neoplasms, colon 05/08/2007 03/29/2015 Ingrowing nail 10/15/2006 03/29/2015 Other acquired deformity of toe 10/15/2006 03/29/2015 Sciatica 07/25/2006 08/03/2016 Anal fistula 04/02/2016 Internal hemorrhoids without mention of complica tion 03/29/2015 Other symptoms involving digestive system(787.99 ) 03/29/2015 PMH - PAST MEDICAL HISTORY OF Overview: RIGHT KNEE ACL DEFICIENT -CHRONIC documented as of this encounter (statuses as of 10/09/2022) [facility]12[facility] History of Past illness Narrative* Problem Noted Date Resolved Date DM type 2 (diabetes mellitus, type 2) 08/06/2014 04/02/2016 Acquired renal cyst 05/18/2013 04/02/2016 Sleep apnea 07/01/2012 03/29/2015 Acute low back pain 10/24/2010 03/29/2015 Cyst of bone 06/02/2010 03/29/2015 SVT (supraventricular tachycardia) 01/06/2010 08/03/2016 Other and unspecified disc disorder of cervical region 11/14/2009 08/03/2016 Cyst 05/27/2009 03/29/2015 Other benign neoplasm of con nective and other soft tissue of unspecified site 04/01/2009 04/02/2016 TELANG///CAPILLARY DIS NEC/NOS 09/09/2008 0 03/29/2015 Unspecified hypertrophic and atrophic condition of skin 09/09/2008 04/02/2016 Actinic keratosis 07/02/2008 03/29/2015 Seborrheic Keratosis 07/02/2008 03/29/2015 SOLAR LENGINES///DYSCHROMIA OTHER 07/02/2008 03/22/2014 Other chronic dermatitis due to solar radiation 07/02/2008 03/29/2015 Iron deficiency anemia, unspecified 10/16/2007 04/02/2016 Anemia, unspecified 10/16/2007 03/29/2015 Hemorrhage of gastrointestinal tract, unspecifie d 05/08/2007 03/29/2015 Acute gastritis without mention of hemorrhage 04/02/2016 Anal fissure 05/08/2007 04/02/2016 Special screening for malignant neoplasms, colon 05/08/2007 03/29/2015 Ingrowing nail 10/15/2006 03/29/2015 Other acquired deformity of toe 10/15/2006 03/29/2015 Sciatica 07/25/2006 08/03/2016 Anal fistula 04/02/2016 Internal hemorrhoids without mention of complica tion 03/29/2015 Other symptoms involving digestive system(787.99 ) 03/29/2015 PMH - PAST MEDICAL HISTORY OF Overview: RIGHT KNEE ACL DEFICIENT -CHRONIC documented as of this encounter (statuses as of 10/10/2022) [facility]12[facility] History of Past illness Narrative* Problem Noted Date Resolved Date DM type 2 (diabetes mellitus, type 2) 08/06/2014 04/02/2016 Acquired renal cyst 05/18/2013 04/02/2016 Sleep apnea 07/01/2012 03/29/2015 Acute low back pain 10/24/2010 03/29/2015 Cyst of bone 06/02/2010 03/29/2015 SVT (supraventricular tachycardia) 01/06/2010 08/03/2016 Other and unspecified disc disorder of cervical region 11/14/2009 08/03/2016 Cyst 05/27/2009 03/29/2015 Other benign neoplasm of con nective and other soft tissue of unspecified site 04/01/2009 04/02/2016 TELANG///CAPILLARY DIS NEC/NOS 09/09/2008 0 03/29/2015 Unspecified hypertrophic and atrophic condition of skin 09/09/2008 04/02/2016 Actinic keratosis 07/02/2008 03/29/2015 Seborrheic Keratosis 07/02/2008 03/29/2015 SOLAR LENGINES///DYSCHROMIA OTHER 07/02/2008 03/22/2014 Other chronic dermatitis due to solar radiation 07/02/2008 03/29/2015 Iron deficiency anemia, unspecified 10/16/2007 04/02/2016 Anemia, unspecified 10/16/2007 03/29/2015 Hemorrhage of gastrointestinal tract, unspecifie d 05/08/2007 03/29/2015 Acute gastritis without mention of hemorrhage 04/02/2016 Anal fissure 05/08/2007 04/02/2016 Special screening for malignant neoplasms, colon 05/08/2007 03/29/2015 Ingrowing nail 10/15/2006 03/29/2015 Other acquired deformity of toe 10/15/2006 03/29/2015 Sciatica 07/25/2006 08/03/2016 Anal fistula 04/02/2016 Internal hemorrhoids without mention of complica tion 03/29/2015 Other symptoms involving digestive system(787.99 ) 03/29/2015 PMH - PAST MEDICAL HISTORY OF Overview: RIGHT KNEE ACL DEFICIENT -CHRONIC documented as of this encounter (statuses as of 11/02/2022) [facility] History of Past illness Narrative* Problem Noted Date Resolved Date DM type 2 (diabetes mellitus, type 2) 08/06/2014 04/02/2016 Acquired renal cyst 05/18/2013 04/02/2016 Sleep apnea 07/01/2012 03/29/2015 Acute low back pain 10/24/2010 03/29/2015 Cyst of bone 06/02/2010 03/29/2015 SVT (supraventricular tachycardia) 01/06/2010 08/03/2016 Other and unspecified disc disorder of cervical region 11/14/2009 08/03/2016 Cyst 05/27/2009 03/29/2015 Other benign neoplasm of con nective and other soft tissue of unspecified site 04/01/2009 04/02/2016 TELANG///CAPILLARY DIS NEC/NOS 09/09/2008 0 03/29/2015 Unspecified hypertrophic and atrophic condition of skin 09/09/2008 04/02/2016 Actinic keratosis 07/02/2008 03/29/2015 Seborrheic Keratosis 07/02/2008 03/29/2015 SOLAR LENGINES///DYSCHROMIA OTHER 07/02/2008 03/22/2014 Other chronic dermatitis due to solar radiation 07/02/2008 03/29/2015 Iron deficiency anemia, unspecified 10/16/2007 04/02/2016 Anemia, unspecified 10/16/2007 03/29/2015 Hemorrhage of gastrointestinal tract, unspecifie d 05/08/2007 03/29/2015 Acute gastritis without mention of hemorrhage 04/02/2016 Anal fissure 05/08/2007 04/02/2016 Special screening for malignant neoplasms, colon 05/08/2007 03/29/2015 Ingrowing nail 10/15/2006 03/29/2015 Other acquired deformity of toe 10/15/2006 03/29/2015 Sciatica 07/25/2006 08/03/2016 Anal fistula 04/02/2016 Internal hemorrhoids without mention of complica tion 03/29/2015 Other symptoms involving digestive system(787.99 ) 03/29/2015 PMH - PAST MEDICAL HISTORY OF Overview: RIGHT KNEE ACL DEFICIENT -CHRONIC documented as of this encounter (statuses as of 11/15/2022) [facility] History of Past illness Narrative* Problem Noted Date Resolved Date DM type 2 (diabetes mellitus, type 2) 08/06/2014 04/02/2016 Acquired renal cyst 05/18/2013 04/02/2016 Sleep apnea 07/01/2012 03/29/2015 Acute low back pain 10/24/2010 03/29/2015 Cyst of bone 06/02/2010 03/29/2015 SVT (supraventricular tachycardia) 01/06/2010 08/03/2016 Other and unspecified disc disorder of cervical region 11/14/2009 08/03/2016 Cyst 05/27/2009 03/29/2015 Other benign neoplasm of con nective and other soft tissue of unspecified site 04/01/2009 04/02/2016 TELANG///CAPILLARY DIS NEC/NOS 09/09/2008 0 03/29/2015 Unspecified hypertrophic and atrophic condition of skin 09/09/2008 04/02/2016 Actinic keratosis 07/02/2008 03/29/2015 Seborrheic Keratosis 07/02/2008 03/29/2015 SOLAR LENGINES///DYSCHROMIA OTHER 07/02/2008 03/22/2014 Other chronic dermatitis due to solar radiation 07/02/2008 03/29/2015 Iron deficiency anemia, unspecified 10/16/2007 04/02/2016 Anemia, unspecified 10/16/2007 03/29/2015 Hemorrhage of gastrointestinal tract, unspecifie d 05/08/2007 03/29/2015 Acute gastritis without mention of hemorrhage 04/02/2016 Anal fissure 05/08/2007 04/02/2016 Special screening for malignant neoplasms, colon 05/08/2007 03/29/2015 Ingrowing nail 10/15/2006 03/29/2015 Other acquired deformity of toe 10/15/2006 03/29/2015 Sciatica 07/25/2006 08/03/2016 Anal fistula 04/02/2016 Internal hemorrhoids without mention of complica tion 03/29/2015 Other symptoms involving digestive system(787.99 ) 03/29/2015 PMH - PAST MEDICAL HISTORY OF Overview: RIGHT KNEE ACL DEFICIENT -CHRONIC documented as of this encounter (statuses as of 11/15/2022) [facility] History of Past illness Narrative* Problem Noted Date Resolved Date DM type 2 (diabetes mellitus, type 2) 08/06/2014 04/02/2016 Acquired renal cyst 05/18/2013 04/02/2016 Sleep apnea 07/01/2012 03/29/2015 Acute low back pain 10/24/2010 03/29/2015 Cyst of bone 06/02/2010 03/29/2015 SVT (supraventricular tachycardia) 01/06/2010 08/03/2016 Other and unspecified disc disorder of cervical region 11/14/2009 08/03/2016 Cyst 05/27/2009 03/29/2015 Other benign neoplasm of con nective and other soft tissue of unspecified site 04/01/2009 04/02/2016 TELANG///CAPILLARY DIS NEC/NOS 09/09/2008 0 03/29/2015 Unspecified hypertrophic and atrophic condition of skin 09/09/2008 04/02/2016 Actinic keratosis 07/02/2008 03/29/2015 Seborrheic Keratosis 07/02/2008 03/29/2015 SOLAR LENGINES///DYSCHROMIA OTHER 07/02/2008 03/22/2014 Other chronic dermatitis due to solar radiation 07/02/2008 03/29/2015 Iron deficiency anemia, unspecified 10/16/2007 04/02/2016 Anemia, unspecified 10/16/2007 03/29/2015 Hemorrhage of gastrointestinal tract, unspecifie d 05/08/2007 03/29/2015 Acute gastritis without mention of hemorrhage 04/02/2016 Anal fissure 05/08/2007 04/02/2016 Special screening for malignant neoplasms, colon 05/08/2007 03/29/2015 Ingrowing nail 10/15/2006 03/29/2015 Other acquired deformity of toe 10/15/2006 03/29/2015 Sciatica 07/25/2006 08/03/2016 Anal fistula 04/02/2016 Internal hemorrhoids without mention of complica tion 03/29/2015 Other symptoms involving digestive system(787.99 ) 03/29/2015 PMH - PAST MEDICAL HISTORY OF Overview: RIGHT KNEE ACL DEFICIENT -CHRONIC documented as of this encounter (statuses as of 12/08/2022) [facility]12-12-2014 History of Past illness Narrative* Problem Noted Date Resolved Date DM type 2 (diabetes mellitus, type 2) 08/06/2014 04/02/2016 Acquired renal cyst 05/18/2013 04/02/2016 Sleep apnea 07/01/2012 03/29/2015 Acute low back pain 10/24/2010 03/29/2015 Cyst of bone 06/02/2010 03/29/2015 SVT (supraventricular tachycardia) 01/06/2010 08/03/2016 Other and unspecified disc disorder of cervical region 11/14/2009 08/03/2016 Cyst 05/27/2009 03/29/2015 Other benign neoplasm of con nective and other soft tissue of unspecified site 04/01/2009 04/02/2016 TELANG///CAPILLARY DIS NEC/NOS 09/09/2008 0 03/29/2015 Unspecified hypertrophic and atrophic condition of skin 09/09/2008 04/02/2016 Actinic keratosis 07/02/2008 03/29/2015 Seborrheic Keratosis 07/02/2008 03/29/2015 SOLAR LENGINES///DYSCHROMIA OTHER 07/02/2008 03/22/2014 Other chronic dermatitis due to solar radiation 07/02/2008 03/29/2015 Iron deficiency anemia, unspecified 10/16/2007 04/02/2016 Anemia, unspecified 10/16/2007 03/29/2015 Hemorrhage of gastrointestinal tract, unspecifie d 05/08/2007 03/29/2015 Acute gastritis without mention of hemorrhage 04/02/2016 Anal fissure 05/08/2007 04/02/2016 Special screening for malignant neoplasms, colon 05/08/2007 03/29/2015 Ingrowing nail 10/15/2006 03/29/2015 Other acquired deformity of toe 10/15/2006 03/29/2015 Sciatica 07/25/2006 08/03/2016 Anal fistula 04/02/2016 Internal hemorrhoids without mention of complica tion 03/29/2015 Other symptoms involving digestive system(787.99 ) 03/29/2015 PMH - PAST MEDICAL HISTORY OF Overview: RIGHT KNEE ACL DEFICIENT -CHRONIC documented as of this encounter (statuses as of 12/27/2022) [facility]12-12-[facility] History of Past illness Narrative* Problem Noted Date Resolved Date DM type 2 (diabetes mellitus, type 2) 08/06/2014 04/02/2016 Acquired renal cyst 05/18/2013 04/02/2016 Sleep apnea 07/01/2012 03/29/2015 Acute low back pain 10/24/2010 03/29/2015 Cyst of bone 06/02/2010 03/29/2015 SVT (supraventricular tachycardia) 01/06/2010 08/03/2016 Other and unspecified disc disorder of cervical region 11/14/2009 08/03/2016 Cyst 05/27/2009 03/29/2015 Other benign neoplasm of con nective and other soft tissue of unspecified site 04/01/2009 04/02/2016 TELANG///CAPILLARY DIS NEC/NOS 09/09/2008 0 03/29/2015 Unspecified hypertrophic and atrophic condition of skin 09/09/2008 04/02/2016 Actinic keratosis 07/02/2008 03/29/2015 Seborrheic Keratosis 07/02/2008 03/29/2015 SOLAR LENGINES///DYSCHROMIA OTHER 07/02/2008 03/22/2014 Other chronic dermatitis due to solar radiation 07/02/2008 03/29/2015 Iron deficiency anemia, unspecified 10/16/2007 04/02/2016 Anemia, unspecified 10/16/2007 03/29/2015 Hemorrhage of gastrointestinal tract, unspecifie d 05/08/2007 03/29/2015 Acute gastritis without mention of hemorrhage 04/02/2016 Anal fissure 05/08/2007 04/02/2016 Special screening for malignant neoplasms, colon 05/08/2007 03/29/2015 Ingrowing nail 10/15/2006 03/29/2015 Other acquired deformity of toe 10/15/2006 03/29/2015 Sciatica 07/25/2006 08/03/2016 Anal fistula 04/02/2016 Internal hemorrhoids without mention of complica tion 03/29/2015 Other symptoms involving digestive system(787.99 ) 03/29/2015 PMH - PAST MEDICAL HISTORY OF Overview: RIGHT KNEE ACL DEFICIENT -CHRONIC documented as of this encounter (statuses as of 12/31/2022) [facility]12-12[facility] History of Past illness Narrative* Problem Noted Date Resolved Date DM type 2 (diabetes mellitus, type 2) 08/06/2014 04/02/2016 Acquired renal cyst 05/18/2013 04/02/2016 Sleep apnea 07/01/2012 03/29/2015 Acute low back pain 10/24/2010 03/29/2015 Cyst of bone 06/02/2010 03/29/2015 SVT (supraventricular tachycardia) 01/06/2010 08/03/2016 Other and unspecified disc disorder of cervical region 11/14/2009 08/03/2016 Cyst 05/27/2009 03/29/2015 Other benign neoplasm of con nective and other soft tissue of unspecified site 04/01/2009 04/02/2016 TELANG///CAPILLARY DIS NEC/NOS 09/09/2008 0 03/29/2015 Unspecified hypertrophic and atrophic condition of skin 09/09/2008 04/02/2016 Actinic keratosis 07/02/2008 03/29/2015 Seborrheic Keratosis 07/02/2008 03/29/2015 SOLAR LENGINES///DYSCHROMIA OTHER 07/02/2008 03/22/2014 Other chronic dermatitis due to solar radiation 07/02/2008 03/29/2015 Iron deficiency anemia, unspecified 10/16/2007 04/02/2016 Anemia, unspecified 10/16/2007 03/29/2015 Hemorrhage of gastrointestinal tract, unspecifie d 05/08/2007 03/29/2015 Acute gastritis without mention of hemorrhage 04/02/2016 Anal fissure 05/08/2007 04/02/2016 Special screening for malignant neoplasms, colon 05/08/2007 03/29/2015 Ingrowing nail 10/15/2006 03/29/2015 Other acquired deformity of toe 10/15/2006 03/29/2015 Sciatica 07/25/2006 08/03/2016 Anal fistula 04/02/2016 Internal hemorrhoids without mention of complica tion 03/29/2015 Other symptoms involving digestive system(787.99 ) 03/29/2015 PMH - PAST MEDICAL HISTORY OF Overview: RIGHT KNEE ACL DEFICIENT -CHRONIC documented as of this encounter (statuses as of 01/02/2023) [facility]12-12-[facility] History of Past illness Narrative* Problem Noted Date Resolved Date DM type 2 (diabetes mellitus, type 2) 08/06/2014 04/02/2016 Acquired renal cyst 05/18/2013 04/02/2016 Sleep apnea 07/01/2012 03/29/2015 Acute low back pain 10/24/2010 03/29/2015 Cyst of bone 06/02/2010 03/29/2015 SVT (supraventricular tachycardia) 01/06/2010 08/03/2016 Other and unspecified disc disorder of cervical region 11/14/2009 08/03/2016 Cyst 05/27/2009 03/29/2015 Other benign neoplasm of con nective and other soft tissue of unspecified site 04/01/2009 04/02/2016 TELANG///CAPILLARY DIS NEC/NOS 09/09/2008 0 03/29/2015 Unspecified hypertrophic and atrophic condition of skin 09/09/2008 04/02/2016 Actinic keratosis 07/02/2008 03/29/2015 Seborrheic Keratosis 07/02/2008 03/29/2015 SOLAR LENGINES///DYSCHROMIA OTHER 07/02/2008 03/22/2014 Other chronic dermatitis due to solar radiation 07/02/2008 03/29/2015 Iron deficiency anemia, unspecified 10/16/2007 04/02/2016 Anemia, unspecified 10/16/2007 03/29/2015 Hemorrhage of gastrointestinal tract, unspecifie d 05/08/2007 03/29/2015 Acute gastritis without mention of hemorrhage 04/02/2016 Anal fissure 05/08/2007 04/02/2016 Special screening for malignant neoplasms, colon 05/08/2007 03/29/2015 Ingrowing nail 10/15/2006 03/29/2015 Other acquired deformity of toe 10/15/2006 03/29/2015 Sciatica 07/25/2006 08/03/2016 Anal fistula 04/02/2016 Internal hemorrhoids without mention of complica tion 03/29/2015 Other symptoms involving digestive system(787.99 ) 03/29/2015 PMH - PAST MEDICAL HISTORY OF Overview: RIGHT KNEE ACL DEFICIENT -CHRONIC documented as of this encounter (statuses as of 01/28/2023) [facility]12-12-[facility] History of Past illness Narrative* Problem Noted Date Resolved Date DM type 2 (diabetes mellitus, type 2) 08/06/2014 04/02/2016 Acquired renal cyst 05/18/2013 04/02/2016 Sleep apnea 07/01/2012 03/29/2015 Acute low back pain 10/24/2010 03/29/2015 Cyst of bone 06/02/2010 03/29/2015 SVT (supraventricular tachycardia) 01/06/2010 08/03/2016 Other and unspecified disc disorder of cervical region 11/14/2009 08/03/2016 Cyst 05/27/2009 03/29/2015 Other benign neoplasm of con nective and other soft tissue of unspecified site 04/01/2009 04/02/2016 TELANG///CAPILLARY DIS NEC/NOS 09/09/2008 0 03/29/2015 Unspecified hypertrophic and atrophic condition of skin 09/09/2008 04/02/2016 Actinic keratosis 07/02/2008 03/29/2015 Seborrheic Keratosis 07/02/2008 03/29/2015 SOLAR LENGINES///DYSCHROMIA OTHER 07/02/2008 03/22/2014 Other chronic dermatitis due to solar radiation 07/02/2008 03/29/2015 Iron deficiency anemia, unspecified 10/16/2007 04/02/2016 Anemia, unspecified 10/16/2007 03/29/2015 Hemorrhage of gastrointestinal tract, unspecifie d 05/08/2007 03/29/2015 Acute gastritis without mention of hemorrhage 04/02/2016 Anal fissure 05/08/2007 04/02/2016 Special screening for malignant neoplasms, colon 05/08/2007 03/29/2015 Ingrowing nail 10/15/2006 03/29/2015 Other acquired deformity of toe 10/15/2006 03/29/2015 Sciatica 07/25/2006 08/03/2016 Anal fistula 04/02/2016 Internal hemorrhoids without mention of complica tion 03/29/2015 Other symptoms involving digestive system(787.99 ) 03/29/2015 PMH - PAST MEDICAL HISTORY OF Overview: RIGHT KNEE ACL DEFICIENT -CHRONIC documented as of this encounter (statuses as of 02/22/2023) [facility]12-[facility] History of Past illness Narrative* Problem Noted Date Diagnosed Date Resolved Date DM type 2 (diabetes mellitus, type 2) 08/06/2014 04/02/2016 Acquired renal cyst 05/18/2013 04/02/20 16 Sleep apnea 07/01/2012 03/29/2015 Acute low back pain 10/24/2010 03/29/20 15 Cyst of bone 06/02/2010 03/29/2015 SVT (supraventricular tachycardia) 01/06/2010 08/03/2016 Other and unspecified disc d isorder of cervical region 11/14/2009 08/03/2016 Cyst 05/27/2009 03/29/2015 Other benign neoplasm of con nective and other soft tissue of unspecified site 04/01/2009 04/02/20 16 TELANG///CAPILLARY DIS NEC/NOS 09/09/2008 03/29/2015 Unspecified hypertrophic and atrophic condition of skin 09/09/2008 04/02/2016 Actinic keratosis 07/02/2008 03/29/2015 Seborrheic Keratosis 07/02/2008 015 SOLAR LENGINES///DYSCHROMIA OTHER 07/02/2008 03/22/2014 Other chronic dermatitis due to solar radiation 07/02/2008 03/29/2015 Iron deficiency anemia, unspecified 10/16/2007 04/02/2016 Anemia, unspecified 10/16/2007 03/29/20 15 Hemorrhage of gastrointestin al tract, unspecified 05/08/2007 03/29/2015 Acute gastritis without mention of hemorrhage 05/08/20 07 04/02/2016 Anal fissure 05/08/2007 04/02/2016 Special screening for malign ant neoplasms, colon 05/08/2007 03/29/2015 Ingrowing nail 10/15/2006 03/29/2015 Other acquired deformity of toe 10/15/2006 03/29/2015 Sciatica 07/25/2006 08/03/2016 Anal fistula 04/02/2016 Internal hemorrhoids without mention of complication 03/29/2015 Other symptoms involving dig estive system(787.99) 03/29/2015 PMH - PAST MEDICAL HISTORY OF 04/02/2016 Overview: RIGHT KNEE ACL DEFICIENT -CHRONIC documented as of this encounter (statuses as of 03/06/2023) [facility]12-12[facility] History of Past illness Narrative* Problem Noted Date Diagnosed Date Resolved Date DM type 2 (diabetes mellitus, type 2) 08/06/2014 04/02/2016 Acquired renal cyst 05/18/2013 04/02/20 16 Sleep apnea 07/01/2012 03/29/2015 Acute low back pain 10/24/2010 03/29/20 15 Cyst of bone 06/02/2010 03/29/2015 SVT (supraventricular tachycardia) 01/06/2010 08/03/2016 Other and unspecified disc d isorder of cervical region 11/14/2009 08/03/2016 Cyst 05/27/2009 03/29/2015 Other benign neoplasm of con nective and other soft tissue of unspecified site 04/01/2009 04/02/20 16 TELANG///CAPILLARY DIS NEC/NOS 09/09/2008 03/29/2015 Unspecified hypertrophic and atrophic condition of skin 09/09/2008 04/02/2016 Actinic keratosis 07/02/2008 03/29/2015 Seborrheic Keratosis 07/02/2008 015 SOLAR LENGINES///DYSCHROMIA OTHER 07/02/2008 03/22/2014 Other chronic dermatitis due to solar radiation 07/02/2008 03/29/2015 Iron deficiency anemia, unspecified 10/16/2007 04/02/2016 Anemia, unspecified 10/16/2007 03/29/20 15 Hemorrhage of gastrointestin al tract, unspecified 05/08/2007 03/29/2015 Acute gastritis without mention of hemorrhage 05/08/20 07 04/02/2016 Anal fissure 05/08/2007 04/02/2016 Special screening for malign ant neoplasms, colon 05/08/2007 03/29/2015 Ingrowing nail 10/15/2006 03/29/2015 Other acquired deformity of toe 10/15/2006 03/29/2015 Sciatica 07/25/2006 08/03/2016 Anal fistula 04/02/2016 Internal hemorrhoids without mention of complication 03/29/2015 Other symptoms involving dig estive system(787.99) 03/29/2015 PMH - PAST MEDICAL HISTORY OF 04/02/2016 Overview: RIGHT KNEE ACL DEFICIENT -CHRONIC documented as of this encounter (statuses as of 04/23/2023) [facility]12-[facility] History of Past illness Narrative* Problem Noted Date Diagnosed Date Resolved Date DM type 2 (diabetes mellitus, type 2) 08/06/2014 04/02/2016 Acquired renal cyst 05/18/2013 04/02/20 16 Sleep apnea 07/01/2012 03/29/2015 Acute low back pain 10/24/2010 03/29/20 15 Cyst of bone 06/02/2010 03/29/2015 SVT (supraventricular tachycardia) 01/06/2010 08/03/2016 Other and unspecified disc d isorder of cervical region 11/14/2009 08/03/2016 Cyst 05/27/2009 03/29/2015 Other benign neoplasm of con nective and other soft tissue of unspecified site 04/01/2009 04/02/20 16 TELANG///CAPILLARY DIS NEC/NOS 09/09/2008 03/29/2015 Unspecified hypertrophic and atrophic condition of skin 09/09/2008 04/02/2016 Actinic keratosis 07/02/2008 03/29/2015 Seborrheic Keratosis 07/02/2008 015 SOLAR LENGINES///DYSCHROMIA OTHER 07/02/2008 03/22/2014 Other chronic dermatitis due to solar radiation 07/02/2008 03/29/2015 Iron deficiency anemia, unspecified 10/16/2007 04/02/2016 Anemia, unspecified 10/16/2007 03/29/20 15 Hemorrhage of gastrointestin al tract, unspecified 05/08/2007 03/29/2015 Acute gastritis without mention of hemorrhage 05/08/20 07 04/02/2016 Anal fissure 05/08/2007 04/02/2016 Special screening for malign ant neoplasms, colon 05/08/2007 03/29/2015 Ingrowing nail 10/15/2006 03/29/2015 Other acquired deformity of toe 10/15/2006 03/29/2015 Sciatica 07/25/2006 08/03/2016 Anal fistula 04/02/2016 Internal hemorrhoids without mention of complication 03/29/2015 Other symptoms involving dig estive system(787.99) 03/29/2015 PMH - PAST MEDICAL HISTORY OF 04/02/2016 Overview: RIGHT KNEE ACL DEFICIENT -CHRONIC documented as of this encounter (statuses as of 04/23/2023) [facility]12-12[facility] History of Past illness Narrative* Problem Noted Date Diagnosed Date Resolved Date DM type 2 (diabetes mellitus, type 2) 08/06/2014 04/02/2016 Acquired renal cyst 05/18/2013 04/02/20 16 Sleep apnea 07/01/2012 03/29/2015 Acute low back pain 10/24/2010 03/29/20 15 Cyst of bone 06/02/2010 03/29/2015 SVT (supraventricular tachycardia) 01/06/2010 08/03/2016 Other and unspecified disc d isorder of cervical region 11/14/2009 08/03/2016 Cyst 05/27/2009 03/29/2015 Other benign neoplasm of con nective and other soft tissue of unspecified site 04/01/2009 04/02/20 16 TELANG///CAPILLARY DIS NEC/NOS 09/09/2008 03/29/2015 Unspecified hypertrophic and atrophic condition of skin 09/09/2008 04/02/2016 Actinic keratosis 07/02/2008 03/29/2015 Seborrheic Keratosis 07/02/2008 015 SOLAR LENGINES///DYSCHROMIA OTHER 07/02/2008 03/22/2014 Other chronic dermatitis due to solar radiation 07/02/2008 03/29/2015 Iron deficiency anemia, unspecified 10/16/2007 04/02/2016 Anemia, unspecified 10/16/2007 03/29/20 15 Hemorrhage of gastrointestin al tract, unspecified 05/08/2007 03/29/2015 Acute gastritis without mention of hemorrhage 05/08/20 07 04/02/2016 Anal fissure 05/08/2007 04/02/2016 Special screening for malign ant neoplasms, colon 05/08/2007 03/29/2015 Ingrowing nail 10/15/2006 03/29/2015 Other acquired deformity of toe 10/15/2006 03/29/2015 Sciatica 07/25/2006 08/03/2016 Anal fistula 04/02/2016 Internal hemorrhoids without mention of complication 03/29/2015 Other symptoms involving dig estive system(787.99) 03/29/2015 PMH - PAST MEDICAL HISTORY OF 04/02/2016 Overview: RIGHT KNEE ACL DEFICIENT -CHRONIC documented as of this encounter (statuses as of 05/04/2023) [facility]12[facility] History of Past illness Narrative* Problem Noted Date Diagnosed Date Resolved Date DM type 2 (diabetes mellitus, type 2) 08/06/2014 04/02/2016 Acquired renal cyst 05/18/2013 04/02/20 16 Sleep apnea 07/01/2012 03/29/2015 Acute low back pain 10/24/2010 03/29/20 15 Cyst of bone 06/02/2010 03/29/2015 SVT (supraventricular tachycardia) 01/06/2010 08/03/2016 Other and unspecified disc d isorder of cervical region 11/14/2009 08/03/2016 Cyst 05/27/2009 03/29/2015 Other benign neoplasm of con nective and other soft tissue of unspecified site 04/01/2009 04/02/20 16 TELANG///CAPILLARY DIS NEC/NOS 09/09/2008 03/29/2015 Unspecified hypertrophic and atrophic condition of skin 09/09/2008 04/02/2016 Actinic keratosis 07/02/2008 03/29/2015 Seborrheic Keratosis 07/02/2008 015 SOLAR LENGINES///DYSCHROMIA OTHER 07/02/2008 03/22/2014 Other chronic dermatitis due to solar radiation 07/02/2008 03/29/2015 Iron deficiency anemia, unspecified 10/16/2007 04/02/2016 Anemia, unspecified 10/16/2007 03/29/20 15 Hemorrhage of gastrointestin al tract, unspecified 05/08/2007 03/29/2015 Acute gastritis without mention of hemorrhage 05/08/20 07 04/02/2016 Anal fissure 05/08/2007 04/02/2016 Special screening for malign ant neoplasms, colon 05/08/2007 03/29/2015 Ingrowing nail 10/15/2006 03/29/2015 Other acquired deformity of toe 10/15/2006 03/29/2015 Sciatica 07/25/2006 08/03/2016 Anal fistula 04/02/2016 Internal hemorrhoids without mention of complication 03/29/2015 Other symptoms involving dig estive system(787.99) 03/29/2015 PMH - PAST MEDICAL HISTORY OF 04/02/2016 Overview: RIGHT KNEE ACL DEFICIENT -CHRONIC documented as of this encounter (statuses as of 05/07/2023) [facility]12[facility] History of Past illness Narrative* Problem Noted Date Diagnosed Date Resolved Date DM type 2 (diabetes mellitus, type 2) 08/06/2014 04/02/2016 Acquired renal cyst 05/18/2013 04/02/20 16 Sleep apnea 07/01/2012 03/29/2015 Acute low back pain 10/24/2010 03/29/20 15 Cyst of bone 06/02/2010 03/29/2015 SVT (supraventricular tachycardia) 01/06/2010 08/03/2016 Other and unspecified disc d isorder of cervical region 11/14/2009 08/03/2016 Cyst 05/27/2009 03/29/2015 Other benign neoplasm of con nective and other soft tissue of unspecified site 04/01/2009 04/02/20 16 TELANG///CAPILLARY DIS NEC/NOS 09/09/2008 03/29/2015 Unspecified hypertrophic and atrophic condition of skin 09/09/2008 04/02/2016 Actinic keratosis 07/02/2008 03/29/2015 Seborrheic Keratosis 07/02/2008 015 SOLAR LENGINES///DYSCHROMIA OTHER 07/02/2008 03/22/2014 Other chronic dermatitis due to solar radiation 07/02/2008 03/29/2015 Iron deficiency anemia, unspecified 10/16/2007 04/02/2016 Anemia, unspecified 10/16/2007 03/29/20 15 Hemorrhage of gastrointestin al tract, unspecified 05/08/2007 03/29/2015 Acute gastritis without mention of hemorrhage 05/08/20 07 04/02/2016 Anal fissure 05/08/2007 04/02/2016 Special screening for malign ant neoplasms, colon 05/08/2007 03/29/2015 Ingrowing nail 10/15/2006 03/29/2015 Other acquired deformity of toe 10/15/2006 03/29/2015 Sciatica 07/25/2006 08/03/2016 Anal fistula 04/02/2016 Internal hemorrhoids without mention of complication 03/29/2015 Other symptoms involving dig estive system(787.99) 03/29/2015 PMH - PAST MEDICAL HISTORY OF 04/02/2016 Overview: RIGHT KNEE ACL DEFICIENT -CHRONIC documented as of this encounter (statuses as of 05/08/2023) [facility] History of Past illness Narrative* Problem Noted Date Diagnosed Date Resolved Date DM type 2 (diabetes mellitus, type 2) 08/06/2014 04/02/2016 Acquired renal cyst 05/18/2013 04/02/20 16 Sleep apnea 07/01/2012 03/29/2015 Acute low back pain 10/24/2010 03/29/20 15 Cyst of bone 06/02/2010 03/29/2015 SVT (supraventricular tachycardia) 01/06/2010 08/03/2016 Other and unspecified disc d isorder of cervical region 11/14/2009 08/03/2016 Cyst 05/27/2009 03/29/2015 Other benign neoplasm of con nective and other soft tissue of unspecified site 04/01/2009 04/02/20 16 TELANG///CAPILLARY DIS NEC/NOS 09/09/2008 03/29/2015 Unspecified hypertrophic and atrophic condition of skin 09/09/2008 04/02/2016 Actinic keratosis 07/02/2008 03/29/2015 Seborrheic Keratosis 07/02/2008 015 SOLAR LENGINES///DYSCHROMIA OTHER 07/02/2008 03/22/2014 Other chronic dermatitis due to solar radiation 07/02/2008 03/29/2015 Iron deficiency anemia, unspecified 10/16/2007 04/02/2016 Anemia, unspecified 10/16/2007 03/29/20 15 Hemorrhage of gastrointestin al tract, unspecified 05/08/2007 03/29/2015 Acute gastritis without mention of hemorrhage 05/08/20 07 04/02/2016 Anal fissure 05/08/2007 04/02/2016 Special screening for malign ant neoplasms, colon 05/08/2007 03/29/2015 Ingrowing nail 10/15/2006 03/29/2015 Other acquired deformity of toe 10/15/2006 03/29/2015 Sciatica 07/25/2006 08/03/2016 Anal fistula 04/02/2016 Internal hemorrhoids without mention of complication 03/29/2015 Other symptoms involving dig estive system(787.99) 03/29/2015 PMH - PAST MEDICAL HISTORY OF 04/02/2016 Overview: RIGHT KNEE ACL DEFICIENT -CHRONIC documented as of this encounter (statuses as of 05/08/2023) [facility] History of Past illness Narrative* Problem Noted Date Diagnosed Date Resolved Date DM type 2 (diabetes mellitus, type 2) 08/06/2014 04/02/2016 Acquired renal cyst 05/18/2013 04/02/20 16 Sleep apnea 07/01/2012 03/29/2015 Acute low back pain 10/24/2010 03/29/20 15 Cyst of bone 06/02/2010 03/29/2015 SVT (supraventricular tachycardia) 01/06/2010 08/03/2016 Other and unspecified disc d isorder of cervical region 11/14/2009 08/03/2016 Cyst 05/27/2009 03/29/2015 Other benign neoplasm of con nective and other soft tissue of unspecified site 04/01/2009 04/02/20 16 TELANG///CAPILLARY DIS NEC/NOS 09/09/2008 03/29/2015 Unspecified hypertrophic and atrophic condition of skin 09/09/2008 04/02/2016 Actinic keratosis 07/02/2008 03/29/2015 Seborrheic Keratosis 07/02/2008 015 SOLAR LENGINES///DYSCHROMIA OTHER 07/02/2008 03/22/2014 Other chronic dermatitis due to solar radiation 07/02/2008 03/29/2015 Iron deficiency anemia, unspecified 10/16/2007 04/02/2016 Anemia, unspecified 10/16/2007 03/29/20 15 Hemorrhage of gastrointestin al tract, unspecified 05/08/2007 03/29/2015 Acute gastritis without mention of hemorrhage 05/08/20 07 04/02/2016 Anal fissure 05/08/2007 04/02/2016 Special screening for malign ant neoplasms, colon 05/08/2007 03/29/2015 Ingrowing nail 10/15/2006 03/29/2015 Other acquired deformity of toe 10/15/2006 03/29/2015 Sciatica 07/25/2006 08/03/2016 Anal fistula 04/02/2016 Internal hemorrhoids without mention of complication 03/29/2015 Other symptoms involving dig estive system(787.99) 03/29/2015 PMH - PAST MEDICAL HISTORY OF 04/02/2016 Overview: RIGHT KNEE ACL DEFICIENT -CHRONIC documented as of this encounter (statuses as of 05/21/2023) [facility] History of Past illness Narrative* Problem Noted Date Diagnosed Date Resolved Date DM type 2 (diabetes mellitus, type 2) 08/06/2014 04/02/2016 Acquired renal cyst 05/18/2013 04/02/20 16 Sleep apnea 07/01/2012 03/29/2015 Acute low back pain 10/24/2010 03/29/20 15 Cyst of bone 06/02/2010 03/29/2015 SVT (supraventricular tachycardia) 01/06/2010 08/03/2016 Other and unspecified disc d isorder of cervical region 11/14/2009 08/03/2016 Cyst 05/27/2009 03/29/2015 Other benign neoplasm of con nective and other soft tissue of unspecified site 04/01/2009 04/02/20 16 TELANG///CAPILLARY DIS NEC/NOS 09/09/2008 03/29/2015 Unspecified hypertrophic and atrophic condition of skin 09/09/2008 04/02/2016 Actinic keratosis 07/02/2008 03/29/2015 Seborrheic Keratosis 07/02/2008 015 SOLAR LENGINES///DYSCHROMIA OTHER 07/02/2008 03/22/2014 Other chronic dermatitis due to solar radiation 07/02/2008 03/29/2015 Iron deficiency anemia, unspecified 10/16/2007 04/02/2016 Anemia, unspecified 10/16/2007 03/29/20 15 Hemorrhage of gastrointestin al tract, unspecified 05/08/2007 03/29/2015 Acute gastritis without mention of hemorrhage 05/08/20 07 04/02/2016 Anal fissure 05/08/2007 04/02/2016 Special screening for malign ant neoplasms, colon 05/08/2007 03/29/2015 Ingrowing nail 10/15/2006 03/29/2015 Other acquired deformity of toe 10/15/2006 03/29/2015 Sciatica 07/25/2006 08/03/2016 Anal fistula 04/02/2016 Internal hemorrhoids without mention of complication 03/29/2015 Other symptoms involving dig estive system(787.99) 03/29/2015 PMH - PAST MEDICAL HISTORY OF 04/02/2016 Overview: RIGHT KNEE ACL DEFICIENT -CHRONIC documented as of this encounter (statuses as of 05/31/2023) [facility]12-12-2014 History of Past illness Narrative* Problem Noted Date Diagnosed Date Resolved Date DM type 2 (diabetes mellitus, type 2) 08/06/2014 04/02/2016 Acquired renal cyst 05/18/2013 04/02/20 16 Sleep apnea 07/01/2012 03/29/2015 Acute low back pain 10/24/2010 03/29/20 15 Cyst of bone 06/02/2010 03/29/2015 SVT (supraventricular tachycardia) 01/06/2010 08/03/2016 Other and unspecified disc d isorder of cervical region 11/14/2009 08/03/2016 Cyst 05/27/2009 03/29/2015 Other benign neoplasm of con nective and other soft tissue of unspecified site 04/01/2009 04/02/20 16 TELANG///CAPILLARY DIS NEC/NOS 09/09/2008 03/29/2015 Unspecified hypertrophic and atrophic condition of skin 09/09/2008 04/02/2016 Actinic keratosis 07/02/2008 03/29/2015 Seborrheic Keratosis 07/02/2008 015 SOLAR LENGINES///DYSCHROMIA OTHER 07/02/2008 03/22/2014 Other chronic dermatitis due to solar radiation 07/02/2008 03/29/2015 Iron deficiency anemia, unspecified 10/16/2007 04/02/2016 Anemia, unspecified 10/16/2007 03/29/20 15 Hemorrhage of gastrointestin al tract, unspecified 05/08/2007 03/29/2015 Acute gastritis without mention of hemorrhage 05/08/2004/02/2016 Anal fissure 05/08/2007 04/02/2016 Special screening for malign ant neoplasms, colon 05/08/2007 03/29/2015 Ingrowing nail 10/15/2006 03/29/2015 Other acquired deformity of toe 10/15/2006 03/29/2015 Sciatica 07/25/2006 08/03/2016 Anal fistula 04/02/2016 Internal hemorrhoids without mention of complication 03/29/2015 Other symptoms involving dig estive system(787.99) 03/29/2015 PMH - PAST MEDICAL HISTORY OF 04/02/2016 Overview: RIGHT KNEE ACL DEFICIENT -CHRONIC documented as of this encounter (statuses as of 05/31/2023) [facility]12-12-[facility] History of Past illness Narrative* Problem Noted Date Diagnosed Date Resolved Date DM type 2 (diabetes mellitus, type 2) 08/06/2014 04/02/2016 Acquired renal cyst 05/18/2013 04/02/20 16 Sleep apnea 07/01/2012 03/29/2015 Acute low back pain 10/24/2010 03/29/20 15 Cyst of bone 06/02/2010 03/29/2015 SVT (supraventricular tachycardia) 01/06/2010 08/03/2016 Other and unspecified disc d isorder of cervical region 11/14/2009 08/03/2016 Cyst 05/27/2009 03/29/2015 Other benign neoplasm of con nective and other soft tissue of unspecified site 04/01/2009 04/02/20 16 TELANG///CAPILLARY DIS NEC/NOS 09/09/2008 03/29/2015 Unspecified hypertrophic and atrophic condition of skin 09/09/2008 04/02/2016 Actinic keratosis 07/02/2008 03/29/2015 Seborrheic Keratosis 07/02/2008 015 SOLAR LENGINES///DYSCHROMIA OTHER 07/02/2008 03/22/2014 Other chronic dermatitis due to solar radiation 07/02/2008 03/29/2015 Iron deficiency anemia, unspecified 10/16/2007 04/02/2016 Anemia, unspecified 10/16/2007 03/29/20 15 Hemorrhage of gastrointestin al tract, unspecified 05/08/2007 03/29/2015 Acute gastritis without mention of hemorrhage 05/08/20 07 04/02/2016 Anal fissure 05/08/2007 04/02/2016 Special screening for malign ant neoplasms, colon 05/08/2007 03/29/2015 Ingrowing nail 10/15/2006 03/29/2015 Other acquired deformity of toe 10/15/2006 03/29/2015 Sciatica 07/25/2006 08/03/2016 Anal fistula 04/02/2016 Internal hemorrhoids without mention of complication 03/29/2015 Other symptoms involving dig estive system(787.99) 03/29/2015 PMH - PAST MEDICAL HISTORY OF 04/02/2016 Overview: RIGHT KNEE ACL DEFICIENT -CHRONIC documented as of this encounter (statuses as of 06/01/2023) [facility]12-12[facility] History of Past illness Narrative* Problem Noted Date Diagnosed Date Resolved Date DM type 2 (diabetes mellitus, type 2) 08/06/2014 04/02/2016 Acquired renal cyst 05/18/2013 04/02/20 16 Sleep apnea 07/01/2012 03/29/2015 Acute low back pain 10/24/2010 03/29/20 15 Cyst of bone 06/02/2010 03/29/2015 SVT (supraventricular tachycardia) 01/06/2010 08/03/2016 Other and unspecified disc d isorder of cervical region 11/14/2009 08/03/2016 Cyst 05/27/2009 03/29/2015 Other benign neoplasm of con nective and other soft tissue of unspecified site 04/01/2009 04/02/20 16 TELANG///CAPILLARY DIS NEC/NOS 09/09/2008 03/29/2015 Unspecified hypertrophic and atrophic condition of skin 09/09/2008 04/02/2016 Actinic keratosis 07/02/2008 03/29/2015 Seborrheic Keratosis 07/02/2008 015 SOLAR LENGINES///DYSCHROMIA OTHER 07/02/2008 03/22/2014 Other chronic dermatitis due to solar radiation 07/02/2008 03/29/2015 Iron deficiency anemia, unspecified 10/16/2007 04/02/2016 Anemia, unspecified 10/16/2007 03/29/20 15 Hemorrhage of gastrointestin al tract, unspecified 05/08/2007 03/29/2015 Acute gastritis without mention of hemorrhage 05/08/20 07 04/02/2016 Anal fissure 05/08/2007 04/02/2016 Special screening for malign ant neoplasms, colon 05/08/2007 03/29/2015 Ingrowing nail 10/15/2006 03/29/2015 Other acquired deformity of toe 10/15/2006 03/29/2015 Sciatica 07/25/2006 08/03/2016 Anal fistula 04/02/2016 Internal hemorrhoids without mention of complication 03/29/2015 Other symptoms involving dig estive system(787.99) 03/29/2015 PMH - PAST MEDICAL HISTORY OF 04/02/2016 Overview: RIGHT KNEE ACL DEFICIENT -CHRONIC documented as of this encounter (statuses as of 06/10/2023) [facility]12-12[facility] History of Past illness Narrative* Problem Noted Date Diagnosed Date Resolved Date DM type 2 (diabetes mellitus, type 2) 08/06/2014 04/02/2016 Acquired renal cyst 05/18/2013 04/02/20 16 Sleep apnea 07/01/2012 03/29/2015 Acute low back pain 10/24/2010 03/29/20 15 Cyst of bone 06/02/2010 03/29/2015 SVT (supraventricular tachycardia) 01/06/2010 08/03/2016 Other and unspecified disc d isorder of cervical region 11/14/2009 08/03/2016 Cyst 05/27/2009 03/29/2015 Other benign neoplasm of con nective and other soft tissue of unspecified site 04/01/2009 04/02/20 16 TELANG///CAPILLARY DIS NEC/NOS 09/09/2008 03/29/2015 Unspecified hypertrophic and atrophic condition of skin 09/09/2008 04/02/2016 Actinic keratosis 07/02/2008 03/29/2015 Seborrheic Keratosis 07/02/2008 015 SOLAR LENGINES///DYSCHROMIA OTHER 07/02/2008 03/22/2014 Other chronic dermatitis due to solar radiation 07/02/2008 03/29/2015 Iron deficiency anemia, unspecified 10/16/2007 04/02/2016 Anemia, unspecified 10/16/2007 03/29/20 15 Hemorrhage of gastrointestin al tract, unspecified 05/08/2007 03/29/2015 Acute gastritis without mention of hemorrhage 05/08/20 07 04/02/2016 Anal fissure 05/08/2007 04/02/2016 Special screening for malign ant neoplasms, colon 05/08/2007 03/29/2015 Ingrowing nail 10/15/2006 03/29/2015 Other acquired deformity of toe 10/15/2006 03/29/2015 Sciatica 07/25/2006 08/03/2016 Anal fistula 04/02/2016 Internal hemorrhoids without mention of complication 03/29/2015 Other symptoms involving dig estive system(787.99) 03/29/2015 PMH - PAST MEDICAL HISTORY OF 04/02/2016 Overview: RIGHT KNEE ACL DEFICIENT -CHRONIC documented as of this encounter (statuses as of 06/17/2023) [facility]12-12-[facility] History of Past illness Narrative* Problem Noted Date Diagnosed Date Resolved Date DM type 2 (diabetes mellitus, type 2) 08/06/2014 04/02/2016 Acquired renal cyst 05/18/2013 04/02/20 16 Sleep apnea 07/01/2012 03/29/2015 Acute low back pain 10/24/2010 03/29/20 15 Cyst of bone 06/02/2010 03/29/2015 SVT (supraventricular tachycardia) 01/06/2010 08/03/2016 Other and unspecified disc d isorder of cervical region 11/14/2009 08/03/2016 Cyst 05/27/2009 03/29/2015 Other benign neoplasm of con nective and other soft tissue of unspecified site 04/01/2009 04/02/20 16 TELANG///CAPILLARY DIS NEC/NOS 09/09/2008 03/29/2015 Unspecified hypertrophic and atrophic condition of skin 09/09/2008 04/02/2016 Actinic keratosis 07/02/2008 03/29/2015 Seborrheic Keratosis 07/02/2008 015 SOLAR LENGINES///DYSCHROMIA OTHER 07/02/2008 03/22/2014 Other chronic dermatitis due to solar radiation 07/02/2008 03/29/2015 Iron deficiency anemia, unspecified 10/16/2007 04/02/2016 Anemia, unspecified 10/16/2007 03/29/20 15 Hemorrhage of gastrointestin al tract, unspecified 05/08/2007 03/29/2015 Acute gastritis without mention of hemorrhage 05/08/20 07 04/02/2016 Anal fissure 05/08/2007 04/02/2016 Special screening for malign ant neoplasms, colon 05/08/2007 03/29/2015 Ingrowing nail 10/15/2006 03/29/2015 Other acquired deformity of toe 10/15/2006 03/29/2015 Sciatica 07/25/2006 08/03/2016 Anal fistula 04/02/2016 Internal hemorrhoids without mention of complication 03/29/2015 Other symptoms involving dig estive system(787.99) 03/29/2015 PMH - PAST MEDICAL HISTORY OF 04/02/2016 Overview: RIGHT KNEE ACL DEFICIENT -CHRONIC documented as of this encounter (statuses as of 06/18/2023) [facility]12-12-[facility] History of Past illness Narrative* Problem Noted Date Diagnosed Date Resolved Date DM type 2 (diabetes mellitus, type 2) 08/06/2014 04/02/2016 Acquired renal cyst 05/18/2013 04/02/20 16 Sleep apnea 07/01/2012 03/29/2015 Acute low back pain 10/24/2010 03/29/20 15 Cyst of bone 06/02/2010 03/29/2015 SVT (supraventricular tachycardia) 01/06/2010 08/03/2016 Other and unspecified disc d isorder of cervical region 11/14/2009 08/03/2016 Cyst 05/27/2009 03/29/2015 Other benign neoplasm of con nective and other soft tissue of unspecified site 04/01/2009 04/02/20 16 TELANG///CAPILLARY DIS NEC/NOS 09/09/2008 03/29/2015 Unspecified hypertrophic and atrophic condition of skin 09/09/2008 04/02/2016 Actinic keratosis 07/02/2008 03/29/2015 Seborrheic Keratosis 07/02/2008 015 SOLAR LENGINES///DYSCHROMIA OTHER 07/02/2008 03/22/2014 Other chronic dermatitis due to solar radiation 07/02/2008 03/29/2015 Iron deficiency anemia, unspecified 10/16/2007 04/02/2016 Anemia, unspecified 10/16/2007 03/29/20 15 Hemorrhage of gastrointestin al tract, unspecified 05/08/2007 03/29/2015 Acute gastritis without mention of hemorrhage 05/08/20 07 04/02/2016 Anal fissure 05/08/2007 04/02/2016 Special screening for malign ant neoplasms, colon 05/08/2007 03/29/2015 Ingrowing nail 10/15/2006 03/29/2015 Other acquired deformity of toe 10/15/2006 03/29/2015 Sciatica 07/25/2006 08/03/2016 Anal fistula 04/02/2016 Internal hemorrhoids without mention of complication 03/29/2015 Other symptoms involving dig estive system(787.99) 03/29/2015 PMH - PAST MEDICAL HISTORY OF 04/02/2016 Overview: RIGHT KNEE ACL DEFICIENT -CHRONIC documented as of this encounter (statuses as of 06/21/2023) [facility]12-12[facility] History of Past illness Narrative* Problem Noted Date Diagnosed Date Resolved Date DM type 2 (diabetes mellitus, type 2) 08/06/2014 04/02/2016 Acquired renal cyst 05/18/2013 04/02/20 16 Sleep apnea 07/01/2012 03/29/2015 Acute low back pain 10/24/2010 03/29/20 15 Cyst of bone 06/02/2010 03/29/2015 SVT (supraventricular tachycardia) 01/06/2010 08/03/2016 Other and unspecified disc d isorder of cervical region 11/14/2009 08/03/2016 Cyst 05/27/2009 03/29/2015 Other benign neoplasm of con nective and other soft tissue of unspecified site 04/01/2009 04/02/20 16 TELANG///CAPILLARY DIS NEC/NOS 09/09/2008 03/29/2015 Unspecified hypertrophic and atrophic condition of skin 09/09/2008 04/02/2016 Actinic keratosis 07/02/2008 03/29/2015 Seborrheic Keratosis 07/02/2008 015 SOLAR LENGINES///DYSCHROMIA OTHER 07/02/2008 03/22/2014 Other chronic dermatitis due to solar radiation 07/02/2008 03/29/2015 Iron deficiency anemia, unspecified 10/16/2007 04/02/2016 Anemia, unspecified 10/16/2007 03/29/20 15 Hemorrhage of gastrointestin al tract, unspecified 05/08/2007 03/29/2015 Acute gastritis without mention of hemorrhage 05/08/20 07 04/02/2016 Anal fissure 05/08/2007 04/02/2016 Special screening for malign ant neoplasms, colon 05/08/2007 03/29/2015 Ingrowing nail 10/15/2006 03/29/2015 Other acquired deformity of toe 10/15/2006 03/29/2015 Sciatica 07/25/2006 08/03/2016 Anal fistula 04/02/2016 Internal hemorrhoids without mention of complication 03/29/2015 Other symptoms involving dig estive system(787.99) 03/29/2015 PMH - PAST MEDICAL HISTORY OF 04/02/2016 Overview: RIGHT KNEE ACL DEFICIENT -CHRONIC documented as of this encounter (statuses as of 06/21/2023) [facility]12-[facility] History of Past illness Narrative* Problem Noted Date Diagnosed Date Resolved Date DM type 2 (diabetes mellitus, type 2) 08/06/2014 04/02/2016 Acquired renal cyst 05/18/2013 04/02/20 16 Sleep apnea 07/01/2012 03/29/2015 Acute low back pain 10/24/2010 03/29/20 15 Cyst of bone 06/02/2010 03/29/2015 SVT (supraventricular tachycardia) 01/06/2010 08/03/2016 Other and unspecified disc d isorder of cervical region 11/14/2009 08/03/2016 Cyst 05/27/2009 03/29/2015 Other benign neoplasm of con nective and other soft tissue of unspecified site 04/01/2009 04/02/20 16 TELANG///CAPILLARY DIS NEC/NOS 09/09/2008 03/29/2015 Unspecified hypertrophic and atrophic condition of skin 09/09/2008 04/02/2016 Actinic keratosis 07/02/2008 03/29/2015 Seborrheic Keratosis 07/02/2008 015 SOLAR LENGINES///DYSCHROMIA OTHER 07/02/2008 03/22/2014 Other chronic dermatitis due to solar radiation 07/02/2008 03/29/2015 Iron deficiency anemia, unspecified 10/16/2007 04/02/2016 Anemia, unspecified 10/16/2007 03/29/20 15 Hemorrhage of gastrointestin al tract, unspecified 05/08/2007 03/29/2015 Acute gastritis without mention of hemorrhage 05/08/20 07 04/02/2016 Anal fissure 05/08/2007 04/02/2016 Special screening for malign ant neoplasms, colon 05/08/2007 03/29/2015 Ingrowing nail 10/15/2006 03/29/2015 Other acquired deformity of toe 10/15/2006 03/29/2015 Sciatica 07/25/2006 08/03/2016 Anal fistula 04/02/2016 Internal hemorrhoids without mention of complication 03/29/2015 Other symptoms involving dig estive system(787.99) 03/29/2015 PMH - PAST MEDICAL HISTORY OF 04/02/2016 Overview: RIGHT KNEE ACL DEFICIENT -CHRONIC documented as of this encounter (statuses as of 06/21/2023) [facility]12[facility] History of Past illness Narrative* Problem Noted Date Diagnosed Date Resolved Date DM type 2 (diabetes mellitus, type 2) 08/06/2014 04/02/2016 Acquired renal cyst 05/18/2013 04/02/20 16 Sleep apnea 07/01/2012 03/29/2015 Acute low back pain 10/24/2010 03/29/20 15 Cyst of bone 06/02/2010 03/29/2015 SVT (supraventricular tachycardia) 01/06/2010 08/03/2016 Other and unspecified disc d isorder of cervical region 11/14/2009 08/03/2016 Cyst 05/27/2009 03/29/2015 Other benign neoplasm of con nective and other soft tissue of unspecified site 04/01/2009 04/02/20 16 TELANG///CAPILLARY DIS NEC/NOS 09/09/2008 03/29/2015 Unspecified hypertrophic and atrophic condition of skin 09/09/2008 04/02/2016 Actinic keratosis 07/02/2008 03/29/2015 Seborrheic Keratosis 07/02/2008 015 SOLAR LENGINES///DYSCHROMIA OTHER 07/02/2008 03/22/2014 Other chronic dermatitis due to solar radiation 07/02/2008 03/29/2015 Iron deficiency anemia, unspecified 10/16/2007 04/02/2016 Anemia, unspecified 10/16/2007 03/29/20 15 Hemorrhage of gastrointestin al tract, unspecified 05/08/2007 03/29/2015 Acute gastritis without mention of hemorrhage 05/08/20 07 04/02/2016 Anal fissure 05/08/2007 04/02/2016 Special screening for malign ant neoplasms, colon 05/08/2007 03/29/2015 Ingrowing nail 10/15/2006 03/29/2015 Other acquired deformity of toe 10/15/2006 03/29/2015 Sciatica 07/25/2006 08/03/2016 Anal fistula 04/02/2016 Internal hemorrhoids without mention of complication 03/29/2015 Other symptoms involving dig estive system(787.99) 03/29/2015 PMH - PAST MEDICAL HISTORY OF 04/02/2016 Overview: RIGHT KNEE ACL DEFICIENT -CHRONIC documented as of this encounter (statuses as of 06/25/2023) [facility]12[facility] History of Past illness Narrative* Problem Noted Date Diagnosed Date Resolved Date DM type 2 (diabetes mellitus, type 2) 08/06/2014 04/02/2016 Acquired renal cyst 05/18/2013 04/02/20 16 Sleep apnea 07/01/2012 03/29/2015 Acute low back pain 10/24/2010 03/29/20 15 Cyst of bone 06/02/2010 03/29/2015 SVT (supraventricular tachycardia) 01/06/2010 08/03/2016 Other and unspecified disc d isorder of cervical region 11/14/2009 08/03/2016 Cyst 05/27/2009 03/29/2015 Other benign neoplasm of con nective and other soft tissue of unspecified site 04/01/2009 04/02/20 16 TELANG///CAPILLARY DIS NEC/NOS 09/09/2008 03/29/2015 Unspecified hypertrophic and atrophic condition of skin 09/09/2008 04/02/2016 Actinic keratosis 07/02/2008 03/29/2015 Seborrheic Keratosis 07/02/2008 015 SOLAR LENGINES///DYSCHROMIA OTHER 07/02/2008 03/22/2014 Other chronic dermatitis due to solar radiation 07/02/2008 03/29/2015 Iron deficiency anemia, unspecified 10/16/2007 04/02/2016 Anemia, unspecified 10/16/2007 03/29/20 15 Hemorrhage of gastrointestin al tract, unspecified 05/08/2007 03/29/2015 Acute gastritis without mention of hemorrhage 05/08/20 07 04/02/2016 Anal fissure 05/08/2007 04/02/2016 Special screening for malign ant neoplasms, colon 05/08/2007 03/29/2015 Ingrowing nail 10/15/2006 03/29/2015 Other acquired deformity of toe 10/15/2006 03/29/2015 Sciatica 07/25/2006 08/03/2016 Anal fistula 04/02/2016 Internal hemorrhoids without mention of complication 03/29/2015 Other symptoms involving dig estive system(787.99) 03/29/2015 PMH - PAST MEDICAL HISTORY OF 04/02/2016 Overview: RIGHT KNEE ACL DEFICIENT -CHRONIC documented as of this encounter (statuses as of 06/26/2023) [facility] History of Past illness Narrative* Problem Noted Date Diagnosed Date Resolved Date DM type 2 (diabetes mellitus, type 2) 08/06/2014 04/02/2016 Acquired renal cyst 05/18/2013 04/02/20 16 Sleep apnea 07/01/2012 03/29/2015 Acute low back pain 10/24/2010 03/29/20 15 Cyst of bone 06/02/2010 03/29/2015 SVT (supraventricular tachycardia) 01/06/2010 08/03/2016 Other and unspecified disc d isorder of cervical region 11/14/2009 08/03/2016 Cyst 05/27/2009 03/29/2015 Other benign neoplasm of con nective and other soft tissue of unspecified site 04/01/2009 04/02/20 16 TELANG///CAPILLARY DIS NEC/NOS 09/09/2008 03/29/2015 Unspecified hypertrophic and atrophic condition of skin 09/09/2008 04/02/2016 Actinic keratosis 07/02/2008 03/29/2015 Seborrheic Keratosis 07/02/2008 015 SOLAR LENGINES///DYSCHROMIA OTHER 07/02/2008 03/22/2014 Other chronic dermatitis due to solar radiation 07/02/2008 03/29/2015 Iron deficiency anemia, unspecified 10/16/2007 04/02/2016 Anemia, unspecified 10/16/2007 03/29/20 15 Hemorrhage of gastrointestin al tract, unspecified 05/08/2007 03/29/2015 Acute gastritis without mention of hemorrhage 05/08/20 07 04/02/2016 Anal fissure 05/08/2007 04/02/2016 Special screening for malign ant neoplasms, colon 05/08/2007 03/29/2015 Ingrowing nail 10/15/2006 03/29/2015 Other acquired deformity of toe 10/15/2006 03/29/2015 Sciatica 07/25/2006 08/03/2016 Anal fistula 04/02/2016 Internal hemorrhoids without mention of complication 03/29/2015 Other symptoms involving dig estive system(787.99) 03/29/2015 PMH - PAST MEDICAL HISTORY OF 04/02/2016 Overview: RIGHT KNEE ACL DEFICIENT -CHRONIC documented as of this encounter (statuses as of 06/26/2023) [facility] History of Past illness Narrative* Problem Noted Date Diagnosed Date Resolved Date DM type 2 (diabetes mellitus, type 2) 08/06/2014 04/02/2016 Acquired renal cyst 05/18/2013 04/02/20 16 Sleep apnea 07/01/2012 03/29/2015 Acute low back pain 10/24/2010 03/29/20 15 Cyst of bone 06/02/2010 03/29/2015 SVT (supraventricular tachycardia) 01/06/2010 08/03/2016 Other and unspecified disc d isorder of cervical region 11/14/2009 08/03/2016 Cyst 05/27/2009 03/29/2015 Other benign neoplasm of con nective and other soft tissue of unspecified site 04/01/2009 04/02/20 16 TELANG///CAPILLARY DIS NEC/NOS 09/09/2008 03/29/2015 Unspecified hypertrophic and atrophic condition of skin 09/09/2008 04/02/2016 Actinic keratosis 07/02/2008 03/29/2015 Seborrheic Keratosis 07/02/2008 015 SOLAR LENGINES///DYSCHROMIA OTHER 07/02/2008 03/22/2014 Other chronic dermatitis due to solar radiation 07/02/2008 03/29/2015 Iron deficiency anemia, unspecified 10/16/2007 04/02/2016 Anemia, unspecified 10/16/2007 03/29/20 15 Hemorrhage of gastrointestin al tract, unspecified 05/08/2007 03/29/2015 Acute gastritis without mention of hemorrhage 05/08/20 07 04/02/2016 Anal fissure 05/08/2007 04/02/2016 Special screening for malign ant neoplasms, colon 05/08/2007 03/29/2015 Ingrowing nail 10/15/2006 03/29/2015 Other acquired deformity of toe 10/15/2006 03/29/2015 Sciatica 07/25/2006 08/03/2016 Anal fistula 04/02/2016 Internal hemorrhoids without mention of complication 03/29/2015 Other symptoms involving dig estive system(787.99) 03/29/2015 PMH - PAST MEDICAL HISTORY OF 04/02/2016 Overview: RIGHT KNEE ACL DEFICIENT -CHRONIC documented as of this encounter (statuses as of 06/30/2023) [facility] History of Past illness Narrative* Problem Noted Date Diagnosed Date Resolved Date DM type 2 (diabetes mellitus, type 2) 08/06/2014 04/02/2016 Acquired renal cyst 05/18/2013 04/02/20 16 Sleep apnea 07/01/2012 03/29/2015 Acute low back pain 10/24/2010 03/29/20 15 Cyst of bone 06/02/2010 03/29/2015 SVT (supraventricular tachycardia) 01/06/2010 08/03/2016 Other and unspecified disc d isorder of cervical region 11/14/2009 08/03/2016 Cyst 05/27/2009 03/29/2015 Other benign neoplasm of con nective and other soft tissue of unspecified site 04/01/2009 04/02/20 16 TELANG///CAPILLARY DIS NEC/NOS 09/09/2008 03/29/2015 Unspecified hypertrophic and atrophic condition of skin 09/09/2008 04/02/2016 Actinic keratosis 07/02/2008 03/29/2015 Seborrheic Keratosis 07/02/2008 015 SOLAR LENGINES///DYSCHROMIA OTHER 07/02/2008 03/22/2014 Other chronic dermatitis due to solar radiation 07/02/2008 03/29/2015 Iron deficiency anemia, unspecified 10/16/2007 04/02/2016 Anemia, unspecified 10/16/2007 03/29/20 15 Hemorrhage of gastrointestin al tract, unspecified 05/08/2007 03/29/2015 Acute gastritis without mention of hemorrhage 05/08/20 07 04/02/2016 Anal fissure 05/08/2007 04/02/2016 Special screening for malign ant neoplasms, colon 05/08/2007 03/29/2015 Ingrowing nail 10/15/2006 03/29/2015 Other acquired deformity of toe 10/15/2006 03/29/2015 Sciatica 07/25/2006 08/03/2016 Anal fistula 04/02/2016 Internal hemorrhoids without mention of complication 03/29/2015 Other symptoms involving dig estive system(787.99) 03/29/2015 PMH - PAST MEDICAL HISTORY OF 04/02/2016 Overview: RIGHT KNEE ACL DEFICIENT -CHRONIC documented as of this encounter (statuses as of 06/30/2023) [facility] History of Past illness Narrative* Problem Noted Date Diagnosed Date Resolved Date DM type 2 (diabetes mellitus, type 2) 08/06/2014 04/02/2016 Acquired renal cyst 05/18/2013 04/02/20 16 Sleep apnea 07/01/2012 03/29/2015 Acute low back pain 10/24/2010 03/29/20 15 Cyst of bone 06/02/2010 03/29/2015 SVT (supraventricular tachycardia) 01/06/2010 08/03/2016 Other and unspecified disc d isorder of cervical region 11/14/2009 08/03/2016 Cyst 05/27/2009 03/29/2015 Other benign neoplasm of con nective and other soft tissue of unspecified site 04/01/2009 04/02/20 16 TELANG///CAPILLARY DIS NEC/NOS 09/09/2008 03/29/2015 Unspecified hypertrophic and atrophic condition of skin 09/09/2008 04/02/2016 Actinic keratosis 07/02/2008 03/29/2015 Seborrheic Keratosis 07/02/2008 015 SOLAR LENGINES///DYSCHROMIA OTHER 07/02/2008 03/22/2014 Other chronic dermatitis due to solar radiation 07/02/2008 03/29/2015 Iron deficiency anemia, unspecified 10/16/2007 04/02/2016 Anemia, unspecified 10/16/2007 03/29/20 15 Hemorrhage of gastrointestin al tract, unspecified 05/08/2007 03/29/2015 Acute gastritis without mention of hemorrhage 05/08/20 07 04/02/2016 Anal fissure 05/08/2007 04/02/2016 Special screening for malign ant neoplasms, colon 05/08/2007 03/29/2015 Ingrowing nail 10/15/2006 03/29/2015 Other acquired deformity of toe 10/15/2006 03/29/2015 Sciatica 07/25/2006 08/03/2016 Anal fistula 04/02/2016 Internal hemorrhoids without mention of complication 03/29/2015 Other symptoms involving dig estive system(787.99) 03/29/2015 PMH - PAST MEDICAL HISTORY OF 04/02/2016 Overview: RIGHT KNEE ACL DEFICIENT -CHRONIC documented as of this encounter (statuses as of 06/30/2023) [facility]12-12-2014 History of Past illness Narrative* Problem Noted Date Diagnosed Date Resolved Date DM type 2 (diabetes mellitus, type 2) 08/06/2014 04/02/2016 Acquired renal cyst 05/18/2013 04/02/20 16 Sleep apnea 07/01/2012 03/29/2015 Acute low back pain 10/24/2010 03/29/20 15 Cyst of bone 06/02/2010 03/29/2015 SVT (supraventricular tachycardia) 01/06/2010 08/03/2016 Other and unspecified disc d isorder of cervical region 11/14/2009 08/03/2016 Cyst 05/27/2009 03/29/2015 Other benign neoplasm of con nective and other soft tissue of unspecified site 04/01/2009 04/02/20 16 TELANG///CAPILLARY DIS NEC/NOS 09/09/2008 03/29/2015 Unspecified hypertrophic and atrophic condition of skin 09/09/2008 04/02/2016 Actinic keratosis 07/02/2008 03/29/2015 Seborrheic Keratosis 07/02/2008 015 SOLAR LENGINES///DYSCHROMIA OTHER 07/02/2008 03/22/2014 Other chronic dermatitis due to solar radiation 07/02/2008 03/29/2015 Iron deficiency anemia, unspecified 10/16/2007 04/02/2016 Anemia, unspecified 10/16/2007 03/29/20 15 Hemorrhage of gastrointestin al tract, unspecified 05/08/2007 03/29/2015 Acute gastritis without mention of hemorrhage 05/08/20 07 04/02/2016 Anal fissure 05/08/2007 04/02/2016 Special screening for malign ant neoplasms, colon 05/08/2007 03/29/2015 Ingrowing nail 10/15/2006 03/29/2015 Other acquired deformity of toe 10/15/2006 03/29/2015 Sciatica 07/25/2006 08/03/2016 Anal fistula 04/02/2016 Internal hemorrhoids without mention of complication 03/29/2015 Other symptoms involving dig estive system(787.99) 03/29/2015 PMH - PAST MEDICAL HISTORY OF 04/02/2016 Overview: RIGHT KNEE ACL DEFICIENT -CHRONIC documented as of this encounter (statuses as of 07/10/2023) [facility]12-12-[facility] History of Past illness Narrative* Problem Noted Date Diagnosed Date Resolved Date DM type 2 (diabetes mellitus, type 2) 08/06/2014 04/02/2016 Acquired renal cyst 05/18/2013 04/02/20 16 Sleep apnea 07/01/2012 03/29/2015 Acute low back pain 10/24/2010 03/29/20 15 Cyst of bone 06/02/2010 03/29/2015 SVT (supraventricular tachycardia) 01/06/2010 08/03/2016 Other and unspecified disc d isorder of cervical region 11/14/2009 08/03/2016 Cyst 05/27/2009 03/29/2015 Other benign neoplasm of con nective and other soft tissue of unspecified site 04/01/2009 04/02/20 16 TELANG///CAPILLARY DIS NEC/NOS 09/09/2008 03/29/2015 Unspecified hypertrophic and atrophic condition of skin 09/09/2008 04/02/2016 Actinic keratosis 07/02/2008 03/29/2015 Seborrheic Keratosis 07/02/2008 015 SOLAR LENGINES///DYSCHROMIA OTHER 07/02/2008 03/22/2014 Other chronic dermatitis due to solar radiation 07/02/2008 03/29/2015 Iron deficiency anemia, unspecified 10/16/2007 04/02/2016 Anemia, unspecified 10/16/2007 03/29/20 15 Hemorrhage of gastrointestin al tract, unspecified 05/08/2007 03/29/2015 Acute gastritis without mention of hemorrhage 05/08/20 07 04/02/2016 Anal fissure 05/08/2007 04/02/2016 Special screening for malign ant neoplasms, colon 05/08/2007 03/29/2015 Ingrowing nail 10/15/2006 03/29/2015 Other acquired deformity of toe 10/15/2006 03/29/2015 Sciatica 07/25/2006 08/03/2016 Anal fistula 04/02/2016 Internal hemorrhoids without mention of complication 03/29/2015 Other symptoms involving dig estive system(787.99) 03/29/2015 PMH - PAST MEDICAL HISTORY OF 04/02/2016 Overview: RIGHT KNEE ACL DEFICIENT -CHRONIC documented as of this encounter (statuses as of 07/11/2023) [facility]12-[facility] History of Past illness Narrative* Problem Noted Date Diagnosed Date Resolved Date DM type 2 (diabetes mellitus, type 2) 08/06/2014 04/02/2016 Acquired renal cyst 05/18/2013 04/02/20 16 Sleep apnea 07/01/2012 03/29/2015 Acute low back pain 10/24/2010 03/29/20 15 Cyst of bone 06/02/2010 03/29/2015 SVT (supraventricular tachycardia) 01/06/2010 08/03/2016 Other and unspecified disc d isorder of cervical region 11/14/2009 08/03/2016 Cyst 05/27/2009 03/29/2015 Other benign neoplasm of con nective and other soft tissue of unspecified site 04/01/2009 04/02/20 16 TELANG///CAPILLARY DIS NEC/NOS 09/09/2008 03/29/2015 Unspecified hypertrophic and atrophic condition of skin 09/09/2008 04/02/2016 Actinic keratosis 07/02/2008 03/29/2015 Seborrheic Keratosis 07/02/2008 015 SOLAR LENGINES///DYSCHROMIA OTHER 07/02/2008 03/22/2014 Other chronic dermatitis due to solar radiation 07/02/2008 03/29/2015 Iron deficiency anemia, unspecified 10/16/2007 04/02/2016 Anemia, unspecified 10/16/2007 03/29/20 15 Hemorrhage of gastrointestin al tract, unspecified 05/08/2007 03/29/2015 Acute gastritis without mention of hemorrhage 05/08/20 07 04/02/2016 Anal fissure 05/08/2007 04/02/2016 Special screening for malign ant neoplasms, colon 05/08/2007 03/29/2015 Ingrowing nail 10/15/2006 03/29/2015 Other acquired deformity of toe 10/15/2006 03/29/2015 Sciatica 07/25/2006 08/03/2016 Anal fistula 04/02/2016 Internal hemorrhoids without mention of complication 03/29/2015 Other symptoms involving dig estive system(787.99) 03/29/2015 PMH - PAST MEDICAL HISTORY OF 04/02/2016 Overview: RIGHT KNEE ACL DEFICIENT -CHRONIC documented as of this encounter (statuses as of 07/11/2023) [facility]12-12[facility] History of Past illness Narrative* Problem Noted Date Diagnosed Date Resolved Date DM type 2 (diabetes mellitus, type 2) 08/06/2014 04/02/2016 Acquired renal cyst 05/18/2013 04/02/20 16 Sleep apnea 07/01/2012 03/29/2015 Acute low back pain 10/24/2010 03/29/20 15 Cyst of bone 06/02/2010 03/29/2015 SVT (supraventricular tachycardia) 01/06/2010 08/03/2016 Other and unspecified disc d isorder of cervical region 11/14/2009 08/03/2016 Cyst 05/27/2009 03/29/2015 Other benign neoplasm of con nective and other soft tissue of unspecified site 04/01/2009 04/02/20 16 TELANG///CAPILLARY DIS NEC/NOS 09/09/2008 03/29/2015 Unspecified hypertrophic and atrophic condition of skin 09/09/2008 04/02/2016 Actinic keratosis 07/02/2008 03/29/2015 Seborrheic Keratosis 07/02/2008 015 SOLAR LENGINES///DYSCHROMIA OTHER 07/02/2008 03/22/2014 Other chronic dermatitis due to solar radiation 07/02/2008 03/29/2015 Iron deficiency anemia, unspecified 10/16/2007 04/02/2016 Anemia, unspecified 10/16/2007 03/29/20 15 Hemorrhage of gastrointestin al tract, unspecified 05/08/2007 03/29/2015 Acute gastritis without mention of hemorrhage 05/08/20 07 04/02/2016 Anal fissure 05/08/2007 04/02/2016 Special screening for malign ant neoplasms, colon 05/08/2007 03/29/2015 Ingrowing nail 10/15/2006 03/29/2015 Other acquired deformity of toe 10/15/2006 03/29/2015 Sciatica 07/25/2006 08/03/2016 Anal fistula 04/02/2016 Internal hemorrhoids without mention of complication 03/29/2015 Other symptoms involving dig estive system(787.99) 03/29/2015 PMH - PAST MEDICAL HISTORY OF 04/02/2016 Overview: RIGHT KNEE ACL DEFICIENT -CHRONIC documented as of this encounter (statuses as of 07/12/2023) [facility]12-12-[facility] History of Past illness Narrative* Problem Noted Date Diagnosed Date Resolved Date DM type 2 (diabetes mellitus, type 2) 08/06/2014 04/02/2016 Acquired renal cyst 05/18/2013 04/02/20 16 Sleep apnea 07/01/2012 03/29/2015 Acute low back pain 10/24/2010 03/29/20 15 Cyst of bone 06/02/2010 03/29/2015 SVT (supraventricular tachycardia) 01/06/2010 08/03/2016 Other and unspecified disc d isorder of cervical region 11/14/2009 08/03/2016 Cyst 05/27/2009 03/29/2015 Other benign neoplasm of con nective and other soft tissue of unspecified site 04/01/2009 04/02/20 16 TELANG///CAPILLARY DIS NEC/NOS 09/09/2008 03/29/2015 Unspecified hypertrophic and atrophic condition of skin 09/09/2008 04/02/2016 Actinic keratosis 07/02/2008 03/29/2015 Seborrheic Keratosis 07/02/2008 015 SOLAR LENGINES///DYSCHROMIA OTHER 07/02/2008 03/22/2014 Other chronic dermatitis due to solar radiation 07/02/2008 03/29/2015 Iron deficiency anemia, unspecified 10/16/2007 04/02/2016 Anemia, unspecified 10/16/2007 03/29/20 15 Hemorrhage of gastrointestin al tract, unspecified 05/08/2007 03/29/2015 Acute gastritis without mention of hemorrhage 05/08/20 07 04/02/2016 Anal fissure 05/08/2007 04/02/2016 Special screening for malign ant neoplasms, colon 05/08/2007 03/29/2015 Ingrowing nail 10/15/2006 03/29/2015 Other acquired deformity of toe 10/15/2006 03/29/2015 Sciatica 07/25/2006 08/03/2016 Anal fistula 04/02/2016 Internal hemorrhoids without mention of complication 03/29/2015 Other symptoms involving dig estive system(787.99) 03/29/2015 PMH - PAST MEDICAL HISTORY OF 04/02/2016 Overview: RIGHT KNEE ACL DEFICIENT -CHRONIC documented as of this encounter (statuses as of 07/12/2023) [facility]12-12[facility] History of Past illness Narrative* Problem Noted Date Diagnosed Date Resolved Date DM type 2 (diabetes mellitus, type 2) 08/06/2014 04/02/2016 Acquired renal cyst 05/18/2013 04/02/20 16 Sleep apnea 07/01/2012 03/29/2015 Acute low back pain 10/24/2010 03/29/20 15 Cyst of bone 06/02/2010 03/29/2015 SVT (supraventricular tachycardia) 01/06/2010 08/03/2016 Other and unspecified disc d isorder of cervical region 11/14/2009 08/03/2016 Cyst 05/27/2009 03/29/2015 Other benign neoplasm of con nective and other soft tissue of unspecified site 04/01/2009 04/02/20 16 TELANG///CAPILLARY DIS NEC/NOS 09/09/2008 03/29/2015 Unspecified hypertrophic and atrophic condition of skin 09/09/2008 04/02/2016 Actinic keratosis 07/02/2008 03/29/2015 Seborrheic Keratosis 07/02/2008 015 SOLAR LENGINES///DYSCHROMIA OTHER 07/02/2008 03/22/2014 Other chronic dermatitis due to solar radiation 07/02/2008 03/29/2015 Iron deficiency anemia, unspecified 10/16/2007 04/02/2016 Anemia, unspecified 10/16/2007 03/29/20 15 Hemorrhage of gastrointestin al tract, unspecified 05/08/2007 03/29/2015 Acute gastritis without mention of hemorrhage 05/08/20 07 04/02/2016 Anal fissure 05/08/2007 04/02/2016 Special screening for malign ant neoplasms, colon 05/08/2007 03/29/2015 Ingrowing nail 10/15/2006 03/29/2015 Other acquired deformity of toe 10/15/2006 03/29/2015 Sciatica 07/25/2006 08/03/2016 Anal fistula 04/02/2016 Internal hemorrhoids without mention of complication 03/29/2015 Other symptoms involving dig estive system(787.99) 03/29/2015 PMH - PAST MEDICAL HISTORY OF 04/02/2016 Overview: RIGHT KNEE ACL DEFICIENT -CHRONIC documented as of this encounter (statuses as of 07/13/2023) [facility]12-12[facility] History of Past illness Narrative* Problem Noted Date Diagnosed Date Resolved Date DM type 2 (diabetes mellitus, type 2) 08/06/2014 04/02/2016 Acquired renal cyst 05/18/2013 04/02/20 16 Sleep apnea 07/01/2012 03/29/2015 Acute low back pain 10/24/2010 03/29/20 15 Cyst of bone 06/02/2010 03/29/2015 SVT (supraventricular tachycardia) 01/06/2010 08/03/2016 Other and unspecified disc d isorder of cervical region 11/14/2009 08/03/2016 Cyst 05/27/2009 03/29/2015 Other benign neoplasm of con nective and other soft tissue of unspecified site 04/01/2009 04/02/20 16 TELANG///CAPILLARY DIS NEC/NOS 09/09/2008 03/29/2015 Unspecified hypertrophic and atrophic condition of skin 09/09/2008 04/02/2016 Actinic keratosis 07/02/2008 03/29/2015 Seborrheic Keratosis 07/02/2008 015 SOLAR LENGINES///DYSCHROMIA OTHER 07/02/2008 03/22/2014 Other chronic dermatitis due to solar radiation 07/02/2008 03/29/2015 Iron deficiency anemia, unspecified 10/16/2007 04/02/2016 Anemia, unspecified 10/16/2007 03/29/20 15 Hemorrhage of gastrointestin al tract, unspecified 05/08/2007 03/29/2015 Acute gastritis without mention of hemorrhage 05/08/20 07 04/02/2016 Anal fissure 05/08/2007 04/02/2016 Special screening for malign ant neoplasms, colon 05/08/2007 03/29/2015 Ingrowing nail 10/15/2006 03/29/2015 Other acquired deformity of toe 10/15/2006 03/29/2015 Sciatica 07/25/2006 08/03/2016 Anal fistula 04/02/2016 Internal hemorrhoids without mention of complication 03/29/2015 Other symptoms involving dig estive system(787.99) 03/29/2015 PMH - PAST MEDICAL HISTORY OF 04/02/2016 Overview: RIGHT KNEE ACL DEFICIENT -CHRONIC documented as of this encounter (statuses as of 07/25/2023) [facility]12[facility] History of Past illness Narrative* Problem Noted Date Diagnosed Date Resolved Date DM type 2 (diabetes mellitus, type 2) 08/06/2014 04/02/2016 Acquired renal cyst 05/18/2013 04/02/20 16 Sleep apnea 07/01/2012 03/29/2015 Acute low back pain 10/24/2010 03/29/20 15 Cyst of bone 06/02/2010 03/29/2015 SVT (supraventricular tachycardia) 01/06/2010 08/03/2016 Other and unspecified disc d isorder of cervical region 11/14/2009 08/03/2016 Cyst 05/27/2009 03/29/2015 Other benign neoplasm of con nective and other soft tissue of unspecified site 04/01/2009 04/02/20 16 TELANG///CAPILLARY DIS NEC/NOS 09/09/2008 03/29/2015 Unspecified hypertrophic and atrophic condition of skin 09/09/2008 04/02/2016 Actinic keratosis 07/02/2008 03/29/2015 Seborrheic Keratosis 07/02/2008 015 SOLAR LENGINES///DYSCHROMIA OTHER 07/02/2008 03/22/2014 Other chronic dermatitis due to solar radiation 07/02/2008 03/29/2015 Iron deficiency anemia, unspecified 10/16/2007 04/02/2016 Anemia, unspecified 10/16/2007 03/29/20 15 Hemorrhage of gastrointestin al tract, unspecified 05/08/2007 03/29/2015 Acute gastritis without mention of hemorrhage 05/08/20 07 04/02/2016 Anal fissure 05/08/2007 04/02/2016 Special screening for malign ant neoplasms, colon 05/08/2007 03/29/2015 Ingrowing nail 10/15/2006 03/29/2015 Other acquired deformity of toe 10/15/2006 03/29/2015 Sciatica 07/25/2006 08/03/2016 Anal fistula 04/02/2016 Internal hemorrhoids without mention of complication 03/29/2015 Other symptoms involving dig estive system(787.99) 03/29/2015 PMH - PAST MEDICAL HISTORY OF 04/02/2016 Overview: RIGHT KNEE ACL DEFICIENT -CHRONIC documented as of this encounter (statuses as of 07/30/2023) [facility]12[facility] History of Past illness Narrative* Problem Noted Date Diagnosed Date Resolved Date DM type 2 (diabetes mellitus, type 2) 08/06/2014 04/02/2016 Acquired renal cyst 05/18/2013 04/02/20 16 Sleep apnea 07/01/2012 03/29/2015 Acute low back pain 10/24/2010 03/29/20 15 Cyst of bone 06/02/2010 03/29/2015 SVT (supraventricular tachycardia) 01/06/2010 08/03/2016 Other and unspecified disc d isorder of cervical region 11/14/2009 08/03/2016 Cyst 05/27/2009 03/29/2015 Other benign neoplasm of con nective and other soft tissue of unspecified site 04/01/2009 04/02/20 16 TELANG///CAPILLARY DIS NEC/NOS 09/09/2008 03/29/2015 Unspecified hypertrophic and atrophic condition of skin 09/09/2008 04/02/2016 Actinic keratosis 07/02/2008 03/29/2015 Seborrheic Keratosis 07/02/2008 015 SOLAR LENGINES///DYSCHROMIA OTHER 07/02/2008 03/22/2014 Other chronic dermatitis due to solar radiation 07/02/2008 03/29/2015 Iron deficiency anemia, unspecified 10/16/2007 04/02/2016 Anemia, unspecified 10/16/2007 03/29/20 15 Hemorrhage of gastrointestin al tract, unspecified 05/08/2007 03/29/2015 Acute gastritis without mention of hemorrhage 05/08/20 07 04/02/2016 Anal fissure 05/08/2007 04/02/2016 Special screening for malign ant neoplasms, colon 05/08/2007 03/29/2015 Ingrowing nail 10/15/2006 03/29/2015 Other acquired deformity of toe 10/15/2006 03/29/2015 Sciatica 07/25/2006 08/03/2016 Anal fistula 04/02/2016 Internal hemorrhoids without mention of complication 03/29/2015 Other symptoms involving dig estive system(787.99) 03/29/2015 PMH - PAST MEDICAL HISTORY OF 04/02/2016 Overview: RIGHT KNEE ACL DEFICIENT -CHRONIC documented as of this encounter (statuses as of 08/01/2023) [facility] History of Past illness Narrative* Problem Noted Date Diagnosed Date Resolved Date DM type 2 (diabetes mellitus, type 2) 08/06/2014 04/02/2016 Acquired renal cyst 05/18/2013 04/02/20 16 Sleep apnea 07/01/2012 03/29/2015 Acute low back pain 10/24/2010 03/29/20 15 Cyst of bone 06/02/2010 03/29/2015 SVT (supraventricular tachycardia) 01/06/2010 08/03/2016 Other and unspecified disc d isorder of cervical region 11/14/2009 08/03/2016 Cyst 05/27/2009 03/29/2015 Other benign neoplasm of con nective and other soft tissue of unspecified site 04/01/2009 04/02/20 16 TELANG///CAPILLARY DIS NEC/NOS 09/09/2008 03/29/2015 Unspecified hypertrophic and atrophic condition of skin 09/09/2008 04/02/2016 Actinic keratosis 07/02/2008 03/29/2015 Seborrheic Keratosis 07/02/2008 015 SOLAR LENGINES///DYSCHROMIA OTHER 07/02/2008 03/22/2014 Other chronic dermatitis due to solar radiation 07/02/2008 03/29/2015 Iron deficiency anemia, unspecified 10/16/2007 04/02/2016 Anemia, unspecified 10/16/2007 03/29/20 15 Hemorrhage of gastrointestin al tract, unspecified 05/08/2007 03/29/2015 Acute gastritis without mention of hemorrhage 05/08/20 07 04/02/2016 Anal fissure 05/08/2007 04/02/2016 Special screening for malign ant neoplasms, colon 05/08/2007 03/29/2015 Ingrowing nail 10/15/2006 03/29/2015 Other acquired deformity of toe 10/15/2006 03/29/2015 Sciatica 07/25/2006 08/03/2016 Anal fistula 04/02/2016 Internal hemorrhoids without mention of complication 03/29/2015 Other symptoms involving dig estive system(787.99) 03/29/2015 PMH - PAST MEDICAL HISTORY OF 04/02/2016 Overview: RIGHT KNEE ACL DEFICIENT -CHRONIC documented as of this encounter (statuses as of 08/01/2023) [facility] History of Past illness Narrative* Problem Noted Date Diagnosed Date Resolved Date DM type 2 (diabetes mellitus, type 2) 08/06/2014 04/02/2016 Acquired renal cyst 05/18/2013 04/02/20 16 Sleep apnea 07/01/2012 03/29/2015 Acute low back pain 10/24/2010 03/29/20 15 Cyst of bone 06/02/2010 03/29/2015 SVT (supraventricular tachycardia) 01/06/2010 08/03/2016 Other and unspecified disc d isorder of cervical region 11/14/2009 08/03/2016 Cyst 05/27/2009 03/29/2015 Other benign neoplasm of con nective and other soft tissue of unspecified site 04/01/2009 04/02/20 16 TELANG///CAPILLARY DIS NEC/NOS 09/09/2008 03/29/2015 Unspecified hypertrophic and atrophic condition of skin 09/09/2008 04/02/2016 Actinic keratosis 07/02/2008 03/29/2015 Seborrheic Keratosis 07/02/2008 015 SOLAR LENGINES///DYSCHROMIA OTHER 07/02/2008 03/22/2014 Other chronic dermatitis due to solar radiation 07/02/2008 03/29/2015 Iron deficiency anemia, unspecified 10/16/2007 04/02/2016 Anemia, unspecified 10/16/2007 03/29/20 15 Hemorrhage of gastrointestin al tract, unspecified 05/08/2007 03/29/2015 Acute gastritis without mention of hemorrhage 05/08/20 07 04/02/2016 Anal fissure 05/08/2007 04/02/2016 Special screening for malign ant neoplasms, colon 05/08/2007 03/29/2015 Ingrowing nail 10/15/2006 03/29/2015 Other acquired deformity of toe 10/15/2006 03/29/2015 Sciatica 07/25/2006 08/03/2016 Anal fistula 04/02/2016 Internal hemorrhoids without mention of complication 03/29/2015 Other symptoms involving dig estive system(787.99) 03/29/2015 PMH - PAST MEDICAL HISTORY OF 04/02/2016 Overview: RIGHT KNEE ACL DEFICIENT -CHRONIC documented as of this encounter (statuses as of 08/02/2023) [facility] History of Past illness Narrative* Problem Noted Date Diagnosed Date Resolved Date DM type 2 (diabetes mellitus, type 2) 08/06/2014 04/02/2016 Acquired renal cyst 05/18/2013 04/02/20 16 Sleep apnea 07/01/2012 03/29/2015 Acute low back pain 10/24/2010 03/29/20 15 Cyst of bone 06/02/2010 03/29/2015 SVT (supraventricular tachycardia) 01/06/2010 08/03/2016 Other and unspecified disc d isorder of cervical region 11/14/2009 08/03/2016 Cyst 05/27/2009 03/29/2015 Other benign neoplasm of con nective and other soft tissue of unspecified site 04/01/2009 04/02/20 16 TELANG///CAPILLARY DIS NEC/NOS 09/09/2008 03/29/2015 Unspecified hypertrophic and atrophic condition of skin 09/09/2008 04/02/2016 Actinic keratosis 07/02/2008 03/29/2015 Seborrheic Keratosis 07/02/2008 015 SOLAR LENGINES///DYSCHROMIA OTHER 07/02/2008 03/22/2014 Other chronic dermatitis due to solar radiation 07/02/2008 03/29/2015 Iron deficiency anemia, unspecified 10/16/2007 04/02/2016 Anemia, unspecified 10/16/2007 03/29/20 15 Hemorrhage of gastrointestin al tract, unspecified 05/08/2007 03/29/2015 Acute gastritis without mention of hemorrhage 05/08/20 07 04/02/2016 Anal fissure 05/08/2007 04/02/2016 Special screening for malign ant neoplasms, colon 05/08/2007 03/29/2015 Ingrowing nail 10/15/2006 03/29/2015 Other acquired deformity of toe 10/15/2006 03/29/2015 Sciatica 07/25/2006 08/03/2016 Anal fistula 04/02/2016 Internal hemorrhoids without mention of complication 03/29/2015 Other symptoms involving dig estive system(787.99) 03/29/2015 PMH - PAST MEDICAL HISTORY OF 04/02/2016 Overview: RIGHT KNEE ACL DEFICIENT -CHRONIC documented as of this encounter (statuses as of 08/03/2023) [facility] History of Past illness Narrative* Problem Noted Date Diagnosed Date Resolved Date DM type 2 (diabetes mellitus, type 2) 08/06/2014 04/02/2016 Acquired renal cyst 05/18/2013 04/02/20 16 Sleep apnea 07/01/2012 03/29/2015 Acute low back pain 10/24/2010 03/29/20 15 Cyst of bone 06/02/2010 03/29/2015 SVT (supraventricular tachycardia) 01/06/2010 08/03/2016 Other and unspecified disc d isorder of cervical region 11/14/2009 08/03/2016 Cyst 05/27/2009 03/29/2015 Other benign neoplasm of con nective and other soft tissue of unspecified site 04/01/2009 04/02/20 16 TELANG///CAPILLARY DIS NEC/NOS 09/09/2008 03/29/2015 Unspecified hypertrophic and atrophic condition of skin 09/09/2008 04/02/2016 Actinic keratosis 07/02/2008 03/29/2015 Seborrheic Keratosis 07/02/2008 015 SOLAR LENGINES///DYSCHROMIA OTHER 07/02/2008 03/22/2014 Other chronic dermatitis due to solar radiation 07/02/2008 03/29/2015 Iron deficiency anemia, unspecified 10/16/2007 04/02/2016 Anemia, unspecified 10/16/2007 03/29/20 15 Hemorrhage of gastrointestin al tract, unspecified 05/08/2007 03/29/2015 Acute gastritis without mention of hemorrhage 05/08/20 07 04/02/2016 Anal fissure 05/08/2007 04/02/2016 Special screening for malign ant neoplasms, colon 05/08/2007 03/29/2015 Ingrowing nail 10/15/2006 03/29/2015 Other acquired deformity of toe 10/15/2006 03/29/2015 Sciatica 07/25/2006 08/03/2016 Anal fistula 04/02/2016 Internal hemorrhoids without mention of complication 03/29/2015 Other symptoms involving dig estive system(787.99) 03/29/2015 PMH - PAST MEDICAL HISTORY OF 04/02/2016 Overview: RIGHT KNEE ACL DEFICIENT -CHRONIC documented as of this encounter (statuses as of 09/01/2023) [facility] History of Past illness Narrative* Problem Noted Date Diagnosed Date Resolved Date DM type 2 (diabetes mellitus, type 2) 08/06/2014 04/02/2016 Acquired renal cyst 05/18/2013 04/02/20 16 Sleep apnea 07/01/2012 03/29/2015 Acute low back pain 10/24/2010 03/29/20 15 Cyst of bone 06/02/2010 03/29/2015 SVT (supraventricular tachycardia) 01/06/2010 08/03/2016 Other and unspecified disc d isorder of cervical region 11/14/2009 08/03/2016 Cyst 05/27/2009 03/29/2015 Other benign neoplasm of con nective and other soft tissue of unspecified site 04/01/2009 04/02/20 16 TELANG///CAPILLARY DIS NEC/NOS 09/09/2008 03/29/2015 Unspecified hypertrophic and atrophic condition of skin 09/09/2008 04/02/2016 Actinic keratosis 07/02/2008 03/29/2015 Seborrheic Keratosis 07/02/2008 015 SOLAR LENGINES///DYSCHROMIA OTHER 07/02/2008 03/22/2014 Other chronic dermatitis due to solar radiation 07/02/2008 03/29/2015 Iron deficiency anemia, unspecified 10/16/2007 04/02/2016 Anemia, unspecified 10/16/2007 03/29/20 15 Hemorrhage of gastrointestin al tract, unspecified 05/08/2007 03/29/2015 Acute gastritis without mention of hemorrhage 05/08/20 07 04/02/2016 Anal fissure 05/08/2007 04/02/2016 Special screening for malign ant neoplasms, colon 05/08/2007 03/29/2015 Ingrowing nail 10/15/2006 03/29/2015 Other acquired deformity of toe 10/15/2006 03/29/2015 Sciatica 07/25/2006 08/03/2016 Anal fistula 04/02/2016 Internal hemorrhoids without mention of complication 03/29/2015 Other symptoms involving dig estive system(787.99) 03/29/2015 PMH - PAST MEDICAL HISTORY OF 04/02/2016 Overview: RIGHT KNEE ACL DEFICIENT -CHRONIC documented as of this encounter (statuses as of 09/27/2023) [facility]12[facility] History of Past illness Narrative* Problem Noted Date Diagnosed Date Resolved Date DM type 2 (diabetes mellitus, type 2) 08/06/2014 04/02/2016 Acquired renal cyst 05/18/2013 04/02/20 16 Sleep apnea 07/01/2012 03/29/2015 Acute low back pain 10/24/2010 03/29/20 15 Cyst of bone 06/02/2010 03/29/2015 SVT (supraventricular tachycardia) 01/06/2010 08/03/2016 Other and unspecified disc d isorder of cervical region 11/14/2009 08/03/2016 Cyst 05/27/2009 03/29/2015 Other benign neoplasm of con nective and other soft tissue of unspecified site 04/01/2009 04/02/20 16 TELANG///CAPILLARY DIS NEC/NOS 09/09/2008 03/29/2015 Unspecified hypertrophic and atrophic condition of skin 09/09/2008 04/02/2016 Actinic keratosis 07/02/2008 03/29/2015 Seborrheic Keratosis 07/02/2008 015 SOLAR LENGINES///DYSCHROMIA OTHER 07/02/2008 03/22/2014 Other chronic dermatitis due to solar radiation 07/02/2008 03/29/2015 Iron deficiency anemia, unspecified 10/16/2007 04/02/2016 Anemia, unspecified 10/16/2007 03/29/20 15 Hemorrhage of gastrointestin al tract, unspecified 05/08/2007 03/29/2015 Acute gastritis without mention of hemorrhage 05/08/20 07 04/02/2016 Anal fissure 05/08/2007 04/02/2016 Special screening for malign ant neoplasms, colon 05/08/2007 03/29/2015 Ingrowing nail 10/15/2006 03/29/2015 Other acquired deformity of toe 10/15/2006 03/29/2015 Sciatica 07/25/2006 08/03/2016 Anal fistula 04/02/2016 Internal hemorrhoids without mention of complication 03/29/2015 Other symptoms involving dig estive system(787.99) 03/29/2015 PMH - PAST MEDICAL HISTORY OF 04/02/2016 Overview: RIGHT KNEE ACL DEFICIENT -CHRONIC documented as of this encounter (statuses as of 10/09/2023) [facility]12-[facility] History of Past illness Narrative* Problem Noted Date Diagnosed Date Resolved Date DM type 2 (diabetes mellitus, type 2) 08/06/2014 04/02/2016 Acquired renal cyst 05/18/2013 04/02/20 16 Sleep apnea 07/01/2012 03/29/2015 Acute low back pain 10/24/2010 03/29/20 15 Cyst of bone 06/02/2010 03/29/2015 SVT (supraventricular tachycardia) 01/06/2010 08/03/2016 Other and unspecified disc d isorder of cervical region 11/14/2009 08/03/2016 Cyst 05/27/2009 03/29/2015 Other benign neoplasm of con nective and other soft tissue of unspecified site 04/01/2009 04/02/20 16 TELANG///CAPILLARY DIS NEC/NOS 09/09/2008 03/29/2015 Unspecified hypertrophic and atrophic condition of skin 09/09/2008 04/02/2016 Actinic keratosis 07/02/2008 03/29/2015 Seborrheic Keratosis 07/02/2008 015 SOLAR LENGINES///DYSCHROMIA OTHER 07/02/2008 03/22/2014 Other chronic dermatitis due to solar radiation 07/02/2008 03/29/2015 Iron deficiency anemia, unspecified 10/16/2007 04/02/2016 Anemia, unspecified 10/16/2007 03/29/20 15 Hemorrhage of gastrointestin al tract, unspecified 05/08/2007 03/29/2015 Acute gastritis without mention of hemorrhage 05/08/20 07 04/02/2016 Anal fissure 05/08/2007 04/02/2016 Special screening for malign ant neoplasms, colon 05/08/2007 03/29/2015 Ingrowing nail 10/15/2006 03/29/2015 Other acquired deformity of toe 10/15/2006 03/29/2015 Sciatica 07/25/2006 08/03/2016 Anal fistula 04/02/2016 Internal hemorrhoids without mention of complication 03/29/2015 Other symptoms involving dig estive system(787.99) 03/29/2015 PMH - PAST MEDICAL HISTORY OF 04/02/2016 Overview: RIGHT KNEE ACL DEFICIENT -CHRONIC documented as of this encounter (statuses as of 10/16/2023) [facility] Diagnosis Well controlled persistent asthma- Primary Unspecified asthma Diaphragm paralysis Disorders of diaphragm BROCK (obstructive sleep apnea) Obstructive sleep apnea (adult) (pediatric) [facility] Diagnosis Acquired cyst of kidney- Primary Rising PSA level Elevated prostate specific antigen (PSA) [facility] Diagnosis PAF (paroxysmal atrial fibrillation) ([facility])- Primary Atrial fibrillation PVC (premature ventricular contraction) Other premature beats Essential hypertension Unspecified essential hypertension Hyperlipidemia, unspecified hyperlipidemia type BROCK (obstructive sleep apnea) Obstructive sleep apnea (adult) (pediatric) [facility]* Diagnosis Screening for genitourinary condition Screening for other and unspecified genitourinary condition [facility]* Diagnosis Diabetes mellitus type 2, controlled, without complications (HCC) Type II or unspecified type diabetes mellitus without mention of complication, not stated as uncontrolled [facility] Diagnosis Controlled type 2 diabetes mellitus without complication, without long-term current use of insulin ([facility])- Primary Prostate cancer screening Special screening for malignant neoplasm of prostate Diabetes mellitus type 2, controlled, without complications (HCC) Type II or unspecified type diabetes mellitus without mention of complication, not stated as uncontrolled [facility] Diagnosis Acquired cyst of kidney Rising PSA level Elevated prostate specific antigen (PSA) [facility]* Diagnosis Asthma, unspecified asthma severity, unspecified whether complicated, unspecified whether persistent- Primary [facility] Diagnosis Wheezing Productive cough Cough [facility] Diagnosis Well controlled persistent asthma Unspecified asthma [facility] Diagnosis Asthma, late onset, severe persistent, uncomplicated- Primary BROCK (obstructive sleep apnea) Obstructive sleep apnea (adult) (pediatric) Allergy, subsequent encounter Post-nasal drip Postnasal drip Dyspnea and respiratory abnormalities Other dyspnea and respiratory abnormality Diaphragm paralysis Disorders of diaphragm [facility] Diagnosis Asthma, late onset, severe persistent, uncomplicated [facility] Diagnosis Asthma, late onset, severe persistent, uncomplicated- Primary BROCK (obstructive sleep apnea) Obstructive sleep apnea (adult) (pediatric) Allergy, subsequent encounter Diaphragm paralysis Disorders of diaphragm [facility] Diagnosis Nephrolithiasis- Primary Calculus of kidney Screening for genitourinary condition Screening for other and unspecified genitourinary condition [facility]* Diagnosis Asthma, moderate persistent, poorly-controlled- Primary Unspecified asthma Allergic rhinitis due to dust mite Need for influenza vaccination Need for prophylactic vaccination and inoculation against influenza [facility] Diagnosis COVID-19 virus infection- Primary [facility] Diagnosis COVID- Primary [facility]* Diagnosis PAF (paroxysmal atrial fibrillation) ([facility])- Primary Atrial fibrillation Essential hypertension Unspecified essential hypertension Hyperlipidemia, unspecified hyperlipidemia type BROCK (obstructive sleep apnea) Obstructive sleep apnea (adult) (pediatric) Obesity, Class II, BMI 35-39.9 Obesity, unspecified Controlled type 2 diabetes mellitus without complication, without long-term current use of insulin ([facility]) [facility]* Diagnosis Nephrolithiasis- Primary Calculus of kidney Urine volume deficient Oliguria and anuria Hyperoxaluria Other specified disorders of carbohydrate transport and metabolism Hypernatriuria Hyperosmolality and/or hypernatremia Hyperuricosuria Other nonspecific finding on examination of urine [facility]* Diagnosis Sensorineural hearing loss (SNHL) of both ears- Primary [facility]* Diagnosis Moderate persistent asthma without complication- Primary Unspecified asthma Allergic rhinitis due to dust mite [facility] Diagnosis Diabetes mellitus type 2, controlled, without complications (HCC) Type II or unspecified type diabetes mellitus without mention of complication, not stated as uncontrolled [facility] Diagnosis Moderate persistent asthma without complication Unspecified asthma [facility] Diagnosis Moderate persistent asthma without complication- Primary Unspecified asthma Other eosinophilia [facility]* Diagnosis Controlled type 2 diabetes mellitus without complication, without long-term current use of insulin (HCC) [facility]* Diagnosis Moderate persistent asthma without complication- Primary Unspecified asthma Allergic rhinitis due to dust mite [facility] Diagnosis Moderate persistent asthma without complication Unspecified asthma [facility] Diagnosis Moderate persistent asthma without complication- Primary Unspecified asthma House dust mite allergy Allergy, unspecified not elsewhere classified [facility] Diagnosis Allergy, subsequent encounter Post-nasal drip Postnasal drip [facility] Diagnosis Acquired cyst of kidney- Primary Rising PSA level Elevated prostate specific antigen (PSA) BPH with urinary obstruction Hypertrophy of prostate with urinary obstruction and other lower urinary tract symptoms (LUTS) Malignant neoplasm of urinary bladder, unspecified site ([facility]) Stage 3a chronic kidney disease (HCC) [facility]* Diagnosis Screening for genitourinary condition Screening for other and unspecified genitourinary condition [facility]* Diagnosis PAF (paroxysmal atrial fibrillation) ([facility])- Primary Atrial fibrillation Essential hypertension Unspecified essential hypertension Hyperlipidemia, unspecified hyperlipidemia type PVC (premature ventricular contraction) Other premature beats [facility]* Diagnosis Nephrolithiasis- Primary Calculus of kidney Urine volume deficient Oliguria and anuria Hyperoxaluria Other specified disorders of carbohydrate transport and metabolism Aciduria ([facility]) Other nonspecific finding on examination of urine [facility]* Diagnosis Moderate persistent asthma without complication- Primary Unspecified asthma Allergy, subsequent encounter [facility]* Diagnosis Sensorineural hearing loss (SNHL) of both ears- Primary [facility]* Diagnosis Sensorineural hearing loss (SNHL) of both ears- Primary [facility]* Diagnosis Acute right-sided low back pain without sciatica- Primary Hematuria, unspecified type [facility]* Diagnosis Moderate persistent asthma without complication Unspecified asthma [facility] Diagnosis Moderate persistent asthma without complication- Primary Unspecified asthma Allergy, subsequent encounter [facility] Diagnosis Right hip pain- Primary Pain in joint, pelvic region and thigh Right groin pain Abdominal pain, right lower quadrant [facility] Diagnosis Right inguinal pain- Primary Abdominal pain, right lower quadrant Encounter for immunization Need for other specified prophylactic vaccination against single bacterial disease documented [facility] Diagnosis Right groin pain- Primary Abdominal pain, right lower quadrant [facility]* Diagnosis Pre-op evaluation- Primary Preoperative examination, unspecified Moderate persistent asthma without complication Unspecified asthma Essential hypertension Unspecified essential hypertension Hyperlipidemia, unspecified hyperlipidemia type Obesity, Class I, BMI 30-34.9 Obesity, unspecified BROCK (obstructive sleep apnea) Obstructive sleep apnea (adult) (pediatric) PAF (paroxysmal atrial fibrillation) (HCC) Atrial fibrillation Stage 3a chronic kidney disease (HCC) Type 2 diabetes mellitus with stage 3a chronic kidney disease, 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 Right groin pain Abdominal pain, right lower quadrant [facility] Diagnosis Right groin pain- Primary Abdominal pain, right lower quadrant Right groin pain Abdominal pain, right lower quadrant [facility] Diagnosis Right hip pain Pain in joint, pelvic region and thigh Right groin pain Abdominal pain, right lower quadrant documented [facility]* Diagnosis Nephrolithiasis Calculus of kidney [facility] Diagnosis Acquired cyst of kidney Rising PSA level Elevated prostate specific antigen (PSA) BPH with urinary obstruction Hypertrophy of prostate with urinary obstruction and other lower urinary tract symptoms (LUTS) Malignant neoplasm of urinary bladder, unspecified site (HCC) documented [facility]* Diagnosis Nephrolithiasis Calculus of kidney [facility]* Diagnosis Right groin pain- Primary Abdominal pain, right lower quadrant Acquired cyst of kidney- Primary BPH with urinary obstruction Hypertrophy of prostate with urinary obstruction and other lower urinary tract symptoms (LUTS) [facility] Diagnosis Acquired cyst of kidney- Primary BPH with urinary obstruction Hypertrophy of prostate with urinary obstruction and other lower urinary tract symptoms (LUTS) [facility]* Diagnosis COVID-19 virus infection- Primary [facility] Diagnosis COVID-19 virus infection- Primary documented in this encounter [facility]* Diagnosis PAF (paroxysmal atrial fibrillation) (HCC)- Primary Atrial fibrillation Essential hypertension Unspecified essential hypertension Mixed hyperlipidemia PVC (premature ventricular contraction) Other premature beats BPH with urinary obstruction- Primary Hypertrophy of prostate with urinary obstruction and other lower urinary tract symptoms (LUTS) Asymptomatic microscopic hematuria documented in this encounter [facility]* Diagnosis BPH with urinary obstruction- Primary Hypertrophy of prostate with urinary obstruction and other lower urinary tract symptoms (LUTS) Asymptomatic microscopic hematuria documented in this encounter [facility]* Diagnosis Other secondary osteoarthritis of right knee- Primary documented in this encounter [facility]* Diagnosis Right knee pain, unspecified chronicity documented in this encounter [facility]* Diagnosis Essential hypertension- Primary Unspecified essential hypertension CKD stage G2/A2, GFR 60-89 and albumin creatinine ratio 30-299 mg/g Controlled type 2 diabetes mellitus without complication, without long-term current use of insulin (HCC) Anemia, unspecified type PAF (paroxysmal atrial fibrillation) (HCC) Atrial fibrillation Erectile dysfunction, unspecified erectile dysfunction type Abnormal CT scan Other nonspecific (abnormal) findings on radiological and other examinations of body structure Encounter for screening for osteoporosis Special screening for osteoporosis Vitamin D deficiency Unspecified vitamin D deficiency documented in this encounter [facility]* Diagnosis Controlled type 2 diabetes mellitus without complication, without long-term current use of insulin (HCC) documented in this encounter [facility]* Diagnosis Controlled type 2 diabetes mellitus without complication, without long-term current use of insulin (HCC)- Primary Function kidney decreased Unspecified disorder of kidney and ureter Anemia, unspecified type documented in this encounter [facility] [place] for referral (narrative)* Diagnostic Procedure Only (Routine) - Pending Review Specialty Diagnoses / Procedures Referred By Memo leiva Referred To Contact US IMAGING Diagnoses Acquired cyst of kidney Rising PSA level Procedures US KIDNEY/BLADDER US RETROPERITONEAL REAL TIME W/IMAGE COMPLETE Naveed Tyler MD [address] [place] [address] Us Imaging Referral ID Status Reason Start Date Expiration Date Visits Requested Visits Authorized [id number] Pending Review Auto-Generat ed Referral 01/01/2022 01/31/2023 1 1 [facility] [place] for referral (narrative)* Diagnostic Procedure Only (Routine) - Closed Specialty Diagnoses / [facility] Diagnoses Acquired cyst of kidney Rising PSA level Procedures US KIDNEY/BLADDER US RETROPERITONEAL REAL TIME W/IMAGE COMPLETE Naveed Tyler MD [address] [place] [address] Us Imaging Referral ID Status Reason Start Date Expiration Date V isits Requested Visits Authorized [id number] Closed Auto-Generate d Referral 01/01/2022 01/31/2023 1 1 [facility] [place] for referral (narrative)* Outpatient Procedure (Routine) - Authorized Specialty Diagnoses / Procedures [facility] Diagnoses Asthma, late onset, severe persistent, uncomplicated Procedures NITRIC OXIDE, EXHALED NITRIC OXIDE GAS DETERMINATION Alice Holt PA-C [address] [address] Respiratory [place] [address] [place] [address] Referral ID Status Reason Start Date Expiration Date Visits Requested Visits Authorized [id number] Authorized Auto-Generat ed Referral 04/02/2022 05/02/2023 1 1 * Outpatient Procedure (Routine) - Authorized Specialty Diagnoses / Procedures Referred By Contac t Referred To Contact [facility] Diagnoses Dyspnea and respiratory abnormalities Procedures ECHO ECHO TTHRC R-T 2D W/WOM-MODE COMPL SPEC&COLR D Alice Holt PA-C [address] [address] [facility] [place] [address] [place] [address] Referral ID Status Reason Start Date Expiration Date Visits Requested Visits Authorized [id number] Authorized Auto-Generat ed Referral 04/02/2022 04/02/2023 1 1 * Outpatient Procedure (Routine) - Closed Specialty Diagnoses / Procedures Referred By Contac t Referred To [facility] [place] Diagnoses Well controlled persistent asthma Procedures NITRIC OXIDE, EXHALED NITRIC OXIDE GAS DETERMINATION Alice Holt PA-C [email or web address] [address] [address] Referral ID Status Reason Start Date Expiration Date V isits Requested Visits Authorized [id number] Closed Auto-Generate d Referral 04/02/2022 05/02/2023 1 1 * Outpatient Procedure (Routine) - Closed Specialty Diagnoses / Procedures Referred By Contac t Referred To [facility] [place] Diagnoses Well controlled persistent asthma Procedures SPIROMETRY BASELINE ONLY SPMTRY W/VC EXPIRATORY CHARLINE W/WO MXML VOL VNTJ Alice Holt PA-C [email or web address] [address] [address] Referral ID Status Reason Start Date Expiration Date V isits Requested Visits Authorized [id number] Closed Auto-Generate d Referral 04/02/2022 05/02/2023 1 1 [facility] [place] for referral (narrative)* Outpatient Procedure (Routine) - Authorized Specialty Diagnoses / Procedures Referred By Contac t Referred To [facility] Diagnoses Asthma, late onset, severe persistent, uncomplicated Allergy, subsequent encounter Procedures NITRIC OXIDE, EXHALED NITRIC OXIDE GAS DETERMINATION Alice Holt PA-C [address] [place] [address] [address] Referral ID Status Reason Start Date Expiration Date Visits Requested Visits Authorized [id number] Authorized Auto-Generat ed Referral 05/03/2022 06/02/2023 1 1 [facility] [place] for referral (narrative)* Diagnostic Procedure Only (Routine) - Authorized Specialty Diagnoses / Procedures Referred By Contac t Referred To Contact XR IMAGING Diagnoses Nephrolithiasis Procedures XR ABDOMEN 3V KUB W/OBLIQUES RADIOLOGIC EXAM ABDOMEN 3+ VIEWS Navin Herbert PA-C [address] [place] [id number] Xr Imaging Referral ID Status Reason Start Date Expiration Date Visits Requested Visits Authorized [id number] Authorized Auto-Generat ed Referral 2 08/19/2023 1 1 * Diagnostic Procedure Only (Routine) - Authorized Specialty Diagnoses / Procedures Referred By Memo t Referred To Contact US IMAGING Diagnoses Nephrolithiasis Procedures US KIDNEY/BLADDER US RETROPERITONEAL REAL TIME W/IMAGE COMPLETE Navin Herbert PA-C [address] [place] [phone] Us Imaging Referral ID Status Reason Start Date Expiration Date Visits Requested Visits Authorized [id number] Authorized Auto-Generat ed Referral 2 08/19/2023 1 1 [facility] [place] for referral (narrative)* Outpatient Procedure (Routine) - Authorized Specialty Diagnoses / Procedures Referred By Contac t Referred To Contact [facility] Diagnoses Moderate persistent asthma without complication Procedures NITRIC OXIDE, EXHALED NITRIC OXIDE GAS DETERMINATION Haven Marie MD [address] [address] Respiratory [place] [address] [place] [address] Referral ID Status Reason Start Date Expiration Date Visits Requested Visits Authorized [id number] Authorized Auto-Generat ed Referral 08/02/2022 09/01/2023 1 1 [facility] [place] for referral (narrative)* Outpatient Procedure (Routine) - Authorized Specialty Diagnoses / Procedures Referred By [facility] Referred To [facility] Diagnoses Moderate persistent asthma without complication Procedures NITRIC OXIDE, EXHALED NITRIC OXIDE GAS DETERMINATION Thuy Valenzuela MD [address] [facility] [place] [place] [address] [facility] [address] [place] [address] Referral ID Status Reason Start Date Expiration Date Visits Requested Visits Authorized [id number] Authorized Auto-Generat ed Referral 09/17/2022 10/17/2023 1 1 * Outpatient Procedure (Routine) - Pending Review Specialty Diagnoses / Procedures [facility] Ref[facility] To [facility] Diagnoses Moderate persistent asthma without complication Procedures NITRIC OXIDE, EXHALED NITRIC OXIDE GAS DETERMINATION Thuy Valenzuela MD [address] [facility] [place] [address] [facility] [address] [place] [address] Referral ID Status Reason Start Date Expiration Date Visits Requested Visits Authorized [id number] Pending Review Auto-Generat ed Referral 09/17/2022 10/17/2023 1 1 [facility] [place] for referral (narrative)* Outpatient Procedure (Routine) - Authorized Specialty Diagnoses / Procedures Referred By [facility] Referred To [facility] Diagnoses Moderate persistent asthma without complication Procedures NITRIC OXIDE, EXHALED NITRIC OXIDE GAS DETERMINATION Alice Holt PA-C [address] [place] [address] [facility] [address] [place] [address] Referral ID Status Reason Start Date Expiration Date Visits Requested Visits Authorized [id number] Authorized Auto-Generat ed Referral 11/15/2022 12/15/2023 1 1 [facility] [place] for referral (narrative)* Diagnostic Procedure Only (Routine) - Pending Review Specialty Diagnoses / Procedures [facility] IMAGING Diagnoses Acquired cyst of kidney Rising PSA level BPH with urinary obstruction Malignant neoplasm of urinary bladder, unspecified site (HCC) Procedures US KIDNEY/BLADDER US RETROPERITONEAL REAL TIME W/IMAGE COMPLETE Naveed Tyler MD [address] [place] [address] [facility] Imaging Referral ID Status Reason Start Date Expiration Date Visits Requested Visits Authorized [id number] Pending Review Auto-Generat ed Referral 12/27/2022 01/26/2024 1 1 [facility] for referral (narrative)* Diagnostic Procedure Only (Routine) - Pending Review Specialty Diagnoses / Procedures [facility] US IMAGING Diagnoses Nephrolithiasis Procedures US KIDNEY/BLADDER US RETROPERITONEAL REAL TIME W/IMAGE COMPLETE Navin Herbert PA-C [address] [id number] [facility] Imaging Referral ID Status Reason Start Date Expiration Date Visits Requested Visits Authorized [id number] Pending Review Auto-Generat ed Referral 02/22/2023 03/23/2024 1 1 [facility] for referral (narrative)* Outpatient Procedure (Routine) - Authorized Specialty Diagnoses / Procedures [facility] Diagnoses Moderate persistent asthma without complication Procedures NITRIC OXIDE, EXHALED NITRIC OXIDE GAS DETERMINATION Alice Holt PA-C [address] [place] [address] [facility] [address] [place] [address] Referral ID Status Reason Start Date Expiration Date Visits Requested Visits Authorized [id number] Authorized Auto-Generat ed Referral 03/06/2023 04/04/2024 1 1 [facility] [place] for referral (narrative)* Diagnostic Procedure Only (Routine) - Closed Specialty Diagnoses / Procedures Referred By [facility] Referred To Contact XR IMAGING Diagnoses Right hip pain Right groin pain Procedures XR HIP GENERAL 3V PELV/AP/LAT RIGHT RADEX HIP UNILATERAL WITH PELVIS 2-3 VIEWS Leighann Carmichael APRN.HABILITATIVE INTERVENTIONIST [address] [place] [address] [place] [address] Referral ID Status Reason Start Date Expiration Date V isits Requested Visits Authorized [id number] Closed Auto-Generate d Referral 05/16/2023 06/14/2024 1 1 [facility] [place] for referral (narrative)* Diagnostic Procedure Only (Routine) - Closed Specialty Diagnoses / Procedures Referred By [facility] Referred To Contact XR IMAGING Diagnoses Right hip pain Right groin pain Procedures XR HIP GENERAL 3V PELV/AP/LAT RIGHT RADEX HIP UNILATERAL WITH PELVIS 2-3 VIEWS Leighann Carmichael APRN.HABILITATIVE INTERVENTIONIST [address] [place] [address] [place] [address] Referral ID Status Reason Start Date Expiration Date V isits Requested Visits Authorized [id number] Closed Auto-Generate d Referral 05/16/2023 06/14/2024 1 1 [facility] [place] for referral (narrative)* Diagnostic Procedure Only (Routine) - Closed Specialty Diagnoses / Procedures Referred By [facility] Referred To Contact US IMAGING Diagnoses Nephrolithiasis Procedures US KIDNEY/BLADDER US RETROPERITONEAL REAL TIME W/IMAGE COMPLETE Navin Herbert PA-C [address] [place] [address] [place] [address] Referral ID Status Reason Start Date Expiration Date V isits Requested Visits Authorized [id number] Closed Auto-Generate d Referral 02/22/2023 03/23/2024 1 1 [facility] [place] for referral (narrative)* Diagnostic Procedure Only (Routine) - Closed Specialty Diagnoses / Procedures Referred By [facility] Referred To Contact US IMAGING Diagnoses Acquired cyst of kidney Rising PSA level BPH with urinary obstruction Malignant neoplasm of urinary bladder, unspecified site (HCC) Procedures US KIDNEY/BLADDER US RETROPERITONEAL REAL TIME W/IMAGE COMPLETE Naveed Tyler MD [address] [place] [address] [place] [address] Referral ID Status Reason Start Date Expiration Date V isits Requested Visits Authorized [id number] Closed Auto-Generate d Referral 12/27/2022 01/26/2024 1 1 [facility] [place] for referral (narrative)* Diagnostic Procedure Only (Routine) - Closed Specialty Diagnoses / Procedures Referred By [facility] Referred To Contact XR IMAGING Diagnoses Nephrolithiasis Procedures XR ABDOMEN 3V KUB W/OBLIQUES RADIOLOGIC EXAM ABDOMEN 3+ VIEWS Navin Herbert PA-C [address] [place] [address] [place] [address] Referral ID Status Reason Start Date Expiration Date V isits Requested Visits Authorized [id number] Closed Auto-Generate d Referral 07/20/2022 08/19/2023 1 1 [facility] [place] for referral (narrative)* Diagnostic Procedure Only (Routine) - Authorized Specialty Diagnoses / Procedures Referred By [facility] Referred To Contact XR IMAGING Diagnoses Encounter for screening for osteoporosis Abnormal CT scan Procedures DXA - VFA ASSESS ONLY VERTEBRAL FRACTURE ASSESSMENT VIA DXA Leighann Carmichael APRN.CNP [address] [place] [address] [place] [address] Referral ID Status Reason Start Date Expiration Date Visits Requested Visits Authorized [id number] Authorized Auto-Generat ed Referral 08/28/2023 09/26/2024 1 1 * Consult, Test, Treat (Routine) - Authorized Specialty Diagnoses / Procedures Referred By [facility] Referred To Contact Urology Diagnoses Erectile dysfunction, unspecified erectile dysfunction type Procedures CONSULT TO UROLOGY OFFICE/OUTPATIENT NEW HIGH MDM 60 MINUTES Leighann Carmichael APRN.CNP [address] [place] [address] Referral ID Status Reason Start Date Expiration Date Visits Requested Visits Authorized [id number] Authorized PCP Requested Referral 08/28/2023 08/27/2024 1 1 [facility] [place] for visit Narrative* Diagnostic Procedure Only (Routine) - Closed Specialty Diagnoses / Procedures Referred By [facility] Referred To Contact XR IMAGING Diagnoses Right hip pain Right groin pain Procedures XR HIP GENERAL 3V PELV/AP/LAT RIGHT RADEX HIP UNILATERAL WITH PELVIS 2-3 VIEWS Leighann Carmichael APRN.HABILITATIVE INTERVENTIONIST [address] [id number] [place] [address] Referral ID Status Reason Start Date Expiration Date V isits Requested Visits Authorized [id number] Closed Auto-Generate d Referral 05/16/2023 06/14/2024 1 1 [facility] [place] for visit Narrative* Diagnostic Procedure Only (Routine) - Closed Specialty Diagnoses / Procedures Referred By Cont[facility] t Referred To Contact XR IMAGING Diagnoses Nephrolithiasis Procedures XR ABDOMEN 3V KUB W/OBLIQUES RADIOLOGIC EXAM ABDOMEN 3+ VIEWS O'Navin Booth, PA-C [address] [place] [address] [place] [address] Referral ID Status Reason Start Date Expiration Date V isits Requested Visits Authorized [id number] Closed Auto-Generate d Referral 07/20/2022 08/19/2023 1 1 [facility] [place] for visit Narrative* Diagnostic Procedure Only (Routine) - Closed Specialty Diagnoses / Procedures Referred By Cont[facility] t Referred To Contact XR IMAGING Diagnoses Right knee pain, unspecified chronicity Procedures XR KNEE GENERAL 4V AP BOTH/PA BOTH/LAT/MERC RIGHT RADIOLOGIC EXAM KNEE COMPLETE 4/MORE VIEWS Cristian Choe, Jose, DO [address] [place] [address] [place] [address] Referral ID Status Reason Start Date Expiration Date V isits Requested Visits Authorized [id number] Closed Auto-Generate d Referral 07/29/2023 08/27/2024 1 1 [facility] Summary Purpose Family History No Family History Records FoundNo Family History Records FoundNo Family History Records FoundNo Family History Records Found Advance Directives Documents on File Type Date Recorded 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 Advance Directive(s) 11/11/2017 8:15 AM Documents on File Type Date Recorded 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 Advance Directive(s) 11/11/2017 8:15 AM Reason for Referral Specialty Diagnoses / Procedures Referred By Cont[facility] Referred To Contact Diagnoses PAF (paroxysmal atrial fibrillation) (HCC) Procedures CONSULT TO ELECTROPHYSIOLOGY OFFICE/OUTPATIENT [facility] 60-74 MINUTES Carli Hilton MD [address] [place] [address] [facility] [address] [place] [address] Phone: [phone] Referral ID Status Reason Start Date Expiration Date Visits Requested Visits Authorized [id number] Authorized PCP Requested Referral 01/28/2023 04/28/2023 1 1 Specialty Diagnoses / Procedures Referred By [facility] Referred To Contact Procedures HEARING TEST/AUDIOGRAM COMPRE AUDIOMETRY THRESHOLD EVAL SP Mandi Peraza, AUD [address] [place] [address] [facility] [address] [place] [address] Referral ID Status Reason Start Date Expiration Date Visits Requested Visits Authorized [id number] Pending Review Auto-Generat ed Referral 04/22/2023 04/22/2024 1 1 Medications Administered Section Inactive Administered Medications - up to 3 most recent administrations Medication Order MAR Action Action Date Dose Rate Site lidocaine urojet 2 % 10 mL topical gel (GLYDO) 10 mL, URETHRAL, ONCE (UP TO 30 DAYS AMB), 1 dose, On Sat07/24/23 at 1700, APPLY PRIOR TO PROCEDURE DIRECTED Given 08/01/2023 2:20 PM EST 10 mL Additional Source Comments (unrecognized sect ion and content) No Status Records FoundNo Status Records FoundNo Status Records FoundNo Status Records Found INFORMATION SOURCE (unrecogn ized section and content) DATE CREATED AUTHOR AUTHOR'S ORGANIZ ATION 12/18/2022 [facility] DATE CREATED AUTHOR AUTHOR'S ORGANIZ ATION 07/04/2023 [facility] DATE CREATED AUTHOR AUTHOR'S ORGANIZ ATION 10/14/2023 [facility] Source Comments (unrecognize d section and content) In the event this informatio n is protected by the Federal Confidentiality of Alcohol and Drug Abuse Patient Records regulations: The Federal rules restrict any use of the information to criminally investigate or prosecute any alcohol or drug abuse patient.[facility] the event this information is protected by the Federal Confidentiality of Alcohol and Drug Abuse Patient Records regulations: The Federal rules restrict any use of the information to criminally investigate or prosecute any alcohol or drug abuse patient.[facility] Hospital[facility] the event this information is protected by the Federal Confidentiality of Alcohol and Drug Abuse Patient Records regulations: The Federal rules restrict any use of the information to criminally investigate or prosecute any alcohol or drug abuse patient.[facility] HospitalIn the event this information is protected by the Federal Confidentiality of Alcohol and Drug Abuse Patient Records regulations: The Federal rules restrict any use of the information to criminally investigate or prosecute any alcohol or drug abuse patient.[facility] HospitalIn the event this information is protected by the Federal Confidentiality of Alcohol and Drug Abuse Patient Records regulations: The Federal rules restrict any use of the information to criminally investigate or prosecute any alcohol or drug abuse patient.[facility] HospitalIn the event this information is protected by the Federal Confidentiality of Alcohol and Drug Abuse Patient Records regulations: The Federal rules restrict any use of the information to criminally investigate or prosecute any alcohol or drug abuse patient.[facility] HospitalIn the event this information is protected by the Federal Confidentiality of Alcohol and Drug Abuse Patient Records regulations: The Federal rules restrict any use of the information to criminally investigate or prosecute any alcohol or drug abuse patient.[facility] HospitalIn the event this information is protected by the Federal Confidentiality of Alcohol and Drug Abuse Patient Records regulations: The Federal rules restrict any use of the information to criminally investigate or prosecute any alcohol or drug abuse patient.[facility] HospitalIn the event this information is protected by the Federal Confidentiality of Alcohol and Drug Abuse Patient Records regulations: The Federal rules restrict any use of the information to criminally investigate or prosecute any alcohol or drug abuse patient.[facility] HospitalIn the event this information is protected by the Federal Confidentiality of Alcohol and Drug Abuse Patient Records regulations: The Federal rules restrict any use of the information to criminally investigate or prosecute any alcohol or drug abuse patient.[facility] HospitalIn the event this information is protected by the Federal Confidentiality of Alcohol and Drug Abuse Patient Records regulations: The Federal rules restrict any use of the information to criminally investigate or prosecute any alcohol or drug abuse patient.[facility] HospitalIn the event this information is protected by the Federal Confidentiality of Alcohol and Drug Abuse Patient Records regulations: The Federal rules restrict any use of the information to criminally investigate or prosecute any alcohol or drug abuse patient.[facility] HospitalIn the event this information is protected by the Federal Confidentiality of Alcohol and Drug Abuse Patient Records regulations: The Federal rules restrict any use of the information to criminally investigate or prosecute any alcohol or drug abuse patient.[facility] HospitalIn the event this information is protected by the Federal Confidentiality of Alcohol and Drug Abuse Patient Records regulations: The Federal rules restrict any use of the information to criminally investigate or prosecute any alcohol or drug abuse patient.[facility] HospitalIn the event this information is protected by the Federal Confidentiality of Alcohol and Drug Abuse Patient Records regulations: The Federal rules restrict any use of the information to criminally investigate or prosecute any alcohol or drug abuse patient.[facility] HospitalIn the event this information is protected by the Federal Confidentiality of Alcohol and Drug Abuse Patient Records regulations: The Federal rules restrict any use of the information to criminally investigate or prosecute any alcohol or drug abuse patient.[facility] HospitalIn the event this information is protected by the Federal Confidentiality of Alcohol and Drug Abuse Patient Records regulations: The Federal rules restrict any use of the information to criminally investigate or prosecute any alcohol or drug abuse patient.[facility] HospitalIn the event this information is protected by the Federal Confidentiality of Alcohol and Drug Abuse Patient Records regulations: The Federal rules restrict any use of the information to criminally investigate or prosecute any alcohol or drug abuse patient.[facility] HospitalIn the event this information is protected by the Federal Confidentiality of Alcohol and Drug Abuse Patient Records regulations: The Federal rules restrict any use of the information to criminally investigate or prosecute any alcohol or drug abuse patient.[facility] HospitalIn the event this information is protected by the Federal Confidentiality of Alcohol and Drug Abuse Patient Records regulations: The Federal rules restrict any use of the information to criminally investigate or prosecute any alcohol or drug abuse patient.[facility] HospitalIn the event this information is protected by the Federal Confidentiality of Alcohol and Drug Abuse Patient Records regulations: The Federal rules restrict any use of the information to criminally investigate or prosecute any alcohol or drug abuse patient.[facility] HospitalIn the event this information is protected by the Federal Confidentiality of Alcohol and Drug Abuse Patient Records regulations: The Federal rules restrict any use of the information to criminally investigate or prosecute any alcohol or drug abuse patient.[facility] HospitalIn the event this information is protected by the Federal Confidentiality of Alcohol and Drug Abuse Patient Records regulations: The Federal rules restrict any use of the information to criminally investigate or prosecute any alcohol or drug abuse patient.[facility] HospitalIn the event this information is protected by the Federal Confidentiality of Alcohol and Drug Abuse Patient Records regulations: The Federal rules restrict any use of the information to criminally investigate or prosecute any alcohol or drug abuse patient.[facility] HospitalIn the event this information is protected by the Federal Confidentiality of Alcohol and Drug Abuse Patient Records regulations: The Federal rules restrict any use of the information to criminally investigate or prosecute any alcohol or drug abuse patient.[facility] HospitalIn the event this information is protected by the Federal Confidentiality of Alcohol and Drug Abuse Patient Records regulations: The Federal rules restrict any use of the information to criminally investigate or prosecute any alcohol or drug abuse patient.[facility] HospitalIn the event this information is protected by the Federal Confidentiality of Alcohol and Drug Abuse Patient Records regulations: The Federal rules restrict any use of the information to criminally investigate or prosecute any alcohol or drug abuse patient.[facility] HospitalIn the event this information is protected by the Federal Confidentiality of Alcohol and Drug Abuse Patient Records regulations: The Federal rules restrict any use of the information to criminally investigate or prosecute any alcohol or drug abuse patient.[facility] HospitalIn the event this information is protected by the Federal Confidentiality of Alcohol and Drug Abuse Patient Records regulations: The Federal rules restrict any use of the information to criminally investigate or prosecute any alcohol or drug abuse patient.[facility] HospitalIn the event this information is protected by the Federal Confidentiality of Alcohol and Drug Abuse Patient Records regulations: The Federal rules restrict any use of the information to criminally investigate or prosecute any alcohol or drug abuse patient.[facility] HospitalIn the event this information is protected by the Federal Confidentiality of Alcohol and Drug Abuse Patient Records regulations: The Federal rules restrict any use of the information to criminally investigate or prosecute any alcohol or drug abuse patient.[facility] HospitalIn the event this information is protected by the Federal Confidentiality of Alcohol and Drug Abuse Patient Records regulations: The Federal rules restrict any use of the information to criminally investigate or prosecute any alcohol or drug abuse patient.[facility] HospitalIn the event this information is protected by the Federal Confidentiality of Alcohol and Drug Abuse Patient Records regulations: The Federal rules restrict any use of the information to criminally investigate or prosecute any alcohol or drug abuse patient.[facility] HospitalIn the event this information is protected by the Federal Confidentiality of Alcohol and Drug Abuse Patient Records regulations: The Federal rules restrict any use of the information to criminally investigate or prosecute any alcohol or drug abuse patient.[facility] HospitalIn the event this information is protected by the Federal Confidentiality of Alcohol and Drug Abuse Patient Records regulations: The Federal rules restrict any use of the information to criminally investigate or prosecute any alcohol or drug abuse patient.[facility] HospitalIn the event this information is protected by the Federal Confidentiality of Alcohol and Drug Abuse Patient Records regulations: The Federal rules restrict any use of the information to criminally investigate or prosecute any alcohol or drug abuse patient.[facility] HospitalIn the event this information is protected by the Federal Confidentiality of Alcohol and Drug Abuse Patient Records regulations: The Federal rules restrict any use of the information to criminally investigate or prosecute any alcohol or drug abuse patient.[facility] HospitalIn the event this information is protected by the Federal Confidentiality of Alcohol and Drug Abuse Patient Records regulations: The Federal rules restrict any use of the information to criminally investigate or prosecute any alcohol or drug abuse patient.[facility] HospitalIn the event this information is protected by the Federal Confidentiality of Alcohol and Drug Abuse Patient Records regulations: The Federal rules restrict any use of the information to criminally investigate or prosecute any alcohol or drug abuse patient.[facility] HospitalIn the event this information is protected by the Federal Confidentiality of Alcohol and Drug Abuse Patient Records regulations: The Federal rules restrict any use of the information to criminally investigate or prosecute any alcohol or drug abuse patient.[facility] HospitalIn the event this information is protected by the Federal Confidentiality of Alcohol and Drug Abuse Patient Records regulations: The Federal rules restrict any use of the information to criminally investigate or prosecute any alcohol or drug abuse patient.[facility] HospitalIn the event this information is protected by the Federal Confidentiality of Alcohol and Drug Abuse Patient Records regulations: The Federal rules restrict any use of the information to criminally investigate or prosecute any alcohol or drug abuse patient.[facility] HospitalIn the event this information is protected by the Federal Confidentiality of Alcohol and Drug Abuse Patient Records regulations: The Federal rules restrict any use of the information to criminally investigate or prosecute any alcohol or drug abuse patient.[facility] HospitalIn the event this information is protected by the Federal Confidentiality of Alcohol and Drug Abuse Patient Records regulations: The Federal rules restrict any use of the information to criminally investigate or prosecute any alcohol or drug abuse patient.[facility] HospitalIn the event this information is protected by the Federal Confidentiality of Alcohol and Drug Abuse Patient Records regulations: The Federal rules restrict any use of the information to criminally investigate or prosecute any alcohol or drug abuse patient.[facility] HospitalIn the event this information is protected by the Federal Confidentiality of Alcohol and Drug Abuse Patient Records regulations: The Federal rules restrict any use of the information to criminally investigate or prosecute any alcohol or drug abuse patient.[facility] HospitalIn the event this information is protected by the Federal Confidentiality of Alcohol and Drug Abuse Patient Records regulations: The Federal rules restrict any use of the information to criminally investigate or prosecute any alcohol or drug abuse patient.[facility] HospitalIn the event this information is protected by the Federal Confidentiality of Alcohol and Drug Abuse Patient Records regulations: The Federal rules restrict any use of the information to criminally investigate or prosecute any alcohol or drug abuse patient.[facility] HospitalIn the event this information is protected by the Federal Confidentiality of Alcohol and Drug Abuse Patient Records regulations: The Federal rules restrict any use of the information to criminally investigate or prosecute any alcohol or drug abuse patient.[facility] HospitalIn the event this information is protected by the Federal Confidentiality of Alcohol and Drug Abuse Patient Records regulations: The Federal rules restrict any use of the information to criminally investigate or prosecute any alcohol or drug abuse patient.[facility] HospitalIn the event this information is protected by the Federal Confidentiality of Alcohol and Drug Abuse Patient Records regulations: The Federal rules restrict any use of the information to criminally investigate or prosecute any alcohol or drug abuse patient.[facility] HospitalIn the event this information is protected by the Federal Confidentiality of Alcohol and Drug Abuse Patient Records regulations: The Federal rules restrict any use of the information to criminally investigate or prosecute any alcohol or drug abuse patient.[facility] HospitalIn the event this information is protected by the Federal Confidentiality of Alcohol and Drug Abuse Patient Records regulations: The Federal rules restrict any use of the information to criminally investigate or prosecute any alcohol or drug abuse patient.[facility] HospitalIn the event this information is protected by the Federal Confidentiality of Alcohol and Drug Abuse Patient Records regulations: The Federal rules restrict any use of the information to criminally investigate or prosecute any alcohol or drug abuse patient.[facility] HospitalIn the event this information is protected by the Federal Confidentiality of Alcohol and Drug Abuse Patient Records regulations: The Federal rules restrict any use of the information to criminally investigate or prosecute any alcohol or drug abuse patient.[facility] HospitalIn the event this information is protected by the Federal Confidentiality of Alcohol and Drug Abuse Patient Records regulations: The Federal rules restrict any use of the information to criminally investigate or prosecute any alcohol or drug abuse patient.[facility] HospitalIn the event this information is protected by the Federal Confidentiality of Alcohol and Drug Abuse Patient Records regulations: The Federal rules restrict any use of the information to criminally investigate or prosecute any alcohol or drug abuse patient.[facility] HospitalIn the event this information is protected by the Federal Confidentiality of Alcohol and Drug Abuse Patient Records regulations: The Federal rules restrict any use of the information to criminally investigate or prosecute any alcohol or drug abuse patient.[facility] HospitalIn the event this information is protected by the Federal Confidentiality of Alcohol and Drug Abuse Patient Records regulations: The Federal rules restrict any use of the information to criminally investigate or prosecute any alcohol or drug abuse patient.[facility] HospitalIn the event this information is protected by the Federal Confidentiality of Alcohol and Drug Abuse Patient Records regulations: The Federal rules restrict any use of the information to criminally investigate or prosecute any alcohol or drug abuse patient.[facility] HospitalIn the event this information is protected by the Federal Confidentiality of Alcohol and Drug Abuse Patient Records regulations: The Federal rules restrict any use of the information to criminally investigate or prosecute any alcohol or drug abuse patient.[facility] HospitalIn the event this information is protected by the Federal Confidentiality of Alcohol and Drug Abuse Patient Records regulations: The Federal rules restrict any use of the information to criminally investigate or prosecute any alcohol or drug abuse patient.[facility] HospitalIn the event this information is protected by the Federal Confidentiality of Alcohol and Drug Abuse Patient Records regulations: The Federal rules restrict any use of the information to criminally investigate or prosecute any alcohol or drug abuse patient.[facility] HospitalIn the event this information is protected by the Federal Confidentiality of Alcohol and Drug Abuse Patient Records regulations: The Federal rules restrict any use of the information to criminally investigate or prosecute any alcohol or drug abuse patient.[facility] HospitalIn the event this information is protected by the Federal Confidentiality of Alcohol and Drug Abuse Patient Records regulations: The Federal rules restrict any use of the information to criminally investigate or prosecute any alcohol or drug abuse patient.[facility] HospitalIn the event this information is protected by the Federal Confidentiality of Alcohol and Drug Abuse Patient Records regulations: The Federal rules restrict any use of the information to criminally investigate or prosecute any alcohol or drug abuse patient.[facility] HospitalIn the event this information is protected by the Federal Confidentiality of Alcohol and Drug Abuse Patient Records regulations: The Federal rules restrict any use of the information to criminally investigate or prosecute any alcohol or drug abuse patient.[facility] HospitalIn the event this information is protected by the Federal Confidentiality of Alcohol and Drug Abuse Patient Records regulations: The Federal rules restrict any use of the information to criminally investigate or prosecute any alcohol or drug abuse patient.[facility] HospitalIn the event this information is protected by the Federal Confidentiality of Alcohol and Drug Abuse Patient Records regulations: The Federal rules restrict any use of the information to criminally investigate or prosecute any alcohol or drug abuse patient.[facility] HospitalIn the event this information is protected by the Federal Confidentiality of Alcohol and Drug Abuse Patient Records regulations: The Federal rules restrict any use of the information to criminally investigate or prosecute any alcohol or drug abuse patient.[facility] HospitalIn the event this information is protected by the Federal Confidentiality of Alcohol and Drug Abuse Patient Records regulations: The Federal rules restrict any use of the information to criminally investigate or prosecute any alcohol or drug abuse patient.[facility] HospitalIn the event this information is protected by the Federal Confidentiality of Alcohol and Drug Abuse Patient Records regulations: The Federal rules restrict any use of the information to criminally investigate or prosecute any alcohol or drug abuse patient.[facility] HospitalIn the event this information is protected by the Federal Confidentiality of Alcohol and Drug Abuse Patient Records regulations: The Federal rules restrict any use of the information to criminally investigate or prosecute any alcohol or drug abuse patient.[facility] HospitalIn the event this information is protected by the Federal Confidentiality of Alcohol and Drug Abuse Patient Records regulations: The Federal rules restrict any use of the information to criminally investigate or prosecute any alcohol or drug abuse patient.[facility] HospitalIn the event this information is protected by the Federal Confidentiality of Alcohol and Drug Abuse Patient Records regulations: The Federal rules restrict any use of the information to criminally investigate or prosecute any alcohol or drug abuse patient.[facility] HospitalIn the event this information is protected by the Federal Confidentiality of Alcohol and Drug Abuse Patient Records regulations: The Federal rules restrict any use of the information to criminally investigate or prosecute any alcohol or drug abuse patient.[facility] HospitalIn the event this information is protected by the Federal Confidentiality of Alcohol and Drug Abuse Patient Records regulations: The Federal rules restrict any use of the information to criminally investigate or prosecute any alcohol or drug abuse patient.[facility] HospitalIn the event this information is protected by the Federal Confidentiality of Alcohol and Drug Abuse Patient Records regulations: The Federal rules restrict any use of the information to criminally investigate or prosecute any alcohol or drug abuse patient.[facility] HospitalIn the event this information is protected by the Federal Confidentiality of Alcohol and Drug Abuse Patient Records regulations: The Federal rules restrict any use of the information to criminally investigate or prosecute any alcohol or drug abuse patient.[facility] HospitalIn the event this information is protected by the Federal Confidentiality of Alcohol and Drug Abuse Patient Records regulations: The Federal rules restrict any use of the information to criminally investigate or prosecute any alcohol or drug abuse patient.[facility] HospitalIn the event this information is protected by the Federal Confidentiality of Alcohol and Drug Abuse Patient Records regulations: The Federal rules restrict any use of the information to criminally investigate or prosecute any alcohol or drug abuse patient.[facility] HospitalIn the event this information is protected by the Federal Confidentiality of Alcohol and Drug Abuse Patient Records regulations: The Federal rules restrict any use of the information to criminally investigate or prosecute any alcohol or drug abuse patient.[facility] HospitalIn the event this information is protected by the Federal Confidentiality of Alcohol and Drug Abuse Patient Records regulations: The Federal rules restrict any use of the information to criminally investigate or prosecute any alcohol or drug abuse patient.[facility] HospitalIn the event this information is protected by the Federal Confidentiality of Alcohol and Drug Abuse Patient Records regulations: The Federal rules restrict any use of the information to criminally investigate or prosecute any alcohol or drug abuse patient.[facility] HospitalIn the event this information is protected by the Federal Confidentiality of Alcohol and Drug Abuse Patient Records regulations: The Federal rules restrict any use of the information to criminally investigate or prosecute any alcohol or drug abuse patient.[facility] HospitalIn the event this information is protected by the Federal Confidentiality of Alcohol and Drug Abuse Patient Records regulations: The Federal rules restrict any use of the information to criminally investigate or prosecute any alcohol or drug abuse patient.[facility] HospitalIn the event this information is protected by the Federal Confidentiality of Alcohol and Drug Abuse Patient Records regulations: The Federal rules restrict any use of the information to criminally investigate or prosecute any alcohol or drug abuse patient.[facility] HospitalIn the event this information is protected by the Federal Confidentiality of Alcohol and Drug Abuse Patient Records regulations: The Federal rules restrict any use of the information to criminally investigate or prosecute any alcohol or drug abuse patient.[facility] HospitalIn the event this information is protected by the Federal Confidentiality of Alcohol and Drug Abuse Patient Records regulations: The Federal rules restrict any use of the information to criminally investigate or prosecute any alcohol or drug abuse patient.[facility] HospitalIn the event this information is protected by the Federal Confidentiality of Alcohol and Drug Abuse Patient Records regulations: The Federal rules restrict any use of the information to criminally investigate or prosecute any alcohol or drug abuse patient.[facility] HospitalIn the event this information is protected by the Federal Confidentiality of Alcohol and Drug Abuse Patient Records regulations: The Federal rules restrict any use of the information to criminally investigate or prosecute any alcohol or drug abuse patient.[facility] Reason for Visit (unrecogniz ed section and content) Reason Comments Consult Follow Up Reason Comments Refill Request Reason Comments Cardiology Follow Up PAF Reason Comments Lab Orders new orders need plac ed Reason Comments Radiology US Specialty Diagnoses / Procedures Referred By Contac t Referred To Contact US IMAGING Diagnoses Acquired cyst of kidney Rising PSA level Procedures US KIDNEY/BLADDER US RETROPERITONEAL REAL TIME W/IMAGE COMPLETE Naveed Tyler MD [address] [place] [address] Us Imaging Referral ID Status Reason Start Date Expiration Date V isits Requested Visits Authorized [id number] Closed Auto-Generate d Referral 01/01/2022 01/31/2023 1 1 Reason Comments Results Reason Comments Spirometry Specialty Diagnoses / Procedures Referred By Contac t Referred To Contact [facility] Diagnoses Well controlled persistent asthma Procedures NITRIC OXIDE, EXHALED NITRIC OXIDE GAS DETERMINATION Alice Holt PA-C [address] [address] Referral ID Status Reason Start Date Expiration Date V isits Requested Visits Authorized [id number] Closed Auto-Generate d Referral 04/02/2022 05/02/2023 1 1 Reason Comments Established Patient Asthma Specialty Diagnoses / Procedures [facility] Diagnoses Asthma, late onset, severe persistent, uncomplicated Procedures NITRIC OXIDE, EXHALED NITRIC OXIDE GAS DETERMINATION lAice Holt PA-C [address] [place] [address] [address] Referral ID Status Reason Start Date Expiration Date V isits Requested Visits Authorized [id number] Closed Auto-Generate d Referral 04/02/2022 05/02/2023 1 1 Reason Comments Established Patient Asthma Reason Comments Follow Up Patient has been jovana d he has kidney stones, he see's Dr. Naveed Tyler at [facility] and he referred him here for the kidney stones. Reason Onset Date Comments Refill Request 05/11/2022 Reason Onset Date Comments New Patient Allergy evaluati on-pulm referred Immunizations 06/14/2022 Flu vaccination Reason Comments Med Change Request Reason Comments Covid19 Concern Reason Comments Patient Question Reason Comments COVID Reason Comments ED Follow-up Reason Comments Established Patient kidney stones Reason Comments Medication Update Refill Auth Consent Reason Comments Patient Question [facility] ER visit 2 Reason Comments Established Patient 2 month asthma f/u Specialty Diagnoses / Procedures Referred By Contac t Referred To Contact [facility] Diagnoses Moderate persistent asthma without complication Procedures NITRIC OXIDE, EXHALED NITRIC OXIDE GAS DETERMINATION hTuy Valenzuela MD [address] [place] [address] Respiratory [place] [address] [place] [address] Referral ID Status Reason Start Date Expiration Date Visits Requested Visits Authorized [id number] Pending Review Auto-Generat ed Referral 09/17/2022 10/17/2023 1 1 Reason Comments Recheck Reason Onset Date Comments Population Health Navigation Outreach 10/09/2022 [facility] [place] [facility] Reason Comments Established Patient 3 month asthma f/u w ith dipesh Referral ID Status Reason Start Date Expiration Date V isits Requested Visits Authorized [id number] Closed Auto-Generate d Referral 09/17/2022 10/17/2023 1 1 Reason Comments Established Patient 2 month follow up as thma Reason Onset Date Comments Refill Request 12/07/2022 Reason Comments Follow Up Reason Comments Recheck 3 month DM follow up Reason Comments Established Patient 3 month follow up Specialty Diagnoses / Procedures Referred By Contac t Referred To Contact Diagnoses Hearing loss, unspecified hearing loss type, unspecified laterality Procedures HEARING TEST/AUDIOGRAM COMPRE AUDIOMETRY THRESHOLD ISMAELAL Leighann Camara APRN.HABILITATIVE INTERVENTIONIST [address] [id number] [facility] [address] [place] [id number] Referral ID Status Reason Start Date Expiration Date V isits Requested Visits Authorized [id number] Closed Auto-Generate d Referral 02/13/2023 05/14/2023 1 1 Reason Comments Back Pain Low back pain, hip p ain x 4 days Reason Comments Patient Update Specialty Diagnoses / Procedures Referred By Contac t Referred To Contact [facility] Diagnoses Moderate persistent asthma without complication Procedures NITRIC OXIDE, EXHALED NITRIC OXIDE GAS DETERMINATION Alice Holt PA-C [address] [place] [address] Respiratory [place] [address] [place] [address] Referral ID Status Reason Start Date Expiration Date V isits Requested Visits Authorized [id number] Closed Auto-Generate d Referral 03/06/2023 04/04/2024 1 1 Reason Comments Established Patient Asthma Reason Comments Patient Question Reason Comments pain in rt groin Reason Comments Appointment Reason Comments Consult Groin pain Reason Comments Refill Request RPH Managed Reason Onset Date Comments Refill Request 06/18/2023 Reason Comments Eliquis instructions Reason Comments Anesthesia Consult Reason Comments Preparations For Surgery Eliquis Instruc tions Specialty Diagnoses / Procedures Referred By Contac t Referred To Contact US IMAGING Diagnoses Nephrolithiasis Procedures US KIDNEY/BLADDER US RETROPERITONEAL REAL TIME W/IMAGE COMPLETE Navin Herbert PA-C [address] [place] [address] [place] [address] Referral ID Status Reason Start Date Expiration Date V isits Requested Visits Authorized [id number] Closed Auto-Generate d Referral 02/22/2023 03/23/2024 1 1 Specialty Diagnoses / Procedures Referred By Contac t Referred To Contact US IMAGING Diagnoses Acquired cyst of kidney Rising PSA level 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 Reason Comments F/U 6 months Reason Comments Follow Up Reason Comments Results Patient Update [employer] - Other Reason Comments Orders Reason Comments Covid19 Concern Cough, sore throat, +covid Reason Comments Established Patient Follow-Up Reason Comments Cystoscopy-1 Reason Comments Right Knee Pain Right knee pain Reason Comments Recheck Follow up, review la bs Reason Comments Recheck Follow up bloodwork Reason Onset Date Comments Refill Request 10/15/2023 Care Teams (unrecognized sec tion and content) Superintendent Power Relationship Specialty Start Date End Date Jo Woods MD [address] [place] [address] PCP - General Internal Medicine 09/11/21 Carli Hilton MD [address] [place] [address] Referring Cardiology 03/29/21 Superintendent Power Relationship Specialty Start Date End Date Jo Woods MD [address] [place] [address] PCP - General Internal Medicine 09/11/21 Carli Hilton MD [address] [place] [address] Referring Cardiology 03/29/21 Superintendent Power Relationship Specialty Start Date End Date Jo Woods MD [address] [place] [address] PCP - General Internal Medicine 09/11/21 Carli Hilton MD [address] [place] [address] Referring Cardiology 03/29/21 Superintendent Power Relationship Specialty Start Date End Date Jo Woods MD [address] [place] [address] PCP - General Internal Medicine 09/11/21 Carli Hilton MD [address] [place] [address] Referring Cardiology 03/29/21 Superintendent Power Relationship Specialty Start Date End Date Jo Woods MD [address] [place] [address] PCP - General Internal Medicine 09/11/21 Carli Hilton MD [address] [place] [address] Referring Cardiology 03/29/21 Superintendent Power Relationship Specialty Start Date End Date Jo Woods MD [address] [place] [address] PCP - General Internal Medicine 09/11/21 Carli Hilton MD [address] [place] [address] Referring Cardiology 03/29/21 Superintendent Power Relationship Specialty Start Date End Date Jo Woods MD [address] [facility] [place] [address] PCP - General Internal Medicine 09/11/21 Carli Hilton MD [address] [place] [address] Referring Cardiology 03/29/21 Superintendent Power Relationship Specialty Start Date End Date Jo Woods MD [address] [facility] [place] [address] PCP - General Internal Medicine 09/11/21 Carli Hilton MD [address] [place] [address] Referring Cardiology 03/29/21 Superintendent Power Relationship Specialty Start Date End Date Jo Woods MD [address] [place] [address] PCP - General Internal Medicine 09/11/21 Carli Hilton MD [address] [place] [address] Referring Cardiology 03/29/21 Superintendent Power Relationship Specialty Start Date End Date Jo Woods MD [address] [facility] [place] [address] PCP - General Internal Medicine 09/11/21 Carli Hitlon MD [address] [place] [address] Referring Cardiology 03/29/21 Superintendent Power Relationship Specialty Start Date End Date Jo Woods MD [address] [place] [address] PCP - General Internal Medicine 09/11/21 Carli Hilton MD [address] [place] [address] Referring Cardiology 03/29/21 Superintendent Power Relationship Specialty Start Date End Date Jo Woods MD [address] [place] [address] PCP - General Internal Medicine 09/11/21 Carli Hilton MD [address] [place] [place] [address] Referring Cardiology 03/29/21 Superintendent Power Relationship Specialty Start Date End Date Jo Woods MD [address] [place] [address] PCP - General Internal Medicine 09/11/21 Carli Hilton MD [address] [facility] [place] [address] Referring Cardiology 03/29/21 Superintendent Power Relationship Specialty Start Date End Date Jo Woods MD [address] [place] [address] PCP - General Internal Medicine 09/11/21 Carli Hilton MD [address] [place] [place] [address] Referring Cardiology 03/29/21 Superintendent Power Relationship Specialty Start Date End Date oJ Woods MD [address] [place] [address] PCP - General Internal Medicine 09/11/21 Carli Hilton MD [address] [place] [place] [address] Referring Cardiology 03/29/21 Superintendent Power Relationship Specialty Start Date End Date Jo Woods MD [address] [place] [address] PCP - General Internal Medicine 09/11/21 Carli Hilton MD [address] [place] [address] Referring Cardiology 03/29/21 Superintendent Power Relationship Specialty Start Date End Date Jo Woods MD [address] [place] [address] PCP - General Internal Medicine 09/11/21 Carli Hilton MD [address] [place] [address] Referring Cardiology 03/29/21 Superintendent Power Relationship Specialty Start Date End Date Jo Woods MD [address] [place] [address] PCP - General Internal Medicine 09/11/21 Carli Hilton MD [address] [place] [address] Referring Cardiology 03/29/21 Superintendent Power Relationship Specialty Start Date End Date Jo Woods MD [address] [place] [address] PCP - General Internal Medicine 09/11/21 Carli Hilton MD [address] [place] [address] Referring Cardiology 03/29/21 Superintendent Power Relationship Specialty Start Date End Date Jo Woods MD [address] [place] [address] PCP - General Internal Medicine 09/11/21 Carli Hilton MD [address] [place] [address] Referring Cardiology 03/29/21 Superintendent Power Relationship Specialty Start Date End Date Jo Woods MD [address] [place] [address] PCP - General Internal Medicine 09/11/21 Carli Hilton MD [address] [place] [address] Referring Cardiology 03/29/21 Superintendent Power Relationship Specialty Start Date End Date Jo Woods MD [address] [place] [address] PCP - General Internal Medicine 09/11/21 Carli Hilton MD [address] [address] [place] [address] Referring Cardiology 03/29/21 Superintendent Power Relationship Specialty Start Date End Date Jo Woods MD [address] [place] [address] PCP - General Internal Medicine 09/11/21 Carli Hilton MD [address] [place] [address] Referring Cardiology 03/29/21 Superintendent Power Relationship Specialty Start Date End Date Jo Woods MD [address] [place] [address] PCP - General Internal Medicine 09/11/21 Carli Hilton MD [address] [place] [address] Referring Cardiology 03/29/21 Superintendent Power Relationship Specialty Start Date End Date Jo Woods MD [address] [place] [address] PCP - General Internal Medicine 09/11/21 Carli Hilton MD [address] [place] [address] Referring Cardiology 03/29/21 Superintendent Power Relationship Specialty Start Date End Date Jo Woods MD [address] [place] [address] PCP - General Internal Medicine 09/11/21 Carli Hilton MD [address] [place] [address] Referring Cardiology 03/29/21 Superintendent Power Relationship Specialty Start Date End Date Jo Woods MD [address] [place] [address] PCP - General Internal Medicine 09/11/21 Carli Hilton MD [address] [address] [place] [address] Referring Cardiology 03/29/21 Superintendent Power Relationship Specialty Start Date End Date Jo Woods MD [address] [place] [address] PCP - General Internal Medicine 09/11/21 Carli Hilton MD [address] [address] [place] [address] Referring Cardiology 03/29/21 Superintendent Power Relationship Specialty Start Date End Date Jo Woods MD [address] [place] [address] PCP - General Internal Medicine 09/11/21 Carli Hilton MD [address] [place] [address] Referring Cardiology 03/29/21 Superintendent Power Relationship Specialty Start Date End Date Jo Woods MD [address] [place] [address] PCP - General Internal Medicine 09/11/21 Carli Hilton MD [address] [place] [address] Referring Cardiology 03/29/21 Superintendent Power Relationship Specialty Start Date End Date Jo Woods MD [address] [facility] [place] [address] PCP - General Internal Medicine 09/11/21 Carli Hilton MD [address] [facility] [address] [place] [address] Referring Cardiology 03/29/21 Superintendent Power Relationship Specialty Start Date End Date Jo Woods MD [address] [place] [address] PCP - General Internal Medicine 09/11/21 Carli Hilton MD [address] [place] [address] Referring Cardiology 03/29/21 Superintendent Power Relationship Specialty Start Date End Date Jo Woods MD [address] [place] [address] PCP - General Internal Medicine 09/11/21 Carli Hilton MD [address] [place] [address] Referring Cardiology 03/29/21 Superintendent Power Relationship Specialty Start Date End Date Jo Woods MD [address] [facility] [place] [address] PCP - General Internal Medicine 09/11/21 Carli Hilton MD [address] [place] [address] Referring Cardiology 03/29/21 Superintendent Power Relationship Specialty Start Date End Date Jo Woods MD [address] [place] [address] PCP - General Internal Medicine 09/11/21 Carli Hilton MD [address] [place] [address] Referring Cardiology 03/29/21 Superintendent Power Relationship Specialty Start Date End Date Jo Woods MD [address] [place] [address] PCP - General Internal Medicine 09/11/21 Carli Hilton MD [address] [place] [address] Referring Cardiology 03/29/21 Superintendent Power Relationship Specialty Start Date End Date Jo Woods MD [address] [place] [address] PCP - General Internal Medicine 09/11/21 Carli Hilton MD [address] [place] [address] Referring Cardiology 03/29/21 Superintendent Power Relationship Specialty Start Date End Date Jo Woods MD [address] [place] [address] PCP - General Internal Medicine 09/11/21 Carli Hilton MD [address] [place] [address] Referring Cardiology 03/29/21 Superintendent Power Relationship Specialty Start Date End Date Jo Woods MD [address] [facility] [place] [address] PCP - General Internal Medicine 09/11/21 Carli Hilton MD [address] [place] [address] Referring Cardiology 03/29/21 Superintendent Power Relationship Specialty Start Date End Date Jo Woods MD [address] [place] [address] PCP - General Internal Medicine 09/11/21 Carli Hilton MD [address] [place] [address] Referring Cardiology 03/29/21 Superintendent Power Relationship Specialty Start Date End Date Jo Woods MD [address] [place] [address] PCP - General Internal Medicine 09/11/21 Carli Hilton MD [address] [place] [address] Referring Cardiology 03/29/21 Superintendent Power Relationship Specialty Start Date End Date Jo Woods MD [address] [place] [address] PCP - General Internal Medicine 09/11/21 Carli Hilton MD [address] [place] [address] Referring Cardiology 03/29/21 Superintendent Power Relationship Specialty Start Date End Date Jo Woods MD [address] [place] [address] PCP - General Internal Medicine 09/11/21 Carli Hilton MD [address] [place] [address] Referring Cardiology 03/29/21 Superintendent Power Relationship Specialty Start Date End Date Jo Woods MD [address] [place] [address] PCP - General Internal Medicine 09/11/21 Carli Hilton MD [address] [place] [address] Referring Cardiology 03/29/21 Superintendent Power Relationship Specialty Start Date End Date Jo Woods MD [address] [place] [address] PCP - General Internal Medicine 09/11/21 Carli Hilton MD [address] [place] [address] Referring Cardiology 03/29/21 Superintendent Power Relationship Specialty Start Date End Date Jo Woods MD [address] [place] [address] PCP - General Internal Medicine 09/11/21 Carli Hilton MD [address] [place] [address] Referring Cardiology 03/29/21 Superintendent Power Relationship Specialty Start Date End Date Jo Woods MD [address] [place] [address] PCP - General Internal Medicine 09/11/21 Carli Hilton MD [address] [place] [address] Referring Cardiology 03/29/21 Superintendent Power Relationship Specialty Start Date End Date Jo Woods MD [address] [place] [address] PCP - General Internal Medicine 09/11/21 Carli Hilton MD [address] [place] [address] Referring Cardiology 03/29/21 Superintendent Power Relationship Specialty Start Date End Date Jo Woods MD [address] [place] [address] PCP - General Internal Medicine 09/11/21 Carli Hilton MD [address] [place] [address] Referring Cardiology 03/29/21 Superintendent Power Relationship Specialty Start Date End Date Jo Woods MD [address] [place] [address] PCP - General Internal Medicine 09/11/21 Carli Hilton MD [address] [place] [address] Referring Cardiology 03/29/21 Superintendent Power Relationship Specialty Start Date End Date Jo Woods MD [address] [place] [address] PCP - General Internal Medicine 09/11/21 Carli Hilton MD [address] [place] [address] Referring Cardiology 03/29/21 Superintendent Power Relationship Specialty Start Date End Date Jo Woods MD [address] [place] [address] PCP - General Internal Medicine 09/11/21 Carli Hilton MD [address] [address] Referring Cardiology 03/29/21 Superintendent Power Relationship Specialty Start Date End Date Jo Woods MD [address] [place] [address] PCP - General Internal Medicine 09/11/21 Carli Hilton MD [address] [place] [address] Referring Cardiology 03/29/21 Superintendent Power Relationship Specialty Start Date End Date Jo Woods MD [address] [place] [address] PCP - General Internal Medicine 09/11/21 Carli Hilton MD [address] [address] Referring Cardiology 03/29/21 Superintendent Power Relationship Specialty Start Date End Date Jo Woods MD [address] [facility] [address] PCP - General Internal Medicine 09/11/21 Carli Hilton MD [address] [place] [address] Referring Cardiology 03/29/21 Superintendent Power Relationship Specialty Start Date End Date Jo Woods MD [address] [facility] [place] [address] PCP - General Internal Medicine 09/11/21 Carli Hilton MD [address] [place] [address] Referring Cardiology 03/29/21 Superintendent Power Relationship Specialty Start Date End Date Jo Woods MD [address] [facility] [place] [address] PCP - General Internal Medicine 09/11/21 Carli Hilton MD [address] [place] [address] Referring Cardiology 03/29/21 Superintendent Power Relationship Specialty Start Date End Date Jo Woods MD [address] [place] [address] PCP - General Internal Medicine 09/11/21 Carli Hilton MD [address] [place] [address] Referring Cardiology 03/29/21 Superintendent Power Relationship Specialty Start Date End Date Jo Woods MD [address] [place] [address] PCP - General Internal Medicine 09/11/21 Carli Hilton MD [address] [place] [address] Referring Cardiology 03/29/21 Superintendent Power Relationship Specialty Start Date End Date Jo Woods MD [address] [place] [address] PCP - General Internal Medicine 09/11/21 Carli Hilton MD [address] [facility] [address] [place] [address] Referring Cardiology 03/29/21 FOR RECORDS PERTAINING TO PATIENTS WHO ARE OR HAVE BEEN ENROLLED IN A CHEMICAL DEPENDENCY/SUBSTANCEABUSE PROGRAM, SOME INFORMATION MAY BE OMITTED. This clinical summary was aggregated from multiple sources. Caution should be exercised in using it in the provision of clinical care. This summary normalizes information from multiple sources, and as a consequence, information in this document may materially change the coding, format and clinical context of patient data. In addition, data may be omitted in some cases. CLINICAL DECISIONS SHOULD BE BASED ON THE PRIMARY CLINICAL RECORDS. [employer] provides no warranty or guarantee of the accuracy or completeness of information in this document.
[2023-10-20] MEDS: Cephalexin 250 MG Capsule 500 MG PO (12:16)
[2023-10-20 12:30] VITALS: BP 147/74; PULSE 71; RESP 18; TEMP 37.6; O2SAT 93
--- NOTE | 2023-10-23 10:07 | EDS_ITS ---
HPI History of Present Illness Chief Complaint: General Illness [facility] Medical History Afib Alcohol use Anal fissure Asthma Back pain Bladder disease Cardiology follow-up encounter CPAP (continuous positive airway pressure) dependence Diabetes Dietary restriction Gastric reflux GERD (gastroesophageal reflux disease) High cholesterol History of cardioversion History of echocardiogram History of edema History of stress test Hypertension Injury of head and neck Prostate disease Wears glasses Wears hearing aid Home Medications aspirin 81 mg chewable tablet 81 mg PO DAILY@0800 07/24/13 [History Last Taken 12/18/22] metformin 1,000 mg tablet 500 mg PO BIDCM 07/24/13 [History Last Taken 12/14/16 07:00] metoprolol tartrate 50 mg tablet 25 mg PO BID 07/24/13 [History Last Taken 12/21/22] daajllbp-amt-hqwoo acid 0.4 mg-lycopene 300 mcg-lutein 250 mcg tablet (Centrum Silver) 1 ea PO DAILY 07/24/13 [History Last Taken 12/14/16 07:00] tamsulosin 0.4 mg capsule 0.8 mg PO DAILY 07/24/13 [History Last Taken 12/21/22] biotin 5 mg capsule 5 mg PO DAILY 12/14/16 [History Last Taken Unknown] flecainide 100 mg tablet 50 mg PO BID 12/14/16 [History Last Taken 12/21/22] pravastatin 20 mg tablet (Pravachol) 40 mg PO QHS 12/14/16 [History Last Taken Unknown] coenzyme Q10 50 mg chewable tablet 200 mg PO DAILY supplement 10/02/18 [History Last Taken Unknown] levalbuterol tartrate 45 mcg/actuation aerosol inhaler (Xopenex HFA) 1 puff inhalation Q6H PRN Wheezing 08/25/21 [History Last Taken Unknown] amlodipine 5 mg tablet 5 mg PO DAILY 07/08/22 [History Last Taken 12/21/22] apixaban 5 mg tablet (Eliquis) 5 mg PO BID 07/08/22 [History Last Taken 12/18/22] magnesium oxide 400 mg PO DAILY 07/08/22 [History Last Taken Unknown] finasteride 5 mg tablet 5 mg PO DAILY 11/06/22 [History Last Taken Unknown] fluticasone fur. 100 mcg-umeclid 62.5 mcg-vilant 25 mcg inhalat.powder (Trelegy Ellipta) 1 inh inhalation DAILY 11/06/22 [History Last Taken Unknown] doxazosin 4 mg tablet (Cardura) 4 mg PO QHS 11/19/22 [History Last Taken Unknown] pantoprazole 40 mg tablet,delayed release 40 mg PO BID 12/17/22 [History Last Taken 12/21/22] sucralfate 1 gram tablet (Carafate) 1 g PO BID #60 tabs 12/25/22 [Rx Last Taken Unknown] empagliflozin 10 mg tablet (Jardiance) 10 mg PO DAILY 10/20/23 [History Last Taken Unknown] losartan 100 mg tablet 100 mg PO DAILY 10/20/23 [History Last Taken Unknown] sulfamethoxazole 800 mg-trimethoprim 160 mg tablet (Bactrim DS) 1 tab PO BID #20 tabs 10/23/23 [Rx Last Taken Unknown] Allergy/AdvReac Type Severity Reaction Status Date / Time house dust mite Allergy Shortness Verified 10/20/23 10:34 of breath adhesive AdvReac Rash Verified 10/20/23 10:34 naproxen [From Naprosyn] AdvReac Nausea Verified 10/20/23 10:34 Family History Mother Colon cancer Hypertension Father Cancer prostate High cholesterol Hypertension Sister Breast cancer Surgical History Hx of colonoscopy Hx of esophagogastroduodenoscopy Hx of local excision of skin lesion Hx of tonsillectomy Social History Smoking Status: Never smoker MDM MDM MDM Narrative Medical decision making narrative: Addendum?culture cubic positive for greater than 100,000 CFU/mL of ESBL E. coli. It is sensitive to Bactrim. Patient is contacted by nursing staff and is doing well still. Will switch from Keflex to Bactrim. Prescription sent to [facility] in [place]. Radiography Diagnostic Testing: Clinical Impression(s) from Imaging Studies Chest X-Ray 10/20/23 10:46 IMPRESSION: Poor inspiration with some bibasilar atelectasis. Electronically Signed: Jose Guerrero MD at 11:22 EST , Discharge Plan Triage Chief Complaint: General Illness ED Provider: Cristian Matthews Dx/Rx/DC Orders Clinical Impression: Chills, Acute UTI Instructions: ED Bladder Infection, Male (Adult) Prescriptions: New sulfamethoxazole-trimethoprim [Bactrim DS] 800-160 mg tablet 1 tab PO BID Qty: 20 0RF No Action finasteride 5 mg tablet 5 mg PO DAILY Trelegy Ellipta 100-62.5-25 mcg blister with device 1 inh inhalation DAILY tamsulosin 0.4 MG capsule 0.8 mg PO DAILY metformin 1,000 MG tablet 500 mg PO BIDCM Patient Comments: 500 in AM , 1000 in evening metoprolol tartrate 50 MG tablet 25 mg PO BID aspirin 81 MG tablet,chewable 81 mg PO DAILY@0800 Centrum Silver 1 EACH tablet 1 ea PO DAILY biotin 5 MG capsule 5 mg PO DAILY flecainide 100 MG tablet 50 mg PO BID pravastatin [Pravachol] 20 MG tablet 40 mg PO QHS coenzyme Q10 50 MG tablet,chewable 200 mg PO DAILY levalbuterol tartrate [Xopenex HFA] 45 mcg/actuation Hfa Aerosol Inhaler 1 puff INHALATION Q6H PRN (Reason: Wheezing) amlodipine 5 mg tablet 5 mg PO DAILY Eliquis 5 mg tablet 5 mg PO BID Rx Instructions: 10 mg twice a day for the first week. Then 5 mg twice a day. magnesium oxide 400 mg magnesium tablet 400 mg PO DAILY pantoprazole 40 MG tablet,delayed release (DR/EC) 40 mg PO BID doxazosin [Cardura] 4 mg Tablet 4 mg PO QHS Jardiance 10 mg tablet 10 mg PO DAILY Patient Comments: TAKE 1 TABLET BY MOUTH ONCE DAILY IN THE MORNING losartan 100 mg tablet 100 mg PO DAILY Patient Comments: TAKE 1 TABLET BY MOUTH EVERY DAY sucralfate [Carafate] 1 gram tablet 1 g PO BID Qty: 60 3RF Primary Care Provider: Lisa Cardenas Referrals: Lisa Cardenas MD [Primary Care Provider] - 1-2 Days if not improving Activity Restrictions/Additional Instructions: Take all the antibiotic as directed. Return with sustained high fever, new or worsening symptoms. Follow-up with your primary care provider regarding your diabetic medications. Disposition Disposition: Home, Self Care Discharge Date/Time: 10/20/23 12:32
== END 2023-10-20 12:32 | disposition home or self-care (01) ==
PROVIDERS: Emergency Provider Emergency Medicine; PCP Internal Medicine; Visit Provider Emergency Medicine
DX: R68.83 Chills (without fever) (principal); E11.9 Type 2 diabetes mellitus without complications; N39.0 Urinary tract infection, site not specified; I10 Essential (primary) hypertension; K21.9 Gastro-esophageal reflux disease without esophagitis; Z79.01 Long term (current) use of anticoagulants; Z79.84 Long term (current) use of oral hypoglycemic drugs; Z79.899 Other long term (current) drug therapy
CPT/HCPCS: 71045; 80053; 81001; 85025; 87077; 87086; 87088; 87186; 87631; 96360; 96361; 99284; J7030; A4216

== ENCOUNTER 2023-12-12 10:49 | Emergency (ER) | payer MEDICARE, OTHER, SELFPAY ==
[2023-12-12 10:51] VITALS: BP 134/81; PULSE 57; RESP 16; TEMP 36.1; O2SAT 93; BMI 33.5
--- NOTE | 2023-12-12 11:12 | ED.VIS.CHEST ---
HPI <ALBERT Gamino - Last Filed: 12/12/23 12:40> History of Present Illness Chief Complaint: Chest Pain Narrative Narrative: 77-year-old male with past medical history of HTN, DM2, A-fib on Eliquis, metoprolol and flecainide presents with palpitations. On November 25, 2023 he had a stress test at [facility]. He started on the treadmill but was too tired to complete the test and was switched to chemical and the results were normal. He states it shows his ascending aorta size slightly increased and he is scheduled for an outpatient CT scan to assess this in 2 weeks. On November 26 he developed an episode of palpitations where he felt like his heart was pounding and skipping every third beat. The rate was about 60 bpm. This occurred again on December 01 and intermittently almost every day since then. He feels like his heart pounds very strongly and he feels a pressure change sensation in his chest. He states in the past he has had episodes of A-fib RVR requiring cardioversion but this is different and the rate is not fast He is taking metoprolol 12.5 mg twice daily, flecainide and Eliquis. 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 Mauro Jiménez at [facility] <ALBERT Gamino - Last Filed: 12/12/23 12:40> [facility] Medical History Afib Alcohol use Anal fissure Asthma Back pain Bladder disease Cardiology follow-up encounter CPAP (continuous positive airway pressure) dependence Diabetes Dietary restriction Gastric reflux GERD (gastroesophageal reflux disease) High cholesterol History of cardioversion History of echocardiogram History of edema History of stress test Hypertension Injury of head and neck Prostate disease Wears glasses Wears hearing aid Home Medications aspirin 81 mg chewable tablet 81 mg PO DAILY@0800 07/24/13 [History Last Taken 12/18/22] metformin 1,000 mg tablet 500 mg PO BIDCM 07/24/13 [History Last Taken 12/14/16 07:00] metoprolol tartrate 50 mg tablet 25 mg PO BID 07/24/13 [History Last Taken 12/21/22] gquqmvds-qmj-wdzao acid 0.4 mg-lycopene 300 mcg-lutein 250 mcg tablet (Centrum Silver) 1 ea PO DAILY 07/24/13 [History Last Taken 12/14/16 07:00] tamsulosin 0.4 mg capsule 0.8 mg PO DAILY 07/24/13 [History Last Taken 12/21/22] biotin 5 mg capsule 5 mg PO DAILY 12/14/16 [History Last Taken Unknown] flecainide 100 mg tablet 50 mg PO BID 12/14/16 [History Last Taken 12/21/22] pravastatin 20 mg tablet (Pravachol) 40 mg PO QHS 12/14/16 [History Last Taken Unknown] coenzyme Q10 50 mg chewable tablet 200 mg PO DAILY supplement 10/02/18 [History Last Taken Unknown] levalbuterol tartrate 45 mcg/actuation aerosol inhaler (Xopenex HFA) 1 puff inhalation Q6H PRN Wheezing 08/25/21 [History Last Taken Unknown] amlodipine 5 mg tablet 5 mg PO DAILY 07/08/22 [History Last Taken 12/21/22] apixaban 5 mg tablet (Eliquis) 5 mg PO BID 07/08/22 [History Last Taken 12/18/22] magnesium oxide 400 mg PO DAILY 07/08/22 [History Last Taken Unknown] finasteride 5 mg tablet 5 mg PO DAILY 11/06/22 [History Last Taken Unknown] fluticasone fur. 100 mcg-umeclid 62.5 mcg-vilant 25 mcg inhalat.powder (Trelegy Ellipta) 1 inh inhalation DAILY 11/06/22 [History Last Taken Unknown] doxazosin 4 mg tablet (Cardura) 4 mg PO QHS 11/19/22 [History Last Taken Unknown] pantoprazole 40 mg tablet,delayed release 40 mg PO BID 12/17/22 [History Last Taken 12/21/22] sucralfate 1 gram tablet (Carafate) 1 g PO BID #60 tabs 12/25/22 [Rx Last Taken Unknown] empagliflozin 10 mg tablet (Jardiance) 10 mg PO DAILY 10/20/23 [History Last Taken Unknown] losartan 100 mg tablet 100 mg PO DAILY 10/20/23 [History Last Taken Unknown] sulfamethoxazole 800 mg-trimethoprim 160 mg tablet (Bactrim DS) 1 tab PO BID #20 tabs 10/23/23 [Rx Last Taken Unknown] Allergy/AdvReac Type Severity Reaction Status Date / Time house dust mite Allergy Shortness Verified 12/12/23 10:51 of breath adhesive AdvReac Rash Verified 12/12/23 10:51 naproxen [From Naprosyn] AdvReac Nausea Verified 12/12/23 10:51 Family History Mother Colon cancer Hypertension Father Cancer prostate High cholesterol Hypertension Sister Breast cancer Surgical History Hx of colonoscopy Hx of esophagogastroduodenoscopy Hx of local excision of skin lesion Hx of tonsillectomy Social History Smoking Status: Never smoker ROS <ALBERT Gamino - Last Filed: 12/12/23 12:40> ROS ED ROS Narrative Constitutional: Negative for fever, chills, malaise. CVS: Positive for palpitations, chest pressure. No syncope. Respiratory: Negative for shortness of breath, cough, orthopnea. GI: Negative for abdominal pain, nausea, vomiting. EXAM <ALBERT Gamino - Last Filed: 12/12/23 12:40> Physical Exam Narrative Exam Narrative: CONST: Patient sitting in no acute distress. EYES: Normal inspection. NECK: Normal inspection. RESP: No respiratory distress, CTAB. CVS: Regular rate and rhythm, no murmur, no gallop. ABD: Soft and nontender, no guarding or rebound. SKIN: Color normal, no rash, warm, dry, intact. EXTREMITIES: Normal appearance, no pedal edema. NEURO: Alert and answering questions appropriately. PSYCH: Normal affect. Const Vital Signs: 12/12/23 10:51 12/12/23 11:31 12/12/23 11:45 Temperature 96.9 F L Temperature Source Temporal Pulse Rate 57 L 52 L Respiratory Rate 16 20 H Respiratory Effort Normal Non-Labored Blood Pressure 134/81 H 144/80 H Blood Pressure Mean 98 99 Pulse Ox 93 89 Oxygen Delivery Method Room Air 12/12/23 12:00 12/12/23 12:47 Temperature 97.6 F L Temperature Source Pulse Rate 51 L 59 L Respiratory Rate 18 18 Respiratory Effort Blood Pressure 151/80 H 146/78 H Blood Pressure Mean 102 100 Pulse Ox 89 99 Oxygen Delivery Method <Dr. Bill Frank DO - Last Filed: 12/12/23 13:39> Physical Exam Const Vital Signs: 12/12/23 10:51 12/12/23 11:31 12/12/23 11:45 Temperature 96.9 F L Temperature Source Temporal Pulse Rate 57 L 52 L Respiratory Rate 16 20 H Respiratory Effort Normal Non-Labored Blood Pressure 134/81 H 144/80 H Blood Pressure Mean 98 99 Pulse Ox 93 89 Oxygen Delivery Method Room Air 12/12/23 12:00 12/12/23 12:47 Temperature 97.6 F L Temperature Source Pulse Rate 51 L 59 L Respiratory Rate 18 18 Respiratory Effort Blood Pressure 151/80 H 146/78 H Blood Pressure Mean 102 100 Pulse Ox 89 99 Oxygen Delivery Method MDM <ALBERT Gamino - Last Filed: 12/12/23 12:40> [facility] Narrative Medical decision making narrative: History gathered from: Patient and spouse Patient reports intermittent palpitations and chest pressure that started on November 26. Patient has intermittent he had symptoms this morning but is currently asymptomatic. He appears well and nontoxic. He is in normal sinus rhythm in the 50s to 60s with normal vital signs. His exam is unremarkable. Workup including basic labs, electrolytes, troponin are all normal. CXR shows no acute process. Patient remained in sinus rhythm here. I discussed his various possibilities including he is experiencing bouts of A-fib, PVCs etc. but he is on the appropriate medications to treat this. His recent stress test was normal. 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 External records reviewed: 11/25/2023 CT cardiac perfusion stress test No evidence of inducible ischemia, left ventricle normal size, EF 65% Lab Data Attestation: I reviewed the patient's lab results. Labs: Laboratory Results - last 24 hr 12/12/23 11:00 WBC 6.4 RBC 4.49 L Hgb 13.1 Hct 40.8 MCV 90.9 MCH 29.2 MCHC 32.1 RDW Std Deviation 48.0 H RDW Coeff of Justice 14.3 Plt Count 189 MPV 10.8 Immature Gran % (Auto) 0.300 Neut % (Auto) 60.0 Lymph % (Auto) 20.5 [place] % (Auto) 12.9 H Eos % (Auto) 5.7 H Baso % (Auto) 0.6 Absolute Neuts (auto) 3.8 Absolute Lymphs (auto) 1.30 Nucleated RBC % 0 Sodium 142 Potassium 3.9 Chloride 111 H Carbon Dioxide 28.0 Anion Gap 3 L BUN 23 H Creatinine 1.38 H Estim Creat Clear Calc 53.85 Est GFR (MDRD) Af Amer 64 Est GFR (MDRD) Non-Af 53 L BUN/Creatinine Ratio 16.7 Glucose 112 H Calcium 9.1 Magnesium 1.9 Troponin I High Sens 13 Radiography Diagnostic Testing: Clinical Impression(s) from Imaging Studies Chest X-Ray 12/12/23 11:22 IMPRESSION: Mild increased markings at the lung bases suggestive of bibasilar atelectasis is more prominent at the left lung base. Stable elevation of the right hemidiaphragm. Large amount of fecal material is seen in the colon. Electronically Signed: Reginald Khan MD at 11:38 EDT , ED attending interpretation of 2-view chest x-ray shows normal heart size, no acute infiltrate, edema, or effusion. EKG Initial EKG: Attestation: I personally reviewed and interpreted this EKG as follows: Interpretation: No Acute Injury Pattern and Sinus Bradycardia Comments: Sinus bradycardia at 54 bpm Normal intervals, no acute ischemic changes <Dr. Bill Frank, DO - Last Filed: 12/12/23 13:39> [facility] Narrative Medical decision making narrative: History gathered from: Patient and spouse Patient reports intermittent palpitations and chest pressure that started on November 26. Patient has intermittent he had symptoms this morning but is currently asymptomatic. He appears well and nontoxic. He is in normal sinus rhythm in the 50s to 60s with normal vital signs. His exam is unremarkable. Workup including basic labs, electrolytes, troponin are all normal. CXR shows no acute process. Patient remained in sinus rhythm here. I discussed his various possibilities including he is experiencing bouts of A-fib, PVCs etc. but he is on the appropriate medications to treat this. His recent stress test was normal. 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 External records reviewed: 11/25/2023 [place] cardiac perfusion stress test No evidence of inducible ischemia, left ventricle normal size, EF 65% I have personally performed a face to face assessment of the patient and have reviewed the AKSHAT Note. I performed a substantive portion of the visit including all aspects of the following. My quiros findings include: History is 78-year-old male presenting with concerns for cardiac dysrhythmias. Patient is currently on flecainide and Eliquis. Recently underwent cardiac stress test at the beginning of this month. Send able to get a hold of cardiology today. He has been having bouts of PVCs and A-fib. Currently not having symptomology. He did have some tightness in the upper chest. Exam is afebrile vital signs are stable. Patient appears in a sinus rhythm. Medical Decison Making Basic workup including troponin is within normal limits. EKG is sinus bradycardia. My independent interpretation of the chest x-ray is no acute process. At this point patient is rate controlled he is anticoagulated. He is having some PVCs on the monitor. His troponin is normal and not seeing evidence of ACS. I would recommend follow-up with cardiology Lab Data Labs: Laboratory Results - last 24 hr 12/12/23 11:00 WBC 6.4 RBC 4.49 L Hgb 13.1 Hct 40.8 MCV 90.9 MCH 29.2 MCHC 32.1 RDW Std Deviation 48.0 H RDW Coeff of Justice 14.3 Plt Count 189 MPV 10.8 Immature Gran % (Auto) 0.300 Neut % (Auto) 60.0 Lymph % (Auto) 20.5 [place] % (Auto) 12.9 H Eos % (Auto) 5.7 H Baso % (Auto) 0.6 Absolute Neuts (auto) 3.8 Absolute Lymphs (auto) 1.30 Nucleated RBC % 0 Sodium 142 Potassium 3.9 Chloride 111 H Carbon Dioxide 28.0 Anion Gap 3 L BUN 23 H Creatinine 1.38 H Estim Creat Clear Calc 53.85 Est GFR (MDRD) Af Amer 64 Est GFR (MDRD) Non-Af 53 L BUN/Creatinine Ratio 16.7 Glucose 112 H Calcium 9.1 Magnesium 1.9 Troponin I High Sens 13 Radiography Diagnostic Testing: Clinical Impression(s) from Imaging Studies Chest X-Ray 12/12/23 11:22 IMPRESSION: Mild increased markings at the lung bases suggestive of bibasilar atelectasis is more prominent at the left lung base. Stable elevation of the right hemidiaphragm. Large amount of fecal material is seen in the colon. Electronically Signed: Reginald Khan MD at 11:38 EDT , Discharge Plan Triage Chief Complaint: Chest Pain ED Midlevel Provider: Chichi Vergara ED Provider: Bill Frank Dx/Rx/DC Orders Clinical Impression: Palpitations Instructions: ED Palpitations Prescriptions: No Action finasteride 5 mg tablet 5 mg PO DAILY Trelegy Ellipta 100-62.5-25 mcg blister with device 1 inh inhalation DAILY tamsulosin 0.4 MG capsule 0.8 mg PO DAILY metformin 1,000 MG tablet 500 mg PO BIDCM Patient Comments: 500 in AM , 1000 in evening metoprolol tartrate 50 MG tablet 25 mg PO BID aspirin 81 MG tablet,chewable 81 mg PO DAILY@0800 Centrum Silver 1 EACH tablet 1 ea PO DAILY biotin 5 MG capsule 5 mg PO DAILY flecainide 100 MG tablet 50 mg PO BID pravastatin [Pravachol] 20 MG tablet 40 mg PO QHS coenzyme Q10 50 MG tablet,chewable 200 mg PO DAILY levalbuterol tartrate [Xopenex HFA] 45 mcg/actuation Hfa Aerosol Inhaler 1 puff INHALATION Q6H PRN (Reason: Wheezing) amlodipine 5 mg tablet 5 mg PO DAILY Eliquis 5 mg tablet 5 mg PO BID Rx Instructions: 10 mg twice a day for the first week. Then 5 mg twice a day. magnesium oxide 400 mg magnesium tablet 400 mg PO DAILY pantoprazole 40 MG tablet,delayed release (DR/EC) 40 mg PO BID doxazosin [Cardura] 4 mg Tablet 4 mg PO QHS Jardiance 10 mg tablet 10 mg PO DAILY Patient Comments: TAKE 1 TABLET BY MOUTH ONCE DAILY IN THE MORNING losartan 100 mg tablet 100 mg PO DAILY Patient Comments: TAKE 1 TABLET BY MOUTH EVERY DAY sulfamethoxazole-trimethoprim [Bactrim DS] 800-160 mg tablet 1 tab PO BID Qty: 20 0RF sucralfate [Carafate] 1 gram tablet 1 g PO BID Qty: 60 3RF Primary Care Provider: Lisa Cardenas Referrals: Lisa Cardenas MD [Primary Care Provider] - Activity Restrictions/Additional Instructions: Today your screening labs look normal. You are in normal sinus rhythm in the emergency department. I recommend following up with your composition weatherboard installer. Disposition Disposition: Home, Self Care Discharge Date/Time: 12/12/23 12:48
--- NOTE | 2023-12-12 11:14 | EKG12_ITS ---
Test Reason : Blood Pressure : / mmHG Vent. Rate : 054 BPM Atrial Rate : 054 BPM P-R Int : 184 ms QRS Dur : 110 ms QT Int : 468 ms P-R-T Axes : 036 -13 019 degrees QTc Int : 443 ms Sinus bradycardia Otherwise normal ECG Confirmed by AMALIA RAMIREZ, YAMILE ([id number]), research editor SHERRELL GRADY ([id number]) on 12/13/2023 8:19:08 AM Referred By: Confirmed By:YAMILE HOLLAND MD
--- NOTE | 2023-12-12 11:22 | RAD_ITS ---
STUDY: X-RAY CHEST REASON FOR EXAM: Male, 78 years old. Shortness of breath and chest pressure. TECHNIQUE: PA and lateral views of the chest. COMPARISON: Comparison is made with prior study dated October 20, 2023.. FINDINGS: EKG electrodes are seen. There is elevation of the anterior aspect of the right hemidiaphragm. Increased linear markings at the lung bases slightly more prominent at the left lung base suggestive of basilar atelectasis. There is no demonstrated pleural abnormality. Normal size heart. Normal mediastinum and jr. Normal visualized pulmonary arteries. There is atherosclerotic calcification of the aortic arch with tortuosity. There are diffuse degenerative changes of the visualized thoracic spine. Normal visualized ribs, clavicles, and shoulders. Large amount of fecal material is seen in the colon. RAD/Chest PA and Lateral IMPRESSION: Mild increased markings at the lung bases suggestive of bibasilar atelectasis is more prominent at the left lung base. Stable elevation of the right hemidiaphragm. Large amount of fecal material is seen in the colon. Electronically Signed: Reginald Khan MD at 11:38 EDT ,
[2023-12-12 11:26] LABS: Absolute Neutrophil Count 3.8 X10^3/uL (2.0-7.7); Basophil# 0.04 X10^3/uL; Basophil% 0.6 % (0-1); Eosinophil# 0.36 X10^3/uL; Eosinophils% 5.7 % (0-5); Hematocrit 40.8 % (40-54); Hemoglobin 13.1 g/dL (13.0-16.5); Lymphocyte % 20.5 % (19-41); Mean Corp Hgb Conc 32.1 g/dL (32-36); Mean Corpuscular Hgb 29.2 pg (27.0-32.0); Mean Corpuscular Volume 90.9 fL (80-94); Mean Platelet Vol. 10.8 fl (6.2-12.0); Monocyte# 0.82 X10^3/uL; Monocyte% 12.9 % (0-10); NRBC Flagged by Analyzer 0 % (0-5); Neutrophil # 3.81 X10^3/uL (2.7-7.7); Platelet Count 189 K/mm3 (150-450); RBC Distribution Width CV 14.3 % (11.6-14.6); Red Blood Count 4.49 M/mm3 (4.6-6.2); White Blood Count 6.4 K/mm3 (4.4-11.0)
[2023-12-12 11:44] LABS: Anion Gap 3 (5-15); BUN 23 mg/dL (7-18); BUN/Creat Ratio 16.7 RATIO (10-20); Calcium,Total 9.1 mg/dL (8.5-10.1); Chloride 111 mmol/L (98-107); Creatinine, Serum 1.38 mg/dL (0.70-1.30); EST Glomerular Filtration Rate 53 mL/min (>60); Est Glom Filt Rate - Afr Amer 64 mL/min (>60); Estimated Creatinine Clearance 53.85 ml/min; Glucose 112 mg/dL (74-106); Potassium 3.9 mmol/L (3.5-5.1); Sodium Level 142 mmol/L (136-145); Troponin-I HS 13 pg/mL (3.0-78.0)
[2023-12-12 11:45] VITALS: BP 144/80; PULSE 52; RESP 20; O2SAT 89
[2023-12-12 12:00] VITALS: BP 151/80; PULSE 51; RESP 18; O2SAT 89
[2023-12-12 12:28] LABS: Magnesium 1.9 mg/dL (1.6-2.6)
[2023-12-12 12:47] VITALS: BP 146/78; PULSE 59; RESP 18; TEMP 36.4; O2SAT 99
== END 2023-12-12 12:48 | disposition home or self-care (01) ==
PROVIDERS: Physician Assistant; Emergency Provider Emergency Medicine; PCP Internal Medicine; Visit Provider Emergency Medicine
DX: R00.2 Palpitations (principal); I48.91 Unspecified atrial fibrillation; E11.9 Type 2 diabetes mellitus without complications; I10 Essential (primary) hypertension; Z79.899 Other long term (current) drug therapy
CPT/HCPCS: 71046; 80048; 83735; 84484; 85025; 93005; 99283; A4216

== ENCOUNTER → 2024-02-26 | Outpatient (CLI) | payer MEDICARE, OTHER, SELFPAY ==
--- NOTE | 2024-02-26 08:48 | CDU_ITS ---
Reason For Study: CAROTID STENOSIS Rt. Velocities/BP Lt. Velocities/BP Prox CCA 52.8/7.5 cm/sec. Prox CCA 72.4/14.7 cm/sec. Mid CCA 66.0/16.0 cm/sec. Mid CCA 79.0/19.5 cm/sec. Dist CCA 68.9/19.7 cm/sec. Dist CCA 79.9/18.5 cm/sec. Prox ICA 42.7/11.3 cm/sec. Prox ICA 68.8/17.1 cm/sec. Mid ICA 69.8/20.7 cm/sec. Mid ICA 69.9/19.3 cm/sec. Dist ICA 85.3/28.1 cm/sec. Dist ICA 58.9/16.0 cm/sec. Rt. ICA/CCA = 85.3/66.0=1.3. Lt. ICA/CCA = 69.9/79.0=0.9. Prox ECA 97.7/13.1 cm/sec. Prox ECA 91.9/12.7 cm/sec. Rt. Vert. 37.4/11.3 cm/sec. Lt. Vert. 47.8/12.8 cm/sec. Right Extracranial There is intimal thickening but no significant atherosclerotic plaque noted in the right common carotid artery. There is intimal thickening but no significant atherosclerotic plaque noted in the right internal carotid artery. There is intimal thickening but no significant atherosclerotic plaque noted in the right external carotid artery. Antegrade flow is noted in the right vertebral artery. Left Extracranial There is homogeneous, smooth atherosclerotic plaque noted in the left common carotid artery. There is heterogeneous, irregular atherosclerotic plaque noted in the left internal carotid artery. There is intimal thickening but no significant atherosclerotic plaque noted in the left external carotid artery. Antegrade flow is noted in the left vertebral artery. Procedure Carotid Duplex 33706. This is a Carotid Duplex examination using B-mode, color flow and specral Doppler. Exam performed in department. VL/Carotid Duplex Ultrasound Interpretation Summary Normal right extracranial internal carotid. Mild (<50%) stenosis left extracranial internal carotid. Patent and antegrade vertebrals bilaterally. Ordering Physician: Arjun Weldon Referring Physician: Lisa Cardenas Performed By: Argelia Ojeda, OSIRIS, RVT
== END | disposition home or self-care (01) ==
LOC: CVS 08:45
PROVIDERS: PCP Internal Medicine; Referring Provider Ophthalmology; Visit Provider Ophthalmology
DX: I65.22 Occlusion and stenosis of left carotid artery (principal)
CPT/HCPCS: 93880

== ENCOUNTER 2024-06-09 08:40 | Emergency (ER) | payer MEDICARE, OTHER, SELFPAY ==
[2024-06-09] VITALS (9 sets, daily range): BP systolic 84–124; BP diastolic 9–78; PULSE 67–129; RESP 15–20; TEMP 36.2–36.8; O2SAT 93–97; BMI 35.8
--- NOTE | 2024-06-09 09:11 | RAD_ITS ---
HISTORY: palpitations. TECHNIQUE: XR Chest 1 View. COMPARISON: 12/12/2023. FINDINGS: CARDIOMEDIASTINAL BORDERS: Cardiac silhouette within normal limits in size. Mediastinal contour unremarkable with calcification of the aortic knob. LUNGS: Chronic low lung volumes with elevation of the right hemidiaphragm. Very mild bibasilar atelectasis or scarring, unchanged. PLEURA: No pleural effusion or pneumothorax seen. OSSEOUS STRUCTURES: Unremarkable. RAD/Chest 1 View (Portable) IMPRESSION: No acute cardiopulmonary process identified. Electronically Signed: Cely Hall MD at 10:08 EDT ,
--- NOTE | 2024-06-09 09:11 | EKG12_ITS ---
Test Reason : PALP Blood Pressure : / mmHG Vent. Rate : 128 BPM Atrial Rate : 000 BPM P-R Int : 000 ms QRS Dur : 108 ms QT Int : 338 ms P-R-T Axes : 000 -23 -22 degrees QTc Int : 493 ms Accelerated Junctional rhythm Nonspecific ST abnormality Abnormal ECG Confirmed by Pawel Reeder ([id number]), manager editorial ANTONIA CHEN ([id number]) on 06/10/2024 9:25:27 AM Referred By: AB/MONET Confirmed By:Pawel Reeder
--- NOTE | 2024-06-09 09:34 | EX.ED.DYSGE1 ---
HPI History of Present Illness Chief Complaint: Palpitations Informant: patient, spouse/S.O. and EMS Narrative Narrative: 78-year-old male presenting to the emergency room with fast heart rate. Patient states he has a history of cardiac dysrhythmias and sees Dr. Jiménez with [facility] cardiology. He takes Eliquis twice daily and is on flecainide and metoprolol. He also takes supplemental magnesium. The patient states that this morning around 5:00 he got up out of bed and was feeling fine. He was distracted by the fact that he needed to take his trash cans out to the curb. He felt fine going out to the curb and when he came back and states that his heart just did not feel right. The patient states that it did not feel like his atrial fibrillation. He notes that he missed his medications yesterday morning. He resumed them again last night. States he has had cardioversions in the past. The patient notes that he has seen electrophysiology earlier this year through [facility]. He had a normal cardiac stress test. Was noted on a prior chest CT that he had coronary calcifications. [facility] Medical History Wears hearing aid Wears glasses Alcohol use Diabetes Prostate disease Bladder disease High cholesterol Back pain Injury of head and neck Dietary restriction Gastric reflux Asthma CPAP (continuous positive airway pressure) dependence History of edema History of echocardiogram History of stress test Cardiology follow-up encounter History of cardioversion GERD (gastroesophageal reflux disease) Hypertension Anal fissure Afib Home Medications ?Medication ?Instructions ?Recorded ?Last Taken ?Type aspirin 81 mg chewable tablet 81 mg PO DAILY@0800 07/24/13 12/18/22 History metformin 1,000 mg tablet 500 mg PO BIDCM 07/24/13 12/14/16 07:00 History metoprolol tartrate 50 mg tablet 25 mg PO BID 07/24/13 12/21/22 History icozgtmn-cmy-pvgic acid 0.4 1 ea PO DAILY 07/24/13 12/14/16 07:00 History mg-lycopene 300 mcg-lutein 250 mcg tablet (Centrum Silver) tamsulosin 0.4 mg capsule 0.8 mg PO DAILY 07/24/13 12/21/22 History flecainide 100 mg tablet 50 mg PO BID 12/14/16 12/21/22 History pravastatin 20 mg tablet 40 mg PO QHS 12/14/16 Unknown History (Pravachol) coenzyme Q10 50 mg chewable tablet 200 mg PO DAILY supplement 10/02/18 Unknown History levalbuterol tartrate 45 1 puff inhalation Q6H PRN Wheezing 08/25/21 Unknown History mcg/actuation aerosol inhaler (Xopenex HFA) amlodipine 5 mg tablet 5 mg PO DAILY 07/08/22 12/21/22 History apixaban 5 mg tablet (Eliquis) 5 mg PO BID 07/08/22 12/18/22 History magnesium oxide 400 mg PO DAILY 07/08/22 Unknown History finasteride 5 mg tablet 5 mg PO DAILY 11/06/22 Unknown History fluticasone fur. 100 mcg-umeclid 1 inh inhalation DAILY 11/06/22 Unknown History 62.5 mcg-vilant 25 mcg inhalat.powder (Trelegy Ellipta) doxazosin 4 mg tablet (Cardura) 4 mg PO QHS 11/19/22 Unknown History pantoprazole 40 mg tablet,delayed 40 mg PO BID 12/17/22 12/21/22 History release sucralfate 1 gram tablet (Carafate) 1 g PO BID #60 tabs 12/25/22 Unknown Rx losartan 100 mg tablet 100 mg PO DAILY 10/20/23 Unknown History semaglutide 0.25 mg or 0.5 mg (2 mg subcut Diabetes 04/17/24 Unknown History mg/3 mL) subcutaneous pen injector (Ozempic) Allergy/AdvReac Type Severity Reaction Status Date / Time house dust mite Allergy Shortness Verified 04/17/24 13:06 of breath adhesive AdvReac Rash Verified 04/17/24 13:06 naproxen (From Naprosyn) AdvReac Nausea Verified 04/17/24 13:06 Family History Mother Colon cancer Hypertension Father Cancer prostate High cholesterol Hypertension Sister Breast cancer Surgical History Hx of esophagogastroduodenoscopy Hx of local excision of skin lesion Hx of colonoscopy Hx of tonsillectomy Social History Smoking Status: Never smoker ROS ROS ED Constitutional Constitutional ED: Denies chills, fever(s) or weight loss Eyes Eyes: Denies change in vision or diplopia ENT ENT ED: Denies ear pain, rhinorrhea or sore throat Cardiovascular Cardiovascular: Reports palpitations and racing heartbeat; Denies chest pain or orthopnea Respiratory/Chest Respiratory/Chest: Denies cough, dyspnea or orthopnea Gastrointestinal Gastrointestinal: Denies abdominal pain, diarrhea, nausea or vomiting Genitourinary Genitourinary ED: Denies dysuria, hematuria or urinary frequency Musculoskeletal Musculoskeletal: Denies arthralgias or myalgias Integumentary Denies abscess or rash Neurologic Neurologic: Denies headache(s) or weakness Psychiatric Psychiatric: Denies anxiety, depression, suicidal ideation or suicidal thoughts Endocrine Endocrinology: Denies polydipsia, polyphagia or polyuria Allergic/Immunologic Allergic/Immunologic ED: Denies mouth swelling, tongue swelling or urticaria EXAM Physical Exam Const Vital Signs: 06/09/24 08:40 06/09/24 09:51 06/09/24 10:07 Temperature 98.3 F 98.1 F Temperature Source Oral Oral Pulse Rate 129 H 74 67 Respiratory Rate 19 H 16 19 H Blood Pressure 95/68 99/65 84/9 L Blood Pressure Mean 77 76 34 Pulse Ox 93 97 97 Oxygen Delivery Method Room Air Room Air Room Air 06/09/24 10:30 06/09/24 10:49 06/09/24 11:01 Temperature Temperature Source Pulse Rate 73 68 68 Respiratory Rate 19 H 19 H 17 Blood Pressure 98/67 113/76 112/56 L Blood Pressure Mean 77 88 74 Pulse Ox 96 96 95 Oxygen Delivery Method Room Air Room Air Room Air 06/09/24 11:32 06/09/24 12:15 06/09/24 12:23 Temperature 97.2 F L Temperature Source Pulse Rate 68 72 69 Respiratory Rate 20 H 20 H 15 Blood Pressure 117/72 99/69 124/78 H Blood Pressure Mean 87 79 93 Pulse Ox 96 97 96 Oxygen Delivery Method Room Air Positive well nourished and well developed General Appearance ED: well developed and NAD HEENT Reports normocephalic, head/scalp atraumatic and moist mucous membranes Eyes PERRL and EOMs intact bilaterally Neck no lymphadenopathy, supple and no JVD Resp normal respiratory effort and clear to auscultation bilaterally Cardio regular rate, regular rhythm and no murmurs Rate: tachycardic GI normal to inspection, nondistended, normoactive bowel sounds and non-tender Palpation: soft Back/Spine no CVA tenderness and normal ROM Extremity normal to inspection General Extremety ED: Negative for edema General Extremity: Negative for edema Neuro oriented x3 and CN's II-XII intact bilaterally Sensorium / Orientation: alert Motor Exam: strength 5/5 throughout Psych mental status grossly normal Mood & Affect: Negative for depressed or tearful Skin no rashes or lesions noted and no wounds MDM MDM MDM Narrative Medical decision making narrative: Differential diagnosis includes but not limited to cardiac dysrhythmia electrolyte abnormalities acute coronary syndrome On the monitor the patient seems very consistent at a rate of 128-132. There does not appear to be much variability as would be expected with atrial fibrillation however I cannot fully rule this out. They are able to show me a brief 3-lead rhythm strip that they got from their home equipment which shows that there may be P waves of various morphology before each of the narrow complex QRSs. I explained to the patient that he would be a higher risk cardioversion given that he missed his medications yesterday. However given that he has systolic readings 30-40 points below his norm and in the 80s systolic range I am not sure that we have much choice. He did not have any conversion with bearing down or blowing through a syringe. Patient received a dose of adenosine which converted him into a normal sinus rhythm. Repeat EKG shows sinus rhythm with frequent PVCs at a rate of 75 bpm. No clear preexcitation or QT prolongation is noted. Basic blood work was obtained shows a white count 8.3 hemoglobin 13.5 sodium 142 potassium 3.8 magnesium 1.9 troponin 17 glucose 169 BUN of 21 creatinine 1.38. Patient received a fluid bolus. He was observed here in the department. He has had no return of the tacky dysrhythmia and his blood pressure is improved. At this point patient will be discharged home with instructions to follow-up with cardiology. They have 1 scheduled for June and they state that is unlikely that they will be able to get in any earlier. He will return if he has return of symptoms continue home medications. History & Record Review Discussion w/independent historian: EMS personnel, Patient and Significant other Additional record(s) reviewed:: Prior outpatient record, Prior ED visit and Prior labs Lab Data Attestation: I reviewed the patient's lab results. Labs: Laboratory Results - last 24 hr 06/09/24 09:20 WBC 8.3 RBC 4.55 L Hgb 13.5 Hct 43.8 MCV 96.3 H MCH 29.7 MCHC 30.8 L RDW Std Deviation 49.6 H RDW Coeff of Justice 14.0 Plt Count 231 MPV 11.2 Immature Gran % (Auto) 0.200 Neut % (Auto) 66.0 Lymph % (Auto) 17.7 L [place] % (Auto) 11.3 H Eos % (Auto) 4.1 Baso % (Auto) 0.7 Absolute Neuts (auto) 5.5 Absolute Lymphs (auto) 1.47 Nucleated RBC % 0 Sodium 142 Potassium 3.8 Chloride 110 H Carbon Dioxide 28.0 Anion Gap 5 BUN 21 H Creatinine 1.38 H Estim Creat Clear Calc 55.68 Est GFR (MDRD) Af Amer 64 Est GFR (MDRD) Non-Af 53 L BUN/Creatinine Ratio 15.2 Glucose 169 H Calcium 9.4 Magnesium 1.9 Troponin I High Sens 17 Radiography Diagnostic Testing: Clinical Impression(s) from Imaging Studies Chest X-Ray 06/09/24 09:11 IMPRESSION: No acute cardiopulmonary process identified. Electronically Signed: Cely Hall MD at 10:08 EDT Reading Location ID and State: [facility] / [place] Tel , Service support , EKG Initial EKG: Attestation: I personally reviewed and interpreted this EKG as follows: Comments: Narrow complex tachycardic rhythm at a rate of 128. No definitive ST elevation is noted. Discharge Plan Triage Chief Complaint: Palpitations ED Provider: Bill Frank Dx/Rx/DC Orders Clinical Impression: Sustained SVT, Anticoagulated Instructions: ED Understanding Supraventricular Tachycardia (SVT) Prescriptions: No Action finasteride 5 mg tablet 5 mg PO DAILY Trelegy Ellipta 100-62.5-25 mcg blister with device 1 inh inhalation DAILY Ozempic 0.25 mg or 0.5 mg (2 mg/3 mL) pen injector subcut tamsulosin 0.4 MG capsule 0.8 mg PO DAILY metformin 1,000 MG tablet 500 mg PO BIDCM Patient Comments: 500 in AM , 1000 in evening metoprolol tartrate 50 MG tablet 25 mg PO BID aspirin 81 MG tablet,chewable 81 mg PO DAILY@0800 Centrum Silver 1 EACH tablet 1 ea PO DAILY flecainide 100 MG tablet 50 mg PO BID pravastatin [Pravachol] 20 MG tablet 40 mg PO QHS coenzyme Q10 50 MG tablet,chewable 200 mg PO DAILY levalbuterol tartrate [Xopenex HFA] 45 mcg/actuation Hfa Aerosol Inhaler 1 puff INHALATION Q6H PRN (Reason: Wheezing) amlodipine 5 mg tablet 5 mg PO DAILY Eliquis 5 mg tablet 5 mg PO BID Rx Instructions: 10 mg twice a day for the first week. Then 5 mg twice a day. magnesium oxide 400 mg magnesium tablet 400 mg PO DAILY pantoprazole 40 MG tablet,delayed release (DR/EC) 40 mg PO BID doxazosin [Cardura] 4 mg Tablet 4 mg PO QHS losartan 100 mg tablet 100 mg PO DAILY Patient Comments: TAKE 1 TABLET BY MOUTH EVERY DAY sucralfate [Carafate] 1 gram tablet 1 g PO BID Qty: 60 3RF Primary Care Provider: Lisa Cardenas Referrals: Lisa Cardenas MD [Primary Care Provider] - [facility] appointment Mauro Jiménez MD [Non-Staff] - [facility] appointment Print Language: Setswana Disposition Disposition: Home, Self Care Discharge Date/Time: 06/09/24 12:25
[2024-06-09 09:37] LABS: Absolute Lymphocyte Count 1.47 X10^3/uL (0.83-4.51); Absolute Neutrophil Count 5.5 X10^3/uL (2.0-7.7); Basophil# 0.06 X10^3/uL; Basophil% 0.7 % (0-1); Eosinophil# 0.34 X10^3/uL; Eosinophils% 4.1 % (0-5); Hematocrit 43.8 % (40-54); Hemoglobin 13.5 g/dL (13.0-16.5); Lymphocyte # 1.47 X10^3/ul (0.83-4.51); Lymphocyte % 17.7 % (19-41); Mean Corp Hgb Conc 30.8 g/dL (32-36); Mean Corpuscular Hgb 29.7 pg (27.0-32.0); Mean Corpuscular Volume 96.3 fL (80-94); Mean Platelet Vol. 11.2 fl (6.2-12.0); Monocyte# 0.94 X10^3/uL; Monocyte% 11.3 % (0-10); NRBC Flagged by Analyzer 0 % (0-5); Neutrophil # 5.48 X10^3/uL (2.7-7.7); Platelet Count 231 K/mm3 (150-450); RBC Distribution Width SD 49.6 fl (35.1-43.9); Red Blood Count 4.55 M/mm3 (4.6-6.2); White Blood Count 8.3 K/mm3 (4.4-11.0)
[2024-06-09] MEDS: Adenosine 6 MG/2 ML Syringe 12 MG IV (09:40)
--- NOTE | 2024-06-09 09:40 | EKG12_ITS ---
Test Reason : REPEAT Blood Pressure : / mmHG Vent. Rate : 075 BPM Atrial Rate : 075 BPM P-R Int : 190 ms QRS Dur : 108 ms QT Int : 384 ms P-R-T Axes : 032 -14 013 degrees QTc Int : 428 ms Sinus rhythm with frequent Premature ventricular complexes Otherwise normal ECG Confirmed by Pawel Reeder ([id number]), news video editor ANTONIA CHEN ([id number]) on 06/10/2024 9:29:44 AM Referred By: Confirmed By:Pawel Reeder
[2024-06-09 09:50] LABS: Anion Gap 5 (5-15); BUN 21 mg/dL (7-18); BUN/Creat Ratio 15.2 RATIO (10-20); Calcium,Total 9.4 mg/dL (8.5-10.1); Chloride 110 mmol/L (98-107); Creatinine, Serum 1.38 mg/dL (0.70-1.30); EST Glomerular Filtration Rate 53 mL/min (>60); Est Glom Filt Rate - Afr Amer 64 mL/min (>60); Estimated Creatinine Clearance 55.68 ml/min; Glucose 169 mg/dL (74-106); Magnesium 1.9 mg/dL (1.6-2.6); Potassium 3.8 mmol/L (3.5-5.1); Sodium Level 142 mmol/L (136-145); Troponin-I HS 17 pg/mL (3.0-78.0)
[2024-06-09] MEDS: 0.9 % Sodium Chloride Viaflo 500 ML IV.SOLN IV (10:07)
== END 2024-06-09 12:25 | disposition home or self-care (01) ==
PROVIDERS: Emergency Provider Emergency Medicine; PCP Internal Medicine; Visit Provider Emergency Medicine
DX: I47.10 Supraventricular tachycardia, unspecified (principal); I48.91 Unspecified atrial fibrillation; E11.9 Type 2 diabetes mellitus without complications; I49.3 Ventricular premature depolarization; E78.00 Pure hypercholesterolemia, unspecified; K21.9 Gastro-esophageal reflux disease without esophagitis; N42.9 Disorder of prostate, unspecified; J45.909 Unspecified asthma, uncomplicated; Z79.01 Long term (current) use of anticoagulants; Z79.82 Long term (current) use of aspirin; Z79.84 Long term (current) use of oral hypoglycemic drugs; Z79.899 Other long term (current) drug therapy
CPT/HCPCS: 71045; 80048; 83735; 84484; 85025; 93005; 96374; 99285; J7040; A4216; J0153